=== PATIENT | male | born 1940 | race Caucasian/White ===

== ENCOUNTER → 2020-11-25 12:56 | Outpatient (CLI) | payer MEDICARE, SELFPAY ==
--- NOTE | ~2020-11-25 | XR_ITS ---
EXAMINATION: XR lumbar spine 2-3V EXAM DATE: 11/25/2020 13:19 INDICATION: Low back pain, symptoms for years. TECHNIQUE: Lumber spine frontal, lateral, lateral L5-S1 projections for interpretation. There is no prior study for comparison. FINDINGS: There is moderate to severe disc disease at all lumbar levels. Mild diffuse loss of lumbar disc heights. There are large mid and lower lumbar endplate bridging osteophytes. Mild lumbar levosco liosis. Severe lumbar facet arthropathy. There is 2-3 mm retrolisthesis L2 on L3. The vertebral rizwan s are otherwise aligned. There is mild to moderate abdominal aortic arteriosclerosis. IMPRESSION: 1. Advanced lumbar spondylosis. Reviewed, dictated and finalized at location B.
== END ==
PROVIDERS: PCP Family Medicine; Visit Provider Physician Assistant
DX: M47.816 Spondylosis without myelopathy or radiculopathy, lumbar region (principal)
CPT/HCPCS: 72100

== ENCOUNTER → 2020-12-29 14:28 | Outpatient (CLI) | payer MEDICARE, SELFPAY ==
--- NOTE | ~2020-12-29 | MR_ITS ---
EXAMINATION: MR lumbar spine wo con DATE: 12/29/2020 15:17 INDICATION: Bilateral leg weakness. TECHNIQUE: Magnetic resonance imaging (MRI) of the lumbar spine was performed without intravenous con trast. Sequences included sagittal T2-weighted FSE, sagittal T2-weighted FS FSE, sagittal T1-weighted FSE, and axial T2-weighted FSE. COMPARISON: Lumbar spine radiograph 11/25/2020 FINDINGS: There is 3 degrees levocurvature of lumbar spine. There is severely decreased disc height a t T11-T12 and from L1-L2 through L5-S1 with endplate remodeling. There is ligamentum flavum hypertrop hy at the disc levels from T11-T12 through L4-L5. Epidural lipomatosis is noted. The distal spinal co rd signal intensity is normal. The conus medullaris is at L1. There are cysts in the kidneys measurin g up to 3.1 cm on the right. The following disc levels are specifically discussed: L1-L2: The disc is bulging. There is moderate bilateral facet joint osteoarthritis. There is moderate bilateral neural foraminal stenosis. There is mild central canal stenosis. L2-L3: The disc is bulging. There is moderate right and mild left facet joint osteoarthritis. There i s moderate bilateral neural foraminal stenosis. There is severe central canal stenosis. L3-L4: The disc is bulging. There is severe bilateral facet joint osteoarthritis. There is severe alfonzo ateral neural foraminal stenosis. There is severe central canal stenosis. L4-L5: The disc is bulging. There is severe bilateral facet joint osteoarthritis. There is moderate b ilateral neural foraminal stenosis. There is severe central canal stenosis. L5-S1: The disc is bulging. There is severe right and moderate left facet joint osteoarthritis. There is moderate bilateral neural foraminal stenosis. There is mild central canal stenosis. IMPRESSION: 1. Severe lumbar spondylosis. Reviewed, dictated and finalized at location A.
== END ==
PROVIDERS: PCP Family Medicine; Visit Provider Physician Assistant
DX: R29.898 Other symptoms and signs involving the musculoskeletal system (principal); M47.816 Spondylosis without myelopathy or radiculopathy, lumbar region
CPT/HCPCS: 72148

== ENCOUNTER → 2021-01-14 07:41 | Outpatient (CLI) | payer MEDICARE, SELFPAY ==
--- NOTE | ~2021-01-14 | MR_ITS ---
EXAMINATION: MR cervical spine wo con EXAM DATE: 01/14/2021 08:44 INDICATION: Cervical stenosis of spine neck pain right leg numbness, no trauma, prostate ca x 14 yr s . TECHNIQUE: Multi-sequential, multiplanar MR images of the cervical spine were obtained without contra st. Axial T2, axial T2 MERGE sequence. Sagittal T1, T2, T2 fat saturation images also obtained. Th ere is no prior study for comparison. FINDINGS: Moderate to severe disc disease at C5-6 and C6-7. There is 2 mm anterolisthesis C4 on C5, 2 mm retrolisthesis C5 on C6 and C6 on C7. Cord is being compressed at the C3-4 level from both disc bulge and posterior ligamentum flavum hyper trophy, with no CSF space identified surrounding the cord. Central canal measures about [address] There is also vaguely increased T2 cord signal intensity identified on the sagittal T2 fat satur ation sequence, not identified on the other T2-weighted sequences, could be minimal edema. Patient ma y benefit from steroid administration. Cervicomedullary junction is normal in appearance. There are no suspicious marrow signal abnormalitie s. Paraspinal soft tissue is unremarkable. Level by level evaluation: C2-C3: Disc does not extend beyond the endplate margin. Uncovertebral joint arthropathy: Mild bilateral. Facet joint arthropathy: Severe left, moderate right. Neural foraminal stenosis: Mild bilateral. Central canal stenosis: No stenosis. C3-C4: There is a mild diffuse disc bulge. Uncovertebral joint arthropathy: Moderate right, mild to moderate left. Facet joint arthropathy: Severe bilateral. Neural foraminal stenosis: Severe right, moderate to severe left. Central canal stenosis: Moderate, central canal narrowed to 5 mm. Spinal cord being flattened, and suspect mild edema C4-C5: There is a mild diffuse disc bulge. Uncovertebral joint arthropathy: Mild to moderate left, mild right. Facet joint arthropathy: Severe bilateral. Neural foraminal stenosis: Moderate to severe left, mild to moderate right. Central canal stenosis: Mild. C5-C6: There is a mild diffuse disc bulge asymmetric to the right Uncovertebral joint arthropathy: Moderate to severe right, moderate left. Facet joint arthropathy: Severe right, moderate left. Neural foraminal stenosis: Moderate to severe right, moderate left. Central canal stenosis: Mild. C6-C7: There is a mild diffuse disc bulge. Uncovertebral joint arthropathy: Moderate to severe left, moderate right. Facet joint arthropathy: Mild to moderate bilateral. Neural foraminal stenosis: Severe left, moderate to severe right. Central canal stenosis: Mild. C7-T1: Disc does not extend beyond the endplate margin. Uncovertebral joint arthropathy: Moderate left, mild to moderate right. Facet joint arthropathy: Mild to moderate bilateral. Neural foraminal stenosis: No stenosis. Central canal stenosis: No stenosis. IMPRESSION: 1. C3-4 cord compression, suspect mild edema at this level. Consider steroid administration. 2. Advanced arthropathy causing significant multilevel neural foraminal stenosis. I discussed cord compression, recommendation with Peri in the office of Kristopher PAIGE, who ordered the examination. She stated she would convey the information through [facility] that ROYAL is gone for the day. Conversation at 01/14/2021 16:09 CDT. They have my direct office denis ne number for any questions. Reviewed, dictated and finalized at location A. IMPRESSION: 1. C3-4 cord compression, suspect mild edema at this level. Consider steroid a dministration. 2. Advanced arthropathy causing significant multilevel neural foraminal stenos is. I discussed cord co
== END ==
PROVIDERS: PCP Family Medicine
DX: M48.02 Spinal stenosis, cervical region (principal)
CPT/HCPCS: 72141

== ENCOUNTER → 2022-09-06 07:08 | Outpatient (CLI) | payer MEDICARE, SELFPAY ==
--- NOTE | ~2022-09-06 | MR_ITS ---
MRI of the lumbar spine Clinical History: Radiculopathy Technique: Axial T2-weighted images, and sagittal T1-weighted, T2-weighted, and T2 fat-sat images wer e acquired. Findings: Suspected very mild, acute compression deformity at the inferior endplate region of T11, ve rsus reactive marrow signal changes due to underlying degenerative disc disease. There is extensive r eactive marrow signal in the L2 and L3 vertebral bodies due to underlying degenerative disc disease. No other fracture evident. Probable minimal grade 1 retrolisthesis of L2 over L3, and L3 over L4, and of L4 over L5. At L1-L2, there is severe degenerative disc narrowing. Disc osteophyte complex and facet arthropathy result in focal severe spinal canal stenosis/thecal sac compression. There is severe bilateral neural foraminal narrowing. At L2-L3, there is severe degenerative disc 9. Disc bulge and facet arthropathy result in severe thec al sac compression/spinal canal stenosis. There is severe bilateral neural foraminal narrowing. At L3-L4, there is severe degenerative disc narrowing. Disc ossify complex and facet arthropathy resu lt in severe thecal sac compression/spinal canal stenosis. There is severe bilateral neural foraminal narrowing. At L4-L5, there is severe degenerative disc narrowing. Disc bulge and facet arthropathy result in sev ere thecal sac compression/spinal canal stenosis. There is severe bilateral neural foraminal narrowin g. At L5-S1, disc bulge and facet arthropathy are present. No antonina spinal canal stenosis. There is enmanuel re right neural foraminal narrowing and moderate left neural foraminal narrowing. Paravertebral soft tissues are unremarkable. Impression: Severe degenerative spondylosis, as detailed above. There is severe spinal canal stenosis/thecal sac compression, as well as severe bilateral neural foraminal narrowing, at L1-L2, L2-L3, L3-L4, and L4-L 5. Minimal grade 1 retrolisthesis of L2 over L3, of L3 over L4, and of L4 over L5. Possible very mild acute compression deformity at the inferior endplate region of T11 versus reactive marrow signal changes due to underlying degenerative disc disease. Reviewed, dictated and finalized at location M. Impression: Severe degenerative spondylosis, as detailed above. There is severe spinal gardenia l stenosis/thecal sac compression, as well as severe bilateral neural foraminal narrowing, at L1-L2, L2-L3, L3-L4, and L4-L5. Minimal grade 1 retrolisthesis of L2 over L3, of L3 over L4, and of L4 over L5. Possible very mild acute compression deformity at the inferior endplate region of T11 versus reactive marrow signal changes due to underlying degenerative dis c disease.
== END ==
PROVIDERS: PCP Family Medicine; Visit Provider Nurse Practitioner Family
DX: M54.16 Radiculopathy, lumbar region (principal); M48.061 Spinal stenosis, lumbar region without neurogenic claudication; M43.16 Spondylolisthesis, lumbar region
CPT/HCPCS: 72148

== ENCOUNTER 2023-04-06 07:46 | Outpatient (CLI) | payer MEDICARE, SELFPAY | END 2023-04-06 07:47 | disposition home or self-care (01) | PROVIDERS: PCP Family Medicine; Visit Provider Family Medicine | DX: H91.93 Unspecified hearing loss, bilateral (principal) | CPT/HCPCS: 92557; 92567 ==

== ENCOUNTER 2023-06-14 07:30 | Outpatient (RCR) | payer MEDICARE, SELFPAY | END 2023-06-14 23:59 | disposition home or self-care (01) | LOC: ANHAUDIO 07:30 | PROVIDERS: PCP Family Medicine; Visit Provider Family Medicine | DX: Z46.1 Encounter for fitting and adjustment of hearing aid (principal) | CPT/HCPCS: 99199; V5261 ==

== ENCOUNTER 2023-07-19 07:56 | Outpatient (CLI) | payer MEDICARE, SELFPAY ==
[2023-07-19 13:39] LABS: Hematocrit 30.3 % (42.0-52.0); Hemoglobin 9.7 g/dL (14.0-18.0); Mean Corpuscular Hemoglobin 32.3 pg (26-34); Mean Platelet Volume 10.9 fl (7.4-10.4); Platelet Count Result 251 k/mm3 (150-375); Red Cell Distribution Width 11.9 % (11.5-14.5); White Blood Count 5.8 K/mm3 (4.5-10.0)
[2023-07-19 14:00] LABS: Albumin Level 3.9 g/dL (3.5-5.1); Anion Gap 8 mmol/L (8-16); Blood Urea Nitrogen 66 mg/dL (9-20); Calcium 9.6 mg/dL (8.4-10.2); Carbon Dioxide 28 mmol/L (22-30); Chloride 102 mmol/L (98-107); Estimated Glomerular Filt Rate 23; Glucose 124 mg/dL (65-110); Potassium 4.5 mmol/L (3.4-5.0); Sodium 138 mmol/L (137-145)
[2023-07-19 14:11] LABS: Parathyroid Intact 205.9 pg/mL (7.5-53.5)
[2023-07-19 15:37] LABS: Total Protein Urine Random 80 mg/dL
== END 2023-07-19 07:57 | disposition home or self-care (01) ==
PROVIDERS: PCP Family Medicine; Visit Provider Internal Medicine Nephrology
DX: N18.32 Chronic kidney disease, stage 3b (principal)
CPT/HCPCS: 36415; 80069; 81050; 83970; 84156; 85027

== ENCOUNTER 2023-10-18 07:52 | Outpatient (CLI) | payer MEDICARE, SELFPAY ==
[2023-10-18 14:15] LABS: Anion Gap 11 mmol/L (4-12); Blood Urea Nitrogen 67 mg/dL (9-20); Carbon Dioxide 23 mmol/L (22-30); Chloride 103 mmol/L (98-107); Estimated Glomerular Filt Rate 19; Glucose 138 mg/dL (65-110); Potassium 4.3 mmol/L (3.4-5.0); Sodium 137 mmol/L (137-145)
== END 2023-10-18 07:53 | disposition home or self-care (01) ==
PROVIDERS: PCP Family Medicine; Visit Provider Internal Medicine Nephrology
DX: I12.9 Hypertensive chronic kidney disease with stage 1 through stage 4 chronic kidney disease, or unspecified chronic kidney disease (principal); N18.4 Chronic kidney disease, stage 4 (severe); D63.1 Anemia in chronic kidney disease; E11.22 Type 2 diabetes mellitus with diabetic chronic kidney disease
CPT/HCPCS: 36415; 80048

== ENCOUNTER 2023-10-30 13:20 | Emergency (ER) | payer MEDICARE, SELFPAY ==
--- NOTE | 2023-10-30 13:23 | ED.WOUNDLAC ---
HPI - Wound/Laceration General Chief Complaint: Skin/Abscess/Foreign Body Stated Complaint: Cut Arm Time Seen by Provider: 10/30/23 13:31 Source: patient, RN notes reviewed and old records reviewed Mode of arrival: ambulatory Limitations: no limitations History of Present Illness HPI narrative: 82-year-old male presents to the [facility] with concerns of continuing bleeding intermittently 4 skin tears to the right arm. Patient states that he fell over causing the skin tears on Sunday. Denies any loss of consciousness or hitting head. Has full range of motion of the shoulder elbow and wrist. Wounds are well cared for, no signs of infection Treatments prior to arrival: other (Dressing) Related Data Home Medications Medication Instructions Recorded Confirmed magnesium 250 mg tablet 250 mg PO DAILY 08/21/19 10/30/23 Allergies Allergy/AdvReac Type Severity Reaction Status Date / Time allopurinol Allergy Unknown Skin Verified 10/30/23 13:30 Reaction diclofenac Allergy Unknown Pt doesn't Verified 10/30/23 13:30 know doxycycline Allergy Unknown hands Verified 10/30/23 13:30 probenecid Allergy Unknown Skin Verified 10/30/23 13:30 Reaction GOUT MED Allergy Severe RASH Uncoded 10/30/23 13:30 Review of Systems Review of Systems: All systems reviewed & are unremarkable except as noted in HPI and below Constitutional: Constitutional: Reports no additional constitutional complaints Eyes: Eyes: Reports no additional eye complaints ENT: Reports system reviewed and no additional complaints, except as documented Cardiovascular: Cardiovascular: Reports no additional cardiovascular complaints, Denies chest pain and Denies dyspnea Respiratory: Respiratory: Reports no additional respiratory complaints, Denies chest congestion, Denies cough and Denies dyspnea Gastrointestinal: Gastrointestinal: Reports no additional gastrointestinal complaints, Denies abdominal pain, Denies nausea and Denies vomiting Musculoskeletal: Musculoskeletal: Reports no additional musculoskeletal complaints Integumentary/Breasts: Skin/Breast: Reports as per HPI Neurologic: Reports system reviewed and no additional complaints, except as documented Psychiatric: Psychiatric: Reports no additional psychiatric complaints Allergic/Immunologic: Allergic/Immunologic: Reports no additional allergic/immunologic complaints PMFSH Past Medical History Medical History Anemia, unspecified Atherosclerosis of aorta Benign hypertension Chronic kidney disease, stage III (moderate) Elevated prostate specific antigen [PSA] Osteoarthrosis, localized, primary, involving hand Osteoarthrosis, localized, primary, involving lower leg Other specified diabetes mellitus with diabetic neuropathy, unspecified Pure hyperglyceridemia Surgical History Surgical History H/O arthroscopy of knee H/O cataract extraction H/O laminectomy C3-C4 0913- History of appendectomy History of carpal tunnel release History of repair of rotator cuff Family History Family History Mother Hypertension, Onset Age: 72 Father Malignant neoplasm of prostate, Onset Age: 76 Social History Social History Smoking status: Never smoker Alcohol intake: current Substance use: never Do You Feel Safe in your Home?: Yes Lack of Transportation: No Lack of Food: Never True Current Housing: I Have Housing Concerned About Future Housing: No Difficulty Paying Gas/Electric Bills: No Difficulty Paying for Meds: No Currently Unemployed: No Education: High School Diploma/GED Difficulty w/ Childcare or Family Care: No Gender identity (if verbalized by the patient): Male Comments At the time of my signature, I reviewed and agre
[2023-10-30 13:27] VITALS: BP 148/77; PULSE 74; RESP 16; TEMP 37.2; O2SAT 99
== END 2023-10-30 13:46 | disposition home or self-care (01) ==
PROVIDERS: Emergency Provider Nurse Practitioner; PCP Family Medicine
DX: S51.811A Laceration without foreign body of right forearm, initial encounter (principal); S41.111A Laceration without foreign body of right upper arm, initial encounter; W19.XXXA Unspecified fall, initial encounter; N18.30 Chronic kidney disease, stage 3 unspecified; I12.9 Hypertensive chronic kidney disease with stage 1 through stage 4 chronic kidney disease, or unspecified chronic kidney disease; E11.22 Type 2 diabetes mellitus with diabetic chronic kidney disease
CPT/HCPCS: 99212; G0463

== ENCOUNTER 2023-11-15 08:01 | Outpatient (CLI) | payer MEDICARE, SELFPAY ==
[2023-11-15 15:20] LABS: Hemoglobin A1C 5.8 % (<5.7)
[2023-11-15 16:27] LABS: Alanine Aminotransferase 15 U/L (6-50); Albumin Level 3.9 g/dL (3.5-5.1); Alkaline Phosphatase 61 U/L (38-126); Anion Gap 11 mmol/L (4-12); Aspartate Amino Transferase 38 U/L (17-59); Bilirubin,Total 0.6 mg/dL (0.2-1.3); Blood Urea Nitrogen 79 mg/dL (9-20); Calcium 9.7 mg/dL (8.4-10.2); Carbon Dioxide 21 mmol/L (22-30); Chloride 105 mmol/L (98-107); Cholesterol 130 mg/dL (0-200); Estimated Glomerular Filt Rate 19; Glucose 129 mg/dL (65-110); HDL Direct 59 mg/dL; Potassium 4.4 mmol/L (3.4-5.0); Sodium 137 mmol/L (137-145); Triglycerides 92 mg/dL (<150)
[2023-11-15 16:37] LABS: LDL Cholesterol Direct 59 mg/dL
== END 2023-11-15 08:02 | disposition home or self-care (01) ==
PROVIDERS: PCP Family Medicine; Visit Provider Family Medicine
DX: E11.9 Type 2 diabetes mellitus without complications (principal); Z13.220 Encounter for screening for lipoid disorders; Z13.228 Encounter for screening for other metabolic disorders
CPT/HCPCS: 36415; 80053; 80061; 83036

== ENCOUNTER 2023-11-26 07:59 | Outpatient (CLI) | payer MEDICARE, SELFPAY ==
[2023-11-26 12:59] LABS: Appearance Urine Clear (Clear); Bacteria Urine None Seen /hpf; Bilirubin Urine Negative (Negative); Blood Urine Negative (Negative); Color Urine Yellow (Yellow); Glucose Urine UA Negative (Negative); Ketones Urine Negative (Negative); Leukocyte Esterase Ur Negative LEU/UL (Negative); Nitrate Urine Negative (Negative); Non Pathogenic Casts 0-2; Protein Urine 1+ mg/dL (Negative); RBC Urine 0-2 /hpf (0-2); Specific Grav Ur 1.011 (1.001-1.035); Squamous Epithelial Cell Urine None Seen /hpf (Few); Urobilinogen Urine 0.2 mg/dL (<2.0); WBC Urine 0-5 /hpf (0-3); pH Urine 7.5 (5.0-9.0)
[2023-11-26 13:07] LABS: Add Urine Microscopic? YES
[2023-11-26 13:15] LABS: Albumin Level 3.9 g/dL (3.5-5.1); Anion Gap 8 mmol/L (4-12); Blood Urea Nitrogen 67 mg/dL (9-20); Calcium 9.6 mg/dL (8.4-10.2); Carbon Dioxide 26 mmol/L (22-30); Chloride 103 mmol/L (98-107); Estimated Glomerular Filt Rate 21; Glucose 110 mg/dL (65-110); Phosphorus 4.3 mg/dL (2.5-4.5); Potassium 4.6 mmol/L (3.4-5.0); Sodium 137 mmol/L (137-145)
== END 2023-11-26 08:00 | disposition home or self-care (01) ==
PROVIDERS: PCP Family Medicine; Visit Provider Internal Medicine Nephrology
DX: N18.32 Chronic kidney disease, stage 3b (principal)
CPT/HCPCS: 36415; 80069; 81001

== ENCOUNTER 2024-01-08 07:57 | Outpatient (CLI) | payer MEDICARE, SELFPAY ==
[2024-01-08 13:13] LABS: Hematocrit 31.9 % (42.0-52.0); Hemoglobin 10.4 g/dL (14.0-18.0); Mean Corpuscular HGB Conc 32.6 g/dl (32-36); Mean Corpuscular Volume 98.2 fl (80-100); Mean Platelet Volume 10.4 fl (7.4-10.4); Platelet Count Result 276 k/mm3 (150-375); Red Blood Count 3.25 M/mm3 (4.6-6.20); Red Cell Distribution Width 12.5 % (11.5-14.5); White Blood Count 7.2 K/mm3 (4.5-10.0)
[2024-01-08 13:16] LABS: Creatine Kinase 84 U/L (55-170)
[2024-01-08 13:29] LABS: Anion Gap 10 mmol/L (4-12); Blood Urea Nitrogen 52 mg/dL (9-20); Calcium 9.3 mg/dL (8.4-10.2); Carbon Dioxide 26 mmol/L (22-30); Chloride 102 mmol/L (98-107); Estimated Glomerular Filt Rate 22; Glucose 106 mg/dL (65-110); Potassium 4.7 mmol/L (3.4-5.0); Sodium 138 mmol/L (137-145)
[2024-01-08 13:33] LABS: Parathyroid Intact 271.3 pg/mL (7.5-53.5)
[2024-01-08 13:55] LABS: Creatinine Urine 57.9 mg/dL; Total Protein Urine Random 109 mg/dL; Ur Ttl Prot Creatinine Ratio 1.88 mg/mg (0-0.20)
[2024-01-08 14:06] LABS: Vitamin D 25 Hydroxy 70.8 ng/mL
[2024-01-09 13:35] LABS: Sodium Urine Random 81 meq/L
[2024-01-09 13:38] LABS: Appearance Urine Clear (Clear); Bacteria Urine None Seen /hpf; Bilirubin Urine Negative (Negative); Blood Urine Negative (Negative); Color Urine Yellow (Yellow); Glucose Urine UA Negative (Negative); Ketones Urine Negative (Negative); Leukocyte Esterase Ur Negative LEU/UL (Negative); Nitrate Urine Negative (Negative); Non Pathogenic Casts 0-2; Protein Urine 2+ mg/dL (Negative); RBC Urine 0-2 /hpf (0-2); Squamous Epithelial Cell Urine None Seen /hpf (Few); Urobilinogen Urine 0.2 mg/dL (<2.0); WBC Urine 0-5 /hpf (0-3); pH Urine 7.5 (5.0-9.0)
[2024-01-09 14:09] LABS: Add Urine Microscopic? YES
== END 2024-01-08 07:58 | disposition home or self-care (01) ==
PROVIDERS: PCP Family Medicine; Visit Provider Internal Medicine Nephrology
DX: E11.22 Type 2 diabetes mellitus with diabetic chronic kidney disease (principal); I12.9 Hypertensive chronic kidney disease with stage 1 through stage 4 chronic kidney disease, or unspecified chronic kidney disease; N18.4 Chronic kidney disease, stage 4 (severe); D63.1 Anemia in chronic kidney disease
CPT/HCPCS: 36415; 80069; 81001; 82306; 82550; 82570; 83970; 84156; 84300; 85027

== ENCOUNTER 2024-02-12 16:42 | Observation (INO) | payer MEDICARE, SELFPAY ==
[2024-02-12] VITALS (13 sets, daily range): BP systolic 149–165; BP diastolic 58–68; PULSE 68–88; RESP 15–20; TEMP 36.3–36.6; O2SAT 96–100; BMI 27.2
--- NOTE | ~2024-02-12 | XR_ITS ---
EXAMINATION: XR chest 2V DATE: 02/12/2024 20:48 INDICATION: Dyspnea TECHNIQUE: PA and lateral views of the chest were obtained. COMPARISON: Chest radiograph dated 11/21/2017 FINDINGS: Small bilateral pleural effusions with adjacent associated compressive atelectasis in the basilar low er lobes. No other airspace opacities, pulmonary edema or pneumothorax. Severe thoracic spondylosis. Dystrophic calcification is at the bilateral shoulders which could represent chondral calcinosis, landen cific tendinitis or most likely combination thereof. Postoperative change of prior distal right clavi donald resection and right acromioplasty. Partially visualized anterior plate and screw fixation for mid cervical anterior spinal fusion. IMPRESSION: 1. Small bilateral pleural effusions with bibasilar atelectasis. Reviewed, dictated and finalized at location A.
--- NOTE | ~2024-02-12 | US_ITS ---
EXAMINATION: US renal BI DATE: 02/14/2024 08:46 INDICATION: Acute renal insufficiency TECHNIQUE: Multiple ultrasound grayscale images of the kidneys were obtained. COMPARISON: 09/25/2011 FINDINGS: The right kidney measures 10.2 x 5.0 x 4.3 cm. The left kidney measures 11.6 x 5.3 x 4.3 cm. There is bilateral increased renal cortical echogenicity consistent with medical renal disease. There are alfonzo ateral renal cysts the two largest on the right measuring 2.8 cm and the largest on the left measurin g 2.6 cm. There is no hydronephrosis in either kidney. No stones identified. The bladder is normal. IMPRESSION: 1. Bilateral renal cysts. No hydronephrosis. 2. Bilateral increased renal cortical echogenicity consistent with medical renal disease. Reviewed, dictated and finalized at location A. IMPRESSION: 1. Bilateral renal cysts. No hydronephrosis. 2. Bilateral increased renal cortical echogenicity consistent with medical georgiana l disease.
--- NOTE | 2024-02-12 16:49 | ED.GENADULT ---
HPI - General Adult General Chief complaint: Allergic Reaction <Markie Lockwood APRN - Last Filed: 02/12/24 16:50> Stated complaint: allergic rxn <Markie Lockwood APRN - Last Filed: 02/12/24 16:50> Time Seen by Provider: 02/12/24 19:43 <Markie Lockwood GEOTHERMAL SYSTEM INSTALLER - Last Filed: 02/12/24 16:50> Focused HPI: GENERAL: Well-appearing, well-nourished, and in no acute distress. HEAD: Normocephalic, atraumatic. CHEST: Clear to auscultation. No respiratory distress. HEART: Regular rate and rhythm. NEURO: Alert and oriented x3. Patient screened in triage and initial orders placed. Additional care and disposition to be based upon diagnostic testing and treatment. A 3-year-old male history of hypertension CKD presenting to evaluation of bilateral lower extremity swelling. Patient states he was recently placed on amlodipine for additional blood pressure management, states he started to experience swelling to both of his lower extremities and having difficulty opening up his pants due to swelling in his abdomen. Patient contact his PCP and was told to come to the emergency room for further evaluation. Patient states his last dose of amlodipine was yesterday. <Markie Lockwood APRN - Last Filed: 02/12/24 16:50> Focused HPI: GENERAL: Well-appearing, well-nourished, and in no acute distress. HEAD: Normocephalic, atraumatic. CHEST: Clear to auscultation. No respiratory distress. HEART: Regular rate and rhythm. NEURO: Alert and oriented x3. Patient screened in triage and initial orders placed. Additional care and disposition to be based upon diagnostic testing and treatment. A 83-year-old male history of hypertension CKD presenting to evaluation of bilateral lower extremity swelling. Patient states he was recently placed on amlodipine for additional blood pressure management, states he started to experience swelling to both of his lower extremities and having difficulty opening up his pants due to swelling in his abdomen. Patient contact his PCP and was told to come to the emergency room for further evaluation. Patient states his last dose of amlodipine was yesterday. <Brandt Villavicencio MD - Last Filed: 02/12/24 22:43> History of Present Illness HPI narrative: patient 83-year-old gentleman who presents emergency department with chief complaint of shortness of breath and increasing peripheral edema. Patient has prior history of renal insufficiency and reports that he was recently started on amlodipine. Patient reports he has been having increasing swelling all the way up to his abdomen and now is typed put on his pants the patient reports he has been having shortness of breath worse with exertion. <Brandt Villavicencio MD - Last Filed: 02/12/24 22:43> Related Data Home medications: Home Medications Medication Instructions Recorded Confirmed magnesium 250 mg tablet 250 mg PO .3 times weekly 12/03/23 02/12/24 labetalol 100 mg tablet 100 mg PO BID 01/15/24 02/12/24 febuxostat 80 mg tablet 80 mg PO DAILY 02/12/24 02/12/24 lisinopril 20 mg tablet 10 mg PO BID 02/12/24 02/12/24 simvastatin 40 mg tablet 40 mg PO QACDINNER 02/12/24 02/12/24 <Markie Lockwood, GEOTHERMAL SYSTEM INSTALLER - Last Filed: 02/12/24 16:50> Allergies/adverse reactions: Allergies Allergy/AdvReac Type Severity Reaction Status Date / Time allopurinol Allergy Unknown Skin Verified 01/15/24 08:47 Reaction diclofenac Allergy Unknown Pt doesn't Verified 01/15/24 08:47 know doxycycline Allergy Unknown hands Verified 01/15/24 08:47 probenecid Allergy Unknown Skin Verified 01/15/24 08:47 Reaction <Markie Lockwood, GEOTHERMAL SYSTEM INSTALLER - Last Filed: 02/12/24 16:50> Review of Systems Review of Systems: A 10 system review of systems was completed on the patient and is negative except for what is stated in the HPI. Nursing and ancillary documentation was reviewed. <Brandt Villavicencio MD - Last Filed: 02/12/24 22:43> [facility] P
[2024-02-12 17:08] LABS: Basophils Absolute Auto 0.1 K/mm3 (0.0-0.1); Basophils Percent Auto 0.9 % (0.2-1.2); Eosinophils Absolute Auto 0.9 K/mm3 (0-0.3); Eosinophils Percent Auto 9.1 % (0-4.4); Hematocrit 26.9 % (42.0-52.0); Hemoglobin 9.1 g/dL (14.0-18.0); Immature Granulocyte Absolute 0.02 K/mm3 (0.00-0.031); Immature Granulocyte Percent A 0.2 % (0-0.5); Lymphocytes Absolute Auto 2.01 K/mm3 (0.9-3.2); Lymphocytes Percent Auto 20.1 % (18.3-44.2); Mean Corpuscular HGB Conc 33.8 g/dl (32-36); Mean Corpuscular Hemoglobin 32.9 pg (26-34); Mean Corpuscular Volume 97.1 fl (80-100); Mean Platelet Volume 10.3 fl (7.4-10.4); Monocytes Absolute Auto 1.2 K/mm3 (0.1-0.6); Monocytes Percent Auto 12.4 % (2.6-8.5); Neutrophils Absolute Auto 5.7 K/mm3 (1.3-6.7); Neutrophils Percent Auto 57.3 % (45.5-73.1); Platelet Count Result 272 k/mm3 (150-375); Red Blood Count 2.77 M/mm3 (4.6-6.20); Red Cell Distribution Width 12.9 % (11.5-14.5)
[2024-02-12 17:12] LABS: Sodium 136 mmol/L (137-145)
[2024-02-12 17:13] LABS: Alanine Aminotransferase 15 U/L (6-50); Albumin Level 3.7 g/dL (3.5-5.1); Alkaline Phosphatase 69 U/L (38-126); Anion Gap 14 mmol/L (4-12); Aspartate Amino Transferase 22 U/L (17-59); Bilirubin,Total 0.4 mg/dL (0.2-1.3); Blood Urea Nitrogen 66 mg/dL (9-20); Calcium 9.2 mg/dL (8.4-10.2); Carbon Dioxide 15 mmol/L (22-30); Chloride 107 mmol/L (98-107); Estimated CRCL calculation 12 ml/min; Estimated Glomerular Filt Rate 17; Glucose 99 mg/dL (65-110); Potassium 4.6 mmol/L (3.4-5.0)
[2024-02-12 17:21] LABS: NT Pro B Type Natriuretic Pept 8480 pg/mL (19.9-100)
--- NOTE | 2024-02-12 20:08 | ECG_ITS ---
Test Date: 2024-02-12 20:21:20 Measurements Intervals [place] Rate: 69 P: 32 HI: 204 QRS: -32 QRSD: 86 T: 13 QT: 406 QTc: 437 Interpretive Statements SINUS RHYTHM MARKED LEFT AXIS DEVIATION [QRS AXIS < -30] No previous ECG available for comparison Electronically Signed On 02-13-2024 15:52:41 CDT by Chai Shaw M.D.
[2024-02-12 20:32] LABS: Add Urine Microscopic? YES; Appearance Urine Clear (Clear); Bacteria Urine None Seen /hpf; Bilirubin Urine Negative (Negative); Blood Urine Negative (Negative); Color Urine Yellow (Yellow); Glucose Urine UA Negative (Negative); Ketones Urine Negative (Negative); Leukocyte Esterase Ur Negative LEU/UL (Negative); Nitrate Urine Negative (Negative); Non Pathogenic Casts 0-2; Protein Urine 2+ mg/dL (Negative); RBC Urine 0-2 /hpf (0-2); Specific Grav Ur 1.012 (1.001-1.035); Squamous Epithelial Cell Urine None Seen /hpf (Few); Urobilinogen Urine 0.2 mg/dL (<2.0); WBC Urine 0-5 /hpf (0-3)
[2024-02-12 20:37] LABS: Troponin I < 0.012 ng/mL (0.000-0.034)
[2024-02-12] MEDS: FUROSEMIDE INJ 40 MG/4 ML VIAL IV PUSH (22:42)
--- NOTE | 2024-02-12 23:43 | ADMGEN ---
This patient, Shantanu Burleson Jr., was admitted to Medical Room 340-01. Patient/family oriented to hospital policies and general routines including ID bracelet, bed and alarms, visiting hours, pain management, procedures, bathroom and other care routines, personal items, smoking policy, room service/diet, and visiting hours. Information on how to activate the Rapid Response Team has been discussed. Patient/Family are encouraged to report perceived risks to care and to ask questions if they do not understand what they are told or what they should do.
[2024-02-13] VITALS (9 sets, daily range): BP systolic 119–151; BP diastolic 51–55; PULSE 58–80; RESP 16–20; TEMP 36.3–36.7; O2SAT 97–99
--- NOTE | 2024-02-13 | ECHO_ITS ---
Patient Info Name: Shantanu Burleson Age: 83 years : 1940 Gender: Male Ht: 63 in Wt: 143 lbs BSA: 1.71 m2 HR: 71 bpm BP: 151 / 58 mmHg Technical Quality: Fair Exam Date: 02/13/2024 9:48 AM Exam Location: Echo Lab Patient Status: Outpatient Admit Date: 02/12/2024 Staff Ordering Physician: Anna Azar DO Folding Machine Tender: Lisa Hogan RDCS Attending Provider: Anna Azar DO Referring Physician: Doe LUIS; Exam Type: CA echo dop color flow w con Study Info Indications - CHF SYMPTOMS Complete two-dimensional, color flow and Doppler transthoracic echocardiogram is performed with contrast to opacify the left ventricle and to improve the deliniation of the left ventricle endocardial borders. Contrast/Agitated Saline Contrast/Ag. Saline: Definity Amount: 3.00 ml Summary 1. Definity contrast administered improved wall motion interpretation. 2. Left ventricular chamber dimension is normal. 3. Left ventricular systolic function is normal, estimated at 65-70%. 4. The left ventricular diastolic function is abnormal. 5. E/e' 12 is mildly elevated. 6. The aortic valve is not well visualized. Cannot determine number of aortic valve leaflets. 7. There is moderate aortic valve sclerosis. 8. The mitral valve has moderately calcified annulus. 9. There is mild mitral valve regurgitation. 10. There is mild to moderate tricuspid valve regurgitation. 11. No pulmonary hypertension, estimated pulmonary arterial systolic pressure is 37 mmHg. Left Ventricle Definity contrast administered improved wall motion interpretation. E/e' 12 is mildly elevated. Left ventricular chamber dimension is normal. Left ventricular systolic function is normal, estimated at 65-70%. The left ventricular diastolic function is abnormal. Right Ventricle Right ventricular systolic function is normal and with normal TAPSE 2.9 cm. Right ventricular chamber dimension is normal. Left Atria Left atrial chamber dimension is normal. Right Atria Right atrial chamber dimension is normal. Aortic Valve The aortic valve is not well visualized. Cannot determine number of aortic valve leaflets. There is no aortic valve stenosis based on valve area and gradients. There is moderate aortic valve sclerosis. There is no aortic valve regurgitation. Pulmonic Valve There is no pulmonic regurgitation. Mitral Valve The mitral valve has moderately calcified annulus. There is no mitral valve stenosis. There is mild mitral valve regurgitation. Tricuspid Valve There is mild to moderate tricuspid valve regurgitation. No pulmonary hypertension, estimated pulmonary arterial systolic pressure is 37 mmHg. Pericardium/Pleural There is no pericardial effusion. Inferior Vena Cava Normal inferior vena cava with >50% collapse upon inspiration consistent with normal right atrial pressure, 5 mmHg. Aorta The aortic root size at the sinus of Valsalva is normal. Left Ventricular Outflow Tract Name Value Normal LVOT 2D LVOT Diameter 1.88 cm LVOT Doppler LVOT Peak Gradient 5 mmHg LVOT Mean Gradient 3 mmHg LVOT VTI 30.83 cm
[2024-02-13] MEDS: LABETALOL HCL 100 MG TABLET PO ×2 (08:04→16:19)
[2024-02-13] MEDS: hydrALAZINE HCL 50 MG TABLET PO ×2 (08:04→16:20)
[2024-02-13] MEDS: lisinopriL 10 MG TABLET PO (08:04)
[2024-02-13] MEDS: FUROSEMIDE INJ 40 MG/4 ML VIAL IV PUSH (08:04)
--- NOTE | 2024-02-13 08:34 | PM.IMHP ---
H&P: HPI History of Present Illness Date/Time: 02/13/24 08:34 Chief Complaint: Leg swelling Narrative: 83-year-old male with a past medical history of essential hypertension, chronic kidney disease stage IV, diet-controlled diabetes mellitus and gout who presented to the ER with lower extremity swelling. 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 He also stated that is beta-thong with decreased from 200 mg a b.i.d. down to 100 mg state (office note actually states 100 mg down to 50 mg day?) He was taken off thiazide diuretic and lisinopril. He was switched to Norvasc. He was on the Norvasc for about 14 days. On the Norvasc his blood pressures were uncontrolled. He then and his Norvasc was discontinued and he was placed on hydralazine. He reports that when he was switched to the hydralazine his blood pressures were better. But he has continued to be edematous. Patient has edema all the way up through his thighs and into his abdomen. He does not appreciate the swelling in his thighs are abdomen but patient's does note his abdomen is distended. Patient reports a 13 lb weight gain in the 10 day interval. Patient denies any orthopnea. He does have shortness of breath on exertion but he blames this on the degree of pain he has in his back with ambulation not due to any other factors. He is limited in his activities of daily living due to chronic back pain and does not have significant opportunities to exert himself at this time. He reports that he has been losing muscle in is no longer able to lift the bags of salt for the water softener into the tub without his 's help. He denies any chest pain or palpitations. He has noticed a dry cough that developed when the swelling did. He denies any known history of heart disease or CT. Never had an echocardiogram. Review of Systems Review of Systems: 12 systems were reviewed with pertinent positives and negatives per HPI. Except as documented in the HPI, all other systems were reviewed and are negative. [facility] Past Medical History Medical History (Updated 02/13/24 @ 09:18 by Anna Azar DO) Anemia in chronic kidney disease Atherosclerosis of aorta Benign hypertension CKD (chronic kidney disease) stage 4, GFR 15-29 ml/min Diabetes mellitus Now diet controlled but required medications in the past Gout Lumbar stenosis Malignant neoplasm of prostate Mixed hyperlipidemia Osteoarthrosis, localized, primary, involving hand Osteoarthrosis, localized, primary, involving lower leg Surgical History Surgical History H/O arthroscopy of knee H/O cataract extraction H/O laminectomy C3-C4 History of appendectomy History of carpal tunnel release History of repair of rotator cuff Family History Family History Mother Hypertension, Onset Age: 72 Father Malignant neoplasm of prostate, Onset Age: 76 Social History Social History Smoking status: Former smoker Tobacco type: cigarettes Alcohol intake: current Drinks per week: 10 Substance use: never Substance use type: does not use Do You Feel Safe in your Home?: Yes Lack of Transportation: No Lack of Food: Never True Current Housing: I Have Housing Concerned About Future Housing: No Difficulty Paying Gas/Electric Bills: No Difficulty Paying for Meds: No Currently Unemployed: No Education: High School Diploma/GED Difficulty w/ Childcare or Family Care: No Gender identity (if verbalized by the patient): Male Spiritual care concerns: No Meds Home Medications and Allergies Home Medications Medication Instructions Recorded Confirmed Type magnesium 250 mg tablet 250 mg PO .3 times weekly 12/03/23 02/12/24 History labetalo
[2024-02-13] MEDS: SODIUM BICARBONATE TAB 325 MG TABLET PO ×2 (09:30→16:19)
[2024-02-13] MEDS: FEBUXOSTAT 40 MG TABLET 80 MG PO (09:31)
[2024-02-13] MEDS: PERFLUTREN LIPID MICROSPHERES 1.5 ML VIAL DILUTED TO 10 ML TOTAL VOLUME IV PUSH (10:15)
--- NOTE | 2024-02-13 10:18 | PM.CNCAR ---
Assessment and Plan Assessment and plan (1) Edema, peripheral: Code(s): R60.0 - Localized edema Status: Acute Assessment and Plan: On Lasix 40 mg IV daily being cautious due to CKD. (2) Dyspnea on exertion: Code(s): R06.09 - Other forms of dyspnea Status: Acute Assessment and Plan: Obtain echo. (3) CKD stage 4 due to type 2 diabetes mellitus: Code(s): E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; N18.4 - Chronic kidney disease, stage 4 (severe) Status: Acute Assessment and Plan: Nephrology consulted. (4) Essential (primary) hypertension: Code(s): I10 - Essential (primary) hypertension Status: Acute Assessment and Plan: High. Increase Hydralazine 50 mg TID. History of Present Illness History of Present Illness Consult date/time: 02/13/24 10:18 Reason For Visit: Peripheral edema, Shortness of breath acute on chr Narrative: 83 yr old man who is my regular cardiology patient and a patient of Dr. Tompkins presents to ER for edema. He has a history of pre-DM, hypertension, dyslipidemia, anxiety. His is at bedside. Reports he noted more edema of legs tracking up to his abdomen, more sob. Reports he is limited at walking 1 block slowly due to chronic back pain. Denies chest pain, orthopnea, PND, dizziness, palpitations. Cardiovascular Procedures Electrophysiology:: 10/03/23 EKG: Sinus bradycardia at 54 bpm, first degree AV block, delayed precordial R/S transition. 07/24/23 EKG: Sinus bradycardia at 58 bpm, first degree AV block, PAC. Review of Systems Review of Systems: All systems reviewed & are unremarkable except as noted in HPI and below Constitutional: Constitutional: Reports as per HPI, Denies chills and Denies fever(s) Cardiovascular: Cardiovascular: Reports as per HPI, Denies chest pain and Denies irregular heart rhythm Respiratory: Respiratory: Reports dyspnea Gastrointestinal: Gastrointestinal: Reports as per HPI and Denies abdominal pain Genitourinary: Genitourinary: Reports as per HPI and Denies dysuria Musculoskeletal: Musculoskeletal: Reports as per HPI and Reports back pain Neurologic: Reports as per HPI, Denies dizziness and Denies syncope [facility] Past Medical History Medical History (Updated 02/13/24 @ 09:18 by Anna Azar DO) Anemia in chronic kidney disease Atherosclerosis of aorta Benign hypertension CKD (chronic kidney disease) stage 4, GFR 15-29 ml/min Diabetes mellitus Now diet controlled but required medications in the past Gout Lumbar stenosis Malignant neoplasm of prostate Mixed hyperlipidemia Osteoarthrosis, localized, primary, involving hand Osteoarthrosis, localized, primary, involving lower leg Surgical History Surgical History H/O arthroscopy of knee H/O cataract extraction H/O laminectomy C3-C4 History of appendectomy History of carpal tunnel release History of repair of rotator cuff Family History Family History Mother Hypertension, Onset Age: 72 Father Malignant neoplasm of prostate, Onset Age: 76 Social History Social History Smoking status: Former smoker Tobacco type: cigarettes Alcohol intake: current Drinks per week: 10 Substance use: never Substance use type: does not use Do You Feel Safe in your Home?: Yes Lack of Transportation: No Lack of Food: Never True Current Housing: I Have Housing Concerned About Future Housing: No Difficulty Paying Gas/Electric Bills: No Difficulty Paying for Meds: No Currently Unemployed: No Education: High School Diploma/GED Difficulty w/ Childcare or Family Care: No Gender identity (if verbalized by the patient): Male Spiritual care concerns: No Meds Home Medications and Allerg
[2024-02-13] MEDS: HEPARIN SODIUM 5,000 UNITS/ML VIAL 5000 UNITS SUB-Q ×2 (10:35→20:11)
--- NOTE | 2024-02-13 10:38 | IVDEFINITY ---
Prior to administration of IV Definity the patient was educated on the risks and benefits of the imaging enhancing agent including potential adverse side effects. The patient verbalized understanding. Allergies were verified. No exclusion criteria were identified and at least one of the following inclusion criteria were met: 1) physician request, 2) patient technically difficult to image (per the [place] [employer] guidelines of two or more segments not discernable within the apical view), or 3) questionable left ventricular function. ?
--- NOTE | 2024-02-13 12:40 | P.CONNP_ITS ---
Assessment and Plan Assessment and plan (1) NANDINI (acute kidney injury): Code(s): N17.9 - Acute kidney failure, unspecified Status: Acute Assessment and Plan: * etiology not clear * possible related to CHF versus and element of CKD progression * holding GRISELDA-I given diuresis * check renal ultrasound, urine studies, and CPK * re-assess for proteinuria given peripheral edema * follow renal function and UOP with IV diuretics (2) Chronic kidney disease, stage IV (severe): Code(s): N18.4 - Chronic kidney disease, stage 4 (severe) Status: Chronic Assessment and Plan: * baseline creatinine seems to run ~ 2.7 - 3.2mg/dl since the beginning of this year * secondary to diabetes, hypertension, vascular disease and age-related change * follows with Dr. Pena for ongoing CKD management (3) Edema, peripheral: Code(s): R60.0 - Localized edema Status: Acute Assessment and Plan: * on diuretic therapy * possibly CHF(?) * follow response to IV diuretics (4) Dyspnea on exertion: Code(s): R06.09 - Other forms of dyspnea Status: Acute Assessment and Plan: * as noted on admission * Cardiology following * follow-up on Echo * on IV diuresis (5) Metabolic acidosis: Code(s): E87.20 - Acidosis, unspecified Status: Acute Assessment and Plan: * partly due to ARF on CKD and CKD * on oral sodium bicarbonate at this time * trend CO2 levels (6) Essential (primary) hypertension: Code(s): I10 - Essential (primary) hypertension Status: Acute Assessment and Plan: * elevated at this time * holding GRISELDA-I due to #1 and in the context of diuresis * hydralazine adjusted to compensate * follow trend of hemodynamic (7) Diabetes mellitus: Qualifiers: Chronic kidney disease stage: stage 4 (severe) Diabetes mellitus complication detail: with chronic kidney disease Diabetes mellitus complication status: with kidney complications Diabetes mellitus skilled nursing insulin use: without skilled nursing use Diabetes mellitus type: type 2 Qualified Code(s): E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; N18.4 - Chronic kidney disease, stage 4 (severe) Code(s): E11.9 - Type 2 diabetes mellitus without complications Status: Chronic Assessment and Plan: * diet controlled at this time * glycemic management per hospitalist I will continue to follow the patient with you while he remains hospitalized and make further recommendations as deemed necessary. Thank you for allowing me to participate in the care of this patient. History of Present Illness Reason for Consult Consult date: 02/13/24 Reason for consult: acute renal failure (on chronic kidney disease) Chief Complaint Chief complaint: Peripheral edema, Shortness of breath acute on chr History of Present Illness Narrative: The patient is an 83-year-old male with a past medical history as outlined below who presented to [facility] Emergency Room with complaints of increased lower extremity edema/swelling. The patient reports that he had recent medication changes as his blood pressure was not very well controlled, in the interim when these medication changes were occurring, he has noted that his lower extremity edema has progressively worsened and has extended all the way up to his thighs and lower abdomen. He apparently has gained about 13 lb in the last 1-2 weeks. He denies any PND or orthopnea but does report some shortness of breath with exertion. He se
--- NOTE | 2024-02-13 12:40 | PM.CNNEP ---
Assessment and Plan Assessment and plan (1) NANDINI (acute kidney injury): Code(s): N17.9 - Acute kidney failure, unspecified Status: Acute Assessment and Plan: etiology not clear possible related to CHF versus and element of CKD progression holding GRISELDA-I given diuresis check renal ultrasound, urine studies, and CPK re-assess for proteinuria given peripheral edema follow renal function and UOP with IV diuretics (2) Chronic kidney disease, stage IV (severe): Code(s): N18.4 - Chronic kidney disease, stage 4 (severe) Status: Chronic Assessment and Plan: baseline creatinine seems to run ~ 2.7 - 3.2mg/dl since the beginning of this year secondary to diabetes, hypertension, vascular disease and age-related change follows with Dr. Pena for ongoing CKD management (3) Edema, peripheral: Code(s): R60.0 - Localized edema Status: Acute Assessment and Plan: on diuretic therapy possibly CHF(?) follow response to IV diuretics (4) Dyspnea on exertion: Code(s): R06.09 - Other forms of dyspnea Status: Acute Assessment and Plan: as noted on admission Cardiology following follow-up on Echo on IV diuresis (5) Metabolic acidosis: Code(s): E87.20 - Acidosis, unspecified Status: Acute Assessment and Plan: partly due to ARF on CKD and CKD on oral sodium bicarbonate at this time trend CO2 levels (6) Essential (primary) hypertension: Code(s): I10 - Essential (primary) hypertension Status: Acute Assessment and Plan: elevated at this time holding GRISELDA-I due to #1 and in the context of diuresis hydralazine adjusted to compensate follow trend of hemodynamic (7) Diabetes mellitus: Qualifiers: Chronic kidney disease stage: stage 4 (severe) Diabetes mellitus complication detail: with chronic kidney disease Diabetes mellitus complication status: with kidney complications Diabetes mellitus detention insulin use: without detention use Diabetes mellitus type: type 2 Qualified Code(s): E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; N18.4 - Chronic kidney disease, stage 4 (severe) Code(s): E11.9 - Type 2 diabetes mellitus without complications Status: Chronic Assessment and Plan: diet controlled at this time glycemic management per hospitalist I will continue to follow the patient with you while he remains hospitalized and make further recommendations as deemed necessary. Thank you for allowing me to participate in the care of this patient. History of Present Illness Reason for Consult Consult date: 02/13/24 Reason for consult: acute renal failure (on chronic kidney disease) Chief Complaint Chief complaint: Peripheral edema, Shortness of breath acute on chr History of Present Illness Narrative: The patient is an 83-year-old male with a past medical history as outlined below who presented to [facility] Emergency Room with complaints of increased lower extremity edema/swelling. The patient reports that he had recent medication changes as his blood pressure was not very well controlled, in the interim when these medication changes were occurring, he has noted that his lower extremity edema has progressively worsened and has extended all the way up to his thighs and lower abdomen. He apparently has gained about 13 lb in the last 1-2 weeks. He denies any PND or orthopnea but does report some shortness of breath with exertion. He seemed to think that his shortness of breath was more associated with his back pain then exertional activities. He also reports increased fatigue in association with his back pain which limits his attack next tibias of daily living. He reports no chest pain, palpitations, dizziness, lightheadedness, fevers, chills, or any other subjective symptoms. Given the context of worsening lower extremity swelling and edema
[2024-02-13] MEDS: SIMVASTATIN 20 MG TABLET 40 MG PO (16:19)
[2024-02-14] VITALS: PULSE 73
[2024-02-14 04:00] VITALS: PULSE 72
[2024-02-14 05:53] LABS: Hematocrit 27.1 % (42.0-52.0); Hemoglobin 9.2 g/dL (14.0-18.0); Mean Corpuscular HGB Conc 33.9 g/dl (32-36); Mean Corpuscular Hemoglobin 32.7 pg (26-34); Mean Corpuscular Volume 96.4 fl (80-100); Mean Platelet Volume 10.3 fl (7.4-10.4); Platelet Count Result 270 k/mm3 (150-375); Red Blood Count 2.81 M/mm3 (4.6-6.20); White Blood Count 7.2 K/mm3 (4.5-10.0)
[2024-02-14 06:00] VITALS: BP 144/62; PULSE 77; RESP 18; TEMP 36.8; O2SAT 96
[2024-02-14 06:20] LABS: Magnesium 1.6 mg/dL (1.6-2.3)
[2024-02-14 06:22] LABS: Albumin Level 3.3 g/dL (3.5-5.1); Anion Gap 11 mmol/L (4-12); Blood Urea Nitrogen 65 mg/dL (9-20); Calcium 9.1 mg/dL (8.4-10.2); Carbon Dioxide 21 mmol/L (22-30); Chloride 104 mmol/L (98-107); Creatine Kinase 130 U/L (55-170); Estimated CRCL calculation 12 ml/min; Estimated Glomerular Filt Rate 20; Glucose 94 mg/dL (65-110); Phosphorus 4.2 mg/dL (2.5-4.5); Potassium 3.8 mmol/L (3.4-5.0); Sodium 136 mmol/L (137-145)
[2024-02-14 07:18] LABS: Creatinine Urine 30.8 mg/dL; Total Protein Urine Random 36 mg/dL; Urea Random Urine 273 MG/DL
[2024-02-14 07:41] LABS: Eosinophil Urine None Seen % (None Seen); Urine Eos QC THT
--- NOTE | 2024-02-14 07:48 | PM.PNCARD ---
Progress Note: A&P Assessment and Plan (1) Edema, peripheral: Code(s): R60.0 - Localized edema Status: Acute Assessment and Plan: On Lasix 40 mg IV daily being cautious due to CKD. Will d/c IV lasix and start 40 mg PO daily. (2) Dyspnea on exertion: Code(s): R06.09 - Other forms of dyspnea Status: Acute Assessment and Plan: Due to volume overload from CKD and mild diastolic dysfunction. 02/13/24 Echo: EF 65-70%, diastolic dysfunction (E/e' 12), mod MAC, mild MR, mild-mod TR. (3) CKD stage 4 due to type 2 diabetes mellitus: Code(s): E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; N18.4 - Chronic kidney disease, stage 4 (severe) Status: Acute Assessment and Plan: Nephrology following. (4) Essential (primary) hypertension: Code(s): I10 - Essential (primary) hypertension Status: Acute Assessment and Plan: Stable. Subjective Date/time seen: 02/14/24 07:48 Interval history: He feels good today. No chest pain or sob. Exam Const: General: cooperative, healthy appearing and comfortable Orientation/consciousness: oriented to person, oriented to place and oriented to time Resp: Auscultation: clear to auscultation bilaterally, no crackles, no rales, no rhonchi and no wheezes Cardio: Rate: regular rate Rhythm: regular rhythm Heart sounds: no murmurs Peripheral pulses: dorsalis pedis present Neuro: General: oriented to person, oriented to place and oriented to time Extrem: Right lower extremity: no edema Left lower extremity: no edema Objective Data Vital Signs Vital Signs: Vital Signs - 24 hr 02/13/24 08:04 02/13/24 08:05 02/13/24 08:04 Temperature Pulse Rate 79 75 Respiratory Rate Blood Pressure Pulse Oximetry Oxygen Delivery Room Air 02/13/24 14:00 02/13/24 16:19 02/13/24 16:03 Temperature 97.6 F Pulse Rate 58 L 80 77 Respiratory Rate 16 Blood Pressure 119/55 L Pulse Oximetry 97 Oxygen Delivery 02/13/24 20:00 02/13/24 21:35 02/13/24 20:00 Temperature 98.1 F Pulse Rate 64 78 Respiratory Rate 18 Blood Pressure 131/51 L Pulse Oximetry 99 Oxygen Delivery Room Air 02/14/24 00:00 02/14/24 04:00 02/14/24 06:00 Temperature 98.2 F Pulse Rate 73 72 77 Respiratory Rate 18 Blood Pressure 144/62 H Pulse Oximetry 96 Oxygen Delivery Intake/Output Intake/Output: Intake & Output 02/11/24 02/12/24 02/13/24 02/14/24 23:59 23:59 23:59 23:59 Intake Total 860 480 Output Total 200 2400 1500 Balance -200 -9230 -1020 Meds/Results Medications: Active Medications Generic Name Dose Route Start Last Admin Trade Name Rohith PRN Reason Stop Dose Admin Febuxostat 80 mg 02/13/24 09:00 02/13/24 09:31 Febuxostat 40 Mg Tablet PO 80 mg DAILY OLENA Administration Furosemide 40 mg 02/13/24 09:00 02/13/24 08:04 Furosemide Inj 40 Mg/4 Ml Vial IV PUSH 40 mg DAILY OLENA Administration Heparin Sodium (Porcine) 5,000 units 02/13/24 09:45 02/13/24 20:11 Heparin Sodium 5,000 Units/Ml Vial SUB-Q 5,000 units Q12HR OLENA Administration Hydralazine HCl 50 mg 02/13/24 08:00 02/13/24 16:20 Hydralazine Hcl 50 Mg Tablet PO 50 mg BIDWM OLENA Administration Labetalol HCl 100 mg 02/13/24 09:00 02/13/24 16:19 Labetalol Hcl 100 Mg Tablet PO 100 mg BID OLENA Administration Lisinopril 10 mg 02/13/24 09:00 02/13/24 08:04 Lisinopril 10 Mg Tablet PO 10 mg BID OLENA Administration Miscellaneous Information 0 each 02/13/24 05:30 02/13/24 09:33 Febuxostat 80 Mg Tablet- Please Obtain A Home Supply And Send To Pharmacy For Verification XX 03/14/24 05:29 Not Given CLARIFY OLENA Simvastatin 40 mg 02/13/24 17:00 02/13/24 16:19 Simvastatin 20 Mg Tablet PO 40 mg 1700 OLENA Administration Sodium Bicarbonate 325 mg 02/13/24 09:00 02/13/24 16:19 Sodium Bicarbonate Tab 325 Mg Tablet PO 325 mg BID
[2024-02-14 08:04] VITALS: PULSE 77
[2024-02-14 09:06] VITALS: PULSE 78; O2SAT 98
[2024-02-14] MEDS: SODIUM BICARBONATE TAB 325 MG TABLET PO (09:06)
[2024-02-14] MEDS: FEBUXOSTAT 40 MG TABLET 80 MG PO (09:06)
[2024-02-14] MEDS: hydrALAZINE HCL 50 MG TABLET PO (09:06)
[2024-02-14] MEDS: LABETALOL HCL 100 MG TABLET PO (09:06)
[2024-02-14] MEDS: FUROSEMIDE INJ 40 MG/4 ML VIAL IV PUSH (09:07)
[2024-02-14] MEDS: HEPARIN SODIUM 5,000 UNITS/ML VIAL 5000 UNITS SUB-Q (09:07)
--- NOTE | 2024-02-14 10:29 | PM.DS ---
DS: Admitting Diagnosis Discharge Date 02/14/2024 Admitting Diagnosis Shortness of breath DS: Discharge Diagnosis Discharge Diagnosis (1) CKD stage 4 due to type 2 diabetes mellitus: Code(s): E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; N18.4 - Chronic kidney disease, stage 4 (severe) Status: Acute (2) Fluid overload: Code(s): E87.70 - Fluid overload, unspecified Status: Acute DS: Summary Hospital Course Hospital Course: H&P: 83-year-old male with a past medical history of essential hypertension, chronic kidney disease stage IV, diet-controlled diabetes mellitus and gout who presented to the ER with lower extremity swelling. 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 He also stated that is beta-thong with decreased from 200 mg a b.i.d. down to 100 mg state (office note actually states 100 mg down to 50 mg day?) He was taken off thiazide diuretic and lisinopril. He was switched to Norvasc. He was on the Norvasc for about 14 days. On the Norvasc his blood pressures were uncontrolled. He then and his Norvasc was discontinued and he was placed on hydralazine. He reports that when he was switched to the hydralazine his blood pressures were better. But he has continued to be edematous. Patient has edema all the way up through his thighs and into his abdomen. He does not appreciate the swelling in his thighs are abdomen but patient's does note his abdomen is distended. Patient reports a 13 lb weight gain in the 10 day interval. Patient denies any orthopnea. He does have shortness of breath on exertion but he blames this on the degree of pain he has in his back with ambulation not due to any other factors. He is limited in his activities of daily living due to chronic back pain and does not have significant opportunities to exert himself at this time. He reports that he has been losing muscle in is no longer able to lift the bags of salt for the water softener into the tub without his 's help. He denies any chest pain or palpitations. He has noticed a dry cough that developed when the swelling did. He denies any known history of heart disease or HI. Never had an echocardiogram. ----- 02/13/24 Echo: EF 65-70%, diastolic dysfunction (E/e' 12), mod MAC, mild MR, mild-mod TR. On 02/14/2024 the patient is stable for discharge to home as he believes his symptoms have completely resolved. He is eager to get home. Breathing well on room air. Cardiology consultation completed. IV Lasix changed to 40 mg p.o. q.day and he will be sent home on that. Serum creatinine is down to 3.0 after diuresis. He will follow with his investor Dr. Travis. His metabolic acidosis is improved, he will have repeat BMP in 3 days and follow up with his kidney doctor as well Dr. Pena. Adverse effects, risk and benefits of medication discussed. His is at bedside. His questions and concerns were answered to satisfaction. He was full code during the admission. As well, lisinopril will be held due to his poor kidney function. He will follow-up with the chain saw driver on this. Time Spent with Patient Time attestation: Total time spent providing and/or coordinating discharge services: Time spent: Greater than 30 minutes Exam Const: General: cooperative and no acute distress Resp: Effort & Inspection: normal respiratory effort Auscultation: clear to auscultation bilaterally Cardio: Rate: regular rate Rhythm: regular rhythm Heart sounds: S1 normal heart sound present and S2 normal heart sound present GI: GI Palp: No abdominal tenderness Auscultation: normal bowel sounds Extrem: Other: Trace bilateral pitting edema distal to the knees DS: Data Data Completed and Pending Labs on day of discharge: Labs from last 24 hours 02/14/24 02/14/24 02/14/24 06:24 06:24 06:24 WBC RBC Hgb Hct MCV MC
== END 2024-02-14 11:21 | disposition home or self-care (01) ==
LOC: ANHED 22:43 → ANH3MED 23:03
PROVIDERS: Internal Medicine Nephrology; Nurse Practitioner Family; Admitting Provider Internal Medicine; Emergency Provider Emergency Medicine; PCP Family Medicine; Visit Provider General Practice
DX: N17.9 Acute kidney failure, unspecified (principal); E87.70 Fluid overload, unspecified; R60.0 Localized edema; R06.09 Other forms of dyspnea; E87.20 Acidosis, unspecified; I12.9 Hypertensive chronic kidney disease with stage 1 through stage 4 chronic kidney disease, or unspecified chronic kidney disease; E11.22 Type 2 diabetes mellitus with diabetic chronic kidney disease; N18.4 Chronic kidney disease, stage 4 (severe); D63.1 Anemia in chronic kidney disease; E78.2 Mixed hyperlipidemia; F17.210 Nicotine dependence, cigarettes, uncomplicated
CPT/HCPCS: 36415; 71046; 76775; 80053; 80069; 81001; 81050; 82550; 82570; 83735; 83880; 84156; 84484; 84540; 85025; 85027; 85999; 93005; 96372; 96374; 96375; 96376; 99285; A9270; C8929; G0378; J1644; J1940; Q9957

== ENCOUNTER 2024-02-18 08:00 | Outpatient (CLI) | payer MEDICARE, SELFPAY ==
[2024-02-18 14:52] LABS: Anion Gap 14 mmol/L (4-12); Blood Urea Nitrogen 70 mg/dL (9-20); Calcium 9.2 mg/dL (8.4-10.2); Carbon Dioxide 23 mmol/L (22-30); Chloride 99 mmol/L (98-107); Estimated Glomerular Filt Rate 17; Glucose 107 mg/dL (65-110); Potassium 4.1 mmol/L (3.4-5.0); Sodium 136 mmol/L (137-145)
== END 2024-02-18 08:01 | disposition home or self-care (01) ==
LOC: ANHGOSHLAB 08:01
PROVIDERS: PCP Family Medicine; Visit Provider General Practice
DX: E11.22 Type 2 diabetes mellitus with diabetic chronic kidney disease (principal); N18.4 Chronic kidney disease, stage 4 (severe)
CPT/HCPCS: 36415; 80048

== ENCOUNTER 2024-03-20 07:57 | Outpatient (CLI) | payer MEDICARE, SELFPAY ==
[2024-03-20 15:25] LABS: Anion Gap 11 mmol/L (4-12); Blood Urea Nitrogen 77 mg/dL (9-20); Calcium 9.3 mg/dL (8.4-10.2); Carbon Dioxide 27 mmol/L (22-30); Chloride 97 mmol/L (98-107); Estimated Glomerular Filt Rate 19; Glucose 103 mg/dL (65-110); Potassium 3.7 mmol/L (3.4-5.0); Sodium 135 mmol/L (137-145)
== END 2024-03-20 07:58 | disposition home or self-care (01) ==
LOC: ANHGOSHLAB 07:58
PROVIDERS: PCP Family Medicine; Visit Provider Internal Medicine Nephrology
DX: N18.4 Chronic kidney disease, stage 4 (severe) (principal)
CPT/HCPCS: 36415; 80048

== ENCOUNTER → 2024-05-15 14:29 | Outpatient (REF) | payer MEDICARE, SELFPAY | LOC: ANHLAB 14:29 | PROVIDERS: PCP Family Medicine; Visit Provider Physician Assistant Surgical | DX: C44.319 Basal cell carcinoma of skin of other parts of face (principal) | CPT/HCPCS: 88305 ==

== ENCOUNTER 2024-07-04 08:03 | Outpatient (CLI) | payer MEDICARE, SELFPAY ==
[2024-07-04 17:58] LABS: Mean Corpuscular HGB Conc 32.1 g/dl (32-36); Mean Corpuscular Hemoglobin 30.9 pg (26-34); Mean Corpuscular Volume 96.2 fl (80-100); Mean Platelet Volume 10.4 fl (7.4-10.4); Platelet Count Result 268 k/mm3 (150-375); Red Blood Count 2.91 M/mm3 (4.6-6.20); Red Cell Distribution Width 13.2 % (11.5-14.5); White Blood Count 7.9 K/mm3 (4.5-10.0)
[2024-07-04 18:08] LABS: Alanine Aminotransferase 16 U/L (6-50); Albumin Level 3.8 g/dL (3.5-5.1); Alkaline Phosphatase 63 U/L (38-126); Anion Gap 12 mmol/L (4-12); Aspartate Amino Transferase 26 U/L (17-59); Bilirubin,Total 0.6 mg/dL (0.2-1.3); Blood Urea Nitrogen 72 mg/dL (9-20); Calcium 9.3 mg/dL (8.4-10.2); Carbon Dioxide 26 mmol/L (22-30); Chloride 100 mmol/L (98-107); Cholesterol 119 mg/dL (0-200); Estimated Glomerular Filt Rate 17; Glucose 106 mg/dL (65-110); HDL Direct 55 mg/dL; Potassium 4.1 mmol/L (3.4-5.0); Sodium 138 mmol/L (137-145); Triglycerides 80 mg/dL (<150)
[2024-07-04 18:13] LABS: Albumin Level 3.8 g/dL (3.5-5.1); Anion Gap 11 mmol/L (4-12); Blood Urea Nitrogen 71 mg/dL (9-20); Calcium 9.2 mg/dL (8.4-10.2); Carbon Dioxide 26 mmol/L (22-30); Chloride 99 mmol/L (98-107); Estimated Glomerular Filt Rate 17; Glucose 105 mg/dL (65-110); Phosphorus 4.6 mg/dL (2.5-4.5); Potassium 4.1 mmol/L (3.4-5.0); Sodium 136 mmol/L (137-145)
[2024-07-04 18:19] LABS: LDL Cholesterol Direct 39 mg/dL
[2024-07-04 18:20] LABS: Parathyroid Intact 185.7 pg/mL (14.5-75.2); Total Protein Urine Random 102 mg/dL
[2024-07-04 18:29] LABS: Vitamin D 25 Hydroxy 58.6 ng/mL
[2024-07-04 18:31] LABS: Creatinine Urine 49.9 mg/dL; Ur Ttl Prot Creatinine Ratio 2.04 mg/mg (0-0.20)
[2024-07-04 18:32] LABS: Creatinine Urine 49.1 mg/dL
[2024-07-04 18:49] LABS: MALB Creatinine Ratio 753.4 mg/g (0-30); Microalbumin Urine Random 369.9 mg/L (0-16.7)
== END 2024-07-04 08:04 | disposition home or self-care (01) ==
LOC: ANHGOSHLAB 08:05
PROVIDERS: Emergency Medicine; PCP Family Medicine; Visit Provider Internal Medicine Nephrology
DX: E78.5 Hyperlipidemia, unspecified (principal); E55.9 Vitamin D deficiency, unspecified; E11.9 Type 2 diabetes mellitus without complications; N18.4 Chronic kidney disease, stage 4 (severe)
CPT/HCPCS: 36415; 80053; 80061; 80069; 82043; 82306; 82570; 83036; 83970; 84156; 85027

== ENCOUNTER 2024-10-20 09:00 | Outpatient (RCR) | payer MEDICARE, SELFPAY ==
--- NOTE | 2024-09-11 09:02 | OPREHPOC ---
Outpatient Therapy Plan of Care This is a Multidisciplinary Plan of Care that may contain components documented by all disciplines (PT, OT, and ST.) PT Problem 1 PT Problem #1 Knowledge Deficit PT Goal 1 Goal / Goal Update *indep with HEP Target Visit 10 PT Problem 2 PT Problem #2 Pain PT Goal 1 Goal / Goal Update * pt report standing/walking tolerance of 25 minutes Target Visit 10 PT Goal 2 Goal / Goal Update * pt report pain at worst rating of 4/10 Target Visit 10 PT Problem 3 PT Problem #3 Impaired Flexibility PT Goal 1 Goal / Goal Update increase flexibility of hips, to decrease pull/ strain over lumbar spine: hamstring length with supine SLR to 55' 1* R 2* L anterior hip/quad length with prone knee flexion to 110' 3* R 4* L Target Visit 10 PT Problem 4 PT Problem #4 Impaired Functional Mobility PT Goal 1 Goal / Goal Update * 2 minute walking test distance of 300', to improve community ambulation; with or without assistive device Target Visit 10 PT Problem 5 PT Problem #5 Impaired Strength PT Goal 1 Goal / Goal Update increase strength of R and L hip abduction to 4/ 5, for improved stability of hips with walking Target Visit 10
--- NOTE | 2024-09-11 09:02 | PTOPEVAL1 ---
Assessment and note entered by Ratna Valdivia PT Evaluation Information Assessment Status Evaluation ICD-10 Condition Codes (PT) Pain in low back M54.50 Onset about 1 year ago Subjective Information chronic issues with low back pain; have had treatment for pain by pain management about 2 years ago: back injections, therapy; wanted to put implanted stimulator in back-- did not want to have surgery; no recent imaging; have pain management dr bustamantet in December. in the past 6 months have had 2 falls: outside in yard and when foot slipped getting out of bed. Activity: does not use assistive device; limited standing due to pain, then have to sit and rest Goal: lessen back pain, better balance Reported Pain Level Pain Score Self Report Additional Pain Score Comments pain range in the past week 0-6/10; R and L lumbar no radicular pain; occasional catch in L posterior hip increase pain: standing/walking 15 min, when wake up in AM decrease pain: sit and rest, heat pain, salon pads is not taking any pain meds--they do not help; sleeping is not disrupted due to back pain Assessment PT Clinical Summary Shantanu has the diagnosis of low back pain, without radicular pain. He has a history of chronic back pain & L knee arthroscopy. Self assessment with Oswestry rating of 40% limitation in activity level. He reports 15 minutes of standing/activity then have to sit and rest. With the evaluation; he has poor standing posture with trunk and hip flexion, forward rotation of R shoulder, trunk and hip; pain is increased with hip and trunk extension; decreased flexibility of bilateral hamstrings and anterior hip/quad muscles weakness of bilateral hip abduction and extension. Skilled PT services are indicated for modalities to decrease pain, therapeutic exercises to increase hip and trunk flexibility and strength with education for HEP and posture/body mechanics. Plan of Care Interventions Electrical Stimulation,Gait Training,Hot Pack/Cold Pack,Manual Therapy,Mechanical Traction,Neuro Re- education,Patient/Caregiver Education,Therapeutic Activities,Therapeutic Exercise,Ultrasound PT Services Indicated Yes Treatment Frequency and 2x/wk for 10 visits Duration These treatments will address the objective and functional deficits as defined above. The patient will be advanced safely and appropriately in order for the patient to progress towards his/her prior level of function. Additional exercises will be introduced and as well as a comprehensive home exercise program upon discharge, if needed, ?to ensure carryover of functional gains achieved in the clinic. This treatment plan has been reviewed and agreement upon by the patient.
--- NOTE | 2024-10-20 09:54 | PTOPDC ---
Assessment and note entered by Ratna Valdivia, PT Assessment Status Discharge ICD-10 Condition Codes (PT) Pain in low back M54.50 Onset about 1 year ago Subjective Information since having therapy can walk better and hamstrings more loose and not as painful; have been doing the exercises at home; want to be done with therapy and keep doing things at home. Reported Pain Level Pain Score Self Report Additional Pain Score Comments pain range in the past week: 2-4/10; low back reported walking/standing tolerance of 10 minutes but with grocery cart, can shop about 30 minutes; discussed activity/rest balance with home and yard tasks; use of back brace PRN for support with heavier tasks; Assessment PT Clinical Summary Shantanu has received a total of 10 PT sessions. Compared with the initial evaluation, he has improved in all areas: today with pain report 2-4/10 self assessment with back index rating of 28% limitation in activity level; increase flexibility of R and L hamstring, anterior hip/ quad; increase strength of R and L hip abduction; 2 minute walking test distance of 255' with pain increase to 3/10; education completed for HEP, back care with posture/body mechanics, activity/ rest balance. The goals were partially achieved. Discharge PT services. He is to continue with the HEP. Plan of Care PT Services Indicated No
== END 2024-10-20 10:40 | disposition home or self-care (01) ==
LOC: ANHPT 09:00
PROVIDERS: PCP Emergency Medicine; Visit Provider Emergency Medicine
DX: M54.50 Low back pain, unspecified (principal)
CPT/HCPCS: 97110; 97140; 97161; 97530

== ENCOUNTER 2024-11-11 08:04 | Outpatient (CLI) | payer MEDICARE, SELFPAY ==
--- OUTSIDE RECORDS SUMMARY | 2024-11-11 08:09 | XMS_ITS | Clinical Summary ---
Author Organization [facility] Address [address] [place] [id number] Phone Care Team Providers Care Cargo Broker Name Role Phone Aramis Tompkins Primary Care Provider [phone] Allergies Active Allergy Reactions Criticality Noted Date Comments Allopurinol Rash Low 03/27/2019 Diclofenac 01/07/2002 Doxycycline 11/22/2005 Peg 0602-[id number]-Nacl-Nasulf 05/11 Medications sildenafil (VIAGRA) 100 MG tablet 02/02/2012 Active indapamide (LOZOL) 2.5 MG tablet 02/02/2012 Active cholecalciferol (VITAMIN D-3) 2000 units capsule 3 weekly 06/10/2014 Active Calcium Carb-Cholecalci ferol (CALCIUM CARBONATE-VITAM IN D) 500-200 MG-UNIT per tablet 1 bid 02/18/2014 Active Febuxostat (ULORIC) 80 MG tablet 02/02/2012 Active Magnesium Oxide -Mg Supplement 400 MG capsule 1 daily 0 08/28/2018 Acti ve lisinopril (PRINIVIL,ZESTR IL) 20 MG tablet Take 20 mg by mouth 2 (two) times a day 3 01/23/2019 Active labetalol (NORMODYNE) 100 MG tablet Take 100 mg by mouth daily Active dilTIAZem CD (CARDIZEM CD) 120 MG 24 hr capsule Take 1 capsule (120 mg total) by mouth 1 (one) time each day 30 capsule 5 03/15/2022 Active pravastatin (PRAVACHOL) 40 MG tablet Take 1 tablet (40 mg total) by mouth 1 (one) time each day 30 tablet 5 03/15/2022 Active Active Problems Problem Noted Date Diagnosed Date Hypertension 02/25/2021 Anemia in chronic kidney disease 08/28/2018 Hypertensive chronic kidney disease with stage 1 through stage 4 chronic kidney disease, or unspecified chronic kidney disease 02/18/2014 Stage 3b chronic kidney disease 01/01/2012 Stiffness of joint 01/01/2012 Mixed hyperlipidemia 02/26/2008 Immunizations Immunization Administration Dates Next Due H1N1 All Forms 07/09/2009,07/09/2009 Influenza (IM) Preservative Free 03/04/2019,02/23 Influenza LAIV (Nasal) 03/18/2021 Influenza Recombinant Bari valent Injectable Preservative Free 03/04/2019 Influenza Split High Dose Pr eservative Free IM 02/20/2018,02/20/2018 Influenza TIV (IM) 03/25/2020, 0,03/12/2019,03/12,03/06/2017,03/06/2017,03/22/2015 ,03/22/2015,02/11/2014,02/11/2014,02/24,03/18/2013,02/14/2012, 2,04/24/2011,04/24/2011,04/06/2010,,03/02/2009,03/02/2009,03/26/20 08,03/26/2008,04/10/2007,04/10/2007,,04/17/2006,03/30/2005, 005 Influenza, Injectable, Quadrivalent 03/04/2020 Influenza, Quadrivalent 03/18/2021 Influenza, Unspecified 03/25/2021 Pfizer Sars-cov-2 Vaccination 09/10/2020, 021 Pneumococcal Conjugate 02/24/2000,02/24/2000 Pneumococcal Conjugate 13-Valent 10/30/2014,05/0 01/2015 Pneumococcal Polysaccharide 03/30/2005 Pneumococcal, Unspecified 03/30/2005 TD Preservative Free 03/04/2004,03/04/2004 Tdap 01/21/2009,01/21/2009 Zoster 12/29/2010,12/29/2010 Family History Medical History Relation Comments Hypertensive disorder Mother Kidney disease Mother Kidney stone Neg Hx Relation Status Comments Mother Social History Tobacco Use Types Packs/Day Years Used Date Smoking Tobacco: Former Smokeless Tobacco: Never Alcohol Use Standard Drinks/Week Comments Yes 1 (1 standard drink = 0.6 oz pur e alcohol) Sex and Gender Information Value Date Recorded Sex Assigned at Not on file Legal Sex Male 9:41 AM MST Gender Identity Not on file Sexual Orientation Not on file Last Filed Vital Signs Vital Sign Reading Time Taken Comments Blood Pressure 138/70 03/15/2022 8:34 AM CDT Pulse 72 03/15/2022 8:34 AM CDT Temperature 36.7 C (98 F) 03/15/2022 8:34 AM CDT Respiratory Rate - - Oxygen Saturation - - Inhaled Oxygen Concentration - - Weight 59 kg (130 lb) 03/15/2022 8:34 AM CDT Height 172.7 cm (5' 8 ) 03/15/2022 8:34 AM CDT Body Mass Index 19.77 03/15/2022 8:34 AM CDT Plan of Treatment Health Maintenance Due Date Last Done Comments COVID-19 Vaccine (2023-2 5 season) 2024 09/10/2020, 08/20/2020 Influenza Vaccine (Season Ended) 2025 03/25/2021, 03/18/2021, 03/25/2020, Additional history exists Pneumococcal PPSV23/PCV13 65 + Years / Low and Medium Risk Completed 10/30/2014, 10/30/2014, 03/30/2005 Insurance [employer] Care Teams Cargo Broker Relationship Specialty Start Date End Date Aramis Tompkins DO PCP - General Family Medicine 03/15/22
--- OUTSIDE RECORDS SUMMARY | 2024-11-11 08:09 | XMS_ITS | Referral Summary ---
Author Organization [facility] Address [facility] [place] [address] Care Team Providers Care Postpartum Rn Name Role Phone Tete Kay MD Primary Care Provider [phone] Allergies Active Allergy Reactions Criticality Noted Date Comments Allopurinol Rash Medium 03/27/2019 Years ago Medications indapamide (LOZOL) 2.5 mg tabletIndicatio ns:hypertension Take 2.5 mg by mouth every morning 10/29/2020 Active labetaloL (NORMODYNE,DELGADILLO DATE) 100 mg tabletIndicatio ns:hypertension Take 100 mg by mouth 2 (two) times a day 10/29/2020 Active febuxostat (Uloric) 80 mg tabletIndicatio ns:prevention of acute gout attack Take 80 mg by mouth every morning 02/02/2012 Active lisinopriL (PRINIVIL,ZESTR IL) 20 mg tabletIndicatio ns:hypertension Take 20 mg by mouth 2 (two) times a day 01/23/2019 Active simvastatin (ZOCOR) 40 mg tabletIndicatio ns:hyperlipidem ia Take 40 mg by mouth nightly 10/29/2020 Active ALPRAZolam (XANAX) 0.5 mg tablet TAKE 1 TABLET BY MOUTH NEEDED FOR ANXIETY 75 MIN BEFORE MRI AND REPEAT 30 MIN BEFORE IF NEEDED 01/05/2021 Active MAGNESIUM ORALIndications :supplement Take 1 tablet by mouth 3 (three) times a week Active cholecalciferol , vitamin D3, (VITAMIN D3 ORAL)Indication s:supplement Take 2,000 Units by mouth 3 (three) times a week Active aspirin 81 mg enteric coated tabletIndicatio ns:prevention of thrombosis Take 81 mg by mouth as needed for pain Active ibuprofen (AdviL) 200 mg tab/capIndicati ons:Pain Take 200 mg by mouth as needed for pain Active Active Problems Problem Noted Date Diagnosed Date Hypertension 02/25/2021 History of anemia 02/25/2021 Type 2 diabetes mellitus 02/25/2021 History of prostate cancer 02/25/2021 At risk for obstructive sleep apnea 02/25/2021 Bradycardia 02/25/2021 Cervical disc disorder with myelopathy of mid-cervical region 02/03/2021 Overview (02/03/2021): Added automatically from request for surgery [id number] Anemia in chronic kidney disease 08/28/2018 Hypertensive chronic kidney disease with stage 1 through stage 4 chronic kidney disease, or unspecified chronic kidney disease 02/18/2014 CKD (chronic kidney disease) stage 3, GFR 30-59 ml/min 01/01/2012 Stiffness of joint 01/01/2012 Mixed hyperlipidemia 02/26/2008 Immunizations Immunization Administration Dates Next Due H1N1 All Forms 07/09/2009 Influenza LAIV (Nasal) 03/18/2021 Influenza, Quad, Adjuvantate d, Intramuscular 03/04/2020 Influenza, Quadrivalent, Hig h Dose, Preservative Free, Intrr 03/18/2021 Influenza, Quadrivalent, Rec ombinant, Egg Free, Preservative Free, Intramuscular 03/04/2019 Influenza, Quadrivalent, Spl it, Intramuscular 03/04/2020 Influenza, Trivalent, High D ose, Split, Preservative Free, Intramuscular 02/20/2018 Influenza, Trivalent, IM (MDV) 0,03/12/2019,03/06/2017,03/22,02/11/2014,03/18/2013,02/14/2012 ,04/24/2011,04/06/2010,03/02/2009,07/2007,04/10/2007,04/17/2006, 5 Influenza, Trivalent, Preser vative Free, Intramuscular 03/04/2019 Influenza, Unspecified 03/25/2021 Pfizer SARS-CoV-2 Monovalent Vaccination (12+ Yrs) PURPLE 09/10/2020,08/20/2020 Pneumococcal Conjugate 7-Valent 02/24/2000 Pneumococcal Conjugate PCV 13 10/30/2014 Pneumococcal Polysaccharide PPV23 03/30/2005 Pneumococcal, Unspecified 03/30/2005 TD Preservative Free 03/04/2004 Tdap 01/21/2009 ZOSTER LIVE 12/29/2010 Social History Tobacco Use Types Packs/Day Years Used Date Smoking Tobacco: Former Cigarettes Q uit: 1985 Smokeless Tobacco: Never Tobacco Cessation:Counseling Given: No AUDIT-C Answer Date Recorded Q1: How often do you have a drink containing alc ohol? Monthly or less 10/21/2021 Q2: How many drinks containi ng alcohol do you have on a typical day when you are drinking? 1 or 2 10/21/2021 Q3: How often do you have si x or more drinks on one occasion? Never 10/21/2021 Sex and Gender Information Value Date Recorded Sex Assigned at Not on file Legal Sex Male 7:24 AM CDT Gender Identity Male 03/11/2021 7:52 AM CDT Sexual Orientation Not on file Last Filed Vital Signs Vital Sign Reading Time Taken Comments Blood Pressure 188/92 10/21/2021 10:25 AM CDT Pulse 77 10/21/2021 10:25 AM CDT Temperature 36.6 C (97.8 F) 03/23/2021 10:44 AM CDT Respiratory Rate 18 03/23/2021 10:44 AM CDT Oxygen Saturation 98% 03/23/2021 10:44 AM CDT Inhaled Oxygen Concentration - - Weight 59.4 kg (131 lb) 10/21/2021 10:25 AM CDT Height 170.2 cm (5' 7 ) 10/21/2021 10:25 AM CDT Body Mass Index 20.52 10/21/2021 10:25 AM CDT Plan of Treatment Not on file Medical Devices Implanted Type Area Student Life Advisor Device Identifier Shelf Expiration Date Model / Serial / Lot Arachnys 700-025 I Factor Allograft Putty Syringe Graft 2.5cc Bone - Sna - [id number] Implanted:Qty : 1 on 03/03/2021 by Chacorta Wheeler MD at [facility] Other - see comments N/A: Spine Cervical [employer] [id number] 07/25/2023-025 / NA / [id number] Norbert Spine [id number] L14 Mm X W17 Mm X H6 Mm Cervical Anterior 10 D Cage Spinal Tritanium Sterile Latex Free - Sna - [id number] Implanted:Qty : 1 on 03/03/2021 by Chacorta Wheeler MD at [facility] Other - see comments N/A: Spine Cervical [place] Spine [id number] 05/31/2022 [id number] / NA / [id number] Norbert Spine [id number] Plate 20mm Bone [place] Spine Cervical 1 Level Nonsterile Latex Free - Sna - [id number] Implanted:Qty : 1 on 03/03/2021 by Chacorta Wheeler MD at [facility] Screw N/A: Spine Cervical [place] Spine [id number] / NA / Norbert Spine [id number] Screw 16mm 4mm Bone [place] Spine Cervical Self Start Variable Angle Nonsterile - Sna - [id number] Implanted:Qty : 3 on 03/03/2021 by Chacorta Wheeler MD at [facility] Screw N/A: Spine Cervical [employer] Spine [id number] / NA / Norbert Spine [id number] zark 4.5mm 16mm Self Start Variable Angle Spine Cervical Screw - Sna - [id number] Implanted:Qty : 1 on 03/03/2021 by Chacorta Wheeler MD at [facility] Screw N/A: Spine Cervical [place] Spine [id number] DA / NA / Procedures Procedure Name Priority Date/Time Associated Diagnosis Comments EGFR Routine 03/04/2021 3:31 AM CDT HEMOGLOBIN A1C Routine 02/16/2021 2:50 PM CDT Preoperative testing from Last 3 Months or Most Recently Relevant to Health Maintenance Results * eGFR (03/04/2021 3:31 AM CDT) eGFR 37 mL/min/1.7 3 m2 [facility] Comment: Interpretive Data Reference Interval Normal >/= 90 mL/min/1.73m2 Mildly decreased* 60 - 89 mL/min/1.73m2 Mildly to moderately decreased 45 - 59 mL/min/1.73m2 Moderately to severely decreased 30 - 44 mL/min/1.73m2 Severely decreased 15 - 29 mL/min/1.73m2 Kidney Failure < 15 mL/min/1.73m2 *Relative to young adult level Estimated glomerular filtration rate is determined by the CKD-EPI equation recommended by the National Kidney Foundation (KDIGO 2012 Clinical Practice Guideline for the Evaluation and Management of Chronic Kidney Disease. Kidney Intnl Suppl Jun 2012;3:1). The CKD-EPI equation should not be used for patients with unstable renal function and has not been validated in children and those over 70. Current interpretive data was last reviewed 2020 Blood 03/04/2021 3:31 AM CDT 03/04/2021 3:52 AM CDT us Kristopher PAIGE LAB BLOOD ORDERABLES Shi painting Result [facility] [id number] [facility] Department [place] [address] * (ABNORMAL) Hemoglobin A1c (02/16/2021 2:50 PM CDT) [facility] Hgb A1C 5.9(H) 4.0 - 5.6 % [facility] Comment:Testing performed by : [facility], [address] [place] [address]., [id number] Estimated Average Glucose 123 mg/dL [facility] Comment: The ADA recommends reporting an estimated Average Glucose (eAG) with all Hemoglobin A1c results using the equation derived from a study of 507 normal and diabetic adults. Minority populations were underrepresented and children were not included. (Diabetes Care 31:8560-0270, 2008). The eAG is not equivalent to a fasting glucose. Testing performed by: [facility], [address] [place] [address]., [address] Blood 02/16/2021 2:50 PM CDT 02/16/2021 6:00 PM CDT Meño Arnold NP LAB BLOOD ORDERABLES Fin al Result Performing Organization Address City/State/ZIP Co mn Phone Number [facility] [address] [facility]. [employer] [place] [place] [address] from Last 3 Months or Most Recently Relevant to Health Maintenance Insurance [employer] MCR ADV REF AETNA [facility] ADV REF AETNA MCR ADV REF AETNA MCR ADV REF Advance Directives For more information, please contact: [phone] * Full Code (Latest Code Status on File) Date Activated Date Inactivated Comments 03/03/2021 7:57 PM 03/04/2021 5:47 PM Healthcare Agents on File Name Relationship Healthcare Agent Relationshi p Communication Caprice Burleson Spouse Health Care Agent Care Teams Postpartum Rn Relationship Specialty Start Date End Date Tete Kay MD [address] [place] [address] PCP - General Family Medicine 01/04/21
--- OUTSIDE RECORDS SUMMARY | 2024-11-11 08:09 | XMS_ITS | Encounter Summary ---
Author Organization [facility] Healthcare Address [address] [place] [address] Care Team Providers Care Assistant Winemaker Name Role Phone Tete Kay MD Primary Care Provider [phone] Encounter Details Date Type Department Care Team (Late st Contact Info) Description 01/10/2021 Telephone [facility] [address] [place] [address] Clari Syed, RT Social History Tobacco Use Types Packs/Day Years Used Date Smoking Tobacco: Former Cigarettes Q uit: 1985 Smokeless Tobacco: Never AUDIT-C Answer Date Recorded Frequency of Alcohol Consumption Not on file 01/05/2021 Q2: How many drinks containi ng alcohol do you have on a typical day when you are drinking? 1 or 2 01/05/2021 Frequency of Binge Drinking Not on file 12/23 Sex and Gender Information Value Date Recorded Sex Assigned at Not on file Legal Sex Male 7:24 AM CDT Gender Identity Male 03/11/2021 7:52 AM CDT Sexual Orientation Not on file documented as of this encounter Plan of Treatment Not on file documented as of this encounter Visit Diagnoses Not on filedocumented in this encounter Care Teams Assistant Winemaker Relationship Specialty Start Date End Date Tete Kay MD [address] [place] [address] PCP - General Family Medicine 01/04/21 documented as of this encounter
--- OUTSIDE RECORDS SUMMARY | 2024-11-11 08:09 | XMS_ITS | Clinical Summary ---
Author Organization [facility] Address [facility] [place] [address] Care Team Providers Care Carbon Coating Machine Operator Name Role Phone Tete Kay MD Primary Care Provider [phone] Allergies Active Allergy Reactions Criticality Noted Date [...] (02/03/2021): Added automatically from request for surgery [id number] Anemia in chronic kidney disease 08/28/2018 Hypertensive [...] Free 03/04/2004 Tdap 01/21/2009 ZOSTER LIVE 12/29/2010 Surgical History Surgery Date Site/Laterality Comments ROTATOR CUFF REPAIR Right CARPAL TUNNEL RELEASE HAND SURGERY Medical History Medical History Date Comments Hypertension Gout Lumbar stenosis Cervical radiculopathy CKD (chronic kidney disease) stage 3, GFR 30-59 ml/min (HCC) Prostate cancer (HCC) Family History Medical History Relation Name Comments Prostate cancer Father Hypertension Mother Anesthesia problems Neg Hx Relation Name Status Comments Father Mother Social History Tobacco Use Types Packs/Day [...] AM CDT Sexual Orientation Not on file Obstetrics History Last Filed Vital Signs Vital Sign Reading [...] 10/21/2021 10:25 AM CDT Plan of Treatment Health Maintenance Due Date Last Done Comments Albumin Creatinine Ratio, Urine 1940 Depression Screening 1940 Dilated Eye Exam 1939 Foot Exam 1939 Lipid Panel 1939 Hepatitis B Screening 11/25/1957 Well Visit 65+ 11/25/2004 Zoster Vaccine (2 of 3) 02/23/2011 12/29/2010 DTaP/Tdap/Td Vaccine (2 - Td or Tdap) 01/21/2019 01/21/2009, 03/04/2004 Hemoglobin A1C 08/19/2021 02/16/2021 Fall Risk Assessment 03/04/2022 03/04/2021 eGFR 03/04/2022 03/04/2021, 02/16/2021 Covid-19 Vaccine (2023-2 5 season) 2024 03/28/2021, 09/10/2020, 08/20/2020 Influenza Vaccine (Season Ended) 2025 03/25/2021, 03/18/2021, 03/18/2021, Additional history exists Pneumococcal vaccine 65+ Completed 015, 03/30/2005, 03/30/2005, Additional history exists Medical Devices Implanted Type Area [employer] Barista Device Identifier Shelf Expiration Date Model / Serial / Lot Cerapedics Inc 700-025 I Factor Allograft Putty Syringe Graft 2.5cc Bone - Sna - [id number] Implanted:Qty : 1 on 03/03/2021 by Chacorta Wheeler MD at [facility] Other - see comments N/A: Spine Cervical [employer] [id number] 07/25/2023 700-025 / NA / [id number] Norbert Spine [id number] Mm X W17 Mm X H6 Mm Cervical Anterior 10 D Cage Spinal Tritanium Sterile Latex Free - Sna - [id number] Implanted:Qty : 1 on 03/03/2021 by Chacorta Wheeler MD at [facility] Other - see comments N/A: Spine Cervical [place] Spine [id number] 05/31/2022 [id number] / NA / [id number] [place] Spine [id number] Plate 20mm Bone [place] Spine Cervical 1 Level Nonsterile Latex Free - Sna - [id number] Implanted:Qty : 1 on 03/03/2021 by Chacorta Wheeler MD at [facility] Screw N/A: Spine Cervical [place] Spine [id number] / NA / [employer] Spine [id number] Screw 16mm 4mm Bone [place] Spine Cervical Self Start Variable Angle Nonsterile - Sna - [id number] Implanted:Qty : 3 on 03/03/2021 by Chacorta Wheeler MD at [facility] Screw N/A: Spine Cervical [place] Spine [id number] DA / NA / [place] Spine [id number] zark 4.5mm 16mm Self Start Variable Angle Spine Cervical Screw - Sna - [id number] Implanted:Qty : 1 on 03/03/2021 by Chacorta Wheeler MD at [facility] Screw N/A: Spine Cervical [place] Spine [id number] DA / NA / Procedures Procedure Name Priority Date/Time Associated Diagnosis Comments EGFR Routine 03/04/2021 3:31 AM CDT HEMOGLOBIN A1C Routine 02/16/2021 2:50 PM CDT Preoperative testing from Last 3 Months or Most Recently Relevant to Health Maintenance Results * eGFR (03/04/2021 3:31 AM CDT) Pathologist [facility] eGFR 37 mL/min/1.7 3 m2 [facility] Comment: Interpretive Data Reference Interval Normal >/= [...] us Kristopher PAIGE LAB BLOOD ORDERABLES Shi l Result Performing Organization Address City/[facility]/ZIP Co de Phone Number [facility] [address] [employer]. [facility] [place] [address] * (ABNORMAL) Hemoglobin A1c (02/16/2021 2:50 PM CDT) Hgb A1C 5.9(H) 4.0 - 5.6 % REY HERRMANN Comment:Testing performed by : [facility], [address] [place] [address]., [id number] Estimated Average Glucose 123 mg/dL REY HERRMANN Comment: The ADA recommends reporting an estimated Average Glucose (eAG) with all Hemoglobin A1c results using the equation derived from a study of 507 normal and diabetic adults. Minority populations were underrepresented and children were not included. (Diabetes Care 31:9470-9324, 2008). The eAG is not equivalent to a fasting glucose. Testing performed by: [facility], [address] [place] [address]., [id number] Blood 02/16/2021 2:50 PM CDT 02/16/2021 6:00 PM CDT us Meño Arnold NP LAB BLOOD ORDERABLES Fin al Result Performing Organization Address [facility]/ZIP Co de Phone Number [facility] [address] [employer]. [facility] [place] [address] from Last 3 Months or Most Recently Relevant to Health Maintenance Insurance AETNA MCR ADV REF AETNA MCR ADV REF AETNA MCR ADV REF AETNA MCR ADV REF Advance Directives For more information, please contact: [phone] * Full Code (Latest Code Status on File) Date Activated Date Inactivated Comments 03/03/2021 7:57 PM 03/04/2021 5:47 PM Healthcare Agents on File Name Relationship Healthcare Agent [facility] p Communication Caprice Burleson Spouse Health Care Agent [phone] (Mobile) Care Teams Carbon Coating Machine Operator Relationship Specialty Start Date End Date Tete Kay MD [address] [place] [address] PCP - General Family Medicine 01/04/21
[2024-11-11 13:29] LABS: Hematocrit 29.5 % (42.0-52.0); Hemoglobin 9.5 g/dL (14.0-18.0); Mean Corpuscular HGB Conc 32.2 g/dl (32-36); Mean Corpuscular Hemoglobin 31.7 pg (26-34); Mean Corpuscular Volume 98.3 fl (80-100); Mean Platelet Volume 10.6 fl (7.4-10.4); Platelet Count Result 270 k/mm3 (150-375); Red Cell Distribution Width 13.4 % (11.5-14.5); White Blood Count 6.4 K/mm3 (4.5-10.0)
[2024-11-11 13:38] LABS: Parathyroid Intact 240.8 pg/mL (14.5-75.2)
[2024-11-11 13:39] LABS: Iron 125 ug/dL (49-181)
[2024-11-11 13:40] LABS: Albumin Level 4.1 g/dL (3.5-5.1); Anion Gap 11 mmol/L (4-12); Blood Urea Nitrogen 68 mg/dL (9-20); Calcium 9.2 mg/dL (8.4-10.2); Carbon Dioxide 25 mmol/L (22-30); Chloride 102 mmol/L (98-107); Estimated Glomerular Filt Rate 15; Glucose 117 mg/dL (65-110); Phosphorus 4.6 mg/dL (2.5-4.5); Potassium 4.3 mmol/L (3.4-5.0); Sodium 138 mmol/L (137-145)
[2024-11-11 13:54] LABS: Percent Iron Saturation 44 % (20-50)
[2024-11-11 14:01] LABS: Creatinine Urine 34.9 mg/dL; Total Protein Urine Random 82 mg/dL; Ur Ttl Prot Creatinine Ratio 2.35 mg/mg (0-0.20)
[2024-11-11 14:51] LABS: Folic Acid > 20.0 ng/mL (2.76->20)
== END 2024-11-11 08:05 | disposition home or self-care (01) ==
LOC: ANHGOSHLAB 08:05
PROVIDERS: PCP Emergency Medicine; Visit Provider Internal Medicine Nephrology
DX: N18.4 Chronic kidney disease, stage 4 (severe) (principal); D63.1 Anemia in chronic kidney disease; D64.9 Anemia, unspecified; E11.22 Type 2 diabetes mellitus with diabetic chronic kidney disease
CPT/HCPCS: 36415; 80069; 82570; 82607; 82728; 82746; 83540; 83550; 83970; 84156; 85027

== ENCOUNTER 2025-02-17 17:01 | Emergency (ER) | payer MEDICARE, SELFPAY ==
--- NOTE | ~2025-02-17 | XR_ITS ---
EXAMINATION: XR chest 2V 02/17/2025 17:30 INDICATION: Cough. Crackles in the right lower lung. TECHNIQUE:Frontal and lateral images of the chest were obtained. COMPARISON: 02/12/2024 FINDINGS: Heart is not enlarged. No pneumothorax. No pleural effusion. No free air in the diaphragm. There is a 2.2 cm nodular density projecting over the right lower lung and a 2.3 cm nodular density projecting over the left lower lungs. The findings may represent focal airspace disease, however, pulmonary nodules are possible. A chest CT is recommended. Small patchy opacities in the mid and lower lungs. Cervical hardware is noted. IMPRESSION: 1: There is a 2.2 cm nodular density projecting over the right lower lung and a 2.3 cm nodular density projecting over the left lower lungs. The findings may represent focal airspace disease, however, pulmonary nodules are possible. A chest CT is recommended. 2. Small opacities in the mid and lower lungs which represents atelectasis/scarring or infiltrates. Reviewed, dictated and finalized at location Q. IMPRESSION: 1: There is a 2.2 cm nodular density projecting over the right lower lung and a 2.3 cm nodular density projecting over the left lower lungs. The findings may represent focal airspace disease, however, pulmonary nodules are possible. A c hest CT is recommended. 2. Small opacities in the mid and lower lungs which represents atelectasis/scar ring or infiltrates.
--- NOTE | 2025-02-17 17:05 | ED.URI ---
HPI - URI/Sore Throat General Chief Complaint: Upper Respiratory Infection Stated Complaint: Sore Throat/exhaustion Time Seen by Provider: 02/17/25 17:15 Source: patient Mode of arrival: ambulatory Limitations: no limitations History of Present Illness HPI Narrative: Shantanu is a 84-year-old male patient presenting to the clinic today with complaints of fatigue, weakness, unsteady gait, increased urination, decreased appetite, and increase in thirst times x3 days. States that when he gets up he feels unsteady. Denies any headache, runny nose, cough, or congestion. Denies any chest pain or shortness of breath. History of diabetes, chronic kidney disease, hypertension, and hypercholesterolemia. Related Data Home Medications ?Medication ?Instructions ?Recorded ?Confirmed ?Last Taken ?Type magnesium 250 mg tablet 250 mg PO .3 times weekly 12/03/23 11/25/24 02/12/24 History aspirin 81 mg tablet,delayed 81 mg PO DAILY PRN 05/15/24 11/25/24 Unknown History release (Adult Low Dose Aspirin) Allergies Allergy/AdvReac Type Severity Reaction Status Date / Time allopurinol Allergy Unknown Skin Verified 02/17/25 17:11 Reaction diclofenac Allergy Unknown Pt doesn't Verified 02/17/25 17:11 know doxycycline Allergy Unknown hands Verified 02/17/25 17:11 probenecid Allergy Unknown Skin Verified 02/17/25 17:11 Reaction Review of Systems Review of Systems: Pertinent positives per HPI. Patient denies any fever, chills, rash, headache, visual changes, dizziness, cough, shortness of breath, chest pain, palpitations, nausea, vomiting, diarrhea, constipation, abdominal pain, or any urinary issues. [facility] Past Medical History Medical History NANDINI (acute kidney injury) Fluid overload Epistaxis r nares no bleeding site seen Gout, unspecified Gout CKD (chronic kidney disease) stage 4, GFR 15-29 ml/min Osteoarthrosis, localized, primary, involving lower leg Osteoarthrosis, localized, primary, involving hand Benign hypertension Atherosclerosis of aorta Lumbar stenosis Anemia in chronic kidney disease Diabetes mellitus Now diet controlled but required medications in the past Malignant neoplasm of prostate Mixed hyperlipidemia Surgical History Surgical History H/O cataract extraction History of appendectomy H/O laminectomy C3-C4 0913-21 History of carpal tunnel release History of repair of rotator cuff H/O arthroscopy of knee Family History Family History Mother Hypertension, Onset Age: 72 Father Malignant neoplasm of prostate, Onset Age: 76 Social History Social History Social History: Caffeine- coffee Smoking status: Former smoker Tobacco type: cigarettes Smoking end date: 06/25/85 Alcohol intake: current Drinks per week: 10 Substance use: never Substance use type: does not use Do You Feel Safe in your Home?: Yes Lack of Transportation: No Lack of Food: Never True Current Housing: I Have Housing Concerned About Future Housing: No Difficulty Paying Gas/Electric Bills: No Difficulty Paying for Meds: No Currently Unemployed: No Education: High School Diploma/GED Difficulty w/ Childcare or Family Care: No Gender identity (if verbalized by the patient): Male Spiritual care concerns: No Comments At the time of my signature, I reviewed and agree with the nursing past medical, surgical, social, and family history. There is no relevant family history pertinent to the patient complaint. Exam Narrative: General: Well-developed, thin-appearing, in no apparent distress, sitting in a wheelchair Head: Normocephalic, atraumatic Eyes: Pupils equally round and reactive to light bilaterally, EOM intact, sclera and conjunctive clear, no discharge, lids normal Ears: TMs intact and clear, ear canals clear, no drainage, grossly hearing normal. Nose: Nares patent, no discharge, no inflammation, no sinus tenderness. Mouth: Oral pharynx without lesions or masses, good dentition, MMM. Neck: Supple, trachea midline, no enlargement of anterior or posterior cervical nodes, no thyroid masses or goiter palpable. Cardio: Regular rate and rhythm, s1 and s2 normal, no murmur appreciated. Resp: Crackles heard over the right lower lobe, no rhonchi, rales, wheezing or rubs Abdomen: Soft, pliable, bowel sounds present in all quadrants, non-tender to palpation, no organomegly, no CVAT tenderness. Course Course Emergency Course: Portions of this record may have been created with voice recognition software. Level of Care: Express Care Visit Vital Signs Vital signs: Vital Signs Temperature 38.3 C H 02/17/25 17:12 Pulse Rate 86 02/17/25 17:12 Respiratory Rate 16 02/17/25 17:12 Blood Pressure 176/69 H 02/17/25 17:12 Pulse Oximetry 99 02/17/25 17:12 Temperature 38.3 C H 02/17/25 17:12 Pulse Rate 86 02/17/25 17:12 Respiratory Rate 16 02/17/25 17:12 Blood Pressure 176/69 H 02/17/25 17:12 Pulse Oximetry 99 02/17/25 17:12 Vital signs reviewed Transfer Transfered to: [facility] Transportation: Other (Private car) Transfer rationale: Weakness, st segment depression, unsteady gait, covid, possible pneumonia Accepting physician: Bill Transfer comments: Private car MDM - URI/Sore Throat MDM Narrative Medical decision making narrative: At the time of visit patient is resting comfortably on the exam table. Patient appears to be nontoxic. Complaints of fatigue, weakness, unsteady gait, increased urination, decreased appetite, and increase in thirst times x3 days. States that when he gets up he feels unsteady. Denies any headache, runny nose, cough, or congestion. Denies any chest pain or shortness of breath. History of diabetes, chronic kidney disease, hypertension, and hypercholesterolemia. Labs: COVID testing was positive in the clinic today. Blood sugar was 159. Urinalysis shows 3+ protein and trace of glucose EKG: EKG shows sinus rhythm with marked left axis deviation with minimal ST depression. Heart rates 82 beats per minute Diagnostics: Chest x-ray shows 1: There is a 2.2 cm nodular density projecting over the right lower lung and a 2.3 cm nodular density projecting over the left lower lungs. The findings may represent focal airspace disease, however, pulmonary nodules are possible. A chest CT is recommended. 2. Small opacities in the mid and lower lungs which represents atelectasis/scarring or infiltrates. Plan: Patient has COVID-19, unsteady, decreased appetite, and feeling weak. He does have minimal ST depression on the EKG which is new from his previous EKG. Possible infiltrate to the mid and lower lung zone. Recommend transfer to the ER for further evaluation. Patient would like to go to [facility]. Radial physician's loan officer assistant at [facility] and she accepts patient for transfer. Differential Diagnosis Differential diagnosis: Likely upper respiratory infection, otitis media, sinusitis, viral infection, bronchitis, influenza, pharyngitis and other (COVID, UTI, hypoglycemia, hyperglycemia) Lab Data Labs: Lab Results 02/17/25 02/17/25 02/17/25 Range/Units 17:15 17:20 17:36 POC Capillary Glucose 159 H (65-105) mg/dl POC Urine Color Yellow POC Urine Clarity Clear POC Urine pH 7.0 POC Ur Specif Adams 1.020 POC Urine Protein 3+ (Negative) POC Ur Glucose (UA) Trace (Negative) POC Urine Ketones Negative (Negative) POC Urine Blood Negative (Negative) POC Urine Nitrite Negative (Negative) POC Urine Bilirubin Negative (Negative) POC Urine Urobilinogen 0.2 POC U Leukocyte Esteras Negative (Negative) POC SARS CoV-2 Ag Positive (Negative) Imaging Data Radiologist's impression: ITS Impressions Chest X-Ray 02/17/25 17:33 IMPRESSION: 1: There is a 2.2 cm nodular density projecting over the right lower lung and a 2.3 cm nodular density projecting over the left lower lungs. The findings may represent focal airspace disease, however, pulmonary nodules are possible. A chest CT is recommended. 2. Small opacities in the mid and lower lungs which represents atelectasis/scarring or infiltrates. ECG Data EKG #1: Attestation: I personally reviewed and interpreted this ECG as follows: ECG completion date: 02/17/25 ECG completion time: 17:41 Prior ECG tracings: available for review Interpretation: EKG shows sinus rhythm with marked left axis deviation with minimal ST depression. Heart rate 82 beats per minute. Pr interval is 174 milliseconds, QRS durations 88 milliseconds, QT-QTC is 399-437 milliseconds, P-R-T axis is 16 -42 -12 Discharge Plan Discharge Clinical Impression: Weakness, Unsteady gait, COVID-19, ST segment depression Patient Disposition: Acute Care Hospital Condition: Stable Patient Language: Latvian Prescriptions: No Action magnesium 250 mg tablet 250 mg PO .3 times weekly Patient Comments: administer sunday, , and sunday aspirin [Adult Low Dose Aspirin] 81 mg tablet,delayed release (DR/EC) 81 mg PO DAILY PRN febuxostat 80 mg tablet 80 mg PO DAILY Qty: 90 1RF furosemide 40 mg tablet See Rx Instructions .ROUTE .COMPLEX Qty: 90 2RF Dose Instruction: TAKE 1 TABLET BY MOUTH EVERY DAY Rx Instructions: TAKE 1 TABLET BY MOUTH EVERY DAY simvastatin 40 mg tablet See Rx Instructions .ROUTE .COMPLEX Qty: 90 2RF Dose Instruction: TAKE 1 TABLET BY MOUTH EVERY DAY Rx Instructions: TAKE 1 TABLET BY MOUTH EVERY DAY hydralazine 50 mg tablet See Rx Instructions .ROUTE .COMPLEX Qty: 180 2RF Dose Instruction: TAKE 1 TAB BY MOUTH TWICE DAILY Rx Instructions: TAKE 1 TAB BY MOUTH TWICE DAILY labetalol 100 mg tablet See Rx Instructions .ROUTE .COMPLEX Qty: 180 2RF Dose Instruction: TAKE 1 TABLET BY MOUTH TWICE A DAY Rx Instructions: TAKE 1 TABLET BY MOUTH TWICE A DAY Follow-up/Referrals: Yayo Thomas MD [Primary Care Provider, Internal Medicine] Time of Disposition: 17:55 Quality NIHSS Nursing Documentation ED NIHSS nursing documentation: reviewed/agree
[2025-02-17 17:12] VITALS: BP 176/69; PULSE 86; RESP 16; TEMP 38.3; O2SAT 99
--- NOTE | 2025-02-17 17:19 | ECG_ITS ---
Test Date: 2025-02-17 17:41:27 Measurements Intervals [place] Rate: 82 P: 16 [place]: 174 QRS: -42 QRSD: 88 T: -12 QT: 399 QTc: 466 Interpretive Statements SINUS RHYTHM LEFT AXIS DEVIATION BORDERLINE T WAVE ABNORMALITY- INFERIOR LEADS BASELINE ARTIFACT- I, II, III, AVR, AVL, AVF, V1-V6 BORDERLINE ECG Compared to ECG 02/12/2024 20:21:20 NO SIGNIFICANT CHANGE Electronically Signed On 02-17-2025 19:32:24 CDT by Dirk Travis D.O.
[2025-02-17 17:22] LABS: EDCOVIDSCREEN Positive (Negative)
[2025-02-17 17:38] LABS: EDUAAPPEAR Clear; EDUABILI Negative (Negative); EDUABLOOD Negative (Negative); EDUACOLOR1 Yellow; EDUAGLUCOSE Trace (Negative); EDUAKETONE Negative (Negative); EDUALEUKO Negative (Negative); EDUANITRATE Negative (Negative); EDUAPH 7.0; EDUAPROTEIN 3+ (Negative); EDUASPGRAVITY 1.020; EDUAUROBILI 0.2
== END 2025-02-17 17:55 | disposition short-term general hospital (02) ==
PROVIDERS: Emergency Provider Nurse Practitioner Family; PCP Emergency Medicine
DX: U07.1 COVID-19 (principal); R53.1 Weakness; R26.81 Unsteadiness on feet; E11.22 Type 2 diabetes mellitus with diabetic chronic kidney disease; I12.9 Hypertensive chronic kidney disease with stage 1 through stage 4 chronic kidney disease, or unspecified chronic kidney disease; E78.5 Hyperlipidemia, unspecified; N18.4 Chronic kidney disease, stage 4 (severe); Z85.46 Personal history of malignant neoplasm of prostate; D63.1 Anemia in chronic kidney disease; Z87.891 Personal history of nicotine dependence
CPT/HCPCS: 71046; 81003; 82948; 87426; 93005; 99213; G0463

== ENCOUNTER 2025-02-17 18:25 | Inpatient (IN) | payer MEDICARE, SELFPAY ==
--- NOTE | ~2025-02-17 | XR_ITS ---
EXAMINATION: XR chest 1V portable DATE: 02/17/2025 20:09 INDICATION: Covid TECHNIQUE: frontal view of the chest was obtained. COMPARISON: Chest radiograph dated 02/17/2025 FINDINGS: The lungs are clear with no focal airspace opacities, pulmonary edema, pleural effusion or pneumothorax. The cardiomediastinal silhouette is normal. Moderate degenerative skeletal changes at the lower thoracic spine and at both shoulders. Status post distal right clavicle resection. IMPRESSION: 1. No acute cardiopulmonary disease. Reviewed, dictated and finalized at location A.
--- NOTE | ~2025-02-17 | XR_ITS ---
XR chest 2V 02/18/2025 11:18 Indication: Covid dyspnea Procedure: 2 view chest Comparison: 02/17/2025 Findings: Subtle bibasilar infiltrates, left greater than right, suspicious for pneumonia. No pleural effusion, edema or pneumothorax. Heart size normal. Impression: 1: Bibasilar infiltrates, suspicious for pneumonia. Reviewed, dictated and finalized at location O. Impression: 1: Bibasilar infiltrates, suspicious for pneumonia.
--- NOTE | ~2025-02-17 | CT_ITS ---
EXAMINATION: CT diagnostic chest wo con DATE: 02/18/2025 08:43 INDICATION: Lung nodules versus infiltrate on chest x-ray TECHNIQUE: Computed tomography (CT) of the chest was performed without intravenous contrast. The dose-length product was 147.62 mGy-cm. COMPARISON: Chest x-ray 12/12/2024 FINDINGS: No enlarged mediastinal or hilar lymph nodes. There are a few nonenlarged, nonspecific mediastinal lymph nodes. Heart is unenlarged. Small pericardial effusion. There are coronary artery calcifications. There are a few less than 5 mm bilateral nonobstructing renal stones. There are a few renal cysts and too small to characterize low-attenuation lesions in the kidneys. There is a 1.0 cm hyperdense lesion in the right kidney. Differential includes hemorrhagic cyst versus renal mass. A renal mass CT is recommended. Thoracic aorta is moderately calcified but is not aneurysmal. Tiny bilateral pleural effusions, slightly larger on the right. Tracheobronchial tree is patent. No pneumothorax. There is 8 mm groundglass nodule in the left upper lobe. There is a 6 mm noncalcified pulmonary nodule in the left lower lobe. There are several patchy nodular opacities scattered throughout the mid and lower lungs, largest on the left measures 2.3 cm, largest on the right measures 2.0 cm. There are a few small ret iculonodular opacities in the mid and lower lungs, greater on the right. Bones appear osteopenic. Multilevel degenerative change in the visualized spine most prominent in the lower thoracic and upper lumbar spine. Mildly displaced subacute fractures of the left anterolateral sixth, seventh and eighth ribs. IMPRESSION: 1. There are several patchy nodular opacities scattered throughout the mid and lower lungs, largest on the left measures 2.3 cm, largest on the right measures 2.0 cm. Differential includes but is not limited to inflammatory/infectious or malignant process. Correlate clinically. A follow-up chest CT in 1 to 2 weeks following treatment is recommended. 2. There is a 8 mm groundglass nodule in the left upper lobe and a 6 mm noncalcified pulmonary nodule in the left lower lobe. A follow-up chest CT in 3 months is recommended. 3. Tiny bilateral pleural effusions, larger on the right. 4. Bilateral nonobstructing renal stones. 5. There is a 1.0 cm hyperdense lesion in the right kidney. Differential includes hemorrhagic cyst versus renal mass. A renal mass CT is recommended. 6. There are a few small reticulonodular opacities in the mid and lower lungs, greater on the right. Attention on follow-up imaging. 7. Mildly displaced subacute fractures of the left anterolateral sixth, seventh and eighth ribs. Reviewed, dictated and finalized at location Q. IMPRESSION: 1. There are several patchy nodular opacities scattered throughout the mid and lower lungs, largest on the left measures 2.3 cm, largest on the right measure s 2.0 cm. Differential includes but is not limited to inflammatory/infectious o r malignant process. Correlate clinically. A follow-up chest CT in 1 to 2 weeks following treatment is recommended. 2. There is a 8 mm groundglass nodule in the left upper lobe and a 6 mm noncalc ified pulmonary nodule in the left lower lobe. A follow-up chest CT in 3 months is recommended. 3. Tiny bilateral pleural effusions, larger on the right. 4. Bilateral nonobstructing renal stones. 5. There is a 1.0 cm hyperdense lesion in the right kidney. Differential includ es hemorrhagic cyst versus renal mass. A renal mass CT is recommended. 6. There are a few small reticulonodular opacities in the mid and lower lungs, greater on the right. Attention on follow-up imaging. 7. Mildly displaced subacute fractures of the left anterolateral sixth, seventh and eighth ribs.
--- OUTSIDE RECORDS SUMMARY | 2025-02-17 18:27 | XMS_ITS | Encounter Summary ---
Author Organization [facility] Address [address] [place] [address] Care Team Providers Care Boat Motor Mechanic Name Role Phone Tete Kay MD Primary Care Provider [phone] Encounter Details Date Type Department Care Team (Late st Contact Info) Description 01/10/2021 Telephone [facility] [address] [place] [address] Clari Syed, RT Social History Tobacco Use [...] on filedocumented in this encounter Care Teams Boat Motor Mechanic Relationship Specialty Start Date End Date Tete Kay MD [address] [place] [address] PCP - General Family Medicine 01/04/21 documented as of this encounter
--- OUTSIDE RECORDS SUMMARY | 2025-02-17 18:28 | XMS_ITS | Clinical Summary ---
Author Organization [facility] Address [facility] [place] [address] Care Team Providers Care Exam Proctor Name Role Phone Tete Kay MD Primary Care Provider [phone] Allergies Active Allergy Reactions Criticality Noted Date [...] (02/03/2021): Added automatically from request for surgery [id number] Anemia in chronic kidney disease 08/28/2018 Hypertensive [...] 10:25 AM CDT Height 170.2 cm (5' 7) 10/21/2021 10:25 AM CDT Body Mass Index [...] season) 2024 03/28/2021, 09/10/2020, 08/20/2020 Influenza Vaccine (#1) 2025 , 03/18/2021, 03/18/2021, Additional history exists Pneumococcal vaccine 65+ Completed 015, 03/30/2005, 03/30/2005, Additional history exists Medical Devices Implanted Type Area Automotive Electrician Helper Device Identifier Shelf Expiration Date Model / Serial / Lot [employer] 700-025 I Factor Allograft Putty Syringe Graft 2.5cc Bone - Sna - [id number] Implanted:Qty : 1 on 03/03/2021 by Chacorta Wheeler MD at [facility] Other - see comments N/A: Spine Cervical [employer] [id number] 07/25/2023 700-025 / NA / [id number] [place] Spine [id number] L14 Mm X W17 Mm X H6 Mm Cervical Anterior 10 D Cage Spinal Tritanium Sterile Latex Free - Sna - [id number] Implanted:Qty : 1 on 03/03/2021 by Chacorta Wheeler MD at [facility] Other - see comments N/A: Spine Cervical [place] [employer] [id number] 05/31/2022 [id number] / NA / DLA01 [place] Spine [id number] Plate 20mm Bone Kinder Spine Cervical 1 Level Nonsterile Latex Free - Sna - [id number] Implanted:Qty : 1 on 03/03/2021 by Chacorta Wheeler MD at [facility] Screw N/A: Spine Cervical [place] Spine [id number] / NA / [employer]bert Spine [id number] Screw 16mm 4mm Bone Kinder Spine Cervical Self Start Variable Angle Nonsterile - Sna - [id number] Implanted:Qty : 3 on 03/03/2021 by Chacorta Wheeler MD at [facility] Screw N/A: Spine Cervical [place] [employer]ine [id number] DA / NA / [place] [employer]ine [id number] zark 4.5mm 16mm Self Start Variable Angle Spine Cervical Screw - Sna - [id number] Implanted:Qty : 1 on 03/03/2021 by Chacorta Wheeler MD at [facility] Screw N/A: Spine Cervical [employer] Spine [id number] DA / NA / Procedures Procedure Name Priority Date/Time Associated Diagnosis Comments EGFR Routine 03/04/2021 3:31 AM CDT HEMOGLOBIN A1C Routine 02/16/2021 2:50 PM CDT Preoperative testing from Last 3 Months or Most Recently Relevant to Health Maintenance Results * eGFR (03/04/2021 3:31 AM CDT) Pathologist [facility] eGFR 37 mL/min/1.7 3 m2 [facility] Comment: Interpretive Data Reference Interval Normal >/= [...] ORDERABLES Shi l Result Performing Organization Address City/[facility]/ZIP Co de Phone Number [facility] [address] [employer]. [facility] [place] [address] * (ABNORMAL) Hemoglobin A1c (02/16/2021 2:50 PM CDT) Hgb A1C 5.9(H) 4.0 - 5.6 % REY HERRMANN Comment:Testing performed by : [facility], [address] [place] [address]., [id number] Estimated Average Glucose 123 mg/dL REY HERRMANN Comment: The ADA recommends reporting an estimated Average Glucose (eAG) with all Hemoglobin A1c results using the equation derived from a study of 507 normal and diabetic adults. Minority populations were underrepresented and children were not included. (Diabetes Care 31:4863-7608, 2008). The eAG is not equivalent to a fasting glucose. Testing performed by: [facility], [address] [place] [address]., [id number] Blood 02/16/2021 2:50 PM CDT 02/16/2021 6:00 PM CDT us Meño Arnold NP LAB BLOOD ORDERABLES Fin al Result Performing Organization Address [facility]/ZIP Co de Phone Number [facility] [address] [employer]. [facility] [place] [place] [address] from Last 3 Months or Most Recently Relevant to Health Maintenance Insurance AETNA MCR ADV REF AETNA MCR ADV REF AETNA MCR ADV REF AETNA MCR ADV REF Advance Directives For more information, please contact: [phone] * Full Code (Latest Code Status on File) Date Activated Date Inactivated Comments 03/03/2021 7:57 PM 03/04/2021 5:47 PM Healthcare Agents on File Name Relationship Healthcare Agent [facility] p Communication Caprice Burleson Spouse Health Care Agent [phone] (Mobile) Care Teams Exam Proctor Relationship Specialty Start Date End Date Tete Kay MD [address] [place] [address] PCP - General Family Medicine 01/04/21
[2025-02-17 18:41] VITALS: BP 167/71; PULSE 80; RESP 16; TEMP 38.1; O2SAT 96
--- NOTE | 2025-02-17 19:58 | PC.NURSE ---
Pt presents to ED c/o increased weakness, and decreased appetite. Per pt went to urgent care earlier today and was positive for COVID19. Pt denies SOB, and HTN on monitor.
[2025-02-17 20:01] VITALS: BP 180/73; PULSE 77; RESP 14; TEMP 37.6; O2SAT 100
--- OUTSIDE RECORDS SUMMARY | 2025-02-17 20:18 | XMS_ITS | Clinical Summary ---
Author Organization [facility] Address [facility] [place] [address] Care Team Providers Care Professional Driver Name Role Phone Tete Kay MD Primary Care Provider [phone] Allergies Active Allergy Reactions Criticality Noted Date [...] (02/03/2021): Added automatically from request for surgery [id number] Anemia in chronic kidney disease 08/28/2018 Hypertensive [...] history exists Medical Devices Implanted Type [place] Device Identifier Shelf Expiration Date Model / Serial / Lot [employer] 700-025 I Factor Allograft Putty Syringe Graft 2.5cc Bone - Sna - [id number] Implanted:Qty : 1 on 03/03/2021 by Chacorta Wheeler MD at [facility] Other - see comments N/A: Spine Cervical [employer] [id number] 07/25/2023 700-025 / NA / [id number] Natalia Spine [id number] L14 Mm X W17 Mm X H6 Mm Cervical Anterior 10 D Cage Spinal Tritanium Sterile Latex Free - Sna - [id number] Implanted:Qty : 1 on 03/03/2021 by Chacorta Wheeler MD at [facility] Other - see comments N/A: Spine Cervical Natalia Spine [id number] 05/31/2022 [id number] / NA / [id number] Natalia Spine [id number] Plate 20mm Bone [place] Spine Cervical 1 Level Nonsterile Latex Free - Sna - [id number] Implanted:Qty : 1 on 03/03/2021 by Chacorta Wheeler MD at [facility] Screw N/A: Spine Cervical Natalia Spine [id number] / NA / Norbert Spine [id number] Screw 16mm 4mm Bone [place] Spine Cervical Self Start Variable Angle Nonsterile - Sna - [id number] Implanted:Qty : 3 on 03/03/2021 by Chacorta Wheeler MD at [facility] Screw N/A: Spine Cervical Natalia Spine [id number] / NA / Natalia Spine [id number] zark 4.5mm 16mm Self Start Variable Angle Spine Cervical Screw - Sna - [id number] Implanted:Qty : 1 on 03/03/2021 by Chacorta Wheeler MD at [facility] Screw N/A: Spine Cervical Norbert Spine [id number] / NA / Procedures Procedure Name Priority Date/Time Associated Diagnosis Comments EGFR Routine 03/04/2021 3:31 AM CDT HEMOGLOBIN A1C Routine 02/16/2021 2:50 PM CDT Preoperative testing from Last 3 Months or Most Recently Relevant to Health Maintenance Results * eGFR (03/04/2021 3:31 AM CDT) Pathologist [facility] eGFR 37 mL/min/1.7 3 m2 [facility] Comment: Interpretive Data Reference Interval Normal [...] ORDERABLES Shi l Result Performing Organization Address City/[facility]/ZIP Co de Phone Number [facility] [address] [address] [facility] [place] [address] * (ABNORMAL) Hemoglobin A1c (02/16/2021 2:50 PM CDT) Hgb A1C 5.9(H) 4.0 - 5.6 % REY [facility] Comment:Testing performed by : [facility], [address] [place] [address]., [id number] Estimated Average Glucose 123 mg/dL REY [facility] Comment: The ADA recommends reporting an estimated Average Glucose (eAG) with all Hemoglobin A1c results using the equation derived from a study of 507 normal and diabetic adults. Minority populations were underrepresented and children were not included. (Diabetes Care 31:9174-6778, 2008). The eAG is not equivalent to a fasting glucose. Testing performed by: [facility], [address] [place] [address]., [id number] Blood 02/16/2021 2:50 PM CDT 02/16/2021 6:00 PM CDT us Meño Arnold NP LAB BLOOD ORDERABLES Fin al Result Performing Organization Address [facility]/ZIP Co de Phone Number [facility] [address] [facility] [place] [address] from Last 3 Months or Most Recently Relevant to Health Maintenance Insurance AETNA MCR ADV REF AETNA MCR ADV REF AETNA MCR ADV REF AETNA MCR ADV REF Advance Directives For more information, please contact: [phone] * Full Code (Latest Code Status on File) Date Activated Date Inactivated Comments 03/03/2021 7:57 PM 03/04/2021 5:47 PM Healthcare Agents on File Name Relationship Healthcare Agent [facility] p Communication Caprice Burleson Spouse Health Care Agent Care Teams Professional Driver Relationship Specialty Start Date End Date Tete Kay MD [address] [place] [address] PCP - General Family Medicine 01/04/21
--- OUTSIDE RECORDS SUMMARY | 2025-02-17 20:18 | XMS_ITS | Encounter Summary ---
Author Organization [facility] Healthcare Address [address] [place] [address] Care Team Providers Care Sterile Technician Name Role Phone Teet Kay MD Primary Care Provider [phone] Encounter Details Date Type Department Care Team (Late st Contact Info) Description 01/10/2021 Telephone [facility] [address] [place] [address] Clari Syed, RT Social History Tobacco Use [...] on filedocumented in this encounter Care Teams Sterile Technician Relationship Specialty Start Date End Date Tete Kay MD [address] [place] [address] PCP - General Family Medicine 01/04/21 documented as of this encounter
[2025-02-17 20:28] LABS: Hematocrit 29.3 % (42.0-52.0); Hemoglobin 10.0 g/dL (14.0-18.0); Immature Granulocyte Percent A 0.6 % (0-0.5); Lymphocytes Absolute Auto 0.97 K/mm3 (0.9-3.2); Mean Corpuscular HGB Conc 34.1 g/dl (32-36); Mean Corpuscular Hemoglobin 31.4 pg (26-34); Mean Corpuscular Volume 92.1 fl (80-100); Nucleated Red Blood Cells Absolute Auto 0.000 K/mm3 (0.0-0.012); Nucleated Red Blood Cells Perc 0.0 % (0.0-0.2); Platelet Count Result 297 k/mm3 (150-375); Red Blood Count 3.18 M/mm3 (4.6-6.20); White Blood Count 17.7 K/mm3 (4.5-10.0)
[2025-02-17 20:45] LABS: Alanine Aminotransferase 75 U/L (6-50); Albumin Level 4.0 g/dL (3.5-5.1); Alkaline Phosphatase 116 U/L (38-126); Anion Gap 14 mmol/L (4-12); Aspartate Amino Transferase 143 U/L (17-59); Bilirubin,Total 0.7 mg/dL (0.2-1.3); Blood Urea Nitrogen 66 mg/dL (9-20); Calcium 9.5 mg/dL (8.4-10.2); Carbon Dioxide 27 mmol/L (22-30); Chloride 89 mmol/L (98-107); Estimated CRCL calculation 12 ml/min; Estimated Glomerular Filt Rate 17; Glucose 160 mg/dL (65-110); Lipase 47 U/L (23-300); Magnesium 1.7 mg/dL (1.6-2.3); Potassium 3.0 mmol/L (3.4-5.0); Sodium 130 mmol/L (137-145); Total Protein 7.7 g/dL (6.3-8.2)
[2025-02-17 21:30] LABS: Add Urine Microscopic? YES; Appearance Urine Clear (Clear); Glucose Urine UA Trace mg/dL (Negative); Leukocyte Esterase Ur Negative LEU/UL (Negative); Nitrate Urine Negative (Negative); Non Pathogenic Casts 0-2; Specific Grav Ur 1.009 (1.001-1.035)
--- NOTE | 2025-02-17 21:38 | ED.GENADULT ---
HPI - General Adult General Chief complaint: Weakness Stated complaint: weak, covid Time Seen by Provider: 02/17/25 19:46 History of Present Illness HPI narrative: Patient is an 84-year-old male who presents emergency department this evening complaining of generalized weakness and fatigue, cough, fever and URI symptoms for the past 2-3 days. Patient was seen at our urgent care and did test positive for COVID. Was sent here for further evaluation. Patient also admits that he has been having some frequent urination. No additional symptoms or concerns at this time. Related Data Home Medications ?Medication ?Instructions ?Recorded ?Confirmed ?Last Taken ?Type magnesium 250 mg tablet 250 mg PO .3 times weekly 12/03/23 11/25/24 02/12/24 History aspirin 81 mg tablet,delayed 81 mg PO DAILY PRN 05/15/24 11/25/24 Unknown History release (Adult Low Dose Aspirin) Allergies Allergy/AdvReac Type Severity Reaction Status Date / Time allopurinol Allergy Unknown Skin Verified 02/17/25 18:46 Reaction diclofenac Allergy Unknown Pt doesn't Verified 02/17/25 18:46 know doxycycline Allergy Unknown hands Verified 02/17/25 18:46 probenecid Allergy Unknown Skin Verified 02/17/25 18:46 Reaction Review of Systems Review of Systems: All systems are reviewed and are negative unless stated otherwise in the HPI. [facility] Past Medical History Medical History NANDINI (acute kidney injury) Fluid overload Epistaxis r nares no bleeding site seen Gout, unspecified Gout CKD (chronic kidney disease) stage 4, GFR 15-29 ml/min Osteoarthrosis, localized, primary, involving lower leg Osteoarthrosis, localized, primary, involving hand Benign hypertension Atherosclerosis of aorta Lumbar stenosis Anemia in chronic kidney disease Diabetes mellitus Now diet controlled but required medications in the past Malignant neoplasm of prostate Mixed hyperlipidemia Surgical History Surgical History H/O cataract extraction History of appendectomy H/O laminectomy C3-C4 History of carpal tunnel release History of repair of rotator cuff H/O arthroscopy of knee Family History Family History Mother Hypertension, Onset Age: 72 Father Malignant neoplasm of prostate, Onset Age: 76 Social History Social History Social History: Caffeine- coffee Smoking status: Former smoker Tobacco type: cigarettes Smoking end date: 06/25/85 Alcohol intake: current Drinks per week: 10 Substance use: never Substance use type: does not use Do You Feel Safe in your Home?: Yes Lack of Transportation: No Lack of Food: Never True Current Housing: I Have Housing Concerned About Future Housing: No Difficulty Paying Gas/Electric Bills: No Difficulty Paying for Meds: No Currently Unemployed: No Education: High School Diploma/GED Difficulty w/ Childcare or Family Care: No Gender identity (if verbalized by the patient): Male Spiritual care concerns: No Exam Narrative: General: Alert, awake, febrile, in no acute distress. HEENT: PERRL, no rhinorrhea, no post nasal drip, oropharynx clear. Neck: Trachea midline, no JVD, no lymphadenopathy. Cardiovascular: Regular rate and rhythm, no murmurs, rubs or gallops, no peripheral edema. Respiratory: Clear to auscultation bilaterally, no tachypnea, no wheezing, no rhonchi, no rubs, no respiratory distress. Abdomen: Soft, nontender, nondistended, no rebound, no guarding, no peritoneal signs. Musculoskeletal: No joint swelling or deformity, normal muscle tone. Skin: No rashes or petechia, no signs of infection. Psychiatric: Alert and oriented, normal behavior and judgment for situation. Neurological: Alert and oriented to person, place, and time. Follows all commands. No focal deficits, speech is clear and fluent. Course Vital Signs Vital signs: Vital Signs Temperature 100.5 F H 02/17/25 18:41 Pulse Rate 80 02/17/25 18:41 Respiratory Rate 16 02/17/25 18:41 Blood Pressure 167/71 H 02/17/25 18:41 Pulse Oximetry 96 02/17/25 18:41 Oxygen Delivery Room Air 02/17/25 18:41 Temperature 99.7 F H 02/17/25 20:01 Pulse Rate 77 02/17/25 20:01 Respiratory Rate 14 02/17/25 20:01 Blood Pressure 180/73 H 02/17/25 20:01 Pulse Oximetry 100 02/17/25 20:01 Oxygen Delivery Room Air 02/17/25 20:01 Medical Decision Making MDM Narrative Medical decision making narrative: The patient was evaluated by myself in the emergency department. History is obtained from patient who is an independent historian and physical exam was performed. External medical records were reviewed at this time. IV was established and pertinent tests were ordered. Patient was administered 1 L IV fluid bolus with normal saline. Patient had an echocardiogram last year within normal ejection fraction. Patient is also started on IV antibiotics with 1 dose of Rocephin and azithromycin to cover him for sepsis. Laboratory results obtained revealing a leukocytosis of 17.7, potassium of 3, BUN 66 and creatinine 3.39 which is around patient's baseline given history of chronic kidney disease. Patient also had transaminitis with an AST of 143 and ALT of 75. Urinalysis unremarkable. Imaging studies obtained included CXR which was independently interpreted by me revealing no acute process, which is pending final radiology interpretation. Differential diagnosis considerations include sepsis secondary to infectious process such as pneumonia/UTI, dehydration, electrolyte derangements, acute viral syndrome. Comorbidities impacting this visit include none. I have evaluated and discussed social determinants of health with the patient that could potentially impact subsequent diagnosis and treatment plans. On repeat assessment of the patient, reevaluation revealed that the patient is doing well and is in no acute distress. Patient symptoms have improved since he arrived to our emergency department. Repeat vital signs were all reviewed and noted to be stable. Differential diagnosis and treatment plan were discussed with the patient at bedside. Patient agrees with discussion and after shared medical decision making agrees with admission. All questions were answered to the patient's satisfaction. Case discussed with the on-call STUDENT AMBASSADOR Thai for hospital admission at 2145 and he accepted admission. Critical care time of 45 minutes, exclusive of separately performed procedures, necessary for treating or preventing eminent or life-threatening deterioration of patient's condition of sepsis, focused on patient care provided personally by me and time spent during initial evaluation, physical examination, ordering and performing treatments and interventions, ordering and reviewing laboratory studies, ordering and reviewing radiographic studies, re-evaluation of the patient's condition, evaluation of the patient's response to treatment, and discussion of patient case with multiple consultants. Vital Signs Vital Signs: Vital Signs Temperature 100.5 F H 02/17/25 18:41 Pulse Rate 80 02/17/25 18:41 Respiratory Rate 16 02/17/25 18:41 Blood Pressure 167/71 H 02/17/25 18:41 Pulse Oximetry 96 02/17/25 18:41 Oxygen Delivery Room Air 02/17/25 18:41 Temperature 99.7 F H 02/17/25 20:01 Pulse Rate 77 02/17/25 20:01 Respiratory Rate 14 02/17/25 20:01 Blood Pressure 180/73 H 02/17/25 20:01 Pulse Oximetry 100 02/17/25 20:01 Oxygen Delivery Room Air 02/17/25 20:01 Lab Data 02/17/25 20:15 02/17/25 20:15 Labs: Lab Results 02/17/25 02/17/25 Range/Units 20:15 21:09 WBC 17.7 H (4.5-10.0) K/mm3 RBC 3.18 L (4.6-6.20) M/mm3 Hgb 10.0 L (14.0-18.0) g/dL Hct 29.3 L (42.0-52.0) % MCV 92.1 (80-100) fl MCH 31.4 (26-34) pg MCHC 34.1 (32-36) g/dl RDW 12.0 (11.5-14.5) % Plt Count 297 (150-375) k/mm3 MPV 9.6 (7.4-10.4) fl Immature Gran % (Auto) 0.6 H (0-0.5) % Neut % (Auto) 83.5 H (45.5-73.1) % Lymph % (Auto) 5.5 L (18.3-44.2) % [place] % (Auto) 9.1 H (2.6-8.5) % Eos % (Auto) 1.0 (0-4.4) % Baso % (Auto) 0.3 (0.2-1.2) % Lymph # (Auto) 0.97 (0.9-3.2) K/mm3 [place] # (Auto) 1.6 H (0.1-0.6) K/mm3 Eos # (Auto) 0.2 (0-0.3) K/mm3 Baso # (Auto) 0.1 (0.0-0.1) K/mm3 Abs Immat Gran (auto) 0.11 H (0.00-0.031) K/mm3 Absolute Neuts (auto) 14.7 H (1.3-6.7) K/mm3 Absolute Nucleated RBC 0.000 (0.0-0.012) K/mm3 Nucleated RBC % 0.0 (0.0-0.2) % Sodium 130 L (137-145) mmol/L Potassium 3.0 L (3.4-5.0) mmol/L Chloride 89 L (98-107) mmol/L Carbon Dioxide 27 (22-30) mmol/L Anion Gap 14 H (4-12) mmol/L BUN 66 H (9-20) mg/dL Creatinine 3.39 H (0.7-1.3) mg/dL Estim Creat Clear Calc 12 ml/min Estimated GFR 17 L (59 - ) Glucose 160 H (65-110) mg/dL Lactic Acid 1.2 (0.7-2.0) mmol/L Calcium 9.5 (8.4-10.2) mg/dL Magnesium 1.7 (1.6-2.3) mg/dL Total Bilirubin 0.7 (0.2-1.3) mg/dL AST 143 H (17-59) U/L ALT 75 H (6-50) U/L Alkaline Phosphatase 116 (38-126) U/L Total Protein 7.7 (6.3-8.2) g/dL Albumin 4.0 (3.5-5.1) g/dL Lipase 47 (23-300) U/L Urine Color Yellow (Yellow) Urine Appearance Clear (Clear) Urine pH 7.0 (5.0-9.0) Ur Specific [place] 1.009 (1.001-1.035) Urine Protein 2+ H (Negative) mg/dL Urine Glucose (UA) Trace H (Negative) mg/dL Urine Ketones Negative (Negative) mg/dL Ur Blood (Man) Negative (Negative) Urine Nitrate Negative (Negative) Urine Bilirubin Negative (Negative) Urine Urobilinogen 0.2 (<2.0) mg/dL Leukocyte Esterase Rfl Negative (Negative) BRIDGET/UL Urine RBC 0-2 (0-2) /hpf Urine WBC 0-5 (0-3) /hpf Ur Squamous Epith Cells None seen (Few) /hpf Urine Bacteria None seen /hpf Urine Casts 0-2 Critical Care Time Critical Care Time Critical Care Time: Yes Total Critical Care Time: 45 (Please refer to [facility] for attestation.) Discharge Plan Discharge Clinical Impression: Pneumonia due to COVID-19 virus, Sepsis Patient Disposition: Still a Patient Condition: Improved Patient Language: Icelandic Prescriptions: No Action magnesium 250 mg tablet 250 mg PO .3 times weekly Patient Comments: administer sunday, , and sunday aspirin [Adult Low Dose Aspirin] 81 mg tablet,delayed release (DR/EC) 81 mg PO DAILY PRN febuxostat 80 mg tablet 80 mg PO DAILY Qty: 90 1RF furosemide 40 mg tablet See Rx Instructions .ROUTE .COMPLEX Qty: 90 2RF Dose Instruction: TAKE 1 TABLET BY MOUTH EVERY DAY Rx Instructions: TAKE 1 TABLET BY MOUTH EVERY DAY simvastatin 40 mg tablet See Rx Instructions .ROUTE .COMPLEX Qty: 90 2RF Dose Instruction: TAKE 1 TABLET BY MOUTH EVERY DAY Rx Instructions: TAKE 1 TABLET BY MOUTH EVERY DAY hydralazine 50 mg tablet See Rx Instructions .ROUTE .COMPLEX Qty: 180 2RF Dose Instruction: TAKE 1 TAB BY MOUTH TWICE DAILY Rx Instructions: TAKE 1 TAB BY MOUTH TWICE DAILY labetalol 100 mg tablet See Rx Instructions .ROUTE .COMPLEX Qty: 180 2RF Dose Instruction: TAKE 1 TABLET BY MOUTH TWICE A DAY Rx Instructions: TAKE 1 TABLET BY MOUTH TWICE A DAY Follow-up/Referrals: Yayo Thomas MD [Primary Care Provider, Internal Medicine] Time of Disposition: 22:14
[2025-02-17] MEDS: POTASSIUM CHLORIDE 20 MEQ PACKET (FOR LIQUID) 40 MEQ PO (21:39)
[2025-02-17] MEDS: SODIUM CHLORIDE 0.9% IV 1,000 ML 999 ML IV CONT (21:40)
[2025-02-17] MEDS: cefTRIAXone 1 GM in SODIUM CHLORIDE 0.9% IV 50 ML 100 ML IVPB (21:40)
[2025-02-17] MEDS: SODIUM CHLORIDE 0.9% IV 1,000 ML 100 ML IV CONT (22:21)
[2025-02-17 22:27] VITALS: BP 192/83; PULSE 76; RESP 17; O2SAT 100
--- NOTE | 2025-02-17 22:29 | PC.NURSE ---
Per MD Russo, stop IV bolus fluids and cont. with 0.9% @ 100ml/HR, MD made aware of elevated BP.
[2025-02-17 23:05] VITALS: BP 191/88; PULSE 78; RESP 18; O2SAT 100
[2025-02-17] MEDS: AZITHROMYCIN IV 500 MG in SODIUM CHLORIDE 0.9% IV 250 ML IVPB (23:05)
[2025-02-17 23:20] VITALS: PULSE 75
[2025-02-17] MEDS: LABETALOL HCL 100 MG TABLET PO (23:20)
--- NOTE | 2025-02-17 23:20 | P.HP_ITS ---
H&P: HPI History of Present Illness Date/Time: 02/17/25 23:20 Chief Complaint: Covid positive, generalized weakness Narrative: This is an 84-year-old male patient who was admitted to the hospital for generalized weakness, tested positive for COVID, history of hypertension and stage IV CKD as well as diet-controlled diabetes. Patient went to urgent care earlier today and had a chest x-ray with findings of 2 pulmonary nodules that could be infectious verses more concerning etiology. Radiology suggested CT scan so patient was sent to the emergency department. Mr. Burleson reports feeling unwell for approximately three days, with symptoms including tiredness, lack of appetite, and increased thirst. He denies difficulty breathing, nausea, or vomiting. While he has had no appetite, he was able to drink fluids. He occasionally experiences dizziness, especially when moving around, and uses a walker at home, which he has had for a long time but is just starting to use again. He lives with his and has two stairs out of the garage at home, noting there are many stairs to the basement but he does not use them. He has been retired for 25 years. He still drives. He tested positive for COVID-19, as confirmed by the ER. The ER physician was concerned about his weakness and recommended hospital admission overnight for observation and management. Patient has a history of diastolic congestive heart failure with lower extremity swelling (specifically, his calves) two years ago, which resolved after taking a water pill. He also has a history of stage IV CKD and his labs are at his usual baseline today. He denies any recent exacerbation of kidney issues and he sees Dr. Pena in the clinic. Home medications include labetalol, simvastatin, hydralazine, and furosemide. He had not taken any of his evening medications today. Patient noted to be very hypertensive in ER. He received his home medications before being transferred to the floor. Review of Systems Review of Systems: All systems reviewed & are unremarkable except as noted in HPI and below PMFSH Past Medical History Medical History NANDINI (acute kidney injury) Fluid overload Epistaxis r nares no bleeding site seen Gout, unspecified Gout CKD (chronic kidney disease) stage 4, GFR 15-29 ml/min Osteoarthrosis, localized, primary, involving lower leg Osteoarthrosis, localized, primary, involving hand Benign hypertension Atherosclerosis of aorta Lumbar stenosis Anemia in chronic kidney disease Diabetes mellitus Now diet controlled but required medications in the past Malignant neoplasm of prostate Mixed hyperlipidemia Surgical History Surgical History H/O cataract extraction History of appendectomy H/O laminectomy C3-C4 History of carpal tunnel release History of repair of rotator cuff H/O arthroscopy of knee Family History Family History Mother Hypertension, Onset Age: 72 Father Malignant neoplasm of prostate, Onset Age: 76 Social History Social History Social History: Caffeine- coffee Smoking packs per day: 1 Smoking cigarettes per day: 20.0 Years smoked: 40 Smoking pack-years: 40.00 Smoking status: Former smoker Tobacco type: cigarettes Second hand tobacco smoke exposure: No Additional smoking assessment comments: pt states haven't smoked in over 50 years Alcohol intake: current Drinks per week: 12 Substance use: never Substance use type: does not use Do You Feel Safe in your Home?: Yes Lack of Transportation: No Lack of Food: Never True Current Housing: I Have Housing Concerned About Future Housing: No Difficulty Paying Gas/Electric Bills: No Difficulty Paying for Meds: No Currently Unemployed: No Education: Associate Degree Difficulty w/ Childcare or Family Care: No Gender identity (if verbalized by the patient): Male Spiritual care concerns: No Meds Home Medications and Allergies Home Medications ?Medication ?Instructions ?Recorded ?Confirmed ?Type magnesium 250 mg tablet 250 mg PO .3 times weekly 11/25/24 History febuxostat 80 mg tablet 80 mg PO DAILY #90 tabs 05/2502/18/25 Rx furosemide 40 mg tablet See Rx Instructions .Route 0 07/30/24 02/18/25 Rx .COMPLEX #90 tabs simvastatin 40 mg tablet See Rx Instructions .Route 0 07/30/24 02/17/25 Rx .COMPLEX #90 tabs hydralazine 50 mg tablet See Rx Instructions .Route 0 01/19/25 02/17/25 Rx .COMPLEX #180 tabs labetalol 100 mg tablet See Rx Instructions .Route 0 01/19/25 02/17/25 Rx .COMPLEX #180 tabs Allergies Allergy/AdvReac Type Severity Reaction Status Date / Time allopurinol Allergy Unknown Skin Verified 02/18/25 00:59 Reaction diclofenac Allergy Unknown Pt doesn't Verified 02/18/25 00:59 know doxycycline Allergy Unknown hands Verified 02/18/25 00:59 probenecid Allergy Unknown Skin Verified 02/18/25 00:59 Reaction Vital Signs Vital Signs - 24 hr 02/17/25 18:41 02/17/25 20:01 02/17/25 22:27 Temperature 38.1 C H 37.6 C H Pulse Rate 80 77 76 Respiratory Rate 16 14 17 Blood Pressure 167/71 H 180/73 H 192/83 H Pulse Oximetry 96 100 100 Oxygen Delivery Room Air Room Air 02/17/25 23:05 Temperature Pulse Rate 78 Respiratory Rate 18 Blood Pressure 191/88 H Pulse Oximetry 100 Oxygen Delivery Exam Narrative: GENERAL: Well-appearing, well-nourished, and in no acute distress. HEAD: Normocephalic, atraumatic. ENT:? Mucous membranes moist. CHEST: Clear to auscultation.? No respiratory distress. HEART: Regular rate and rhythm. ? Normal peripheral pulses. ABDOMEN: Soft, nontender, nondistended. EXTREMITIES: Normal range of motion. No peripheral edema. SKIN: Warm dry normal color NEURO: Alert and oriented x3. PSYCH: Normal mood and affect H&P: Results Labs Labs: Short CBC 02/17/25 Range/Units 20:15 WBC 17.7 H (4.5-10.0) K/mm3 Hgb 10.0 L (14.0-18.0) g/dL Hct 29.3 L (42.0-52.0) % Plt Count 297 (150-375) k/mm3 BMP 02/17/25 20:15 Sodium 130 L Potassium 3.0 L Chloride 89 L Carbon Dioxide 27 BUN 66 H Creatinine 3.39 H Glucose 160 H Calcium 9.5 Liver Function 02/17/25 Range/Units 20:15 Total Bilirubin 0.7 (0.2-1.3) mg/dL AST 143 H (17-59) U/L ALT 75 H (6-50) U/L Alkaline Phosphatase 116 (38-126) U/L Albumin 4.0 (3.5-5.1) g/dL Urine 02/17/25 Range/Units 21:09 Urine Color Yellow (Yellow) Urine Appearance Clear (Clear) Urine pH 7.0 (5.0-9.0) Ur Specific [place] 1.009 (1.001-1.035) Urine Protein 2+ H (Negative) mg/dL Urine Glucose (UA) Trace H (Negative) mg/dL Pulse Oximetry SpO2 results: 97-99% on room air Attestation: I personally reviewed and interpreted this pulse oximetry as follows: Interpretation: No need for supplemental oxygenation at this time ECG Attestation: I personally reviewed and interpreted this ECG as follows: ECG completion date: 02/17/25 ECG completion time: 17:41 Prior ECG tracings: available for review Interpretation: Sinus rhythm rate of 82 VA interval 174 QRS duration 88 QTC 466 QRS axis -42 left axis deviation no STEMI Imaging Chest x-ray: Radiologist's impression: EXAMINATION: XR chest 2V 02/17/2025 17:30 INDICATION: Cough. Crackles in the right lower lung. TECHNIQUE:Frontal and lateral images of the chest were obtained. COMPARISON: 02/12/2024 FINDINGS: Heart is not enlarged. No pneumothorax. No pleural effusion. No free air in the diaphragm. There is a 2.2 cm nodular density projecting over the right lower lung and a 2.3 cm nodular density projecting over the left lower lungs. The findings may represent focal airspace disease, however, pulmonary nodules are possible. A chest CT is recommended. Small patchy opacities in the mid and lower lungs. Cervical hardware is noted. IMPRESSION: 1: There is a 2.2 cm nodular density projecting over the right lower lung and a 2.3 cm nodular density projecting over the left lower lungs. The findings may represent focal airspace disease, however, pulmonary nodules are possible. A chest CT is recommended. 2. Small opacities in the mid and lower lungs which represents atelectasis/scarring or infiltrates. Reviewed, dictated and finalized at location Q. Assessment and Plan Assessment and plan (1) COVID-19: Code(s): U07.1 - COVID-19 Status: Acute Assessment and Plan: Generalized weakness reported COVID positive on testing 3 days of illness so far with decreased oral intake IV fluids at 100 mL/hr Not hypoxic, on room air No indication for antiviral treatment or steroids at this time (2) Hyponatremia: Code(s): E87.1 - Hypo-osmolality and hyponatremia Status: Acute Assessment and Plan: Sodium 130 in ER Generalized weakness reported COVID positive on testing 3 days of illness so far with decreased oral intake IV fluids at 100 mL/hr (3) Lung nodule seen on imaging study: Code(s): R91.1 - Solitary pulmonary nodule Status: Acute Assessment and Plan: -Urgent care imaging with 2 lung nodules--CT recommended -CXR in ER does not show the same findings. -CT scan non contrast ordered after admission. (4) Hypokalemia: Code(s): E87.6 - Hypokalemia Status: Acute Assessment and Plan: Potassium 3.0 in ER, replaced with 40 mEq oral Recheck labs in the morning (5) CKD stage 4 due to type 2 diabetes mellitus: Code(s): E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; N18.4 - Chronic kidney disease, stage 4 (severe) Status: Chronic Assessment and Plan: ACHS fingerstick glucose with low-dose sliding scale insulin ordered Renal diet ordered Renal function appears to be at baseline Patient quite hypertensive after missing evening medications, improved with oral labetalol and hydralazine Gentle IV hydration 100 mL/hr (6) Essential (primary) hypertension: Code(s): I10 - Essential (primary) hypertension Status: Chronic Assessment and Plan: Patient quite hypertensive after missing evening medications, improved with oral labetalol and hydralazine Gentle IV hydration 100 mL/hr (7) Generalized weakness: Code(s): R53.1 - Weakness Status: Acute Assessment and Plan: Generalized weakness reported COVID positive on testing 3 days of illness so far with decreased oral intake IV fluids at 100 mL/hr (8) Anemia in chronic kidney disease: Qualifiers: Chronic kidney disease stage: stage 4 (GFR 15-29) Qualified Code(s): N18.4 - Chronic kidney disease, stage 4 (severe); D63.1 - Anemia in chronic kidney disease Code(s): N18.9 - Chronic kidney disease, unspecified; D63.1 - Anemia in chronic kidney disease Status: Chronic Assessment and Plan: HGB 10.0 on admit Quality VTE Prophylaxis VTE prophylaxis: pharmacologic ordered (Heparin SQ) Hospitalist [facility] Advance Care Plan I have confirmed that the patient's Advanced Care Plan is present, code status is documented, or surrogate decision maker is listed in patient medical record.: Yes Medication Reconciliation I have utilized all available resources to obtain, update and review the patients current medications (includes all prescriptions, OTC, herbals, cannabi s, and nutritional supplements).: Yes
[2025-02-17 23:30] VITALS: BP 175/76; PULSE 76; RESP 18; O2SAT 100
[2025-02-18] VITALS (13 sets, daily range): BP systolic 109–195; BP diastolic 52–84; PULSE 65–84; RESP 16–20; TEMP 36.9–38; O2SAT 95–99; BMI 20.2
--- NOTE | 2025-02-18 00:42 | ADMGEN ---
This patient, Shantanu Burleson, was admitted to 3 [facility] Surg Room 323-01. Patient/family oriented to hospital policies and general routines including ID bracelet, bed and alarms, visiting hours, pain management, procedures, bathroom and other care routines, personal items, smoking policy, room service/diet, and visiting hours. Information on how to activate the Rapid Response Team has been discussed. Patient/Family are encouraged to report perceived risks to care and to ask questions if they do not understand what they are told or what they should do.
[2025-02-18 06:24] LABS: Hemoglobin A1C 6.0 % (<5.7)
[2025-02-18 08:11] LABS: Hematocrit 27.1 % (42.0-52.0); Hemoglobin 9.3 g/dL (14.0-18.0); Immature Granulocyte Percent A 1.0 % (0-0.5); Lymphocytes Absolute Auto 0.70 K/mm3 (0.9-3.2); Mean Corpuscular HGB Conc 34.3 g/dl (32-36); Mean Corpuscular Hemoglobin 31.8 pg (26-34); Mean Corpuscular Volume 92.8 fl (80-100); Nucleated Red Blood Cells Absolute Auto 0.000 K/mm3 (0.0-0.012); Nucleated Red Blood Cells Perc 0.0 % (0.0-0.2); Platelet Count Result 267 k/mm3 (150-375); Red Blood Count 2.92 M/mm3 (4.6-6.20); White Blood Count 13.5 K/mm3 (4.5-10.0)
[2025-02-18 08:37] LABS: Alanine Aminotransferase 59 U/L (6-50); Albumin Level 3.3 g/dL (3.5-5.1); Alkaline Phosphatase 105 U/L (38-126); Anion Gap 8 mmol/L (4-12); Aspartate Amino Transferase 83 U/L (17-59); Bilirubin,Total 0.4 mg/dL (0.2-1.3); Blood Urea Nitrogen 60 mg/dL (9-20); Calcium 8.9 mg/dL (8.4-10.2); Carbon Dioxide 26 mmol/L (22-30); Chloride 97 mmol/L (98-107); Estimated CRCL calculation 14 ml/min; Estimated Glomerular Filt Rate 21; Glucose 160 mg/dL (65-110); Potassium 3.3 mmol/L (3.4-5.0); Sodium 131 mmol/L (137-145); Total Protein 6.6 g/dL (6.3-8.2)
[2025-02-18] MEDS: LABETALOL HCL 100 MG TABLET PO ×2 (08:57→21:06)
[2025-02-18] MEDS: FEBUXOSTAT 40 MG TABLET 80 MG PO (08:57)
[2025-02-18] MEDS: SIMVASTATIN 20 MG TABLET 40 MG PO (08:57)
--- NOTE | 2025-02-18 13:19 | P.PNIM_ITS ---
Progress Note: A&P Assessment and Plan (1) COVID-19: Code(s): U07.1 - COVID-19 Status: Acute Assessment and Plan: * Generalized weakness reported * COVID positive on testing * Continue supportive care with IVF, supplemental oxygen as needed and Start Remdesivir in the setting of findings of COVID PNA. (2) Pneumonia: Code(s): J18.9 - Pneumonia, unspecified organism Status: Acute Assessment and Plan: * Secondary to #1 * As evidenced by CT scan and CXR and independently reviewed by this provider. * Start Azithromycin and Rocephin. * CT recommends that there be rescan in 2 weeks based on findings. (3) Hyponatremia: Code(s): E87.1 - Hypo-osmolality and hyponatremia Status: Acute Assessment and Plan: * Sodium 131 on repeat today. * trend metabolic panel. * IV fluids at 100 mL/hr (4) Lung nodule seen on imaging study: Code(s): R91.1 - Solitary pulmonary nodule Status: Acute Assessment and Plan: * As noted per CT scan and independently reviewed by this provider. * Pt to have follow up CT scan in two weeks. (5) Hypokalemia: Code(s): E87.6 - Hypokalemia Status: Acute Assessment and Plan: * Trend labs. * Additional 40 mEq KCL ordered for today with K+ of 3.1 today. (6) CKD stage 4 due to type 2 diabetes mellitus: Code(s): E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; N18.4 - Chronic kidney disease, stage 4 (severe) Status: Chronic Assessment and Plan: * ACHS fingerstick glucose with low-dose sliding scale insulin ordered. * Renal diet ordered * Hypoglycemic protocol ordered. (7) Essential (primary) hypertension: Code(s): I10 - Essential (primary) hypertension Status: Chronic Assessment and Plan: * Improving HTN. * Trend and monitor VS. (8) Generalized weakness: Code(s): R53.1 - Weakness Status: Acute Assessment and Plan: * COVID positive on testing (9) Anemia in chronic kidney disease: Qualifiers: Chronic kidney disease stage: stage 4 (GFR 15-29) Qualified Code(s): N18.4 - Chronic kidney disease, stage 4 (severe); D63.1 - Anemia in chronic kidney disease Code(s): N18.9 - Chronic kidney disease, unspecified; D63.1 - Anemia in chronic kidney disease Status: Chronic Assessment and Plan: * Hgb stable. Time Spent With Patient Time with patient: 15 - 25 minutes Subjective Date/time seen: 02/18/25 13:19 Interval history: This pleasant male pt was examined at the bedside and is noted to have rales on exam of lungs. He reports that he feels well and is just tired and feels a bit weak. He is not requiring supplemental oxygen at this time. He has no new complaints or symptoms. Stat 2 view CXR was obtained and it shows a bilateral basilar PNA, that was not found on previous Xray. Pt started on IV abx and on Remdesivir, and will stay today. Potential for D/C tomorrow if doing well. CT chest today also show several patchy nodular opacities in mid and lower lungs. Etiology infectious/inflammatory or malignant. Follow up chest CT in 1-2 weeks. Mildly displaced subacute fractures of the left anterolateral 6th, 7th and 8th ribs present. Review of Systems Review of Systems: All systems reviewed & are unremarkable except as noted in HPI and below Exam Narrative: GENERAL: Well-appearing, well-nourished, and in no acute distress. HEAD: Normocephalic, atraumatic. ENT:? Mucous membranes moist. CHEST: Coarseness in bilateral bases.? No respiratory distress. HEART: Regular rate and rhythm. ? Normal peripheral pulses. ABDOMEN: Soft, nontender, nondistended. EXTREMITIES: Normal range of motion. No peripheral edema. SKIN: Warm dry normal color NEURO: Alert and oriented x3. PSYCH: Normal mood and affect Objective Data Vital Signs Vital Signs: Vital Signs - 24 hr 02/17/25 18:41 02/17/25 20:01 02/17/25 22:27 Temperature 100.5 F H 99.7 F H Pulse Rate 80 77 76 Respiratory Rate 16 14 17 Blood Pressure 167/71 H 180/73 H 192/83 H Pulse Oximetry 96 100 100 Oxygen Delivery Room Air Room Air 02/17/25 23:05 02/17/25 23:20 02/17/25 23:30 Temperature Pulse Rate 78 75 76 Respiratory Rate 18 18 Blood Pressure 191/88 H 175/76 H Pulse Oximetry 100 100 Oxygen Delivery 02/18/25 00:20 02/18/25 01:03 02/18/25 04:00 Temperature 98.4 F 98.9 F Pulse Rate 65 69 76 Respiratory Rate 18 20 16 Blood Pressure 136/63 109/52 L 151/62 H Pulse Oximetry 99 97 95 Oxygen Delivery 02/18/25 07:41 02/18/25 08:00 02/18/25 08:57 Temperature Pulse Rate 78 79 79 Respiratory Rate 18 Blood Pressure 189/84 H Pulse Oximetry 98 98 Oxygen Delivery Room Air 02/18/25 12:00 Temperature Pulse Rate 75 Respiratory Rate 16 Blood Pressure 171/65 H Pulse Oximetry 97 Oxygen Delivery Intake/Output Intake/Output: Intake & Output 02/15/25 02/16/25 02/17/25 02/18/25 23:59 23:59 23:59 23:59 Intake Total 450 240 Output Total 600 Balance 450 -360 Meds/Results Medications: Active Medications Generic Name Dose Route Start Last Admin Trade Name Freq PRN Reason Stop Dose Admin Dextrose 12.5 gm 02/18/25 03:05 Dextrose 50% 25 Gm/50 Ml Syringe IV PUSH PRN PRN Hypoglycemia Protocol Febuxostat 80 mg 02/18/25 09:00 02/18/25 08:57 Febuxostat 40 Mg Tablet PO 80 mg DAILY OLENA Administration Glucagon 1 mg 02/18/25 03:05 Glucagon For Inj 1 Mg Vial IM PRN PRN Hypoglycemia Protocol Glucose 15 gm 02/18/25 03:05 Glucose Oral Gel 15 Gm Of Glucse In 37.5 Gm Tube PO PRN PRN Hypoglycemia Protocol Heparin Sodium (Porcine) 5,000 units 02/18/25 09:00 02/18/25 08:55 Heparin Sodium 5,000 Units/Ml Vial SUB-Q 5,000 units Q12HR OLENA Administration Hydralazine HCl 50 mg 02/17/25 23:00 02/18/25 08:57 Hydralazine Hcl 50 Mg Tablet PO 50 mg Q12HR OLENA Administration Dextrose 1,000 mls @ 100 mls/hr 02/18/25 03:05 Dextrose 5% 1,000 Ml IVPB PRN PRN Hypoglycemia Protocol Ceftriaxone Sodium 1 gm/ 50 mls @ 100 mls/hr 02/18/25 21:00 Sodium Chloride IVPB Q24H OLENA Azithromycin 500 mg/ Sodium 250 mls @ 250 mls/hr 02/18/25 13:15 Chloride IVPB Q24H OLENA Remdesivir 200 mg in 250 mls @ 250 mls/hr 02/18/25 13:12 IVPB 02/18/25 14:11 ONCE ONE Remdesivir 100 mg in 250 mls @ 250 mls/hr 02/19/25 13:15 IVPB 02/22/25 14:14 Q24H OLENA Insulin Aspart 2 - 5 units 02/18/25 08:00 02/18/25 11:50 Insulin Aspart (*Bkc) 100 Units/Ml SUB-Q Not Given TIDWM [facility] Protocol Labetalol HCl 100 mg 02/17/25 23:15 02/18/25 08:57 Labetalol Hcl 100 Mg Tablet PO 100 mg Q12HR OLENA Administration Simvastatin 40 mg 02/18/25 09:00 02/18/25 08:57 Simvastatin 20 Mg Tablet PO 40 mg QAM OLENA Administration Radiology Results: ITS Impressions Chest CT 02/18/25 09:14 IMPRESSION: 1. There are several patchy nodular opacities scattered throughout the mid and lower lungs, largest on the left measures 2.3 cm, largest on the right measures 2.0 cm. Differential includes but is not limited to inflammatory/infectious or malignant process. Correlate clinically. A follow-up chest CT in 1 to 2 weeks following treatment is recommended. 2. There is a 8 mm groundglass nodule in the left upper lobe and a 6 mm noncalcified pulmonary nodule in the left lower lobe. A follow-up chest CT in 3 months is recommended. 3. Tiny bilateral pleural effusions, larger on the right. 4. Bilateral nonobstructing renal stones. 5. There is a 1.0 cm hyperdense lesion in the right kidney. Differential includes hemorrhagic cyst versus renal mass. A renal mass CT is recommended. 6. There are a few small reticulonodular opacities in the mid and lower lungs, greater on the right. Attention on follow-up imaging. 7. Mildly displaced subacute fractures of the left anterolateral sixth, seventh and eighth ribs. Chest X-Ray 02/18/25 11:25 Impression: 1: Bibasilar infiltrates, suspicious for pneumonia. Labs Labs: Laboratory Results - last 24 hr 02/17/25 02/17/25 02/17/25 20:13 20:15 21:09 WBC 17.7 H RBC 3.18 L Hgb 10.0 L Hct 29.3 L MCV 92.1 MCH 31.4 MCHC 34.1 RDW 12.0 Plt Count 297 MPV 9.6 Immature Gran % (Auto) 0.6 H Neut % (Auto) 83.5 H Lymph % (Auto) 5.5 L [place] % (Auto) 9.1 H Eos % (Auto) 1.0 Baso % (Auto) 0.3 Lymph # (Auto) 0.97 [place] # (Auto) 1.6 H Eos # (Auto) 0.2 Baso # (Auto) 0.1 Abs Immat Gran (auto) 0.11 H Absolute Neuts (auto) 14.7 H Absolute Nucleated RBC 0.000 Nucleated RBC % 0.0 Sodium 130 L Potassium 3.0 L Chloride 89 L Carbon Dioxide 27 Anion Gap 14 H BUN 66 H Creatinine 3.39 H Estim Creat Clear Calc 12 Estimated GFR 17 L Glucose 160 H POC Capillary Glucose Hemoglobin A1c 6.0 H Lactic Acid 1.2 Calcium 9.5 Magnesium 1.7 Total Bilirubin 0.7 AST 143 H ALT 75 H Alkaline Phosphatase 116 Total Protein 7.7 Albumin 4.0 Lipase 47 Urine Color Yellow Urine Appearance Clear Urine pH 7.0 Ur Specific [place] 1.009 Urine Protein 2+ H Urine Glucose (UA) Trace H Urine Ketones Negative Ur Blood (Man) Negative Urine Nitrate Negative Urine Bilirubin Negative Urine Urobilinogen 0.2 Leukocyte Esterase Rfl Negative Urine RBC 0-2 Urine WBC 0-5 Ur Squamous Epith Cells None seen Urine Bacteria None seen Urine Casts 0-2 02/18/25 02/18/25 02/18/25 07:31 08:06 11:42 WBC 13.5 H RBC 2.92 L Hgb 9.3 L Hct 27.1 L MCV 92.8 MCH 31.8 MCHC 34.3 RDW 12.1 Plt Count 267 MPV 9.1 Immature Gran % (Auto) 1.0 H Neut % (Auto) 81.1 H Lymph % (Auto) 5.2 L [place] % (Auto) 8.2 Eos % (Auto) 4.2 Baso % (Auto) 0.3 Lymph # (Auto) 0.70 L [place] # (Auto) 1.1 H Eos # (Auto) 0.6 H Baso # (Auto) 0.0 Abs Immat Gran (auto) 0.13 H Absolute Neuts (auto) 11.0 H Absolute Nucleated RBC 0.000 Nucleated RBC % 0.0 Sodium 131 L Potassium 3.3 L Chloride 97 L Carbon Dioxide 26 Anion Gap 8 BUN 60 H Creatinine 2.86 H Estim Creat Clear Calc 14 Estimated GFR 21 L Glucose 160 H POC Capillary Glucose 129 H 164 H Hemoglobin A1c Lactic Acid Calcium 8.9 Magnesium Total Bilirubin 0.4 AST 83 H ALT 59 H Alkaline Phosphatase 105 Total Protein 6.6 Albumin 3.3 L Lipase Urine Color Urine Appearance Urine pH Ur Specific [place] Urine Protein Urine Glucose (UA) Urine Ketones Ur Blood (Man) Urine Nitrate Urine Bilirubin Urine Urobilinogen Leukocyte Esterase Rfl Urine RBC Urine WBC Ur Squamous Epith Cells Urine Bacteria Urine Casts Quality VTE Prophylaxis VTE prophylaxis: pharmacologic ordered
[2025-02-18] MEDS: POTASSIUM CHLORIDE 20 MEQ PACKET (FOR LIQUID) 40 MEQ PO (14:00)
[2025-02-18] MEDS: SODIUM CHLORIDE 0.9% IV 1,000 ML 100 ML IV CONT (14:00)
[2025-02-18] MEDS: REMDESIVIR 200 MG/NS 250 ML 200 MG/250 ML BAG 250 MG IVPB (14:12)
--- NOTE | 2025-02-18 14:23 | PCPTNOTE ---
Attempted PT evaluation, pt refused stating every time he closes his eyes to take a nap someone is waking him up. Nursing aware Will follow.
[2025-02-18] MEDS: ACETAMINOPHEN 325 MG TABLET 650 MG PO (17:00)
[2025-02-18] MEDS: AZITHROMYCIN IV 500 MG in SODIUM CHLORIDE 0.9% IV 250 ML IVPB (21:05)
[2025-02-18] MEDS: cefTRIAXone 1 GM in SODIUM CHLORIDE 0.9% IV 50 ML 100 ML IVPB (22:30)
[2025-02-19] VITALS (9 sets, daily range): BP systolic 124–190; BP diastolic 59–79; PULSE 72–85; RESP 14–20; TEMP 36.3–36.9; O2SAT 96–100
[2025-02-19] MEDS: SODIUM CHLORIDE 0.9% IV 1,000 ML 100 ML IV CONT ×3 (00:18→20:08)
[2025-02-19 06:39] LABS: Hematocrit 25.8 % (42.0-52.0); Hemoglobin 8.7 g/dL (14.0-18.0); Immature Granulocyte Percent A 0.6 % (0-0.5); Lymphocytes Absolute Auto 0.79 K/mm3 (0.9-3.2); Mean Corpuscular HGB Conc 33.7 g/dl (32-36); Mean Corpuscular Hemoglobin 31.2 pg (26-34); Mean Corpuscular Volume 92.5 fl (80-100); Nucleated Red Blood Cells Absolute Auto 0.000 K/mm3 (0.0-0.012); Nucleated Red Blood Cells Perc 0.0 % (0.0-0.2); Platelet Count Result 291 k/mm3 (150-375); Red Blood Count 2.79 M/mm3 (4.6-6.20); White Blood Count 11.1 K/mm3 (4.5-10.0)
[2025-02-19 07:04] LABS: Alanine Aminotransferase 130 U/L (6-50); Albumin Level 2.9 g/dL (3.5-5.1); Alkaline Phosphatase 140 U/L (38-126); Anion Gap 7 mmol/L (4-12); Aspartate Amino Transferase 213 U/L (17-59); Bilirubin,Total 0.3 mg/dL (0.2-1.3); Blood Urea Nitrogen 55 mg/dL (9-20); Calcium 8.6 mg/dL (8.4-10.2); Carbon Dioxide 23 mmol/L (22-30); Chloride 101 mmol/L (98-107); Estimated CRCL calculation 16 ml/min; Estimated Glomerular Filt Rate 26; Glucose 127 mg/dL (65-110); Magnesium 1.6 mg/dL (1.6-2.3); Potassium 3.5 mmol/L (3.4-5.0); Sodium 131 mmol/L (137-145); Total Protein 5.7 g/dL (6.3-8.2)
[2025-02-19] MEDS: FEBUXOSTAT 40 MG TABLET 80 MG PO (08:58)
[2025-02-19] MEDS: LABETALOL HCL 100 MG TABLET PO ×2 (08:58→20:07)
[2025-02-19] MEDS: SIMVASTATIN 20 MG TABLET 40 MG PO (08:58)
[2025-02-19] MEDS: REMDESIVIR 100 MG/NS 250 ML 100 MG/250 ML BAG 250 MG IVPB (10:54)
[2025-02-19 16:23] LABS: Urea Random Urine 371 MG/DL
--- NOTE | 2025-02-19 16:26 | P.PNIM_ITS ---
Progress Note: A&P Assessment and Plan (1) COVID-19: Code(s): U07.1 - COVID-19 Status: Acute Assessment and Plan: Present was done as weakness, sore throat, myalgia and occasional cough COVID tested positive Discontinue IV fluid, patient in room air Continue remdesivir for 4 days (2) Pneumonia: Code(s): J18.9 - Pneumonia, unspecified organism Status: Acute Assessment and Plan: Likely secondary to COVID pneumonia Continue azithromycin for 3 days and Rocephin for 5 days Follow-up chest CT in 2 weeks (3) Hyponatremia: Code(s): E87.1 - Hypo-osmolality and hyponatremia Status: Acute Assessment and Plan: Likely secondary to poor oral intake On presentation sodium was 130, today 131 Encourage oral intake Daily BMP (4) Lung nodule seen on imaging study: Code(s): R91.1 - Solitary pulmonary nodule Status: Acute Assessment and Plan: * As noted per CT scan and independently reviewed by this provider. * Pt to have follow up CT scan in two weeks. (5) Hypokalemia: Code(s): E87.6 - Hypokalemia Status: Acute Assessment and Plan: Replaced and Resolved (6) CKD stage 4 due to type 2 diabetes mellitus: Code(s): E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; N18.4 - Chronic kidney disease, stage 4 (severe) Status: Chronic Assessment and Plan: A1c 8/2 in 12/17 6% POCT, sliding scale, hypoglycemia improved Diabetic diet (7) Essential (primary) hypertension: Code(s): I10 - Essential (primary) hypertension Status: Chronic Assessment and Plan: On admission, BP 176/60 At home patient takes labetalol and hydralazine Hydralazine increased from 50 mg b.i.d. to t.i.d. BP goal less than 140/80 Can not add ACEI/ARB due to NANDINI Avoid nephro toxic agents including contrast/NSAID (8) Generalized weakness: Code(s): R53.1 - Weakness Status: Acute Assessment and Plan: Likely secondary to acute illness he feels better now (9) Anemia in chronic kidney disease: Qualifiers: Chronic kidney disease stage: stage 4 (GFR 15-29) Qualified Code(s): N18.4 - Chronic kidney disease, stage 4 (severe); D63.1 - Anemia in chronic kidney disease Code(s): N18.9 - Chronic kidney disease, unspecified; D63.1 - Anemia in chronic kidney disease Status: Chronic Assessment and Plan: On admission, hemoglobin 10.0 and today hemoglobin 8.7 Follow iron study Could be most likely secondary to anemia of chronic diseases kidney Avoid nephrotoxic agent Encourage oral intake and control blood pressure Subjective Date/time seen: 02/19/25 16:26 Interval history: Shantanu is doing okay. His appetite is better. He still complains of sore throat but myalgia is better. He denies cough/shortness of breath/chest pain. No abdominal pain or diarrhea Objective Data Vital Signs Vital Signs: Vital Signs - 24 hr 02/18/25 16:50 02/18/25 17:00 02/18/25 17:56 Temperature 38.0 C H 38.0 C H 37.5 C Pulse Rate 80 Respiratory Rate 16 Blood Pressure 195/74 H Pulse Oximetry 98 Oxygen Delivery 02/18/25 18:26 02/18/25 21:15 02/18/25 23:15 Temperature 37.0 C Pulse Rate 84 Respiratory Rate 18 Blood Pressure 132/54 L 162/73 H Pulse Oximetry 96 96 Oxygen Delivery Room Air 02/19/25 00:00 02/19/25 05:15 02/19/25 05:24 Temperature 36.9 C Pulse Rate 80 81 82 Respiratory Rate 20 16 Blood Pressure 143/66 H 183/79 H 164/72 H Pulse Oximetry 96 96 Oxygen Delivery 02/19/25 08:00 02/19/25 09:36 02/19/25 12:00 Temperature 36.8 C 36.3 C L Pulse Rate 83 74 Respiratory Rate 16 16 Blood Pressure 189/78 H 164/75 H Pulse Oximetry 100 100 Oxygen Delivery Room Air 02/19/25 14:00 02/19/25 16:00 Temperature 36.3 C L Pulse Rate 79 Respiratory Rate 16 Blood Pressure 150/72 H Pulse Oximetry 97 Oxygen Delivery Room Air Intake/Output Intake/Output: Intake & Output 02/16/25 02/17/25 02/18/25 02/19/25 23:59 23:59 23:59 23:59 Intake Total 450 1280 3140 Output Total 920 1030 Balance 254 105 1369 Meds/Results Medications: Active Medications Generic Name Dose Route Start Last Admin Trade Name Lexq PRN Reason Stop Dose Admin Acetaminophen 650 mg 02/18/25 16:54 02/18/25 17:00 Acetaminophen 325 Mg Tablet PO 650 mg Q6H PRN Administration Mild Pain (1-3) or Fever Dextrose 12.5 gm 02/18/25 03:05 Dextrose 50% 25 Gm/50 Ml Syringe IV PUSH PRN PRN Hypoglycemia Protocol Febuxostat 80 mg 02/18/25 09:00 02/19/25 08:58 Febuxostat 40 Mg Tablet PO 80 mg DAILY OLENA Administration Glucagon 1 mg 02/18/25 03:05 Glucagon For Inj 1 Mg Vial IM PRN PRN Hypoglycemia Protocol Glucose 15 gm 02/18/25 03:05 Glucose Oral Gel 15 Gm Of Glucse In 37.5 Gm Tube PO PRN PRN Hypoglycemia Protocol Heparin Sodium (Porcine) 5,000 units 02/18/25 09:00 02/19/25 08:58 Heparin Sodium 5,000 Units/Ml Vial SUB-Q 5,000 units Q12HR OLENA Administration Hydralazine HCl 50 mg 02/19/25 13:00 02/19/25 13:38 Hydralazine Hcl 50 Mg Tablet PO 50 mg TID OLENA Administration Dextrose 1,000 mls @ 100 mls/hr 02/18/25 03:05 Dextrose 5% 1,000 Ml IVPB PRN PRN Hypoglycemia Protocol Ceftriaxone Sodium 1 gm/ 50 mls @ 100 mls/hr 02/18/25 21:00 02/18/25 22:30 Sodium Chloride IVPB 100 mls/hr Q24H OLENA Administration Azithromycin 500 mg/ Sodium 250 mls @ 250 mls/hr 02/18/25 21:00 02/18/25 21:05 Chloride IVPB 250 mls/hr Q24H OLENA Administration Remdesivir 100 mg in 250 mls @ 250 mls/hr 02/19/25 10:00 02/19/25 10:54 IVPB 02/22/25 10:59 250 mls/hr Q24H OLENA Administration Sodium Chloride 1,000 mls @ 100 mls/hr 02/18/25 13:40 02/19/25 15:42 Normal Saline Iv IV CONT 100 mls/hr .Q10H OLENA Administration Insulin Aspart 2 - 5 units 02/18/25 08:00 02/19/25 11:55 Insulin Aspart (*Bkc) 100 Units/Ml SUB-Q Not Given TID[facility] Protocol Labetalol HCl 100 mg 02/17/25 23:15 02/19/25 08:58 Labetalol Hcl 100 Mg Tablet PO 100 mg Q12HR OLENA Administration Simvastatin 40 mg 02/18/25 09:00 02/19/25 08:58 Simvastatin 20 Mg Tablet PO 40 mg QAM OLENA Administration Radiology Results: ITS Impressions Chest CT 02/18/25 09:14 IMPRESSION: 1. There are several patchy nodular opacities scattered throughout the mid and lower lungs, largest on the left measures 2.3 cm, largest on the right measures 2.0 cm. Differential includes but is not limited to inflammatory/infectious or malignant process. Correlate clinically. A follow-up chest CT in 1 to 2 weeks following treatment is recommended. 2. There is a 8 mm groundglass nodule in the left upper lobe and a 6 mm noncalcified pulmonary nodule in the left lower lobe. A follow-up chest CT in 3 months is recommended. 3. Tiny bilateral pleural effusions, larger on the right. 4. Bilateral nonobstructing renal stones. 5. There is a 1.0 cm hyperdense lesion in the right kidney. Differential inclu susy hemorrhagic cyst versus renal mass. A renal mass CT is recommended. 6. There are a few small reticulonodular opacities in the mid and lower lungs, greater on the right. Attention on follow-up imaging. 7. Mildly displaced subacute fractures of the left anterolateral sixth, seventh and eighth ribs. Chest X-Ray 02/18/25 11:25 Impression: 1: Bibasilar infiltrates, suspicious for pneumonia. Labs Labs: Laboratory Results - last 24 hr 02/18/25 02/19/25 02/19/25 16:49 06:18 07:38 WBC 11.1 H RBC 2.79 L Hgb 8.7 L Hct 25.8 L MCV 92.5 MCH 31.2 MCHC 33.7 RDW 12.1 Plt Count 291 MPV 9.6 Immature Gran % (Auto) 0.6 H Neut % (Auto) 75.8 H Lymph % (Auto) 7.1 L [place] % (Auto) 10.4 H Eos % (Auto) 5.7 H Baso % (Auto) 0.4 Lymph # (Auto) 0.79 L [place] # (Auto) 1.2 H Eos # (Auto) 0.6 H Baso # (Auto) 0.0 Abs Immat Gran (auto) 0.07 H Absolute Neuts (auto) 8.4 H Absolute Nucleated RBC 0.000 Nucleated RBC % 0.0 Sodium 131 L Potassium 3.5 Chloride 101 Carbon Dioxide 23 Anion Gap 7 BUN 55 H Creatinine 2.37 H Estim Creat Clear Calc 16 Estimated GFR 26 L Glucose 127 H POC Capillary Glucose 161 H 143 H Calcium 8.6 Magnesium 1.6 Total Bilirubin 0.3 AST 213 H ALT 130 H Alkaline Phosphatase 140 H Total Protein 5.7 L Albumin 2.9 L Ur Random Urea 02/19/25 02/19/25 11:20 15:57 WBC RBC Hgb Hct MCV MCH MCHC RDW Plt Count MPV Immature Gran % (Auto) Neut % (Auto) Lymph % (Auto) [place] % (Auto) Eos % (Auto) Baso % (Auto) Lymph # (Auto) [place] # (Auto) Eos # (Auto) Baso # (Auto) Abs Immat Gran (auto) Absolute Neuts (auto) Absolute Nucleated RBC Nucleated RBC % Sodium Potassium Chloride Carbon Dioxide Anion Gap BUN Creatinine Estim Creat Clear Calc Estimated GFR Glucose POC Capillary Glucose 150 H Calcium Magnesium Total Bilirubin AST ALT Alkaline Phosphatase Total Protein Albumin Ur Random Urea 371 Quality VTE Prophylaxis VTE prophylaxis: pharmacologic ordered (Heparin)
[2025-02-19 17:25] LABS: Iron 13 ug/dL (49-181)
[2025-02-19 17:35] LABS: Percent Iron Saturation 7 % (20-50)
[2025-02-19 18:06] LABS: Ferritin 128.00 ng/mL (11.1-264)
[2025-02-19] MEDS: cefTRIAXone 1 GM in SODIUM CHLORIDE 0.9% IV 50 ML 100 ML IVPB (20:06)
[2025-02-19] MEDS: AZITHROMYCIN IV 500 MG in SODIUM CHLORIDE 0.9% IV 250 ML IVPB (20:06)
[2025-02-20 04:00] VITALS: BP 161/80; PULSE 78; RESP 16; TEMP 37.2; O2SAT 98
[2025-02-20 06:23] LABS: Hematocrit 25.8 % (42.0-52.0); Hemoglobin 8.6 g/dL (14.0-18.0); Mean Corpuscular HGB Conc 33.3 g/dl (32-36); Mean Corpuscular Hemoglobin 31.3 pg (26-34); Mean Corpuscular Volume 93.8 fl (80-100); Platelet Count Result 314 k/mm3 (150-375); Red Blood Count 2.75 M/mm3 (4.6-6.20); White Blood Count 10.1 K/mm3 (4.5-10.0)
[2025-02-20 06:41] LABS: INR 1.4; Prothrombin Time 17.0 Seconds (11.1-14.7)
[2025-02-20 07:01] LABS: Alanine Aminotransferase 84 U/L (6-50); Albumin Level 2.6 g/dL (3.5-5.1); Alkaline Phosphatase 122 U/L (38-126); Anion Gap 7 mmol/L (4-12); Aspartate Amino Transferase 82 U/L (17-59); Bilirubin,Total 0.3 mg/dL (0.2-1.3); Blood Urea Nitrogen 49 mg/dL (9-20); Calcium 8.7 mg/dL (8.4-10.2); Carbon Dioxide 22 mmol/L (22-30); Chloride 104 mmol/L (98-107); Estimated CRCL calculation 17 ml/min; Estimated Glomerular Filt Rate 27; Glucose 104 mg/dL (65-110); Potassium 3.4 mmol/L (3.4-5.0); Sodium 133 mmol/L (137-145); Total Protein 5.4 g/dL (6.3-8.2)
[2025-02-20 08:00] VITALS: BP 153/65; PULSE 71; RESP 18; TEMP 36.3; O2SAT 98
--- NOTE | 2025-02-20 08:30 | P.PNIM_ITS ---
Progress Note: A&P Assessment and Plan (1) COVID-19: Code(s): U07.1 - COVID-19 Status: Acute Assessment and Plan: Present was done as weakness, sore throat, myalgia and occasional cough COVID tested positive Discontinue IV fluid, patient in room air Completed remdesivir for 4 days (2) Pneumonia: Code(s): J18.9 - Pneumonia, unspecified organism Status: Acute Assessment and Plan: Likely secondary to COVID pneumonia Completed azithromycin for 3 days Continue Rocephin for 5 days Follow-up chest CT in 2 weeks (3) Hyponatremia: Code(s): E87.1 - Hypo-osmolality and hyponatremia Status: Acute Assessment and Plan: Likely secondary to poor oral intake On presentation sodium was 130, today 133 Encourage oral intake Daily BMP (4) Lung nodule seen on imaging study: Code(s): R91.1 - Solitary pulmonary nodule Status: Acute Assessment and Plan: * As noted per CT scan and independently reviewed by this provider. * Pt to have follow up CT scan in two weeks. (5) Hypokalemia: Code(s): E87.6 - Hypokalemia Status: Acute Assessment and Plan: Replaced and Resolved (6) CKD stage 4 due to type 2 diabetes mellitus: Code(s): E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; N18.4 - Chronic kidney disease, stage 4 (severe) Status: Chronic Assessment and Plan: A1c 8/2 in 12/17 6% POCT, sliding scale, hypoglycemia improved Diabetic diet (7) Essential (primary) hypertension: Code(s): I10 - Essential (primary) hypertension Status: Chronic Assessment and Plan: On admission, BP 176/60 At home patient takes labetalol and hydralazine Hydralazine increased from 75 mg b.i.d. to t.i.d. BP goal less than 140/80 Can not add ACEI/ARB due to NANDINI Avoid nephro toxic agents including contrast/NSAID (8) Generalized weakness: Code(s): R53.1 - Weakness Status: Acute Assessment and Plan: Likely secondary to acute illness he feels better now (9) Anemia in chronic kidney disease: Qualifiers: Chronic kidney disease stage: stage 4 (GFR 15-29) Qualified Code(s): N18.4 - Chronic kidney disease, stage 4 (severe); D63.1 - Anemia in chronic kidney disease Code(s): N18.9 - Chronic kidney disease, unspecified; D63.1 - Anemia in chronic kidney disease Status: Chronic Assessment and Plan: On admission, hemoglobin 10.0 and today hemoglobin 8.7 Iron 13, TIBC 189, % saturation 7 Start IV iron 300 mg a day for 3 days Avoid nephrotoxic agent Encourage oral intake and control blood pressure Time Spent With Patient Time: 20 minutes Subjective Date/time seen: 02/20/25 08:30 Interval history: Patient has been better. She was eating breakfast when I evaluated him. He is a good to go home. Discussed the plan with patient and at bedside. NANDINI is improving. His stamina is better. IV iron started Exam Narrative: GENERAL: Well-appearing, well-nourished, and in no acute distress. HEAD: Normocephalic, atraumatic. ENT:? Mucous membranes moist. CHEST: Coarseness in bilateral bases.? No respiratory distress. HEART: Regular rate and rhythm. ? Normal peripheral pulses. ABDOMEN: Soft, nontender, nondistended. EXTREMITIES: Normal range of motion. No peripheral edema. SKIN: Warm dry normal color NEURO: Alert and oriented x3. PSYCH: Normal mood and affect Objective Data Vital Signs Vital Signs: Vital Signs - 24 hr 02/19/25 09:36 02/19/25 12:00 02/19/25 14:00 Temperature 36.3 C L Pulse Rate 74 Respiratory Rate 16 Blood Pressure 164/75 H Pulse Oximetry 100 Oxygen Delivery Room Air Room Air 02/19/25 16:00 02/19/25 20:00 02/19/25 20:07 Temperature 36.3 C L 36.7 C Pulse Rate 79 78 72 Respiratory Rate 16 14 Blood Pressure 150/72 H 190/78 H Pulse Oximetry 97 99 Oxygen Delivery 02/19/25 23:33 02/20/25 04:00 Temperature 36.6 C 37.2 C Pulse Rate 85 78 Respiratory Rate 14 16 Blood Pressure 124/59 L 161/80 H Pulse Oximetry 98 98 Oxygen Delivery Intake/Output Intake/Output: Intake & Output 02/17/25 02/18/25 02/19/25 02/20/25 23:59 23:59 23:59 23:59 Intake Total 450 1580 4623.3 350 Output Total 920 1790 300 Balance 620 461 8332.3 50 Meds/Results Medications: Active Medications Generic Name Dose Route Start Last Admin Trade Name Freq PRN Reason Stop Dose Admin Acetaminophen 650 mg 02/18/25 16:54 02/18/25 17:00 Acetaminophen 325 Mg Tablet PO 650 mg Q6H PRN Administration Mild Pain (1-3) or Fever Dextrose 12.5 gm 02/18/25 03:05 Dextrose 50% 25 Gm/50 Ml Syringe IV PUSH PRN PRN Hypoglycemia Protocol Febuxostat 80 mg 02/18/25 09:00 02/19/25 08:58 Febuxostat 40 Mg Tablet PO 80 mg DAILY OLENA Administration Glucagon 1 mg 02/18/25 03:05 Glucagon For Inj 1 Mg Vial IM PRN PRN Hypoglycemia Protocol Glucose 15 gm 02/18/25 03:05 Glucose Oral Gel 15 Gm Of Glucse In 37.5 Gm Tube PO PRN PRN Hypoglycemia Protocol Heparin Sodium (Porcine) 5,000 units 02/18/25 09:00 02/19/25 20:07 Heparin Sodium 5,000 Units/Ml Vial SUB-Q 5,000 units Q12HR OLENA Administration Hydralazine HCl 50 mg 02/19/25 13:00 02/19/25 20:07 Hydralazine Hcl 50 Mg Tablet PO 50 mg TID OLENA Administration Ceftriaxone Sodium 1 gm/ 50 mls @ 100 mls/hr 02/18/25 21:00 02/19/25 20:06 Sodium Chloride IVPB 100 mls/hr Q24H OLENA Administration Azithromycin 500 mg/ Sodium 250 mls @ 250 mls/hr 02/18/25 21:00 02/19/25 20:06 Chloride IVPB 250 mls/hr Q24H OLENA Administration Remdesivir 100 mg in 250 mls @ 250 mls/hr 02/19/25 10:00 02/19/25 10:54 IVPB 02/22/25 10:59 250 mls/hr Q24H OLENA Administration Sodium Chloride 1,000 mls @ 100 mls/hr 02/18/25 13:40 02/19/25 20:08 Normal Saline Iv IV CONT 100 mls/hr On Hold: 02/19/25 23:00 .Q10H OLENA Administration Iron Sucrose 300 mg/ Sodium 65 mls @ 220 mls/hr 02/20/25 09:00 Chloride IVPB 02/22/25 00:00 DAILY COUNTS INCLUDE 234 BEDS AT THE [facility] Insulin Aspart 2 - 5 units 02/18/25 08:00 02/19/25 17:10 Insulin Aspart (*Bkc) 100 Units/Ml SUB-Q Not Given TIDWM COUNTS INCLUDE 234 BEDS AT THE [facility] Protocol Labetalol HCl 100 mg 02/17/25 23:15 02/19/25 20:07 Labetalol Hcl 100 Mg Tablet PO 100 mg Q12HR OLENA Administration Simvastatin 40 mg 02/18/25 09:00 02/19/25 08:58 Simvastatin 20 Mg Tablet PO 40 mg QAM OLENA Administration Radiology Results: ITS Impressions Chest CT 02/18/25 09:14 IMPRESSION: 1. There are several patchy nodular opacities scattered throughout the mid and lower lungs, largest on the left measures 2.3 cm, largest on the right measures 2.0 cm. Differential includes but is not limited to inflammatory/infectious or malignant process. Correlate clinically. A follow-up chest CT in 1 to 2 weeks following treatment is recommended. 2. There is a 8 mm groundglass nodule in the left upper lobe and a 6 mm noncalcified pulmonary nodule in the left lower lobe. A follow-up chest CT in 3 months is recommended. 3. Tiny bilateral pleural effusions, larger on the right. 4. Bilateral nonobstructing renal stones. 5. There is a 1.0 cm hyperdense lesion in the right kidney. Differential includes hemorrhagic cyst versus renal mass. A renal mass CT is recommended. 6. There are a few small reticulonodular opacities in the mid and lower lungs, greater on the right. Attention on follow-up imaging. 7. Mildly displaced subacute fractures of the left anterolateral sixth, seventh and eighth ribs. Chest X-Ray 02/18/25 11:25 Impression: 1: Bibasilar infiltrates, suspicious for pneumonia. Labs Labs: Laboratory Results - last 24 hr 02/19/25 02/19/25 02/19/25 11:20 15:57 16:52 WBC RBC Hgb Hct MCV MCH MCHC RDW Plt Count MPV PT INR Sodium Potassium Chloride Carbon Dioxide Anion Gap BUN Creatinine Estim Creat Clear Calc Estimated GFR Glucose POC Capillary Glucose 150 H 129 H Calcium Iron TIBC % Saturation Ferritin Total Bilirubin Direct Bilirubin AST ALT Alkaline Phosphatase Total Protein Albumin Ur Random Urea 371 02/19/25 02/19/25 02/20/25 16:57 19:39 06:12 WBC 10.1 H RBC 2.75 L Hgb 8.6 L Hct 25.8 L MCV 93.8 MCH 31.3 MCHC 33.3 RDW 12.4 Plt Count 314 MPV 9.2 PT 17.0 H INR 1.4 Sodium 133 L Potassium 3.4 Chloride 104 Carbon Dioxide 22 Anion Gap 7 BUN 49 H Creatinine 2.30 H Estim Creat Clear Calc 17 Estimated GFR 27 L Glucose 104 POC Capillary Glucose 151 H Calcium 8.7 Iron 13 L TIBC 189 L % Saturation 7 L Ferritin 128.00 Total Bilirubin 0.3 Direct Bilirubin 0.0 AST 82 H ALT 84 H Alkaline Phosphatase 122 Total Protein 5.4 L Albumin 2.6 L Ur Random Urea 02/20/25 07:53 WBC RBC Hgb Hct MCV MCH MCHC RDW Plt Count MPV PT INR Sodium Potassium Chloride Carbon Dioxide Anion Gap BUN Creatinine Estim Creat Clear Calc Estimated GFR Glucose POC Capillary Glucose 108 H Calcium Iron TIBC % Saturation Ferritin Total Bilirubin Direct Bilirubin AST ALT Alkaline Phosphatase Total Protein Albumin Ur Random Urea Quality VTE Prophylaxis VTE prophylaxis: pharmacologic ordered (Heparin)
[2025-02-20] MEDS: SIMVASTATIN 20 MG TABLET 40 MG PO (09:36)
[2025-02-20] MEDS: LABETALOL HCL 100 MG TABLET PO ×2 (09:36→20:52)
[2025-02-20] MEDS: FEBUXOSTAT 40 MG TABLET 80 MG PO (09:37)
[2025-02-20] MEDS: REMDESIVIR 100 MG/NS 250 ML 100 MG/250 ML BAG 250 MG IVPB (09:58)
[2025-02-20] MEDS: IRON SUCROSE COMPLEX 300 MG in SODIUM CHLORIDE 0.9% IV 250 ML 176.67 MG IVPB (09:58)
[2025-02-20 12:00] VITALS: BP 157/60; PULSE 71; RESP 18; TEMP 36.4; O2SAT 98
[2025-02-20 16:00] VITALS: BP 153/90; PULSE 73; RESP 18; O2SAT 100
[2025-02-20 19:37] VITALS: BP 155/50; PULSE 84; RESP 16; TEMP 36.2; O2SAT 94
[2025-02-20] MEDS: AZITHROMYCIN IV 500 MG in SODIUM CHLORIDE 0.9% IV 250 ML IVPB (20:52)
[2025-02-20] MEDS: cefTRIAXone 1 GM in SODIUM CHLORIDE 0.9% IV 50 ML 100 ML IVPB (20:52)
[2025-02-21] VITALS (7 sets, daily range): BP systolic 151–171; BP diastolic 58–73; PULSE 77–94; RESP 16–18; TEMP 36.1–37.3; O2SAT 95–99
[2025-02-21 05:52] LABS: Hematocrit 24.7 % (42.0-52.0); Hemoglobin 8.3 g/dL (14.0-18.0); Mean Corpuscular HGB Conc 33.6 g/dl (32-36); Mean Corpuscular Hemoglobin 31.2 pg (26-34); Mean Corpuscular Volume 92.9 fl (80-100); Platelet Count Result 332 k/mm3 (150-375); Red Blood Count 2.66 M/mm3 (4.6-6.20); White Blood Count 10.0 K/mm3 (4.5-10.0)
[2025-02-21 06:13] LABS: Anion Gap 7 mmol/L (4-12); Blood Urea Nitrogen 49 mg/dL (9-20); Calcium 8.5 mg/dL (8.4-10.2); Carbon Dioxide 22 mmol/L (22-30); Chloride 104 mmol/L (98-107); Estimated CRCL calculation 18 ml/min; Estimated Glomerular Filt Rate 29; Glucose 100 mg/dL (65-110); Potassium 3.1 mmol/L (3.4-5.0); Sodium 133 mmol/L (137-145)
[2025-02-21] MEDS: POTASSIUM CHLORIDE 20 MEQ ER TABLET PO (09:25)
[2025-02-21] MEDS: LABETALOL HCL 100 MG TABLET PO ×2 (09:26→20:55)
[2025-02-21] MEDS: FEBUXOSTAT 40 MG TABLET 80 MG PO (09:26)
[2025-02-21] MEDS: SIMVASTATIN 20 MG TABLET 40 MG PO (09:26)
[2025-02-21] MEDS: IRON SUCROSE COMPLEX 300 MG in SODIUM CHLORIDE 0.9% IV 250 ML 177 MG IVPB (10:14)
--- NOTE | 2025-02-21 11:32 | P.PNIM_ITS ---
Progress Note: A&P Assessment and Plan (1) COVID-19: Code(s): U07.1 - COVID-19 Status: Acute Assessment and Plan: Present was done as weakness, sore throat, myalgia and occasional cough COVID tested positive Discontinue IV fluid, patient in room air Completed remdesivir for 4 days (2) Pneumonia: Code(s): J18.9 - Pneumonia, unspecified organism Status: Acute Assessment and Plan: Likely secondary to COVID pneumonia Completed azithromycin for 3 days Continue Rocephin for 5 days Follow-up chest CT in 2 weeks (3) Hyponatremia: Code(s): E87.1 - Hypo-osmolality and hyponatremia Status: Acute Assessment and Plan: Likely secondary to poor oral intake On presentation sodium was 130, today 133 Encourage oral intake Daily BMP (4) Lung nodule seen on imaging study: Code(s): R91.1 - Solitary pulmonary nodule Status: Acute Assessment and Plan: * As noted per CT scan and independently reviewed by this provider. * Pt to have follow up CT scan in two weeks. (5) Hypokalemia: Code(s): E87.6 - Hypokalemia Status: Acute Assessment and Plan: Replaced and Resolved (6) CKD stage 4 due to type 2 diabetes mellitus: Code(s): E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; N18.4 - Chronic kidney disease, stage 4 (severe) Status: Chronic Assessment and Plan: A1c 8/2 in 12/17 6% POCT, sliding scale, hypoglycemia improved Diabetic diet (7) Essential (primary) hypertension: Code(s): I10 - Essential (primary) hypertension Status: Chronic Assessment and Plan: On admission, BP 176/60 At home patient takes labetalol and hydralazine Hydralazine increased from 75 mg b.i.d. to t.i.d. BP goal less than 140/80 Can not add ACEI/ARB due to NANDINI Avoid nephro toxic agents including contrast/NSAID add labetalol 25 mg b.i.d. BP goal less than 140/80 (8) Generalized weakness: Code(s): R53.1 - Weakness Status: Acute Assessment and Plan: Likely secondary to acute illness he feels better now (9) Anemia in chronic kidney disease: Qualifiers: Chronic kidney disease stage: stage 4 (GFR 15-29) Qualified Code(s): N18.4 - Chronic kidney disease, stage 4 (severe); D63.1 - Anemia in chronic kidney disease Code(s): N18.9 - Chronic kidney disease, unspecified; D63.1 - Anemia in chronic kidney disease Status: Chronic Assessment and Plan: On admission, hemoglobin 10.0 and today hemoglobin 8.7 Iron 13, TIBC 189, % saturation 7 IV iron 300 mg a day for 3 days Avoid nephrotoxic agent Encourage oral intake and control blood pressure Plan home tomorrow Time Spent With Patient Time: 20 minutes Subjective Date/time seen: 02/21/25 11:32 Interval history: at bedside. patient is doing a lot better today. mild sore throat. he is ambitious to go home but discussed about his kidney injury- he is stay 1 night to complete his IV iron infusion and blood work. Exam Narrative: GENERAL: Well-appearing, well-nourished, and in no acute distress. HEAD: Normocephalic, atraumatic. ENT:? Mucous membranes moist. CHEST: Coarseness in bilateral bases.? No respiratory distress. HEART: Regular rate and rhythm. ? Normal peripheral pulses. ABDOMEN: Soft, nontender, nondistended. EXTREMITIES: Normal range of motion. No peripheral edema. SKIN: Warm dry normal color NEURO: Alert and oriented x3. PSYCH: Normal mood and affect Objective Data Vital Signs Vital Signs: Vital Signs - 24 hr 02/20/25 12:00 02/20/25 16:00 02/20/25 19:37 Temperature 36.4 C 36.2 C L Pulse Rate 71 73 84 Respiratory Rate 18 18 16 Blood Pressure 157/60 H 153/90 H 155/50 H Pulse Oximetry 98 100 94 02/21/25 00:00 02/21/25 04:13 02/21/25 08:00 Temperature 36.9 C 37.3 C 36.2 C L Pulse Rate 77 82 94 Respiratory Rate 18 18 16 Blood Pressure 152/58 H 165/72 H 171/67 H Pulse Oximetry 99 97 97 Intake/Output Intake/Output: Intake & Output 02/18/25 02/19/25 02/20/25 02/21/25 23:59 23:59 23:59 23:59 Intake Total 1580 5173.3 1745 990 Output Total 920 1790 900 900 Balance 660 3383.3 845 90 Meds/Results Medications: Active Medications Generic Name Dose Route Start Last Admin Trade Name Freq PRN Reason Stop Dose Admin Acetaminophen 650 mg 02/18/25 16:54 02/18/25 17:00 Acetaminophen 325 Mg Tablet PO 650 mg Q6H PRN Administration Mild Pain (1-3) or Fever Dextrose 12.5 gm 02/18/25 03:05 Dextrose 50% 25 Gm/50 Ml Syringe IV PUSH PRN PRN Hypoglycemia Protocol Febuxostat 80 mg 02/18/25 09:00 02/21/25 09:26 Febuxostat 40 Mg Tablet PO 80 mg DAILY OLENA Administration Glucagon 1 mg 02/18/25 03:05 Glucagon For Inj 1 Mg Vial IM PRN PRN Hypoglycemia Protocol Glucose 15 gm 02/18/25 03:05 Glucose Oral Gel 15 Gm Of Glucse In 37.5 Gm Tube PO PRN PRN Hypoglycemia Protocol Heparin Sodium (Porcine) 5,000 units 02/18/25 09:00 02/21/25 09:26 Heparin Sodium 5,000 Units/Ml Vial SUB-Q 5,000 units Q12HR OLENA Administration Hydralazine HCl 75 mg 02/20/25 14:00 02/21/25 05:10 Hydralazine Hcl 25 Mg Tablet PO 75 mg Q8HR OLENA Administration Ceftriaxone Sodium 1 gm/ 50 mls @ 100 mls/hr 02/18/25 21:00 02/20/25 20:52 Sodium Chloride IVPB 100 mls/hr Q24H OLENA Administration Azithromycin 500 mg/ Sodium 250 mls @ 250 mls/hr 02/18/25 21:00 02/20/25 20:52 Chloride IVPB 250 mls/hr Q24H OLENA Administration Sodium Chloride 1,000 mls @ 100 mls/hr 02/18/25 13:40 02/19/25 20:08 Normal Saline Iv IV CONT 100 mls/hr On Hold: 02/19/25 23:00 .Q10H OLENA Administration Iron Sucrose 300 mg/ Sodium 265 mls @ 176.667 mls/hr 02/20/25 09:00 02/21/25 10:14 Chloride IVPB 177 mls/hr DAILY OLENA Administration Insulin Aspart 2 - 5 units 02/18/25 08:00 02/21/25 07:47 Insulin Aspart (*Bkc) 100 Units/Ml SUB-Q Not Given TIDWM [facility] Protocol Labetalol HCl 100 mg 02/17/25 23:15 02/21/25 09:26 Labetalol Hcl 100 Mg Tablet PO 100 mg Q12HR OLENA Administration Simvastatin 40 mg 02/18/25 09:00 02/21/25 09:26 Simvastatin 20 Mg Tablet PO 40 mg QAM OLENA Administration Radiology Results: ITS Impressions Chest CT 02/18/25 09:14 IMPRESSION: 1. There are several patchy nodular opacities scattered throughout the mid and lower lungs, largest on the left measures 2.3 cm, largest on the right measures 2.0 cm. Differential includes but is not limited to inflammatory/infectious or malignant process. Correlate clinically. A follow-up chest CT in 1 to 2 weeks following treatment is recommended. 2. There is a 8 mm groundglass nodule in the left upper lobe and a 6 mm noncalcified pulmonary nodule in the left lower lobe. A follow-up chest CT in 3 months is recommended. 3. Tiny bilateral pleural effusions, larger on the right. 4. Bilateral nonobstructing renal stones. 5. There is a 1.0 cm hyperdense lesion in the right kidney. Differential includes hemorrhagic cyst versus renal mass. A renal mass CT is recommended. 6. There are a few small reticulonodular opacities in the mid and lower lungs, greater on the right. Attention on follow-up imaging. 7. Mildly displaced subacute fractures of the left anterolateral sixth, seventh and eighth ribs. Chest X-Ray 02/18/25 11:25 Impression: 1: Bibasilar infiltrates, suspicious for pneumonia. Labs Labs: Laboratory Results - last 24 hr 02/20/25 02/20/25 02/20/25 11:38 16:51 19:44 WBC RBC Hgb Hct MCV MCH MCHC RDW Plt Count MPV Sodium Potassium Chloride Carbon Dioxide Anion Gap BUN Creatinine Estim Creat Clear Calc Estimated GFR Glucose POC Capillary Glucose 123 H 140 H 187 H Calcium 02/21/25 02/21/25 05:32 08:00 WBC 10.0 RBC 2.66 L Hgb 8.3 L Hct 24.7 L MCV 92.9 MCH 31.2 MCHC 33.6 RDW 12.7 Plt Count 332 MPV 9.2 Sodium 133 L Potassium 3.1 L Chloride 104 Carbon Dioxide 22 Anion Gap 7 BUN 49 H Creatinine 2.17 H Estim Creat Clear Calc 18 Estimated GFR 29 L Glucose 100 POC Capillary Glucose 115 H Calcium 8.5 Quality VTE Prophylaxis VTE prophylaxis: pharmacologic ordered (Heparin)
[2025-02-21] MEDS: INSULIN ASPART (*BKC) 100 UNITS/ML SUB-Q (12:58)
[2025-02-21] MEDS: LABETALOL PO ×2 (12:58→20:55)
[2025-02-21 17:57] LABS: Anion Gap 11 mmol/L (4-12); Blood Urea Nitrogen 47 mg/dL (9-20); Calcium 8.8 mg/dL (8.4-10.2); Carbon Dioxide 20 mmol/L (22-30); Chloride 104 mmol/L (98-107); Estimated CRCL calculation 17 ml/min; Estimated Glomerular Filt Rate 27; Glucose 140 mg/dL (65-110); Potassium 3.5 mmol/L (3.4-5.0); Sodium 135 mmol/L (137-145)
[2025-02-21] MEDS: cefTRIAXone 1 GM in SODIUM CHLORIDE 0.9% IV 50 ML 100 ML IVPB (20:56)
[2025-02-21 23:07] LABS: Osmolality, Serum 286 mOsmol/kg (280-301)
[2025-02-22] VITALS: BP 142/65; PULSE 83; RESP 20; TEMP 37.2; O2SAT 97
[2025-02-22 05:38] VITALS: BP 154/71; PULSE 80; RESP 20; TEMP 37.1; O2SAT 98
[2025-02-22 05:53] LABS: Hematocrit 25.2 % (42.0-52.0); Hemoglobin 8.3 g/dL (14.0-18.0); Mean Corpuscular HGB Conc 32.9 g/dl (32-36); Mean Corpuscular Hemoglobin 31.4 pg (26-34); Mean Corpuscular Volume 95.5 fl (80-100); Platelet Count Result 328 k/mm3 (150-375); Red Blood Count 2.64 M/mm3 (4.6-6.20); White Blood Count 9.9 K/mm3 (4.5-10.0)
[2025-02-22 06:04] LABS: INR 1.4; Prothrombin Time 17.2 Seconds (11.1-14.7)
[2025-02-22 06:20] LABS: Alanine Aminotransferase 60 U/L (6-50); Albumin Level 2.6 g/dL (3.5-5.1); Alkaline Phosphatase 100 U/L (38-126); Anion Gap 9 mmol/L (4-12); Aspartate Amino Transferase 62 U/L (17-59); Bilirubin,Total 0.2 mg/dL (0.2-1.3); Blood Urea Nitrogen 46 mg/dL (9-20); Calcium 8.8 mg/dL (8.4-10.2); Carbon Dioxide 19 mmol/L (22-30); Chloride 107 mmol/L (98-107); Estimated CRCL calculation 17 ml/min; Estimated Glomerular Filt Rate 28; Glucose 92 mg/dL (65-110); Potassium 3.4 mmol/L (3.4-5.0); Sodium 135 mmol/L (137-145); Total Protein 5.6 g/dL (6.3-8.2)
--- NOTE | 2025-02-22 08:19 | PM.DS ---
DS: Admitting Diagnosis Discharge Date Admitting Diagnosis Fatigue, weakness, and unsteady gait, increased urination, decreased appetite Found to have NANDINI on CKD, COVID, anemia DS: Discharge Diagnosis Discharge Diagnosis (1) Acute kidney injury superimposed on CKD: Code(s): N17.9 - Acute kidney failure, unspecified; N18.9 - Chronic kidney disease, unspecified Status: Acute (2) NANDINI (acute kidney injury): Code(s): N17.9 - Acute kidney failure, unspecified Status: Acute (3) Pneumonia: Code(s): J18.9 - Pneumonia, unspecified organism Status: Acute (4) Lung nodule seen on imaging study: Code(s): R91.1 - Solitary pulmonary nodule Status: Acute (5) Generalized weakness: Code(s): R53.1 - Weakness Status: Acute (6) Hypokalemia: Code(s): E87.6 - Hypokalemia Status: Acute (7) Hyponatremia: Code(s): E87.1 - Hypo-osmolality and hyponatremia Status: Acute (8) Pneumonia due to COVID-19 virus: Code(s): U07.1 - COVID-19; J12.82 - Pneumonia due to coronavirus disease 2019 Status: Acute (9) COVID-19: Code(s): U07.1 - COVID-19 Status: Acute DS: Summary Hospital Course Reason for hospitalization: Chronic fatigue Hospital Course: Maria Alejandra is an 84-year-old male with hypertension, CKD who present with complaints of fatigue, weakness, and unsteady gait, increased urination and decreased appetite. Patient was tested COVID positive. He was treated for COVID pneumonia. He completed remdesivir for 4 days, azithromycin for 4 days, ceftriaxone for 5 days. Patient was also diagnosed with is NANDINI superimposed on CKD. On admission creatinine was 3.39, after IV fluid and encourage oral intake creatinine improved to 2.27. 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 He received IV iron for 3 days. His blood pressure was also uncontrolled. Hydralazine was increased to 75 mg t.i.d. and labetalol 125 mg b.i.d. he was instructed to check his blood pressure at least 4 times a week in the morning and in the afternoon. He was given a PCP and Nephrology follow-up instruction. He was also told to get blood work in 4 days. He felt so well and he was ready to go home. He was discharged with his 02/22/2025. Status at Discharge Functional status at discharge: independent ambulation Time Spent with Patient Time attestation: 35 minutes Total time spent providing and/or coordinating discharge services: Exam Narrative: APPEARANCE: No acute distress, pleasant to talk to EYES: EOMI HEENT: Normocephalic, atraumatic, OMM RESPIRATORY: No respiratory distress Clear to auscultation bilaterally with no rhonchi wheezing or rales. CARDIOVASCULAR: RRR, S1 and S2 without murmurs rubs or gallops. ABDOMINAL: Soft, nontender, nondistended, no rebound or guarding MUSCULOSKELETAl: Moves his extremity spontaneously, able to to walk NEURO: Awake and alert. Following commands, speech normal, no focal deficits SKIN:: Warm, dry. No rashes lesions or abrasions PSYCHIATRIC: Normal affect/mood DS: Data Data Completed and Pending Labs on day of discharge: Labs from last 24 hours 02/22/25 02/22/25 02/21/25 07:34 05:27 21:03 WBC 9.9 RBC 2.64 L Hgb 8.3 L Hct 25.2 L MCV 95.5 MCH 31.4 MCHC 32.9 RDW 13.0 Plt Count 328 MPV 9.2 PT 17.2 H INR 1.4 Sodium 135 L Potassium 3.4 Chloride 107 Carbon Dioxide 19 L Anion Gap 9 BUN 46 H Creatinine 2.27 H Estim Creat Clear Calc 17 Estimated GFR 28 L Glucose 92 POC Capillary Glucose 99 112 H Serum Osmolality Calcium 8.8 Total Bilirubin 0.2 Direct Bilirubin 0.0 AST 62 H ALT 60 H Alkaline Phosphatase 100 Total Protein 5.6 L Albumin 2.6 L 02/21/25 02/21/25 02/21/25 17:30 16:31 11:35 WBC RBC Hgb Hct MCV MCH MCHC RDW Plt Count MPV PT INR Sodium 135 L Potassium 3.5 Chloride 104 Carbon Dioxide 20 L Anion Gap 11 BUN 47 H Creatinine 2.28 H Estim Creat Clear Calc 17 Estimated GFR 27 L Glucose 140 H POC Capillary Glucose 90 224 H Serum Osmolality Calcium 8.8 Total Bilirubin Direct Bilirubin AST ALT Alkaline Phosphatase Total Protein Albumin 02/19/25 06:18 WBC RBC Hgb Hct MCV MCH MCHC RDW Plt Count MPV PT INR Sodium Potassium Chloride Carbon Dioxide Anion Gap BUN Creatinine Estim Creat Clear Calc Estimated GFR Glucose POC Capillary Glucose Serum Osmolality 286 Calcium Total Bilirubin Direct Bilirubin AST ALT Alkaline Phosphatase Total Protein Albumin Preliminary micro results at discharge 02/17/25 20:15 Blood Culture - Preliminary Blood 02/17/25 21:15 Blood Culture - Preliminary Blood Discharge Plan Discharge Attending physician on discharge: Papo Martin Consulting providers: Bridgette Holt Discharging Clinician: Inna Almanza Anticipated Discharge Date/Time: 02/22/25 08:10 Patient Disposition: Home with Home Health Service Activity: unlimited Diet: regular Discharge Instructions: Per Care Coordination: [employer] ([phone]) will call to schedule initial visit. RN please fax discharge instructions to [phone]. Please continue labetalol 125 mg twice a day Continue hydralazine 75 mg 3 times a day Check your blood pressure at least 4 times a week-check your blood pressure 2 times in the morning and 2 times in the afternoon in separate days Patient Instructions: Antibiotic Form Patient Language: Montserratian Stand Alone Forms: General Discharge Information Follow-up/Referrals: Yayo Thomas MD [Primary Care Provider, Internal Medicine] - 1 Week Referral Note: CBC and BMP in 4 days Discharge Medications: New hydralazine 25 mg Tablet 75 mg PO Q8HR Qty: 90 0RF labetalol 100 mg Tablet 100 mg PO Q12HR Qty: 90 0RF Continued magnesium 250 mg tablet 250 mg PO .3 times weekly Patient Comments: administer sunday, , and sunday febuxostat 80 mg tablet 80 mg PO DAILY Qty: 90 1RF simvastatin 40 mg tablet See Rx Instructions .ROUTE .COMPLEX Qty: 90 2RF Dose Instruction: TAKE 1 TABLET BY MOUTH EVERY DAY Rx Instructions: TAKE 1 TABLET BY MOUTH EVERY DAY labetalol 100 mg tablet See Rx Instructions .ROUTE .COMPLEX Qty: 180 2RF Dose Instruction: TAKE 1 TABLET BY MOUTH TWICE A DAY Rx Instructions: TAKE 1 TABLET BY MOUTH TWICE A DAY Held furosemide 40 mg tablet See Rx Instructions .ROUTE .COMPLEX Qty: 90 2RF Hold Instructions: Resume on 02/28/25. Talk to your glass frame fitter before you restart furosemide Dose Instruction: TAKE 1 TABLET BY MOUTH EVERY DAY Rx Instructions: TAKE 1 TABLET BY MOUTH EVERY DAY Discontinued hydralazine 50 mg tablet See Rx Instructions .ROUTE .COMPLEX Qty: 180 2RF Dose Instruction: TAKE 1 TAB BY MOUTH TWICE DAILY Rx Instructions: TAKE 1 TAB BY MOUTH TWICE DAILY Other Ambulatory Orders: Basic Metabolic Panel (Routine) Timeframe: 4 Days Location: Determined by Patient Ordered By: Inna Almanza Date of admission: 02/17/25 21:37 Primary Care Provider: Yayo Thomas Admitting Provider: Papo Martin Attending physician on admission: Papo Martin Condition: Improved
[2025-02-22] MEDS: IRON SUCROSE COMPLEX 300 MG in SODIUM CHLORIDE 0.9% IV 250 ML 176.67 MG IVPB (09:27)
[2025-02-22 09:28] VITALS: PULSE 84
[2025-02-22] MEDS: SIMVASTATIN 20 MG TABLET 40 MG PO (09:28)
[2025-02-22] MEDS: LABETALOL PO (09:28)
[2025-02-22] MEDS: LABETALOL HCL 100 MG TABLET PO (09:28)
[2025-02-22] MEDS: FEBUXOSTAT 40 MG TABLET 80 MG PO (09:29)
[2025-02-24 13:08] LABS: Osmolality, Urine 287 mOsmol/kg (.)
== END 2025-02-22 11:55 | disposition home health service (06) | DRG 177 ==
LOC: ANHED 22:14 → ANH3MEDSUR 22:14
PROVIDERS: Nurse Practitioner; Nurse Practitioner Adult Health; Admitting Provider Internal Medicine; Emergency Provider Emergency Medicine; PCP Emergency Medicine; Visit Provider Student in an Organized Health Care Education/Training Program
DX: U07.1 COVID-19 (principal); J12.82 Pneumonia due to coronavirus disease 2019; E87.1 Hypo-osmolality and hyponatremia; N18.4 Chronic kidney disease, stage 4 (severe); N17.9 Acute kidney failure, unspecified; R91.1 Solitary pulmonary nodule; E87.6 Hypokalemia; I12.9 Hypertensive chronic kidney disease with stage 1 through stage 4 chronic kidney disease, or unspecified chronic kidney disease; E11.22 Type 2 diabetes mellitus with diabetic chronic kidney disease; D63.1 Anemia in chronic kidney disease; D50.9 Iron deficiency anemia, unspecified; R53.1 Weakness; M10.9 Gout, unspecified; E78.2 Mixed hyperlipidemia; C61 Malignant neoplasm of prostate; M19.049 Primary osteoarthritis, unspecified hand; M19.09 Primary osteoarthritis, other specified site; I70.0 Atherosclerosis of aorta; Z79.899 Other long term (current) drug therapy; Z87.891 Personal history of nicotine dependence; Z98.1 Arthrodesis status; Z98.890 Other specified postprocedural states
CPT/HCPCS: 36415; 71045; 71046; 71250; 80048; 80053; 80076; 81001; 82248; 82728; 82948; 83036; 83540; 83550; 83605; 83690; 83735; 83930; 83935; 84540; 85025; 85027; 85610; 87040; 97162; 97166; 99285; A9270; J0248; J0456; J0696; J1644; J1756; J1815; J7030; J7050

== ENCOUNTER 2025-02-27 07:56 | Outpatient (CLI) | payer MEDICARE, SELFPAY ==
--- OUTSIDE RECORDS SUMMARY | 2025-02-27 08:00 | XMS_ITS | Clinical Summary ---
Author Organization [facility] Address [address] [place] [id number] Phone Care Team Providers Care Air Export Agent Name Role Phone Aramis Tompkins Primary Care Provider [phone] Allergies Active Allergy Reactions Criticality Noted Date Comments Allopurinol Rash Low 03/27/2019 Diclofenac 01/07/2002 Doxycycline 11/22/2005 Peg 2698-Xyq-Lkbqm-Nacl-Nasulf 05/11 Medications sildenafil (VIAGRA) 100 MG tablet [...] 8:34 AM CDT Height 172.7 cm (5' 8) 03/15/2022 8:34 AM CDT Body Mass Index 19.77 03/15/2022 8:34 AM CDT Plan of Treatment Health Maintenance Due Date Last Done Comments COVID-19 Vaccine (3 2023-2 5 season) 2024 09/10/2020, 08/20/2020 Influenza Vaccine (#1) 2025 , 03/18/2021, 03/25/2020, Additional history exists Pneumococcal PPSV23/PCV13 65 + Years / Low and Medium Risk Completed 10/30/2014, 10/30/2014, 03/30/2005 Insurance [employer] Care Teams Air Export Agent Relationship Specialty Start Date End Date Aramis Tompkins DO PCP - General Family Medicine 03/15/22
--- OUTSIDE RECORDS SUMMARY | 2025-02-27 08:00 | XMS_ITS | Clinical Summary ---
Author Organization [facility] Address [facility] [place] [address] Care Team Providers Care Cardroom Worker Name Role Phone Tete Kay MD Primary Care Provider [phone] Allergies Active Allergy Reactions Criticality Noted Date [...] (02/03/2021): Added automatically from request for surgery [id number] Anemia in chronic kidney disease 08/28/2018 Hypertensive [...] history exists Medical Devices Implanted Type Area Valuation Consultant Device Identifier Shelf Expiration Date Model / Serial / Lot [employer] 700-025 I Factor Allograft Putty Syringe Graft 2.5cc Bone - Sna - [id number] Implanted:Qty : 1 on 03/03/2021 by Chacorta Wheeler MD at [facility] Other - see comments N/A: Spine Cervical [employer] [id number] 07/25/2023 700-025 / NA / [id number] Bowie Spine [id number] L14 Mm X W17 Mm X H6 Mm Cervical Anterior 10 D Cage Spinal Tritanium Sterile Latex Free - Sna - [id number] Implanted:Qty : 1 on 03/03/2021 by Chacorta Wheeler MD at [facility] Other - see comments N/A: Spine Cervical Bowie Spine [id number] 05/31/2022 [id number] / NA / [id number] Bowie Spine [id number] Plate 20mm Bone Hettinger Spine Cervical 1 Level Nonsterile Latex Free - Sna - [id number] Implanted:Qty : 1 on 03/03/2021 by Chacorta Wheeler MD at [facility] Screw N/A: Spine Cervical Norbert Spine [id number] / NA / Norbert Spine [id number] Screw 16mm 4mm Bone Hettinger Spine Cervical Self Start Variable Angle Nonsterile - Sna - [id number] Implanted:Qty : 3 on 03/03/2021 by Chacorta Wheeler MD at [facility] Screw N/A: Spine Cervical Norbert Spine [id number] / NA / Norbert Spine [id number] zark 4.5mm 16mm Self Start Variable Angle Spine Cervical Screw - Sna - [id number] Implanted:Qty : 1 on 03/03/2021 by Chacorta Wheeler MD at [facility] Screw N/A: Spine Cervical Bowie Spine [id number] DA / NA / Procedures Procedure Name Priority Date/Time Associated Diagnosis Comments EGFR Routine 03/04/2021 3:31 AM CDT HEMOGLOBIN A1C Routine 02/16/2021 2:50 PM CDT Preoperative testing from Last 3 Months or Most Recently Relevant to Health Maintenance Results * eGFR (03/04/2021 3:31 AM CDT) Pathologist [facility] eGFR 37 mL/min/1.7 3 m2 [facility] Comment: Interpretive Data Reference Interval Normal [...] ORDERABLES Shi l Result Performing Organization Address City/[facility]/ZIP Co de Phone Number [facility] [id number] [address] [facility] [place] [address] * (ABNORMAL) Hemoglobin A1c (02/16/2021 2:50 PM CDT) Hgb A1C 5.9(H) 4.0 - 5.6 % [facility] Comment:Testing performed by : [facility], [address] [place] [address]., [id number] Estimated Average Glucose 123 mg/dL [facility] Comment: The ADA recommends reporting an estimated Average Glucose (eAG) with all Hemoglobin A1c results using the equation derived from a study of 507 normal and diabetic adults. Minority populations were underrepresented and children were not included. (Diabetes Care 31:6159-6270, 2008). The eAG is not equivalent to a fasting glucose. Testing performed by: [facility], [address] [place] [address]., [id number] Blood 02/16/2021 2:50 PM CDT 02/16/2021 6:00 PM CDT us Meño Arnold NP LAB BLOOD ORDERABLES Fin al Result Performing Organization Address [facility]/ZIP Co de Phone Number [facility] [address] [facility] [place] [address] from Last 3 Months or Most Recently Relevant to Health Maintenance Insurance AETNA MCR ADV REF AETNA MCR ADV REF AETNA MCR ADV REF AETNA MCR ADV REF Advance Directives For more information, please contact: [phone] * Full Code (Latest Code Status on File) Date Activated Date Inactivated Comments 03/03/2021 7:57 PM 03/04/2021 5:47 PM Healthcare Agents on File Name Relationship Healthcare Agent [facility] p Communication Caprice Burleson Spouse Health Care Agent Care Teams Cardroom Worker Relationship Specialty Start Date End Date Tete Kay MD [address] [place] [address] PCP - General Family Medicine 01/04/21
--- OUTSIDE RECORDS SUMMARY | 2025-02-27 08:00 | XMS_ITS | Encounter Summary ---
Author Organization [facility] Address [address] [place] [address] Care Team Providers Care Finish Off Operator Name Role Phone Tete Kay MD Primary Care Provider [phone] Encounter Details Date Type Department Care Team (Late st Contact Info) Description 01/10/2021 Telephone [facility] [address] [place] [address] Clari Syed, RT Social History Tobacco Use [...] on filedocumented in this encounter Care Teams Finish Off Operator Relationship Specialty Start Date End Date Tete Kay MD [address] [place] [address] PCP - General Family Medicine 01/04/21 documented as of this encounter
[2025-02-27 12:10] LABS: Hematocrit 26.6 % (42.0-52.0); Hemoglobin 8.5 g/dL (14.0-18.0); Mean Corpuscular HGB Conc 32.0 g/dl (32-36); Mean Corpuscular Hemoglobin 31.1 pg (26-34); Mean Corpuscular Volume 97.4 fl (80-100); Platelet Count Result 440 k/mm3 (150-375); Red Blood Count 2.73 M/mm3 (4.6-6.20); White Blood Count 9.0 K/mm3 (4.5-10.0)
[2025-02-27 12:15] LABS: Alanine Aminotransferase 45 U/L (6-50); Albumin Level 3.1 g/dL (3.5-5.1); Alkaline Phosphatase 103 U/L (38-126); Anion Gap 8 mmol/L (4-12); Aspartate Amino Transferase 72 U/L (17-59); Bilirubin,Total 0.4 mg/dL (0.2-1.3); Blood Urea Nitrogen 43 mg/dL (9-20); Calcium 9.1 mg/dL (8.4-10.2); Carbon Dioxide 23 mmol/L (22-30); Chloride 108 mmol/L (98-107); Cholesterol 76 mg/dL (0-200); Estimated Glomerular Filt Rate 22; Glucose 102 mg/dL (65-110); HDL Direct 31 mg/dL; Potassium 4.0 mmol/L (3.4-5.0); Sodium 139 mmol/L (137-145); Total Protein 6.4 g/dL (6.3-8.2); Triglycerides 65 mg/dL (<150)
[2025-02-27 12:28] LABS: Parathyroid Intact 139.6 pg/mL (14.5-75.2)
[2025-02-27 13:39] LABS: Hemoglobin A1C 6.1 % (<5.7)
[2025-02-27 13:42] LABS: MALB Creatinine Ratio 706.3 mg/g (0-30)
[2025-02-27 15:50] LABS: Total Protein Urine Random 112 mg/dL; Ur Ttl Prot Creatinine Ratio 1.72 mg/mg (0-0.20)
--- OUTSIDE RECORDS SUMMARY | 2025-04-24 19:00 | XMS_ITS | Clinical Summary ---
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 Sharpener Name Role Phone MIMI HERRERA, LUKE Unavailable Unavailable UMA RN, YOKASTA Unavailable Unavailabl e TRACI AGUILERAN, LORENZO Unavailable Unavailable MARCUS PT, FRAN Unavailable Unavailable JESSICA OT, VILMA Unavailable Unavailable KAYLEE PROFESSOR OF COMMUNICATION AND WRITING, [place] Unavailable Unavailabl e Payers Payer Name Policy Type Policy Number Effective Date Expira tion Date [facility] [id number] Problems Condition Name Condition Details Condition Category Status Onset Date Resolution Date Last Treatment Date Treating Clinician Comments MUSCLE WEAKNESS (GENERALIZE D) Active 8 00:00: 00 Allergies, Adverse Reactions, Alerts Allergy Name Allergy Type Status Severity Reaction(s) Onset Date Inactive Date Treating Clinician Comments ALLOPURINOL Propensity to adverse reactions Active 02-26 07:51: 03 DICLOFENAC Propensity to adverse reactions Active 02-26 07:51: 21 DOXYCYCLINE Propensity to adverse reactions Active 02-26 07:51: 30 PROBENECID Propensity to adverse reactions Active 02-26 07:51: 43 Vital Signs Vital Name Observation Time Observation Value Commen ts Temperature 2025-02-25 11:37:00.000 97.4 [degF] BMI (%) 2025-02-25 11:16:22.000 20 kg/m2 Height 2025-02-25 11:15:51.000 65 [in_us] Pulse 2025-02-25 11:37:00.000 56 /min O2 Saturation (%) 2025-02-25 11:37:00.000 97 % Respirations 2025-02-25 11:37:00.000 18 /min Weight (lbs) 2025-02-25 11:16:22.000 125 [lb_av] Systolic Blood Pressure 2025-02-25 11:37:00.000 162 mm [Hg] Diastolic Blood Pressure 2025-02-25 11:37:00.000 72 mm [Hg] Plan of Treatment Planned Activity Planned Date Details Comments Future Scheduled Test RN TO OBSE RVE, ASSESS, EVALUATE, AND DEVELOP AN INDIVIDUALIZED PLAN OF CARE. AGENCY MAY ACCEPT ORDERS FROM CONSULTING PHYSICIANS DR LE . RN TO OBSERVE AND ASSESS, HOT ROLL INSPECTOR/MEETING PLANNER TO OBSERVE FOR RISK FOR FALLS AND INSTRUCT IN FALL PREVENTION, HOME SAFETY, MEDICATION MANAGEMENT, INFECTION PREVENTION, AND NUTRITION MANAGEMENT. RN/HOT ROLL INSPECTOR/MEETING PLANNER NURSE MAY PERFORM O2 SATURATION LEVEL ON ADMISSION AND PRN FOR COVID 19 AND PNEUMONIA FOR RN TO ASSESS/HOT ROLL INSPECTOR TO OBSERVE PATIENT, WITH NOTIFICATION TO THE PHYSICIAN IF SATURATION IS 90% IN THE ABSENCE OF MORE SPECIFIC PARAMETERS FROM THE PHYSICIAN. AGENCY MAY PERFORM A RESUMPTION OF CARE VISIT FOLLOWING ANY HOSPITAL ADMISSION. RN/HOT ROLL INSPECTOR/MEETING PLANNER TO MONITOR CO-MORBID CONDITIONS LISTED ON THE PLAN OF CARE AND ANY NEW CONDITIONS THAT PRESENT THEMSELVES DURING THIS EPISODE TO IDENTIFY CHANGES AND INTERVENE TO MINIMIZE COMPLICATIONS. [code = RN TO OBSERVE, ASSESS, EVALUATE, AND DEVELOP AN INDIVIDUALIZED PLAN OF CARE. AGENCY MAY ACCEPT ORDERS FROM CONSULTING PHYSICIANS DR LE . RN TO OBSERVE AND ASSESS, HOT ROLL INSPECTOR/MEETING PLANNER TO OBSERVE FOR RISK FOR FALLS AND INSTRUCT IN FALL PREVENTION, HOME SAFETY, MEDICATION MANAGEMENT, INFECTION PREVENTION, AND NUTRITION MANAGEMENT. RN/HOT ROLL INSPECTOR/MEETING PLANNER NURSE MAY PERFORM O2 SATURATION LEVEL ON ADMISSION AND PRN FOR COVID 19 AND PNEUMONIA FOR RN TO ASSESS/HOT ROLL INSPECTOR TO OBSERVE PATIENT, WITH NOTIFICATION TO THE PHYSICIAN IF SATURATION IS 90% IN THE ABSENCE OF MORE SPECIFIC PARAMETERS FROM THE PHYSICIAN. AGENCY MAY PERFORM A RESUMPTION OF CARE VISIT FOLLOWING ANY HOSPITAL ADMISSION. RN/HOT ROLL INSPECTOR/MEETING PLANNER TO MONITOR CO-MORBID CONDITIONS LISTED ON THE PLAN OF CARE AND ANY NEW CONDITIONS THAT PRESENT THEMSELVES DURING THIS EPISODE TO IDENTIFY CHANGES AND INTERVENE TO MINIMIZE COMPLICATIONS.] Future Scheduled Test MEDICATION MANAGEMENT; RN/HOT ROLL INSPECTOR/MEETING PLANNER TO REVIEW MEDICATIONS FOR INTERACTIONS, EFFECTIVENESS OF DRUG THERAPY, AND SIGNS/SYMPTOMS OF ADVERSE REACTIONS. MAY INSTRUCT AND REINFORCE MEDICATION TEACHING RELATED TO THE USE OF MEDICATIONS, DOSAGE, FREQUENCY, PURPOSE, SIDE EFFECTS, AND TO REPORT COMPLICATIONS. [code = MEDICATION MANAGEMENT; RN/HOT ROLL INSPECTOR/MEETING PLANNER TO REVIEW MEDICATIONS FOR INTERACTIONS, EFFECTIVENESS OF DRUG THERAPY, AND SIGNS/SYMPTOMS OF ADVERSE REACTIONS. MAY INSTRUCT AND REINFORCE MEDICATION TEACHING RELATED TO THE USE OF MEDICATIONS, DOSAGE, FREQUENCY, PURPOSE, SIDE EFFECTS, AND TO REPORT COMPLICATIONS.] Future Scheduled Test RESPIRATOR Y SYSTEM MANAGEMENT; RN TO ASSESS AND TEACH, HOT ROLL INSPECTOR/MEETING PLANNER TO OBSERVE AND TEACH RELATED TO ALTERED RESPIRATORY STATUS TO MINIMIZE COMPLICATIONS AND REDUCE HOSPITALIZATION. [code = RESPIRATORY SYSTEM MANAGEMENT; RN TO ASSESS AND TEACH, HOT ROLL INSPECTOR/MEETING PLANNER TO OBSERVE AND TEACH RELATED TO ALTERED RESPIRATORY STATUS TO MINIMIZE COMPLICATIONS AND REDUCE HOSPITALIZATION.] Future Scheduled Test PNEUMONIA MANAGEMENT; RN TO ASSESS AND TEACH, HOT ROLL INSPECTOR/MEETING PLANNER TO OBSERVE AND TEACH SIGNS OF PNEUMONIA EXACERBATION AND PROVIDE EARLY INTERVENTIONS TO MINIMIZE RISK OF HOSPITALIZATION. [code = PNEUMONIA MANAGEMENT; RN TO ASSESS AND TEACH, HOT ROLL INSPECTOR/MEETING PLANNER TO OBSERVE AND TEACH SIGNS OF PNEUMONIA EXACERBATION AND PROVIDE EARLY INTERVENTIONS TO MINIMIZE RISK OF HOSPITALIZATION.] Future Scheduled Test COVID-19 P OSITIVE/SYMPTOMATIC MANAGEMENT; RN TO ASSESS AND TEACH, HOT ROLL INSPECTOR/MEETING PLANNER TO OBSERVE AND TEACH SIGNS OF COVID-19 AND PROVIDE EARLY INTERVENTIONS TO MINIMIZE RISK OF HOSPITALIZATION. [code = COVID-19 POSITIVE/SYMPTOMATIC MANAGEMENT; RN TO ASSESS AND TEACH, HOT ROLL INSPECTOR/MEETING PLANNER TO OBSERVE AND TEACH SIGNS OF COVID-19 AND PROVIDE EARLY INTERVENTIONS TO MINIMIZE RISK OF HOSPITALIZATION.] Future Scheduled Test FALL REDUC TION MANAGEMENT; RN TO ASSESS AND OBSERVE, HOT ROLL INSPECTOR/MEETING PLANNER TO OBSERVE FALL RISK FACTORS AND EDUCATE PATIENT/CAREGIVER ON STRATEGIES TO MINIMIZE THE RISK OF FALLING. [code = FALL REDUCTION MANAGEMENT; RN TO ASSESS AND OBSERVE, HOT ROLL INSPECTOR/MEETING PLANNER TO OBSERVE FALL RISK FACTORS AND EDUCATE PATIENT/CAREGIVER ON STRATEGIES TO MINIMIZE THE RISK OF FALLING.] Future Scheduled Test PHYSICAL T HERAPIST TO EVALUATE FOR EVALUATION AND TREATMENT [code = PHYSICAL THERAPIST TO EVALUATE FOR EVALUATION AND TREATMENT] Future Scheduled Test OCCUPATION AL THERAPIST TO EVALUATE FOR EVALUATION AND TREATMENT [code = OCCUPATIONAL THERAPIST TO EVALUATE FOR EVALUATION AND TREATMENT] Future Scheduled Test PRN VISITS ; NUMBER OF RN/HOT ROLL INSPECTOR/MEETING PLANNER VISITS: 2 RN/HOT ROLL INSPECTOR/MEETING PLANNER TO PERFORM: MEDICATION EDUCATION AND DISEASE MANAGEMENT FOR THE FOLLOWING REASONS: MEDICATION CONCERNS, WEAKNESS, OR SOB [code = PRN VISITS; NUMBER OF RN/HOT ROLL INSPECTOR/MEETING PLANNER VISITS: 2 RN/HOT ROLL INSPECTOR/MEETING PLANNER TO PERFORM: MEDICATION EDUCATION AND DISEASE MANAGEMENT FOR THE FOLLOWING REASONS: MEDICATION CONCERNS, WEAKNESS, OR SOB] Goal Patient Goal - PRIOR LEVEL O F FUNCTIONING Goal Provider Goal - A PLAN OF CARE WILL BE ESTABLISHED THAT MEETS THE PATIENT S NEEDS. PATIENT WILL DEMONSTRATE OXYGEN SATURATION WITHIN NORMAL LIMITS OR PATIENT S OPTIMAL LEVEL ESTABLISHED BY THE PHYSICIAN THROUGHOUT CARE. CHANGES TO CO-MORBID CONDITIONS AND ANY NEW CONDITIONS WILL BE IDENTIFIED AND REPORTED TO THE PHYSICIAN. Goal Provider Goal - PATIENT/CAREGIVER TO VERBALIZE, AND CONSISTENTLY DEMONSTRATE EFFECTIVE, SAFE MANAGEMENT OF MEDICATION INCLUDING KNOWLEDGE OF EFFECTIVENESS, POTENTIAL SIDE EFFECTS AND DRUG REACTIONS AND WHEN TO CONTACT THE APPROPRIATE CARE PROVIDER. PATIENT/CAREGIVER WILL BE ABLE TO VERBALIZE UNDERSTANDING OF MEDICATION REGIMEN AND ACCURATELY TAKE MEDICATIONS PRESCRIBED WITHOUT ADVERSE EFFECTS BY EOE. Goal Provider Goal - PATIENT / CAREGIVER WILL VERBALIZE/DEMONSTRATE UNDERSTANDING OF MEASURES TO MANAGE ALTERED RESPIRATORY STATUS BY END OF EPISODE. Goal Provider Goal - PATIENT / CAREGIVER WILL VERBALIZE/DEMONSTRATE AN ABILITY TO ADHERE TO PNEUMONIA SELF-MANAGEMENT TO MINIMIZE COMPLICATIONS AND AVOID HOSPITALIZATION BY END OF EPISODE. Goal Provider Goal - PATIENT / CAREGIVER WILL VERBALIZED/DEMONSTRATED AN ABILITY TO ADHERE TO COVID-19 SELF-MANAGEMENT TO MINIMIZE COMPLICATIONS AND AVOID HOSPITALIZATION BY END OF EPISODE. Goal Provider Goal - PATIENT/CAREGIVER WILL VERBALIZE/DEMONSTRATE UNDERSTANDING OF FALL RISK FACTORS AND IMPLEMENT STRATEGIES TO MINIMIZE FALL RISK. PATIENT/CAREGIVER WILL VERBALIZE/DEMONSTRATE AN ABILITY TO ADHERE TO FALL REDUCTION SELF-MANAGEMENT AND LIFE-STYLE CHANGES BY EOE. Goal Provider Goal - Goal Provider Goal - Goal Provider Goal - Progress Notes Progress Notes <paragraph>[Visit Date: 2024 by LAILA KUNZ RN]:</paragraph><paragraph>PT IS AN 84 YEAR OLD MALE RESIDING AT HOME WITH SPOUSE. HE IS ALERT AND ORIENTED X4. PT IS COMING ON HOME HEALTH SERVICES AFTER RECENT HOSPITALIZATION WITH COVID-19 PNEUMONIA HAVING GENERALIZED WEAKNESS AND FATIGUE. PT MEDICAL DX INCLUDES CKD IV, GOUT, DM II, OSTEOARTHRITIS, SPINAL STENOSIS, ANEMIA, HTN, AND HLD. PT PREVIOUS LEVEL OF FUNCTIONING WAS INDEPENDENT WALKING IN THE HOME IN ALL ADLS. HIS CURRENT LEVEL OF FUNCTIONING IS NEEDING SUPERVISORY ASSISTANCE WITH ADLS FOR MEAL PREP, SHOPPING, DRESSING, AND AMBULATION FOR SAFETY DUE TO GENERALIZED WEAKNESS AND NEED TO AMULATE WITH WALKER. PT HTN ELEVATED WITH NEW DOSES OF HYDRALAZINE AND LABETOLOL TO HELP GET HIS HTN UNDER CONTROL. PT HAS FOLLOW UP APPT WITH PCP ON 03/10/25 AND WITH NEPHROLOGY ON 03/25/25. </paragraph><paragraph>PT ASSESSMENT PT ALERT AND ORIENTED X4. PT DENIES PAIN BUT STATES HE HAS A SORE THROAT. PT THROAT SLIGHT REDDENING IN THE BACK ON THE RIGHT SIDE. PT STATES HE CAN EAT FOOD WITHOUT ISSUE BUT HE HAS NOTICED THE SORENESS SINCE THE ILLNESS. PT LUNG SOUND CLEAR UPPER AND DIMINISHED LOWER LOBES. PT HEART SOUNDS REGULAR. PT ABDOMEN SOFT NON TENDER WITH ACTIVE BOWEL SOUNDS X4. PT SKIN INTACT. PT HAS PREVIOUS HISTORY OF FALLS IN THE HOUSE X2. PT IS CURRENTLY AMBULATING WITH WALKER AND HAS AN UNSTEADY GAIT. PT IS SUPERVISING WHILE HE IS AMBULATING AND WITH [facility].</paragraph><paragraph>PLAN OF CARE REVIEWED FOR HOME HEALTH SERVICES WITH PATIENT. PT EDUCATED ON MEDICATION MANAGEMENT, WHEN TO CALL HOME HEALTH, DISEASE MANAGEMENT, INFECTION CONTROL WITH HAND HYGIENE. PT VERBALIZED UNDERSTANDING AND HAD NO FURTHER QUESTIONS AT THIS TIME.</paragraph> Encounters Start Date/Time End Date/Time Encounter Type Admission Type Attending [facility] [place] Facility Care Department Encounter ID Discharge Date Discharge Status Discharge Condition Discharge Reason Percent Goals Met 2025-02-25 00:00:00 2025-04-25 00:00:00 Outpatient NEW ADMISSION YOKASTA EATON [facility] [id number] 20.00
== END 2025-02-27 07:57 | disposition home or self-care (01) ==
PROVIDERS: PCP Emergency Medicine; Visit Provider Internal Medicine Nephrology
DX: E78.5 Hyperlipidemia, unspecified (principal); E55.9 Vitamin D deficiency, unspecified; N18.4 Chronic kidney disease, stage 4 (severe); E11.22 Type 2 diabetes mellitus with diabetic chronic kidney disease; N17.9 Acute kidney failure, unspecified
CPT/HCPCS: 36415; 80053; 80061; 82043; 82306; 82570; 83036; 83970; 84100; 84156; 85027

== ENCOUNTER 2025-04-12 04:39 | Inpatient (IN) | payer MEDICARE, SELFPAY ==
[2025-04-12] VITALS (29 sets, daily range): BP systolic 147–211; BP diastolic 70–111; PULSE 70–103; RESP 12–22; TEMP 36.4–36.7; O2SAT 93–100; BMI 21.2
--- NOTE | ~2025-04-12 | CT_ITS ---
CTA NECK, CTA HEAD Clinical History: cva Comparison: Noncontrast CT head TECHNIQUE: Helical images thoracic inlet to vertex IV contrast information not listed in PACS Coronal, sagittal reformats. Multi planar MIPS CT images acquired with automatic exposure control for dose reduction DLP: 1025 mGy-cm Findings: NASCET Criteria utilized CTA NECK Aortic arch: No aneurysm or dissection. Great vessel origins: No stenosis. CCAs: No stenosis. Cervical ICAs: No stenosis. Vertebral Arteries: Patent. Calcifications V4 segments. Lung Apices: Mild bronchiolitis. Thyroid: Unremarkable. Nodes: No enlarged nodes. Bones: Type II odontoid fracture. Esophageal wall thickening. CTA HEAD: Aneurysms: None. Intracranial ICAs: Patent. Cavernous segments calcifications. ACAs and their distal branches: Patent, unremarkable. A-Comm: Identified. Patent, unremarkable. MCAs and their distal branches: Patent, unremarkable. Basilar artery: Patent, unremarkable. blood bank attendant and their distal branches: Patent, unremarkable. P-Comms: Neither side identified. Findings relayed via telephone by myself to Dr. Beltrán in the ED at 8:17 AM EST. IMPRESSION: CTA NECK: 1. Type II odontoid fracture. 2. No acute cervical arterial abnormality. 3. Mild esophageal wall thickening. 4. Lung apices with mild bronchiolitis. CTA HEAD: 1. No acute findings. Reviewed, dictated and finalized at location R.
--- NOTE | ~2025-04-12 | US_ITS ---
EXAMINATION: US venous doppler UChacha RANDALL, 04/22/2025 15:40 CDT HISTORY: LUE edema Comparison: None Technique: Multiple suárez scale and color Doppler sonographic images were obtained of the internal jugular, subclavian, axillary, brachial, basilar, radial and ulnar veins. Findings: Venous System:Normal flow, augmentation and compressibility. No echogenic thrombus identified. Soft tissues: Soft tissues are unremarkable. Impression: Negative for DVT. Reviewed, dictated and finalized at location P. Impression: Negative for DVT.
--- NOTE | ~2025-04-12 | XR_ITS ---
MODIFIED ESOPHAGRAM HISTORY: Witnessed choking episode TECHNIQUE: Modified barium esophagram was performed on 04/17/2025. I administered fluoroscopy and performed the exam with speech pathologist. Patient was seated for lateral fluoroscopic imaging for ingestion of thin liquids, pudding, solids and quantified amounts, followed by thin liquids in uncontrolled amounts. This was recorded on tape. A single fluoroscopic spot image was also recorded. The DAP for this procedure was 1.498 Gycm2. The amount of fluoroscopy time used during this procedure was 2.5 minutes. FINDINGS: Oral stage: Adequate function. Pharyngeal stage: Reduced laryngeal elevation and adduction. Reduced tongue base retraction and pharyngeal squeeze. There is vallecular and piriform sinus residue. There is laryngeal penetration with aspiration. Cricopharyngeal dysfunction. Cervical/esophageal stage: Adequate function. IMPRESSION: Pharyngeal dysphagia with laryngeal penetration with aspiration. Please correlate with speech pathologist findings and specific feeding recommendations. Reviewed, dictated and finalized at location A. IMPRESSION: Pharyngeal dysphagia with laryngeal penetration with aspiration. P lease correlate with speech pathologist findings and specific feeding recommend ations.
--- NOTE | ~2025-04-12 | XR_ITS ---
XR abdomen gastric tube insert INDICATION:. 84 years Male verify NGT placement COMPARISON: None FINDINGS: A single view of the chest demonstrates normal heart size. The lungs are clear. Enteric tube terminates in the stomach but the sidehole is at the GE junction and advancement is recommended. IMPRESSION: Enteric tube terminates in the stomach but the sidehole is at the GE junction and advancement is recommended Reviewed, dictated and finalized at location S. IMPRESSION: Enteric tube terminates in the stomach but the sidehole is at the GE junction a nd advancement is recommended
--- NOTE | ~2025-04-12 | MR_ITS ---
EXAMINATION: MR brain/brain stem wo/w con DATE: 04/13/2025 13:21 INDICATION: New onset seizure. TECHNIQUE: Magnetic resonance imaging (MRI) of the brain and brainstem was performed without and with 11 mL MultiHance intravenous contrast. COMPARISON: Head CT 04/12/2025 FINDINGS: There are scattered areas of nonspecific increased T2-weighted signal intensity in the cerebral white matter. 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 There is no intracranial hemorrhage, acute infarction, or abnormal intracranial mass lesion. The ventricles are normal in size. There are likely changes of ocular lens replacement surgeries. There is mild mucosal thickening in the paranasal sinuses. There is a trace right mastoid effusion. There are changes of anterior fusion procedure at C3-C4. There is a fracture of the base of the dens with 2 mm distraction. IMPRESSION: 1. 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 2. Moderate nonspecific cerebral white matter disease, which likely represents chronic small vessel ischemic disease. 3. Type II odontoid fracture. Reviewed, dictated and finalized at location E.
--- NOTE | ~2025-04-12 | XR_ITS ---
EXAMINATION: XR elbow LT 2V, 04/15/2025 14:01 CDT HISTORY: pain COMPARISON: No comparisons available. Findings: No acute fracture or malalignment. Severe degenerative changes Soft tissues unremarkable. Impression: No acute fracture or malalignment. Reviewed, dictated and finalized at location P. Impression: No acute fracture or malalignment.
--- NOTE | ~2025-04-12 | XR_ITS ---
EXAMINATION: XR chest 1V portable 04/13/2025 11:42 INDICATION: Shortness of breath. TECHNIQUE:A single AP semiupright frontal portable image of the chest was obtained. COMPARISON: 02/18/2025 FINDINGS: Cardiomediastinal silhouette is mildly enlarged. Cervical hardware is noted. No pneumothorax. No pleural effusion. No free air under the diaphragm. Small interstitial and airspace opacities scattered throughout both lungs, more prominent on the left. IMPRESSION: 1: Small interstitial and airspace opacities scattered throughout both lungs, more prominent on the left. Differential includes but is not limited to edema or pneumonia. Recommend follow-up to resolution. Reviewed, dictated and finalized at location Q. IMPRESSION: 1: Small interstitial and airspace opacities scattered throughout both lungs, m ore prominent on the left. Differential includes but is not limited to edema or pneumonia. Recommend follow-up to resolution.
--- NOTE | ~2025-04-12 | CT_ITS ---
CT HEAD NON-CONTRAST Clinical History: seizure Comparison: None Technique: Unenhanced axial images skull base to vertex Coronal, sagittal reformats CT images acquired with automatic exposure control for dose reduction DLP: 681 mGy-cm Findings: Age-related atrophy. Chronic white matter microvascular ischemic changes. Sulci, ventricles: Unremarkable. No intracerebral hemorrhage. No evidence acute territorial infarct. No mass effect, midline shift. Bony calvarium intact. Visualized paranasal sinuses: Clear. Mastoid air cells: Clear. IMPRESSION: 1. No acute intracranial findings. Reviewed, dictated and finalized at location R.
--- NOTE | 2025-04-12 04:50 | ECG_ITS ---
Test Date: 2025-04-12 05:23:14 Measurements Intervals [place] Rate: 80 P: 71 OR: 230 QRS: -44 QRSD: 96 T: 47 QT: 417 QTc: 482 Interpretive Statements SINUS RHYTHM WITH FIRST DEGREE AV BLOCK LEFT AXIS DEVIATION BASELINE ARTIFACT- I, II, III, AVR, AVL, AVF, V1-V6 BORDERLINE ECG Compared to ECG 02/17/2025 17:41:27 First degree AV block now present Electronically Signed On 04-12-2025 08:42:02 CDT by Dirk Travis D.O.
[2025-04-12] MEDS: MIDAZOLAM HCL (*CRX) 2 MG/2 ML VIAL IV PUSH ×2 (05:09→07:15)
--- NOTE | 2025-04-12 05:09 | PC.NURSE ---
VORB to given 4mg versed IVP before ct scan, Med given at 0445.
[2025-04-12 05:17] LABS: Hematocrit 31.5 % (42.0-52.0); Hemoglobin 10.3 g/dL (14.0-18.0); Immature Granulocyte Percent A 0.2 % (0-0.5); Lymphocytes Absolute Auto 2.62 K/mm3 (0.9-3.2); Mean Corpuscular HGB Conc 32.7 g/dl (32-36); Mean Corpuscular Hemoglobin 32.2 pg (26-34); Mean Corpuscular Volume 98.4 fl (80-100); Nucleated Red Blood Cells Absolute Auto 0.000 K/mm3 (0.0-0.012); Nucleated Red Blood Cells Perc 0.0 % (0.0-0.2); Platelet Count Result 238 k/mm3 (150-375); Red Blood Count 3.20 M/mm3 (4.6-6.20); White Blood Count 8.3 K/mm3 (4.5-10.0)
--- NOTE | 2025-04-12 05:22 | PC.NURSE ---
ERP notified of NIH scale.
[2025-04-12 05:30] LABS: INR 1.1; Prothrombin Time 14.6 Seconds (11.1-14.7)
[2025-04-12 05:38] LABS: Troponin I 0.012 ng/mL (0.000-0.034)
--- NOTE | 2025-04-12 05:53 | PC.NURSE ---
Patient becoming agitated and pulling at lines and monitoring equipment, patient withdraws to light pain at this time. Patient not able to open eyes on his own, maintaining airway. This RN placed purewick and patient immediately pulled it off.
[2025-04-12] MEDS: diazePAM INJ (*CRX) 10 MG/2 ML SYRINGE 5 MG IV PUSH ×2 (05:56→13:37)
[2025-04-12] MEDS: SODIUM CHLORIDE 0.9% IV 1,000 ML 150 ML IV CONT (05:57)
--- NOTE | 2025-04-12 06:01 | PC.NURSE ---
Patients states patient is a daily chronic drinker but has not stopped drinking and last drink was before bed as usual.
--- NOTE | 2025-04-12 06:07 | ED.NEUROSD ---
HPI - Neuro Symptoms/Deficit General Chief Complaint: Suspected CVA Stated Complaint: AMS, SEIZURE ACTIVITY Time Seen by Provider: 04/12/25 04:46 Source: patient Mode of arrival: ambulatory Limitations: no limitations History of Present Illness HPI Narrative: 84-year-old with a history of hypertension, hyperlipidemia, CKD was brought in with altered mental status/seizure disorder which is sudden onset. Patient who states that he started shaking on the bed and was not responding. Upon EMS arrival patient was having seizure like activity and was in a postictal state at the time he came to the ER patient was extremely restless not obeying verbal commands, his pupils were unequal. Timing confirmed by: spouse Severity: moderate Relieving factors: none Exacerbating factors: none Context: sudden onset Related Data Home Medications ?Medication ?Instructions ?Recorded ?Confirmed ?Last Taken ?Type magnesium 250 mg tablet 250 mg PO .3 times weekly 12/03/23 03/25/25 02/12/24 History Allergies Allergy/AdvReac Type Severity Reaction Status Date / Time allopurinol Allergy Unknown Skin Verified 03/04/25 11:37 Reaction diclofenac Allergy Unknown Pt doesn't Verified 03/04/25 11:37 know doxycycline Allergy Unknown hands Verified 03/04/25 11:37 probenecid Allergy Unknown Skin Verified 03/04/25 11:37 Reaction Review of Systems Review of Systems: All systems reviewed & are unremarkable except as noted in HPI and below ROS unobtainable: Yes unobtainable due to mental status PMFSH Past Medical History Medical History Mixed hyperlipidemia NANDINI (acute kidney injury) Pneumonia Fluid overload Epistaxis r nares no bleeding site seen Gout, unspecified Gout CKD (chronic kidney disease) stage 4, GFR 15-29 ml/min Osteoarthrosis, localized, primary, involving lower leg Osteoarthrosis, localized, primary, involving hand Benign hypertension Atherosclerosis of aorta Lumbar stenosis Anemia in chronic kidney disease Diabetes mellitus Now diet controlled but required medications in the past Malignant neoplasm of prostate Surgical History Surgical History H/O cataract extraction History of appendectomy H/O laminectomy C3-C4 History of carpal tunnel release History of repair of rotator cuff H/O arthroscopy of knee Family History Family History Mother Hypertension, Onset Age: 72 Father Malignant neoplasm of prostate, Onset Age: 76 Social History Social History Social History: Caffeine- coffee Smoking packs per day: 1 Smoking cigarettes per day: 20.0 Years smoked: 40 Smoking pack-years: 40.00 Smoking status: Former smoker Tobacco type: cigarettes Second hand tobacco smoke exposure: No Additional smoking assessment comments: pt states haven't smoked in over 50 years Alcohol intake: current Drinks per week: 12 Substance use: never Substance use type: does not use Do You Feel Safe in your Home?: Yes Lack of Transportation: No Lack of Food: Never True Current Housing: I Have Housing Concerned About Future Housing: No Difficulty Paying Gas/Electric Bills: No Difficulty Paying for Meds: No Currently Unemployed: No Education: Associate Degree Difficulty w/ Childcare or Family Care: No Gender identity (if verbalized by the patient): Male Spiritual care concerns: No Exam Narrative: GENERAL: Agitated, well-nourished, and in no acute distress. HEAD: Normocephalic, atraumatic. EYES: Unequal pupil bigger on the left right ENT: Nares clear, no rhinorrhea or epistaxis. Mucous membranes moist. NECK: Supple. CHEST: Clear to auscultation. No respiratory distress. HEART: Regular rate and rhythm. No murmur heard. Normal peripheral pulses. ABDOMEN: Soft, nontender, nondistended, normal active bowel sounds. EXTREMITIES: Normal range of motion. No edema. SKIN: Warm, dry, no rash. NEURO: No focal deficits. Restless moving all over PSYCH: Course Course Emergency Course: Patient was given Versed and later taken to CT scan CT scan the not show any evidence of of acute stroke or bleed. Informed patient and about the lab work, CT findings will admit to the hospital Vital Signs Vital signs: Vital Signs Temperature 36.7 C 04/12/25 04:41 Pulse Rate 86 04/12/25 04:41 Respiratory Rate 18 04/12/25 04:41 Blood Pressure 191/93 H 04/12/25 04:41 Pulse Oximetry 100 04/12/25 04:41 Oxygen Delivery Room Air 04/12/25 04:41 Temperature 36.7 C 04/12/25 04:41 Pulse Rate 83 04/12/25 05:15 Respiratory Rate 18 04/12/25 05:15 Blood Pressure 189/80 H 04/12/25 05:15 Pulse Oximetry 97 04/12/25 05:17 Oxygen Delivery Nasal Cannula 04/12/25 05:17 Oxygen Flow Rate 2 04/12/25 05:17 MDM - Neuro Symptoms/Deficit Differential Diagnosis Differential diagnosis: Likely convulsions, delirium, cerebrovascular accident and transient cerebral ischemia Medical Records Attestation: I reviewed the patient's medical records. Lab Data Attestation: I reviewed the patient's lab results. 04/12/25 05:10 Labs: Lab Results 04/12/25 04/12/25 04/12/25 Range/Units 05:10 05:11 05:43 WBC 8.3 (4.5-10.0) K/mm3 RBC 3.20 L (4.6-6.20) M/mm3 Hgb 10.3 L (14.0-18.0) g/dL Hct 31.5 L (42.0-52.0) % MCV 98.4 (80-100) fl MCH 32.2 (26-34) pg MCHC 32.7 (32-36) g/dl RDW 14.2 (11.5-14.5) % Plt Count 238 (150-375) k/mm3 MPV 10.2 (7.4-10.4) fl Immature Gran % (Auto) 0.2 (0-0.5) % Neut % (Auto) 48.5 (45.5-73.1) % Lymph % (Auto) 31.5 (18.3-44.2) % [place] % (Auto) 9.0 H (2.6-8.5) % Eos % (Auto) 9.7 H (0-4.4) % Baso % (Auto) 1.1 (0.2-1.2) % Lymph # (Auto) 2.62 (0.9-3.2) K/mm3 [place] # (Auto) 0.8 H (0.1-0.6) K/mm3 Eos # (Auto) 0.8 H (0-0.3) K/mm3 Baso # (Auto) 0.1 (0.0-0.1) K/mm3 Abs Immat Gran (auto) 0.02 (0.00-0.031) K/mm3 Absolute Neuts (auto) 4.0 (1.3-6.7) K/mm3 Absolute Nucleated RBC 0.000 (0.0-0.012) K/mm3 Nucleated RBC % 0.0 (0.0-0.2) % PT 14.6 (11.1-14.7) Seconds INR 1.1 Lactic Acid 1.9 (0.7-2.0) mmol/L Troponin I 0.012 (0.000-0.034) ng/mL Urine Color Urine Appearance Urine pH Ur Specific [place] Urine Protein Urine Glucose (UA) Urine Ketones Ur Blood (Man) Urine Nitrate Urine Bilirubin Urine Urobilinogen Leukocyte Esterase Rfl Urine Opiates Screen Urine Methadone Screen Ur Barbiturates Screen Ur Phencyclidine Scrn Ur Amphetamine Screen U Benzodiazepines Scrn Urine Cocaine Screen U Cannabinoids Screen Ethyl Alcohol < 10 (<10) mg/dL 04/12/25 Range/Units 05:56 WBC (4.5-10.0) K/mm3 RBC (4.6-6.20) M/mm3 Hgb (14.0-18.0) g/dL Hct (42.0-52.0) % MCV (80-100) fl MCH (26-34) pg MCHC (32-36) g/dl RDW (11.5-14.5) % Plt Count (150-375) k/mm3 MPV (7.4-10.4) fl Immature Gran % (Auto) (0-0.5) % Neut % (Auto) (45.5-73.1) % Lymph % (Auto) (18.3-44.2) % [place] % (Auto) (2.6-8.5) % Eos % (Auto) (0-4.4) % Baso % (Auto) (0.2-1.2) % Lymph # (Auto) (0.9-3.2) K/mm3 [place] # (Auto) (0.1-0.6) K/mm3 Eos # (Auto) (0-0.3) K/mm3 Baso # (Auto) (0.0-0.1) K/mm3 Abs Immat Gran (auto) (0.00-0.031) K/mm3 Absolute Neuts (auto) (1.3-6.7) K/mm3 Absolute Nucleated RBC (0.0-0.012) K/mm3 Nucleated RBC % (0.0-0.2) % PT (11.1-14.7) Seconds INR Lactic Acid (0.7-2.0) mmol/L Troponin I (0.000-0.034) ng/mL Urine Color Pending Urine Appearance Pending Urine pH Pending Ur Specific [place] Pending Urine Protein Pending Urine Glucose (UA) Pending Urine Ketones Pending Ur Blood (Man) Pending Urine Nitrate Pending Urine Bilirubin Pending Urine Urobilinogen Pending Leukocyte Esterase Rfl Pending Urine Opiates Screen Pending Urine Methadone Screen Pending Ur Barbiturates Screen Pending Ur Phencyclidine Scrn Pending Ur Amphetamine Screen Pending U Benzodiazepines Scrn Pending Urine Cocaine Screen Pending U Cannabinoids Screen Pending Ethyl Alcohol (<10) mg/dL Imaging Data Radiologist's impression: CT her head there is no evidence of acute intracranial hemorrhage no mass effect or midline shift ventricles volumes are within normal limits for the age no abnormal extra-axial fluid collection mild small vessel ischemic changes mild cerebral atrophy no acute osseous abnormality CTA shows no evidence of intracranial arterial occlusion or significant stenosis no evidence of intracranial aneurysm CTA of the neck shows no evidence of extra cranial arterial occlusion or high-grade stenosis ECG Data EKG #1: ECG completion date: 04/12/25 ECG completion time: 05:23 EKG Interpretation: normal rate (80), no ectopy, no ST changes, normal QRS and left axis Discharge Plan Discharge Clinical Impression: Seizure AMS (altered mental status) Qualifiers: Altered mental status type: unspecified Qualified Code(s): R41.82 - Altered mental status, unspecified CKD (chronic kidney disease) stage 3, GFR 30-59 ml/min Qualifiers: Chronic kidney disease stage 3 subtype: unspecified whether 3a or 3b Qualified Code(s): N18.30 - Chronic kidney disease, stage 3 unspecified Patient Disposition: Still a Patient Condition: Stable Patient Language: Wolof Prescriptions: No Action magnesium 250 mg tablet 250 mg PO .3 times weekly Patient Comments: administer sunday, , and sunday febuxostat 80 mg tablet 80 mg PO DAILY Qty: 90 1RF furosemide 40 mg tablet See Rx Instructions .ROUTE .COMPLEX Qty: 90 2RF Dose Instruction: TAKE 1 TABLET BY MOUTH EVERY DAY Rx Instructions: TAKE 1 TABLET BY MOUTH EVERY DAY simvastatin 40 mg tablet See Rx Instructions .ROUTE .COMPLEX Qty: 90 2RF Dose Instruction: TAKE 1 TABLET BY MOUTH EVERY DAY Rx Instructions: TAKE 1 TABLET BY MOUTH EVERY DAY labetalol 100 mg tablet See Rx Instructions .ROUTE .COMPLEX Qty: 180 2RF Dose Instruction: TAKE 1 TABLET BY MOUTH TWICE A DAY Rx Instructions: TAKE 1 TABLET BY MOUTH TWICE A DAY Follow-up/Referrals: Yayo Thomas MD [Primary Care Provider, Internal Medicine] Time of Disposition: 06:30
[2025-04-12 06:10] LABS: Add Urine Microscopic? YES; Appearance Urine Clear (Clear); Glucose Urine UA Trace mg/dL (Negative); Leukocyte Esterase Ur Negative LEU/UL (Negative); Nitrate Urine Negative (Negative); Non Pathogenic Casts 0-2; Specific Grav Ur 1.015 (1.001-1.035)
[2025-04-12 06:24] LABS: Cannabinoid Screen Urine Negative (Negative)
[2025-04-12 06:27] LABS: Alanine Aminotransferase 24 U/L (6-50); Albumin Level 4.1 g/dL (3.5-5.1); Alkaline Phosphatase 74 U/L (38-126); Anion Gap 16 mmol/L (4-12); Aspartate Amino Transferase 40 U/L (17-59); Bilirubin,Total 0.5 mg/dL (0.2-1.3); Blood Urea Nitrogen 55 mg/dL (9-20); Calcium 9.4 mg/dL (8.4-10.2); Carbon Dioxide 15 mmol/L (22-30); Chloride 107 mmol/L (98-107); Estimated CRCL calculation 13 ml/min; Estimated Glomerular Filt Rate 19; Glucose 120 mg/dL (65-110); Potassium 4.3 mmol/L (3.4-5.0); Sodium 138 mmol/L (137-145); Total Protein 7.7 g/dL (6.3-8.2)
--- NOTE | 2025-04-12 07:20 | PC.NURSE ---
Report given to SHIELA Arreguin.
--- NOTE | 2025-04-12 08:18 | PC.NURSE ---
Hewitt c-collar applied.
[2025-04-12] MEDS: OLANZapine 10 MG, WATER, STERILE FOR INJECTION 2.1 ML IM (08:50)
--- NOTE | 2025-04-12 08:59 | PC.NURSE ---
Pt confused, agitated trys to get out of bed, kicking and puling off all the monitors off.
--- NOTE | 2025-04-12 10:27 | P.HP_ITS ---
H&P: HPI History of Present Illness Date/Time: 04/12/25 10:27 Chief Complaint: ams, seizure like activity, possible cva Narrative: 84-year-old male with PMH/of HTN, hyperlipidemia, CKD was brought in with altered mental status/seizure disorder which is sudden onset. Patient who states that he started shaking on the bed and was not responding. Upon EMS arrival patient was having seizure like activity and was in a postictal state at the time he came to the ER patient was extremely restless not obeying verbal commands, his pupils were unequal. ER: ua collected-pending, urine tox screen-negative, WBC 8.3, hg/hct 10.3/31.5, plt 238. lactic 1.9, Na 138, K 3.8, cr 3.08, bun 55 (cr previously was in this range as well). hga1c was checked on 02/27/25 -6.1. liver enzymes wnl. IMPRESSION: CTA NECK: 1. Type II odontoid fracture. 2. No acute cervical arterial abnormality. 3. Mild esophageal wall thickening. 4. Lung apices with mild bronchiolitis. CTA HEAD: 1. No acute findings. - CT cervical spine- type 2 odontoid fracture. Patient was placed in an a [place] collar. Neurology was consulted. It looks like pt received midazolam 2 mg x 2 doses and diazepam 5 mg x 1 in ED. Of note, he was discharged from this hospital on 02/22/25: ......COVID pneumonia. He completed remdesivir for 4 days, azithromycin for 4 days, ceftriaxone for 5 days. Patient was also diagnosed with is NANDINI superimposed on CKD. On admission creatinine was 3.39, after IV fluid and encourage oral intake creatinine improved to 2.27. 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 He received IV iron for 3 days. His blood pressure was also uncontrolled. Hydralazine was increased to 75 mg t.i.d. and labetalol 125 mg b.i.d. He was instructed to monitor it and f/u with PCP. He did see his PCP on 03/10 but it doesnot appear that it was addressed. He also saw his nephrology dr, DR Travis on 03/25/25. That visit, his BP was 100/58. DR Serrano note: Low normal. Advise to maintain a low sodium diet. Stop Hydralazine. Check BP at home and let us know if >140 SBP. F/U 6 months. 04/12 pt is seen and examined he is confused this am and pulling on tubes and lines. Sitter at the bedside. Unable to get much of history from him. No witnessed seizures so far. Neurology consulted. Review of Systems Review of Systems: unable to get much history from pt as he is confused All systems reviewed & are unremarkable except as noted in HPI and below PMFSH Past Medical History Medical History Mixed hyperlipidemia NANDINI (acute kidney injury) Pneumonia Fluid overload Epistaxis r nares no bleeding site seen Gout, unspecified Gout CKD (chronic kidney disease) stage 4, GFR 15-29 ml/min Osteoarthrosis, localized, primary, involving lower leg Osteoarthrosis, localized, primary, involving hand Benign hypertension Atherosclerosis of aorta Lumbar stenosis Anemia in chronic kidney disease Diabetes mellitus Now diet controlled but required medications in the past Malignant neoplasm of prostate Surgical History Surgical History H/O cataract extraction History of appendectomy H/O laminectomy C3-C4 History of carpal tunnel release History of repair of rotator cuff H/O arthroscopy of knee Family History Family History Mother Hypertension, Onset Age: 72 Father Malignant neoplasm of prostate, Onset Age: 76 Social History Social History Social History: Caffeine- coffee Smoking packs per day: 1 Smoking cigarettes per day: 20.0 Years smoked: 40 Smoking pack-years: 40.00 Smoking status: Former smoker Tobacco type: cigarettes Second hand tobacco smoke exposure: No Additional smoking assessment comments: pt states haven't smoked in over 50 years Alcohol intake: current Drinks per week: 14 Substance use: never Substance use type: does not use Do You Feel Safe in your Home?: Yes Lack of Transportation: No Lack of Food: Never True Current Housing: I Have Housing Concerned About Future Housing: No Difficulty Paying Gas/Electric Bills: No Difficulty Paying for Meds: No Currently Unemployed: No Education: Associate Degree Difficulty w/ Childcare or Family Care: No Gender identity (if verbalized by the patient): Male Spiritual care concerns: No Meds Home Medications and Allergies Home Medications ?Medication ?Instructions ?Recorded ?Confirmed ?Type magnesium 250 mg tablet 250 mg PO .3 times weekly 04/12/25 History febuxostat 80 mg tablet 80 mg PO DAILY #90 tabs 05/2504/12/25 Rx furosemide 40 mg tablet See Rx Instructions .Route 0 07/30/24 04/12/25 Rx Held on 02/22/25. .COMPLEX #90 tabs Instructions: Resume on 02/28/25. Talk to your information assurance manager before you restart furosemide simvastatin 40 mg tablet See Rx Instructions .Route 0 07/30/24 04/12/25 Rx .COMPLEX #90 tabs labetalol 100 mg tablet See Rx Instructions .Route 0 01/19/25 04/12/25 Rx .COMPLEX #180 tabs Allergies Allergy/AdvReac Type Severity Reaction Status Date / Time allopurinol Allergy Unknown Skin Verified 04/12/25 11:29 Reaction diclofenac Allergy Unknown Pt doesn't Verified 04/12/25 11:29 know doxycycline Allergy Unknown hands Verified 04/12/25 11:29 probenecid Allergy Unknown Skin Verified 04/12/25 11:29 Reaction Vital Signs Vital Signs - 24 hr 04/12/25 04:41 04/12/25 04:49 04/12/25 05:08 Temperature 98.1 F Pulse Rate 86 90 88 Respiratory Rate 18 19 19 Blood Pressure 191/93 H Pulse Oximetry 100 100 Oxygen Delivery Room Air Oxygen Flow Rate 04/12/25 05:10 04/12/25 05:13 04/12/25 05:13 Temperature Pulse Rate 85 85 Respiratory Rate 18 Blood Pressure 174/76 H Pulse Oximetry 98 Oxygen Delivery Nasal Cannula Oxygen Flow Rate 2 04/12/25 05:15 04/12/25 05:15 04/12/25 05:16 Temperature Pulse Rate 83 83 81 Respiratory Rate 18 22 H 17 Blood Pressure 189/80 H 189/80 H Pulse Oximetry 97 Oxygen Delivery Oxygen Flow Rate 2 04/12/25 05:17 04/12/25 05:30 04/12/25 05:45 Temperature Pulse Rate 82 88 Respiratory Rate 16 18 Blood Pressure Pulse Oximetry 97 Oxygen Delivery Nasal Cannula Oxygen Flow Rate 2 04/12/25 05:54 04/12/25 06:00 04/12/25 06:01 Temperature Pulse Rate 91 90 86 Respiratory Rate 21 H 20 15 Blood Pressure 200/92 H 208/94 H Pulse Oximetry Oxygen Delivery Oxygen Flow Rate 04/12/25 06:15 04/12/25 06:16 04/12/25 07:22 Temperature Pulse Rate 83 87 87 Respiratory Rate 16 18 20 Blood Pressure 201/81 H 197/91 H Pulse Oximetry 97 97 Oxygen Delivery Oxygen Flow Rate 04/12/25 09:00 Temperature Pulse Rate 94 Respiratory Rate 19 Blood Pressure 211/111 H Pulse Oximetry 97 Oxygen Delivery Oxygen Flow Rate 2 Exam Narrative: resting in bed, sitter at bedside Resp: Effort & Inspection: normal respiratory effort Auscultation: diminished lung sounds Cardio: Rate: tachycardic Rhythm: regular rhythm GI: GI Palp: Yes Soft to palpation Auscultation: normal bowel sounds Neuro: Other: confused this morning Psych: Affect: Anxious affect present Other: anxious and confused H&P: Results Labs Labs: Short CBC 04/12/25 Range/Units 05:10 WBC 8.3 (4.5-10.0) K/mm3 Hgb 10.3 L (14.0-18.0) g/dL Hct 31.5 L (42.0-52.0) % Plt Count 238 (150-375) k/mm3 BMP 04/12/25 05:11 Sodium 138 Potassium 4.3 Chloride 107 Carbon Dioxide 15 L BUN 55 H D Creatinine 3.08 H Glucose 120 H Calcium 9.4 Cardiac Enzymes 04/12/25 Range/Units 05:11 Troponin I 0.012 (0.000-0.034) ng/mL Liver Function 04/12/25 Range/Units 05:11 Total Bilirubin 0.5 (0.2-1.3) mg/dL AST 40 (17-59) U/L ALT 24 (6-50) U/L Alkaline Phosphatase 74 (38-126) U/L Albumin 4.1 (3.5-5.1) g/dL Urine 04/12/25 Range/Units 05:56 Urine Color Yellow (Yellow) Urine Appearance Clear (Clear) Urine pH 7.0 (5.0-9.0) Ur Specific [place] 1.015 (1.001-1.035) Urine Protein 2+ H (Negative) mg/dL Urine Glucose (UA) Trace H (Negative) mg/dL Assessment and Plan Assessment and plan (1) Anxiety: Code(s): F41.9 - Anxiety disorder, unspecified Status: Acute (2) Essential (primary) hypertension: Code(s): I10 - Essential (primary) hypertension Status: Chronic (3) Dyspnea on exertion: Code(s): R06.09 - Other forms of dyspnea Status: Acute (4) Mixed hyperlipidemia: Code(s): E78.2 - Mixed hyperlipidemia Status: Acute (5) Diabetes mellitus: Qualifiers: Chronic kidney disease stage: stage 4 (severe) Diabetes mellitus complication detail: with chronic kidney disease Diabetes mellitus complication status: with kidney complications Diabetes mellitus terminal makeup operator insulin use: without jail use Diabetes mellitus type: type 2 Qualified Code(s): E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; N18.4 - Chronic kidney disease, stage 4 (severe) Code(s): E11.9 - Type 2 diabetes mellitus without complications Status: Chronic (6) AMS (altered mental status): Qualifiers: Altered mental status type: unspecified Qualified Code(s): R41.82 - Altered mental status, unspecified Code(s): R41.82 - Altered mental status, unspecified Status: Acute (7) Seizure: Code(s): R56.9 - Unspecified convulsions Status: Acute (8) Type II fracture of odontoid process: Code(s): S12.110A - Anterior displaced Type II dens fracture, initial encounter for closed fracture Status: Acute Plan 84-year-old male with PMH/of HTN, hyperlipidemia, CKD was brought in with altered mental status/seizure disorder which is sudden onset. Patient who states that he started shaking on the bed and was not responding. Upon EMS arrival patient was having seizure like activity and was in a postictal state at the time he came to the ER patient was extremely restless not obeying verbal commands, his pupils were unequal - CT cervical spine- type 2 odontoid fracture. Patient was placed in an a [place] collar. It looks like pt received midazolam 2 mg x 2 doses and diazepam 5 mg x 1 in ED. Will add keppra IV while waiting for neurology consult monitor resp status seizure precautions check resp panel to r/u any infectious cause for seiures Home meds will be addressed once completed per nursing will add hydralazine prn for htn daily labs added unable to restart PO meds as pt is confused. will add labetolol 20 mg x 1 now and then 20 mg q2h prn for htn untill BP is improved. He may be in pain due to fracture but need to avoid oversedating to be able properly assess neurological status - will consult neurosurgery for recommendations Quality VTE Prophylaxis VTE prophylaxis: mechanical ordered Hospitalist [facility] Advance Care Plan I have confirmed that the patient's Advanced Care Plan is present, code status is documented, or surrogate decision maker is listed in patient medical record.: Yes Medication Reconciliation I have utilized all available resources to obtain, update and review the patients current medications (includes all prescriptions, OTC, herbals, cannabis, and nutritional supplements).: Yes
--- OUTSIDE RECORDS SUMMARY | 2025-04-12 10:40 | XMS_ITS | Clinical Summary ---
Author Organization [facility] Address [facility] [place] [address] Care Team Providers Care Senior Staff Accountant Name Role Phone Tete Kay MD Primary Care Provider [phone] Allergies Active Allergy Reactions Criticality Noted Date [...] (02/03/2021): Added automatically from request for surgery [id number] Anemia in chronic kidney disease 08/28/2018 Hypertensive [...] 03/04/2021 eGFR 03/04/2022 03/04/2021, 02/16/2021 Covid-19 Vaccine (2024- 6 season) 2025 03/28/2021, 09/10/2020, 08/20/2020 Influenza Vaccine (#1) 2025 , 03/18/2021, 03/18/2021, Additional history exists Pneumococcal vaccine 65+ Completed 015, 03/30/2005, 03/30/2005, Additional history exists Medical Devices Implanted Type Area Transmission Tester Device Identifier Shelf Expiration Date Model / Serial / Lot [employer] 700-025 I Factor Allograft Putty Syringe Graft 2.5cc Bone - Sna - [id number] Implanted:Qty : 1 on 03/03/2021 by Chacorta Wheeler MD at [facility] Other - see comments N/A: Spine Cervical [employer] [id number] 07/25/2023 700-025 / NA / [id number] Norbert Spine [id number] Mm X W17 Mm X H6 Mm Cervical Anterior 10 D Cage Spinal Tritanium Sterile Latex Free - Sna - [id number] Implanted:Qty : 1 on 03/03/2021 by Chacorta Wheeler MD at [facility] Other - see comments N/A: Spine Cervical [place] [employer]ine [id number] 05/31/2022 [id number] / NA / [id number] Norbert Spine [id number] Plate 20mm Bone [place] Spine Cervical 1 Level Nonsterile Latex Free - Sna - [id number] Implanted:Qty : 1 on 03/03/2021 by Chacorta Wheeler MD at [facility] Screw N/A: Spine Cervical [employer] [employer] [id number] / NA / Norbert Spine [id number] Screw 16mm 4mm Bone [place] Spine Cervical Self Start Variable Angle Nonsterile - Sna - [id number] Implanted:Qty : 3 on 03/03/2021 by Chacorta Wheeler MD at [facility] Screw N/A: Spine Cervical [employer] Spine [id number] / NA / Nor[employer] Spine [id number] zark 4.5mm 16mm Self Start Variable Angle Spine Cervical Screw - Sna - [id number] Implanted:Qty : 1 on 03/03/2021 by Chacorta Wheeler MD at [facility] Screw N/A: Spine Cervical [place] [employer] [id number] DA / NA / Procedures Procedure Name Priority Date/Time Associated Diagnosis Comments EGFR Routine 03/04/2021 3:31 AM CDT HEMOGLOBIN A1C Routine 02/16/2021 2:50 PM CDT Preoperative testing from Last 3 Months or Most Recently Relevant to Health Maintenance Results * eGFR (03/04/2021 3:31 AM CDT) Pathologist [facility] eGFR 37 mL/min/1.7 3 m2 [facility] Comment: Interpretive Data Reference Interval [...] ORDERABLES Shi l Result Performing Organization Address City/[facility]/ZIP Co de Phone Number [facility] [address] [employer]. [facility] [place] [address] * (ABNORMAL) Hemoglobin A1c (02/16/2021 2:50 PM CDT) Hgb A1C 5.9(H) 4.0 - 5.6 % REY [facility]ERRMANN Comment:Testing performed by : [facility], [address] [place] [address]., [address] Estimated Average Glucose 123 mg/dL REY [facility]MAN[facility] Comment: The ADA recommends reporting an estimated Average Glucose (eAG) with all Hemoglobin A1c results using the equation derived from a study of 507 normal and diabetic adults. Minority populations were underrepresented and children were not included. (Diabetes Care 31:8676-9348, 2008). The eAG is not equivalent to a fasting glucose. Testing performed by: [facility], [address] [place] [address]., [id number] Blood 02/16/2021 2:50 PM CDT 02/16/2021 6:00 PM CDT us Meño Arnold NP LAB BLOOD ORDERABLES Fin al Result Performing Organization Address [facility]/ZIP Co de Phone Number [facility] [address] [employer]. [facility] [place] [address] from Last 3 Months or Most Recently Relevant to Health Maintenance Insurance AETNA MCR ADV REF AETNA MCR ADV REF AETNA MCR ADV REF AETNA MCR ADV REF Advance Directives For more information, please contact: [phone] * Full Code (Latest Code Status on File) Date Activated Date Inactivated Comments 03/03/2021 7:57 PM 03/04/2021 5:47 PM Healthcare Agents on File Name Relationship Healthcare Agent [facility] p Communication Caprice Burleson Spouse Health Care Agent Care Teams Senior Staff Accountant Relationship Specialty Start Date End Date Tete Kay MD [address] [place] [address] PCP - General Family Medicine 01/04/21
--- OUTSIDE RECORDS SUMMARY | 2025-04-12 10:40 | XMS_ITS | Encounter Summary ---
Author Organization [facility] Healthcare Address [address] [place] [address] Care Team Providers Care Stable Helper Name Role Phone Tete Kay MD Primary Care Provider [phone] Encounter Details Date Type Department Care Team (Late st Contact Info) Description 01/10/2021 Telephone [facility] [address] [place] [address] Clari Syed, RT Social History Tobacco Use [...] on filedocumented in this encounter Care Teams Stable Helper Relationship Specialty Start Date End Date Tete Kay MD [address] [place] [address] PCP - General Family Medicine 01/04/21 documented as of this encounter
--- NOTE | 2025-04-12 11:29 | ADMGEN ---
This patient, Shantanu Burleson, was admitted to IMU Room 231-01 at 1108. Patient/family oriented to hospital policies and general routines including ID bracelet, bed and alarms, visiting hours, pain management, procedures, bathroom and other care routines, personal items, smoking policy, room service/diet, and visiting hours. Information on how to activate the Rapid Response Team has been discussed. Patient/Family are encouraged to report perceived risks to care and to ask questions if they do not understand what they are told or what they should do.
[2025-04-12] MEDS: levETIRAcetam 1000MG/NACL100ML 1,000 MG/100 ML BAG 400 MG IVPB (12:07)
[2025-04-12] MEDS: SODIUM CHLORIDE 0.9% IV 1,000 ML 125 ML IV CONT ×2 (12:07→18:37)
[2025-04-12] MEDS: HYDROmorphone HCL INJ (*CRX) 1 MG/ML SYR 0.5 MG IV PUSH (17:04)
[2025-04-12] MEDS: levETIRAcetam 500MG/NACL 100ML 500 MG/100 ML BAG 400 MG IVPB (21:23)
--- NOTE | 2025-04-12 21:33 | P.PNCROSS_ITS ---
Event Note Event Note Event Note: Nurse Alvin called to report neurosurgery had no in-house recommendations and advised to transfer. I evaluated the patient, he is currently resting comfortably, with his eyes closed. He is nonverbal/unresponsive, grimaces to verbal and physical stimuli. No tremors noted. He is on Keppra. MRI pending. I spoke with the patient's Caprice Burleson. Initially she did not want the patient to be transferred into the [facility], but then she tells me she does not want the patient transferred at all. She was adamant about this after lengthy discussion. She wants to have a family discussion with her children and the day hospitalist on 04/13/2025. She reports the patient is supposed to be DNR but ask we confirm with the patient's [id number] his son Shantanu Burleson III. I called the patient's son Shantanu Burleson III he confirms the patient should be DNR. Multiple family members were on the call as well, I informed them of the patient's status and all of their questions and concerns were answered to satisfaction. They will hopefully arrive in town on 04/13/2025 with MRI pending for further discussion and goals of care. Shantanu Burleson III the POA asks to be point of contact at phone [phone]. He request maybe we sedate the patient to obtain MRI due to his claustrophobia, I let him know the risk of that we will consider. Greater than 65 minutes spent on [id number] time, discussions with nursing team, and family.
[2025-04-13] VITALS (16 sets, daily range): BP systolic 155–192; BP diastolic 62–108; PULSE 72–96; RESP 12–20; TEMP 36.6–37.2; O2SAT 91–100
[2025-04-13] MEDS: SODIUM CHLORIDE 0.9% IV 1,000 ML 125 ML IV CONT ×2 (01:44→07:29)
[2025-04-13 04:26] LABS: Hematocrit 30.5 % (42.0-52.0); Hemoglobin 9.9 g/dL (14.0-18.0); Mean Corpuscular HGB Conc 32.5 g/dl (32-36); Mean Corpuscular Hemoglobin 31.9 pg (26-34); Mean Corpuscular Volume 98.4 fl (80-100); Platelet Count Result 219 k/mm3 (150-375); Red Blood Count 3.10 M/mm3 (4.6-6.20); White Blood Count 10.9 K/mm3 (4.5-10.0)
[2025-04-13 04:51] LABS: Alanine Aminotransferase 17 U/L (6-50); Albumin Level 3.6 g/dL (3.5-5.1); Alkaline Phosphatase 74 U/L (38-126); Anion Gap 15 mmol/L (4-12); Aspartate Amino Transferase 47 U/L (17-59); Bilirubin,Total 0.8 mg/dL (0.2-1.3); Blood Urea Nitrogen 47 mg/dL (9-20); Calcium 9.0 mg/dL (8.4-10.2); Carbon Dioxide 14 mmol/L (22-30); Chloride 112 mmol/L (98-107); Estimated CRCL calculation 15 ml/min; Estimated Glomerular Filt Rate 25; Glucose 77 mg/dL (65-110); Potassium 4.2 mmol/L (3.4-5.0); Sodium 141 mmol/L (137-145); Total Protein 7.0 g/dL (6.3-8.2)
[2025-04-13] MEDS: diazePAM INJ (*CRX) 10 MG/2 ML SYRINGE 5 MG IV PUSH ×3 (04:56→16:17)
[2025-04-13] MEDS: levETIRAcetam 500MG/NACL 100ML 500 MG/100 ML BAG 400 MG IVPB (08:43)
--- NOTE | 2025-04-13 08:53 | PM.IMPN ---
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: without 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 operator intermodal yard use Diabetes mellitus type: type 2 Qualified Code(s): E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; N18.4 - Chronic kidney disease, stage 4 (severe) Code(s): E11.9 - Type 2 diabetes mellitus without complications Status: Chronic (6) AMS (altered mental status): Qualifiers: Altered mental status type: unspecified Qualified Code(s): R41.82 - Altered mental status, unspecified Code(s): R41.82 - Altered mental status, unspecified Status: Acute (7) Seizure: Code(s): R56.9 - Unspecified convulsions Status: Acute (8) Type II fracture of odontoid process: Code(s): S12.110A - Anterior displaced Type II dens fracture, initial encounter for closed fracture Status: Acute Plan Patient presented with altered mental status and shaking episode on the bed. EMS was called. Patient was having seizure-like activity and was in a postictal state at the time they ride. Patient was extremely restless not obeying verbal commands. Pupils were unequal. EMS report was reviewed. Patient was not responding was found is eyes open pupils reactive responsive to pain only patient urinary himself in bed gaze was fixed to left all departing the scene patient a grand mal seizure approximately 30 seconds.. His vitals showed hypertension otherwise afebrile and oxygenation was adequate. Laboratory workup revealed hemoglobin of 10.3 WBC of 8.3 platelet of 238. INR 1.1 lactate was 1.9 troponin 0.012 ethyl alcohol level less than 10. Chem panel showed sodium 138 potassium 3.8 creatinine of 3 BUN 55 liver enzymes are normal. Head CT with no acute intracranial findings. CTA neck showed type 2 odontoid fracture. No acute cervical arterial abnormality. Mild esophageal wall thickening. Lung apices with mild bronchiolitis. CTA head with no acute findings. CT cervical spine with type 2 odontoid fracture. Patient was placed on [place] collar. Possible seizure disorder. Neurology consulted. Was started on Keppra and placed on seizure precautions. Will increase Keppra to 750 mg b.i.d. Chronic alcohol is daily chronic drinker. UDS was all negative. Alcohol level on presentation less than 10 Metabolic acidosis change fluid to bicarb CKD stage 4 baseline creatinine and bed 2s admission creatinine of 3 Mild bronchiolitis start Zosyn IV. Check chest x-ray Hyperlipidemia Osteoarthritis Gout Hypertension Lumbar stenosis Atherosclerosis of aorta Anemia chronic kidney disease Diabetes mellitus type 2 History of prostate cancer DVT prophylaxis heparin Code status do not resuscitate Discussed with at bedside. Subjective Date/time seen: 04/13/25 08:53 Interval history: No overnight events noted. Chart reviewed. Patient awake still confused and does not verbalize much. Review of Systems Review of Systems: ROS unobtainable: Yes unobtainable due to medical condition Exam Narrative: GENERAL: Intermittently agitated, well-nourished, and in no acute distress. HEAD: Normocephalic, atraumatic. EYES: Unequal pupil bigger on right than left ENT: Nares clear, no rhinorrhea or epistaxis. Mucous membranes moist. NECK: On neck collar CHEST: Coarse breath sounds bilaterally No respiratory distress. HEART: Regular rate and rhythm. No murmur heard. Normal peripheral pulses. ABDOMEN: Soft, nontender, nondistended, normal active bowel sounds. EXTREMITIES: Normal range of motion. No edema. SKIN: Warm, dry, no rash. NEURO: No focal deficits. Babinski negative PSYCH: Mildly agitated Objective Data Vital Signs Vital Signs: Vital Signs - 24 hr 04/12/25 09:00 04/12/25 11:46 04/12/25 11:59 Temperature 97.7 F Pulse Rate 94 103 H Respiratory Rate 19 Blood Pressure 211/111 H 207/94 H Pulse Oximetry 97 99 100 Oxygen Delivery Nasal Cannula Oxygen Flow Rate 2 2 04/12/25 12:00 04/12/25 13:36 04/12/25 14:00 Temperature Pulse Rate 89 94 70 Respiratory Rate Blood Pressure Pulse Oximetry Oxygen Delivery Oxygen Flow Rate 04/12/25 16:00 04/12/25 16:00 04/12/25 16:00 Temperature Pulse Rate 86 87 Respiratory Rate Blood Pressure 171/94 H Pulse Oximetry 93 Oxygen Delivery Nasal Cannula Oxygen Flow Rate 2 04/12/25 16:30 04/12/25 18:00 04/12/25 19:49 Temperature 97.6 F Pulse Rate 70 72 Respiratory Rate 13 Blood Pressure 147/105 H 194/76 H Pulse Oximetry 100 Oxygen Delivery Oxygen Flow Rate 04/12/25 20:00 04/12/25 20:00 04/12/25 22:00 Temperature Pulse Rate 72 72 74 Respiratory Rate 13 Blood Pressure Pulse Oximetry 100 Oxygen Delivery Nasal Cannula Oxygen Flow Rate 2 04/12/25 23:44 04/13/25 00:00 04/13/25 00:00 Temperature 97.6 F Pulse Rate 72 72 84 Respiratory Rate 12 12 Blood Pressure 178/70 H Pulse Oximetry 100 100 Oxygen Delivery Oxygen Flow Rate 2 04/13/25 03:52 04/13/25 08:21 Temperature 98.0 F 98.0 F Pulse Rate 86 83 Respiratory Rate 13 18 Blood Pressure 155/108 H 178/76 H Pulse Oximetry 98 100 Oxygen Delivery Oxygen Flow Rate Intake/Output Intake/Output: Intake & Output 04/10/25 04/11/25 04/12/25 04/13/25 23:59 23:59 23:59 23:59 Intake Total 912.5 1608.4 Output Total 1 Balance 912.5 1607.4 Meds/Results Medications: Active Medications Generic Name Dose Route Start Last Admin Trade Name Freq PRN Reason Stop Dose Admin Acetaminophen 650 mg 04/12/25 06:32 Acetaminophen 325 Mg Tablet PO Q4H PRN Mild Pain (1-3) or Fever Diazepam 5 mg 04/12/25 20:46 04/13/25 04:56 Diazepam Inj (*Crx) 10 Mg/2 Ml Syringe IV PUSH 5 mg Q2H PRN Administration seizure Hydralazine HCl 10 mg 04/12/25 10:27 04/12/25 12:07 Hydralazine Hcl 20 Mg/Ml Vial IV PUSH 10 mg Q8H PRN Administration Blood Pressure - High Hydromorphone HCl 0.5 mg 04/12/25 15:36 04/12/25 17:04 Hydromorphone Hcl Inj (*Crx) 1 Mg/Ml Syr IV PUSH 0.5 mg Q3H PRN Administration Pain Rated 7-10 Sodium Chloride 1,000 mls @ 125 mls/hr 04/12/25 06:35 04/13/25 07:29 Normal Saline Iv IV CONT 125 mls/hr .Q8H OLENA Administration Levetiracetam 500 mg in 100 mls @ 400 mls/hr 04/12/25 21:00 04/13/25 08:43 Keppra Iv IVPB 400 mls/hr Q12HR OLENA Administration Labetalol HCl 100 mg 04/12/25 12:45 04/12/25 21:24 Labetalol Hcl 100 Mg Tablet BY MOUTH Not Given Q12HR OLENA Labetalol HCl 20 mg 04/12/25 13:11 Labetalol Hcl Inj 100 Mg/20 Ml Vial IV PUSH Q2H PRN htn Ondansetron HCl 4 mg 04/12/25 06:32 Ondansetron Inj 4 Mg/2 Ml Vial IV PUSH Q4H PRN Nausea Simvastatin 40 mg 04/12/25 12:45 04/12/25 12:57 Simvastatin 20 Mg Tablet BY MOUTH Not Given DAILY [facility] Radiology Results: ITS Impressions Head CT 04/12/25 06:53 IMPRESSION: 1. No acute intracranial findings. Head/Neck CTA 04/12/25 07:10 IMPRESSION: CTA NECK: 1. Type II odontoid fracture. 2. No acute cervical arterial abnormality. 3. Mild esophageal wall thickening. 4. Lung apices with mild bronchiolitis. CTA HEAD: 1. No acute findings. Labs Labs: Laboratory Results - last 24 hr 04/13/25 04:15 WBC 10.9 H RBC 3.10 L Hgb 9.9 L Hct 30.5 L MCV 98.4 MCH 31.9 MCHC 32.5 RDW 14.4 Plt Count 219 MPV 9.9 Sodium 141 Potassium 4.2 Chloride 112 H Carbon Dioxide 14 L Anion Gap 15 H BUN 47 H Creatinine 2.50 H Estim Creat Clear Calc 15 Estimated GFR 25 L Glucose 77 Calcium 9.0 Total Bilirubin 0.8 AST 47 ALT 17 Alkaline Phosphatase 74 Total Protein 7.0 Albumin 3.6
[2025-04-13 09:47] LABS: Ammonia < 9 umol/L (9-30)
[2025-04-13] MEDS: PIPERACILLIN/TAZOBACTAM SOD 2.25 GM in SODIUM CHLORIDE 0.9% IV 50 ML 100 ML IVPB ×2 (10:02→17:04)
[2025-04-13] MEDS: PANTOPRAZOLE SODIUM IV 40 MG VIAL IV PUSH (10:04)
[2025-04-13] MEDS: SODIUM BICARBONATE 8.4% 150 MEQ in DEXTROSE 5% 1,000 ML 950 ML 50 MEQ IV CONT (10:50)
--- NOTE | 2025-04-13 15:06 | WPDNEUROSGCN ---
Assessment and Plan Assessment and plan (1) Type II fracture of odontoid process: Code(s): S12.110A - Anterior displaced Type II dens fracture, initial encounter for closed fracture Status: Acute Assessment and Plan: - no acute surgical intervention planned - maintain cervical collar at all times - avoid pushing/ pulling / lifting greater than 10 lb - avoid overhead activity and movements aggravate the neck - follow-up outpatient in 6 weeks with AP and lateral cervical x-rays prior to visit Discussed with Dr. Angulo, in agreement with plan Consult date: 04/13/25 HPI: Shantanu Burleson is a 84 year old male who presented to the ER via EMS on 04/12/2025 status post seizure / altered mental status. Patient had no previous history of seizure. states he was on the bed when this happened and did not sustain a fall or hit his head. She states he had a small fall a couple months ago but also did not hit his head or his neck. During workup, patient was noted to have a type 2 odontoid fracture for which Neurosurgery is consulted. The patient was placed into an [place] collar. He has a history of an ACDF C3-C4. Currently, the patient is sleeping in bed. He just had a Valium as he is about to go down for an MRI. His states that he has been sleeping all day. He has a collar on and it appears to be fitting nicely. CTA of the head and neck obtained on 04/12/2025 was reviewed. This demonstrates a type 2 odontoid fracture. The age of the fractures indeterminate but it is new since the patient's previous cervical spine MRI in 2020. No acute cervical artery abnormalities. Head CT did not demonstrate any acute findings. [facility] Past Medical History Medical History Mixed hyperlipidemia NANDINI (acute kidney injury) Pneumonia Fluid overload Epistaxis r nares no bleeding site seen Gout, unspecified Gout CKD (chronic kidney disease) stage 4, GFR 15-29 ml/min Osteoarthrosis, localized, primary, involving lower leg Osteoarthrosis, localized, primary, involving hand Benign hypertension Atherosclerosis of aorta Lumbar stenosis Anemia in chronic kidney disease Diabetes mellitus Now diet controlled but required medications in the past Malignant neoplasm of prostate Surgical History Surgical History H/O cataract extraction History of appendectomy H/O laminectomy C3-C4 0913-21 History of carpal tunnel release History of repair of rotator cuff H/O arthroscopy of knee Family History Family History Mother Hypertension, Onset Age: 72 Father Malignant neoplasm of prostate, Onset Age: 76 Social History Social History Social History: Caffeine- coffee Smoking packs per day: 1 Smoking cigarettes per day: 20.0 Years smoked: 40 Smoking pack-years: 40.00 Smoking status: Former smoker Tobacco type: cigarettes Second hand tobacco smoke exposure: No Additional smoking assessment comments: pt states haven't smoked in over 50 years Alcohol intake: current Drinks per week: 14 Substance use: never Substance use type: does not use Do You Feel Safe in your Home?: Yes Lack of Transportation: No Lack of Food: Never True Current Housing: I Have Housing Concerned About Future Housing: No Difficulty Paying Gas/Electric Bills: No Difficulty Paying for Meds: No Currently Unemployed: No Education: Associate Degree Difficulty w/ Childcare or Family Care: No Gender identity (if verbalized by the patient): Male Spiritual care concerns: No Meds Home Medications and Allergies Home Medications ?Medication ?Instructions ?Recorded ?Confirmed ?Type magnesium 250 mg tablet 250 mg PO .3 times weekly 12/03/23 04/12/25 History febuxostat 80 mg tablet 80 mg PO DAILY #90 tabs 06/03/24 04/12/25 Rx furosemide 40 mg tablet See Rx Instructions .Route 07/30/24 04/12/25 Rx Held on 02/22/25. .COMPLEX #90 tabs Instructions: Resume on 02/28/25. Talk to your blade boner before you restart furosemide simvastatin 40 mg tablet See Rx Instructions .Route 07/30/24 04/12/25 Rx .COMPLEX #90 tabs labetalol 100 mg tablet See Rx Instructions .Route 01/19/25 04/12/25 Rx .COMPLEX #180 tabs Allergies Allergy/AdvReac Type Severity Reaction Status Date / Time allopurinol Allergy Unknown Skin Verified 04/12/25 11:29 Reaction diclofenac Allergy Unknown Pt doesn't Verified 04/12/25 11:29 know doxycycline Allergy Unknown hands Verified 04/12/25 11:29 probenecid Allergy Unknown Skin Verified 04/12/25 11:29 Reaction Vital Signs Vital Signs - 24 hr 04/12/25 16:00 04/12/25 16:00 04/12/25 16:00 Temperature Pulse Rate 86 87 Respiratory Rate Blood Pressure 171/94 H Pulse Oximetry 93 Oxygen Delivery Nasal Cannula Oxygen Flow Rate 2 Fraction of Inspired Oxygen 04/12/25 16:30 04/12/25 18:00 04/12/25 19:49 Temperature 97.6 F Pulse Rate 70 72 Respiratory Rate 13 Blood Pressure 147/105 H 194/76 H Pulse Oximetry 100 Oxygen Delivery Oxygen Flow Rate Fraction of Inspired Oxygen 04/12/25 20:00 04/12/25 20:00 04/12/25 22:00 Temperature Pulse Rate 72 72 74 Respiratory Rate 13 Blood Pressure Pulse Oximetry 100 Oxygen Delivery Nasal Cannula Oxygen Flow Rate 2 Fraction of Inspired Oxygen 04/12/25 23:44 04/13/25 00:00 04/13/25 00:00 Temperature 97.6 F Pulse Rate 72 72 84 Respiratory Rate 12 12 Blood Pressure 178/70 H Pulse Oximetry 100 100 Oxygen Delivery Oxygen Flow Rate 2 Fraction of Inspired Oxygen 04/13/25 03:52 04/13/25 08:00 04/13/25 08:00 Temperature 98.0 F Pulse Rate 86 86 72 Respiratory Rate 13 13 Blood Pressure 155/108 H Pulse Oximetry 98 100 Oxygen Delivery Nasal Cannula Oxygen Flow Rate 2 Fraction of Inspired Oxygen 04/13/25 08:21 04/13/25 09:45 04/13/25 10:00 Temperature 98.0 F Pulse Rate 83 86 Respiratory Rate 18 Blood Pressure 178/76 H Pulse Oximetry 100 91 Oxygen Delivery Nasal Cannula Oxygen Flow Rate 2 Fraction of Inspired Oxygen 28 04/13/25 10:08 04/13/25 12:00 04/13/25 12:00 Temperature 97.9 F Pulse Rate 86 86 72 Respiratory Rate 20 13 Blood Pressure 184/73 H Pulse Oximetry 100 100 Oxygen Delivery Nasal Cannula Oxygen Flow Rate 2 Fraction of Inspired Oxygen 04/13/25 12:00 04/13/25 14:00 Temperature Pulse Rate 85 83 Respiratory Rate Blood Pressure Pulse Oximetry Oxygen Delivery Oxygen Flow Rate Fraction of Inspired Oxygen Exam Narrative: Patient is sleeping and difficult to arouse. Just received Valium. Breathing normally. Moving all 4 extremities and his sleep. Response to painful stimuli. Negative Jefferson's. Results Labs 04/13/25 04:15 04/13/25 04:15 Labs: Short CBC 04/13/25 Range/Units 04:15 WBC 10.9 H (4.5-10.0) K/mm3 Hgb 9.9 L (14.0-18.0) g/dL Hct 30.5 L (42.0-52.0) % Plt Count 219 (150-375) k/mm3 BMP 04/13/25 04:15 Sodium 141 Potassium 4.2 Chloride 112 H Carbon Dioxide 14 L BUN 47 H Creatinine 2.50 H Glucose 77 Calcium 9.0 Liver Function 04/13/25 Range/Units 04:15 Total Bilirubin 0.8 (0.2-1.3) mg/dL AST 47 (17-59) U/L ALT 17 (6-50) U/L Alkaline Phosphatase 74 (38-126) U/L Albumin 3.6 (3.5-5.1) g/dL
[2025-04-14] VITALS (15 sets, daily range): BP systolic 161–193; BP diastolic 62–89; PULSE 70–109; RESP 16–22; TEMP 37.3–38.5; O2SAT 95–100
[2025-04-14] MEDS: PIPERACILLIN/TAZOBACTAM SOD 2.25 GM in SODIUM CHLORIDE 0.9% IV 50 ML 100 ML IVPB ×3 (02:10→17:30)
[2025-04-14 04:40] LABS: Hematocrit 27.9 % (42.0-52.0); Hemoglobin 9.3 g/dL (14.0-18.0); Immature Granulocyte Percent A 0.5 % (0-0.5); Lymphocytes Absolute Auto 1.18 K/mm3 (0.9-3.2); Mean Corpuscular HGB Conc 33.3 g/dl (32-36); Mean Corpuscular Hemoglobin 32.4 pg (26-34); Mean Corpuscular Volume 97.2 fl (80-100); Nucleated Red Blood Cells Absolute Auto 0.000 K/mm3 (0.0-0.012); Nucleated Red Blood Cells Perc 0.0 % (0.0-0.2); Platelet Count Result 189 k/mm3 (150-375); Red Blood Count 2.87 M/mm3 (4.6-6.20); White Blood Count 12.9 K/mm3 (4.5-10.0)
[2025-04-14] MEDS: SODIUM BICARBONATE 8.4% 150 MEQ in DEXTROSE 5% 1,000 ML 950 ML 50 MEQ IV CONT (04:53)
[2025-04-14 05:04] LABS: Alanine Aminotransferase 14 U/L (6-50); Albumin Level 3.3 g/dL (3.5-5.1); Alkaline Phosphatase 72 U/L (38-126); Anion Gap 12 mmol/L (4-12); Aspartate Amino Transferase 36 U/L (17-59); Bilirubin,Total 0.7 mg/dL (0.2-1.3); Blood Urea Nitrogen 50 mg/dL (9-20); Calcium 8.9 mg/dL (8.4-10.2); Carbon Dioxide 21 mmol/L (22-30); Chloride 109 mmol/L (98-107); Estimated CRCL calculation 14 ml/min; Estimated Glomerular Filt Rate 24; Glucose 154 mg/dL (65-110); Magnesium 1.7 mg/dL (1.6-2.3); Potassium 3.5 mmol/L (3.4-5.0); Sodium 142 mmol/L (137-145); Total Protein 6.3 g/dL (6.3-8.2)
[2025-04-14 05:58] LABS: Influenza A QL RT-PCR Negative (Negative); Influenza B QL RT-PCR Negative (Negative); RSV RNA, RT-PCR Negative (Negative); SARS-CoV-2 RNA PCR Negative (Negative)
[2025-04-14] MEDS: PANTOPRAZOLE SODIUM IV 40 MG VIAL IV PUSH (09:27)
--- NOTE | 2025-04-14 11:36 | ECG_ITS ---
Test Date: 2025-04-14 11:42:36 Measurements Intervals [place] Rate: 101 P: 0 MS: 0 QRS: -41 QRSD: 92 T: -28 QT: 290 QTc: 377 Interpretive Statements ATRIAL FIBRILLATION WITH RAPID VENTRICULAR RESPONSE LEFT AXIS DEVIATION DELAYED PRECORDIAL R/S TRANSITION BORDERLINE ST-T WAVE ABNORMALITY- ANT/INF LEADS BASELINE ARTIFACT- II, III, AVR, AVF, V1-V4 ABNORMAL ECG Compared to ECG 04/12/2025 05:23:14 HEART RATE HAS INCREASED Electronically Signed On 04-14-2025 11:47:27 CDT by Dirk Travis D.O.
--- NOTE | 2025-04-14 12:20 | ECG_ITS ---
Test Date: 2025-04-14 12:29:02 Measurements Intervals [place] Rate: 106 P: 0 CT: 0 QRS: -37 QRSD: 114 T: 8 QT: 390 QTc: 518 Interpretive Statements ATRIAL FIBRILLATION WITH RAPID VENTRICULAR RESPONSE LEFT AXIS DEVIATION BORDERLINE ST-T WAVE ABNORMALITY- ANTEROLAT/INF LEADS BASELINE ARTIFACT- AVL, AVF, V2-V3 ABNORMAL ECG Compared to ECG 04/14/2025 11:42:36 NO SIGNIFICANT CHANGE Electronically Signed On 04-14-2025 12:52:19 CDT by Dirk Travis D.O.
--- NOTE | 2025-04-14 13:10 | PM.IMPN ---
Progress Note: A&P Assessment and Plan (1) Anxiety: Code(s): F41.9 - Anxiety disorder, unspecified Status: Acute (2) Essential (primary) hypertension: Code(s): I10 - Essential (primary) hypertension Status: Chronic (3) Dyspnea on exertion: Code(s): R06.09 - Other forms of dyspnea Status: Acute (4) Mixed hyperlipidemia: Code(s): E78.2 - Mixed hyperlipidemia Status: Acute (5) Diabetes mellitus: Qualifiers: Diabetes mellitus type: type 2 Diabetes mellitus half-way insulin use: without half-way use Diabetes mellitus complication status: with kidney complications Diabetes mellitus complication detail: with chronic kidney disease Chronic kidney disease stage: stage 4 (severe) Qualified Code(s): E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; N18.4 - Chronic kidney disease, stage 4 (severe) Code(s): E11.9 - Type 2 diabetes mellitus without complications Status: Chronic (6) AMS (altered mental status): Qualifiers: Altered mental status type: unspecified Qualified Code(s): R41.82 - Altered mental status, unspecified Code(s): R41.82 - Altered mental status, unspecified Status: Acute (7) Seizure: Code(s): R56.9 - Unspecified convulsions Status: Acute (8) Type II fracture of odontoid process: Code(s): S12.110A - Anterior displaced Type II dens fracture, initial encounter for closed fracture Status: Acute Plan Patient presented with altered mental status and shaking episode on the bed. EMS was called. Patient was having seizure-like activity and was in a postictal state at the time they ride. Patient was extremely restless not obeying verbal commands. Pupils were unequal. EMS report was reviewed. Patient was not responding was found is eyes open pupils reactive responsive to pain only patient urinary himself in bed gaze was fixed to left all departing the scene patient a grand mal seizure approximately 30 seconds.. His vitals showed hypertension otherwise afebrile and oxygenation was adequate. Laboratory workup revealed hemoglobin of 10.3 WBC of 8.3 platelet of 238. INR 1.1 lactate was 1.9 troponin 0.012 ethyl alcohol level less than 10. Chem panel showed sodium 138 potassium 3.8 creatinine of 3 BUN 55 liver enzymes are normal. Head CT with no acute intracranial findings. CTA neck showed type 2 odontoid fracture. No acute cervical arterial abnormality. Mild esophageal wall thickening. Lung apices with mild bronchiolitis. CTA head with no acute findings. CT cervical spine with type 2 odontoid fracture. Type 2 order when treat fracture Patient was placed on Turlock collar. Neurosurgery on board Possible seizure disorder. Neurology consulted. Was started on Keppra and placed on seizure precautions. Increased Keppra to 750 mg b.i.d. neurology consultation awaited. Discussed with Neurology. 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 Chronic alcohol is daily chronic drinker. UDS was all negative. Alcohol level on presentation less than 10 Metabolic acidosis change fluid to bicarb which improved. CKD stage 4 baseline creatinine and bed 2s admission creatinine of 3 slight NANDINI on admission which has improved Mild bronchiolitis start Zosyn IV. Chest x-ray with small interstitial and airspace opacities scattered throughout both lungs more prominent on the left. Edema versus pneumonia. Check BNP. Influenza RSV COVID swab negative Atrial fibrillation with mild RVR 04/14/2025. Labetalol scheduled. Will do Lovenox Hyperlipidemia Osteoarthritis Gout Hypertension Lumbar stenosis Atherosclerosis of aorta Anemia chronic kidney disease Diabetes mellitus type 2 History of prostate cancer DVT prophylaxis heparin subQ. With AFib will switch to heparin drip Code status do not resuscitate Discussed with and family at bedside. Subjective Date/time seen: 04/14/25 13:10 Interval history: Patient more awake however still not following commands. Continues on cervical collar. Later the afternoon he went into AFib rhythm mild RVR. Review of Systems Review of Systems: ROS unobtainable: Yes unobtainable due to medical condition Exam Narrative: GENERAL: Confused opens his eyes on verbal commands and in no acute distress. HEAD: Normocephalic, atraumatic. EYES: Unequal pupil bigger on right than left ENT: Nares clear, no rhinorrhea or epistaxis. Mucous membranes moist. NECK: On neck collar CHEST: Coarse breath sounds bilaterally No respiratory distress. HEART: Regular rate and rhythm. No murmur heard. Normal peripheral pulses. ABDOMEN: Soft, nontender, nondistended, normal active bowel sounds. EXTREMITIES: Normal range of motion. No edema. SKIN: Warm, dry, no rash. NEURO: No focal deficits. Moving all extremities PSYCH: Confused Objective Data Vital Signs Vital Signs: Vital Signs - 24 hr 04/13/25 14:00 04/13/25 15:37 04/13/25 16:00 Temperature 98.4 F Pulse Rate 83 91 96 Respiratory Rate 20 18 Blood Pressure 192/70 H Pulse Oximetry 100 100 Oxygen Delivery Nasal Cannula Oxygen Flow Rate 2 Fraction of Inspired Oxygen 04/13/25 16:00 04/13/25 17:32 04/13/25 17:36 Temperature Pulse Rate 93 96 Respiratory Rate Blood Pressure 189/78 H Pulse Oximetry Oxygen Delivery Oxygen Flow Rate Fraction of Inspired Oxygen 04/13/25 18:00 04/13/25 18:10 04/13/25 20:00 Temperature 99.0 F Pulse Rate 78 83 Respiratory Rate 18 Blood Pressure 173/64 H 184/62 H Pulse Oximetry 100 Oxygen Delivery Oxygen Flow Rate Fraction of Inspired Oxygen 04/13/25 20:00 04/14/25 00:00 04/14/25 00:00 Temperature 99.1 F Pulse Rate 84 84 84 Respiratory Rate 16 16 Blood Pressure 183/63 H Pulse Oximetry 100 100 Oxygen Delivery Oxygen Flow Rate 1 Fraction of Inspired Oxygen 04/14/25 00:00 04/14/25 04:00 04/14/25 04:00 Temperature Pulse Rate 84 84 84 Respiratory Rate 16 16 Blood Pressure Pulse Oximetry 100 100 Oxygen Delivery Nasal Cannula Room Air Oxygen Flow Rate 1 Fraction of Inspired Oxygen 04/14/25 04:00 04/14/25 07:17 04/14/25 08:00 Temperature 99.2 F 99.5 F Pulse Rate 90 70 78 Respiratory Rate 16 22 H Blood Pressure 193/82 H 185/66 H Pulse Oximetry 97 96 Oxygen Delivery Oxygen Flow Rate Fraction of Inspired Oxygen 04/14/25 08:00 04/14/25 09:54 04/14/25 10:00 Temperature Pulse Rate 82 86 Respiratory Rate Blood Pressure 191/68 H Pulse Oximetry Oxygen Delivery Oxygen Flow Rate Fraction of Inspired Oxygen 04/14/25 11:57 04/14/25 12:00 04/14/25 12:00 Temperature 99.7 F H Pulse Rate 109 H 104 H 93 Respiratory Rate 22 H Blood Pressure 161/62 H Pulse Oximetry 98 Oxygen Delivery Oxygen Flow Rate Fraction of Inspired Oxygen Intake/Output Intake/Output: Intake & Output 04/11/25 04/12/25 04/13/25 04/14/25 23:59 23:59 23:59 23:59 Intake Total 912.5 2336.7 1110.0 Output Total 751 500 Balance 912.5 1585.7 610.0 Meds/Results Medications: Active Medications Generic Name Dose Route Start Last Admin Trade Name Freq PRN Reason Stop Dose Admin Acetaminophen 650 mg 04/12/25 06:32 Acetaminophen 325 Mg Tablet PO Q4H PRN Mild Pain (1-3) or Fever Diazepam 5 mg 04/12/25 20:46 04/13/25 16:17 Diazepam Inj (*Crx) 10 Mg/2 Ml Syringe IV PUSH 5 mg Q2H PRN Administration seizure Heparin Sodium (Porcine) 5,000 units 04/13/25 21:00 04/14/25 09:27 Heparin Sodium 5,000 Units/Ml Vial SUB-Q 5,000 units Q12HR OLENA Administration Hydralazine HCl 10 mg 04/12/25 10:27 04/14/25 09:55 Hydralazine Hcl 20 Mg/Ml Vial IV PUSH 10 mg Q8H PRN Administration Blood Pressure - High Hydromorphone HCl 0.5 mg 04/12/25 15:36 04/12/25 17:04 Hydromorphone Hcl Inj (*Crx) 1 Mg/Ml Syr IV PUSH 0.5 mg Q3H PRN Administration Pain Rated 7-10 Sodium Bicarbonate 150 meq/ 1,100 mls @ 50 mls/hr 04/13/25 09:30 04/14/25 04:53 Dextrose IV CONT 50 mls/hr .Q22H OLENA Administration Piperacillin Sod/Tazobactam 50 mls @ 100 mls/hr 04/13/25 10:00 04/14/25 10:33 Sod 2.25 gm/ Sodium Chloride IVPB Infused Q8H OLENA Infusion Levetiracetam 750 mg/ Dextrose 107.5 mls @ 430 mls/hr 04/13/25 21:00 04/14/25 09:42 IVPB Infused Q12HR OLENA Infusion Labetalol HCl 100 mg 04/12/25 12:45 04/14/25 09:23 Labetalol Hcl 100 Mg Tablet BY MOUTH Not Given Q12HR OLENA Labetalol HCl 20 mg 04/14/25 09:27 Labetalol Hcl Inj 100 Mg/20 Ml Vial IV PUSH Q6HR PRN htn Ondansetron HCl 4 mg 04/12/25 06:32 Ondansetron Inj 4 Mg/2 Ml Vial IV PUSH Q4H PRN Nausea Pantoprazole Sodium 40 mg 04/13/25 09:10 04/14/25 09:27 Pantoprazole Sodium Iv 40 Mg Vial IV PUSH 40 mg QAM OLENA Administration Simvastatin 40 mg 04/12/25 12:45 04/14/25 09:24 Simvastatin 20 Mg Tablet BY MOUTH Not Given DAILY [facility] Radiology Results: ITS Impressions Head CT 04/12/25 06:53 IMPRESSION: 1. No acute intracranial findings. Head/Neck CTA 04/12/25 07:10 IMPRESSION: CTA NECK: 1. Type II odontoid fracture. 2. No acute cervical arterial abnormality. 3. Mild esophageal wall thickening. 4. Lung apices with mild bronchiolitis. CTA HEAD: 1. No acute findings. Chest X-Ray 04/13/25 11:52 IMPRESSION: 1: Small interstitial and airspace opacities scattered throughout both lungs, more prominent on the left. Differential includes but is not limited to edema or pneumonia. Recommend follow-up to resolution. Brain MRI 04/13/25 13:21 IMPRESSION: 1. 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 2. Moderate nonspecific cerebral white matter disease, which likely represents chronic small vessel ischemic disease. 3. Type II odontoid fracture. Labs Labs: Laboratory Results - last 24 hr 04/14/25 04/14/25 04/14/25 04:18 05:00 11:47 WBC 12.9 H RBC 2.87 L Hgb 9.3 L Hct 27.9 L MCV 97.2 MCH 32.4 MCHC 33.3 RDW 14.7 H Plt Count 189 MPV 9.7 Immature Gran % (Auto) 0.5 Neut % (Auto) 79.9 H Lymph % (Auto) 9.1 L [place] % (Auto) 8.4 Eos % (Auto) 1.6 Baso % (Auto) 0.5 Lymph # (Auto) 1.18 [place] # (Auto) 1.1 H Eos # (Auto) 0.2 Baso # (Auto) 0.1 Abs Immat Gran (auto) 0.07 H Absolute Neuts (auto) 10.3 H Absolute Nucleated RBC 0.000 Nucleated RBC % 0.0 Sodium 142 Potassium 3.5 Chloride 109 H Carbon Dioxide 21 L Anion Gap 12 BUN 50 H Creatinine 2.59 H Estim Creat Clear Calc 14 Estimated GFR 24 L Glucose 154 H POC Capillary Glucose 158 H Calcium 8.9 Magnesium 1.7 Total Bilirubin 0.7 AST 36 ALT 14 Alkaline Phosphatase 72 Total Protein 6.3 Albumin 3.3 L Influenza A (RT-PCR) Negative Influenza B (RT-PCR) Negative RSV (RT-PCR) Negative SARS-CoV-2 RNA (RT-PCR) Negative
[2025-04-14] MEDS: KCL 20 MEQ/SW 100 ML 100 ML 50 MEQ IVPB (13:48)
[2025-04-14 14:10] LABS: Hematocrit 28.8 % (42.0-52.0); Hemoglobin 9.8 g/dL (14.0-18.0); Immature Granulocyte Percent A 0.5 % (0-0.5); Lymphocytes Absolute Auto 1.11 K/mm3 (0.9-3.2); Mean Corpuscular HGB Conc 34.0 g/dl (32-36); Mean Corpuscular Hemoglobin 32.6 pg (26-34); Mean Corpuscular Volume 95.7 fl (80-100); Nucleated Red Blood Cells Absolute Auto 0.000 K/mm3 (0.0-0.012); Nucleated Red Blood Cells Perc 0.0 % (0.0-0.2); Platelet Count Result 204 k/mm3 (150-375); Red Blood Count 3.01 M/mm3 (4.6-6.20); White Blood Count 14.0 K/mm3 (4.5-10.0)
[2025-04-14] MEDS: MAGNESIUM SULF 1 GM/D5W 100 ML 1 GM/100 ML BAG IVPB (14:17)
[2025-04-14] MEDS: HEPARIN SOD/D5W 100 UNITS/ML 25,000 UNITS/250 ML BAG 10 UNITS IV CONT (14:17)
[2025-04-14 14:25] LABS: INR 1.2; Prothrombin Time 15.8 Seconds (11.1-14.7)
[2025-04-14 14:26] LABS: Partial Thromboplastin Time 35.2 Seconds (22.3-36.8)
--- NOTE | 2025-04-14 15:03 | P.CONNEU_ITS ---
Assessment and Plan Assessment and plan (1) Type II fracture of odontoid process: Code(s): S12.110A - Anterior displaced Type II dens fracture, initial encounter for closed fracture Status: Acute (2) CKD (chronic kidney disease) stage 3, GFR 30-59 ml/min: Qualifiers: Chronic kidney disease stage 3 subtype: unspecified whether 3a or 3b Q ualified Code(s): N18.30 - Chronic kidney disease, stage 3 unspecified Code(s): N18.30 - Chronic kidney disease, stage 3 unspecified Status: Acute (3) Seizure: Code(s): R56.9 - Unspecified convulsions Status: Acute (4) Generalized weakness: Code(s): R53.1 - Weakness Status: Acute (5) Thalamic stroke: Code(s): I63.81 - Other cerebral infarction due to occlusion or stenosis of small artery Status: Acute Plan 1. Recurrent white fracture for which neurosurgical opinion has been obtained and management has been ascertained. 2. Incidental finding of the old infarct in left thalamus for which family is concerned what will be and long-term status. I explained to them conservative treatment as has been outlined will be continued as such, question raised by them with the possibility of meningitis or encephalitis, advised them spinal tap will not be considered because of the secondary complication we will treat him with the antibiotics as such along with observation if any change in the status. His stroke is very minor could be incidental and does not require any specific intervention. Head and neck CTA was done which documents no circulatory abnormalities. They appear to be satisfied I will rediscuss with them tomorrow for the follow-up Consult date: 04/14/25 HPI: Shantanu Burleson is a 84 year old maleAdmitted to the hospital through the emergency room for the history of generalized shaking and not responding while in the bed he was brought to the ER with change in mental status of sudden onset along with the history of ongoing 1. Hypertension 2. Hyperlipidemia 3. Chronic renal disease. Patient has been taking magnesium 250mg 3 times a day. He is allergic to allopurinol diclofenac doxycycline and santo Matthew said. He does have ongoing history of gout, osteoarthritis , atherosclerosis of the aorta, lumbar stenosis, diabetes mellitus and malignant neoplasm of the prostate. In the past he has undergone laminectomy at [facility] on March 07, 2021 in addition to carpal tunnel release rotator cuff repair an arthroscopy of the knees. He smokes 1 pack per day with years smoked 40 but at present is former smoker currently alcohol 12 drinks per week. On initial exam in the ER he was found to have no focal deficit his vital signs were with blood pressure 191/93, CBC was normal with hemoglobin only 10.3, mast scan normal, EKG normal, initial CT scan of the head negative for the bleed or major stroke, head and neck CTA negative but he was found to have type 2 odontoid fracture, chest x-ray with small interstitial airspace opacities, and brain MRI confirmed old infarct in left thalamus with moderate nonspecific cerebral white matter disease but again documented type 2 odontoid fracture. Neurosurgical consultation has been obtained who have suggested no acute surgical intervention, maintain cervical collar at all times, avoid pushing pulling lifting [id number], avoid overhead activity and movement aggravate the neck, and follow-up appointment in 6 weeks with AP and lateral cervical spine x-rays prior to the visit. Patient carries the code status do not resuscitate. Neurology consultation has been obtained to explain the status to the family. Review of Systems 2 Review of Systems: All systems reviewed & are unremarkable except as noted in HPI and below PMFSH Past Medical History Medical History Mixed hyperlipidemia NANDINI (acute kidney injury) Pneumonia Fluid overload Epistaxis r nares no bleeding site seen Gout, unspecified Gout CKD (chronic kidney disease) stage 4, GFR 15-29 ml/min Osteoarthrosis, localized, primary, involving lower leg Osteoarthrosis, localized, primary, involving hand Benign hypertension Atherosclerosis of aorta Lumbar stenosis Anemia in chronic kidney disease Diabetes mellitus Now diet controlled but required medications in the past Malignant neoplasm of prostate Surgical History Surgical History H/O cataract extraction History of appendectomy H/O laminectomy C3-C4 History of carpal tunnel release History of repair of rotator cuff H/O arthroscopy of knee Family History Family History Mother Hypertension, Onset Age: 72 Father Malignant neoplasm of prostate, Onset Age: 76 Social History Social History Social History: Caffeine- coffee Smoking packs per day: 1 Smoking cigarettes per day: 20.0 Years smoked: 40 Smoking pack-years: 40.00 Smoking status: Former smoker Tobacco type: cigarettes Second hand tobacco smoke exposure: No Additional smoking assessment comments: pt states haven't smoked in over 50 years Alcohol intake: current Drinks per week: 14 Substance use: never Substance use type: does not use Do You Feel Safe in your Home?: Yes Lack of Transportation: No Lack of Food: Never True Current Housing: I Have Housing Concerned About Future Housing: No Difficulty Paying Gas/Electric Bills: No Difficulty Paying for Meds: No Currently Unemployed: No Education: Associate Degree Difficulty w/ Childcare or Family Care: No Gender identity (if verbalized by the patient): Male Spiritual care concerns: No Meds Home Medications and Allergies Home Medications ?Medication ?Instructions ?Recorded ?Confirmed ?Type magnesium 250 mg tablet 250 mg PO .3 times weekly 04/12/25 History febuxostat 80 mg tablet 80 mg PO DAILY #90 tabs 05/2504/12/25 Rx furosemide 40 mg tablet See Rx Instructions .Route 0 07/30/24 04/12/25 Rx Held on 02/22/25. .COMPLEX #90 tabs Instructions: Resume on 02/28/25. Talk to your commissary helper before you restart furosemide simvastatin 40 mg tablet See Rx Instructions .Route 0 07/30/24 04/12/25 Rx .COMPLEX #90 tabs labetalol 100 mg tablet See Rx Instructions .Route 0 01/19/25 04/12/25 Rx .COMPLEX #180 tabs Allergies Allergy/AdvReac Type Severity Reaction Status Date / Time allopurinol Allergy Unknown Skin Verified 04/12/25 11:29 Reaction diclofenac Allergy Unknown Pt doesn't Verified 04/12/25 11:29 know doxycycline Allergy Unknown hands Verified 04/12/25 11:29 probenecid Allergy Unknown Skin Verified 04/12/25 11:29 Reaction Vital Signs Vital Signs - 24 hr 04/13/25 15:37 04/13/25 16:00 04/13/25 16:00 Temperature 36.9 C Pulse Rate 91 96 93 Respiratory Rate 20 18 Blood Pressure 192/70 H Pulse Oximetry 100 100 Oxygen Delivery Nasal Cannula Oxygen Flow Rate 2 Fraction of Inspired Oxygen 04/13/25 17:32 04/13/25 17:36 04/13/25 18:00 Temperature Pulse Rate 96 78 Respiratory Rate Blood Pressure 189/78 H Pulse Oximetry Oxygen Delivery Oxygen Flow Rate Fraction of Inspired Oxygen 04/13/25 18:10 04/13/25 20:00 04/13/25 20:00 Temperature 37.2 C Pulse Rate 83 84 Respiratory Rate 18 16 Blood Pressure 173/64 H 184/62 H Pulse Oximetry 100 100 Oxygen Delivery Oxygen Flow Rate 1 Fraction of Inspired Oxygen 28 04/14/25 00:00 04/14/25 00:00 04/14/25 00:00 Temperature 37.3 C Pulse Rate 84 84 84 Respiratory Rate 16 16 Blood Pressure 183/63 H Pulse Oximetry 100 100 Oxygen Delivery Nasal Cannula Oxygen Flow Rate 1 Fraction of Inspired Oxygen 28 04/14/25 04:00 04/14/25 04:00 04/14/25 04:00 Temperature 37.3 C Pulse Rate 84 84 90 Respiratory Rate 16 16 Blood Pressure 193/82 H Pulse Oximetry 100 97 Oxygen Delivery Room Air Oxygen Flow Rate Fraction of Inspired Oxygen 04/14/25 07:17 04/14/25 08:00 04/14/25 08:00 Temperature 37.5 C Pulse Rate 70 78 82 Respiratory Rate 22 H Blood Pressure 185/66 H Pulse Oximetry 96 Oxygen Delivery Oxygen Flow Rate Fraction of Inspired Oxygen 04/14/25 09:54 04/14/25 10:00 04/14/25 11:57 Temperature Pulse Rate 86 109 H Respiratory Rate Blood Pressure 191/68 H Pulse Oximetry Oxygen Delivery Oxygen Flow Rate Fraction of Inspired Oxygen 04/14/25 12:00 04/14/25 12:00 Temperature 37.6 C H Pulse Rate 104 H 93 Respiratory Rate 22 H Blood Pressure 161/62 H Pulse Oximetry 98 Oxygen Delivery Oxygen Flow Rate Fraction of Inspired Oxygen Exam 2 Narrative: Examination at this time revealed him to be easily arousable with gurgling breathing, family members happened to be in the room the mainly concerned about the stroke, neurological status and treatment, as mentioned he was arousable follow the few instructions moved his eyes laterally more so to the left with the family was standing, facial grimace was symmetric and he was able to move upper and lower extremities slightly reflexes were sluggish plantars were downgoing. Results Labs 04/14/25 14:02 04/14/25 04:18 Labs: Short CBC 04/14/25 04/14/25 Range/Units 04:18 14:02 WBC 12.9 H 14.0 H (4.5-10.0) K/mm3 Hgb 9.3 L 9.8 L (14.0-18.0) g/dL Hct 27.9 L 28.8 L (42.0-52.0) % Plt Count 189 204 (150-375) k/mm3 BMP 04/14/25 04:18 Sodium 142 Potassium 3.5 Chloride 109 H Carbon Dioxide 21 L BUN 50 H Creatinine 2.59 H Glucose 154 H Calcium 8.9 Liver Function 04/14/25 Range/Units 04:18 Total Bilirubin 0.7 (0.2-1.3) mg/dL AST 36 (17-59) U/L ALT 14 (6-50) U/L Alkaline Phosphatase 72 (38-126) U/L Albumin 3.3 L (3.5-5.1) g/dL
[2025-04-14 21:10] LABS: Partial Thromboplastin Time 111.4 Seconds (22.3-36.8)
[2025-04-14 22:26] LABS: NT Pro B Type Natriuretic Pept 25400 pg/mL (19.9-100)
[2025-04-14] MEDS: VANCOMYCIN 750 MG/NS 250 ML 750 MG/250 ML BAG 250 MG IVPB (22:37)
[2025-04-15] VITALS (19 sets, daily range): BP systolic 183–212; BP diastolic 58–84; PULSE 73–100; RESP 18–22; TEMP 36.8–37.9; O2SAT 91–98
[2025-04-15 00:08] LABS: MRSA (PCR) NOT DETECTED (NOT DETECTE)
[2025-04-15] MEDS: PIPERACILLIN/TAZOBACTAM SOD 2.25 GM in SODIUM CHLORIDE 0.9% IV 50 ML 100 ML IVPB ×3 (01:59→16:54)
[2025-04-15] MEDS: HYDROmorphone HCL INJ (*CRX) 1 MG/ML SYR 0.5 MG IV PUSH (02:00)
[2025-04-15 03:41] LABS: Hematocrit 27.8 % (42.0-52.0); Hemoglobin 9.2 g/dL (14.0-18.0); Immature Granulocyte Percent A 0.5 % (0-0.5); Lymphocytes Absolute Auto 1.21 K/mm3 (0.9-3.2); Mean Corpuscular HGB Conc 33.1 g/dl (32-36); Mean Corpuscular Hemoglobin 32.3 pg (26-34); Mean Corpuscular Volume 97.5 fl (80-100); Nucleated Red Blood Cells Absolute Auto 0.000 K/mm3 (0.0-0.012); Nucleated Red Blood Cells Perc 0.0 % (0.0-0.2); Platelet Count Result 199 k/mm3 (150-375); Red Blood Count 2.85 M/mm3 (4.6-6.20); White Blood Count 14.8 K/mm3 (4.5-10.0)
[2025-04-15 03:53] LABS: Alanine Aminotransferase 14 U/L (6-50); Albumin Level 3.2 g/dL (3.5-5.1); Alkaline Phosphatase 73 U/L (38-126); Anion Gap 7 mmol/L (4-12); Aspartate Amino Transferase 34 U/L (17-59); Bilirubin,Total 0.8 mg/dL (0.2-1.3); Blood Urea Nitrogen 47 mg/dL (9-20); Calcium 8.9 mg/dL (8.4-10.2); Carbon Dioxide 27 mmol/L (22-30); Chloride 108 mmol/L (98-107); Estimated CRCL calculation 14 ml/min; Estimated Glomerular Filt Rate 22; Glucose 147 mg/dL (65-110); Potassium 3.3 mmol/L (3.4-5.0); Sodium 142 mmol/L (137-145); Total Protein 6.4 g/dL (6.3-8.2)
[2025-04-15 03:56] LABS: Partial Thromboplastin Time 118.0 Seconds (22.3-36.8)
[2025-04-15] MEDS: SODIUM BICARBONATE 8.4% 150 MEQ in DEXTROSE 5% 1,000 ML 950 ML 50 MEQ IV CONT (04:08)
[2025-04-15] MEDS: PANTOPRAZOLE SODIUM IV 40 MG VIAL IV PUSH (09:09)
--- NOTE | 2025-04-15 09:52 | WPDNEUROLOGY ---
Neurology EEG Report General Information Date of Study: 04/15/25 TEST eeg DIAGNOSIS Seizures CONDITION OF RECORDING awake, drowsy and asleep. EEG NUMBER [id number] CLINICAL HISTORY Admitted to the hospital for the complaint ofseizure with subsequent fall and found to have odontoid fracture being treated conservatively. EEG DESCRIPTION Basic resting occipital frequency consists of fairly well-organized low to medium voltage 9 to 11 hertz per 2nd alpha admixed with low-voltage 15 to 18 hertz per 2nd beta. Low-voltage beta activity seen diffusely during drowsiness admixed with waxing and waning posterior alpha rhythm. Bilateral symmetrical sleep activity seen during sleep, hyperventilation not done ,photic stimulation not done. Non paroxysmal. Nonfocal. Nonlateralizing. IMPRESSION Normal record.
[2025-04-15] MEDS: KCL 40 MEQ/D5/0.9% SOD CHL 1,000 ML 70 ML IV CONT (10:17)
[2025-04-15 10:31] LABS: Partial Thromboplastin Time 94.8 Seconds (22.3-36.8)
--- NOTE | 2025-04-15 11:07 | P.PNNEUR_ITS ---
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 Objective Data Vital Signs Vital Signs: Vital Signs - 24 hr 04/14/25 11:57 04/14/25 12:00 04/14/25 12:00 Temperature 37.6 C H Pulse Rate 109 H 104 H 93 Respiratory Rate 22 H Blood Pressure 161/62 H Pulse Oximetry 98 Oxygen Delivery Fraction of Inspired Oxygen 04/14/25 14:00 04/14/25 16:00 04/14/25 16:00 Temperature 37.9 C H Pulse Rate 100 102 H 97 Respiratory Rate Blood Pressure 162/68 H Pulse Oximetry 97 Oxygen Delivery Fraction of Inspired Oxygen 04/14/25 17:29 04/14/25 18:00 04/14/25 20:00 Temperature 38.5 C H Pulse Rate 105 H 88 86 Respiratory Rate 20 Blood Pressure 193/89 H Pulse Oximetry 95 Oxygen Delivery Fraction of Inspired Oxygen 04/14/25 20:00 04/14/25 20:00 04/14/25 22:00 Temperature Pulse Rate 75 79 100 Respiratory Rate 22 H Blood Pressure Pulse Oximetry 95 Oxygen Delivery Room Air Fraction of Inspired Oxygen 04/14/25 22:37 04/15/25 00:00 04/15/25 00:00 Temperature Pulse Rate 101 H 100 100 Respiratory Rate 22 H Blood Pressure Pulse Oximetry 95 Oxygen Delivery Room Air Fraction of Inspired Oxygen 04/15/25 00:00 04/15/25 02:00 04/15/25 04:00 Temperature 37.9 C H Pulse Rate 97 99 95 Respiratory Rate 20 20 Blood Pressure 195/84 H Pulse Oximetry 95 95 Oxygen Delivery Room Air Fraction of Inspired Oxygen 04/15/25 04:00 04/15/25 04:00 04/15/25 04:08 Temperature 37.8 C H Pulse Rate 95 98 88 Respiratory Rate 18 Blood Pressure 188/71 H Pulse Oximetry 91 Oxygen Delivery Fraction of Inspired Oxygen 04/15/25 06:00 04/15/25 08:00 04/15/25 09:11 Temperature 36.8 C Pulse Rate 88 84 86 Respiratory Rate 18 Blood Pressure 183/75 H Pulse Oximetry 97 Oxygen Delivery Fraction of Inspired Oxygen Intake/Output Intake/Output: Intake & Output 04/12/25 04/13/25 04/14/25 04/15/25 23:59 23:59 23:59 23:59 Intake Total 912.5 2336.7 1588.0 1209.9 Output Total 751 1150 500 Balance 912.5 1585.7 438.0 709.9 Meds/Results Medications: Active Medications Generic Name Dose Route Start Last Admin Trade Name Freq PRN Reason Stop Dose Admin Acetaminophen 650 mg 04/12/25 06:32 Acetaminophen 325 Mg Tablet PO Q4H PRN Mild Pain (1-3) or Fever Diazepam 5 mg 04/12/25 20:46 04/13/25 16:17 Diazepam Inj (*Crx) 10 Mg/2 Ml Syringe IV PUSH 5 mg Q2H PRN Administration seizure Heparin Sodium (Porcine) 4,500 units 04/14/25 13:18 Heparin Sodium 5,000 Units/Ml Vial IV PUSH PRN PRN aPTT less than 55 seconds Heparin Sodium (Porcine) 2,000 units 04/14/25 13:18 Heparin Sodium 5,000 Units/Ml Vial IV PUSH PRN PRN aPTT 55 - 70 seconds Hydralazine HCl 10 mg 04/14/25 13:17 Hydralazine Hcl 20 Mg/Ml Vial IV PUSH Q6H PRN Blood Pressure - High Hydromorphone HCl 0.5 mg 04/12/25 15:36 04/15/25 02:00 Hydromorphone Hcl Inj (*Crx) 1 Mg/Ml Syr IV PUSH 0.5 mg Q3H PRN Administration Pain Rated 7-10 Piperacillin Sod/Tazobactam 50 mls @ 100 mls/hr 04/13/25 10:00 04/15/25 09:09 Sod 2.25 gm/ Sodium Chloride IVPB 100 mls/hr Q8H OLENA Administration Levetiracetam 750 mg/ Dextrose 107.5 mls @ 430 mls/hr 04/13/25 21:00 04/15/25 09:09 IVPB 430 mls/hr Q12HR OLENA Administration Heparin Sodium/Dextrose 25,000 units in 250 mls @ 8 mls/hr 04/14/25 13:30 04/15/25 03:59 Heparin Sodium/D5w 100 Units/Ml IV CONT 800 units/hr .Q24H OLENA 8 mls/hr Protocol Titration 800 UNITS/HR Potassium Chloride/Dextrose/Sod Cl 1,000 mls @ 70 mls/hr 04/15/25 09:30 04/15/25 10:17 Kcl 40 Meq/D5ns IV CONT 70 mls/hr .[id number] OLENA Administration Labetalol HCl 100 mg 04/12/25 12:45 04/14/25 09:23 Labetalol Hcl 100 Mg Tablet BY MOUTH Not Given On Hold: 04/14/25 13:18 Q12HR OLENA Labetalol HCl 20 mg 04/14/25 09:27 04/15/25 09:11 Labetalol Hcl Inj 100 Mg/20 Ml Vial IV PUSH 20 mg Q6HR PRN Administration htn Labetalol HCl 10 mg 04/14/25 17:00 04/15/25 04:08 Labetalol Hcl Inj 100 Mg/20 Ml Vial IV PUSH 10 mg Q6H OLENA Administration Ondansetron HCl 4 mg 04/12/25 06:32 Ondansetron Inj 4 Mg/2 Ml Vial IV PUSH Q4H PRN Nausea Pantoprazole Sodium 40 mg 04/13/25 09:10 04/15/25 09:09 Pantoprazole Sodium Iv 40 Mg Vial IV PUSH 40 mg QAM OLENA Administration Simvastatin 40 mg 04/12/25 12:45 04/15/25 10:18 Simvastatin 20 Mg Tablet BY MOUTH Not Given DAILY OLENA Vancomycin HCl 1 each 04/14/25 21:49 Vancomycin For Acute Kidney Injury IVPB PRN PRN Vancomycin Protocol Radiology Results: ITS Impressions Head CT 04/12/25 06:53 IMPRESSION: 1. No acute intracranial findings. Head/Neck CTA 04/12/25 07:10 IMPRESSION: CTA NECK: 1. Type II odontoid fracture. 2. No acute cervical arterial abnormality. 3. Mild esophageal wall thickening. 4. Lung apices with mild bronchiolitis. CTA HEAD: 1. No acute findings. Chest X-Ray 04/13/25 11:52 IMPRESSION: 1: Small interstitial and airspace opacities scattered throughout both lungs, more prominent on the left. Differential includes but is not limited to edema or pneumonia. Recommend follow-up to resolution. Brain MRI 04/13/25 13:21 IMPRESSION: 1. 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 2. Moderate nonspecific cerebral white matter disease, which likely represents chronic small vessel ischemic disease. 3. Type II odontoid fracture. Labs Labs: Laboratory Results - last 24 hr 04/12/25 04/13/25 04/14/25 11:16 09:31 04:18 WBC RBC Hgb Hct MCV MCH MCHC RDW Plt Count MPV Immature Gran % (Auto) Neut % (Auto) Lymph % (Auto) [place] % (Auto) Eos % (Auto) Baso % (Auto) Lymph # (Auto) [place] # (Auto) Eos # (Auto) Baso # (Auto) Abs Immat Gran (auto) Absolute Neuts (auto) Absolute Nucleated RBC Nucleated RBC % PT INR APTT Sodium Potassium Chloride Carbon Dioxide Anion Gap BUN Creatinine Estim Creat Clear Calc Estimated GFR Glucose POC Capillary Glucose Calcium Total Bilirubin AST ALT Alkaline Phosphatase NT-Pro-B Natriuret Pep 57242 H Total Protein Albumin Nasal MRSA (PCR) Chlamy pneumoniae PCR Not detected Adenovirus (PCR) Not detected B. pertussis DNA (PCR) Not detected B.parapertussis DNA PCR Not detected Coronavirus OC43 (PCR) Not detected Coronavirus HKU1 (PCR) Not detected Coronavirus 229E (PCR) Not detected Coronavirus NL63 (PCR) Not detected Human Metapneumovir PCR Not detected Influenza A (H1) PCR Not detected Influ A (H1/09) PCR Not detected Influenza A (H3) PCR Not detected Influenza Type A (PCR) Not detected Influenza Type B (PCR) Not detected M.pneumoniae IgM Titer <770 M. pneumoniae (PCR) Not detected Parainfluenza 1 (PCR) Not detected Parainfluenza 2 (PCR) Not detected Parainfluenza 3 (PCR) Not detected Parainfluenza 4 (PCR) Not detected RSV (PCR) Not detected Entero/Rhino (PCR) Not detected SARS-CoV-2 (PCR) Not detected 04/14/25 04/14/25 04/14/25 11:47 14:02 20:26 WBC 14.0 H RBC 3.01 L Hgb 9.8 L Hct 28.8 L MCV 95.7 MCH 32.6 MCHC 34.0 RDW 14.8 H Plt Count 204 MPV 9.8 Immature Gran % (Auto) 0.5 Neut % (Auto) 81.7 H Lymph % (Auto) 7.9 L [place] % (Auto) 8.6 H Eos % (Auto) 0.9 Baso % (Auto) 0.4 Lymph # (Auto) 1.11 [place] # (Auto) 1.2 H Eos # (Auto) 0.1 Baso # (Auto) 0.1 Abs Immat Gran (auto) 0.07 H Absolute Neuts (auto) 11.4 H Absolute Nucleated RBC 0.000 Nucleated RBC % 0.0 PT 15.8 H INR 1.2 APTT 35.2 111.4 H Sodium Potassium Chloride Carbon Dioxide Anion Gap BUN Creatinine Estim Creat Clear Calc Estimated GFR Glucose POC Capillary Glucose 158 H Calcium Total Bilirubin AST ALT Alkaline Phosphatase NT-Pro-B Natriuret Pep Total Protein Albumin Nasal MRSA (PCR) Chlamy pneumoniae PCR Adenovirus (PCR) B. pertussis DNA (PCR) B.parapertussis DNA PCR Coronavirus OC43 (PCR) Coronavirus HKU1 (PCR) Coronavirus 229E (PCR) Coronavirus NL63 (PCR) Human Metapneumovir PCR Influenza A (H1) PCR Influ A (H1/09) PCR Influenza A (H3) PCR Influenza Type A (PCR) Influenza Type B (PCR) M.pneumoniae IgM Titer M. pneumoniae (PCR) Parainfluenza 1 (PCR) Parainfluenza 2 (PCR) Parainfluenza 3 (PCR) Parainfluenza 4 (PCR) RSV (PCR) Entero/Rhino (PCR) SARS-CoV-2 (PCR) 04/14/25 04/15/25 04/15/25 22:34 03:36 10:14 WBC 14.8 H RBC 2.85 L Hgb 9.2 L Hct 27.8 L MCV 97.5 MCH 32.3 MCHC 33.1 RDW 14.9 H Plt Count 199 MPV 9.9 Immature Gran % (Auto) 0.5 Neut % (Auto) 80.8 H Lymph % (Auto) 8.2 L [place] % (Auto) 10.0 H Eos % (Auto) 0.1 Baso % (Auto) 0.4 Lymph # (Auto) 1.21 [place] # (Auto) 1.5 H Eos # (Auto) 0.0 Baso # (Auto) 0.1 Abs Immat Gran (auto) 0.08 H Absolute Neuts (auto) 11.9 H Absolute Nucleated RBC 0.000 Nucleated RBC % 0.0 PT INR APTT 118.0 H 94.8 H Sodium 142 Potassium 3.3 L Chloride 108 H Carbon Dioxide 27 Anion Gap 7 BUN 47 H Creatinine 2.74 H Estim Creat Clear Calc 14 Estimated GFR 22 L Glucose 147 H POC Capillary Glucose Calcium 8.9 Total Bilirubin 0.8 AST 34 ALT 14 Alkaline Phosphatase 73 NT-Pro-B Natriuret Pep Total Protein 6.4 Albumin 3.2 L Nasal MRSA (PCR) Not detected Chlamy pneumoniae PCR Adenovirus (PCR) B. pertussis DNA (PCR) B.parapertussis DNA PCR Coronavirus OC43 (PCR) Coronavirus HKU1 (PCR) Coronavirus 229E (PCR) Coronavirus NL63 (PCR) Human Metapneumovir PCR Influenza A (H1) PCR Influ A (H1/09) PCR Influenza A (H3) PCR Influenza Type A (PCR) Influenza Type B (PCR) M.pneumoniae IgM Titer M. pneumoniae (PCR) Parainfluenza 1 (PCR) Parainfluenza 2 (PCR) Parainfluenza 3 (PCR) Parainfluenza 4 (PCR) RSV (PCR) Entero/Rhino (PCR) SARS-CoV-2 (PCR)
--- NOTE | 2025-04-15 11:13 | PC.NURSE ---
Care coordination at bedside. Patient more alert and oriented. Able to answer questions appropriately at this time including orientation questions and who is at bedside when asked. Dentures placed and secured with denture cream in mouth by this RN. clinical education coordinator asked the patient if he would want a tube placed for feeding and patient states No, that's force feeding. Family at bedside and verbalizes understanding to this and states that he has made that known in the past. This RN did a nursing swallow evaluation and the patient immediately showed signs of aspiration. This RN called the MD and left a message informing him that he did not do well with the bedside swallow and asked for a speech evaluation. No acute distress noted at this time.
--- NOTE | 2025-04-15 11:43 | PC.NURSE ---
This RN called the MD to make him aware of high blood pressure of 200/80, left message related to previous medications given as well as plan to give scheduled medication at this time.
--- NOTE | 2025-04-15 14:06 | PC.NURSE ---
Family members request that a speech evaluation be completed before they sign with hospice. This RN discussed with physician and the speech therapy consult has been placed. Discussed with family that in order to complete the consultation the patient must be able to stay awake and follow instructions. Family verbalizes understanding at this time.
--- NOTE | 2025-04-15 14:35 | PM.IMPN ---
Progress Note: A&P Assessment and Plan (1) Seizure: Code(s): R56.9 - Unspecified convulsions Status: Acute Assessment and Plan: Patient presented with AMS and shaking episode in the bed. EMS was called. Patient was in a postictal state after the event Head CT with no acute intracranial findings. CTA neck showed type 2 odontoid fracture. No acute cervical arterial abnormality. Mild esophageal wall thickening. Lung apices with mild bronchiolitis. Chronic alcohol is daily chronic drinker. UDS was all negative. Alcohol level on presentation less than 10 Probable seizure disorder - related to alcohol w/d?. Neurology consulted. Was started on Keppra and placed on seizure precautions. 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 Metabolic acidosis change fluid to bicarb which improved. Increased Keppra to 750 mg Q12h. EEG ordered showing normal record. Speech therapy felt he could tolerate ice chips but otherwise should remain NPO Continue seizure precautions. Change to maintenance fluids. (2) AMS (altered mental status): Qualifiers: Altered mental status type: unspecified Qualified Code(s): R41.82 - Altered mental status, unspecified Code(s): R41.82 - Altered mental status, unspecified Status: Acute Assessment and Plan: AMS felt related to seizure. As above. (3) Type II fracture of odontoid process: Code(s): S12.110A - Anterior displaced Type II dens fracture, initial encounter for closed fracture Status: Acute Assessment and Plan: Patient presented with seizure-like activity CTA neck showed type 2 odontoid fracture. Patient was placed on Matinicus collar. Neurosurgery was consulted No plans for surgical repair. Holding PT/OT for now. Defer to neurosurgery (4) Essential (primary) hypertension: Code(s): I10 - Essential (primary) hypertension Status: Chronic Assessment and Plan: BP elevated here and has been long standing. Currently on IV labetolol. Has IV hydralazine available. No acute CVA noted. Advance medication as toelrated. (5) Atrial fibrillation: Code(s): I48.91 - Unspecified atrial fibrillation Status: Acute Assessment and Plan: Atrial fibrillation with mild RVR 04/14/2025. Labetalol scheduled. With AFib he was switched to heparin drip He has covnerted to NSR Follow on tele (6) Diabetes mellitus: Qualifiers: Chronic kidney disease stage: stage 4 (severe) Diabetes mellitus complication detail: with chronic kidney disease Diabetes mellitus complication status: with kidney complications Diabetes mellitus senior living insulin use: without senior living use Diabetes mellitus type: type 2 Qualified Code(s): E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; N18.4 - Chronic kidney disease, stage 4 (severe) Code(s): E11.9 - Type 2 diabetes mellitus without complications Status: Chronic Assessment and Plan: A1c 6.1% in Feb. The patient's blood glucose was reviewed on 04/15 Glucose remains well controlled. Continue AccuCheks covering with sliding scale. Hypoglycemia protocol available as needed. Discuss with family about nutrition Plan Chronic alcohol use - UDS was all negative. Alcohol level on presentation less than 10. Start CIWA protocol. CKD stage 4 - baseline creatinine 2.5-3.5. Cr stable and within his baseline. Good UOP. Mild bronchiolitis - Noted by CTA of neck. CXR showing small interstial and airspace opacitied scattered t/o both lungs. Consider aspiration vs CAP vs edema. BNP 25K. Influenza RSV COVID swab negative. Started Zosyn IV. Will lower IV fluid rate. Lasix once. DVT prophylaxis heparin rip Code status do not resuscitate Discussed with family at bedside and they were updated. The family are wanting hospice care and this has been arranged. Subjective Date/time seen: 04/15/25 14:35 Interval history: 84-year-old male with HTN, hyperlipidemia, CKD was brought in with altered mental status/seizure disorder. Patient is alert but confused so hx limited. Review of Systems Review of Systems: ROS unobtainable: Yes unobtainable due to mental status Exam Narrative: AF 98.4 100/80 80 20 98% ra Gen - NARD Neck - brace in place Chest - clear anteriorly, nml RR CV - RRR S1/S2. Tele showing possible AFib yesterday but nothing since Abd - soft. ND. +BS. - [place] secured draining clear yellow urine Ext - no pedal edema. Palpable pain to the left elbow. Neuro - confused. oriented to name and . does not follow commands. Skin - Warm, dry, Objective Data Vital Signs Vital Signs: Vital Signs - 24 hr 04/14/25 16:00 04/14/25 16:00 04/14/25 17:29 Temperature 100.3 F H Pulse Rate 102 H 97 105 H Respiratory Rate Blood Pressure 162/68 H Pulse Oximetry 97 Oxygen Delivery Fraction of Inspired Oxygen 04/14/25 18:00 04/14/25 20:00 04/14/25 20:00 Temperature 101.3 F H Pulse Rate 88 86 75 Respiratory Rate 20 22 H Blood Pressure 193/89 H Pulse Oximetry 95 95 Oxygen Delivery Room Air Fraction of Inspired Oxygen 28 04/14/25 20:00 04/14/25 22:00 04/14/25 22:37 Temperature Pulse Rate 79 100 101 H Respiratory Rate Blood Pressure Pulse Oximetry Oxygen Delivery Fraction of Inspired Oxygen 04/15/25 00:00 04/15/25 00:00 04/15/25 00:00 Temperature 100.3 F H Pulse Rate 100 100 97 Respiratory Rate 22 H 20 Blood Pressure 195/84 H Pulse Oximetry 95 95 Oxygen Delivery Room Air Fraction of Inspired Oxygen 28 04/15/25 02:00 04/15/25 04:00 04/15/25 04:00 Temperature Pulse Rate 99 95 95 Respiratory Rate 20 Blood Pressure Pulse Oximetry 95 Oxygen Delivery Room Air Fraction of Inspired Oxygen 28 04/15/25 04:00 04/15/25 04:08 04/15/25 06:00 Temperature 100.0 F H Pulse Rate 98 88 88 Respiratory Rate 18 Blood Pressure 188/71 H Pulse Oximetry 91 Oxygen Delivery Fraction of Inspired Oxygen 04/15/25 08:00 04/15/25 08:00 04/15/25 08:00 Temperature 98.3 F Pulse Rate 84 84 84 Respiratory Rate 18 18 Blood Pressure 183/75 H Pulse Oximetry 97 97 Oxygen Delivery Room Air Fraction of Inspired Oxygen 28 04/15/25 09:11 04/15/25 10:00 04/15/25 11:46 Temperature Pulse Rate 86 77 75 Respiratory Rate Blood Pressure Pulse Oximetry Oxygen Delivery Fraction of Inspired Oxygen 04/15/25 12:00 04/15/25 12:00 04/15/25 12:00 Temperature 98.4 F Pulse Rate 78 73 73 Respiratory Rate 20 20 Blood Pressure 200/80 H Pulse Oximetry 98 98 Oxygen Delivery Room Air Fraction of Inspired Oxygen 28 04/15/25 14:00 Temperature Pulse Rate 80 Respiratory Rate Blood Pressure Pulse Oximetry Oxygen Delivery Fraction of Inspired Oxygen Intake/Output Intake/Output: Intake & Output 04/12/25 04/13/25 04/14/25 04/15/25 23:59 23:59 23:59 23:59 Intake Total 912.5 2336.7 1588.0 1209.9 Output Total 751 1150 500 Balance 912.5 1585.7 438.0 709.9 Meds/Results Medications: Active Medications Generic Name Dose Route Start Last Admin Trade Name Freq PRN Reason Stop Dose Admin Acetaminophen 650 mg 04/12/25 06:32 Acetaminophen 325 Mg Tablet PO Q4H PRN Mild Pain (1-3) or Fever Diazepam 5 mg 04/12/25 20:46 04/13/25 16:17 Diazepam Inj (*Crx) 10 Mg/2 Ml Syringe IV PUSH 5 mg Q2H PRN Administration seizure Heparin Sodium (Porcine) 4,500 units 04/14/25 13:18 Heparin Sodium 5,000 Units/Ml Vial IV PUSH PRN PRN aPTT less than 55 seconds Heparin Sodium (Porcine) 2,000 units 04/14/25 13:18 Heparin Sodium 5,000 Units/Ml Vial IV PUSH PRN PRN aPTT 55 - 70 seconds Hydralazine HCl 10 mg 04/14/25 13:17 Hydralazine Hcl 20 Mg/Ml Vial IV PUSH Q6H PRN Blood Pressure - High Hydromorphone HCl 0.5 mg 04/12/25 15:36 04/15/25 02:00 Hydromorphone Hcl Inj (*Crx) 1 Mg/Ml Syr IV PUSH 0.5 mg Q3H PRN Administration Pain Rated 7-10 Piperacillin Sod/Tazobactam 50 mls @ 100 mls/hr 04/13/25 10:00 04/15/25 09:09 Sod 2.25 gm/ Sodium Chloride IVPB 100 mls/hr Q8H OLENA Administration Levetiracetam 750 mg/ Dextrose 107.5 mls @ 430 mls/hr 04/13/25 21:00 04/15/25 09:09 IVPB 430 mls/hr Q12HR OLENA Administration Heparin Sodium/Dextrose 25,000 units in 250 mls @ 8 mls/hr 04/14/25 13:30 04/15/25 03:59 Heparin Sodium/D5w 100 Units/Ml IV CONT 800 units/hr .Q24H OLENA 8 mls/hr Protocol Titration 800 UNITS/HR Potassium Chloride/Dextrose/Sod Cl 1,000 mls @ 70 mls/hr 04/15/25 09:30 04/15/25 10:17 Kcl 40 Meq/D5ns IV CONT 70 mls/hr .[id number] OLENA Administration Labetalol HCl 100 mg 04/12/25 12:45 04/14/25 09:23 Labetalol Hcl 100 Mg Tablet BY MOUTH Not Given On Hold: 04/14/25 13:18 Q12HR OLENA Labetalol HCl 20 mg 04/14/25 09:27 04/15/25 09:11 Labetalol Hcl Inj 100 Mg/20 Ml Vial IV PUSH 20 mg Q6HR PRN Administration htn Labetalol HCl 10 mg 04/14/25 17:00 04/15/25 11:46 Labetalol Hcl Inj 100 Mg/20 Ml Vial IV PUSH 10 mg Q6H OLENA Administration Ondansetron HCl 4 mg 04/12/25 06:32 Ondansetron Inj 4 Mg/2 Ml Vial IV PUSH Q4H PRN Nausea Pantoprazole Sodium 40 mg 04/13/25 09:10 04/15/25 09:09 Pantoprazole Sodium Iv 40 Mg Vial IV PUSH 40 mg QAM OLENA Administration Simvastatin 40 mg 04/12/25 12:45 04/15/25 10:18 Simvastatin 20 Mg Tablet BY MOUTH Not Given DAILY OLENA Radiology Results: ITS Impressions Head CT 04/12/25 06:53 IMPRESSION: 1. No acute intracranial findings. Head/Neck CTA 04/12/25 07:10 IMPRESSION: CTA NECK: 1. Type II odontoid fracture. 2. No acute cervical arterial abnormality. 3. Mild esophageal wall thickening. 4. Lung apices with mild bronchiolitis. CTA HEAD: 1. No acute findings. Chest X-Ray 04/13/25 11:52 IMPRESSION: 1: Small interstitial and airspace opacities scattered throughout both lungs, more prominent on the left. Differential includes but is not limited to edema or pneumonia. Recommend follow-up to resolution. Brain MRI 04/13/25 13:21 IMPRESSION: 1. 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 2. Moderate nonspecific cerebral white matter disease, which likely represents chronic small vessel ischemic disease. 3. Type II odontoid fracture. Labs Labs: Laboratory Results - last 24 hr 10/04/13/25 04/14/25 11:16 09:31 04:18 WBC RBC Hgb Hct MCV MCH MCHC RDW Plt Count MPV Immature Gran % (Auto) Neut % (Auto) Lymph % (Auto) [place] % (Auto) Eos % (Auto) Baso % (Auto) Lymph # (Auto) [place] # (Auto) Eos # (Auto) Baso # (Auto) Abs Immat Gran (auto) Absolute Neuts (auto) Absolute Nucleated RBC Nucleated RBC % APTT Sodium Potassium Chloride Carbon Dioxide Anion Gap BUN Creatinine Estim Creat Clear Calc Estimated GFR Glucose Calcium Total Bilirubin AST ALT Alkaline Phosphatase NT-Pro-B Natriuret Pep 53196 H Total Protein Albumin Nasal MRSA (PCR) Chlamy pneumoniae PCR Not detected Adenovirus (PCR) Not detected B. pertussis DNA (PCR) Not detected B.parapertussis DNA PCR Not detected Coronavirus OC43 (PCR) Not detected Coronavirus HKU1 (PCR) Not detected Coronavirus 229E (PCR) Not detected Coronavirus NL63 (PCR) Not detected Human Metapneumovir PCR Not detected Influenza A (H1) PCR Not detected Influ A (H1/09) PCR Not detected Influenza A (H3) PCR Not detected Influenza Type A (PCR) Not detected Influenza Type B (PCR) Not detected M.pneumoniae IgM Titer <770 M. pneumoniae (PCR) Not detected Parainfluenza 1 (PCR) Not detected Parainfluenza 2 (PCR) Not detected Parainfluenza 3 (PCR) Not detected Parainfluenza 4 (PCR) Not detected RSV (PCR) Not detected Entero/Rhino (PCR) Not detected SARS-CoV-2 (PCR) Not detected 04/14/25 04/14/25 04/15/25 20:26 22:34 03:36 WBC 14.8 H RBC 2.85 L Hgb 9.2 L Hct 27.8 L MCV 97.5 MCH 32.3 MCHC 33.1 RDW 14.9 H Plt Count 199 MPV 9.9 Immature Gran % (Auto) 0.5 Neut % (Auto) 80.8 H Lymph % (Auto) 8.2 L [place] % (Auto) 10.0 H Eos % (Auto) 0.1 Baso % (Auto) 0.4 Lymph # (Auto) 1.21 [place] # (Auto) 1.5 H Eos # (Auto) 0.0 Baso # (Auto) 0.1 Abs Immat Gran (auto) 0.08 H Absolute Neuts (auto) 11.9 H Absolute Nucleated RBC 0.000 Nucleated RBC % 0.0 APTT 111.4 H 118.0 H Sodium 142 Potassium 3.3 L Chloride 108 H Carbon Dioxide 27 Anion Gap 7 BUN 47 H Creatinine 2.74 H Estim Creat Clear Calc 14 Estimated GFR 22 L Glucose 147 H Calcium 8.9 Total Bilirubin 0.8 AST 34 ALT 14 Alkaline Phosphatase 73 NT-Pro-B Natriuret Pep Total Protein 6.4 Albumin 3.2 L Nasal MRSA (PCR) Not detected Chlamy pneumoniae PCR Adenovirus (PCR) B. pertussis DNA (PCR) B.parapertussis DNA PCR Coronavirus OC43 (PCR) Coronavirus HKU1 (PCR) Coronavirus 229E (PCR) Coronavirus NL63 (PCR) Human Metapneumovir PCR Influenza A (H1) PCR Influ A () PCR Influenza A (H3) PCR Influenza Type A (PCR) Influenza Type B (PCR) M.pneumoniae IgM Titer M. pneumoniae (PCR) Parainfluenza 1 (PCR) Parainfluenza 2 (PCR) Parainfluenza 3 (PCR) Parainfluenza 4 (PCR) RSV (PCR) Entero/Rhino (PCR) SARS-CoV-2 (PCR) 04/15/25 10:14 WBC RBC Hgb Hct MCV MCH MCHC RDW Plt Count MPV Immature Gran % (Auto) Neut % (Auto) Lymph % (Auto) [place] % (Auto) Eos % (Auto) Baso % (Auto) Lymph # (Auto) [place] # (Auto) Eos # (Auto) Baso # (Auto) Abs Immat Gran (auto) Absolute Neuts (auto) Absolute Nucleated RBC Nucleated RBC % APTT 94.8 H Sodium Potassium Chloride Carbon Dioxide Anion Gap BUN Creatinine Estim Creat Clear Calc Estimated GFR Glucose Calcium Total Bilirubin AST ALT Alkaline Phosphatase NT-Pro-B Natriuret Pep Total Protein Albumin Nasal MRSA (PCR) Chlamy pneumoniae PCR Adenovirus (PCR) B. pertussis DNA (PCR) B.parapertussis DNA PCR Coronavirus OC43 (PCR) Coronavirus HKU1 (PCR) Coronavirus 229E (PCR) Coronavirus NL63 (PCR) Human Metapneumovir PCR Influenza A (H1) PCR Influ A () PCR Influenza A (H3) PCR Influenza Type A (PCR) Influenza Type B (PCR) M.pneumoniae IgM Titer M. pneumoniae (PCR) Parainfluenza 1 (PCR) Parainfluenza 2 (PCR) Parainfluenza 3 (PCR) Parainfluenza 4 (PCR) RSV (PCR) Entero/Rhino (PCR) SARS-CoV-2 (PCR)
[2025-04-15] MEDS: HEPARIN SOD/D5W 100 UNITS/ML 25,000 UNITS/250 ML BAG 8 UNITS IV CONT (16:51)
[2025-04-15 16:56] LABS: Partial Thromboplastin Time 83.3 Seconds (22.3-36.8)
[2025-04-15] MEDS: DEXTROSE 5%/0.9% SOD CHL 1,000 ML 50 ML IV CONT (16:59)
--- NOTE | 2025-04-15 18:15 | PCSTNOTE ---
Please refer to the Bedside Swallow Evaluation in the EMR. Please note, silent aspiration cannot be ruled out at bedside. Pt is a 84-year-old male with PMH/of HTN, hyperlipidemia, CKD was brought in with altered mental status/seizure disorder which is sudden onset. Bedside swallow evaluation ordered this date due to RN with notable concern for aspiration when attempting to administered medications. RN agreeable to evaluation. Upon SLURRY TANK OPERATOR arrival, pt was reclined in bed and asleep. Pt easily woke and was positioned upright. Pt was alert; however, notably confused and attempted to discuss unrelated topics. Throughout the evaluation, pt was unable to sustain attention and required frequent cues from RN and SLURRY TANK OPERATOR to maintain alertness. SLURRY TANK OPERATOR performed an oral mechanism exam which was unremarkable. SLURRY TANK OPERATOR presented pt with ice chips x5 and pt demonstrated adequate mastication and attempted to initiate a swallow for presented ice chips. Thin water was presented via tsp x2. Pt demonstrated significant coughing and immediate gurling after presented with each tsp despite SLURRY TANK OPERATOR cues after initial tsp. A wet vocal quality persisted after trials. With both trials, no attempt to swallow was visualized. No further trials were presented due to significant concern for consistent aspiration. Recommendations: 1. NPO; ice chips for comfort with RN or trusted family 2. Pt not appropriate for further ST services at this time. Please re-consult ST when appropriate.
[2025-04-16] VITALS (22 sets, daily range): BP systolic 164–192; BP diastolic 58–77; PULSE 70–99; RESP 14–22; TEMP 36.1–37.2; O2SAT 92–100
[2025-04-16] MEDS: HYDROmorphone HCL INJ (*CRX) 1 MG/ML SYR 0.5 MG IV PUSH (01:01)
[2025-04-16] MEDS: PIPERACILLIN/TAZOBACTAM SOD 2.25 GM in SODIUM CHLORIDE 0.9% IV 50 ML 100 ML IVPB ×3 (01:02→17:32)
[2025-04-16] MEDS: PANTOPRAZOLE SODIUM IV 40 MG VIAL IV PUSH (09:12)
--- NOTE | 2025-04-16 11:56 | PM.IMPN ---
Progress Note: A&P Assessment and Plan (1) Seizure: Code(s): R56.9 - Unspecified convulsions Status: Acute Assessment and Plan: Patient presented with AMS and shaking episode in the bed. EMS was called. Patient was in a postictal state after the event Head CT with no acute intracranial findings. CTA neck showed type 2 odontoid fracture. No acute cervical arterial abnormality. Mild esophageal wall thickening. Lung apices with mild bronchiolitis. Daily chronic alcohol drinker. UDS was all negative. Alcohol level on presentation less than 10 Probable seizure disorder - related to alcohol w/d?. Neurology consulted. Was started on Keppra and placed on seizure precautions. 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 Metabolic acidosis on admission related to seizure. Improved with IV fluids with bicarb. Bicrab normal so changed to maintenance fluids. Increased Keppra to 750 mg Q12h. EEG ordered showing normal record. Speech therapy felt he could tolerate ice chips but otherwise should remain NPO Continue seizure precautions. No labs today since family is considering hospice care. (2) AMS (altered mental status): Qualifiers: Altered mental status type: unspecified Qualified Code(s): R41.82 - Altered mental status, unspecified Code(s): R41.82 - Altered mental status, unspecified Status: Acute Assessment and Plan: AMS felt related to seizure. As above. (3) Type II fracture of odontoid process: Code(s): S12.110A - Anterior displaced Type II dens fracture, initial encounter for closed fracture Status: Acute Assessment and Plan: Patient presented with seizure-like activity CTA neck showed type 2 odontoid fracture. Patient was placed in [place] collar. Neurosurgery was consulted and appreciate their input No plans for surgical repair. Holding PT/OT for now. Defer to neurosurgery (4) Essential (primary) hypertension: Code(s): I10 - Essential (primary) hypertension Status: Chronic Assessment and Plan: BP elevated here and this has been long standing. Was on IV labetolol but IV hydralazine had to be added. No acute CVA noted by imaging. BP better controlled. Advance medication as tolerated (5) Atrial fibrillation: Code(s): I48.91 - Unspecified atrial fibrillation Status: Acute Assessment and Plan: Atrial fibrillation with mild RVR 04/14/25. Labetalol scheduled. With AFib he was switched to heparin drip He has converted to NSR with still having episodes of AFib Follow on tele. (6) Diabetes mellitus: Qualifiers: Chronic kidney disease stage: stage 4 (severe) Diabetes mellitus complication detail: with chronic kidney disease Diabetes mellitus complication status: with kidney complications Diabetes mellitus supervisor whipped topping insulin use: without supervisor whipped topping use Diabetes mellitus type: type 2 Qualified Code(s): E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; N18.4 - Chronic kidney disease, stage 4 (severe) Code(s): E11.9 - Type 2 diabetes mellitus without complications Status: Chronic Assessment and Plan: A1c 6.1% in Feb. The patient's blood glucose was reviewed on 04/16 Glucose remains well controlled. Continue AccuCheks covering with sliding scale. Hypoglycemia protocol available as needed. Discuss with family about nutrition once decision about care plan is made Plan Chronic alcohol use - UDS was negative. Alcohol level on presentation less than 10. CIWA <5. Continue CIWA protocol. CKD stage 4 - baseline creatinine 2.5-3.5. Cr stable and within his baseline. Good UOP. Mild bronchiolitis - Noted by CTA of neck. CXR showing small interstitial and airspace opacities scattered t/o both lungs. Consider aspiration vs CAP vs edema. BNP 25K. Influenza, RSV and COVID swab negative. Continue Zosyn IV. DVT prophylaxis heparin drip Code status do not resuscitate No family at bedside. Plan to meet with hospice later today. Subjective Date/time seen: 04/16/25 11:56 Interval history: 84-year-old male with HTN, hyperlipidemia, CKD was brought in with altered mental status/seizure disorder. Patient is alert but confused so unable to provide accurate hx. Fevers overnight Review of Systems Review of Systems: ROS unobtainable: Yes unobtainable due to mental status Exam Narrative: Tm 101.3 98.5 173/68 90 14 92% ra Gen - NARD Neck - brace in place Chest - clear anteriorly, nml RR CV - RRR S1/S2. Tele showing episodes of possible AFib Abd - soft. ND. +BS. - [place] secured draining clear yellow urine Ext - no pedal edema Neuro - arouses easily. cofused Skin - Warm, dry. Dried abrasions to the right lateral leg and right 3rd toe Objective Data Vital Signs Vital Signs: Vital Signs - 24 hr 04/15/25 12:00 04/15/25 12:00 04/15/25 12:00 Temperature 98.4 F Pulse Rate 78 73 73 Pulse Rate [Bilateral Radial] Respiratory Rate 20 20 Blood Pressure 200/80 H Pulse Oximetry 98 98 Oxygen Delivery Room Air Fraction of Inspired Oxygen 28 04/15/25 14:00 04/15/25 14:36 04/15/25 16:00 Temperature 98.7 F Pulse Rate 80 82 Pulse Rate [Bilateral Radial] 86 Respiratory Rate 20 Blood Pressure 212/83 H Pulse Oximetry 98 Oxygen Delivery Fraction of Inspired Oxygen 04/15/25 16:00 04/15/25 16:00 04/15/25 16:00 Temperature Pulse Rate 82 82 Pulse Rate [Bilateral Radial] 82 Respiratory Rate 20 Blood Pressure 212/83 H Pulse Oximetry 98 Oxygen Delivery Room Air Fraction of Inspired Oxygen 28 04/15/25 16:53 04/15/25 18:00 04/15/25 19:33 Temperature 98.5 F Pulse Rate 82 85 88 Pulse Rate [Bilateral Radial] Respiratory Rate 20 Blood Pressure 183/58 H Pulse Oximetry 98 Oxygen Delivery Fraction of Inspired Oxygen 04/15/25 20:00 04/15/25 20:00 04/15/25 20:00 Temperature Pulse Rate 90 90 Pulse Rate [Bilateral Radial] 90 Respiratory Rate 20 Blood Pressure 183/58 H Pulse Oximetry 98 Oxygen Delivery Room Air Fraction of Inspired Oxygen 04/15/25 21:36 04/15/25 23:47 04/16/25 00:00 Temperature Pulse Rate 86 86 Pulse Rate [Bilateral Radial] 80 Respiratory Rate Blood Pressure 183/58 H Pulse Oximetry Oxygen Delivery Fraction of Inspired Oxygen 04/16/25 00:00 04/16/25 00:00 04/16/25 00:18 Temperature 99.0 F Pulse Rate 81 81 88 Pulse Rate [Bilateral Radial] Respiratory Rate 20 18 Blood Pressure 188/70 H Pulse Oximetry 98 97 Oxygen Delivery Room Air Fraction of Inspired Oxygen 04/16/25 02:00 04/16/25 03:34 04/16/25 04:00 Temperature 99.0 F Pulse Rate 70 91 Pulse Rate [Bilateral Radial] 92 Respiratory Rate 20 Blood Pressure 172/66 H 172/66 H Pulse Oximetry 92 Oxygen Delivery Fraction of Inspired Oxygen 04/16/25 04:00 04/16/25 04:00 04/16/25 05:43 Temperature Pulse Rate 92 92 90 Pulse Rate [Bilateral Radial] Respiratory Rate 20 Blood Pressure Pulse Oximetry 92 Oxygen Delivery Room Air Fraction of Inspired Oxygen 04/16/25 06:00 04/16/25 07:35 04/16/25 07:46 Temperature Pulse Rate 90 92 Pulse Rate [Bilateral Radial] 92 Respiratory Rate 20 Blood Pressure 172/66 H Pulse Oximetry 92 Oxygen Delivery Room Air Fraction of Inspired Oxygen 04/16/25 08:00 04/16/25 08:48 Temperature 97.8 F Pulse Rate 90 Pulse Rate [Bilateral Radial] Respiratory Rate 14 Blood Pressure 173/68 H Pulse Oximetry 96 92 Oxygen Delivery Room Air Fraction of Inspired Oxygen Intake/Output Intake/Output: Intake & Output 04/13/25 04/14/25 04/15/25 04/16/25 23:59 23:59 23:59 23:59 Intake Total 2336.7 1588.0 1689.3 50 Output Total 751 1150 1351 400 Balance 1585.7 438.0 338.3 -350 Meds/Results Medications: Active Medications Generic Name Dose Route Start Last Admin Trade Name Freq PRN Reason Stop Dose Admin Acetaminophen 650 mg 04/12/25 06:32 Acetaminophen 325 Mg Tablet PO Q4H PRN Mild Pain (1-3) or Fever Diazepam 5 mg 04/12/25 20:46 04/13/25 16:17 Diazepam Inj (*Crx) 10 Mg/2 Ml Syringe IV PUSH 5 mg Q2H PRN Administration seizure Heparin Sodium (Porcine) 4,500 units 04/14/25 13:18 Heparin Sodium 5,000 Units/Ml Vial IV PUSH PRN PRN aPTT less than 55 seconds Heparin Sodium (Porcine) 2,000 units 04/14/25 13:18 Heparin Sodium 5,000 Units/Ml Vial IV PUSH PRN PRN aPTT 55 - 70 seconds Hydralazine HCl 10 mg 04/14/25 13:17 04/15/25 16:53 Hydralazine Hcl 20 Mg/Ml Vial IV PUSH 10 mg Q6H PRN Administration Blood Pressure - High Hydralazine HCl 10 mg 04/15/25 22:00 04/16/25 06:01 Hydralazine Hcl 20 Mg/Ml Vial IV PUSH 10 mg Q8HR OLENA Administration Hydromorphone HCl 0.5 mg 04/12/25 15:36 04/16/25 01:01 Hydromorphone Hcl Inj (*Crx) 1 Mg/Ml Syr IV PUSH 0.5 mg Q3H PRN Administration Pain Rated 7-10 Piperacillin Sod/Tazobactam 50 mls @ 100 mls/hr 04/13/25 10:00 04/16/25 01:30 Sod 2.25 gm/ Sodium Chloride IVPB Infused Q8H OLENA Infusion Levetiracetam 750 mg/ Dextrose 107.5 mls @ 430 mls/hr 04/13/25 21:00 04/16/25 09:10 IVPB 430 mls/hr Q12HR OLENA Administration Heparin Sodium/Dextrose 25,000 units in 250 mls @ 8 mls/hr 04/14/25 13:30 04/15/25 17:02 Heparin Sodium/D5w 100 Units/Ml IV CONT 800 units/hr .Q24H OLENA 8 mls/hr Protocol Titration 800 UNITS/HR Dextrose/Sodium Chloride 1,000 mls @ 50 mls/hr 04/15/25 16:25 04/15/25 16:59 Dextrose 5% Sodium Chloride 0.9% IV CONT 50 mls/hr .Q20H OLENA Administration Labetalol HCl 20 mg 04/14/25 09:27 04/15/25 09:11 Labetalol Hcl Inj 100 Mg/20 Ml Vial IV PUSH 20 mg Q6HR PRN Administration htn Labetalol HCl 10 mg 04/14/25 17:00 04/16/25 05:43 Labetalol Hcl Inj 100 Mg/20 Ml Vial IV PUSH 10 mg Q6H OLENA Administration Ondansetron HCl 4 mg 04/12/25 06:32 Ondansetron Inj 4 Mg/2 Ml Vial IV PUSH Q4H PRN Nausea Pantoprazole Sodium 40 mg 04/13/25 09:10 04/16/25 09:12 Pantoprazole Sodium Iv 40 Mg Vial IV PUSH 40 mg QAM OLENA Administration Simvastatin 40 mg 04/12/25 12:45 04/16/25 09:12 Simvastatin 20 Mg Tablet BY MOUTH Not Given DAILY OLENA Radiology Results: ITS Impressions Head CT 04/12/25 06:53 IMPRESSION: 1. No acute intracranial findings. Head/Neck CTA 04/12/25 07:10 IMPRESSION: CTA NECK: 1. Type II odontoid fracture. 2. No acute cervical arterial abnormality. 3. Mild esophageal wall thickening. 4. Lung apices with mild bronchiolitis. CTA HEAD: 1. No acute findings. Chest X-Ray 04/13/25 11:52 IMPRESSION: 1: Small interstitial and airspace opacities scattered throughout both lungs, more prominent on the left. Differential includes but is not limited to edema or pneumonia. Recommend follow-up to resolution. Brain MRI 04/13/25 13:21 IMPRESSION: 1. 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 2. Moderate nonspecific cerebral white matter disease, which likely represents chronic small vessel ischemic disease. 3. Type II odontoid fracture. Elbow X-Ray 04/15/25 15:04 Impression: No acute fracture or malalignment. Labs Labs: Laboratory Results - last 24 hr 04/15/25 16:01 APTT 83.3 H
--- NOTE | 2025-04-16 14:15 | PCDIET ---
Nutrition note: Family is requesting discharge home with hospice. Please call if nutrition interventions are needed.
[2025-04-16] MEDS: DEXTROSE 5%/0.9% SOD CHL 1,000 ML 50 ML IV CONT (15:40)
[2025-04-16] MEDS: HEPARIN SOD/D5W 100 UNITS/ML 25,000 UNITS/250 ML BAG 8 UNITS IV CONT (23:49)
[2025-04-17] VITALS (26 sets, daily range): BP systolic 162–209; BP diastolic 63–92; PULSE 68–105; RESP 12–22; TEMP 36.4–37.2; O2SAT 92–99
[2025-04-17] MEDS: HYDROmorphone HCL INJ (*CRX) 1 MG/ML SYR 0.5 MG IV PUSH (00:45)
[2025-04-17] MEDS: PIPERACILLIN/TAZOBACTAM SOD 2.25 GM in SODIUM CHLORIDE 0.9% IV 50 ML 100 ML IVPB ×3 (03:35→17:03)
[2025-04-17] MEDS: PANTOPRAZOLE SODIUM IV 40 MG VIAL IV PUSH (08:54)
[2025-04-17] MEDS: DEXTROSE 5%/0.9% SOD CHL 1,000 ML 50 ML IV CONT (08:55)
--- NOTE | 2025-04-17 09:49 | PCSTNOTE ---
Please refer to the Bedside Swallow Evaluation in the EMR. Please note, silent aspiration cannot be ruled out at bedside. Pt is a 84-year-old male with PMH/of HTN, hyperlipidemia, CKD was brought in with altered mental status/seizure disorder which is sudden onset. Bedside swallow evaluation ordered this date to reassess swallow function prior to considering hospice care. Upon [employer]ETING DAT[employer]ASE CONSULTANT arrival, patient was reclined in bed alert and attentive. head of bed raised for swallow assessment. Patient was presented the following consistencies with family present.: 5 cc/tsp thin, 5cc/tsp mildly thick, and 5cc/tsp moderately thick. Patient demonstrated a delayed swallow response with weak laryngeal elevation for each trial and multiple swallows. Vocal quality slightly hoarse with a delayed cough for both tsp thin and tsp mildly thick. Following trials tsp moderately thick patient had a delayed throat clear prior to [employer]ETING DAT[employer]ASE CONSULTANT leaving the room. Discussed results with family. Patient showing clinical signs of possible aspiration across consistencies. However, given alertness may consider MBS to better evaluate swallow function and make recommendations for patient and family.
--- NOTE | 2025-04-17 13:54 | PCNFU ---
Nutrition Follow-Up Complete: Inadequate energy intake related to pt not alert and oriented as evidenced by nursing report Meet estimated needs via PO or alternative nutrition support if needed - Not progressing. Continue with goals as appropriate Goal: Pt current nutrition is NPO. Nutrition recommendation: Awaiting results of barium swallow test Last recorded weight is 56.2 kg. Bowel Motility: +1 BM 04/17 Labs Reviewed: No labs today Meds Noted: Protonix Zofran Skin: No skin issues Additional Notes: Hospice discharge was planned. Pt became significantly more alert. MBS is planned to determine swallow recommendations. Pt does not want a PEG tube. Continue to monitor for nutrition needs. Monitor diet orders, alertness, wt, labs. follow up in 3 days.
--- NOTE | 2025-04-17 14:40 | P.PNIM_ITS ---
Progress Note: A&P Assessment and Plan (1) Seizure: Code(s): R56.9 - Unspecified convulsions Status: Acute Assessment and Plan: Patient presented with AMS and shaking episode in the bed. EMS was called. Patient was in a postictal state after the event Head CT with no acute intracranial findings. CTA neck showed type 2 odontoid fracture. No acute cervical arterial abnormality. Mild esophageal wall thickening. Lung apices with mild bronchiolitis. Daily chronic alcohol drinker. UDS was all negative. Alcohol level <10 Probable seizure disorder - related to alcohol w/d?. Neurology consulted. He was started on Keppra and placed on seizure precautions. 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 Metabolic acidosis on admission related to seizure. Improved with IV fluids with bicarb. Bicrab normal so changed to maintenance fluids. Increased Keppra to 750 mg Q12h. EEG showing normal record. Continue seizure precautions. (2) Dysphagia: Code(s): R13.10 - Dysphagia, unspecified Status: Acute Assessment and Plan: Speech therapy felt patient could tolerate ice chips but otherwise should remain NPO early in his hospital course Plan was for hospice but now more awake and alert Bedside swallow evaluation was poor so MBS performed today showing patient should remain NPO. Spoke with patient and family at bedside (with his permission). He understands that he may never be able to swallow safely again and now wants PEG placement. Will place NGT for enteral nutrition and consult GI. Continue ST (3) AMS (altered mental status): Qualifiers: Altered mental status type: unspecified Qualified Code(s): R41.82 - Altered mental status, unspecified Code(s): R41.82 - Altered mental status, unspecified Status: Acute Assessment and Plan: AMS felt related to seizure. AMS resolving Continue to monitor. (4) Type II fracture of odontoid process: Code(s): S12.110A - Anterior displaced Type II dens fracture, initial encounter for closed fracture Status: Acute Assessment and Plan: Patient presented with seizure-like activity CTA neck showed type 2 odontoid fracture. Patient was placed in [place] collar. Neurosurgery was consulted and appreciate their input No plans for surgical repair. Start PT/OT when okay with neurosurgery (5) Essential (primary) hypertension: Code(s): I10 - Essential (primary) hypertension Status: Chronic Assessment and Plan: BP elevated here and this has been long standing. Only on labetalol at home. Was on IV labetalol but IV hydralazine had to be added. No acute CVA noted by imaging. BP better controlled but still poorly controlled. Advance medication as tolerated which will be easier with GI access. (6) Atrial fibrillation: Code(s): I48.91 - Unspecified atrial fibrillation Status: Acute Assessment and Plan: Atrial fibrillation with mild RVR 04/14/25. Labetalol scheduled. With AFib he was switched to heparin drip He has converted to NSR with still having episodes of AFib Follow on tele. Contineu Heparin drip until PEG in place. (7) Diabetes mellitus: Qualifiers: Chronic kidney disease stage: stage 4 (severe) Diabetes mellitus complication detail: with chronic kidney disease Diabetes mellitus complication status: with kidney complications Diabetes mellitus snf insulin use: without snf use Diabetes mellitus type: type 2 Qualified Code(s): E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; N18.4 - Chronic kidney disease, stage 4 (severe) Code(s): E11.9 - Type 2 diabetes mellitus without complications Status: Chronic Assessment and Plan: A1c 6.1% in Feb. The patient's blood glucose was reviewed on 04/17 Glucose has remained well controlled. Continue AccuCheks covering with sliding scale. Hypoglycemia protocol available as needed. Start Glucerna once NGT in place Plan Chronic alcohol use - UDS was negative. Alcohol level <10. CIWA <5. Continue CIWA protocol. CKD stage 4 - baseline creatinine 2.5-3.5. Cr stable and within his baseline. Good UOP. Repeat labs tomorrow Mild bronchiolitis - Noted by CTA of neck. CXR showing small interstitial and airspace opacities scattered t/o both lungs. Consider aspiration vs CAP vs edema. BNP 25K. Influenza, RSV and COVID swab negative. Continue Zosyn IV. He remains on room air. Check Echo. DVT prophylaxis heparin drip Code status do not resuscitate Subjective Date/time seen: 04/17/25 14:40 Interval history: 84-year-old male with HTN, hyperlipidemia, CKD was brought in with altered me ntal status/seizure disorder. No problems overnight. No CP or SOB. No n/v. . No neck pain. More oriented today. Irregular sized pupils chronic due to eye surgery in the past. Also has chronic left sided weakness. Exam Narrative: AF 97.5 198/72 79 12 99% ra Gen - NARD HEENT - Right pupil normal with pinpoint left pupil Neck - neck brace in place Chest - clear anteriorly, nml RR CV - RRR S1/S2. Tele showing episodes of possible AFib Abd - soft. NT/ND. +BS. - [place] secured draining clear yellow urine Ext - no pedal edema Neuro - alert and oriented x4. Left sided hemiparesis worse in the LUE Skin - Warm, dry. Objective Data Vital Signs Vital Signs: Vital Signs - 24 hr 04/16/25 16:00 04/16/25 16:00 04/16/25 16:00 Temperature 98.2 F Pulse Rate 92 74 Pulse Rate [Bilateral Radial] 92 Respiratory Rate 20 22 H Blood Pressure 172/66 H 164/77 H Pulse Oximetry 92 99 Oxygen Delivery Room Air Fraction of Inspired Oxygen 04/16/25 16:00 04/16/25 17:32 04/16/25 18:00 Temperature Pulse Rate 93 88 83 Pulse Rate [Bilateral Radial] Respiratory Rate Blood Pressure Pulse Oximetry Oxygen Delivery Fraction of Inspired Oxygen 04/16/25 20:00 04/16/25 20:00 04/16/25 20:00 Temperature Pulse Rate 82 82 Pulse Rate [Bilateral Radial] 82 Respiratory Rate 16 Blood Pressure 191/70 H Pulse Oximetry 93 Oxygen Delivery Room Air Fraction of Inspired Oxygen 04/16/25 20:14 04/16/25 22:00 04/16/25 23:49 Temperature 98.8 F Pulse Rate 83 78 99 Pulse Rate [Bilateral Radial] Respiratory Rate 16 Blood Pressure 191/70 H Pulse Oximetry 93 Oxygen Delivery Fraction of Inspired Oxygen 04/17/25 00:00 04/17/25 00:00 04/17/25 00:00 Temperature Pulse Rate 100 100 Pulse Rate [Bilateral Radial] 78 Respiratory Rate 16 Blood Pressure 191/70 H Pulse Oximetry 93 Oxygen Delivery Room Air Fraction of Inspired Oxygen 04/17/25 00:09 04/17/25 02:00 04/17/25 03:51 Temperature 98.9 F Pulse Rate 105 H 80 Pulse Rate [Bilateral Radial] 80 Respiratory Rate 18 Blood Pressure 196/71 H 196/71 H Pulse Oximetry 95 Oxygen Delivery Fraction of Inspired Oxygen 04/17/25 03:51 04/17/25 03:51 04/17/25 04:37 Temperature 98.8 F Pulse Rate 80 80 81 Pulse Rate [Bilateral Radial] Respiratory Rate 18 22 H Blood Pressure 162/63 H Pulse Oximetry 95 92 Oxygen Delivery Room Air Fraction of Inspired Oxygen 28 04/17/25 05:55 04/17/25 06:00 04/17/25 07:43 Temperature 98.6 F Pulse Rate 94 90 77 Pulse Rate [Bilateral Radial] Respiratory Rate 18 Blood Pressure 165/66 H Pulse Oximetry 98 Oxygen Delivery Fraction of Inspired Oxygen 04/17/25 08:00 04/17/25 08:00 04/17/25 10:00 Temperature Pulse Rate 77 76 Pulse Rate [Bilateral Radial] Respiratory Rate Blood Pressure Pulse Oximetry 99 Oxygen Delivery Room Air Fraction of Inspired Oxygen 04/17/25 11:48 04/17/25 11:48 04/17/25 11:56 Temperature 97.5 F L Pulse Rate 80 80 Pulse Rate [Bilateral Radial] Respiratory Rate 12 Blood Pressure 209/75 H 198/72 H Pulse Oximetry 99 Oxygen Delivery Fraction of Inspired Oxygen 04/17/25 12:00 04/17/25 12:00 Temperature Pulse Rate 79 Pulse Rate [Bilateral Radial] Respiratory Rate Blood Pressure Pulse Oximetry 99 Oxygen Delivery Room Air Fraction of Inspired Oxygen Intake/Output Intake/Output: Intake & Output 04/14/25 04/15/25 04/16/25 04/17/25 23:59 23:59 23:59 23:59 Intake Total 1588.0 1689.3 1686.3 962.5 Output Total 1150 1351 1200 850 Balance 438.0 338.3 486.3 112.5 Meds/Results Medications: Active Medications Generic Name Dose Route Start Last Admin Trade Name Freq PRN Reason Stop Dose Admin Acetaminophen 650 mg 04/12/25 06:32 Acetaminophen 325 Mg Tablet PO Q4H PRN Mild Pain (1-3) or Fever Diazepam 5 mg 04/12/25 20:46 04/13/25 16:17 Diazepam Inj (*Crx) 10 Mg/2 Ml Syringe IV PUSH 5 mg Q2H PRN Administration seizure Heparin Sodium (Porcine) 4,500 units 04/14/25 13:18 Heparin Sodium 5,000 Units/Ml Vial IV PUSH PRN PRN aPTT less than 55 seconds Heparin Sodium (Porcine) 2,000 units 04/14/25 13:18 Heparin Sodium 5,000 Units/Ml Vial IV PUSH PRN PRN aPTT 55 - 70 seconds Hydralazine HCl 10 mg 04/14/25 13:17 04/15/25 16:53 Hydralazine Hcl 20 Mg/Ml Vial IV PUSH 10 mg Q6H PRN Administration Blood Pressure - High Hydralazine HCl 10 mg 04/15/25 22:00 04/17/25 14:34 Hydralazine Hcl 20 Mg/Ml Vial IV PUSH 10 mg Q8HR OLENA Administration Hydromorphone HCl 0.5 mg 04/12/25 15:36 04/17/25 00:45 Hydromorphone Hcl Inj (*Crx) 1 Mg/Ml Syr IV PUSH 0.5 mg Q3H PRN Administration Pain Rated 7-10 Piperacillin Sod/Tazobactam 50 mls @ 100 mls/hr 04/13/25 10:00 04/17/25 09:45 Sod 2.25 gm/ Sodium Chloride IVPB Infused Q8H OLENA Infusion Levetiracetam 750 mg/ Dextrose 107.5 mls @ 430 mls/hr 04/13/25 21:00 04/17/25 08:53 IVPB 430 mls/hr Q12HR OLENA Administration Heparin Sodium/Dextrose 25,000 units in 250 mls @ 8 mls/hr 04/14/25 13:30 04/16/25 23:49 Heparin Sodium/D5w 100 Units/Ml IV CONT 800 units/hr .Q24H OLENA 8 mls/hr Protocol Administration 800 UNITS/HR Dextrose/Sodium Chloride 1,000 mls @ 50 mls/hr 04/15/25 16:25 04/17/25 08:55 Dextrose 5% Sodium Chloride 0.9% IV CONT 50 mls/hr .Q20H OLENA Administration Labetalol HCl 20 mg 04/14/25 09:27 04/15/25 09:11 Labetalol Hcl Inj 100 Mg/20 Ml Vial IV PUSH 20 mg Q6HR PRN Administration htn Labetalol HCl 10 mg 04/14/25 17:00 04/17/25 11:56 Labetalol Hcl Inj 100 Mg/20 Ml Vial IV PUSH 10 mg Q6H OLENA Administration Ondansetron HCl 4 mg 04/12/25 06:32 Ondansetron Inj 4 Mg/2 Ml Vial IV PUSH Q4H PRN Nausea Pantoprazole Sodium 40 mg 04/13/25 09:10 04/17/25 08:54 Pantoprazole Sodium Iv 40 Mg Vial IV PUSH 40 mg QAM OLENA Administration Simvastatin 40 mg 04/12/25 12:45 04/17/25 07:51 Simvastatin 20 Mg Tablet BY MOUTH Not Given DAILY [facility] Radiology Results: ITS Impressions Head CT 04/12/25 06:53 IMPRESSION: 1. No acute intracranial findings. Head/Neck CTA 04/12/25 07:10 IMPRESSION: CTA NECK: 1. Type II odontoid fracture. 2. No acute cervical arterial abnormality. 3. Mild esophageal wall thickening. 4. Lung apices with mild bronchiolitis. CTA HEAD: 1. No acute findings. Chest X-Ray 04/13/25 11:52 IMPRESSION: 1: Small interstitial and airspace opacities scattered throughout both lungs, more prominent on the left. Differential includes but is not limited to edema or pneumonia. Recommend follow-up to resolution. Brain MRI 04/13/25 13:21 IMPRESSION: 1. 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 2. Moderate nonspecific cerebral white matter disease, which likely represents chronic small vessel ischemic disease. 3. Type II odontoid fracture. Elbow X-Ray 04/15/25 15:04 Impression: No acute fracture or malalignment. Modified Barium Swallow 04/17/25 14:10 IMPRESSION: Pharyngeal dysphagia with laryngeal penetration with aspiration. Please correlate with speech pathologist findings and specific feeding miller mmendations.
--- NOTE | 2025-04-17 14:52 | PCSTNOTE ---
Please refer to the Modified Barium Swallow Evaluation in the EMR. The patient is a 84 year old male s/p admission to the hospital with AMS and suspected seizure activity. Orders received to complete a MBS based on recent BSE which indicated concerns for aspiration for all consistencies. The patient is presently NPO pending MBS results. The patient was seen in a lateral view and presented the following consistencies: 5 cc/ tsp thin liquid, 5 cc/ tsp mildly thick liquid, cup amounts mildly thick liquid, and pudding mixed with barium paste via tsp. Oral Stage: Timely oral preparation and transit for all consistencies. Pharyngeal stage: When presented 5cc/tsp amounts thin liquid barium laryngeal penetration was noted during the swallow secondary to reduced laryngeal elevation and after the swallow secondary to residual remaining within the pyriform sinus. When presented cup trials of mildly thick liquid barium silent aspiration was observed during the swallow secondary to reduced laryngeal elevation and laryngeal closure. Material spilled below the vocal cords and was not ejected despite effort when cued by RN [facility] ICU. The patient was viewed to have moderate residual in the valleculae for mildly thick liquid secondary to reduced lingual pressure and reduced epiglottic inversion. 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 When presented tsp amounts of pudding mixed with barium paste no aspiration or penetration was noted. However, the patient had severe residual in the valleculae and moderate residual in the pyriform sinus placing at risk for penetration and/or aspiration. When cued to perform a repeat swallow to clear residual material the patient was able to clear only minimal amounts. Due to patient's cervical collar a chin tuck posture was not a consideration. Recommend: Family considering hospice care so listing alternative considerations depending on family and patient decisions. Hospice: If family and patient decide on hospice recommend 1. Puree Diet / Level 4 2. Extreme Thick liquid / Level 4 3. Upright all trials 4. Small bites 5. Repeat swallow for each bite 6. Close supervision. If family does not consider hospice would recommend 1. NPO with alternate means of nutrition consideration 2. Speech consult for dysphagia exercises
--- NOTE | 2025-04-17 15:46 | PCDIET ---
Nutrition note: New order for tube feeding placed: Glucerna 1.2 @ goal rate 60 ml/h with flushes 30 ml q 4 h. Provides 1584 kcal, 79 g protein, 1062 ml free water. Meets needs @ 28 kcal/kg, 1.4 g protein/kg. Adequate for needs. Monitoring for tolerance, labs, output, weights. Follow up Sunday/Sunday per policy.
[2025-04-18] VITALS (22 sets, daily range): BP systolic 132–157; BP diastolic 54–68; PULSE 63–81; RESP 12–20; TEMP 36.4–37.1; O2SAT 97–99
[2025-04-18 02:23] LABS: Hematocrit 28.6 % (42.0-52.0); Hemoglobin 9.4 g/dL (14.0-18.0); Immature Granulocyte Percent A 0.3 % (0-0.5); Lymphocytes Absolute Auto 1.14 K/mm3 (0.9-3.2); Mean Corpuscular HGB Conc 32.9 g/dl (32-36); Mean Corpuscular Hemoglobin 32.1 pg (26-34); Mean Corpuscular Volume 97.6 fl (80-100); Nucleated Red Blood Cells Absolute Auto 0.000 K/mm3 (0.0-0.012); Nucleated Red Blood Cells Perc 0.0 % (0.0-0.2); Platelet Count Result 179 k/mm3 (150-375); Red Blood Count 2.93 M/mm3 (4.6-6.20); White Blood Count 9.0 K/mm3 (4.5-10.0)
[2025-04-18] MEDS: LABETALOL HCL 100 MG TABLET FEED TUBE ×3 (02:36→20:52)
[2025-04-18] MEDS: PIPERACILLIN/TAZOBACTAM SOD 2.25 GM in SODIUM CHLORIDE 0.9% IV 50 ML 100 ML IVPB ×3 (02:37→17:59)
[2025-04-18 02:38] LABS: Alanine Aminotransferase 18 U/L (6-50); Albumin Level 3.0 g/dL (3.5-5.1); Alkaline Phosphatase 150 U/L (38-126); Anion Gap 8 mmol/L (4-12); Aspartate Amino Transferase 36 U/L (17-59); Bilirubin,Total 0.9 mg/dL (0.2-1.3); Blood Urea Nitrogen 42 mg/dL (9-20); Calcium 8.8 mg/dL (8.4-10.2); Carbon Dioxide 24 mmol/L (22-30); Chloride 113 mmol/L (98-107); Estimated CRCL calculation 16 ml/min; Estimated Glomerular Filt Rate 24; Glucose 166 mg/dL (65-110); Magnesium 1.5 mg/dL (1.6-2.3); Potassium 2.5 mmol/L (3.4-5.0); Sodium 145 mmol/L (137-145); Total Protein 6.3 g/dL (6.3-8.2)
[2025-04-18] MEDS: POTASSIUM CHLORIDE 20 MEQ PACKET (FOR LIQUID) 40 MEQ FEED TUBE ×2 (05:16→21:03)
[2025-04-18] MEDS: MAGNESIUM SULF 4 GM/WATER100ML 4 GM/100 ML BAG IVPB (05:22)
[2025-04-18] MEDS: POTASSIUM CHLORIDE INJ 40 MEQ in SODIUM CHLORIDE 0.9% IV 500 ML 130 MEQ IVPB (05:29)
[2025-04-18] MEDS: PANTOPRAZOLE SODIUM IV 40 MG VIAL IV PUSH (09:14)
[2025-04-18] MEDS: HEPARIN SOD/D5W 100 UNITS/ML 25,000 UNITS/250 ML BAG 8 UNITS IV CONT (09:15)
[2025-04-18] MEDS: SIMVASTATIN 20 MG TABLET 40 MG BY MOUTH (09:18)
[2025-04-18] MEDS: ACETAMINOPHEN 325 MG TABLET 650 MG PO ×2 (09:20→17:55)
[2025-04-18] MEDS: POTASSIUM/PHOSPHORUS/SODIUM 1.5 GM PACKET 1 PACKET FEED TUBE ×2 (09:26→21:03)
--- NOTE | 2025-04-18 10:04 | P.PNIM_ITS ---
Progress Note: A&P Assessment and Plan (1) Seizure: Code(s): R56.9 - Unspecified convulsions Status: Acute Assessment and Plan: Patient presented with AMS and shaking episode in the bed. EMS was called. Patient was in a postictal state after the event Head CT with no acute intracranial findings. CTA neck showed type 2 odontoid fracture. No acute cervical arterial abnormality. Mild esophageal wall thickening. Lung apices with mild bronchiolitis. Daily chronic alcohol drinker. UDS was all negative. Alcohol level <10 Probable seizure disorder - related to alcohol w/d?. Neurology consulted. He was started on Keppra and placed on seizure precautions. 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 Metabolic acidosis on admission related to seizure. Improved with IV fluids with bicarb. Bicrab normal so changed to maintenance fluids. Stop IV fluids since tolerating TF. Increased Keppra to 750 mg Q12h. EEG showing normal record. Continue seizure precautions. (2) Dysphagia: Code(s): R13.10 - Dysphagia, unspecified Status: Acute Assessment and Plan: Speech therapy felt patient could tolerate ice chips but otherwise should remain NPO early in his hospital course Plan was for hospice but now more awake and alert Bedside swallow evaluation was poor so MBS performed 04/17 showing patient should remain NPO. Spoke with patient and family at bedside (with his permission). He understands that he may never be able to swallow safely again and now wants PEG placement. NGT placed for enteral nutrition. GO consulted. Continue ST (3) AMS (altered mental status): Qualifiers: Altered mental status type: unspecified Qualified Code(s): R41.82 - Altered mental status, unspecified Code(s): R41.82 - Altered mental status, unspecified Status: Acute Assessment and Plan: AMS felt related to seizure. AMS resolving Continue to monitor. (4) Type II fracture of odontoid process: Code(s): S12.110A - Anterior displaced Type II dens fracture, initial encounter for closed fracture Status: Acute Assessment and Plan: Patient presented with seizure-like activity CTA neck showed type 2 odontoid fracture. Patient was placed in Alvin collar. Neurosurgery was consulted and appreciate their input No plans for surgical repair. Start PT/OT with instructions from neurosurgery (5) Essential (primary) hypertension: Code(s): I10 - Essential (primary) hypertension Status: Chronic Assessment and Plan: BP elevated here and this has been long standing. Only on labetalol at home. Was on IV labetalol and IV hydralazine to control BP No acute CVA noted by imaging. NGT placed and labetolol changed to NG route and Norvasc was added. BP better controlled. Monitor for today. (6) Atrial fibrillation: Code(s): I48.91 - Unspecified atrial fibrillation Status: Acute Assessment and Plan: Atrial fibrillation with mild RVR 04/14/25. Labetalol scheduled. With AFib he was switched to heparin drip [id number]. He has converted to NSR with still having episodes of AFib Follow on tele. Continue Heparin drip until PEG in place. Check TSH (7) Diabetes mellitus: Qualifiers: Chronic kidney disease stage: stage 4 (severe) Diabetes mellitus complication detail: with chronic kidney disease Diabetes mellitus complication status: with kidney complications Diabetes mellitus care home insulin use: without care home use Diabetes mellitus type: type 2 Qualified Code(s): E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; N18.4 - Chronic kidney disease, stage 4 (severe) Code(s): E11.9 - Type 2 diabetes mellitus without complications Status: Chronic Assessment and Plan: A1c 6.1% in Feb. The patient's blood glucose was reviewed on 04/18 Glucose has remained reasonably well controlled. Continue AccuCheks covering with sliding scale. Hypoglycemia protocol available as needed. Continue to monitor Plan Chronic alcohol use - UDS was negative. Alcohol level <10. CIWA <3. Stop CIWA protocol. CKD stage 4 - baseline creatinine 2.5-3.5. Cr stable and within his baseline. Good UOP. Repeat labs tomorrow Mild bronchiolitis - Noted by CTA of neck. CXR showing small interstitial and airspace opacities scattered t/o both lungs. Consider aspiration vs CAP vs edema. BNP 25K. Influenza, RSV and COVID swab negative. Continue Zosyn IV. He remains on room air. Echo pending. DVT prophylaxis heparin drip Code status do not resuscitate Subjective Date/time seen: 04/18/25 10:04 Interval history: 84-year-old male with HTN, hyperlipidemia, CKD was brought in with altered mental status/seizure disorder. Cough more productive. No CP. No n/v Exam Narrative: AF 97.5 152/58 81 20 99% ra Gen - NARD HEENT - NGT secured. Neck - neck brace in place Chest - clear anteriorly, nml RR CV - RRR S1/S2. Tele showing no significant dysrhythmias Abd - soft. NT/ND. +BS. - [place] secured draining clear yellow urine Ext - no pedal edema Neuro - alert and appropriate Skin - Warm, dry. Objective Data Vital Signs Vital Signs: Vital Signs - 24 hr 04/17/25 11:48 04/17/25 11:48 04/17/25 11:56 Temperature 97.5 F L Pulse Rate 80 80 Pulse Rate [Apical Monitor] Respiratory Rate 12 Blood Pressure 209/75 H 198/72 H Pulse Oximetry 99 Oxygen Delivery 04/17/25 12:00 04/17/25 12:00 04/17/25 14:00 Temperature Pulse Rate 79 68 Pulse Rate [Apical Monitor] Respiratory Rate Blood Pressure Pulse Oximetry 99 Oxygen Delivery Room Air 04/17/25 15:49 04/17/25 16:00 04/17/25 16:00 Temperature 98.8 F Pulse Rate 85 78 Pulse Rate [Apical Monitor] Respiratory Rate 18 Blood Pressure 191/76 H Pulse Oximetry 98 98 Oxygen Delivery Room Air 04/17/25 17:03 04/17/25 18:00 04/17/25 20:00 Temperature Pulse Rate 74 76 75 Pulse Rate [Apical Monitor] Respiratory Rate Blood Pressure Pulse Oximetry Oxygen Delivery 04/17/25 20:14 04/17/25 20:57 04/17/25 20:57 Temperature 98.9 F Pulse Rate 79 79 Pulse Rate [Apical Monitor] 79 Respiratory Rate 18 18 Blood Pressure 197/92 H 197/92 H Pulse Oximetry 98 98 Oxygen Delivery Room Air 04/17/25 22:00 04/17/25 22:01 04/17/25 23:47 Temperature Pulse Rate 79 83 72 Pulse Rate [Apical Monitor] Respiratory Rate 18 Blood Pressure Pulse Oximetry 98 Oxygen Delivery Room Air 04/17/25 23:50 04/17/25 23:58 04/18/25 00:00 Temperature 98.9 F Pulse Rate 72 75 Pulse Rate [Apical Monitor] 72 Respiratory Rate 18 Blood Pressure 202/77 H 202/77 H Pulse Oximetry 98 Oxygen Delivery 04/18/25 02:00 04/18/25 02:36 04/18/25 03:00 Temperature Pulse Rate 75 76 73 Pulse Rate [Apical Monitor] Respiratory Rate 18 Blood Pressure Pulse Oximetry 99 Oxygen Delivery Room Air 04/18/25 03:51 04/18/25 04:00 04/18/25 04:00 Temperature 98.8 F Pulse Rate 73 74 Pulse Rate [Apical Monitor] 73 Respiratory Rate 18 Blood Pressure 153/68 H 153/68 H Pulse Oximetry 99 Oxygen Delivery 04/18/25 06:00 04/18/25 07:50 04/18/25 09:18 Temperature 97.5 F L Pulse Rate 74 80 81 Pulse Rate [Apical Monitor] Respiratory Rate 20 Blood Pressure 152/58 H Pulse Oximetry 99 Oxygen Delivery Intake/Output Intake/Output: Intake & Output 04/15/25 04/16/25 04/17/25 04/18/25 23:59 23:59 23:59 23:59 Intake Total 1689.3 1686.3 1997.5 1608 Output Total 1351 1200 1700 1200 Balance 338.3 486.3 297.5 408 Meds/Results Medications: Active Medications Generic Name Dose Route Start Last Admin Trade Name Freq PRN Reason Stop Dose Admin Acetaminophen 650 mg 04/12/25 06:32 04/18/25 09:20 Acetaminophen 325 Mg Tablet PO 650 mg Q4H PRN Administration Mild Pain (1-3) or Fever Amlodipine Besylate 5 mg 04/18/25 01:15 04/18/25 09:17 Amlodipine Besylate 5 Mg Tablet FEED TUBE 5 mg DAILY OLENA Administration Diazepam 5 mg 04/12/25 20:46 04/13/25 16:17 Diazepam Inj (*Crx) 10 Mg/2 Ml Syringe IV PUSH 5 mg Q2H PRN Administration seizure Heparin Sodium (Porcine) 4,500 units 04/14/25 13:18 Heparin Sodium 5,000 Units/Ml Vial IV PUSH PRN PRN aPTT less than 55 seconds Heparin Sodium (Porcine) 2,000 units 04/14/25 13:18 Heparin Sodium 5,000 Units/Ml Vial IV PUSH PRN PRN aPTT 55 - 70 seconds Hydralazine HCl 10 mg 04/15/25 22:00 04/18/25 05:13 Hydralazine Hcl 20 Mg/Ml Vial IV PUSH 10 mg Q8HR OLENA Administration Hydralazine HCl 10 mg 04/18/25 01:16 Hydralazine Hcl 20 Mg/Ml Vial IV PUSH Q4HR PRN SBP >180mmHg. Hydromorphone HCl 0.5 mg 04/12/25 15:36 04/17/25 00:45 Hydromorphone Hcl Inj (*Crx) 1 Mg/Ml Syr IV PUSH 0.5 mg Q3H PRN Administration Pain Rated 7-10 Piperacillin Sod/Tazobactam 50 mls @ 100 mls/hr 04/13/25 10:00 04/18/25 09:13 Sod 2.25 gm/ Sodium Chloride IVPB 100 mls/hr Q8H OLENA Administration Levetiracetam 750 mg/ Dextrose 107.5 mls @ 430 mls/hr 04/13/25 21:00 04/18/25 09:20 IVPB 430 mls/hr Q12HR OLENA Administration Heparin Sodium/Dextrose 25,000 units in 250 mls @ 8 mls/hr 04/14/25 13:30 04/18/25 09:15 Heparin Sodium/D5w 100 Units/Ml IV CONT 800 units/hr .Q24H OLENA 8 mls/hr Protocol Administration 800 UNITS/HR Dextrose/Sodium Chloride 1,000 mls @ 50 mls/hr 04/15/25 16:25 04/18/25 05:30 Dextrose 5% Sodium Chloride 0.9% IV CONT Not Given .Q20H OLENA Labetalol HCl 100 mg 04/18/25 01:15 04/18/25 09:18 Labetalol Hcl 100 Mg Tablet FEED TUBE 100 mg Q12HR OLENA Administration Ondansetron HCl 4 mg 04/12/25 06:32 Ondansetron Inj 4 Mg/2 Ml Vial IV PUSH Q4H PRN Nausea Pantoprazole Sodium 40 mg 04/13/25 09:10 04/18/25 09:14 Pantoprazole Sodium Iv 40 Mg Vial IV PUSH 40 mg QAM OLENA Administration Perflutren Lipid Microsphere 0 ml 04/17/25 15:58 Perflutren Lipid Microspheres 1.5 Ml Vial Diluted To 10 Ml Total Volume IV PUSH 04/20/25 15:59 ONCE PRN adequate visualization Protocol Simvastatin 40 mg 04/12/25 12:45 04/18/25 09:18 Simvastatin 20 Mg Tablet BY MOUTH 40 mg DAILY OLENA Administration Radiology Results: ITS Impressions Head CT 04/12/25 06:53 IMPRESSION: 1. No acute intracranial findings. Head/Neck CTA 04/12/25 07:10 IMPRESSION: CTA NECK: 1. Type II odontoid fracture. 2. No acute cervical arterial abnormality. 3. Mild esophageal wall thickening. 4. Lung apices with mild bronchiolitis. CTA HEAD: 1. No acute findings. Chest X-Ray 04/13/25 11:52 IMPRESSION: 1: Small interstitial and airspace opacities scattered throughout both lungs, more prominent on the left. Differential includes but is not limited to edema or pneumonia. Recommend follow-up to resolution. Brain MRI 04/13/25 13:21 IMPRESSION: 1. 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 2. Moderate nonspecific cerebral white matter disease, which likely represents chronic small vessel ischemic disease. 3. Type II odontoid fracture. Elbow X-Ray 04/15/25 15:04 Impression: No acute fracture or malalignment. Modified Barium Swallow 04/17/25 14:10 IMPRESSION: Pharyngeal dysphagia with laryngeal penetration with aspiration. Please correlate with speech pathologist findings and specific feeding recommendations. Abdomen X-Ray 04/17/25 20:13 IMPRESSION: Enteric tube terminates in the stomach but the sidehole is at the GE junction and advancement is recommended Labs Labs: Laboratory Results - last 24 hr 04/18/25 04/18/25 02:16 02:17 WBC 9.0 RBC 2.93 L Hgb 9.4 L Hct 28.6 L MCV 97.6 MCH 32.1 MCHC 32.9 RDW 14.6 H Plt Count 179 MPV 9.9 Immature Gran % (Auto) 0.3 Neut % (Auto) 73.4 H Lymph % (Auto) 12.7 L [place] % (Auto) 9.5 H Eos % (Auto) 3.7 Baso % (Auto) 0.4 Lymph # (Auto) 1.14 [place] # (Auto) 0.9 H Eos # (Auto) 0.3 Baso # (Auto) 0.0 Abs Immat Gran (auto) 0.03 Absolute Neuts (auto) 6.6 Absolute Nucleated RBC 0.000 Nucleated RBC % 0.0 Sodium 145 Potassium 2.5 L* Chloride 113 H Carbon Dioxide 24 Anion Gap 8 BUN 42 H Creatinine 2.53 H Estim Creat Clear Calc 16 Estimated GFR 24 L Glucose 166 H Calcium 8.8 Phosphorus 2.4 L Magnesium 1.5 L Total Bilirubin 0.9 AST 36 ALT 18 Alkaline Phosphatase 150 H Total Protein 6.3 Albumin 3.0 L
[2025-04-18 13:03] LABS: Anion Gap 9 mmol/L (4-12); Blood Urea Nitrogen 45 mg/dL (9-20); Calcium 8.9 mg/dL (8.4-10.2); Carbon Dioxide 22 mmol/L (22-30); Chloride 114 mmol/L (98-107); Estimated CRCL calculation 15 ml/min; Estimated Glomerular Filt Rate 23; Glucose 193 mg/dL (65-110); Magnesium 2.9 mg/dL (1.6-2.3); Potassium 3.4 mmol/L (3.4-5.0); Sodium 145 mmol/L (137-145)
--- NOTE | 2025-04-18 15:47 | P.PNNEUR_ITS ---
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 Patient has numerous other medical problems including chronic kidney disease, diabetes mellitus, atrial fibrillation and alcohol use. He should be followed by the Neurosurgery after discharge. I spoke to his that from the seizure point of view I shall be glad to see him in my office unless they want follow-up with the family physician and let me know if I could be of any further assistance. I have given them my phone number if they wish to contact me. Subjective Date/time seen: 04/18/25 15:47 Interval history: the patient is 84-year-old with history of seizure and refraction ordered tried currently in the neck call 0 was seen for follow-up. He has not had any further seizure-like events. MRI of the brain has shown old left thalamic infarct and some white matter changes. CT angiogram of the head and neck did not show any significant abnormal findings. EEG was normal. The patient also has a history of chronic kidney disease, diabetes mellitus, atrial fibrillation which subsequently reverted to regular sinus rhythm and alcohol use. He denies any significant pain in the neck and is keeping the cervical collar in place. His and other family members present at the time. Review of Systems Review of Systems: No additional symptoms reported by the patient. Exam Narrative: Fully conscious alert oriented. No cook significant cognitive abnormalities were noted at this time. No aphasia or dysarthria. patient has a hard cervical collar in place. Cranial nerves you testing intact. Motor system normal power in both upper and lower limbs however patient does not put forth the best effort in the manual motor examination. No other significant abnormalities were noted. Objective Data Vital Signs Vital Signs: Vital Signs - 24 hr 04/17/25 15:49 04/17/25 16:00 04/17/25 16:00 Temperature 98.8 F Pulse Rate 85 78 Pulse Rate [Apical Monitor] Respiratory Rate 18 Blood Pressure 191/76 H Pulse Oximetry 98 98 Oxygen Delivery Room Air 04/17/25 17:03 04/17/25 18:00 04/17/25 20:00 Temperature Pulse Rate 74 76 75 Pulse Rate [Apical Monitor] Respiratory Rate Blood Pressure Pulse Oximetry Oxygen Delivery 04/17/25 20:14 04/17/25 20:57 04/17/25 20:57 Temperature 98.9 F Pulse Rate 79 79 Pulse Rate [Apical Monitor] 79 Respiratory Rate 18 18 Blood Pressure 197/92 H 197/92 H Pulse Oximetry 98 98 Oxygen Delivery Room Air 04/17/25 22:00 04/17/25 22:01 04/17/25 23:47 Temperature Pulse Rate 79 83 72 Pulse Rate [Apical Monitor] Respiratory Rate 18 Blood Pressure Pulse Oximetry 98 Oxygen Delivery Room Air 04/17/25 23:50 04/17/25 23:58 04/18/25 00:00 Temperature 98.9 F Pulse Rate 72 75 Pulse Rate [Apical Monitor] 72 Respiratory Rate 18 Blood Pressure 202/77 H 202/77 H Pulse Oximetry 98 Oxygen Delivery 04/18/25 02:00 04/18/25 02:36 04/18/25 03:00 Temperature Pulse Rate 75 76 73 Pulse Rate [Apical Monitor] Respiratory Rate 18 Blood Pressure Pulse Oximetry 99 Oxygen Delivery Room Air 04/18/25 03:51 04/18/25 04:00 04/18/25 04:00 Temperature 98.8 F Pulse Rate 73 74 Pulse Rate [Apical Monitor] 73 Respiratory Rate 18 Blood Pressure 153/68 H 153/68 H Pulse Oximetry 99 Oxygen Delivery 04/18/25 06:00 04/18/25 07:50 04/18/25 09:18 Temperature 97.5 F L Pulse Rate 74 80 81 Pulse Rate [Apical Monitor] Respiratory Rate 20 Blood Pressure 152/58 H Pulse Oximetry 99 Oxygen Delivery 04/18/25 11:37 04/18/25 15:24 Temperature 98.6 F 97.7 F Pulse Rate 68 74 Pulse Rate [Apical Monitor] Respiratory Rate 12 16 Blood Pressure 132/54 L 154/62 H Pulse Oximetry 98 98 Oxygen Delivery Intake/Output Intake/Output: Intake & Output 04/15/25 04/16/25 04/17/25 04/18/25 23:59 23:59 23:59 23:59 Intake Total 1689.3 1686.3 1997.5 1658 Output Total 1351 1200 1700 1200 Balance 338.3 486.3 297.5 458 Meds/Results Medications: Active Medications Generic Name Dose Route Start Last Admin Trade Name Freq PRN Reason Stop Dose Admin Acetaminophen 650 mg 04/12/25 06:32 04/18/25 09:20 Acetaminophen 325 Mg Tablet PO 650 mg Q4H PRN Administration Mild Pain (1-3) or Fever Amlodipine Besylate 5 mg 04/18/25 01:15 04/18/25 09:17 Amlodipine Besylate 5 Mg Tablet FEED TUBE 5 mg DAILY OLENA Administration Diazepam 5 mg 04/12/25 20:46 04/13/25 16:17 Diazepam Inj (*Crx) 10 Mg/2 Ml Syringe IV PUSH 5 mg Q2H PRN Administration seizure Heparin Sodium (Porcine) 4,500 units 04/14/25 13:18 Heparin Sodium 5,000 Units/Ml Vial IV PUSH PRN PRN aPTT less than 55 seconds Heparin Sodium (Porcine) 2,000 units 04/14/25 13:18 Heparin Sodium 5,000 Units/Ml Vial IV PUSH PRN PRN aPTT 55 - 70 seconds Hydralazine HCl 10 mg 04/15/25 22:00 04/18/25 05:13 Hydralazine Hcl 20 Mg/Ml Vial IV PUSH 10 mg Q8HR OLENA Administration Hydralazine HCl 10 mg 04/18/25 01:16 Hydralazine Hcl 20 Mg/Ml Vial IV PUSH Q4HR PRN SBP >180mmHg. Hydromorphone HCl 0.5 mg 04/12/25 15:36 04/17/25 00:45 Hydromorphone Hcl Inj (*Crx) 1 Mg/Ml Syr IV PUSH 0.5 mg Q3H PRN Administration Pain Rated 7-10 Piperacillin Sod/Tazobactam 50 mls @ 100 mls/hr 04/13/25 10:00 04/18/25 09:43 Sod 2.25 gm/ Sodium Chloride IVPB Infused Q8H OLENA Infusion Levetiracetam 750 mg/ Dextrose 107.5 mls @ 430 mls/hr 04/13/25 21:00 04/18/25 09:20 IVPB 430 mls/hr Q12HR OLENA Administration Heparin Sodium/Dextrose 25,000 units in 250 mls @ 8 mls/hr 04/14/25 13:30 04/18/25 09:15 Heparin Sodium/D5w 100 Units/Ml IV CONT 800 units/hr .Q24H OLENA 8 mls/hr Protocol Administration 800 UNITS/HR Labetalol HCl 100 mg 04/18/25 01:15 04/18/25 09:18 Labetalol Hcl 100 Mg Tablet FEED TUBE 100 mg Q12HR OLENA Administration Ondansetron HCl 4 mg 04/12/25 06:32 Ondansetron Inj 4 Mg/2 Ml Vial IV PUSH Q4H PRN Nausea Pantoprazole Sodium 40 mg 04/13/25 09:10 04/18/25 09:14 Pantoprazole Sodium Iv 40 Mg Vial IV PUSH 40 mg QAM OLENA Administration Perflutren Lipid Microsphere 0 ml 04/17/25 15:58 Perflutren Lipid Microspheres 1.5 Ml Vial Diluted To 10 Ml Total Volume IV PUSH 04/20/25 15:59 ONCE PRN adequate visualization Protocol Simvastatin 40 mg 04/12/25 12:45 04/18/25 09:18 Simvastatin 20 Mg Tablet BY MOUTH 40 mg DAILY OLENA Administration Radiology Results: ITS Impressions Head CT 04/12/25 06:53 IMPRESSION: 1. No acute intracranial findings. Head/Neck CTA 04/12/25 07:10 IMPRESSION: CTA NECK: 1. Type II odontoid fracture. 2. No acute cervical arterial abnormality. 3. Mild esophageal wall thickening. 4. Lung apices with mild bronchiolitis. CTA HEAD: 1. No acute findings. Chest X-Ray 04/13/25 11:52 IMPRESSION: 1: Small interstitial and airspace opacities scattered throughout both lungs, more prominent on the left. Differential includes but is not limited to edema or pneumonia. Recommend follow-up to resolution. Brain MRI 04/13/25 13:21 IMPRESSION: 1. 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 2. Moderate nonspecific cerebral white matter disease, which likely represents chronic small vessel ischemic disease. 3. Type II odontoid fracture. Elbow X-Ray 04/15/25 15:04 Impression: No acute fracture or malalignment. Modified Barium Swallow 04/17/25 14:10 IMPRESSION: Pharyngeal dysphagia with laryngeal penetration with aspiration. Please correlate with speech pathologist findings and specific feeding recommendations. Abdomen X-Ray 04/17/25 20:13 IMPRESSION: Enteric tube terminates in the stomach but the sidehole is at the GE junction and advancement is recommended Labs Labs: Laboratory Results - last 24 hr 04/18/25 04/18/25 04/18/25 02:16 02:17 12:44 WBC 9.0 RBC 2.93 L Hgb 9.4 L Hct 28.6 L MCV 97.6 MCH 32.1 MCHC 32.9 RDW 14.6 H Plt Count 179 MPV 9.9 Immature Gran % (Auto) 0.3 Neut % (Auto) 73.4 H Lymph % (Auto) 12.7 L [place] % (Auto) 9.5 H Eos % (Auto) 3.7 Baso % (Auto) 0.4 Lymph # (Auto) 1.14 [place] # (Auto) 0.9 H Eos # (Auto) 0.3 Baso # (Auto) 0.0 Abs Immat Gran (auto) 0.03 Absolute Neuts (auto) 6.6 Absolute Nucleated RBC 0.000 Nucleated RBC % 0.0 Sodium 145 Potassium 2.5 L* Chloride 113 H Carbon Dioxide 24 Anion Gap 8 BUN 42 H Creatinine 2.53 H Estim Creat Clear Calc 16 Estimated GFR 24 L Glucose 166 H POC Capillary Glucose 191 H Calcium 8.8 Phosphorus 2.4 L Magnesium 1.5 L Total Bilirubin 0.9 AST 36 ALT 18 Alkaline Phosphatase 150 H Total Protein 6.3 Albumin 3.0 L 04/18/25 12:45 WBC RBC Hgb Hct MCV MCH MCHC RDW Plt Count MPV Immature Gran % (Auto) Neut % (Auto) Lymph % (Auto) [place] % (Auto) Eos % (Auto) Baso % (Auto) Lymph # (Auto) [place] # (Auto) Eos # (Auto) Baso # (Auto) Abs Immat Gran (auto) Absolute Neuts (auto) Absolute Nucleated RBC Nucleated RBC % Sodium 145 Potassium 3.4 Chloride 114 H Carbon Dioxide 22 Anion Gap 9 BUN 45 H Creatinine 2.69 H Estim Creat Clear Calc 15 Estimated GFR 23 L Glucose 193 H POC Capillary Glucose Calcium 8.9 Phosphorus 2.2 L Magnesium 2.9 H Total Bilirubin AST ALT Alkaline Phosphatase Total Protein Albumin
--- NOTE | 2025-04-18 15:59 | WPDGICN ---
Assessment and Plan Assessment and plan (1) Dysphagia: Code(s): R13.10 - Dysphagia, unspecified Status: Acute Assessment and Plan: plan is PEG tube Sunday, family is aware and agreeable he failed swallowing study, in the meantime tube feeding by NGT and tolerating confusional status has improved since admission, doing much better (2) Chronic kidney disease, stage IV (severe): Code(s): N18.4 - Chronic kidney disease, stage 4 (severe) Status: Chronic (3) Seizure: Code(s): R56.9 - Unspecified convulsions Status: Acute Assessment and Plan: on treatment evaluated by neurologist (4) Type II fracture of odontoid process: Code(s): S12.110A - Anterior displaced Type II dens fracture, initial encounter for closed fracture Status: Acute (5) Diabetes mellitus: Qualifiers: Diabetes mellitus type: type 2 Diabetes mellitus group home 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 Diabetes mellitus complication status: with kidney complications Diabetes mellitus complication detail: with chronic kidney disease Chronic kidney disease stage: stage 4 (severe) Qualified Code(s): E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; N18.4 - Chronic kidney disease, stage 4 (severe) Code(s): E11.9 - Type 2 diabetes mellitus without complications Status: Chronic (6) Atrial fibrillation: Code(s): I48.91 - Unspecified atrial fibrillation Status: Acute Assessment and Plan: will need to hold anticoagulation ahead of time (7) Encephalopathy: Code(s): G93.40 - Encephalopathy, unspecified Status: Acute Assessment and Plan: on admission after seizure back to his baseline now GI Consult Note Consult date/time: 04/18/25 15:59 Reason for consult: dysphagia HPI: Shantanu Burleson is a 84 year old male with history of dm, ckd stage 4, htn who was admitted via EMS on 04/12/2025 status post seizure / altered mental status. Patient had no previous history of seizure. states he was on the bed when this happened and did not sustain a fall or hit his head. During workup, patient was noted to have a type 2 odontoid fracture for which Neurosurgery is consulted. The patient was placed into an [place] collar, no need of surgical intervention. He also was confused but that has improved, now he understands what is going on. Several family members at bedside. He had bedside swallow test and high risk for aspiration, recommendation is to place PEG tube, in the meantime he has NGT tolerating feeding. He is fully alert and oriented, agreeable for PEG placement, also afib who has been on heparin. Review of Systems Constitutional: Constitutional: Reports weakness Eyes: Eyes: Reports no additional eye complaints ENT: Reports dysphagia Cardiovascular: Cardiovascular: Denies chest pain Respiratory: Respiratory: Denies cough Gastrointestinal: Gastrointestinal: Denies abdominal pain Genitourinary: Genitourinary: Denies flank pain Musculoskeletal: Musculoskeletal: Reports neck pain Integumentary/Breasts: Skin/Breast: Denies rash Neurologic: Reports confusion Psychiatric: Psychiatric: Reports confusion [facility] Past Medical History Medical History (Updated 04/18/25 @ 16:09 by Ryan Dewitt MD) Encephalopathy Mixed hyperlipidemia NANDINI (acute kidney injury) Pneumonia Fluid overload Epistaxis r nares no bleeding site seen Gout, unspecified Gout CKD (chronic kidney disease) stage 4, GFR 15-29 ml/min Osteoarthrosis, localized, primary, involving lower leg Osteoarthrosis, localized, primary, involving hand Benign hypertension Atherosclerosis of aorta Lumbar stenosis Anemia in chronic kidney disease Diabetes mellitus Now diet controlled but required medications in the past Malignant neoplasm of prostate Surgical History Surgical History H/O cataract extraction History of appendectomy H/O laminectomy C3-C4 History of carpal tunnel release History of repair of rotator cuff H/O arthroscopy of knee Family History Family History Mother Hypertension, Onset Age: 72 Father Malignant neoplasm of prostate, Onset Age: 76 Social History Social History Social History: Caffeine- coffee Smoking packs per day: 1 Smoking cigarettes per day: 20.0 Years smoked: 40 Smoking pack-years: 40.00 Smoking status: Former smoker Tobacco type: cigarettes Second hand tobacco smoke exposure: No Additional smoking assessment comments: pt states haven't smoked in over 50 years Alcohol intake: current Drinks per week: 14 Substance use: never Substance use type: does not use Do You Feel Safe in your Home?: Yes Lack of Transportation: No Lack of Food: Never True Current Housing: I Have Housing Concerned About Future Housing: No Difficulty Paying Gas/Electric Bills: No Difficulty Paying for Meds: No Currently Unemployed: No Education: Associate Degree Difficulty w/ Childcare or Family Care: No Gender identity (if verbalized by the patient): Male Spiritual care concerns: No Meds Home Medications and Allergies Home Medications ?Medication ?Instructions ?Recorded ?Confirmed ?Type magnesium 250 mg tablet 250 mg PO .3 times weekly 12/03/23 04/12/25 History febuxostat 80 mg tablet 80 mg PO DAILY #90 tabs 06/03/24 04/12/25 Rx furosemide 40 mg tablet See Rx Instructions .Route 07/30/24 04/12/25 Rx Held on 02/22/25. .COMPLEX #90 tabs Instructions: Resume on 02/28/25. Talk to your publishing director before you restart furosemide simvastatin 40 mg tablet See Rx Instructions .Route 07/30/24 04/12/25 Rx .COMPLEX #90 tabs labetalol 100 mg tablet See Rx Instructions .Route 01/19/25 04/12/25 Rx .COMPLEX #180 tabs Allergies Allergy/AdvReac Type Severity Reaction Status Date / Time allopurinol Allergy Unknown Skin Verified 04/12/25 11:29 Reaction diclofenac Allergy Unknown Pt doesn't Verified 04/12/25 11:29 know doxycycline Allergy Unknown hands Verified 04/12/25 11:29 probenecid Allergy Unknown Skin Verified 04/12/25 11:29 Reaction Vital Signs Vital Signs - 24 hr 04/17/25 16:00 04/17/25 16:00 04/17/25 17:03 Temperature Pulse Rate 78 74 Pulse Rate [Apical Monitor] Respiratory Rate Blood Pressure Pulse Oximetry 98 Oxygen Delivery Room Air 04/17/25 18:00 04/17/25 20:00 04/17/25 20:14 Temperature 98.9 F Pulse Rate 76 75 79 Pulse Rate [Apical Monitor] Respiratory Rate 18 Blood Pressure 197/92 H Pulse Oximetry 98 Oxygen Delivery 04/17/25 20:57 04/17/25 20:57 04/17/25 22:00 Temperature Pulse Rate 79 79 Pulse Rate [Apical Monitor] 79 Respiratory Rate 18 Blood Pressure 197/92 H Pulse Oximetry 98 Oxygen Delivery Room Air 04/17/25 22:01 04/17/25 23:47 04/17/25 23:50 Temperature Pulse Rate 83 72 Pulse Rate [Apical Monitor] 72 Respiratory Rate 18 Blood Pressure 202/77 H Pulse Oximetry 98 Oxygen Delivery Room Air 04/17/25 23:58 04/18/25 00:00 04/18/25 02:00 Temperature 98.9 F Pulse Rate 72 75 75 Pulse Rate [Apical Monitor] Respiratory Rate 18 Blood Pressure 202/77 H Pulse Oximetry 98 Oxygen Delivery 04/18/25 02:36 04/18/25 03:00 04/18/25 03:51 Temperature 98.8 F Pulse Rate 76 73 73 Pulse Rate [Apical Monitor] Respiratory Rate 18 18 Blood Pressure 153/68 H Pulse Oximetry 99 99 Oxygen Delivery Room Air 04/18/25 04:00 04/18/25 04:00 04/18/25 06:00 Temperature Pulse Rate 74 74 Pulse Rate [Apical Monitor] 73 Respiratory Rate Blood Pressure 153/68 H Pulse Oximetry Oxygen Delivery 04/18/25 07:50 04/18/25 09:18 04/18/25 11:37 Temperature 97.5 F L 98.6 F Pulse Rate 80 81 68 Pulse Rate [Apical Monitor] Respiratory Rate 20 12 Blood Pressure 152/58 H 132/54 L Pulse Oximetry 99 98 Oxygen Delivery 04/18/25 15:24 Temperature 97.7 F Pulse Rate 74 Pulse Rate [Apical Monitor] Respiratory Rate 16 Blood Pressure 154/62 H Pulse Oximetry 98 Oxygen Delivery Exam Narrative: Gen - NARD HEENT - Right pupil normal with pinpoint left pupil Neck - neck brace in place Chest - clear anteriorly, nml RR CV - RRR S1/S2. Tele showing episodes of possible AFib Abd - soft. NT/ND. +BS. - [place] secured draining clear yellow urine Ext - no pedal edema Neuro - alert and oriented x4. Left sided hemiparesis Skin - Warm, dry. Results Labs 04/18/25 02:16 04/18/25 12:45 Labs: Short CBC 04/18/25 Range/Units 02:16 WBC 9.0 (4.5-10.0) K/mm3 Hgb 9.4 L (14.0-18.0) g/dL Hct 28.6 L (42.0-52.0) % Plt Count 179 (150-375) k/mm3 BMP 04/18/25 04/18/25 02:17 12:45 Sodium 145 145 Potassium 2.5 L* 3.4 Chloride 113 H 114 H Carbon Dioxide 24 22 BUN 42 H 45 H Creatinine 2.53 H 2.69 H Glucose 166 H 193 H Calcium 8.8 8.9 Liver Function 04/18/25 Range/Units 02:17 Total Bilirubin 0.9 (0.2-1.3) mg/dL AST 36 (17-59) U/L ALT 18 (6-50) U/L Alkaline Phosphatase 150 H (38-126) U/L Albumin 3.0 L (3.5-5.1) g/dL
[2025-04-18 19:23] LABS: Partial Thromboplastin Time 49.2 Seconds (22.3-36.8)
[2025-04-19] VITALS (17 sets, daily range): BP systolic 128–166; BP diastolic 48–74; PULSE 64–101; RESP 14–18; TEMP 36.6–37.4; O2SAT 94–100
[2025-04-19 02:13] LABS: Partial Thromboplastin Time 117.5 Seconds (22.3-36.8)
[2025-04-19] MEDS: PIPERACILLIN/TAZOBACTAM SOD 2.25 GM in SODIUM CHLORIDE 0.9% IV 50 ML 100 ML IVPB ×3 (02:28→18:08)
[2025-04-19] MEDS: SIMVASTATIN 20 MG TABLET 40 MG BY MOUTH (08:27)
[2025-04-19] MEDS: ACETAMINOPHEN 325 MG TABLET 650 MG PO (08:27)
[2025-04-19] MEDS: PANTOPRAZOLE SODIUM IV 40 MG VIAL IV PUSH (08:27)
[2025-04-19] MEDS: LABETALOL HCL 100 MG TABLET FEED TUBE ×2 (08:28→21:10)
--- NOTE | 2025-04-19 08:32 | P.PNGI_ITS ---
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 Diabetes mellitus complication status: with kidney complications Diabetes mellitus complication detail: with chronic kidney disease Chronic kidney disease stage: stage 4 (severe) Qualified Code(s): E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; N18.4 - Chronic kidney disease, stage 4 (severe) Code(s): E11.9 - Type 2 diabetes mellitus without complications Status: Chronic (4) Atrial fibrillation: Code(s): I48.91 - Unspecified atrial fibrillation Status: Acute (5) Seizure: Code(s): R56.9 - Unspecified convulsions Status: Acute (6) Type II fracture of odontoid process: Code(s): S12.110A - Anterior displaced Type II dens fracture, initial encounter for closed fracture Status: Acute Subjective Date/time seen: 04/19/25 08:32 Interval history: he is tolerating tube feeding by ngt he is comfortable, wearing c-collar Review of Systems Review of Systems: All systems reviewed & are unremarkable except as noted in HPI and below Exam Narrative: Gen - NARD HEENT - Right pupil normal with pinpoint left pupil Neck - neck brace in place Chest - clear anteriorly, nml RR CV - RRR S1/S2. Abd - soft. NT/ND. +BS. - [place] secured draining clear yellow urine Ext - no pedal edema Neuro - alert and oriented x4. Left sided hemiparesis Skin - Warm, dry. Objective Data Vital Signs Vital Signs: Vital Signs - 24 hr 04/18/25 09:18 04/18/25 10:00 04/18/25 11:37 Temperature 98.6 F Pulse Rate 81 74 68 Respiratory Rate 12 Blood Pressure 132/54 L Pulse Oximetry 98 Oxygen Delivery 04/18/25 12:00 04/18/25 12:00 04/18/25 14:00 Temperature Pulse Rate 69 72 Respiratory Rate Blood Pressure Pulse Oximetry 98 Oxygen Delivery Room Air 04/18/25 15:24 04/18/25 16:00 04/18/25 16:00 Temperature 97.7 F Pulse Rate 74 70 Respiratory Rate 16 Blood Pressure 154/62 H Pulse Oximetry 98 98 Oxygen Delivery Room Air 04/18/25 18:00 04/18/25 19:50 04/18/25 20:00 Temperature 97.9 F Pulse Rate 76 78 78 Respiratory Rate 18 18 Blood Pressure 157/63 H Pulse Oximetry 97 97 Oxygen Delivery Room Air 04/18/25 20:00 04/18/25 20:52 04/18/25 22:00 Temperature Pulse Rate 76 71 63 Respiratory Rate Blood Pressure Pulse Oximetry Oxygen Delivery 04/18/25 23:47 04/19/25 00:00 04/19/25 00:00 Temperature 98.3 F Pulse Rate 68 68 71 Respiratory Rate 14 14 Blood Pressure 152/60 H Pulse Oximetry 98 98 Oxygen Delivery Room Air 04/19/25 02:00 04/19/25 04:00 04/19/25 04:00 Temperature 99.4 F Pulse Rate 75 76 73 Respiratory Rate 16 Blood Pressure 152/74 H Pulse Oximetry 100 Oxygen Delivery 04/19/25 04:00 04/19/25 06:00 04/19/25 08:00 Temperature 98.4 F Pulse Rate 76 77 82 Respiratory Rate 16 18 Blood Pressure 166/72 H Pulse Oximetry 100 98 Oxygen Delivery Room Air 04/19/25 08:28 Temperature Pulse Rate 77 Respiratory Rate Blood Pressure Pulse Oximetry Oxygen Delivery Intake/Output Intake/Output: Intake & Output 04/16/25 04/17/25 04/18/25 04/19/25 23:59 23:59 23:59 23:59 Intake Total 1686.3 1997.5 4079.6 680.5 Output Total 1200 1700 1600 400 Balance 486.3 297.5 2479.6 280.5 Meds/Results Medications: Active Medications Generic Name Dose Route Start Last Admin Trade Name Freq PRN Reason Stop Dose Admin Acetaminophen 650 mg 04/12/25 06:32 04/19/25 08:27 Acetaminophen 325 Mg Tablet PO 650 mg Q4H PRN Administration Mild Pain (1-3) or Fever Amlodipine Besylate 5 mg 04/18/25 01:15 04/19/25 08:27 Amlodipine Besylate 5 Mg Tablet FEED TUBE 5 mg DAILY OLENA Administration Diazepam 5 mg 04/12/25 20:46 04/13/25 16:17 Diazepam Inj (*Crx) 10 Mg/2 Ml Syringe IV PUSH 5 mg Q2H PRN Administration seizure Heparin Sodium (Porcine) 4,500 units 04/14/25 13:18 04/18/25 19:27 Heparin Sodium 5,000 Units/Ml Vial IV PUSH 4,500 units PRN PRN Administration aPTT less than 55 seconds Heparin Sodium (Porcine) 2,000 units 04/14/25 13:18 Heparin Sodium 5,000 Units/Ml Vial IV PUSH PRN PRN aPTT 55 - 70 seconds Hydralazine HCl 10 mg 04/15/25 22:00 04/19/25 06:49 Hydralazine Hcl 20 Mg/Ml Vial IV PUSH 10 mg Q8HR OLENA Administration Hydralazine HCl 10 mg 04/18/25 01:16 Hydralazine Hcl 20 Mg/Ml Vial IV PUSH Q4HR PRN SBP >180mmHg. Hydromorphone HCl 0.5 mg 04/12/25 15:36 04/17/25 00:45 Hydromorphone Hcl Inj (*Crx) 1 Mg/Ml Syr IV PUSH 0.5 mg Q3H PRN Administration Pain Rated 7-10 Piperacillin Sod/Tazobactam 50 mls @ 100 mls/hr 04/13/25 10:00 04/19/25 02:58 Sod 2.25 gm/ Sodium Chloride IVPB Infused Q8H OLENA Infusion Levetiracetam 750 mg/ Dextrose 107.5 mls @ 430 mls/hr 04/13/25 21:00 04/19/25 08:28 IVPB 430 mls/hr Q12HR OLENA Administration Heparin Sodium/Dextrose 25,000 units in 250 mls @ 9 mls/hr 04/14/25 13:30 04/19/25 02:30 Heparin Sodium/D5w 100 Units/Ml IV CONT 900 units/hr .Q24H OLENA 9 mls/hr Protocol Titration 900 UNITS/HR Cefazolin Sodium 1 gm/ Sodium 50 mls @ 100 mls/hr 04/20/25 12:00 Chloride IVPB 04/20/25 12:29 ONCE ONE Labetalol HCl 100 mg 04/18/25 01:15 04/19/25 08:28 Labetalol Hcl 100 Mg Tablet FEED TUBE 100 mg Q12HR OLENA Administration Ondansetron HCl 4 mg 04/12/25 06:32 Ondansetron Inj 4 Mg/2 Ml Vial IV PUSH Q4H PRN Nausea Pantoprazole Sodium 40 mg 04/13/25 09:10 04/19/25 08:27 Pantoprazole Sodium Iv 40 Mg Vial IV PUSH 40 mg QAM OLENA Administration Perflutren Lipid Microsphere 0 ml 04/17/25 15:58 Perflutren Lipid Microspheres 1.5 Ml Vial Diluted To 10 Ml Total Volume IV PUSH 04/20/25 15:59 ONCE PRN adequate visualization Protocol Simvastatin 40 mg 04/12/25 12:45 04/19/25 08:27 Simvastatin 20 Mg Tablet BY MOUTH 40 mg DAILY OLENA Administration Radiology Results: ITS Impressions Head CT 04/12/25 06:53 IMPRESSION: 1. No acute intracranial findings. Head/Neck CTA 04/12/25 07:10 IMPRESSION: CTA NECK: 1. Type II odontoid fracture. 2. No acute cervical arterial abnormality. 3. Mild esophageal wall thickening. 4. Lung apices with mild bronchiolitis. CTA HEAD: 1. No acute findings. Chest X-Ray 04/13/25 11:52 IMPRESSION: 1: Small interstitial and airspace opacities scattered throughout both lungs, more prominent on the left. Differential includes but is not limited to edema or pneumonia. Recommend follow-up to resolution. Brain MRI 04/13/25 13:21 IMPRESSION: 1. 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 2. Moderate nonspecific cerebral white matter disease, which likely represents chronic small vessel ischemic disease. 3. Type II odontoid fracture. Elbow X-Ray 04/15/25 15:04 Impression: No acute fracture or malalignment. Modified Barium Swallow 04/17/25 14:10 IMPRESSION: Pharyngeal dysphagia with laryngeal penetration with aspiration. Please correlate with speech pathologist findings and specific feeding recommendations. Abdomen X-Ray 04/17/25 20:13 IMPRESSION: Enteric tube terminates in the stomach but the sidehole is at the GE junction and advancement is recommended Labs Labs: Laboratory Results - last 24 hr 04/18/25 04/18/25 04/18/25 12:44 12:45 19:05 APTT 49.2 H Sodium 145 Potassium 3.4 Chloride 114 H Carbon Dioxide 22 Anion Gap 9 BUN 45 H Creatinine 2.69 H Estim Creat Clear Calc 15 Estimated GFR 23 L Glucose 193 H POC Capillary Glucose 191 H Calcium 8.9 Phosphorus 2.2 L Magnesium 2.9 H 04/18/25 04/19/25 04/19/25 23:52 01:42 06:19 APTT 117.5 H Sodium Potassium Chloride Carbon Dioxide Anion Gap BUN Creatinine Estim Creat Clear Calc Estimated GFR Glucose POC Capillary Glucose 174 H 175 H Calcium Phosphorus Magnesium
[2025-04-19 08:42] LABS: Hematocrit 27.4 % (42.0-52.0); Hemoglobin 9.0 g/dL (14.0-18.0); Mean Corpuscular HGB Conc 32.8 g/dl (32-36); Mean Corpuscular Hemoglobin 32.1 pg (26-34); Mean Corpuscular Volume 97.9 fl (80-100); Platelet Count Result 176 k/mm3 (150-375); Red Blood Count 2.80 M/mm3 (4.6-6.20); White Blood Count 10.3 K/mm3 (4.5-10.0)
[2025-04-19 08:55] LABS: Partial Thromboplastin Time 62.7 Seconds (22.3-36.8)
[2025-04-19 09:01] LABS: Albumin Level 2.8 g/dL (3.5-5.1); Anion Gap 7 mmol/L (4-12); Blood Urea Nitrogen 50 mg/dL (9-20); Calcium 8.7 mg/dL (8.4-10.2); Carbon Dioxide 23 mmol/L (22-30); Chloride 114 mmol/L (98-107); Estimated CRCL calculation 14 ml/min; Estimated Glomerular Filt Rate 22; Glucose 183 mg/dL (65-110); Magnesium 2.6 mg/dL (1.6-2.3); Potassium 3.4 mmol/L (3.4-5.0); Sodium 144 mmol/L (137-145)
[2025-04-19 09:55] LABS: Thyroid Stimulating Hormone Reflex 3.970 uIU/mL (0.465-4.68)
--- NOTE | 2025-04-19 14:34 | PM.IMPN ---
Progress Note: A&P Assessment and Plan (1) Seizure: Code(s): R56.9 - Unspecified convulsions Status: Acute Assessment and Plan: Patient presented with AMS and shaking episode in the bed. EMS was called. Patient was in a postictal state after the event Head CT with no acute intracranial findings. CTA neck showed type 2 odontoid fracture. No acute cervical arterial abnormality. Mild esophageal wall thickening. Lung apices with mild bronchiolitis. Daily chronic alcohol drinker. UDS was all negative. Alcohol level <10 Probable seizure disorder - related to alcohol w/d?. Neurology consulted. He was started on Keppra and placed on seizure precautions. 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 Increased Keppra to 750 mg Q12h. EEG showing normal record. Metabolic acidosis on admission related to seizure. Improved with IV fluids with bicarb. Bicrab normal so changed to maintenance fluids. IV fluids stopped since tolerating TF. Continue seizure precautions. (2) Dysphagia: Code(s): R13.10 - Dysphagia, unspecified Status: Acute Assessment and Plan: Speech therapy felt patient could tolerate ice chips but otherwise should remain NPO early in his hospital course Plan was for hospice but now more awake and alert Bedside swallow evaluation was poor so MBS performed 04/17 showing patient should remain NPO. Spoke with patient and family at bedside (with his permission) and now wants PEG placement. He understands that he may never be able to swallow safely again NGT placed for enteral nutrition. GI consulted. Continue ST. Plan for PEG tomorrow. NPO after midnight. Stop Heparin drip prior to procedure. (3) AMS (altered mental status): Qualifiers: Altered mental status type: unspecified Qualified Code(s): R41.82 - Altered mental status, unspecified Code(s): R41.82 - Altered mental status, unspecified Status: Acute Assessment and Plan: AMS felt related to seizure. AMS resolving Continue to monitor. (4) Type II fracture of odontoid process: Code(s): S12.110A - Anterior displaced Type II dens fracture, initial encounter for closed fracture Status: Acute Assessment and Plan: Patient presented with seizure-like activity CTA neck showed type 2 odontoid fracture. Patient was placed in [place] collar. Neurosurgery was consulted and appreciate their input No plans for surgical repair. PT/OT ordered with instructions from neurosurgery (5) Essential (primary) hypertension: Code(s): I10 - Essential (primary) hypertension Status: Chronic Assessment and Plan: BP elevated here and this has been long standing. Only on labetalol at home. Was on IV labetalol and IV hydralazine to control BP No acute CVA noted by imaging. NGT placed and labetolol changed to NG route and Norvasc was added. BP better controlled. Monitor for today. (6) Atrial fibrillation: Code(s): I48.91 - Unspecified atrial fibrillation Status: Acute Assessment and Plan: Atrial fibrillation with mild RVR 04/14/25. Labetalol scheduled. With AFib he was switched to heparin drip [id number]. TSH normal He has converted to NSR with still having episodes of AFib Follow on tele. Continue Heparin drip until PEG in place. (7) Diabetes mellitus: Qualifiers: Chronic kidney disease stage: stage 4 (severe) Diabetes mellitus complication detail: with chronic kidney disease Diabetes mellitus complication status: with kidney complications Diabetes mellitus terminal make up operator insulin use: without terminal make up operator use Diabetes mellitus type: type 2 Qualified Code(s): E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; N18.4 - Chronic kidney disease, stage 4 (severe) Code(s): E11.9 - Type 2 diabetes mellitus without complications Status: Chronic Assessment and Plan: A1c 6.1% in Feb. The patient's blood glucose was reviewed on 04/19 Glucose mildly elevated but stable Continue AccuCheks covering with sliding scale. Hypoglycemia protocol available as needed. Continue to monitor Plan Chronic alcohol use - UDS was negative. Alcohol level <10. CIWA <3. CIWA protocol stopped CKD stage 4 - baseline creatinine 2.5-3.5. Cr stable and within his baseline. Good UOP. Mild bronchiolitis - Noted by CTA of neck. CXR showing small interstitial and airspace opacities scattered t/o both lungs. Consider aspiration vs CAP vs edema. BNP 25K. Influenza, RSV and COVID swab negative. Continue Zosyn IV. He remains on room air. Echo pending. DVT prophylaxis heparin drip Code status do not resuscitate Subjective Date/time seen: 04/19/25 14:34 Interval history: 84-year-old male with HTN, hyperlipidemia, CKD was brought in with altered mental status/seizure disorder. No complaints. Denies chest pain. Slept well. Apneic at times when sleeping noted by family. Exam Narrative: AF 99.4 128/52 68 17 97% ra Gen - NARD HEENT - NGT secured. Neck - neck brace in place Chest - clear anteriorly, nml RR CV - RRR S1/S2. Tele showing no significant dysrhythmias Abd - soft. NT/ND. +BS. - [place] secured draining clear yellow urine Ext - no pedal edema Neuro - alert and appropriate Skin - Warm, dry. Objective Data Vital Signs Vital Signs: Vital Signs - 24 hr 04/18/25 15:24 04/18/25 16:00 04/18/25 16:00 Temperature 97.7 F Pulse Rate 74 70 Respiratory Rate 16 Blood Pressure 154/62 H Pulse Oximetry 98 98 Oxygen Delivery Room Air 04/18/25 18:00 04/18/25 19:50 04/18/25 20:00 Temperature 97.9 F Pulse Rate 76 78 78 Respiratory Rate 18 18 Blood Pressure 157/63 H Pulse Oximetry 97 97 Oxygen Delivery Room Air 04/18/25 20:00 04/18/25 20:52 04/18/25 22:00 Temperature Pulse Rate 76 71 63 Respiratory Rate Blood Pressure Pulse Oximetry Oxygen Delivery 04/18/25 23:47 04/19/25 00:00 04/19/25 00:00 Temperature 98.3 F Pulse Rate 68 68 71 Respiratory Rate 14 14 Blood Pressure 152/60 H Pulse Oximetry 98 98 Oxygen Delivery Room Air 04/19/25 02:00 04/19/25 04:00 04/19/25 04:00 Temperature 99.4 F Pulse Rate 75 76 73 Respiratory Rate 16 Blood Pressure 152/74 H Pulse Oximetry 100 Oxygen Delivery 04/19/25 04:00 04/19/25 06:00 04/19/25 08:00 Temperature 98.4 F Pulse Rate 76 77 82 Respiratory Rate 16 18 Blood Pressure 166/72 H Pulse Oximetry 100 98 Oxygen Delivery Room Air 04/19/25 08:00 04/19/25 08:00 04/19/25 08:28 Temperature Pulse Rate 83 77 Respiratory Rate Blood Pressure Pulse Oximetry 98 Oxygen Delivery Room Air 04/19/25 10:00 04/19/25 12:00 Temperature 99.4 F Pulse Rate 71 68 Respiratory Rate 17 Blood Pressure 128/52 L Pulse Oximetry 97 Oxygen Delivery Intake/Output Intake/Output: Intake & Output 04/16/25 04/17/25 04/18/25 04/19/25 23:59 23:59 23:59 23:59 Intake Total 1686.3 1997.5 4079.6 794.2 Output Total 1200 1700 1600 400 Balance 486.3 297.5 2479.6 394.2 Meds/Results Medications: Active Medications Generic Name Dose Route Start Last Admin Trade Name Freq PRN Reason Stop Dose Admin Acetaminophen 650 mg 04/12/25 06:32 04/19/25 08:27 Acetaminophen 325 Mg Tablet PO 650 mg Q4H PRN Administration Mild Pain (1-3) or Fever Amlodipine Besylate 5 mg 04/18/25 01:15 04/19/25 08:27 Amlodipine Besylate 5 Mg Tablet FEED TUBE 5 mg DAILY OLENA Administration Diazepam 5 mg 04/12/25 20:46 04/13/25 16:17 Diazepam Inj (*Crx) 10 Mg/2 Ml Syringe IV PUSH 5 mg Q2H PRN Administration seizure Heparin Sodium (Porcine) 4,500 units 04/14/25 13:18 04/18/25 19:27 Heparin Sodium 5,000 Units/Ml Vial IV PUSH 4,500 units PRN PRN Administration aPTT less than 55 seconds Heparin Sodium (Porcine) 2,000 units 04/14/25 13:18 04/19/25 09:35 Heparin Sodium 5,000 Units/Ml Vial IV PUSH 2,000 units PRN PRN Administration aPTT 55 - 70 seconds Hydralazine HCl 10 mg 04/15/25 22:00 04/19/25 13:36 Hydralazine Hcl 20 Mg/Ml Vial IV PUSH 10 mg Q8HR OLENA Administration Hydralazine HCl 10 mg 04/18/25 01:16 Hydralazine Hcl 20 Mg/Ml Vial IV PUSH Q4HR PRN SBP >180mmHg. Hydromorphone HCl 0.5 mg 04/12/25 15:36 04/17/25 00:45 Hydromorphone Hcl Inj (*Crx) 1 Mg/Ml Syr IV PUSH 0.5 mg Q3H PRN Administration Pain Rated 7-10 Piperacillin Sod/Tazobactam 50 mls @ 100 mls/hr 04/13/25 10:00 04/19/25 10:29 Sod 2.25 gm/ Sodium Chloride IVPB Infused Q8H OLENA Infusion Levetiracetam 750 mg/ Dextrose 107.5 mls @ 430 mls/hr 04/13/25 21:00 04/19/25 08:28 IVPB 430 mls/hr Q12HR OLENA Administration Heparin Sodium/Dextrose 25,000 units in 250 mls @ 10 mls/hr 04/14/25 13:30 04/19/25 09:35 Heparin Sodium/D5w 100 Units/Ml IV CONT 1,000 units/hr .Q24H OLENA 10 mls/hr Protocol Titration 1,000 UNITS/HR Cefazolin Sodium 1 gm/ Sodium 50 mls @ 100 mls/hr 04/20/25 12:00 Chloride IVPB 04/20/25 12:29 ONCE ONE Labetalol HCl 100 mg 04/18/25 01:15 04/19/25 08:28 Labetalol Hcl 100 Mg Tablet FEED TUBE 100 mg Q12HR OLENA Administration Ondansetron HCl 4 mg 04/12/25 06:32 Ondansetron Inj 4 Mg/2 Ml Vial IV PUSH Q4H PRN Nausea Pantoprazole Sodium 40 mg 04/13/25 09:10 04/19/25 08:27 Pantoprazole Sodium Iv 40 Mg Vial IV PUSH 40 mg QAM OLENA Administration Perflutren Lipid Microsphere 0 ml 04/17/25 15:58 Perflutren Lipid Microspheres 1.5 Ml Vial Diluted To 10 Ml Total Volume IV PUSH 04/20/25 15:59 ONCE PRN adequate visualization Protocol Simvastatin 40 mg 04/12/25 12:45 04/19/25 08:27 Simvastatin 20 Mg Tablet BY MOUTH 40 mg DAILY OLENA Administration Radiology Results: ITS Impressions Head CT 04/12/25 06:53 IMPRESSION: 1. No acute intracranial findings. Head/Neck CTA 04/12/25 07:10 IMPRESSION: CTA NECK: 1. Type II odontoid fracture. 2. No acute cervical arterial abnormality. 3. Mild esophageal wall thickening. 4. Lung apices with mild bronchiolitis. CTA HEAD: 1. No acute findings. Chest X-Ray 04/13/25 11:52 IMPRESSION: 1: Small interstitial and airspace opacities scattered throughout both lungs, more prominent on the left. Differential includes but is not limited to edema or pneumonia. Recommend follow-up to resolution. Brain MRI 04/13/25 13:21 IMPRESSION: 1. 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 2. Moderate nonspecific cerebral white matter disease, which likely represents chronic small vessel ischemic disease. 3. Type II odontoid fracture. Elbow X-Ray 04/15/25 15:04 Impression: No acute fracture or malalignment. Modified Barium Swallow 04/17/25 14:10 IMPRESSION: Pharyngeal dysphagia with laryngeal penetration with aspiration. Please correlate with speech pathologist findings and specific feeding recommendations. Abdomen X-Ray 04/17/25 20:13 IMPRESSION: Enteric tube terminates in the stomach but the sidehole is at the GE junction and advancement is recommended Labs Labs: Laboratory Results - last 24 hr 04/18/25 04/18/25 04/19/25 19:05 23:52 01:42 WBC RBC Hgb Hct MCV MCH MCHC RDW Plt Count MPV APTT 49.2 H 117.5 H Sodium Potassium Chloride Carbon Dioxide Anion Gap BUN Creatinine Estim Creat Clear Calc Estimated GFR Glucose POC Capillary Glucose 174 H Calcium Phosphorus Magnesium Albumin TSH (Reflex) 04/19/25 04/19/25 06:19 08:35 WBC 10.3 H RBC 2.80 L Hgb 9.0 L Hct 27.4 L MCV 97.9 MCH 32.1 MCHC 32.8 RDW 14.8 H Plt Count 176 MPV 9.8 APTT 62.7 H Sodium 144 Potassium 3.4 Chloride 114 H Carbon Dioxide 23 Anion Gap 7 BUN 50 H Creatinine 2.79 H Estim Creat Clear Calc 14 Estimated GFR 22 L Glucose 183 H POC Capillary Glucose 175 H Calcium 8.7 Phosphorus 2.8 Magnesium 2.6 H Albumin 2.8 L TSH (Reflex) 3.970
[2025-04-19 16:06] LABS: Partial Thromboplastin Time 120.3 Seconds (22.3-36.8)
[2025-04-19] MEDS: HEPARIN SOD/D5W 100 UNITS/ML 25,000 UNITS/250 ML BAG 9 UNITS IV CONT (16:06)
[2025-04-19] MEDS: POTASSIUM CHLORIDE 20 MEQ PACKET (FOR LIQUID) 40 MEQ FEED TUBE (18:08)
[2025-04-20] VITALS (27 sets, daily range): BP systolic 108–205; BP diastolic 51–87; PULSE 57–90; RESP 14–22; TEMP 36.3–37.4; O2SAT 97–99
[2025-04-20] MEDS: PIPERACILLIN/TAZOBACTAM SOD 2.25 GM in SODIUM CHLORIDE 0.9% IV 50 ML 100 ML IVPB ×2 (02:41→09:02)
--- NOTE | 2025-04-20 03:26 | PCRCNOTE ---
Apnea link procedure ended early. Per RN patient disconnected himself from the device along with other connections. Testing can be attempted again tonigh, if needed.
[2025-04-20 06:10] LABS: Hematocrit 29.0 % (42.0-52.0); Hemoglobin 9.4 g/dL (14.0-18.0); Immature Granulocyte Percent A 0.7 % (0-0.5); Lymphocytes Absolute Auto 1.29 K/mm3 (0.9-3.2); Mean Corpuscular HGB Conc 32.4 g/dl (32-36); Mean Corpuscular Hemoglobin 32.3 pg (26-34); Mean Corpuscular Volume 99.7 fl (80-100); Nucleated Red Blood Cells Absolute Auto 0.000 K/mm3 (0.0-0.012); Nucleated Red Blood Cells Perc 0.0 % (0.0-0.2); Platelet Count Result 193 k/mm3 (150-375); Red Blood Count 2.91 M/mm3 (4.6-6.20); White Blood Count 11.6 K/mm3 (4.5-10.0)
[2025-04-20 06:22] LABS: INR 1.1; Prothrombin Time 14.3 Seconds (11.1-14.7)
[2025-04-20 06:23] LABS: Partial Thromboplastin Time 34.1 Seconds (22.3-36.8)
[2025-04-20 06:36] LABS: Alanine Aminotransferase 29 U/L (6-50); Albumin Level 3.1 g/dL (3.5-5.1); Alkaline Phosphatase 142 U/L (38-126); Anion Gap 8 mmol/L (4-12); Aspartate Amino Transferase 38 U/L (17-59); Bilirubin,Total 0.6 mg/dL (0.2-1.3); Blood Urea Nitrogen 54 mg/dL (9-20); Calcium 9.1 mg/dL (8.4-10.2); Carbon Dioxide 22 mmol/L (22-30); Chloride 113 mmol/L (98-107); Estimated CRCL calculation 14 ml/min; Estimated Glomerular Filt Rate 21; Glucose 135 mg/dL (65-110); Magnesium 2.4 mg/dL (1.6-2.3); Potassium 4.0 mmol/L (3.4-5.0); Sodium 143 mmol/L (137-145); Total Protein 6.4 g/dL (6.3-8.2)
[2025-04-20] MEDS: PANTOPRAZOLE SODIUM IV 40 MG VIAL IV PUSH (08:08)
[2025-04-20] MEDS: LABETALOL HCL 100 MG TABLET FEED TUBE ×2 (09:00→20:36)
[2025-04-20] MEDS: SIMVASTATIN 20 MG TABLET 40 MG BY MOUTH (09:00)
[2025-04-20] MEDS: LACTATED RINGERS 1,000 ML 150 ML IV CONT (09:52)
--- NOTE | 2025-04-20 09:53 | PCPTNOTE ---
Attempted PT evaluation, pt had bedrest orders (waiting for hospitalist to call back to see if pt can come off bedrest) and Pt leaving to get a Peg Tube. Will follow.
--- NOTE | 2025-04-20 10:02 | SUR.PREOP ---
Addressed with Dr. Hoffman if he wanted patient to receive antibiotics for procedure and notified him that patient came from floor receiving Zosyn. No new orders per and will proceed with procedure.
--- NOTE | 2025-04-20 10:06 | PM.IMPN ---
Progress Note: A&P Assessment and Plan (1) Seizure: Code(s): R56.9 - Unspecified convulsions Status: Acute Assessment and Plan: Patient presented with AMS and shaking episode in the bed. EMS was called. Patient was in a postictal state after the event Head CT with no acute intracranial findings. CTA neck showed type 2 odontoid fracture. No acute cervical arterial abnormality. Mild esophageal wall thickening. Lung apices with mild bronchiolitis. Daily chronic alcohol drinker. UDS was all negative. Alcohol level <10 Probable seizure disorder - related to alcohol w/d?. Neurology consulted. He was started on Keppra and placed on seizure precautions. 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 Increased Keppra to 750 mg Q12h. EEG showing normal record. Metabolic acidosis on admission related to seizure. Improved with IV fluids with bicarb. Bicrab normal so changed to maintenance fluids. IV fluids stopped since tolerating TF. Continue seizure precautions. Continue Keppra. (2) Dysphagia: Code(s): R13.10 - Dysphagia, unspecified Status: Acute Assessment and Plan: Speech therapy felt patient could tolerate ice chips but otherwise should remain NPO early in his hospital course Plan was for hospice but now more awake and alert Bedside swallow evaluation was poor so MBS performed 04/17 showing patient should remain NPO. Spoke with patient and family at bedside (with his permission) and now wants PEG placement. He understands that he may never be able to swallow safely again NGT placed for enteral nutrition. GI consulted. Patietn to have PEG placed today. Continue ST. (3) AMS (altered mental status): Qualifiers: Altered mental status type: unspecified Qualified Code(s): R41.82 - Altered mental status, unspecified Code(s): R41.82 - Altered mental status, unspecified Status: Acute Assessment and Plan: AMS felt related to seizure. AMS resolving Continue to monitor. (4) Type II fracture of odontoid process: Code(s): S12.110A - Anterior displaced Type II dens fracture, initial encounter for closed fracture Status: Acute Assessment and Plan: Patient presented with seizure-like activity CTA neck showed type 2 odontoid fracture. Patient was placed in [place] collar. Neurosurgery was consulted and appreciate their input No plans for surgical repair. PT/OT ordered with instructions from neurosurgery (5) Essential (primary) hypertension: Code(s): I10 - Essential (primary) hypertension Status: Chronic Assessment and Plan: BP elevated here and this has been long standing. Only on labetalol at home. Was on IV labetalol and IV hydralazine to control BP No acute CVA noted by imaging. NGT placed and labetolol changed to NG route and Norvasc was added. BP better controlled. Monitor for today. (6) Atrial fibrillation: Code(s): I48.91 - Unspecified atrial fibrillation Status: Acute Assessment and Plan: Atrial fibrillation with mild RVR 04/14/25. Labetalol scheduled. With AFib he was switched to heparin drip [id number]. TSH normal He has converted to NSR with still having episodes of AFib Follow on tele. Continue Heparin drip until PEG in place. Add Eliquis when able. (7) Diabetes mellitus: Qualifiers: Chronic kidney disease stage: stage 4 (severe) Diabetes mellitus complication detail: with chronic kidney disease Diabetes mellitus complication status: with kidney complications Diabetes mellitus intermediate designer insulin use: without jail use Diabetes mellitus type: type 2 Qualified Code(s): E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; N18.4 - Chronic kidney disease, stage 4 (severe) Code(s): E11.9 - Type 2 diabetes mellitus without complications Status: Chronic Assessment and Plan: A1c 6.1% in Feb. The patient's blood glucose was reviewed on 04/20 Glucose reasonably well controlled Continue AccuCheks covering with sliding scale. Hypoglycemia protocol available as needed. Continue to monitor Plan Chronic alcohol use - UDS was negative. Alcohol level <10. CIWA <3. CIWA protocol stopped CKD stage 4 - baseline creatinine 2.5-3.5. Cr stable and within his baseline. Good UOP. Mild bronchiolitis - Noted by CTA of neck. CXR showing small interstitial and airspace opacities scattered t/o both lungs. Consider aspiration vs CAP vs edema. BNP 25K. Influenza, RSV and COVID swab negative. Will transition Zosyn IV to Augmentin per GTube. He remains on room air. Echo pending. DVT prophylaxis heparin drip Code status do not resuscitate Subjective Date/time seen: 04/20/25 10:06 Interval history: 84-year-old male with HTN, hyperlipidemia, CKD was brought in with altered mental status/seizure disorder. No problems overnight. No CP or SOB. No n/v. Exam Narrative: AF 97.3 145/57 67 18 99% ra Gen - NARD HEENT - NGT secured. Neck - neck brace in place Chest - clear anteriorly and in the flanks, nml RR CV - RRR S1/S2. Tele showing no significant dysrhythmias Abd - soft. NT/ND. +BS. - [place] secured draining clear yellow urine Ext - no pedal edema Neuro - alert and appropriate Skin - Warm, dry. Objective Data Vital Signs Vital Signs: Vital Signs - 24 hr 04/19/25 12:00 04/19/25 12:00 04/19/25 12:00 Temperature 99.4 F Pulse Rate 68 65 Respiratory Rate 17 Blood Pressure 128/52 L Pulse Oximetry 97 98 Oxygen Delivery Room Air 04/19/25 14:00 04/19/25 16:00 04/19/25 16:00 Temperature 97.9 F Pulse Rate 72 74 78 Respiratory Rate 18 Blood Pressure 155/62 H Pulse Oximetry 98 Oxygen Delivery 04/19/25 16:00 04/19/25 18:00 04/19/25 20:00 Temperature 98 F Pulse Rate 77 79 Respiratory Rate 16 Blood Pressure 165/57 H Pulse Oximetry 98 99 Oxygen Delivery Room Air 04/19/25 20:00 04/19/25 20:51 04/19/25 21:10 Temperature Pulse Rate 101 H 79 99 Respiratory Rate 16 Blood Pressure Pulse Oximetry 99 Oxygen Delivery Room Air 04/19/25 22:00 04/19/25 22:38 04/19/25 23:45 Temperature 97.9 F Pulse Rate 64 75 Respiratory Rate 18 Blood Pressure 136/48 L Pulse Oximetry 94 98 Oxygen Delivery Room Air 04/20/25 00:00 04/20/25 00:15 04/20/25 02:00 Temperature Pulse Rate 67 75 76 Respiratory Rate 18 Blood Pressure Pulse Oximetry 98 Oxygen Delivery Room Air 04/20/25 03:24 04/20/25 03:30 04/20/25 04:00 Temperature 98.6 F Pulse Rate 73 73 79 Respiratory Rate 16 16 Blood Pressure 167/64 H Pulse Oximetry 99 99 Oxygen Delivery Room Air 04/20/25 05:51 04/20/25 08:00 04/20/25 09:00 Temperature 98.2 F Pulse Rate 78 72 81 Respiratory Rate 16 Blood Pressure 182/76 H Pulse Oximetry 99 Oxygen Delivery 04/20/25 09:38 Temperature 97.3 F L Pulse Rate 67 Respiratory Rate 18 Blood Pressure 145/57 H Pulse Oximetry 99 Oxygen Delivery Room Air Intake/Output Intake/Output: Intake & Output 04/17/25 04/18/25 04/19/25 04/20/25 23:59 23:59 23:59 23:59 Intake Total 1997.5 4079.6 1093.4 1342.9 Output Total 1700 1600 750 725 Balance 297.5 2479.6 343.4 617.9 Meds/Results Medications: Active Medications Generic Name Dose Route Start Last Admin Trade Name Freq PRN Reason Stop Dose Admin Acetaminophen 650 mg 04/12/25 06:32 04/19/25 08:27 Acetaminophen 325 Mg Tablet PO 650 mg Q4H PRN Administration Mild Pain (1-3) or Fever Amlodipine Besylate 5 mg 04/18/25 01:15 04/20/25 09:00 Amlodipine Besylate 5 Mg Tablet FEED TUBE 5 mg DAILY OLENA Administration Diazepam 5 mg 04/12/25 20:46 04/13/25 16:17 Diazepam Inj (*Crx) 10 Mg/2 Ml Syringe IV PUSH 5 mg Q2H PRN Administration seizure Hydralazine HCl 10 mg 04/15/25 22:00 04/20/25 06:03 Hydralazine Hcl 20 Mg/Ml Vial IV PUSH 10 mg Q8HR OLENA Administration Hydralazine HCl 10 mg 04/18/25 01:16 04/20/25 08:03 Hydralazine Hcl 20 Mg/Ml Vial IV PUSH 10 mg Q4HR PRN Administration SBP >180mmHg. Hydromorphone HCl 0.5 mg 04/12/25 15:36 04/17/25 00:45 Hydromorphone Hcl Inj (*Crx) 1 Mg/Ml Syr IV PUSH 0.5 mg Q3H PRN Administration Pain Rated 7-10 Piperacillin Sod/Tazobactam 50 mls @ 100 mls/hr 04/13/25 10:00 04/20/25 09:57 Sod 2.25 gm/ Sodium Chloride IVPB Infused Q8H OLENA Infusion Levetiracetam 750 mg/ Dextrose 107.5 mls @ 430 mls/hr 04/13/25 21:00 04/20/25 09:59 IVPB Infused Q12HR OLENA Infusion Cefazolin Sodium 1 gm/ Sodium 50 mls @ 100 mls/hr 04/20/25 12:00 Chloride IVPB 04/20/25 12:29 ONCE ONE Lactated Ringer's 1,000 mls @ 150 mls/hr 04/20/25 09:45 04/20/25 09:52 Lr - Lactated Ringers Iv IV CONT 150 mls/hr .Q6H40M OLENA Administration Labetalol HCl 100 mg 04/18/25 01:15 04/20/25 09:00 Labetalol Hcl 100 Mg Tablet FEED TUBE 100 mg Q12HR OLENA Administration Ondansetron HCl 4 mg 04/12/25 06:32 Ondansetron Inj 4 Mg/2 Ml Vial IV PUSH Q4H PRN Nausea Pantoprazole Sodium 40 mg 04/13/25 09:10 04/20/25 08:08 Pantoprazole Sodium Iv 40 Mg Vial IV PUSH 40 mg QAM OLENA Administration Perflutren Lipid Microsphere 0 ml 04/17/25 15:58 Perflutren Lipid Microspheres 1.5 Ml Vial Diluted To 10 Ml Total Volume IV PUSH 04/20/25 15:59 ONCE PRN adequate visualization Protocol Simvastatin 40 mg 04/12/25 12:45 04/20/25 09:00 Simvastatin 20 Mg Tablet BY MOUTH 40 mg DAILY OLENA Administration Radiology Results: ITS Impressions Head CT 04/12/25 06:53 IMPRESSION: 1. No acute intracranial findings. Head/Neck CTA 04/12/25 07:10 IMPRESSION: CTA NECK: 1. Type II odontoid fracture. 2. No acute cervical arterial abnormality. 3. Mild esophageal wall thickening. 4. Lung apices with mild bronchiolitis. CTA HEAD: 1. No acute findings. Chest X-Ray 04/13/25 11:52 IMPRESSION: 1: Small interstitial and airspace opacities scattered throughout both lungs, more prominent on the left. Differential includes but is not limited to edema or pneumonia. Recommend follow-up to resolution. Brain MRI 04/13/25 13:21 IMPRESSION: 1. 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 2. Moderate nonspecific cerebral white matter disease, which likely represents chronic small vessel ischemic disease. 3. Type II odontoid fracture. Elbow X-Ray 04/15/25 15:04 Impression: No acute fracture or malalignment. Modified Barium Swallow 04/17/25 14:10 IMPRESSION: Pharyngeal dysphagia with laryngeal penetration with aspiration. Please correlate with speech pathologist findings and specific feeding recommendations. Abdomen X-Ray 04/17/25 20:13 IMPRESSION: Enteric tube terminates in the stomach but the sidehole is at the GE junction and advancement is recommended Labs Labs: Laboratory Results - last 24 hr 04/19/25 04/19/25 04/19/25 15:37 18:31 23:34 WBC RBC Hgb Hct MCV MCH MCHC RDW Plt Count MPV Immature Gran % (Auto) Neut % (Auto) Lymph % (Auto) [place] % (Auto) Eos % (Auto) Baso % (Auto) Lymph # (Auto) [place] # (Auto) Eos # (Auto) Baso # (Auto) Abs Immat Gran (auto) Absolute Neuts (auto) Absolute Nucleated RBC Nucleated RBC % PT INR APTT 120.3 H Sodium Potassium Chloride Carbon Dioxide Anion Gap BUN Creatinine Estim Creat Clear Calc Estimated GFR Glucose POC Capillary Glucose 166 H 184 H Calcium Magnesium Total Bilirubin AST ALT Alkaline Phosphatase Total Protein Albumin 04/20/25 04/20/25 06:00 09:51 WBC 11.6 H RBC 2.91 L Hgb 9.4 L Hct 29.0 L MCV 99.7 MCH 32.3 MCHC 32.4 RDW 14.9 H Plt Count 193 MPV 9.9 Immature Gran % (Auto) 0.7 H Neut % (Auto) 70.5 Lymph % (Auto) 11.1 L [place] % (Auto) 10.7 H Eos % (Auto) 6.6 H Baso % (Auto) 0.4 Lymph # (Auto) 1.29 [place] # (Auto) 1.2 H Eos # (Auto) 0.8 H Baso # (Auto) 0.1 Abs Immat Gran (auto) 0.08 H Absolute Neuts (auto) 8.2 H Absolute Nucleated RBC 0.000 Nucleated RBC % 0.0 PT 14.3 INR 1.1 APTT 34.1 Sodium 143 Potassium 4.0 Chloride 113 H Carbon Dioxide 22 Anion Gap 8 BUN 54 H Creatinine 2.91 H Estim Creat Clear Calc 14 Estimated GFR 21 L Glucose 135 H POC Capillary Glucose 151 H Calcium 9.1 Magnesium 2.4 H Total Bilirubin 0.6 AST 38 ALT 29 Alkaline Phosphatase 142 H Total Protein 6.4 Albumin 3.1 L
--- NOTE | 2025-04-20 10:22 | WPDANESEPPF ---
Anes - Initial Pre Proc Eval Procedure: Operation Date: 04/20/25 10:00 Proposed Procedures p Percutaneous Endoscopic Gastrostomy - Ryan Dewitt MD Date/Time: 04/20/25 10:22 Surgeon: Lindy Ramos MD Pre Op Diagnosis: AMS Seizure Patient Data Age: 84 Gender: M Height: 1.63 m Weight: 56.5 kg Last Vital Signs Temp 36.3 C L 04/20/25 09:38 Pulse 67 04/20/25 09:38 Resp 18 04/20/25 09:38 BP 145/57 H 04/20/25 09:38 Pulse Ox 99 04/20/25 09:38 O2 Del Method Room Air 04/20/25 09:38 O2 Flow Rate 1 04/14/25 00:00 FiO2 28 04/17/25 03:51 Allergies Allergy/AdvReac Type Severity Reaction Status Date / Time allopurinol Allergy Unknown Skin Verified 04/20/25 09:44 Reaction diclofenac Allergy Unknown Pt doesn't Verified 04/20/25 09:44 know doxycycline Allergy Unknown hands Verified 04/20/25 09:44 probenecid Allergy Unknown Skin Verified 04/20/25 09:44 Reaction Home Medications ?Medication ?Instructions ?Recorded ?Confirmed ?Type magnesium 250 mg tablet 250 mg PO .3 times weekly 12/03/23 04/12/25 History febuxostat 80 mg tablet 80 mg PO DAILY #90 tabs 06/03/24 04/12/25 Rx furosemide 40 mg tablet See Rx Instructions .Route 07/30/24 04/12/25 Rx Held on 02/22/25. .COMPLEX #90 tabs Instructions: Resume on 02/28/25. Talk to your gauge and instrument inspector before you restart furosemide simvastatin 40 mg tablet See Rx Instructions .Route 07/30/24 04/12/25 Rx .COMPLEX #90 tabs labetalol 100 mg tablet See Rx Instructions .Route 01/19/25 04/12/25 Rx .COMPLEX #180 tabs Laboratory Tests 04/19/25 04/19/25 04/19/25 15:37 18:31 23:34 WBC RBC Hgb Hct MCV MCH MCHC RDW Plt Count MPV Immature Gran % (Auto) Neut % (Auto) Lymph % (Auto) [place] % (Auto) Eos % (Auto) Baso % (Auto) Lymph # (Auto) [place] # (Auto) Eos # (Auto) Baso # (Auto) Abs Immat Gran (auto) Absolute Neuts (auto) Absolute Nucleated RBC Nucleated RBC % PT INR APTT 120.3 H Seconds (22.3-36.8) Sodium Potassium Chloride Carbon Dioxide Anion Gap BUN Creatinine Estim Creat Clear Calc Estimated GFR Glucose POC Capillary Glucose 166 H mg/dl 184 H mg/dl (65-105) (65-105) Calcium Magnesium Total Bilirubin AST ALT Alkaline Phosphatase Total Protein Albumin 04/20/25 04/20/25 06:00 09:51 WBC 11.6 H K/mm3 (4.5-10.0) RBC 2.91 L M/mm3 (4.6-6.20) Hgb 9.4 L g/dL (14.0-18.0) Hct 29.0 L % (42.0-52.0) MCV 99.7 fl (80-100) MCH 32.3 pg (26-34) MCHC 32.4 g/dl (32-36) RDW 14.9 H % (11.5-14.5) Plt Count 193 k/mm3 (150-375) MPV 9.9 fl (7.4-10.4) Immature Gran % (Auto) 0.7 H % (0-0.5) Neut % (Auto) 70.5 % (45.5-73.1) Lymph % (Auto) 11.1 L % (18.3-44.2) [place] % (Auto) 10.7 H % (2.6-8.5) Eos % (Auto) 6.6 H % (0-4.4) Baso % (Auto) 0.4 % (0.2-1.2) Lymph # (Auto) 1.29 K/mm3 (0.9-3.2) [place] # (Auto) 1.2 H K/mm3 (0.1-0.6) Eos # (Auto) 0.8 H K/mm3 (0-0.3) Baso # (Auto) 0.1 K/mm3 (0.0-0.1) Abs Immat Gran (auto) 0.08 H K/mm3 (0.00-0.031) Absolute Neuts (auto) 8.2 H K/mm3 (1.3-6.7) Absolute Nucleated RBC 0.000 K/mm3 (0.0-0.012) Nucleated RBC % 0.0 % (0.0-0.2) PT 14.3 Seconds (11.1-14.7) INR 1.1 APTT 34.1 Seconds (22.3-36.8) Sodium 143 mmol/L (137-145) Potassium 4.0 mmol/L (3.4-5.0) Chloride 113 H mmol/L (98-107) Carbon Dioxide 22 mmol/L (22-30) Anion Gap 8 mmol/L (4-12) BUN 54 H mg/dL (9-20) Creatinine 2.91 H mg/dL (0.7-1.3) Estim Creat Clear Calc 14 ml/min Estimated GFR 21 L (59 - ) Glucose 135 H mg/dL (65-110) POC Capillary Glucose 151 H mg/dl (65-105) Calcium 9.1 mg/dL (8.4-10.2) Magnesium 2.4 H mg/dL (1.6-2.3) Total Bilirubin 0.6 mg/dL (0.2-1.3) AST 38 U/L (17-59) ALT 29 U/L (6-50) Alkaline Phosphatase 142 H U/L (38-126) Total Protein 6.4 g/dL (6.3-8.2) Albumin 3.1 L g/dL (3.5-5.1) Patient hx anesthesia problems: none Family hx anesthesia problems: none Results Review: All pre-operative results and documents have been reviewed as part of the pre-operative evaluation. [facility] Past Medical History Medical History Encephalopathy Mixed hyperlipidemia NANDINI (acute kidney injury) Pneumonia Fluid overload Epistaxis r nares no bleeding site seen Gout, unspecified Gout CKD (chronic kidney disease) stage 4, GFR 15-29 ml/min Osteoarthrosis, localized, primary, involving lower leg Osteoarthrosis, localized, primary, involving hand Benign hypertension Atherosclerosis of aorta Lumbar stenosis Anemia in chronic kidney disease Diabetes mellitus Now diet controlled but required medications in the past Malignant neoplasm of prostate Surgical History Surgical History H/O cataract extraction History of appendectomy H/O laminectomy C3-C4 0913-21 History of carpal tunnel release History of repair of rotator cuff H/O arthroscopy of knee Family History Family History Mother Hypertension, Onset Age: 72 Father Malignant neoplasm of prostate, Onset Age: 76 Social History Social History Social History: Caffeine- coffee Smoking packs per day: 1 Smoking cigarettes per day: 20.0 Years smoked: 40 Smoking pack-years: 40.00 Smoking status: Former smoker Tobacco type: cigarettes Second hand tobacco smoke exposure: No Additional smoking assessment comments: pt states haven't smoked in over 50 years Alcohol intake: current Drinks per week: 14 Substance use: never Substance use type: does not use Do You Feel Safe in your Home?: Yes Lack of Transportation: No Lack of Food: Never True Current Housing: I Have Housing Concerned About Future Housing: No Difficulty Paying Gas/Electric Bills: No Difficulty Paying for Meds: No Currently Unemployed: No Education: Associate Degree Difficulty w/ Childcare or Family Care: No Gender identity (if verbalized by the patient): Male Spiritual care concerns: No Anes - Eval Final PreProcedure Day of Procedure 04/20/25 10:22 Patient weight: normal Heart: regular rate and rhythm Lungs: decreased breath sounds Airway: special considerations poor opening and other (pt in c collar) Neurological: other (alert) Last oral intake: >/= 8 hours ASA classification: IV Emergent: no Anesthetic plan: proceed Anesthesia type and monitoring: general GIVS and standard monitoring Results Review: All pre-operative results and documents have been reviewed as part of the pre-operative evaluation. Informed Consent: The patient's anesthetic plan and its attendant risks and benefits were discussed with the patient/family/POA. Questions were solicited and answers provided to the satisfaction of the patient/family/POA.
--- NOTE | 2025-04-20 10:48 | PCNFU ---
Nutrition Follow-Up Complete: Inadequate energy intake related to pt not alert and oriented as evidenced by nursing report Goal:Meet estimated needs via PO or alternative nutrition support if needed Pt meeting goal via nutrition support Pt current nutrition is NPO, Tube feeding: Glucerna 1.2 @ 60ml/hr = 1584kcals, 79g protein, 1062ml free water. Nutrition recommendation: continue with current plan of care Last recorded weight is 56.5 kg. Bowel Motility:+ BM 04/20 Labs Reviewed: Hgb:9.4, HCT:29, Alb:3.1, GFR:21, BUN:54, Cr:2.9, Glu:135 Meds Noted: protonix, zofran Skin: WNL Additional Notes: Pt continues NPO, tube feedings were running and pt was tolerating well. Pt currently down getting PEG tube today. Tube feedings to restart post procedure. Recommend to restart per previous orders. May need to consider switching to bolus feeds prior to discharge: Bolus conversion would be 260ml bolus feed 5x/day to provide 1560kcals over 24hrs. Monitor diet orders, alertness, wt, labs. follow up every Sunday and Sunday
--- NOTE | 2025-04-20 13:03 | PCOTNOTE ---
Pt with bedrest orders this morning and awaiting call back from MD to be able to see pt but then pt was taken for G-tube placement midday. Will continue to follow.
[2025-04-20] MEDS: diazePAM INJ (*CRX) 10 MG/2 ML SYRINGE 5 MG IV PUSH (14:36)
[2025-04-20] MEDS: AMOXICILLIN/CLAVULANATE K SUSP 500 MG/6.25 ML UD FEED TUBE (20:35)
[2025-04-20] MEDS: levETIRAcetam ORAL SOL 500 MG/5 ML UDC 750 MG FEED TUBE (20:35)
--- NOTE | 2025-04-20 22:42 | PCRCNOTE ---
Addendum entered by Zen Nobles, [employer]PER[employer] 04/21/25 02:10: 0145: patient check; cannula found on forehead, patient awake Original Note: Upon entry to room, patient asleep, José Miguel-Dick breathing observed; started on [place] screening, room air
[2025-04-21] VITALS (18 sets, daily range): BP systolic 135–1423; BP diastolic 60–86; PULSE 58–87; RESP 12–20; TEMP 36.4–37.2; O2SAT 98–99
[2025-04-21 06:06] LABS: Hematocrit 27.9 % (42.0-52.0); Hemoglobin 9.1 g/dL (14.0-18.0); Immature Granulocyte Percent A 0.8 % (0-0.5); Lymphocytes Absolute Auto 1.31 K/mm3 (0.9-3.2); Mean Corpuscular HGB Conc 32.6 g/dl (32-36); Mean Corpuscular Hemoglobin 32.4 pg (26-34); Mean Corpuscular Volume 99.3 fl (80-100); Nucleated Red Blood Cells Absolute Auto 0.000 K/mm3 (0.0-0.012); Nucleated Red Blood Cells Perc 0.0 % (0.0-0.2); Platelet Count Result 203 k/mm3 (150-375); Red Blood Count 2.81 M/mm3 (4.6-6.20); White Blood Count 10.7 K/mm3 (4.5-10.0)
[2025-04-21 06:26] LABS: Alanine Aminotransferase 28 U/L (6-50); Albumin Level 3.0 g/dL (3.5-5.1); Alkaline Phosphatase 134 U/L (38-126); Anion Gap 6 mmol/L (4-12); Aspartate Amino Transferase 45 U/L (17-59); Bilirubin,Total 0.4 mg/dL (0.2-1.3); Blood Urea Nitrogen 59 mg/dL (9-20); Calcium 9.0 mg/dL (8.4-10.2); Carbon Dioxide 23 mmol/L (22-30); Chloride 114 mmol/L (98-107); Estimated CRCL calculation 14 ml/min; Estimated Glomerular Filt Rate 20; Glucose 158 mg/dL (65-110); Potassium 3.9 mmol/L (3.4-5.0); Sodium 143 mmol/L (137-145); Total Protein 6.3 g/dL (6.3-8.2)
[2025-04-21] MEDS: levETIRAcetam ORAL SOL 500 MG/5 ML UDC 750 MG FEED TUBE ×2 (08:11→21:07)
[2025-04-21] MEDS: LABETALOL HCL 100 MG TABLET FEED TUBE ×2 (08:11→21:08)
[2025-04-21] MEDS: PANTOPRAZOLE SODIUM IV 40 MG VIAL IV PUSH (08:11)
[2025-04-21] MEDS: SIMVASTATIN 20 MG TABLET 40 MG BY MOUTH (08:12)
[2025-04-21] MEDS: AMOXICILLIN/CLAVULANATE K SUSP 500 MG/6.25 ML UD FEED TUBE ×2 (08:36→21:08)
--- NOTE | 2025-04-21 11:43 | PCNFU ---
Nutrition Follow-Up Complete: Inadequate energy intake related to pt not alert and oriented as evidenced by nursing report Goal:Meet estimated needs via PO or alternative nutrition support if needed Pt meeting goal via nutrition support Pt current nutrition is NPO, Tube feeding: Glucerna 1.2 @ 60ml/hr = 1584kcals, 79g protein, 1062ml free water. Nutrition recommendation: continue with current plan of care Last recorded weight is 59.3 kg Bowel Motility:+ BM 04/21 Labs Reviewed: Hgb:9.1, HCT:27.9, Alb:3.0, GFR:20, BUN:59, Cr:3.02, Glu:158 Meds Noted: protonix, zofran Skin: WNL Additional Notes: Pt continues NPO, working with speech, PEG tube placed yesterday and tube feedings restarted. Glucerna 1.2 running @ 60ml/hr GOAL rate = 1584kcals, 79g protein, 1062ml free water over 24hrs. Pt tolerating well. May need to consider switching to bolus feeds prior to discharge: Bolus conversion would be 260ml bolus feed 5x/day to provide 1560kcals over 24hrs. Monitor tube feeding, wt, labs. follow up every Sunday and Sunday
--- NOTE | 2025-04-21 16:27 | PM.IMPN ---
Progress Note: A&P Assessment and Plan (1) Seizure: Code(s): R56.9 - Unspecified convulsions Status: Acute Assessment and Plan: Patient presented with AMS and shaking episode in the bed. EMS was called. Patient was in a postictal state after the event Head CT with no acute intracranial findings. CTA neck showed type 2 odontoid fracture. No acute cervical arterial abnormality. Mild esophageal wall thickening. Lung apices with mild bronchiolitis. Daily chronic alcohol drinker. UDS was all negative. Alcohol level <10 Probable seizure disorder - related to alcohol w/d?. Neurology consulted. He was started on Keppra and placed on seizure precautions. 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 Increased Keppra to 750 mg Q12h. EEG showing normal record. Metabolic acidosis on admission related to seizure. Improved with IV fluids with bicarb. Bicrab normal so changed to maintenance fluids. IV fluids stopped since tolerating TF. Continue seizure precautions. Continue Keppra. Placement being arranged for patient to go to [facility] (2) Dysphagia: Code(s): R13.10 - Dysphagia, unspecified Status: Acute Assessment and Plan: Speech therapy felt patient could tolerate ice chips but otherwise should remain NPO Plan was for hospice but now more awake and alert Bedside swallow evaluation was poor so MBS performed 04/17 showing patient should remain NPO. Spoke with patient and family at bedside (with his permission) and he was agreeable for PEG placement. He understands that he may never be able to swallow safely again NGT placed for enteral nutrition and GI consulted. Patient underwent PEG placement 04/20. TF resumed. Continue ST. (3) AMS (altered mental status): Qualifiers: Altered mental status type: unspecified Qualified Code(s): R41.82 - Altered mental status, unspecified Code(s): R41.82 - Altered mental status, unspecified Status: Acute Assessment and Plan: AMS felt related to seizure. AMS resolving Continue to monitor. (4) Type II fracture of odontoid process: Code(s): S12.110A - Anterior displaced Type II dens fracture, initial encounter for closed fracture Status: Acute Assessment and Plan: Patient presented with seizure-like activity CTA neck showed type 2 odontoid fracture. Patient was placed in [place] collar. Neurosurgery was consulted and appreciate their input No plans for surgical repair. PT/OT ordered with instructions from neurosurgery (5) Essential (primary) hypertension: Code(s): I10 - Essential (primary) hypertension Status: Chronic Assessment and Plan: BP elevated here and this has been long standing. Only on labetalol at home. Started on IV labetalol and IV hydralazine to control BP No acute CVA noted by imaging. NGT placed and anti-HTN meds changed to NG route BP better controlled. Monitor for today. (6) Atrial fibrillation: Code(s): I48.91 - Unspecified atrial fibrillation Status: Acute Assessment and Plan: Atrial fibrillation with mild RVR. Labetalol scheduled. With AFib he was switched to heparin drip [id number] 6. TSH normal He is in/out AFib Follow on tele. Heparin drip stopped for PEG placement. Discussed with GI. Acuña to add Eliquis tomorrow (7) Diabetes mellitus: Qualifiers: Chronic kidney disease stage: stage 4 (severe) Diabetes mellitus complication detail: with chronic kidney disease Diabetes mellitus complication status: with kidney complications Diabetes mellitus [facility] insulin use: without [facility] use Diabetes mellitus type: type 2 Qualified Code(s): E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; N18.4 - Chronic kidney disease, stage 4 (severe) Code(s): E11.9 - Type 2 diabetes mellitus without complications Status: Chronic Assessment and Plan: A1c 6.1% in Feb. The patient's blood glucose was reviewed on 04/21 Glucose reasonably well controlled Continue AccuCheks covering with sliding scale. Hypoglycemia protocol available as needed. Continue to monitor (8) CKD (chronic kidney disease) stage 3, GFR 30-59 ml/min: Qualifiers: Chronic kidney disease stage 3 subtype: unspecified whether 3a or 3b Qualified Code(s): N18.30 - Chronic kidney disease, stage 3 unspecified Code(s): N18.30 - Chronic kidney disease, stage 3 unspecified Status: Acute Assessment and Plan: Patient with CKD stage 4. Baseline creatinine 2.5-3.5. Cr improved to 2.5 but was on fluids. Cr now trending up to 3.02 today Probably still within his baseline. Good UOP before Solorzano removed. Monitor UOP since Solorzano is out. Plan Chronic alcohol use - UDS was negative. Alcohol level <10. CIWA <3. CIWA protocol stopped Mild bronchiolitis - Noted by CTA of neck. CXR showing small interstitial and airspace opacities scattered t/o both lungs. Consider aspiration vs CAP vs edema. BNP 25K. Influenza, RSV and COVID swab negative. Transitioned Zosyn to Augmentin per GTube to complete a course. He remains on room air. Apnea link incomplete. Echo cancelled again. Re-order Echo. DVT prophylaxis SCDs Code status do not resuscitate Subjective Date/time seen: 04/21/25 16:27 Interval history: 84-year-old male with HTN, hyperlipidemia, CKD was brought in with altered mental status/seizure disorder. No problems overnight. Denies neck pain. No CP or SOB. Solorzano out and hasnt voided yet Exam Narrative: AF 98.0 164/66 72 12 99% ra Gen - NARD HEENT - NGT secured. Neck - neck brace in place Chest - clear anteriorly and in the flanks, nml RR CV - irregularly irregular. Tele showing AFib with controlled rate Abd - soft. NT/ND. +BS. Ext - no pedal edema Neuro - alert and appropriate Skin - Warm, dry. Objective Data Vital Signs Vital Signs: Vital Signs - 24 hr 04/20/25 18:00 04/20/25 20:00 04/20/25 20:00 Temperature 99.3 F Pulse Rate 80 80 Respiratory Rate 14 Blood Pressure 169/63 H Pulse Oximetry 99 Oxygen Delivery Room Air Oxygen Flow Rate Fraction of Inspired Oxygen 04/20/25 20:00 04/20/25 20:36 04/20/25 22:00 Temperature Pulse Rate 81 84 68 Respiratory Rate Blood Pressure Pulse Oximetry Oxygen Delivery Oxygen Flow Rate Fraction of Inspired Oxygen 04/20/25 22:15 04/20/25 22:25 04/20/25 23:59 Temperature 99.2 F Pulse Rate 69 71 72 Respiratory Rate 16 14 Blood Pressure 143/60 H 147/59 H Pulse Oximetry 97 97 Oxygen Delivery Nasal Cannula Oxygen Flow Rate 0 Fraction of Inspired Oxygen 21 04/21/25 00:00 04/21/25 00:00 04/21/25 02:00 Temperature Pulse Rate 80 73 Respiratory Rate Blood Pressure Pulse Oximetry Oxygen Delivery Room Air Oxygen Flow Rate Fraction of Inspired Oxygen 04/21/25 04:00 04/21/25 04:00 04/21/25 04:00 Temperature 98.2 F Pulse Rate 72 79 Respiratory Rate 18 Blood Pressure 170/70 H Pulse Oximetry 98 Oxygen Delivery Room Air Oxygen Flow Rate Fraction of Inspired Oxygen 04/21/25 06:00 04/21/25 06:26 04/21/25 08:00 Temperature Pulse Rate 78 75 Respiratory Rate Blood Pressure 195/71 H Pulse Oximetry Oxygen Delivery Room Air Oxygen Flow Rate Fraction of Inspired Oxygen 04/21/25 08:00 04/21/25 08:00 04/21/25 08:11 Temperature 97.6 F Pulse Rate 87 58 L 75 Respiratory Rate 20 Blood Pressure 1423/62 H Pulse Oximetry 98 Oxygen Delivery Oxygen Flow Rate Fraction of Inspired Oxygen 04/21/25 10:00 04/21/25 10:37 04/21/25 10:52 Temperature Pulse Rate 74 Respiratory Rate Blood Pressure Pulse Oximetry Oxygen Delivery Room Air Room Air Oxygen Flow Rate Fraction of Inspired Oxygen 04/21/25 11:28 04/21/25 12:00 04/21/25 12:00 Temperature 99.0 F Pulse Rate 87 68 Respiratory Rate 16 Blood Pressure 135/86 Pulse Oximetry 99 Oxygen Delivery Room Air Oxygen Flow Rate Fraction of Inspired Oxygen 04/21/25 15:52 Temperature 98.0 F Pulse Rate 72 Respiratory Rate 12 Blood Pressure 164/66 H Pulse Oximetry 99 Oxygen Delivery Oxygen Flow Rate Fraction of Inspired Oxygen Intake/Output Intake/Output: Intake & Output 04/18/25 04/19/25 04/20/25 04/21/25 23:59 23:59 23:59 23:59 Intake Total 4079.6 1093.4 1442.9 768 Output Total 8696 094 7600 675 Balance 2479.6 343.4 217.9 93 Meds/Results Medications: Active Medications Generic Name Dose Route Start Last Admin Trade Name Freq PRN Reason Stop Dose Admin Acetaminophen 650 mg 04/21/25 09:10 Acetaminophen Elixir 325 Mg/10.15 Ml Udc FEED TUBE Q4H PRN Mild Pain (1-3) or Fever Amlodipine Besylate 5 mg 04/18/25 01:15 04/21/25 08:12 Amlodipine Besylate 5 Mg Tablet FEED TUBE 5 mg DAILY OLENA Administration Amoxicillin/Clavulanate Potassium 500 mg 04/20/25 21:00 04/21/25 08:36 Amoxicillin/Clavulanate K Susp 500 Mg/6.25 Ml Ud FEED TUBE 04/22/25 21:01 500 mg Q12HR OLENA Administration Diazepam 5 mg 04/12/25 20:46 04/20/25 14:36 Diazepam Inj (*Crx) 10 Mg/2 Ml Syringe IV PUSH 5 mg Q2H PRN Administration seizure Hydralazine HCl 10 mg 04/18/25 01:16 04/20/25 08:03 Hydralazine Hcl 20 Mg/Ml Vial IV PUSH 10 mg Q4HR PRN Administration SBP >180mmHg. Hydralazine HCl 25 mg 04/20/25 22:00 04/21/25 15:57 Hydralazine Hcl 25 Mg Tablet FEED TUBE 25 mg Q8H OLENA Administration Labetalol HCl 100 mg 04/18/25 01:15 04/21/25 08:11 Labetalol Hcl 100 Mg Tablet FEED TUBE 100 mg Q12HR OLENA Administration Levetiracetam 750 mg 04/20/25 21:00 04/21/25 08:11 Levetiracetam Oral Pallavi 500 Mg/5 Ml Udc FEED TUBE 750 mg Q12HR OLENA Administration Ondansetron HCl 4 mg 04/12/25 06:32 Ondansetron Inj 4 Mg/2 Ml Vial IV PUSH Q4H PRN Nausea Pantoprazole Sodium 40 mg 04/13/25 09:10 04/21/25 08:11 Pantoprazole Sodium Iv 40 Mg Vial IV PUSH 40 mg QAM OLENA Administration Simvastatin 40 mg 04/12/25 12:45 04/21/25 08:12 Simvastatin 20 Mg Tablet BY MOUTH 40 mg DAILY OLENA Administration Radiology Results: ITS Impressions Head CT 04/12/25 06:53 IMPRESSION: 1. No acute intracranial findings. Head/Neck CTA 04/12/25 07:10 IMPRESSION: CTA NECK: 1. Type II odontoid fracture. 2. No acute cervical arterial abnormality. 3. Mild esophageal wall thickening. 4. Lung apices with mild bronchiolitis. CTA HEAD: 1. No acute findings. Chest X-Ray 04/13/25 11:52 IMPRESSION: 1: Small interstitial and airspace opacities scattered throughout both lungs, more prominent on the left. Differential includes but is not limited to edema or pneumonia. Recommend follow-up to resolution. Brain MRI 04/13/25 13:21 IMPRESSION: 1. 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 2. Moderate nonspecific cerebral white matter disease, which likely represents chronic small vessel ischemic disease. 3. Type II odontoid fracture. Elbow X-Ray 04/15/25 15:04 Impression: No acute fracture or malalignment. Modified Barium Swallow 04/17/25 14:10 IMPRESSION: Pharyngeal dysphagia with laryngeal penetration with aspiration. Please correlate with speech pathologist findings and specific feeding recommendations. Abdomen X-Ray 04/17/25 20:13 IMPRESSION: Enteric tube terminates in the stomach but the sidehole is at the GE junction and advancement is recommended Labs Labs: Laboratory Results - last 24 hr 04/20/25 04/20/25 04/21/25 17:59 23:47 05:47 WBC RBC Hgb Hct MCV MCH MCHC RDW Plt Count MPV Immature Gran % (Auto) Neut % (Auto) Lymph % (Auto) [place] % (Auto) Eos % (Auto) Baso % (Auto) Lymph # (Auto) [place] # (Auto) Eos # (Auto) Baso # (Auto) Abs Immat Gran (auto) Absolute Neuts (auto) Absolute Nucleated RBC Nucleated RBC % Sodium Potassium Chloride Carbon Dioxide Anion Gap BUN Creatinine Estim Creat Clear Calc Estimated GFR Glucose POC Capillary Glucose 133 H 149 H 154 H Calcium Total Bilirubin AST ALT Alkaline Phosphatase Total Protein Albumin 04/21/25 04/21/25 05:57 10:59 WBC 10.7 H RBC 2.81 L Hgb 9.1 L Hct 27.9 L MCV 99.3 MCH 32.4 MCHC 32.6 RDW 14.6 H Plt Count 203 MPV 10.4 Immature Gran % (Auto) 0.8 H Neut % (Auto) 72.4 Lymph % (Auto) 12.2 L [place] % (Auto) 8.3 Eos % (Auto) 5.6 H Baso % (Auto) 0.7 Lymph # (Auto) 1.31 [place] # (Auto) 0.9 H Eos # (Auto) 0.6 H Baso # (Auto) 0.1 Abs Immat Gran (auto) 0.09 H Absolute Neuts (auto) 7.8 H Absolute Nucleated RBC 0.000 Nucleated RBC % 0.0 Sodium 143 Potassium 3.9 Chloride 114 H Carbon Dioxide 23 Anion Gap 6 BUN 59 H Creatinine 3.02 H Estim Creat Clear Calc 14 Estimated GFR 20 L Glucose 158 H POC Capillary Glucose 161 H Calcium 9.0 Total Bilirubin 0.4 AST 45 ALT 28 Alkaline Phosphatase 134 H Total Protein 6.3 Albumin 3.0 L
--- NOTE | 2025-04-21 16:42 | PC.NURSE ---
Notified Dr Dumont that the patient has not voided since urinary catheter removal at 0900. Bladder scan showed approximately 250ml. Will continue to monitor and encouraging patient to void.
[2025-04-22] VITALS (12 sets, daily range): BP systolic 149–186; BP diastolic 66–78; PULSE 66–89; RESP 16–18; TEMP 36.4–37.2; O2SAT 97–100
--- NOTE | 2025-04-22 | ECHO_ITS ---
Patient Info Name: Shantanu Burleson Age: 84 years : 1940 Gender: Male Ht: 64 in Wt: 130 lbs BSA: 1.64 m2 HR: 67 bpm BP: 153 / 70 mmHg Technical Quality: Good Exam Date: 04/22/2025 11:29 AM Patient Status: I Admit Date: 04/12/2025 Exam Type: CA echo dop color flow w con Complete two-dimensional, color flow and Doppler transthoracic echocardiogram is performed with contrast to opacify the left ventricle and to improve the deliniation of the left ventricle endocardial borders. Staff Referring Physician: Brandt Dumont MD Ui Software Engineer: Pratik Morel III Attending Provider: Lindy Ramos Contrast/Agitated Saline Contrast/Ag. Saline: Definity Amount: 2.00 ml Administered By: Pratik Morel III Existing IV Access: Yes IV Access Condition: patent with no signs of infiltration Summary 1. Definity contrast administered improved wall motion interpretation. 2. Left ventricular chamber dimension is normal. 3. Left ventricular systolic function is normal, estimated at 60-65. 4. The left ventricular diastolic function is abnormal. 5. E/e' 13 is mildly elevated. 6. Left atrial chamber dimension is moderately enlarged. 7. Right atrial chamber dimension is mildly enlarged. 8. There is moderate aortic valve sclerosis. 9. The mitral valve has a moderately calcified annulus. 10. There is trace tricuspid valve regurgitation. Left Ventricle Left ventricular chamber dimension is normal. Left ventricular systolic function is normal, estimated at 60-65. The left ventricular diastolic function is abnormal. Definity contrast administered improved wall motion interpretation. E/e' 13 is mildly elevated. Right Ventricle Right ventricular chamber dimension is normal. Right ventricular systolic function is normal and with normal TAPSE 2.4 cm. Left Atria Left atrial chamber dimension is moderately enlarged. Right Atria Right atrial chamber dimension is mildly enlarged. Aortic Valve The aortic valve is trileaflet. There is moderate aortic valve sclerosis. There is no aortic valve stenosis. There is no aortic valve regurgitation. Pulmonic Valve There is no pulmonic regurgitation. Mitral Valve The mitral valve has a moderately calcified annulus. There is no mitral valve stenosis. There is no mitral valve regurgitation. Tricuspid Valve There is trace tricuspid valve regurgitation. RVSP is not measured due to an inadequate TR jet. Pericardium/Pleural There is no pericardial effusion. Inferior Vena Cava Normal inferior vena cava with >50% collapse upon inspiration consistent with normal right atrial pressure, 5 mmHg. Aorta The aortic root size at the sinus of Valsalva is normal. Left Ventricular Outflow Tract Name Value Normal LVOT 2D LVOT Diameter 2.2 cm LVOT Doppler LVOT Peak Velocity 98 cm/s LVOT Peak Gradient 4 mmHg LVOT Mean Gradient 2 mmHg LVOT VTI 26 cm LVOT VTI/AV VTI Ratio 0.8 LVOT Stroke Volume 100 ml LVOT CO 5.3 l/min LVOT CI 3.3 l/min/m2 Pulmonic Valve Name Value Normal PV Doppler PV Peak Velocity 91 cm/s PV Peak Gradient 3 mmHg PV Mean Gradient 2 mmHg Mitral Valve Name Value Normal MV Doppler MV Peak Gradient 3 mmHg MV Mean Gradient 1 mmHg MV Area (Cont Eq VTI) 3.1 cm2 MV Diastolic Function MV E Peak Velocity 110 cm/s MV A Peak Velocity 89 cm/s MV E/A 1.2 MV Decel Time (PW) 347 ms MV Annular TDI MV E/e' (Septal) 18.4 MV E/e' (Lateral) 11.2 MV E/e' (Average) 14.8 Tricuspid Valve Name Value Normal Estimated PAP/RSVP RA Pressure 5 mmHg <=5 TV Annular TDI TV Lateral Neeru s' Velocity 17.5 cm/s >=9.5 Aortic Valve Name Value Normal AV Doppler AV Peak Velocity 152 cm/s AV Peak Gradient 9 mmHg AV Mean Gradient 4 mmHg AV VTI 32 cm AV Area (Cont Eq VTI) 3.1 cm2 >=3.0 AV Area (Cont Eq Ken) 2.5 cm2 AV DI (Ken) 0.65 AV Regurgitation 2D LVOT Area 3.8 cm2 Ventricles Name Value Normal LV Dimensions 2D/MM IVS Diastolic Thickness (2D) 0.9 cm 0.6-1.0 LVID Diastole (2D) 4.3 cm 4.2-5.8 LVIW Diastolic Thickness (2D) 1.0 cm 0.6-1.0 LVID Systole (2D) 3.0 cm 2.5-4.0 LVOT Diameter 2.2 cm LV Mass (2D Cubed) 130.32 g 88.00-224.00 LV Mass Index (2D Cubed) 80 g/m2 49-115 Relative Wall Thickness (2D) 0.44 <=0.42 LV Fractional Shortening/Ejection Fraction 2D/MM LV Fractional Shortening (2D) 31 % 25-43 LV EF (2D Teichholz) 59 % LV Diastolic Volume (4C MOD) 125 ml LV EF (4C MOD) 67 % LV Diastolic Volume (2C MOD) 80 ml LV EF (2C MOD) 67 % LV Diastolic Volume (BP MOD) 100 ml 62-150 LV Diastolic Volume Index (BP MOD) 61 ml/m2 34-74 LV Systolic Volume (BP MOD) 33 ml 21-61 LV Systolic Volume Index (BP MOD) 20 ml/m2 11-31 LV EF (BP MOD) 67 % 52-72 LV Diastolic Length (4C) 8.4 cm LV Systolic Length (4C) 6.4 cm LV Stroke Volume (4C MOD) 84 ml Atria Name Value Normal LA Dimensions LA Volume (4C A-L) 87 ml LA Volume (BP A-L) 72 ml RA Dimensions RA Systolic Major Busy Length (4C) 5.9 cm 2.1-2.7 RA Area (4C) 21.1 cm2 <=18.0 Report Signatures
[2025-04-22 04:14] LABS: Hematocrit 24.7 % (42.0-52.0); Hemoglobin 8.1 g/dL (14.0-18.0); Immature Granulocyte Percent A 0.8 % (0-0.5); Lymphocytes Absolute Auto 1.35 K/mm3 (0.9-3.2); Mean Corpuscular HGB Conc 32.8 g/dl (32-36); Mean Corpuscular Hemoglobin 32.3 pg (26-34); Mean Corpuscular Volume 98.4 fl (80-100); Nucleated Red Blood Cells Absolute Auto 0.000 K/mm3 (0.0-0.012); Nucleated Red Blood Cells Perc 0.0 % (0.0-0.2); Platelet Count Result 198 k/mm3 (150-375); Red Blood Count 2.51 M/mm3 (4.6-6.20); White Blood Count 10.9 K/mm3 (4.5-10.0)
[2025-04-22 04:30] LABS: Anion Gap 7 mmol/L (4-12); Blood Urea Nitrogen 64 mg/dL (9-20); Calcium 8.9 mg/dL (8.4-10.2); Carbon Dioxide 23 mmol/L (22-30); Chloride 113 mmol/L (98-107); Estimated CRCL calculation 14 ml/min; Estimated Glomerular Filt Rate 20; Glucose 166 mg/dL (65-110); Potassium 3.9 mmol/L (3.4-5.0); Sodium 143 mmol/L (137-145)
--- NOTE | 2025-04-22 05:51 | PC.NURSE ---
SBAR tubed and verbal report given to patricia KUO. Patient transferred to room 322 bed 2 with all posessions. No change from previous assessment.
--- NOTE | 2025-04-22 08:40 | P.PNIM_ITS ---
Progress Note: A&P Assessment and Plan (1) Seizure: Code(s): R56.9 - Unspecified convulsions Status: Acute Assessment and Plan: -Patient presented with AMS and shaking episode in the bed. EMS was called. Patient was in a postictal state after the event -Head CT with no acute intracranial findings. -CTA neck showed type 2 odontoid fracture. No acute cervical arterial abnormality. Mild esophageal wall thickening. Lung apices with mild bronchiolitis. -Daily chronic alcohol drinker. UDS was all negative. Alcohol level <10 -Probable seizure disorder - related to alcohol w/d?. 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 - neurology consulted, increased Keppra to 750mg BID. -Increased Keppra to 750 mg Q12h. EEG showing normal record. -Continue seizure precautions. Continue Keppra. -Placement being arranged for patient to go to [facility], awaiting insurance approval (2) Dysphagia: Code(s): R13.10 - Dysphagia, unspecified Status: Acute Assessment and Plan: -Speech therapy felt patient could tolerate ice chips but otherwise should remain NPO -Plan was for hospice but now more awake and alert -Bedside swallow evaluation was poor so MBS performed 04/17 showing patient should remain NPO. -Spoke with patient and family at bedside (with his permission) and he was agreeable for PEG placement. He understands that he may never be able to swallow safely again -NGT placed for enteral nutrition and GI consulted. Patient underwent PEG placement 04/20. TF resumed. Continue ST. (3) AMS (altered mental status): Qualifiers: Altered mental status type: unspecified Qualified Code(s): R41.82 - Altered mental status, unspecified Code(s): R41.82 - Altered mental status, unspecified Status: Acute Assessment and Plan: -AMS felt related to seizure. Patient is alert and oriented x4. -Continue to monitor. (4) Type II fracture of odontoid process: Code(s): S12.110A - Anterior displaced Type II dens fracture, initial encounter for closed fracture Status: Acute Assessment and Plan: -Patient presented with seizure-like activity -CTA neck showed type 2 odontoid fracture. -Patient was placed in [place] collar. - NSG consulted - no acute surgical intervention planned, maintain C-collar at all time, avoid pushing/pulling or lifiting greater than 10 lbs. Follow-up in 6 weeks. -continue PT/OT (5) Essential (primary) hypertension: Code(s): I10 - Essential (primary) hypertension Status: Chronic Assessment and Plan: -BP elevated here and this has been long standing. Only on labetalol at home. - continue labetalol, hydralazine. monitor BP trend. (6) Atrial fibrillation: Code(s): I48.91 - Unspecified atrial fibrillation Status: Acute Assessment and Plan: -Atrial fibrillation with mild RVR. Labetalol scheduled. -With AFib he was switched to heparin drip -[id number]. TSH normal -He is in/out AFib -Follow on tele. Heparin drip stopped for PEG placement. -Discussed with GI. Acuña to start Eliquis. (7) Diabetes mellitus: Qualifiers: Chronic kidney disease stage: stage 4 (severe) Diabetes mellitus complication detail: with chronic kidney disease Diabetes mellitus complication status: with kidney complications Diabetes mellitus ferryboat operator helper insulin use: without ferryboat operator helper use Diabetes mellitus type: type 2 Qualified Code(s): E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; N18.4 - Chronic kidney disease, stage 4 (severe) Code(s): E11.9 - Type 2 diabetes mellitus without complications Status: Chronic Assessment and Plan: -A1c 6.1% in Feb. The patient's blood glucose was reviewed on 04/21 -Glucose reasonably well-controlled -Continue AccuCheks covering with sliding scale. Hypoglycemia protocol available as needed. -Continue to monitor (8) CKD (chronic kidney disease) stage 3, GFR 30-59 ml/min: Qualifiers: Chronic kidney disease stage 3 subtype: unspecified whether 3a or 3b Qualified Code(s): N18.30 - Chronic kidney disease, stage 3 unspecified Code(s): N18.30 - Chronic kidney disease, stage 3 unspecified Status: Acute Assessment and Plan: -Patient with CKD stage 4. Baseline creatinine 2.5-3.5. -Cr improved to 2.5 but was on fluids. Cr now trending up to 3.02 today -Probably still within his baseline. Good UOP before Hamilton removed. -Monitor UOP since Hamilton is out. (9) Pneumonia: Code(s): J18.9 - Pneumonia, unspecified organism Status: Acute Assessment and Plan: -CXR showing small interstitial and airspace opacities scattered t/o both lungs. Consider aspiration vs CAP vs edema. BNP 25K. Influenza, RSV and COVID swab negative. Transitioned Zosyn to Augmentin per GTube to complete a course. He remains on room air. Apnea link incomplete. Plan DVT prophylaxis: Eliquis Code status: DNR Dispo: VITA 1-2 days Subjective Date/time seen: 04/22/25 08:40 Interval history: Patient seen and examined at bedside. Alert and oriented x4. Doing well with tube feeds. Complaining of increased LUE swelling. Denied chest pain, SOB. Review of Systems Review of Systems: All systems reviewed & are unremarkable except as noted in HPI and below Exam Narrative: General: NAD Eyes: EOMI ENT: neck supple Cardiovascular: Regular rate and rhythm Respiratory: Clear to auscultation, respirations even and unlabored on RA Gastrointestinal: Soft, non tender. PEG tube in place with no significant surrounding erythema or drainage. Genitourinary: no suprapubic tenderness Musculoskeletal: No edema Skin: warm, dry Neuro: Alert. Psych: Mood appropriate Objective Data Vital Signs Vital Signs: Vital Signs - 24 hr 04/21/25 10:00 04/21/25 10:37 04/21/25 10:52 Temperature Pulse Rate 74 Respiratory Rate Blood Pressure Pulse Oximetry Oxygen Delivery Room Air Room Air 04/21/25 11:28 04/21/25 12:00 04/21/25 12:00 Temperature 99.0 F Pulse Rate 87 68 Respiratory Rate 16 Blood Pressure 135/86 Pulse Oximetry 99 Oxygen Delivery Room Air 04/21/25 14:00 04/21/25 15:52 04/21/25 16:00 Temperature 98.0 F Pulse Rate 80 72 Respiratory Rate 12 Blood Pressure 164/66 H Pulse Oximetry 99 Oxygen Delivery Room Air 04/21/25 16:00 04/21/25 18:00 04/21/25 19:38 Temperature Pulse Rate 82 79 Respiratory Rate Blood Pressure Pulse Oximetry Oxygen Delivery Room Air 04/21/25 20:00 04/21/25 20:00 04/21/25 21:08 Temperature 97.7 F Pulse Rate 75 76 76 Respiratory Rate 14 Blood Pressure 175/63 H Pulse Oximetry 99 Oxygen Delivery 04/21/25 22:00 04/21/25 23:43 04/22/25 00:00 Temperature 98.0 F Pulse Rate 64 67 71 Respiratory Rate 14 Blood Pressure 172/60 H Pulse Oximetry 98 Oxygen Delivery 04/22/25 02:00 04/22/25 04:00 04/22/25 04:00 Temperature 98.9 F Pulse Rate 75 74 89 Respiratory Rate 16 Blood Pressure 168/74 H Pulse Oximetry 98 Oxygen Delivery 04/22/25 05:50 04/22/25 06:25 Temperature 97.5 F L Pulse Rate 67 67 Respiratory Rate 16 Blood Pressure 153/70 H Pulse Oximetry 99 Oxygen Delivery Intake/Output Intake/Output: Intake & Output 04/19/25 04/20/25 04/21/25 04/22/25 23:59 23:59 23:59 23:59 Intake Total 1093.4 1442.9 1228 1262 Output Total 750 1225 875 2 Balance 343.4 217.9 353 1260 Meds/Results Medications: Active Medications Generic Name Dose Route Start Last Admin Trade Name Freq PRN Reason Stop Dose Admin Acetaminophen 650 mg 04/21/25 09:10 Acetaminophen Elixir 325 Mg/10.15 Ml Udc FEED TUBE Q4H PRN Mild Pain (1-3) or Fever Amlodipine Besylate 5 mg 04/18/25 01:15 04/21/25 08:12 Amlodipine Besylate 5 Mg Tablet FEED TUBE 5 mg DAILY OLENA Administration Amoxicillin/Clavulanate Potassium 500 mg 04/20/25 21:00 04/21/25 21:08 Amoxicillin/Clavulanate K Susp 500 Mg/6.25 Ml Ud FEED TUBE 04/22/25 21:01 500 mg Q12HR OLENA Administration Apixaban 2.5 mg 04/22/25 09:00 Apixaban 2.5 Mg Tablet PO Q12HR OLENA Diazepam 5 mg 04/12/25 20:46 04/20/25 14:36 Diazepam Inj (*Crx) 10 Mg/2 Ml Syringe IV PUSH 5 mg Q2H PRN Administration seizure Hydralazine HCl 10 mg 04/18/25 01:16 04/20/25 08:03 Hydralazine Hcl 20 Mg/Ml Vial IV PUSH 10 mg Q4HR PRN Administration SBP >180mmHg. Hydralazine HCl 25 mg 04/20/25 22:00 04/22/25 05:35 Hydralazine Hcl 25 Mg Tablet FEED TUBE 25 mg Q8H OLENA Administration Labetalol HCl 100 mg 04/18/25 01:15 04/21/25 21:08 Labetalol Hcl 100 Mg Tablet FEED TUBE 100 mg Q12HR OLENA Administration Levetiracetam 750 mg 04/20/25 21:00 04/21/25 21:07 Levetiracetam Oral Pallavi 500 Mg/5 Ml Udc FEED TUBE 750 mg Q12HR OLENA Administration Miscellaneous Information 1 each 04/22/25 00:01 Diazepam Needs To Be Renewed Or It Will Automatically Discontinue. XX 05/22/25 00:00 CLARIFY OLENA Ondansetron HCl 4 mg 04/12/25 06:32 Ondansetron Inj 4 Mg/2 Ml Vial IV PUSH Q4H PRN Nausea Pantoprazole Sodium 40 mg 04/13/25 09:10 04/21/25 08:11 Pantoprazole Sodium Iv 40 Mg Vial IV PUSH 40 mg QAM OLENA Administration Perflutren Lipid Microsphere 0 ml 04/21/25 18:23 Perflutren Lipid Microspheres 1.5 Ml Vial Diluted To 10 Ml Total Volume IV PUSH 04/24/25 18:24 ONCE PRN adequate visualization Protocol Simvastatin 40 mg 04/12/25 12:45 04/21/25 08:12 Simvastatin 20 Mg Tablet BY MOUTH 40 mg DAILY OLENA Administration Radiology Results: ITS Impressions Head CT 04/12/25 06:53 IMPRESSION: 1. No acute intracranial findings. Head/Neck CTA 04/12/25 07:10 IMPRESSION: CTA NECK: 1. Type II odontoid fracture. 2. No acute cervical arterial abnormality. 3. Mild esophageal wall thickening. 4. Lung apices with mild bronchiolitis. CTA HEAD: 1. No acute findings. Chest X-Ray 04/13/25 11:52 IMPRESSION: 1: Small interstitial and airspace opacities scattered throughout both lungs, more prominent on the left. Differential includes but is not limited to edema or pneumonia. Recommend follow-up to resolution. Brain MRI 04/13/25 13:21 IMPRESSION: 1. 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 2. Moderate nonspecific cerebral white matter disease, which likely represents chronic small vessel ischemic disease. 3. Type II odontoid fracture. Elbow X-Ray 04/15/25 15:04 Impression: No acute fracture or malalignment. Modified Barium Swallow 04/17/25 14:10 IMPRESSION: Pharyngeal dysphagia with laryngeal penetration with aspiration. Please correlate with speech pathologist findings and specific feeding recommendations. Abdomen X-Ray 04/17/25 20:13 IMPRESSION: Enteric tube terminates in the stomach but the sidehole is at the GE junction and advancement is recommended Labs Labs: Laboratory Results - last 24 hr 04/21/25 04/21/25 04/21/25 10:59 18:56 23:40 WBC RBC Hgb Hct MCV MCH MCHC RDW Plt Count MPV Immature Gran % (Auto) Neut % (Auto) Lymph % (Auto) [place] % (Auto) Eos % (Auto) Baso % (Auto) Lymph # (Auto) [place] # (Auto) Eos # (Auto) Baso # (Auto) Abs Immat Gran (auto) Absolute Neuts (auto) Absolute Nucleated RBC Nucleated RBC % Sodium Potassium Chloride Carbon Dioxide Anion Gap BUN Creatinine Estim Creat Clear Calc Estimated GFR Glucose POC Capillary Glucose 161 H 170 H 166 H Calcium 04/22/25 04/22/25 04:09 05:53 WBC 10.9 H RBC 2.51 L Hgb 8.1 L Hct 24.7 L MCV 98.4 MCH 32.3 MCHC 32.8 RDW 14.5 Plt Count 198 MPV 9.7 Immature Gran % (Auto) 0.8 H Neut % (Auto) 69.7 Lymph % (Auto) 12.4 L [place] % (Auto) 9.8 H Eos % (Auto) 6.9 H Baso % (Auto) 0.4 Lymph # (Auto) 1.35 [place] # (Auto) 1.1 H Eos # (Auto) 0.8 H Baso # (Auto) 0.0 Abs Immat Gran (auto) 0.09 H Absolute Neuts (auto) 7.6 H Absolute Nucleated RBC 0.000 Nucleated RBC % 0.0 Sodium 143 Potassium 3.9 Chloride 113 H Carbon Dioxide 23 Anion Gap 7 BUN 64 H Creatinine 3.02 H Estim Creat Clear Calc 14 Estimated GFR 20 L Glucose 166 H POC Capillary Glucose 155 H Calcium 8.9 Quality VTE Prophylaxis VTE prophylaxis: mechanical ordered
[2025-04-22] MEDS: APIXABAN 2.5 MG TABLET PO ×2 (08:56→21:23)
[2025-04-22] MEDS: SIMVASTATIN 20 MG TABLET 40 MG BY MOUTH (08:56)
[2025-04-22] MEDS: levETIRAcetam ORAL SOL 500 MG/5 ML UDC 750 MG FEED TUBE ×2 (08:56→21:23)
[2025-04-22] MEDS: PANTOPRAZOLE SODIUM IV 40 MG VIAL IV PUSH (08:56)
[2025-04-22] MEDS: LABETALOL HCL 100 MG TABLET FEED TUBE ×2 (08:56→21:23)
[2025-04-22] MEDS: AMOXICILLIN/CLAVULANATE K SUSP 500 MG/6.25 ML UD FEED TUBE ×2 (09:15→21:23)
--- NOTE | 2025-04-22 11:30 | PCOTNOTE ---
Patient unavailable at this time. Patient having testing done in the room, will try back at a later time.
[2025-04-22] MEDS: PERFLUTREN LIPID MICROSPHERES 1.5 ML VIAL DILUTED TO 10 ML TOTAL VOLUME IV PUSH (12:12)
--- NOTE | 2025-04-22 12:12 | IVDEFINITY ---
Prior to administration of IV Definity the patient was educated on the risks and benefits of the imaging enhancing agent including potential adverse side effects. The patient verbalized understanding. Allergies were verified. No exclusion criteria were identified and at least one of the following inclusion criteria were met: 1) physician request, 2) patient technically difficult to image (per the [place] [employer] guidelines of two or more segments not discernable within the apical view), or 3) questionable left ventricular function. ?
[2025-04-23] VITALS (10 sets, daily range): BP systolic 128–169; BP diastolic 55–75; PULSE 65–90; RESP 14–18; TEMP 36.2–36.5; O2SAT 98–100
[2025-04-23 05:40] LABS: Hematocrit 24.5 % (42.0-52.0); Hemoglobin 8.0 g/dL (14.0-18.0); Immature Granulocyte Percent A 1.0 % (0-0.5); Lymphocytes Absolute Auto 1.46 K/mm3 (0.9-3.2); Mean Corpuscular HGB Conc 32.7 g/dl (32-36); Mean Corpuscular Hemoglobin 32.3 pg (26-34); Mean Corpuscular Volume 98.8 fl (80-100); Nucleated Red Blood Cells Absolute Auto 0.000 K/mm3 (0.0-0.012); Nucleated Red Blood Cells Perc 0.0 % (0.0-0.2); Platelet Count Result 250 k/mm3 (150-375); Red Blood Count 2.48 M/mm3 (4.6-6.20); White Blood Count 11.1 K/mm3 (4.5-10.0)
[2025-04-23 06:01] LABS: Anion Gap 7 mmol/L (4-12); Blood Urea Nitrogen 69 mg/dL (9-20); Calcium 8.8 mg/dL (8.4-10.2); Carbon Dioxide 23 mmol/L (22-30); Chloride 112 mmol/L (98-107); Estimated CRCL calculation 13 ml/min; Estimated Glomerular Filt Rate 22; Glucose 161 mg/dL (65-110); Potassium 3.9 mmol/L (3.4-5.0); Sodium 142 mmol/L (137-145)
[2025-04-23] MEDS: LABETALOL HCL 100 MG TABLET FEED TUBE ×2 (09:31→20:20)
[2025-04-23] MEDS: levETIRAcetam ORAL SOL 500 MG/5 ML UDC 750 MG FEED TUBE ×2 (09:31→20:19)
[2025-04-23] MEDS: PANTOPRAZOLE SODIUM IV 40 MG VIAL IV PUSH (09:31)
[2025-04-23] MEDS: APIXABAN 2.5 MG TABLET PO ×2 (09:32→20:20)
[2025-04-23] MEDS: SIMVASTATIN 20 MG TABLET 40 MG BY MOUTH (09:32)
--- NOTE | 2025-04-23 14:32 | PCOTNOTE ---
Attempted for OT treatment session this P.M. Patient declined, states he had recently got back to bed, very tired, sleeping, come back tomorrow. Patient also seems frustrated due to not being able to drink water, I just want to sleep if I can not drink.
[2025-04-24] VITALS: BP 167/59; PULSE 79; RESP 18; TEMP 36.5; O2SAT 99
[2025-04-24 00:02] VITALS: PULSE 61
[2025-04-24 04:00] VITALS: BP 174/67; PULSE 77; RESP 16; TEMP 36.3; O2SAT 98
[2025-04-24 04:04] VITALS: PULSE 73
[2025-04-24 06:19] LABS: Hematocrit 24.8 % (42.0-52.0); Hemoglobin 8.0 g/dL (14.0-18.0); Immature Granulocyte Percent A 0.9 % (0-0.5); Lymphocytes Absolute Auto 1.43 K/mm3 (0.9-3.2); Mean Corpuscular HGB Conc 32.3 g/dl (32-36); Mean Corpuscular Hemoglobin 31.9 pg (26-34); Mean Corpuscular Volume 98.8 fl (80-100); Nucleated Red Blood Cells Absolute Auto 0.000 K/mm3 (0.0-0.012); Nucleated Red Blood Cells Perc 0.0 % (0.0-0.2); Platelet Count Result 264 k/mm3 (150-375); Red Blood Count 2.51 M/mm3 (4.6-6.20); White Blood Count 11.7 K/mm3 (4.5-10.0)
[2025-04-24 06:40] LABS: Anion Gap 7 mmol/L (4-12); Blood Urea Nitrogen 69 mg/dL (9-20); Calcium 9.0 mg/dL (8.4-10.2); Carbon Dioxide 24 mmol/L (22-30); Chloride 110 mmol/L (98-107); Estimated CRCL calculation 13 ml/min; Estimated Glomerular Filt Rate 21; Glucose 159 mg/dL (65-110); Potassium 4.1 mmol/L (3.4-5.0); Sodium 141 mmol/L (137-145)
[2025-04-24 08:00] VITALS: BP 168/60; PULSE 75; PULSE 81; RESP 16; TEMP 36.7; O2SAT 99
[2025-04-24] MEDS: LABETALOL HCL 100 MG TABLET FEED TUBE (08:32)
[2025-04-24] MEDS: SIMVASTATIN 20 MG TABLET 40 MG BY MOUTH (08:32)
[2025-04-24] MEDS: PANTOPRAZOLE SODIUM IV 40 MG VIAL IV PUSH (08:33)
[2025-04-24] MEDS: APIXABAN 2.5 MG TABLET PO (08:33)
[2025-04-24] MEDS: levETIRAcetam ORAL SOL 500 MG/5 ML UDC 750 MG FEED TUBE (08:51)
--- NOTE | 2025-04-24 11:04 | P.PNIM_ITS ---
Progress Note: A&P Assessment and Plan (1) Seizure: Code(s): R56.9 - Unspecified convulsions Status: Acute Assessment and Plan: -Patient presented with AMS and shaking episode in the bed. EMS was called. Patient was in a postictal state after the event -Head CT with no acute intracranial findings. -CTA neck showed type 2 odontoid fracture. No acute cervical arterial abnormality. Mild esophageal wall thickening. Lung apices with mild bronchiolitis. -Daily chronic alcohol drinker. UDS was all negative. Alcohol level <10 -Probable seizure disorder - related to alcohol w/d?. 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 - neurology consulted, increased Keppra to 750mg BID. -Increased Keppra to 750 mg Q12h. EEG showing normal record. -Continue seizure precautions. Continue Keppra. -Placement being arranged for patient to go to [facility], awaiting insurance approval (2) Dysphagia: Code(s): R13.10 - Dysphagia, unspecified Status: Acute Assessment and Plan: -Speech therapy felt patient could tolerate ice chips but otherwise should remain NPO -Plan was for hospice but now more awake and alert -Bedside swallow evaluation was poor so MBS performed 04/17 showing patient should remain NPO. -Spoke with patient and family at bedside (with his permission) and he was agreeable for PEG placement. He understands that he may never be able to swallow safely again -NGT placed for enteral nutrition and GI consulted. Patient underwent PEG placement 04/20. TF resumed. Continue ST. (3) AMS (altered mental status): Qualifiers: Altered mental status type: unspecified Qualified Code(s): R41.82 - Altered mental status, unspecified Code(s): R41.82 - Altered mental status, unspecified Status: Acute Assessment and Plan: -AMS felt related to seizure. Patient is alert and oriented x4. -Continue to monitor. (4) Type II fracture of odontoid process: Code(s): S12.110A - Anterior displaced Type II dens fracture, initial encounter for closed fracture Status: Acute Assessment and Plan: -Patient presented with seizure-like activity -CTA neck showed type 2 odontoid fracture. -Patient was placed in [place] collar. - NSG consulted - no acute surgical intervention planned, maintain C-collar at all time, avoid pushing/pulling or lifiting greater than 10 lbs. Follow-up in 6 weeks. -continue PT/OT (5) Essential (primary) hypertension: Code(s): I10 - Essential (primary) hypertension Status: Chronic Assessment and Plan: -BP elevated here and this has been long standing. Only on labetalol at home. - continue labetalol, hydralazine. monitor BP trend. (6) Atrial fibrillation: Code(s): I48.91 - Unspecified atrial fibrillation Status: Acute Assessment and Plan: -Atrial fibrillation with mild RVR. Labetalol scheduled. -With AFib he was switched to heparin drip -[id number] 6. TSH normal -He is in/out AFib -Follow on tele. Heparin drip stopped for PEG placement. -Discussed with GI. Acuña to start Eliquis. (7) Diabetes mellitus: Qualifiers: Diabetes mellitus type: type 2 Diabetes mellitus penitentiary insulin use: without penitentiary use Diabetes mellitus complication status: with kidney complications Diabetes mellitus complication detail: with chronic kidney disease Chronic kidney disease stage: stage 4 (severe) Qualified Code(s): E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; N18.4 - Chronic kidney disease, stage 4 (severe) Code(s): E11.9 - Type 2 diabetes mellitus without complications Status: Chronic Assessment and Plan: -A1c 6.1% in Feb. The patient's blood glucose was reviewed on 04/21 -Glucose reasonably well-controlled -Continue AccuCheks covering with sliding scale. Hypoglycemia protocol available as needed. -Continue to monitor (8) CKD (chronic kidney disease) stage 3, GFR 30-59 ml/min: Qualifiers: Chronic kidney disease stage 3 subtype: unspecified whether 3a or 3b Qualified Code(s): N18.30 - Chronic kidney disease, stage 3 unspecified Code(s): N18.30 - Chronic kidney disease, stage 3 unspecified Status: Acute Assessment and Plan: -Patient with CKD stage 4. Baseline creatinine 2.5-3.5. -Cr improved to 2.5 but was on fluids. Cr now trending up to 3.02 today -Probably still within his baseline. Good UOP before Hamilton removed. -Monitor UOP since [place] is out. (9) Pneumonia: Code(s): J18.9 - Pneumonia, unspecified organism Status: Acute Assessment and Plan: -CXR showing small interstitial and airspace opacities scattered t/o both lungs. Consider aspiration vs CAP vs edema. BNP 25K. Influenza, RSV and COVID swab negative. Transitioned Zosyn to Augmentin per GTube to complete a course. He remains on room air. Apnea link incomplete. Plan DVT prophylaxis: [place] Code status: DNR Dispo: VITA 1-2 days Subjective Date/time seen: 04/23/25 1100 Interval history: Patient seen and examined at bedside. Alert and oriented x4. Complaining of dry mouth and wanting ice. Denied chest pain, SOB. Exam Narrative: General: NAD Eyes: EOMI ENT: neck supple Cardiovascular: Regular rate and rhythm Respiratory: Clear to auscultation, respirations even and unlabored on RA Gastrointestinal: Soft, non tender. PEG tube in place with no significant s urrounding erythema or drainage. Genitourinary: no suprapubic tenderness Musculoskeletal: No edema Skin: warm, dry Neuro: Alert. Psych: Mood appropriate Objective Data Vital Signs Vital Signs: Vital Signs - 24 hr 04/23/25 12:00 04/23/25 13:50 04/23/25 16:00 Temperature 97.2 F L Pulse Rate 67 68 Respiratory Rate 14 Blood Pressure 128/55 L 137/72 Pulse Oximetry 100 Oxygen Delivery 04/23/25 16:00 04/23/25 20:00 04/23/25 20:00 Temperature 97.7 F Pulse Rate 75 79 75 Respiratory Rate 18 Blood Pressure 167/59 H Pulse Oximetry 99 Oxygen Delivery 04/23/25 20:10 04/23/25 20:20 04/23/25 23:27 Temperature Pulse Rate 75 75 Respiratory Rate 18 Blood Pressure Pulse Oximetry 98 98 Oxygen Delivery Room Air Room Air 04/24/25 00:00 04/24/25 00:02 04/24/25 04:00 Temperature 97.7 F 97.4 F L Pulse Rate 79 61 77 Respiratory Rate 18 16 Blood Pressure 167/59 H 174/67 H Pulse Oximetry 99 98 Oxygen Delivery 04/24/25 04:04 04/24/25 08:00 04/24/25 08:00 Temperature 98.0 F Pulse Rate 73 75 Respiratory Rate 16 Blood Pressure 168/60 H Pulse Oximetry 99 Oxygen Delivery Room Air 04/24/25 08:00 Temperature Pulse Rate 81 Respiratory Rate Blood Pressure Pulse Oximetry Oxygen Delivery Intake/Output Intake/Output: Intake & Output 04/21/25 04/22/25 04/23/25 04/24/25 23:59 23:59 23:59 23:59 Intake Total 1228 1262 840 Output Total 875 2 Balance 353 1260 840 Meds/Results Medications: Active Medications Generic Name Dose Route Start Last Admin Trade Name Freq PRN Reason Stop Dose Admin Acetaminophen 650 mg 04/21/25 09:10 Acetaminophen Elixir 325 Mg/10.15 Ml Udc FEED TUBE Q4H PRN Mild Pain (1-3) or Fever Amlodipine Besylate 5 mg 04/18/25 01:15 04/24/25 08:33 Amlodipine Besylate 5 Mg Tablet FEED TUBE 5 mg DAILY OLENA Administration Apixaban 2.5 mg 04/22/25 09:00 04/24/25 08:33 Apixaban 2.5 Mg Tablet PO 2.5 mg Q12HR OLENA Administration Hydralazine HCl 10 mg 04/18/25 01:16 04/20/25 08:03 Hydralazine Hcl 20 Mg/Ml Vial IV PUSH 10 mg Q4HR PRN Administration SBP >180mmHg. Hydralazine HCl 25 mg 04/20/25 22:00 04/24/25 05:19 Hydralazine Hcl 25 Mg Tablet FEED TUBE 25 mg Q8H OLENA Administration Labetalol HCl 100 mg 04/18/25 01:15 04/24/25 08:32 Labetalol Hcl 100 Mg Tablet FEED TUBE 100 mg Q12HR OLENA Administration Levetiracetam 750 mg 04/20/25 21:00 04/24/25 08:51 Levetiracetam Oral Pallavi 500 Mg/5 Ml Udc FEED TUBE 750 mg Q12HR OLENA Administration Ondansetron HCl 4 mg 04/12/25 06:32 Ondansetron Inj 4 Mg/2 Ml Vial IV PUSH Q4H PRN Nausea Pantoprazole Sodium 40 mg 04/13/25 09:10 04/24/25 08:33 Pantoprazole Sodium Iv 40 Mg Vial IV PUSH 40 mg QAM OLENA Administration Simvastatin 40 mg 04/12/25 12:45 04/24/25 08:32 Simvastatin 20 Mg Tablet BY MOUTH 40 mg DAILY OLENA Administration Radiology Results: ITS Impressions Head CT 04/12/25 06:53 IMPRESSION: 1. No acute intracranial findings. Head/Neck CTA 04/12/25 07:10 IMPRESSION: CTA NECK: 1. Type II odontoid fracture. 2. No acute cervical arterial abnormality. 3. Mild esophageal wall thickening. 4. Lung apices with mild bronchiolitis. CTA HEAD: 1. No acute findings. Chest X-Ray 04/13/25 11:52 IMPRESSION: 1: Small interstitial and airspace opacities scattered throughout both lungs, more prominent on the left. Differential includes but is not limited to edema or pneumonia. Recommend follow-up to resolution. Brain MRI 04/13/25 13:21 IMPRESSION: 1. 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 2. Moderate nonspecific cerebral white matter disease, which likely represents chronic small vessel ischemic disease. 3. Type II odontoid fracture. Elbow X-Ray 04/15/25 15:04 Impression: No acute fracture or malalignment. Modified Barium Swallow 04/17/25 14:10 IMPRESSION: Pharyngeal dysphagia with laryngeal penetration with aspiration. Please correlate with speech pathologist findings and specific feeding recommendations. Abdomen X-Ray 04/17/25 20:13 IMPRESSION: Enteric tube terminates in the stomach but the sidehole is at the GE junction and advancement is recommended Venous Doppler Study 04/22/25 16:36 Impression: Negative for DVT. Labs Labs: Laboratory Results - last 24 hr 04/23/25 04/24/25 04/24/25 12:06 05:54 06:50 WBC 11.7 H RBC 2.51 L Hgb 8.0 L Hct 24.8 L MCV 98.8 MCH 31.9 MCHC 32.3 RDW 14.5 Plt Count 264 MPV 10.6 H Immature Gran % (Auto) 0.9 H Neut % (Auto) 72.5 Lymph % (Auto) 12.3 L [place] % (Auto) 9.2 H Eos % (Auto) 4.7 H Baso % (Auto) 0.4 Lymph # (Auto) 1.43 [place] # (Auto) 1.1 H Eos # (Auto) 0.6 H Baso # (Auto) 0.1 Abs Immat Gran (auto) 0.11 H Absolute Neuts (auto) 8.4 H Absolute Nucleated RBC 0.000 Nucleated RBC % 0.0 Sodium 141 Potassium 4.1 Chloride 110 H Carbon Dioxide 24 Anion Gap 7 BUN 69 H Creatinine 2.93 H Estim Creat Clear Calc 13 Estimated GFR 21 L Glucose 159 H POC Capillary Glucose 167 H 188 H Calcium 9.0 Quality VTE Prophylaxis VTE prophylaxis: mechanical ordered
[2025-04-24 12:00] VITALS: BP 116/50; PULSE 63; RESP 16; TEMP 36.8; O2SAT 99
--- NOTE | 2025-04-24 12:03 | PCNFU ---
Nutrition Follow-Up Complete: Inadequate energy intake related to pt not alert and oriented as evidenced by nursing report Goal:Meet estimated needs via PO or alternative nutrition support if needed Pt meeting goal. Pt current nutrition is NPO, Tube feeding:Glucerna 1.2 @ 60ml/hr = 1584kcals, 79g protein, 1062ml free water. Nutrition recommendation: continue with current plan of care Last recorded weight is 53 kg. Bowel Motility: +BM 04/24 Labs Reviewed: Hgb:8.0, HCT:24.8, GFR:21, BUN:69, Cr:2.9, Glu:159 Meds Noted: protonix, zofran, eliquis Skin: WNL Additional Notes: Pt continues on same tube feeding, at goal rate, tolerating well. Pt to move to [facility] today. Agree with plan. Monitor diet orders, alertness, wt, labs. follow up every Sunday and Sunday.
--- NOTE | 2025-04-24 15:07 | PM.DS ---
DS: Admitting Diagnosis Discharge Date 04/24/25 Admitting Diagnosis - seizure - dysphagia - AMS - type II odontoid process fx DS: Discharge Diagnosis Discharge Diagnosis (1) Seizure: Code(s): R56.9 - Unspecified convulsions Status: Acute (2) Dysphagia: Code(s): R13.10 - Dysphagia, unspecified Status: Acute (3) AMS (altered mental status): Qualifiers: Altered mental status type: unspecified Qualified Code(s): R41.82 - Altered mental status, unspecified Code(s): R41.82 - Altered mental status, unspecified Status: Acute (4) Type II fracture of odontoid process: Code(s): S12.110A - Anterior displaced Type II dens fracture, initial encounter for closed fracture Status: Acute (5) Essential (primary) hypertension: Code(s): I10 - Essential (primary) hypertension Status: Chronic (6) Atrial fibrillation: Code(s): I48.91 - Unspecified atrial fibrillation Status: Acute (7) Diabetes mellitus: Qualifiers: Chronic kidney disease stage: stage 4 (severe) Diabetes mellitus complication detail: with chronic kidney disease Diabetes mellitus complication status: with kidney complications Diabetes mellitus prison insulin use: without prison use Diabetes mellitus type: type 2 Qualified Code(s): E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; N18.4 - Chronic kidney disease, stage 4 (severe) Code(s): E11.9 - Type 2 diabetes mellitus without complications Status: Chronic (8) CKD (chronic kidney disease) stage 3, GFR 30-59 ml/min: Qualifiers: Chronic kidney disease stage 3 subtype: unspecified whether 3a or 3b Qualified Code(s): N18.30 - Chronic kidney disease, stage 3 unspecified Code(s): N18.30 - Chronic kidney disease, stage 3 unspecified Status: Acute (9) Pneumonia: Code(s): J18.9 - Pneumonia, unspecified organism Status: Acute DS: Summary Hospital Course Reason for hospitalization: - seizure - dysphagia - AMS - type II odontoid process fx Hospital Course: 84-year-old male with PMH/of HTN, hyperlipidemia, CKD was brought in with altered mental status/seizure disorder which is sudden onset. Patient who states that he started shaking on the bed and was not responding. Upon EMS arrival patient was having seizure like activity and was in a postictal state at the time he came to the ER patient was extremely restless not obeying verbal commands, his pupils were unequal. ER: urine tox screen-negative, WBC 8.3, hg/hct 10.3/31.5, plt 238. lactic 1.9, Na 138, K 3.8, cr 3.08, bun 55 (cr previously was in this range as well). hga1c was checked on 02/27/25 -6.1. liver enzymes wnl. IMPRESSION: CTA NECK: 1. Type II odontoid fracture. 2. No acute cervical arterial abnormality. 3. Mild esophageal wall thickening. 4. Lung apices with mild bronchiolitis. CTA HEAD: 1. No acute findings. - CT cervical spine- type 2 odontoid fracture. Patient was placed in an a [place] collar. Neurology was consulted. In regards to seizure - suspect related to alcohol use or withdrawal. EEG was normal. 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 Neurology was consulted and recommended Keppra 750 mg twice daily. Patient had no further seizure activity while admitted. He was noted to be more confused on admission Patient noted to have dysphagia. Failed MBS 04/17. Peg tube was placed 04/20 and tube feeds were started which patient has tolerated well. He currently remains strict NPO and will continue speech therapy at [facility]. In regards to fracture of odontoid process, neurosurgery was consulted and recommended an [place] collar at all times. No surgical intervention warranted. He will follow-up in their office in 6 weeks. Continue PT/OT VITA. Patient has prior history of hypertension and BP trend has been intermittently elevated here. His labetalol and hydralazine has been restarted with some improvement however he may require continued titration of his medications in the outpatient setting. Patient noted to have new onset atrial fibrillation which improved with restarting labetalol. He was started on Eliquis. He will need follow-up with Cardiology as an outpatient. Patient was also treated for community acquired pneumonia with a 5 day course of antibiotics. Patient remained on room air and denied symptoms of pneumonia on day of discharge. Patient has CKD with baseline fluctuating creatinine. Follows with Dr. Pena as an outpatient. Creatinine overall stable on discharge. Continue to hold Lasix due to patient now being on tube feeds and appearing euvolemic. Monitor volume status while at [facility]. Patient was discharged to [facility] in stable condition. Status at Discharge Overall status at discharge: patient is progressing back to baseline Time Spent with Patient Time attestation: Total time spent providing and/or coordinating discharge services: Time spent: Greater than 30 minutes Exam Narrative: General: NAD Eyes: EOMI ENT: neck supple Cardiovascular: Regular rate and rhythm Respiratory: Clear to auscultation, respirations even and unlabored on RA Gastrointestinal: Soft, non tender. PEG tube in place with no significant surrounding erythema or drainage. Genitourinary: no suprapubic tenderness Musculoskeletal: No edema, C-collar in place Skin: warm, dry Neuro: Alert. Psych: Mood appropriate DS: Data Data Completed and Pending Completed studies during hospitalization: ITS Impressions Head CT 04/12/25 06:53 IMPRESSION: 1. No acute intracranial findings. Head/Neck CTA 04/12/25 07:10 IMPRESSION: CTA NECK: 1. Type II odontoid fracture. 2. No acute cervical arterial abnormality. 3. Mild esophageal wall thickening. 4. Lung apices with mild bronchiolitis. CTA HEAD: 1. No acute findings. Chest X-Ray 04/13/25 11:52 IMPRESSION: 1: Small interstitial and airspace opacities scattered throughout both lungs, more prominent on the left. Differential includes but is not limited to edema or pneumonia. Recommend follow-up to resolution. Brain MRI 04/13/25 13:21 IMPRESSION: 1. 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 2. Moderate nonspecific cerebral white matter disease, which likely represents chronic small vessel ischemic disease. 3. Type II odontoid fracture. Elbow X-Ray 04/15/25 15:04 Impression: No acute fracture or malalignment. Modified Barium Swallow 04/17/25 14:10 IMPRESSION: Pharyngeal dysphagia with laryngeal penetration with aspiration. Please correlate with speech pathologist findings and specific feeding recommendations. Abdomen X-Ray 04/17/25 20:13 IMPRESSION: Enteric tube terminates in the stomach but the sidehole is at the GE junction and advancement is recommended Venous Doppler Study 04/22/25 16:36 Impression: Negative for DVT. Labs on day of discharge: Labs from last 24 hours 04/24/25 04/24/25 04/24/25 11:44 06:50 05:54 WBC 11.7 H RBC 2.51 L Hgb 8.0 L Hct 24.8 L MCV 98.8 MCH 31.9 MCHC 32.3 RDW 14.5 Plt Count 264 MPV 10.6 H Immature Gran % (Auto) 0.9 H Neut % (Auto) 72.5 Lymph % (Auto) 12.3 L [place] % (Auto) 9.2 H Eos % (Auto) 4.7 H Baso % (Auto) 0.4 Lymph # (Auto) 1.43 [place] # (Auto) 1.1 H Eos # (Auto) 0.6 H Baso # (Auto) 0.1 Abs Immat Gran (auto) 0.11 H Absolute Neuts (auto) 8.4 H Absolute Nucleated RBC 0.000 Nucleated RBC % 0.0 Sodium 141 Potassium 4.1 Chloride 110 H Carbon Dioxide 24 Anion Gap 7 BUN 69 H Creatinine 2.93 H Estim Creat Clear Calc 13 Estimated GFR 21 L Glucose 159 H POC Capillary Glucose 169 H 188 H Calcium 9.0 Discharge Plan Discharge Attending physician on discharge: Papo Martin Consulting providers: Dino Damon; Alverto Angulo Discharging Clinician: Marguerite Andrew Anticipated Discharge Date/Time: 04/24/25 11:02 Patient Disposition: [facility] Activity: other - see discharge instructions Diet: NPO and other - see discharge instructions Discharge Instructions: NSG consulted - no acute surgical intervention planned, maintain C-collar at all time, avoid pushing/pulling or lifting greater than 10 lbs. Follow-up with Dr. Angulo in 6 weeks. Check CBC and CMP in 3 days to monitor Hgb and Cr. Patient has CKD with baseline creatitine that is worsening and fluctuates, 2.5-[address] Pena if there are any concerns. He was on Lasix, but we are holding that right now. Watch for signs of fluid overload with swelling or SOB. Pt current nutrition is NPO, Tube feeding: Glucerna 1.2 @ 60ml/hr = 1584kcals, 79g protein, 1062ml free water. Nutrition recommendation: continue with current plan of care Eliquis is a new medication for patient. Patient Instructions: Apixaban (By mouth) Patient Language: Kazakh Discharge Medications: New acetaminophen [Nortemp] 160 mg/5 mL Suspension 650 mg feeding tube Q4H PRN (Reason: Mild Pain (1-3) Or Fever) Qty: 30 0RF hydralazine 25 mg Tablet 25 mg feeding tube Q8H Qty: 90 0RF amlodipine [Norvasc] 5 mg Tablet 5 mg feeding tube DAILY Qty: 30 0RF levetiracetam 100 mg/mL Solution 750 mg feeding tube Q12HR Qty: 473 0RF Eliquis 2.5 mg Tablet 2.5 mg feeding tube Q12HR Qty: 60 0RF famotidine [Pepcid] 20 mg tablet 10 mg feeding tube EVERY OTHER DAY Qty: 30 0RF Continued simvastatin 40 mg tablet See Rx Instructions .ROUTE .COMPLEX Qty: 90 2RF Dose Instruction: TAKE 1 TABLET BY MOUTH EVERY DAY Rx Instructions: TAKE 1 TABLET BY MOUTH EVERY DAY Changed labetalol 100 mg tablet 100 mg feeding tube BID Qty: 180 2RF Dose Instruction: TAKE 1 TABLET BY MOUTH TWICE A DAY Rx Instructions: TAKE 1 TABLET BY MOUTH TWICE A DAY febuxostat 80 mg tablet 80 mg feeding tube DAILY Qty: 90 1RF Held furosemide 40 mg tablet See Rx Instructions .ROUTE .COMPLEX Qty: 90 2RF Hold Instructions: Resume on 04/24/25. Resume PRN for edema, SOB Dose Instruction: TAKE 1 TABLET BY MOUTH EVERY DAY Rx Instructions: TAKE 1 TABLET BY MOUTH EVERY DAY Discontinued magnesium 250 mg tablet 250 mg PO .3 times weekly Patient Comments: administer sunday, , and sunday Other Ambulatory Orders: Complete Blood Count with Diff (Routine) Timeframe: 3 Days Location: Determined by Patient Ordered By: Marguerite Andrew Comprehensive Metabolic Panel (Routine) Timeframe: 3 Days Location: Determined by Patient Ordered By: Margueriet Andrew Date of admission: 04/12/25 10:38 Primary Care Provider: Yayo Thomas Admitting Provider: Lindy Ramos Attending physician on admission: Lindy Ramos Condition: Stable
== END 2025-04-24 18:00 | DRG 100 ==
LOC: ANHED 06:32 → ANHIMU 10:39 → ANH3MEDSUR 04-22 07:56 → ANHIMU 04-27 09:41
PROVIDERS: Internal Medicine; Internal Medicine Gastroenterology; Nurse Practitioner; Admitting Provider General Practice; Emergency Provider Family Medicine; PCP Emergency Medicine; Visit Provider Physician Assistant
PROC: 0DH63UZ Insertion of Feeding Device into Stomach, Percutaneous Approach (ICD-10-PCS; CPT 43246; principal; 2025-04-20 10:00)
DX: G40.509 Epileptic seizures related to external causes, not intractable, without status epilepticus (principal); J18.9 Pneumonia, unspecified organism; F10.939 Alcohol use, unspecified with withdrawal, unspecified; S12.110A Anterior displaced Type II dens fracture, initial encounter for closed fracture; N18.4 Chronic kidney disease, stage 4 (severe); G93.40 Encephalopathy, unspecified; G40.909 Epilepsy, unspecified, not intractable, without status epilepticus; R13.10 Dysphagia, unspecified; E78.5 Hyperlipidemia, unspecified; E78.2 Mixed hyperlipidemia; M10.9 Gout, unspecified; I12.9 Hypertensive chronic kidney disease with stage 1 through stage 4 chronic kidney disease, or unspecified chronic kidney disease; E11.22 Type 2 diabetes mellitus with diabetic chronic kidney disease; F41.9 Anxiety disorder, unspecified; I48.91 Unspecified atrial fibrillation; I70.0 Atherosclerosis of aorta; M19.90 Unspecified osteoarthritis, unspecified site; M48.061 Spinal stenosis, lumbar region without neurogenic claudication; R41.82 Altered mental status, unspecified; Z90.49 Acquired absence of other specified parts of digestive tract; Z87.891 Personal history of nicotine dependence; Z66 Do not resuscitate; Z86.73 Personal history of transient ischemic attack (TIA), and cerebral infarction without residual deficits; Z85.46 Personal history of malignant neoplasm of prostate
CPT/HCPCS: 36415; 43246; 70450; 70496; 70498; 70553; 71045; 73070; 74230; 80048; 80053; 80069; 80307; 81001; 82077; 82140; 82948; 83605; 83735; 83880; 84100; 84443; 84484; 85025; 85027; 85610; 85730; 86738; 87040; 87449; 87637; 87641; 92507; 92526; 92610; 92611; 93005; 93971; 94762; 95816; 96372; 96374; 96375; 96376; 97110; 97162; 97166; 97530; 97535; 99285; A9270; A9577; C8929; J0360; J1171; J1644; J1953; J2003; J2250; J2359; J2470; J2543; J2704; J3360; J3373; J3475; J3480; J7030; J7040; J7042; J7070; J7120; Q9957; Q9967

== ENCOUNTER 2025-05-02 14:22 | Inpatient (IN) | payer MEDICARE, SELFPAY ==
[2025-05-02] VITALS (16 sets, daily range): BP systolic 109–141; BP diastolic 48–69; PULSE 46–66; RESP 14–20; TEMP 34.1–36.6; O2SAT 96–100; BMI 21.7
--- NOTE | ~2025-05-02 | US_ITS ---
Examination: Ultrasound of the retroperitoneum including kidneys and bladder. Clinical History: elevated creatinine . Comparison: None available. Findings: Right kidney: 10 cm. Normal echogenicity. No collecting system dilatation. No shadowing calculi. 3 cysts, largest 24 mm. Left kidney: 10 cm. Normal echogenicity. No collecting system dilatation. No shadowing calculi. 2 cysts, the larger 18 mm, the other with small mural calcification Urinary bladder: Collapsed around Hamilton catheter. IMPRESSION: 1. No hydronephrosis. Reviewed, dictated and finalized at location R. FACTORY WORKER IMPRESSION: 1. No hydronephrosis.
--- NOTE | ~2025-05-02 | XR_ITS ---
EXAMINATION: XR chest 1V portable DATE: 05/15/2025 06:10 INDICATION: CHF TECHNIQUE: A single frontal view of the chest was obtained. COMPARISON: May 09 FINDINGS: Patchy alveolar changes in the right perihilar and right lung base region as well as the left lung base not clearly changed given variation in lung volumes. Upper lung ramsey are clear. Heart size normal. IMPRESSION: 1. Patchy areas of pneumonia or pulmonary edema right worse than left. Reviewed, dictated and finalized at location A. ELET MAKER NOVELTY
--- NOTE | ~2025-05-02 | XR_ITS ---
EXAMINATION: XR chest 1V portable COMPARISON: No comparisons available. HISTORY: elevated WBC'S FINDINGS: Mild pulmonary venous congestion. Bilateral infiltrates and small effusions. No pneumothorax. Mild cardiomegaly. Mediastinal and hilar contours are within normal limits. Bony thorax no acute abnormality. Miscellaneous: None Impression: CHF. Superimposed probable pneumonia Reviewed, dictated and finalized at location P. N MANAGER Impression: CHF. Superimposed probable pneumonia
--- NOTE | ~2025-05-02 | CT_ITS ---
EXAMINATION:CT diagnostic chest wo con DATE: 05/03/2025 09:09 INDICATION: Shortness of breath. TECHNIQUE: Computed tomography (CT) of the chest was performed without intravenous contrast. Automated exposure control and iterative reconstruction technique were employed. The dose-length product (DLP) was 230.54 mGy-cm. COMPARISON: Chest CT 02/18/2025 FINDINGS: There are moderate-sized bilateral pleural effusions. There is a crazy paving pattern in the upper lobes and right middle lobe and left lower lobe. There are scattered nodules in the upper lobes and lower lobes in clusters measuring up to 6 mm. There are airspace opacities in posterior segment right upper lobe. The heart size is normal. There are coronary artery calcifications. No pericardial effusion. Ascites is noted. There is a 2.4 mm cyst in right kidney. There is severe cervical, thoracic, and lumbar spondylosis. There are healing bilateral anterior rib fractures. IMPRESSION: 1. Diffuse lung disease, likely a combination of moderate pulmonary edema and pneumonia. 2. Moderate-sized pleural effusions. 3. Ascites. Reviewed, dictated and finalized at location E. TRIPPER OPERATOR IMPRESSION: 1. Diffuse lung disease, likely a combination of moderate pulmonary edema and p neumonia. 2. Moderate-sized pleural effusions. 3. Ascites.
--- NOTE | ~2025-05-02 | XR_ITS ---
Examination: XR chest 1V portable Clinical History: SOB Comparison: 04/13/2025 Technique: Portable AP Findings: Heart size normal. Worsening diffuse interstitial markings. Bibasilar atelectasis and/or effusions. No acute bony abnormality. IMPRESSION: 1. Interstitial pulmonary edema and/or pneumonitis. 2. Bibasilar atelectasis and/or pleural effusions. Reviewed, dictated and finalized at location R. DOWN MAN
--- NOTE | ~2025-05-02 | XR_ITS ---
Examination: XR chest 1V portable Clinical History: hx of pneumonia and CHF Comparison: Chest x-ray 05/07/2025 Technique: Portable AP Findings: Cardiomegaly. Diffusely increased interstitial markings. Pleural effusions and bibasilar opacities. No acute bony abnormality. IMPRESSION: 1. Interstitial pulmonary edema with pleural effusions. 2. Superimposed airspace disease not excluded. Reviewed, dictated and finalized at location R. BATOR MACHINE OPERATOR
--- NOTE | ~2025-05-02 | US_ITS ---
EXAMINATION: US venous doppler LE , 05/15/2025 13:00 ELECTRIC POWER LINE EXAMINER HISTORY: edema Comparison: None Technique: Nicole-scale and color Doppler images were attempted of the lower saphenofemoral junction, common femoral vein,superficial femoral vein, proximal deep femoral vein, proximal deep femoral vein, popliteal vein and posterior tibial veins. Findings: Deep Venous System:Normal flow, augmentation and compressibility. No echogenic thrombus identified. The contralateral saphenofemoral junction appears unremarkable. Superficial Venous SystemNo superficial thrombophlebitis. Soft tissues: Soft tissues are unremarkable. Impression: Negative for DVT. Reviewed, dictated and finalized at location P. TRIC POWER LINE EXAMINER Impression: Negative for DVT.
--- NOTE | ~2025-05-02 | XR_ITS ---
EXAMINATION: XR knee LT 3V DATE: 05/08/2025 14:03 INDICATION: Pain TECHNIQUE: Left knee were obtained. COMPARISON: None. FINDINGS: Moderately severe tricompartmental osteoarthritic appearing degenerative changes, and calcification of the menisci. Suprapatellar effusion may be present. No displaced fracture, dislocation or aggressive bone lesion seen. Extensive vascular calcifications. IMPRESSION: 1. Tricompartmental degenerative changes; calcification in the menisci could be associated with pseudogout or CPPD. 2. Extensive vascular calcification may be associated with peripheral artery disease. Reviewed, dictated and finalized at location A. ACE INSTALLER IMPRESSION: 1. Tricompartmental degenerative changes; calcification in the menisci could be associated with pseudogout or CPPD. 2. Extensive vascular calcification may be associated with peripheral artery di sease.
--- NOTE | ~2025-05-02 | XR_ITS ---
MODIFIED ESOPHAGRAM HISTORY: Dysphagia. TECHNIQUE: Modified barium esophagram was performed on 05/04/2025. I administered fluoroscopy and performed the exam with speech pathologist. Patient was seated for lateral fluoroscopic imaging for ingestion of thin liquids, pudding, solids and quantified amounts, followed by thin liquids in uncontrolled amounts. This was recorded on tape. A single fluoroscopic spot image was also recorded. The DAP for this procedure was 2.219 Gycm2. The amount of fluoroscopy time used during this procedure was 3.2 minutes. FINDINGS: Oral stage: Adequate function. Pharyngeal stage: Reduced laryngeal elevation, tongue base retraction and pharyngeal squeeze. There is vallecular and piriform sinus residue. Laryngeal penetration without aspiration. Cervical/esophageal stage: Adequate function. IMPRESSION: Pharyngeal dysphagia with laryngeal penetration without aspiration. Please correlate with speech pathologist findings and specific feeding recommendations. Reviewed, dictated and finalized at location A. E LAYER IMPRESSION: Pharyngeal dysphagia with laryngeal penetration without aspiration. Please correlate with speech pathologist findings and specific feeding recomm endations.
[2025-05-02 15:03] LABS: Immature Granulocyte Percent A 1.5 % (0-0.5); Lymphocytes Absolute Auto 1.31 K/mm3 (0.9-3.2); Mean Corpuscular HGB Conc 32.4 g/dl (32-36); Mean Corpuscular Hemoglobin 31.9 pg (26-34); Mean Corpuscular Volume 98.6 fl (80-100); Nucleated Red Blood Cells Absolute Auto 0.000 K/mm3 (0.0-0.012); Nucleated Red Blood Cells Perc 0.0 % (0.0-0.2); Platelet Count Result 330 k/mm3 (150-375); Red Blood Count 1.44 M/mm3 (4.6-6.20); White Blood Count 10.5 K/mm3 (4.5-10.0)
[2025-05-02 15:15] LABS: INR 1.6; Prothrombin Time 18.7 Seconds (11.1-14.7)
[2025-05-02 15:16] LABS: Partial Thromboplastin Time 48.0 Seconds (22.3-36.8)
[2025-05-02 15:25] LABS: Hemoglobin 4.6 g/dL (14.0-18.0)
[2025-05-02 15:26] LABS: Hematocrit 14.2 % (42.0-52.0)
[2025-05-02 15:35] LABS: Alanine Aminotransferase 24 U/L (6-50); Albumin Level 2.9 g/dL (3.5-5.1); Alkaline Phosphatase 104 U/L (38-126); Anion Gap 11 mmol/L (4-12); Aspartate Amino Transferase 31 U/L (17-59); Bilirubin,Total 0.3 mg/dL (0.2-1.3); Calcium 8.7 mg/dL (8.4-10.2); Carbon Dioxide 23 mmol/L (22-30); Chloride 97 mmol/L (98-107); Estimated CRCL calculation 11 ml/min; Estimated Glomerular Filt Rate 16; Glucose 142 mg/dL (65-110); Potassium 5.0 mmol/L (3.4-5.0); Sodium 131 mmol/L (137-145); Total Protein 6.2 g/dL (6.3-8.2)
[2025-05-02 15:36] LABS: Blood Urea Nitrogen 125 mg/dL (9-20)
--- NOTE | 2025-05-02 15:43 | ED_ITS ---
HPI - Recheck/Abnormal Lab/Rx General Chief Complaint: Recheck/Abnormal Lab/Rx <Jolene Larsen PA-C - Last Filed: 05/02/25 18:59> Stated Complaint: low H&H, low HR <Jolene Larsen PA-C - Last Filed: 05/02/25 18:59> Time Seen by Provider: 05/02/25 14:28 <Jolene Larsen PA-C - Last Filed: 05/02/25 18:59> Source: patient and family <Jolene Larsen PA-C - Last Filed: 05/02/25 18:59> Mode of arrival: EMS <SANDRA Odell Last Filed: 05/02/25 18:59> Limitations: no limitations <Jolene Larsen PA-C - Last Filed: 05/02/25 18:59> History of Present Illness HPI narrative: This is an 84-year-old male that presents to the emergency department for low hemoglobin. Patient is currently at [facility] after sustaining a neck fracture. On blood work today his hemoglobin was noted to be low at 4.8. Sent in for further evaluation. His does report he has had dark stools the last 4 days. He is currently taking Eliquis. Denies any pain currently. <Jolene Larsen PA-C - Last Filed: 05/02/25 18:59> Related Data Home Medications: Home Medications ?Medication ?Instructions ?Recorded ?Confirmed ?Last Taken ?Type furosemide 40 mg tablet See Rx Instructions .Route . COMPLEX 04/24/25 05/02/25 Unknown History simvastatin 40 mg tablet See Rx Instructions .Route . COMPLEX 04/24/25 05/02/25 04/24/25 History labetalol 100 mg tablet 100 mg feeding tube Q12H 02/1605/02/25 Unknown History <SANDRA Odell Last Filed: 05/02/25 18:59> Allergies/Adverse Reactions: Allergies Allergy/AdvReac Type Severity Reaction Status Date / Time allopurinol Allergy Unknown Skin Verified 05/02/25 18:36 Reaction diclofenac Allergy Unknown Pt doesn't Verified 05/02/25 18:36 know doxycycline Allergy Unknown hands Verified 05/02/25 18:36 probenecid Allergy Unknown Skin Verified 05/02/25 18:36 Reaction <Jolene Larsen PA-C - Last Filed: 05/02/25 18:59> Review of Systems 2 Review of Systems: All systems reviewed & are unremarkable except as noted in HPI and below <Jolene Larsen PA-C - Last Filed: 05/02/25 18:59> FOR[facility]LY [facility] Past Medical History Medical History: Medical History (Updated 05/06/25 @ 16:46 by Paola Adams MD) AVM (arteriovenous malformation) of duodenum, acquired with hemorrhage Acute on chronic anemia Melena Atherosclerosis of aorta Atrial fibrillation HTN (hypertension) Alcohol abuse Malignant neoplasm of prostate Dysphonia Chronic bilateral low back pain Encephalopathy Mixed hyperlipidemia NANDINI (acute kidney injury) Pneumonia Fluid overload Epistaxis r nares no bleeding site seen Gout, unspecified Gout CKD (chronic kidney disease) stage 4, GFR 15-29 ml/min Osteoarthrosis, localized, primary, involving lower leg Osteoarthrosis, localized, primary, involving hand Lumbar stenosis Anemia in chronic kidney disease Diabetes mellitus currently diet controlled, A1C 6.1% on 02/27/25 <Jolene Larsen PA-C - Last Filed: 05/02/25 18:59> Surgical History Surgical History: Surgical History H/O cataract extraction History of appendectomy H/O laminectomy C3-C4 [id number] History of carpal tunnel release History of repair of rotator cuff H/O arthroscopy of knee <Jolene Larsen PA-C - Last Filed: 05/02/25 18:59> Family History Family History: Family History Mother Hypertension, Onset Age: 72 Father Malignant neoplasm of prostate, Onset Age: 76 <Jolene Larsen PA-C - Last Filed: 05/02/25 18:59> Social History Social History: Social History Social History: Caffeine- coffee Smoking packs per day: 1 Smoking cigarettes per day: 20.0 Years smoked: 40 Smoking pack-years: 40.00 Smoking status: Former smoker Tobacco type: cigarettes Second hand tobacco smoke exposure: No Additional smoking assessment comments: Quit 40 years ago Alcohol intake: current Drinks per week: 10 Substance use: never Substance use type: does not use Do You Feel Safe in your Home?: Yes Lack of Transportation: No Lack of Food: Never True Current Housing: I Have Housing Concerned About Future Housing: No Difficulty Paying Gas/Electric Bills: No Difficulty Paying for Meds: No Currently Unemployed: No Education: Trade/Vocational Certificate Difficulty w/ Childcare or Family Care: No Gender identity (if verbalized by the patient): Male Spiritual care concerns: No <Jolene Larsen PA-C - Last Filed: 05/02/25 18:59> Exam 2 Narrative: GENERAL: Chronically ill-appearing, pale, and in no acute distress. HEAD: Normocephalic, atraumatic. EYES: EOMI. ENT: Nares clear, no rhinorrhea or epistaxis. Mucous membranes moist. Oropharynx without tonsillar hypertrophy exudate or other lesions. CHEST: Clear to auscultation. No respiratory distress. No wheezes rales or rhonchi HEART: Regular rate and rhythm. No murmur heard. Normal peripheral pulses. ABDOMEN: Soft, nontender, nondistended, normal active bowel sounds. G tube in place EXTREMITIES: Normal range of motion. No edema. SKIN: Warm, dry, no rash. NEURO: No focal deficits. Alert and oriented x3. PSYCH: Normal mood and affect RECTAL: Dark stool, Hemoccult positive <Jolene Larsen PA-C - Last Filed: 05/02/25 18:59> Course FURNITURE DESIGNER/PA Physician Supervision This visit was performed by both a physician and an Advanced Mathematics Improvement Teacher. I performed all aspects of the Medical Decision Making as documented. <Parvez Hall MD - Last Filed: 05/07/25 19:50> Consultations Consultation #1: Spoke with hospitalist about patient and workup who accepts admission < Jolene Larsen PA-C - Last Filed: 05/02/25 18:59> Date: 05/02/25 <Jolene Larsen PA-C - Last Filed: 05/02/25 18:59> Consultation #2: Spoke with GI who will consult <Jolene Larsen PA-C - Last Filed: 05/02/25 18:59> Date: 05/02/25 <Jolene Larsen PA-C - Last Filed: 05/02/25 18:59> Vital Signs Vital signs: Vital Signs Temperature 97.9 F 05/02/25 14:38 Pulse Rate 54 L 05/02/25 14:38 Respiratory Rate 19 05/02/25 14:38 Blood Pressure 111/54 L 05/02/25 14:38 Pulse Oximetry 100 05/02/25 14:38 Oxygen Delivery Room Air 05/02/25 14:38 Temperature 97.2 F L 05/07/25 13:56 Pulse Rate 78 05/07/25 13:56 Respiratory Rate 16 05/07/25 13:56 Blood Pressure 170/95 H 05/07/25 13:56 Pulse Oximetry 97 05/07/25 13:56 Oxygen Delivery Room Air 05/07/25 08:00 Oxygen Flow Rate 2 05/04/25 11:52 Fraction of Inspired Oxygen 21 05/04/25 08:45 <Jolene Larsen PA-C - Last Filed: 05/02/25 18:59> Vital Signs Temperature 97.9 F 05/02/25 14:38 Pulse Rate 54 L 05/02/25 14:38 Respiratory Rate 19 05/02/25 14:38 Blood Pressure 111/54 L 05/02/25 14:38 Pulse Oximetry 100 05/02/25 14:38 Oxygen Delivery Room Air 05/02/25 14:38 Temperature 97.2 F L 05/07/25 13:56 Pulse Rate 78 05/07/25 13:56 Respiratory Rate 16 05/07/25 13:56 Blood Pressure 170/95 H 05/07/25 13:56 Pulse Oximetry 97 05/07/25 13:56 Oxygen Delivery Room Air 05/07/25 08:00 Oxygen Flow Rate 2 05/04/25 11:52 Fraction of Inspired Oxygen 21 05/04/25 08:45 <Parvez Hall MD - Last Filed: 05/07/25 19:50> MDM - Recheck/Abnormal Lab/Rx MDM Narrative Medical decision making narrative: Patient presents to the ER for anemia from [facility]. Does endorse dark stools over the last 4 days. Hemoccult positive. Vitals are stable. CBC showing normocytic anemia hemoglobin of 4.6. Metabolic panel with creatinine of 3.57, BUN of 125. Patient given 80 of Protonix, transfused 2 units. Will be admitted for further management <Jolene Larsen PA-C - Last Filed: 05/02/25 18:59> Differential Diagnosis Differential diagnosis: Likely other (upper gi bleed, anemia) <Jolene Larsen PA-C - Last Filed: 05/02/25 18:59> Lab Data Attestation: I reviewed the patient's lab results. <Jolene Larsen PA-C - Last Filed: 05/02/25 18:59> Result diagrams: 05/07/25 04:54 05/07/25 04:54 <SANDRA Odell Last Filed: 05/02/25 18:59> Labs: Lab Results 05/02/25 05/02/25 05/03/25 Range/Units 14:48 22:06 00:39 WBC 10.5 H (4.5-10.0) K/mm3 RBC 1.44 L (4.6-6.20) M/mm3 Hgb 4.6 L* 6.8 L* (14.0-18.0) g/dL Hct 14.2 L* 20.5 L* (42.0-52.0) % MCV 98.6 (80-100) fl MCH 31.9 (26-34) pg MCHC 32.4 (32-36) g/dl RDW 14.9 H (11.5-14.5) % Plt Count 330 (150-375) k/mm3 MPV 11.2 H (7.4-10.4) fl Immature Gran % (Auto) 1.5 H (0-0.5) % Neut % (Auto) 76.5 H (45.5-73.1) % Lymph % (Auto) 12.5 L (18.3-44.2) % [place] % (Auto) 7.4 (2.6-8.5) % Eos % (Auto) 1.9 (0-4.4) % Baso % (Auto) 0.2 (0.2-1.2) % Lymph # (Auto) 1.31 (0.9-3.2) K/mm3 [place] # (Auto) 0.8 H (0.1-0.6) K/mm3 Eos # (Auto) 0.2 (0-0.3) K/mm3 Baso # (Auto) 0.0 (0.0-0.1) K/mm3 Abs Immat Gran (auto) 0.16 H (0.00-0.031) K/mm3 Absolute Neuts (auto) 8.0 H (1.3-6.7) K/mm3 Absolute Nucleated RBC 0.000 (0.0-0.012) K/mm3 Nucleated RBC % 0.0 (0.0-0.2) % PT 18.7 H (11.1-14.7) Seconds INR 1.6 APTT 48.0 H (22.3-36.8) Seconds Sodium 131 L (137-145) mmol/L Potassium 5.0 (3.4-5.0) mmol/L Chloride 97 L (98-107) mmol/L Carbon Dioxide 23 (22-30) mmol/L Anion Gap 11 (4-12) mmol/L BUN 125 H* (9-20) mg/dL Creatinine 3.57 H (0.7-1.3) mg/dL Estim Creat Clear Calc 11 ml/min Estimated GFR 16 L (59 - ) Glucose 142 H (65-110) mg/dL POC Capillary Glucose 139 H (65-105) mg/dl Calcium 8.7 (8.4-10.2) mg/dL Iron 73 (49-181) ug/dL TIBC 193 L (265-497) ug/dL % Saturation 38 (20-50) % Ferritin 310.00 H (11.1-264) ng/mL Total Bilirubin 0.3 (0.2-1.3) mg/dL AST 31 (17-59) U/L ALT 24 (6-50) U/L Alkaline Phosphatase 104 (38-126) U/L Total Creatine Kinase (55-170) U/L NT-Pro-B Natriuret Pep (19.9-100) pg/mL Total Protein 6.2 L (6.3-8.2) g/dL Albumin 2.9 L (3.5-5.1) g/dL Prostate Specific Ag (< OR = 4.0) ng/mL Vitamin B12 938.0 H (239-931) pg/mL Folate 6.2 (2.76->20) ng/mL TSH (Reflex) 5.010 H (0.465-4.68) uIU/mL Free T4 1.39 (0.78-2.19) ng/dL Total T3 1.01 (0.82-1.58) NG/ML U Random Total Protein mg/dL Ur Random Sodium meq/L Ur Random Urea MG/DL Urine Creatinine mg/dL Protein/Creat Ratio 2 (0-0.20) mg/mg Nasal RSV Type A (PCR) Nasal RSV Type B (PCR) Chlamy pneumoniae PCR Adenovirus (PCR) Adenovirus DNA Human Bocavirus (KESHA) B. pertussis DNA (PCR) B.parapertussis DNA PCR Coronavirus Type OC43 Coronavirus OC43 (PCR) Coronavirus Type HKU1 Coronavirus HKU1 (PCR) Coronavirus Type 229E Coronavirus 229E (PCR) Coronavirus Type NL63 Coronavirus NL63 (PCR) Human Metapneumovir PCR Influenza A (RT-PCR) (Negative) Influenza A (H1) PCR Influenza A (PCR) Influenza A (H1) RNA Influ A (H1/09) PCR Influenza A (H3) PCR Influenza Type A (PCR) Influenza B (RT-PCR) (Negative) Influenza Type B (PCR) M. pneumoniae (PCR) M. pneumoniae DNA Parainfluenza PCR Parainfluenza 1 (PCR) Parainfluenza 2 (PCR) Parainfluenza 3 (PCR) Parainfluenza 3 RNA (PCR) Parainfluenza 4 (PCR) RSV (RT-PCR) (Negative) RSV (PCR) Entero/Rhino (PCR) Rhino/Enterovirus (KESHA) SARS-CoV-2 (PCR) SARS-CoV-2 RNA (RT-PCR) (Negative) Misc Test Comment Blood Type B Negative Antibody Screen Negative Crossmatch See Detail 05/03/25 05/03/25 05/03/25 Range/Units 04:04 11:10 11:11 WBC 10.2 H (4.5-10.0) K/mm3 RBC 2.74 L (4.6-6.20) M/mm3 Hgb 8.5 L (14.0-18.0) g/dL Hct 25.6 L (42.0-52.0) % MCV 93.4 D (80-100) fl MCH 31.0 (26-34) pg MCHC 33.2 (32-36) g/dl RDW 15.9 H (11.5-14.5) % Plt Count 328 (150-375) k/mm3 MPV 11.1 H (7.4-10.4) fl Immature Gran % (Auto) 1.0 H (0-0.5) % Neut % (Auto) 72.1 (45.5-73.1) % Lymph % (Auto) 14.0 L (18.3-44.2) % [place] % (Auto) 9.9 H (2.6-8.5) % Eos % (Auto) 2.3 (0-4.4) % Baso % (Auto) 0.7 (0.2-1.2) % Lymph # (Auto) 1.42 (0.9-3.2) K/mm3 [place] # (Auto) 1.0 H (0.1-0.6) K/mm3 Eos # (Auto) 0.2 (0-0.3) K/mm3 Baso # (Auto) 0.1 (0.0-0.1) K/mm3 Abs Immat Gran (auto) 0.10 H (0.00-0.031) K/mm3 Absolute Neuts (auto) 7.3 H (1.3-6.7) K/mm3 Absolute Nucleated RBC 0.000 (0.0-0.012) K/mm3 Nucleated RBC % 0.0 (0.0-0.2) % PT (11.1-14.7) Seconds INR APTT (22.3-36.8) Seconds Sodium 132 L (137-145) mmol/L Potassium 4.9 (3.4-5.0) mmol/L Chloride 100 (98-107) mmol/L Carbon Dioxide 22 (22-30) mmol/L Anion Gap 10 (4-12) mmol/L BUN 121 H* (9-20) mg/dL Creatinine 3.51 H (0.7-1.3) mg/dL Estim Creat Clear Calc 12 ml/min Estimated GFR 17 L (59 - ) Glucose 112 H (65-110) mg/dL POC Capillary Glucose (65-105) mg/dl Calcium 8.7 (8.4-10.2) mg/dL Iron (49-181) ug/dL TIBC (265-497) ug/dL % Saturation (20-50) % Ferritin (11.1-264) ng/mL Total Bilirubin 0.7 (0.2-1.3) mg/dL AST 25 (17-59) U/L ALT 20 (6-50) U/L Alkaline Phosphatase 101 (38-126) U/L Total Creatine Kinase < 20 L (55-170) U/L NT-Pro-B Natriuret Pep 7210 H (19.9-100) pg/mL Total Protein 6.4 (6.3-8.2) g/dL Albumin 3.0 L (3.5-5.1) g/dL Prostate Specific Ag 1.9 (< OR = 4.0) ng/mL Vitamin B12 (239-931) pg/mL Folate (2.76->20) ng/mL TSH (Reflex) (0.465-4.68) uIU/mL Free T4 (0.78-2.19) ng/dL Total T3 (0.82-1.58) NG/ML U Random Total Protein mg/dL Ur Random Sodium meq/L Ur Random Urea MG/DL Urine Creatinine mg/dL Protein/Creat Ratio 2 (0-0.20) mg/mg Nasal RSV Type A (PCR) Cancelled Nasal RSV Type B (PCR) Cancelled Chlamy pneumoniae PCR Cancelled Adenovirus (PCR) Adenovirus DNA Human Bocavirus (KESHA) B. pertussis DNA (PCR) B.parapertussis DNA PCR Coronavirus Type OC43 Coronavirus OC43 (PCR) Coronavirus Type HKU1 Coronavirus HKU1 (PCR) Coronavirus Type 229E Coronavirus 229E (PCR) Coronavirus Type NL63 Coronavirus NL63 (PCR) Human Metapneumovir PCR Influenza A (RT-PCR) Negative (Negative) Influenza A (H1) PCR Influenza A (PCR) Influenza A (H1) RNA Influ A (H1/09) PCR Influenza A (H3) PCR Influenza Type A (PCR) Influenza B (RT-PCR) Negative (Negative) Influenza Type B (PCR) M. pneumoniae (PCR) M. pneumoniae DNA Parainfluenza PCR Parainfluenza 1 (PCR) Parainfluenza 2 (PCR) Parainfluenza 3 (PCR) Parainfluenza 3 RNA (PCR) Parainfluenza 4 (PCR) RSV (RT-PCR) Negative (Negative) RSV (PCR) Entero/Rhino (PCR) Rhino/Enterovirus (KESHA) SARS-CoV-2 (PCR) SARS-CoV-2 RNA (RT-PCR) Negative (Negative) Misc Test Comment Blood Type Antibody Screen Crossmatch 05/03/25 05/03/25 05/03/25 Range/Units 11:11 11:11 11:11 WBC (4.5-10.0) K/mm3 RBC (4.6-6.20) M/mm3 Hgb (14.0-18.0) g/dL Hct (42.0-52.0) % MCV (80-100) fl MCH (26-34) pg MCHC (32-36) g/dl RDW (11.5-14.5) % Plt Count (150-375) k/mm3 MPV (7.4-10.4) fl Immature Gran % (Auto) (0-0.5) % Neut % (Auto) (45.5-73.1) % Lymph % (Auto) (18.3-44.2) % [place] % (Auto) (2.6-8.5) % Eos % (Auto) (0-4.4) % Baso % (Auto) (0.2-1.2) % Lymph # (Auto) (0.9-3.2) K/mm3 [place] # (Auto) (0.1-0.6) K/mm3 Eos # (Auto) (0-0.3) K/mm3 Baso # (Auto) (0.0-0.1) K/mm3 Abs Immat Gran (auto) (0.00-0.031) K/mm3 Absolute Neuts (auto) (1.3-6.7) K/mm3 Absolute Nucleated RBC (0.0-0.012) K/mm3 Nucleated RBC % (0.0-0.2) % PT (11.1-14.7) Seconds INR APTT (22.3-36.8) Seconds Sodium (137-145) mmol/L Potassium (3.4-5.0) mmol/L Chloride (98-107) mmol/L Carbon Dioxide (22-30) mmol/L Anion Gap (4-12) mmol/L BUN (9-20) mg/dL Creatinine (0.7-1.3) mg/dL Estim Creat Clear Calc ml/min Estimated GFR (59 - ) Glucose (65-110) mg/dL POC Capillary Glucose (65-105) mg/dl Calcium (8.4-10.2) mg/dL Iron (49-181) ug/dL TIBC (265-497) ug/dL % Saturation (20-50) % Ferritin (11.1-264) ng/mL Total Bilirubin (0.2-1.3) mg/dL AST (17-59) U/L ALT (6-50) U/L Alkaline Phosphatase (38-126) U/L Total Creatine Kinase (55-170) U/L NT-Pro-B Natriuret Pep (19.9-100) pg/mL Total Protein (6.3-8.2) g/dL Albumin (3.5-5.1) g/dL Prostate Specific Ag (< OR = 4.0) ng/mL Vitamin B12 (239-931) pg/mL Folate (2.76->20) ng/mL TSH (Reflex) (0.465-4.68) uIU/mL Free T4 (0.78-2.19) ng/dL Total T3 (0.82-1.58) NG/ML U Random Total Protein mg/dL Ur Random Sodium meq/L Ur Random Urea MG/DL Urine Creatinine mg/dL Protein/Creat Ratio 2 (0-0.20) mg/mg Nasal RSV Type A (PCR) Nasal RSV Type B (PCR) Chlamy pneumoniae PCR Pending Adenovirus (PCR) Pending Adenovirus DNA Cancelled Human Bocavirus (KESHA) Cancelled B. pertussis DNA (PCR) Pending B.parapertussis DNA PCR Pending Coronavirus Type OC43 Cancelled Coronavirus OC43 (PCR) Pending Coronavirus Type HKU1 Cancelled Coronavirus HKU1 (PCR) Pending Coronavirus Type 229E Cancelled Coronavirus 229E (PCR) Pending Coronavirus Type NL63 Cancelled Coronavirus NL63 (PCR) Pending Human Metapneumovir PCR Cancelled Pending Influenza A (RT-PCR) (Negative) Influenza A (H1) PCR Pending Influenza A (PCR) Cancelled Influenza A (H1) RNA Cancelled Influ A (H1/09) PCR Pending Influenza A (H3) PCR Cancelled Pending Influenza Type A (PCR) Pending Influenza B (RT-PCR) (Negative) Influenza Type B (PCR) Pending M. pneumoniae (PCR) Pending M. pneumoniae DNA Cancelled Parainfluenza PCR Cancelled Parainfluenza 1 (PCR) Pending Parainfluenza 2 (PCR) Cancelled Parainfluenza 3 (PCR) Parainfluenza 3 RNA (PCR) Parainfluenza 4 (PCR) RSV (RT-PCR) (Negative) RSV (PCR) Entero/Rhino (PCR) Rhino/Enterovirus (KESHA) SARS-CoV-2 (PCR) SARS-CoV-2 RNA (RT-PCR) (Negative) Misc Test Comment Blood Type Antibody Screen Crossmatch 05/03/25 05/03/25 05/03/25 Range/Units 11:11 11:11 11:12 WBC (4.5-10.0) K/mm3 RBC (4.6-6.20) M/mm3 Hgb (14.0-18.0) g/dL Hct (42.0-52.0) % MCV (80-100) fl MCH (26-34) pg MCHC (32-36) g/dl RDW (11.5-14.5) % Plt Count (150-375) k/mm3 MPV (7.4-10.4) fl Immature Gran % (Auto) (0-0.5) % Neut % (Auto) (45.5-73.1) % Lymph % (Auto) (18.3-44.2) % [place] % (Auto) (2.6-8.5) % Eos % (Auto) (0-4.4) % Baso % (Auto) (0.2-1.2) % Lymph # (Auto) (0.9-3.2) K/mm3 [place] # (Auto) (0.1-0.6) K/mm3 Eos # (Auto) (0-0.3) K/mm3 Baso # (Auto) (0.0-0.1) K/mm3 Abs Immat Gran (auto) (0.00-0.031) K/mm3 Absolute Neuts (auto) (1.3-6.7) K/mm3 Absolute Nucleated RBC (0.0-0.012) K/mm3 Nucleated RBC % (0.0-0.2) % PT (11.1-14.7) Seconds INR APTT (22.3-36.8) Seconds Sodium (137-145) mmol/L Potassium (3.4-5.0) mmol/L Chloride (98-107) mmol/L Carbon Dioxide (22-30) mmol/L Anion Gap (4-12) mmol/L BUN (9-20) mg/dL Creatinine (0.7-1.3) mg/dL Estim Creat Clear Calc ml/min Estimated GFR (59 - ) Glucose (65-110) mg/dL POC Capillary Glucose (65-105) mg/dl Calcium (8.4-10.2) mg/dL Iron (49-181) ug/dL TIBC (265-497) ug/dL % Saturation (20-50) % Ferritin (11.1-264) ng/mL Total Bilirubin (0.2-1.3) mg/dL AST (17-59) U/L ALT (6-50) U/L Alkaline Phosphatase (38-126) U/L Total Creatine Kinase (55-170) U/L NT-Pro-B Natriuret Pep (19.9-100) pg/mL Total Protein (6.3-8.2) g/dL Albumin (3.5-5.1) g/dL Prostate Specific Ag (< OR = 4.0) ng/mL Vitamin B12 (239-931) pg/mL Folate (2.76->20) ng/mL TSH (Reflex) (0.465-4.68) uIU/mL Free T4 (0.78-2.19) ng/dL Total T3 (0.82-1.58) NG/ML U Random Total Protein 185 mg/dL Ur Random Sodium 19 meq/L Ur Random Urea 713 MG/DL Urine Creatinine 44.0 mg/dL Protein/Creat Ratio 2 4.20 H (0-0.20) mg/mg Nasal RSV Type A (PCR) Nasal RSV Type B (PCR) Chlamy pneumoniae PCR Adenovirus (PCR) Adenovirus DNA Human Bocavirus (KESHA) B. pertussis DNA (PCR) B.parapertussis DNA PCR Coronavirus Type OC43 Coronavirus OC43 (PCR) Coronavirus Type HKU1 Coronavirus HKU1 (PCR) Coronavirus Type 229E Coronavirus 229E (PCR) Coronavirus Type NL63 Coronavirus NL63 (PCR) Human Metapneumovir PCR Influenza A (RT-PCR) (Negative) Influenza A (H1) PCR Influenza A (PCR) Influenza A (H1) RNA Influ A () PCR Influenza A (H3) PCR Influenza Type A (PCR) Influenza B (RT-PCR) (Negative) Influenza Type B (PCR) Cancelled M. pneumoniae (PCR) M. pneumoniae DNA Parainfluenza PCR Parainfluenza 1 (PCR) Parainfluenza 2 (PCR) Pending Parainfluenza 3 (PCR) Pending Parainfluenza 3 RNA (PCR) Cancelled Parainfluenza 4 (PCR) Cancelled Pending RSV (RT-PCR) (Negative) RSV (PCR) Pending Entero/Rhino (PCR) Pending Rhino/Enterovirus (KESHA) Cancelled SARS-CoV-2 (PCR) Pending SARS-CoV-2 RNA (RT-PCR) Cancelled (Negative) Misc Test Comment Cancelled Blood Type Antibody Screen Crossmatch 05/03/25 Range/Units 11:30 WBC (4.5-10.0) K/mm3 RBC (4.6-6.20) M/mm3 Hgb (14.0-18.0) g/dL Hct (42.0-52.0) % MCV (80-100) fl MCH (26-34) pg MCHC (32-36) g/dl RDW (11.5-14.5) % Plt Count (150-375) k/mm3 MPV (7.4-10.4) fl Immature Gran % (Auto) (0-0.5) % Neut % (Auto) (45.5-73.1) % Lymph % (Auto) (18.3-44.2) % [place] % (Auto) (2.6-8.5) % Eos % (Auto) (0-4.4) % Baso % (Auto) (0.2-1.2) % Lymph # (Auto) (0.9-3.2) K/mm3 [place] # (Auto) (0.1-0.6) K/mm3 Eos # (Auto) (0-0.3) K/mm3 Baso # (Auto) (0.0-0.1) K/mm3 Abs Immat Gran (auto) (0.00-0.031) K/mm3 Absolute Neuts (auto) (1.3-6.7) K/mm3 Absolute Nucleated RBC (0.0-0.012) K/mm3 Nucleated RBC % (0.0-0.2) % PT (11.1-14.7) Seconds INR APTT (22.3-36.8) Seconds Sodium (137-145) mmol/L Potassium (3.4-5.0) mmol/L Chloride (98-107) mmol/L Carbon Dioxide (22-30) mmol/L Anion Gap (4-12) mmol/L BUN (9-20) mg/dL Creatinine (0.7-1.3) mg/dL Estim Creat Clear Calc ml/min Estimated GFR (59 - ) Glucose (65-110) mg/dL POC Capillary Glucose 149 H (65-105) mg/dl Calcium (8.4-10.2) mg/dL Iron (49-181) ug/dL TIBC (265-497) ug/dL % Saturation (20-50) % Ferritin (11.1-264) ng/mL Total Bilirubin (0.2-1.3) mg/dL AST (17-59) U/L ALT (6-50) U/L Alkaline Phosphatase (38-126) U/L Total Creatine Kinase (55-170) U/L NT-Pro-B Natriuret Pep (19.9-100) pg/mL Total Protein (6.3-8.2) g/dL Albumin (3.5-5.1) g/dL Prostate Specific Ag (< OR = 4.0) ng/mL Vitamin B12 (239-931) pg/mL Folate (2.76->20) ng/mL TSH (Reflex) (0.465-4.68) uIU/mL Free T4 (0.78-2.19) ng/dL Total T3 (0.82-1.58) NG/ML U Random Total Protein mg/dL Ur Random Sodium meq/L Ur Random Urea MG/DL Urine Creatinine mg/dL Protein/Creat Ratio 2 (0-0.20) mg/mg Nasal RSV Type A (PCR) Nasal RSV Type B (PCR) Chlamy pneumoniae PCR Adenovirus (PCR) Adenovirus DNA Human Bocavirus (KESHA) B. pertussis DNA (PCR) B.parapertussis DNA PCR Coronavirus Type OC43 Coronavirus OC43 (PCR) Coronavirus Type HKU1 Coronavirus HKU1 (PCR) Coronavirus Type 229E Coronavirus 229E (PCR) Coronavirus Type NL63 Coronavirus NL63 (PCR) Human Metapneumovir PCR Influenza A (RT-PCR) (Negative) Influenza A (H1) PCR Influenza A (PCR) Influenza A (H1) RNA Influ A () PCR Influenza A (H3) PCR Influenza Type A (PCR) Influenza B (RT-PCR) (Negative) Influenza Type B (PCR) M. pneumoniae (PCR) M. pneumoniae DNA Parainfluenza PCR Parainfluenza 1 (PCR) Parainfluenza 2 (PCR) Parainfluenza 3 (PCR) Parainfluenza 3 RNA (PCR) Parainfluenza 4 (PCR) RSV (RT-PCR) (Negative) RSV (PCR) Entero/Rhino (PCR) Rhino/Enterovirus (KESHA) SARS-CoV-2 (PCR) SARS-CoV-2 RNA (RT-PCR) (Negative) Misc Test Comment Blood Type Antibody Screen Crossmatch <Jolene Larsen PA-C - Last Filed: 05/02/25 18:59> Lab Results 05/02/25 05/02/25 05/03/25 Range/Units 14:48 22:06 00:39 WBC 10.5 H (4.5-10.0) K/mm3 RBC 1.44 L (4.6-6.20) M/mm3 Hgb 4.6 L* 6.8 L* (14.0-18.0) g/dL Hct 14.2 L* 20.5 L* (42.0-52.0) % MCV 98.6 (80-100) fl MCH 31.9 (26-34) pg MCHC 32.4 (32-36) g/dl RDW 14.9 H (11.5-14.5) % Plt Count 330 (150-375) k/mm3 MPV 11.2 H (7.4-10.4) fl Immature Gran % (Auto) 1.5 H (0-0.5) % Neut % (Auto) 76.5 H (45.5-73.1) % Lymph % (Auto) 12.5 L (18.3-44.2) % [place] % (Auto) 7.4 (2.6-8.5) % Eos % (Auto) 1.9 (0-4.4) % Baso % (Auto) 0.2 (0.2-1.2) % Lymph # (Auto) 1.31 (0.9-3.2) K/mm3 [place] # (Auto) 0.8 H (0.1-0.6) K/mm3 Eos # (Auto) 0.2 (0-0.3) K/mm3 Baso # (Auto) 0.0 (0.0-0.1) K/mm3 Abs Immat Gran (auto) 0.16 H (0.00-0.031) K/mm3 Absolute Neuts (auto) 8.0 H (1.3-6.7) K/mm3 Absolute Nucleated RBC 0.000 (0.0-0.012) K/mm3 Nucleated RBC % 0.0 (0.0-0.2) % PT 18.7 H (11.1-14.7) Seconds INR 1.6 APTT 48.0 H (22.3-36.8) Seconds Sodium 131 L (137-145) mmol/L Potassium 5.0 (3.4-5.0) mmol/L Chloride 97 L (98-107) mmol/L Carbon Dioxide 23 (22-30) mmol/L Anion Gap 11 (4-12) mmol/L BUN 125 H* (9-20) mg/dL Creatinine 3.57 H (0.7-1.3) mg/dL Estim Creat Clear Calc 11 ml/min Estimated GFR 16 L (59 - ) Glucose 142 H (65-110) mg/dL POC Capillary Glucose 139 H (65-105) mg/dl Calcium 8.7 (8.4-10.2) mg/dL Iron 73 (49-181) ug/dL TIBC 193 L (265-497) ug/dL % Saturation 38 (20-50) % Ferritin 310.00 H (11.1-264) ng/mL Total Bilirubin 0.3 (0.2-1.3) mg/dL AST 31 (17-59) U/L ALT 24 (6-50) U/L Alkaline Phosphatase 104 (38-126) U/L Total Creatine Kinase (55-170) U/L NT-Pro-B Natriuret Pep (19.9-100) pg/mL Total Protein 6.2 L (6.3-8.2) g/dL Albumin 2.9 L (3.5-5.1) g/dL Prostate Specific Ag (< OR = 4.0) ng/mL Vitamin B12 938.0 H (239-931) pg/mL Folate 6.2 (2.76->20) ng/mL TSH (Reflex) 5.010 H (0.465-4.68) uIU/mL Free T4 1.39 (0.78-2.19) ng/dL Total T3 1.01 (0.82-1.58) NG/ML U Random Total Protein mg/dL Ur Random Sodium meq/L Ur Random Urea MG/DL Urine Creatinine mg/dL Protein/Creat Ratio 2 (0-0.20) mg/mg Nasal RSV Type A (PCR) Nasal RSV Type B (PCR) Chlamy pneumoniae PCR Adenovirus (PCR) Adenovirus DNA Human Bocavirus (KESHA) B. pertussis DNA (PCR) B.parapertussis DNA PCR Coronavirus Type OC43 Coronavirus OC43 (PCR) Coronavirus Type HKU1 Coronavirus HKU1 (PCR) Coronavirus Type 229E Coronavirus 229E (PCR) Coronavirus Type NL63 Coronavirus NL63 (PCR) Human Metapneumovir PCR Influenza A (RT-PCR) (Negative) Influenza A (H1) PCR Influenza A (PCR) Influenza A (H1) RNA Influ A (H1/09) PCR Influenza A (H3) PCR Influenza Type A (PCR) Influenza B (RT-PCR) (Negative) Influenza Type B (PCR) M. pneumoniae (PCR) M. pneumoniae DNA Parainfluenza PCR Parainfluenza 1 (PCR) Parainfluenza 2 (PCR) Parainfluenza 3 (PCR) Parainfluenza 3 RNA (PCR) Parainfluenza 4 (PCR) RSV (RT-PCR) (Negative) RSV (PCR) Entero/Rhino (PCR) Rhino/Enterovirus (KESHA) SARS-CoV-2 (PCR) SARS-CoV-2 RNA (RT-PCR) (Negative) Misc Test Comment Blood Type B Negative Antibody Screen Negative Crossmatch See Detail 05/03/25 05/03/25 05/03/25 Range/Units 04:04 11:10 11:11 WBC 10.2 H (4.5-10.0) K/mm3 RBC 2.74 L (4.6-6.20) M/mm3 Hgb 8.5 L (14.0-18.0) g/dL Hct 25.6 L (42.0-52.0) % MCV 93.4 D (80-100) fl MCH 31.0 (26-34) pg MCHC 33.2 (32-36) g/dl RDW 15.9 H (11.5-14.5) % Plt Count 328 (150-375) k/mm3 MPV 11.1 H (7.4-10.4) fl Immature Gran % (Auto) 1.0 H (0-0.5) % Neut % (Auto) 72.1 (45.5-73.1) % Lymph % (Auto) 14.0 L (18.3-44.2) % [place] % (Auto) 9.9 H (2.6-8.5) % Eos % (Auto) 2.3 (0-4.4) % Baso % (Auto) 0.7 (0.2-1.2) % Lymph # (Auto) 1.42 (0.9-3.2) K/mm3 [place] # (Auto) 1.0 H (0.1-0.6) K/mm3 Eos # (Auto) 0.2 (0-0.3) K/mm3 Baso # (Auto) 0.1 (0.0-0.1) K/mm3 Abs Immat Gran (auto) 0.10 H (0.00-0.031) K/mm3 Absolute Neuts (auto) 7.3 H (1.3-6.7) K/mm3 Absolute Nucleated RBC 0.000 (0.0-0.012) K/mm3 Nucleated RBC % 0.0 (0.0-0.2) % PT (11.1-14.7) Seconds INR APTT (22.3-36.8) Seconds Sodium 132 L (137-145) mmol/L Potassium 4.9 (3.4-5.0) mmol/L Chloride 100 (98-107) mmol/L Carbon Dioxide 22 (22-30) mmol/L Anion Gap 10 (4-12) mmol/L BUN 121 H* (9-20) mg/dL Creatinine 3.51 H (0.7-1.3) mg/dL Estim Creat Clear Calc 12 ml/min Estimated GFR 17 L (59 - ) Glucose 112 H (65-110) mg/dL POC Capillary Glucose (65-105) mg/dl Calcium 8.7 (8.4-10.2) mg/dL Iron (49-181) ug/dL TIBC (265-497) ug/dL % Saturation (20-50) % Ferritin (11.1-264) ng/mL Total Bilirubin 0.7 (0.2-1.3) mg/dL AST 25 (17-59) U/L ALT 20 (6-50) U/L Alkaline Phosphatase 101 (38-126) U/L Total Creatine Kinase < 20 L (55-170) U/L NT-Pro-B Natriuret Pep 7210 H (19.9-100) pg/mL Total Protein 6.4 (6.3-8.2) g/dL Albumin 3.0 L (3.5-5.1) g/dL Prostate Specific Ag 1.9 (< OR = 4.0) ng/mL Vitamin B12 (239-931) pg/mL Folate (2.76->20) ng/mL TSH (Reflex) (0.465-4.68) uIU/mL Free T4 (0.78-2.19) ng/dL Total T3 (0.82-1.58) NG/ML U Random Total Protein mg/dL Ur Random Sodium meq/L Ur Random Urea MG/DL Urine Creatinine mg/dL Protein/Creat Ratio 2 (0-0.20) mg/mg Nasal RSV Type A (PCR) Cancelled Nasal RSV Type B (PCR) Cancelled Chlamy pneumoniae PCR Cancelled Adenovirus (PCR) Adenovirus DNA Human Bocavirus (KESHA) B. pertussis DNA (PCR) B.parapertussis DNA PCR Coronavirus Type OC43 Coronavirus OC43 (PCR) Coronavirus Type HKU1 Coronavirus HKU1 (PCR) Coronavirus Type 229E Coronavirus 229E (PCR) Coronavirus Type NL63 Coronavirus NL63 (PCR) Human Metapneumovir PCR Influenza A (RT-PCR) Negative (Negative) Influenza A (H1) PCR Influenza A (PCR) Influenza A (H1) RNA Influ A (H1/09) PCR Influenza A (H3) PCR Influenza Type A (PCR) Influenza B (RT-PCR) Negative (Negative) Influenza Type B (PCR) M. pneumoniae (PCR) M. pneumoniae DNA Parainfluenza PCR Parainfluenza 1 (PCR) Parainfluenza 2 (PCR) Parainfluenza 3 (PCR) Parainfluenza 3 RNA (PCR) Parainfluenza 4 (PCR) RSV (RT-PCR) Negative (Negative) RSV (PCR) Entero/Rhino (PCR) Rhino/Enterovirus (KESHA) SARS-CoV-2 (PCR) SARS-CoV-2 RNA (RT-PCR) Negative (Negative) Misc Test Comment Blood Type Antibody Screen Crossmatch 05/03/25 05/03/25 05/03/25 Range/Units 11:11 11:11 11:11 WBC (4.5-10.0) K/mm3 RBC (4.6-6.20) M/mm3 Hgb (14.0-18.0) g/dL Hct (42.0-52.0) % MCV (80-100) fl MCH (26-34) pg MCHC (32-36) g/dl RDW (11.5-14.5) % Plt Count (150-375) k/mm3 MPV (7.4-10.4) fl Immature Gran % (Auto) (0-0.5) % Neut % (Auto) (45.5-73.1) % Lymph % (Auto) (18.3-44.2) % [place] % (Auto) (2.6-8.5) % Eos % (Auto) (0-4.4) % Baso % (Auto) (0.2-1.2) % Lymph # (Auto) (0.9-3.2) K/mm3 [place] # (Auto) (0.1-0.6) K/mm3 Eos # (Auto) (0-0.3) K/mm3 Baso # (Auto) (0.0-0.1) K/mm3 Abs Immat Gran (auto) (0.00-0.031) K/mm3 Absolute Neuts (auto) (1.3-6.7) K/mm3 Absolute Nucleated RBC (0.0-0.012) K/mm3 Nucleated RBC % (0.0-0.2) % PT (11.1-14.7) Seconds INR APTT (22.3-36.8) Seconds Sodium (137-145) mmol/L Potassium (3.4-5.0) mmol/L Chloride (98-107) mmol/L Carbon Dioxide (22-30) mmol/L Anion Gap (4-12) mmol/L BUN (9-20) mg/dL Creatinine (0.7-1.3) mg/dL Estim Creat Clear Calc ml/min Estimated GFR (59 - ) Glucose (65-110) mg/dL POC Capillary Glucose (65-105) mg/dl Calcium (8.4-10.2) mg/dL Iron (49-181) ug/dL TIBC (265-497) ug/dL % Saturation (20-50) % Ferritin (11.1-264) ng/mL Total Bilirubin (0.2-1.3) mg/dL AST (17-59) U/L ALT (6-50) U/L Alkaline Phosphatase (38-126) U/L Total Creatine Kinase (55-170) U/L NT-Pro-B Natriuret Pep (19.9-100) pg/mL Total Protein (6.3-8.2) g/dL Albumin (3.5-5.1) g/dL Prostate Specific Ag (< OR = 4.0) ng/mL Vitamin B12 (239-931) pg/mL Folate (2.76->20) ng/mL TSH (Reflex) (0.465-4.68) uIU/mL Free T4 (0.78-2.19) ng/dL Total T3 (0.82-1.58) NG/ML U Random Total Protein mg/dL Ur Random Sodium meq/L Ur Random Urea MG/DL Urine Creatinine mg/dL Protein/Creat Ratio 2 (0-0.20) mg/mg Nasal RSV Type A (PCR) Nasal RSV Type B (PCR) Chlamy pneumoniae PCR Pending Adenovirus (PCR) Pending Adenovirus DNA Cancelled Human Bocavirus (KESHA) Cancelled B. pertussis DNA (PCR) Pending B.parapertussis DNA PCR Pending Coronavirus Type OC43 Cancelled Coronavirus OC43 (PCR) Pending Coronavirus Type HKU1 Cancelled Coronavirus HKU1 (PCR) Pending Coronavirus Type 229E Cancelled Coronavirus 229E (PCR) Pending Coronavirus Type NL63 Cancelled Coronavirus NL63 (PCR) Pending Human Metapneumovir PCR Cancelled Pending Influenza A (RT-PCR) (Negative) Influenza A (H1) PCR Pending Influenza A (PCR) Cancelled Influenza A (H1) RNA Cancelled Influ A (H1/) PCR Pending Influenza A (H3) PCR Cancelled Pending Influenza Type A (PCR) Pending Influenza B (RT-PCR) (Negative) Influenza Type B (PCR) Pending M. pneumoniae (PCR) Pending M. pneumoniae DNA Cancelled Parainfluenza PCR Cancelled Parainfluenza 1 (PCR) Pending Parainfluenza 2 (PCR) Cancelled Parainfluenza 3 (PCR) Parainfluenza 3 RNA (PCR) Parainfluenza 4 (PCR) RSV (RT-PCR) (Negative) RSV (PCR) Entero/Rhino (PCR) Rhino/Enterovirus (KESHA) SARS-CoV-2 (PCR) SARS-CoV-2 RNA (RT-PCR) (Negative) Misc Test Comment Blood Type Antibody Screen Crossmatch 05/03/25 05/03/25 05/03/25 Range/Units 11:11 11:11 11:12 WBC (4.5-10.0) K/mm3 RBC (4.6-6.20) M/mm3 Hgb (14.0-18.0) g/dL Hct (42.0-52.0) % MCV (80-100) fl MCH (26-34) pg MCHC (32-36) g/dl RDW (11.5-14.5) % Plt Count (150-375) k/mm3 MPV (7.4-10.4) fl Immature Gran % (Auto) (0-0.5) % Neut % (Auto) (45.5-73.1) % Lymph % (Auto) (18.3-44.2) % [place] % (Auto) (2.6-8.5) % Eos % (Auto) (0-4.4) % Baso % (Auto) (0.2-1.2) % Lymph # (Auto) (0.9-3.2) K/mm3 [place] # (Auto) (0.1-0.6) K/mm3 Eos # (Auto) (0-0.3) K/mm3 Baso # (Auto) (0.0-0.1) K/mm3 Abs Immat Gran (auto) (0.00-0.031) K/mm3 Absolute Neuts (auto) (1.3-6.7) K/mm3 Absolute Nucleated RBC (0.0-0.012) K/mm3 Nucleated RBC % (0.0-0.2) % PT (11.1-14.7) Seconds INR APTT (22.3-36.8) Seconds Sodium (137-145) mmol/L Potassium (3.4-5.0) mmol/L Chloride (98-107) mmol/L Carbon Dioxide (22-30) mmol/L Anion Gap (4-12) mmol/L BUN (9-20) mg/dL Creatinine (0.7-1.3) mg/dL Estim Creat Clear Calc ml/min Estimated GFR (59 - ) Glucose (65-110) mg/dL POC Capillary Glucose (65-105) mg/dl Calcium (8.4-10.2) mg/dL Iron (49-181) ug/dL TIBC (265-497) ug/dL % Saturation (20-50) % Ferritin (11.1-264) ng/mL Total Bilirubin (0.2-1.3) mg/dL AST (17-59) U/L ALT (6-50) U/L Alkaline Phosphatase (38-126) U/L Total Creatine Kinase (55-170) U/L NT-Pro-B Natriuret Pep (19.9-100) pg/mL Total Protein (6.3-8.2) g/dL Albumin (3.5-5.1) g/dL Prostate Specific Ag (< OR = 4.0) ng/mL Vitamin B12 (239-931) pg/mL Folate (2.76->20) ng/mL TSH (Reflex) (0.465-4.68) uIU/mL Free T4 (0.78-2.19) ng/dL Total T3 (0.82-1.58) NG/ML U Random Total Protein 185 mg/dL Ur Random Sodium 19 meq/L Ur Random Urea 713 MG/DL Urine Creatinine 44.0 mg/dL Protein/Creat Ratio 2 4.20 H (0-0.20) mg/mg Nasal RSV Type A (PCR) Nasal RSV Type B (PCR) Chlamy pneumoniae PCR Adenovirus (PCR) Adenovirus DNA Human Bocavirus (KESHA) B. pertussis DNA (PCR) B.parapertussis DNA PCR Coronavirus Type OC43 Coronavirus OC43 (PCR) Coronavirus Type HKU1 Coronavirus HKU1 (PCR) Coronavirus Type 229E Coronavirus 229E (PCR) Coronavirus Type NL63 Coronavirus NL63 (PCR) Human Metapneumovir PCR Influenza A (RT-PCR) (Negative) Influenza A (H1) PCR Influenza A (PCR) Influenza A (H1) RNA Influ A (H1/09) PCR Influenza A (H3) PCR Influenza Type A (PCR) Influenza B (RT-PCR) (Negative) Influenza Type B (PCR) Cancelled M. pneumoniae (PCR) M. pneumoniae DNA Parainfluenza PCR Parainfluenza 1 (PCR) Parainfluenza 2 (PCR) Pending Parainfluenza 3 (PCR) Pending Parainfluenza 3 RNA (PCR) Cancelled Parainfluenza 4 (PCR) Cancelled Pending RSV (RT-PCR) (Negative) RSV (PCR) Pending Entero/Rhino (PCR) Pending Rhino/Enterovirus (KESHA) Cancelled SARS-CoV-2 (PCR) Pending SARS-CoV-2 RNA (RT-PCR) Cancelled (Negative) Misc Test Comment Cancelled Blood Type Antibody Screen Crossmatch 05/03/25 Range/Units 11:30 WBC (4.5-10.0) K/mm3 RBC (4.6-6.20) M/mm3 Hgb (14.0-18.0) g/dL Hct (42.0-52.0) % MCV (80-100) fl MCH (26-34) pg MCHC (32-36) g/dl RDW (11.5-14.5) % Plt Count (150-375) k/mm3 MPV (7.4-10.4) fl Immature Gran % (Auto) (0-0.5) % Neut % (Auto) (45.5-73.1) % Lymph % (Auto) (18.3-44.2) % [place] % (Auto) (2.6-8.5) % Eos % (Auto) (0-4.4) % Baso % (Auto) (0.2-1.2) % Lymph # (Auto) (0.9-3.2) K/mm3 [place] # (Auto) (0.1-0.6) K/mm3 Eos # (Auto) (0-0.3) K/mm3 Baso # (Auto) (0.0-0.1) K/mm3 Abs Immat Gran (auto) (0.00-0.031) K/mm3 Absolute Neuts (auto) (1.3-6.7) K/mm3 Absolute Nucleated RBC (0.0-0.012) K/mm3 Nucleated RBC % (0.0-0.2) % PT (11.1-14.7) Seconds INR APTT (22.3-36.8) Seconds Sodium (137-145) mmol/L Potassium (3.4-5.0) mmol/L Chloride (98-107) mmol/L Carbon Dioxide (22-30) mmol/L Anion Gap (4-12) mmol/L BUN (9-20) mg/dL Creatinine (0.7-1.3) mg/dL Estim Creat Clear Calc ml/min Estimated GFR (59 - ) Glucose (65-110) mg/dL POC Capillary Glucose 149 H (65-105) mg/dl Calcium (8.4-10.2) mg/dL Iron (49-181) ug/dL TIBC (265-497) ug/dL % Saturation (20-50) % Ferritin (11.1-264) ng/mL Total Bilirubin (0.2-1.3) mg/dL AST (17-59) U/L ALT (6-50) U/L Alkaline Phosphatase (38-126) U/L Total Creatine Kinase (55-170) U/L NT-Pro-B Natriuret Pep (19.9-100) pg/mL Total Protein (6.3-8.2) g/dL Albumin (3.5-5.1) g/dL Prostate Specific Ag (< OR = 4.0) ng/mL Vitamin B12 (239-931) pg/mL Folate (2.76->20) ng/mL TSH (Reflex) (0.465-4.68) uIU/mL Free T4 (0.78-2.19) ng/dL Total T3 (0.82-1.58) NG/ML U Random Total Protein mg/dL Ur Random Sodium meq/L Ur Random Urea MG/DL Urine Creatinine mg/dL Protein/Creat Ratio 2 (0-0.20) mg/mg Nasal RSV Type A (PCR) Nasal RSV Type B (PCR) Chlamy pneumoniae PCR Adenovirus (PCR) Adenovirus DNA Human Bocavirus (KESHA) B. pertussis DNA (PCR) B.parapertussis DNA PCR Coronavirus Type OC43 Coronavirus OC43 (PCR) Coronavirus Type HKU1 Coronavirus HKU1 (PCR) Coronavirus Type 229E Coronavirus 229E (PCR) Coronavirus Type NL63 Coronavirus NL63 (PCR) Human Metapneumovir PCR Influenza A (RT-PCR) (Negative) Influenza A (H1) PCR Influenza A (PCR) Influenza A (H1) RNA Influ A (H1/09) PCR Influenza A (H3) PCR Influenza Type A (PCR) Influenza B (RT-PCR) (Negative) Influenza Type B (PCR) M. pneumoniae (PCR) M. pneumoniae DNA Parainfluenza PCR Parainfluenza 1 (PCR) Parainfluenza 2 (PCR) Parainfluenza 3 (PCR) Parainfluenza 3 RNA (PCR) Parainfluenza 4 (PCR) RSV (RT-PCR) (Negative) RSV (PCR) Entero/Rhino (PCR) Rhino/Enterovirus (KESHA) SARS-CoV-2 (PCR) SARS-CoV-2 RNA (RT-PCR) (Negative) Misc Test Comment Blood Type Antibody Screen Crossmatch <Parvez Hall MD - Last Filed: 05/07/25 19:50> Critical Care Time Critical Care Time Critical Care Time: Yes <Jolene Larsen PA-C - Last Filed: 05/02/25 18:59> Total Critical Care Time: 35 <Jolene Larsen PA-C - Last Filed: 05/02/25 18:59> Discharge Plan Discharge Clinical Impression: Anemia Qualifiers: Anemia type: unspecified type Qualified Code(s): D64.9 - Anemia, unspecified GI bleed Qualifiers: GI bleed type/associated pathology: melena Qualified Code(s): K92.1 - Melena <Jolene Larsen PA-C - Last Filed: 05/02/25 18:59> Patient Disposition: Still a Patient <SANDRA Odell Last Filed: 05/02/25 18:59> Condition: Guarded Prognosis <SANDRA Odell Last Filed: 05/02/25 18:59>
[2025-05-02] MEDS: PANTOPRAZOLE SODIUM IV 40 MG VIAL 80 MG IV PUSH (15:56)
[2025-05-02] MEDS: TUBING, BLOOD SET 1 EACH XX (17:17)
[2025-05-02] MEDS: SODIUM CHLORIDE 0.9% IV 250 ML 30 ML IV CONT (17:17)
--- NOTE | 2025-05-02 18:10 | ADMGEN ---
This patient, Shantanu Burleson, was admitted to IMU Room 207-01 @ 1810. Patient/family oriented to hospital policies and general routines including ID bracelet, bed and alarms, visiting hours, pain management, procedures, bathroom and other care routines, personal items, smoking policy, room service/diet, and visiting hours. Information on how to activate the Rapid Response Team has been discussed. Patient/Family are encouraged to report perceived risks to care and to ask questions if they do not understand what they are told or what they should do.
--- NOTE | 2025-05-02 19:36 | P.HP_ITS ---
H&P: HPI History of Present Illness Date/Time: 05/02/25 19:36 Chief Complaint: Abnormal Lab, Bradycardia Narrative: 84 y/o M with PMH of alcohol abuse, hypertension, prostate cancer, hyperlipidemia, gout, CKD stage IV, seizures, dysphagia S/P peg placement, atrial fibrillation on anticoagulation, anemia of chronic disease, and type 2 diabetes presents here with anemia and bradycardia. The patient presents here from [facility] via EMS on 05/02 for further evaluation of low hemoglobin and bradycardia. Patient currently at [facility] after a recent admission at [facility] from 04/12/25 to 04/24/25. Seen at that time for altered mental status/new onset seizure disorder. Seizure suspected to be related to alcohol use or withdrawal, started on Keppra 750 mg twice daily. Patient additionally sustained a type 2 odontoid fracture for which he saw neuro surgery and was placed in an [place] collar, follow-up with their service in 6 weeks and discharged to [facility] for PT/OT. Patient also failed MBS on 04/17 for which a PEG tube was placed on 04/20 and he was started on tube feeds, strict NPO, and to continue speech therapy at [facility]. Patient also developed new AFib during this admission for which he was restarted on labetalol for concurrent hypertension and he was started on anticoagulation, Eliquis. Additionally treated for CAP for which he did not require supplemental oxygen. Has since been at [facility] and has had un unremarkable recovery up to today when his Hgb was found to be 5.2, verified via repeat (4.8). Patient also noted to be bradycardic at 54. Per the patient's , he has been experiencing dark tarry stools for the past 4 days. The patient currently denies XX. Initial VS at presentation: 97.9? F, HR 54, R 19, 111/54, and 100% on RA. ED workup showed: WBC 10.5, hemoglobin 4.6 (previously 7.5 on 04/25), INR 1.6, sodium 131, creatinine 3.57 and GFR 17 (previously 2.87 and GFR 21 on 04/25), glucose 142, albumin 2.9. Review of Systems Review of Systems: All systems reviewed & are unremarkable except as noted in HPI and below PMFSH Past Medical History Medical History (Updated 05/02/25 @ 20:32 by Anahi Miranda, KYRA) Atherosclerosis of aorta Atrial fibrillation HTN (hypertension) Alcohol abuse Malignant neoplasm of prostate Dysphonia Chronic bilateral low back pain Encephalopathy Mixed hyperlipidemia NANDINI (acute kidney injury) Pneumonia Fluid overload Epistaxis r nares no bleeding site seen Gout, unspecified Gout CKD (chronic kidney disease) stage 4, GFR 15-29 ml/min Osteoarthrosis, localized, primary, involving lower leg Osteoarthrosis, localized, primary, involving hand Lumbar stenosis Anemia in chronic kidney disease Diabetes mellitus currently diet controlled, A1C 6.1% on 02/27/25 Surgical History Surgical History H/O cataract extraction History of appendectomy H/O laminectomy C3-C4 History of carpal tunnel release History of repair of rotator cuff H/O arthroscopy of knee Family History Family History Mother Hypertension, Onset Age: 72 Father Malignant neoplasm of prostate, Onset Age: 76 Social History Social History Social History: Caffeine- coffee Smoking packs per day: 1 Smoking cigarettes per day: 20.0 Years smoked: 40 Smoking pack-years: 40.00 Smoking status: Former smoker Tobacco type: cigarettes Second hand tobacco smoke exposure: No Additional smoking assessment comments: Quit 40 years ago Alcohol intake: current Drinks per week: 10 Substance use: never Substance use type: does not use Do You Feel Safe in your Home?: Yes Lack of Transportation: No Lack of Food: Never True Current Housing: I Have Housing Concerned About Future Housing: No Difficulty Paying Gas/Electric Bills: No Difficulty Paying for Meds: No Currently Unemployed: No Education: Trade/Vocational Certificate Difficulty w/ Childcare or Family Care: No Gender identity (if verbalized by the patient): Male Spiritual care concerns: No Meds Home Medications and Allergies Home Medications ?Medication ?Instructions ?Recorded ?Confirmed ?Type acetaminophen 160 mg/5 mL oral 650 mg (20.3125 mL) fee ding tube 04/24/25 05/02/25 Rx suspension (Nortemp) Q4H PRN Mild Pain (1-3) Or F ever #30 mL amlodipine 5 mg tablet (Norvasc) 5 mg feeding tube RICK LY #30 tabs 04/24/25 05/02/25 Rx apixaban 2.5 mg tablet (Eliquis) 2.5 mg feeding tube Q 12HR #60 tabs 04/24/25 05/02/25 Rx famotidine 20 mg tablet (Pepcid) 10 mg (1/2 x 20 mg) f eeding tube 04/24/25 05/02/25 Rx EVERY OTHER DAY #30 tabs febuxostat 80 mg tablet 80 mg feeding tube DAILY #90 tabs 04/24/25 05/02/25 Rx furosemide 40 mg tablet See Rx Instructions .Route . COMPLEX 04/24/25 05/02/25 H istory hydralazine 25 mg tablet 25 mg feeding tube Q8H #90 t abs 04/24/25 05/02/25 Rx levetiracetam 100 mg/mL oral 750 mg (7.5 mL) feeding t ube Q12HR 04/24/25 05/02/25 Rx solution #473 mL simvastatin 40 mg tablet See Rx Instructions .Route . COMPLEX 04/24/25 05/02/25 History labetalol 100 mg tablet 100 mg feeding tube Q12H 02/1605/02/25 History Allergies Allergy/AdvReac Type Severity Reaction Status Date / Time allopurinol Allergy Unknown Skin Verified 05/02/25 18:36 Reaction diclofenac Allergy Unknown Pt doesn't Verified 05/02/25 18:36 know doxycycline Allergy Unknown hands Verified 05/02/25 18:36 probenecid Allergy Unknown Skin Verified 05/02/25 18:36 Reaction Vital Signs Vital Signs - 24 hr 05/02/25 14:38 05/02/25 14:48 05/02/25 14:49 Temperature 97.9 F Pulse Rate 54 L 46 L Respiratory Rate 19 17 18 Blood Pressure 111/54 L 109/69 Pulse Oximetry 100 100 100 Oxygen Delivery Room Air 05/02/25 17:15 05/02/25 17:31 05/02/25 18:51 Temperature 96.1 F L 96.2 F L 94.0 F L Pulse Rate 58 L 66 59 L Respiratory Rate 19 16 20 Blood Pressure 113/57 L 109/66 133/51 L Pulse Oximetry 98 99 98 Oxygen Delivery 05/02/25 19:06 Temperature 94.0 F L Pulse Rate 59 L Respiratory Rate 20 Blood Pressure 136/54 L Pulse Oximetry 96 Oxygen Delivery Exam Const: General: comfortable and no acute distress Other: , male, nontoxic appearance HENMT: Face/Nose/Sinus: Normal nares present Mouth: Yes moist mucous membranes Eyes: General: appearance normal, both eyes and all related structures Sclera: sclerae normal Pupils: Equal, round and reactive pupils present EOM: EOMs intact bilaterally Neck: Other: [place] collar in place Resp: Effort & Inspection: normal respiratory effort Auscultation: clear to auscultation bilaterally Cardio: Rate: bradycardic (Mild, 40 to 50s) Rhythm: regular rhythm Other: S1-S2 present without murmur, rub, ectopy GI: Other: Abdomen soft, nondistended, nontender. Normoactive bowel sounds in all quadrants. Urinary Catheter: Urinary Catheter: patent and draining Skin: General skin exam: normal color and no rashes or lesions noted Wounds: no wounds Neuro: Speech: normal speech Motor exam (neuro): 5/5 motor strength present throughout Sensory Exam: normal sensation Other: A&O x4 Extrem: General: normal to inspection Psych: Mental Status: mental status grossly normal Affect: normal affect Other: Fair insight and judgment, pleasant H&P: Results Labs Labs: Short CBC 05/02/25 Range/Units 14:48 WBC 10.5 H (4.5-10.0) K/mm3 Hgb 4.6 L* (14.0-18.0) g/dL Hct 14.2 L* (42.0-52.0) % Plt Count 330 (150-375) k/mm3 BMP 05/02/25 14:48 Sodium 131 L Potassium 5.0 Chloride 97 L Carbon Dioxide 23 BUN 125 H* Creatinine 3.57 H Glucose 142 H Calcium 8.7 Liver Function 05/02/25 Range/Units 14:48 Total Bilirubin 0.3 (0.2-1.3) mg/dL AST 31 (17-59) U/L ALT 24 (6-50) U/L Alkaline Phosphatase 104 (38-126) U/L Albumin 2.9 L (3.5-5.1) g/dL Assessment and Plan Assessment and plan (1) GI bleed: Qualifiers: GI bleed type/associated pathology: melena Qualified Code(s): K92.1 - Melena Code(s): K92.2 - Gastrointestinal hemorrhage, unspecified Status: Acute Assessment and Plan: Patient presented here on 05/02 with 4 days of dark tarry stools. Currently on chronic anticoagulation for atrial fibrillation, recent diagnosis and recent medication. Guaiac-positive in the ED home. Likely GI bleed due to anticoagulation superimposed on chronic anemia secondary to CKD. - Hgb 4.6 upon admission, receiving 2 units PRBC. Recheck this evening at 11:00 p.m., 1 hour post transfusion. - add iron, TIBC, ferritin, B12, folic acid, and TSH - transfuse if <7 - trend H&H - hold anticoagulation - GI consulted - PPI IV BID (2) Hypothermia: Qualifiers: Encounter type: initial encounter Qualified Code(s): T68.XXXA - Hypothermia, initial encounter Code(s): T68.XXXA - Hypothermia, initial encounter Status: Acute Assessment and Plan: Initial recorded temperature in the ED 97.9, re-evaluated upon admission and temperature 93.3?. Temp sensing Hamilton placed. Alma Humitcheler initiated. Low suspicion for sepsis as the patient's white count is 10.5 and he has no complaints. Patient found to be profoundly anemic at 4.6. Receiving 2 units of PRBC. Suspect hypothermia secondary to anemia. - continue Alma Hugger, improving and now 95.3? F - monitor temp - receiving blood transfusion for anemia (3) Acute kidney injury superimposed on CKD: Code(s): N17.9 - Acute kidney failure, unspecified; N18.9 - Chronic kidney disease, unsp ecified Status: Acute Assessment and Plan: Patient has history of CKD stage 4. Upon admission the patient's creatinine 3.7, BUN 25, GFR 16. Previously 2.87, BUN 73, GFR 21 on 04/25/2025. Likely related to profound anemia. Receiving 2 units of PRBC. BP also on the low end of normotensive upon arrival. Will additionally give 1L judiciously at 75 mL/hour x1 L. - trend renal function - correct electrolytes as needed - consider further workup and nephrology consultation if no improvement with bl ood products and IV fluids (4) Anemia in chronic kidney disease: Qualifiers: Chronic kidney disease stage: stage 4 (GFR 15-29) Qualified Code(s): N18.4 - Chronic kidney disease, stage 4 (severe); D63.1 - Anemia in chronic kidney disease Code(s): N18.9 - Chronic kidney disease, unspecified; D63.1 - Anemia in chronic kidney disease Status: Chronic Assessment and Plan: - see #1 (5) Atrial fibrillation: Qualifiers: Atrial fibrillation type: unspecified chronic Qualified Code(s): I48.20 - Chronic atrial fibrillation, unspecified Code(s): I48.91 - Unspecified atrial fibrillation Status: Chronic Assessment and Plan: Recent diagnosis of AFib and was started on labetalol and Eliquis. Arrived bradycardic at 53 and concern for GI bleed. - hold labetalol and Eliquis. - telemetry monitoring (6) Type II fracture of odontoid process: Qualifiers: Encounter type: subsequent encounter Fracture alignment: nondisplaced Fracture healing: with routine healing Fracture type: closed Qualified Code(s): S12.112D - Nondisplaced Type II dens fracture, subsequent encounter for fracture with routine healing Code(s): S12.110A - Anterior displaced Type II dens fracture, initial encounter for closed fracture Status: Chronic Assessment and Plan: Sustained a type 2 odontoid fracture of the base of the dens with 2 mm distraction per brain MRI performed on 04/13/2025. Previously evaluated by Neurosurgery, [place] collar placed, will need follow-up outpatient. - continue [place] collar - continue PT/OT in-patient, was receiving therapy at [facility] (7) Dysphagia: Qualifiers: Dysphagia type: unspecified Qualified Code(s): R13.10 - Dysphagia, unspecified Code(s): R13.10 - Dysphagia, unspecified Status: Chronic Assessment and Plan: Dysphasia noted during most recent admission. Failed MBS on 04/17/2025. PEG subsequently placed on 04/20. 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 - continue inpatient (8) Seizure: Code(s): R56.9 - Unspecified convulsions Status: Chronic Assessment and Plan: Recent new seizure activity suspected to be secondary to alcohol use/withdrawal. Currently stable. - continue Keppra 750 mg b.i.d. (9) Essential (primary) hypertension: Code(s): I10 - Essential (primary) hypertension Status: Chronic Assessment and Plan: - chronic, currently 141/67, stable. - continue home medications: Amlodipine 5 mg daily, hydralazine 25 mg Q8h. Holding labetalol for bradycardia. - monitor (10) Diabetes mellitus: Qualifiers: Chronic kidney disease stage: stage 4 (severe) Diabetes mellitus compl ication detail: with chronic kidney disease Diabetes mellitus complication status: with kidney complications Diabetes mellitus halfway insulin use: without watermaster use Diabetes mellitus type: type 2 Qualified Code(s): E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; N18.4 - Chronic kidney disease, stage 4 (severe) Code(s): E11.9 - Type 2 diabetes mellitus without complications Status: Chronic Assessment and Plan: History of diabetes, currently diet controlled. However recently started on tube feedings. - hypoglycemia protocol - POC blood glucose q6h - correct regimen ordered - low dose TIDWM q6h - A1C 6.1% on 02/27/2025 Plan Diet: NPO, tube feeds GI Prophylaxis: Ppi b.i.d. DVT Prophylaxis: Holding Eliquis, SCDs IV fluids: LR 100 mL/hour x1 L Lines/Tubes: Peripheral IV, peg tube Code Status: DNR Quality VTE Prophylaxis VTE prophylaxis: mechanical ordered If No VTE Prophylaxis Answer both mechanical and pharmacologic: Reason no pharmacologic proph: medical contraindication Hospitalist MIPS Advance Care Plan I have confirmed that the patient's Advanced Care Plan is present, code status is documented, or surrogate decision maker is listed in patient medical record.: Yes Medication Reconciliation I have utilized all available resources to obtain, update and review the patients current medications (includes all prescriptions, OTC, herbals, cannabis, and nutritional supplements).: Yes
[2025-05-02] MEDS: LACTATED RINGERS 1,000 ML 100 ML IV CONT (21:38)
[2025-05-02] MEDS: levETIRAcetam ORAL SOL 500 MG/5 ML UDC 750 MG FEED TUBE (22:00)
[2025-05-02 22:13] LABS: Hemoglobin 6.8 g/dL (14.0-18.0)
[2025-05-02 22:14] LABS: Hematocrit 20.5 % (42.0-52.0)
[2025-05-02 22:44] LABS: Iron 73 ug/dL (49-181)
[2025-05-02 22:55] LABS: Percent Iron Saturation 38 % (20-50)
[2025-05-02 23:17] LABS: Thyroid Stimulating Hormone Reflex 5.010 uIU/mL (0.465-4.68)
[2025-05-02 23:21] LABS: Ferritin 310.00 ng/mL (11.1-264)
[2025-05-02 23:35] LABS: Vitamin B12 938.0 pg/mL (239-931)
[2025-05-03] VITALS (20 sets, daily range): BP systolic 116–134; BP diastolic 53–66; PULSE 50–62; RESP 16–20; TEMP 36.2–36.7; O2SAT 93–100
[2025-05-03] MEDS: ALBUMIN HUMAN 25% 25 GM/100 ML 100 ML IVPB ×4 (01:30→17:56)
[2025-05-03 01:48] LABS: Free T4 Free Thyroxine Reflex 1.39 ng/dL (0.78-2.19)
[2025-05-03 02:29] LABS: Total Triiodothyronine (T3) 1.01 NG/ML (0.82-1.58)
[2025-05-03 04:19] LABS: Hematocrit 25.6 % (42.0-52.0); Hemoglobin 8.5 g/dL (14.0-18.0); Immature Granulocyte Percent A 1.0 % (0-0.5); Lymphocytes Absolute Auto 1.42 K/mm3 (0.9-3.2); Mean Corpuscular HGB Conc 33.2 g/dl (32-36); Mean Corpuscular Hemoglobin 31.0 pg (26-34); Mean Corpuscular Volume 93.4 fl (80-100); Nucleated Red Blood Cells Absolute Auto 0.000 K/mm3 (0.0-0.012); Nucleated Red Blood Cells Perc 0.0 % (0.0-0.2); Platelet Count Result 328 k/mm3 (150-375); Red Blood Count 2.74 M/mm3 (4.6-6.20); White Blood Count 10.2 K/mm3 (4.5-10.0)
[2025-05-03 04:41] LABS: Alanine Aminotransferase 20 U/L (6-50); Albumin Level 3.0 g/dL (3.5-5.1); Alkaline Phosphatase 101 U/L (38-126); Anion Gap 10 mmol/L (4-12); Aspartate Amino Transferase 25 U/L (17-59); Bilirubin,Total 0.7 mg/dL (0.2-1.3); Calcium 8.7 mg/dL (8.4-10.2); Carbon Dioxide 22 mmol/L (22-30); Chloride 100 mmol/L (98-107); Estimated CRCL calculation 12 ml/min; Estimated Glomerular Filt Rate 17; Glucose 112 mg/dL (65-110); Potassium 4.9 mmol/L (3.4-5.0); Sodium 132 mmol/L (137-145); Total Protein 6.4 g/dL (6.3-8.2)
[2025-05-03 04:55] LABS: Blood Urea Nitrogen 121 mg/dL (9-20)
[2025-05-03] MEDS: PANTOPRAZOLE SODIUM IV 40 MG VIAL IV PUSH ×2 (06:21→20:04)
[2025-05-03 08:19] LABS: NT Pro B Type Natriuretic Pept 7210 pg/mL (19.9-100)
--- NOTE | 2025-05-03 09:24 | P.PNIM_ITS ---
Progress Note: A&P Assessment and Plan (1) Atrial fibrillation: Qualifiers: Atrial fibrillation type: unspecified chronic Qualified Code(s): I48.20 - Chronic atrial fibrillation, unspecified Code(s): I48.91 - Unspecified atrial fibrillation Status: Chronic (2) Alcohol abuse: Code(s): F10.10 - Alcohol abuse, uncomplicated Status: Acute (3) Acute kidney injury superimposed on CKD: Code(s): N17.9 - Acute kidney failure, unspecified; N18.9 - Chronic kidney disease, unspecified Status: Acute (4) Anemia: Code(s): D64.9 - Anemia, unspecified Status: Acute (5) Shortness of breath: Code(s): R06.02 - Shortness of breath Status: Acute Plan 84 y/o M with PMH of alcohol use disorder, hypertension, prostate cancer, hyperlipidemia, gout, CKD stage IV, seizures, dysphagia S/P peg placement, atrial fibrillation on anticoagulation, anemia of chronic disease, and type 2 diabetes presents here with anemia and bradycardia, melena, shortness of breath x2 days. The patient presents here from [facility] via EMS on 05/02 for further evaluation of low hemoglobin and bradycardia. Patient currently at [facility] after a recent admission at [facility] from 04/12/25 to 04/24/25. Seen at that time for altered mental status/new onset seizure disorder. Seizure suspected to be related to alcohol use or withdrawal, started on Keppra 750 mg twice daily. Patient additionally sustained a type 2 odontoid fracture for which he saw neuro surgery and was placed in an Dungannon collar, follow-up with their service in 6 weeks and discharged to [facility] for PT/OT. Patient also failed MBS on 04/17 for which a PEG tube was placed on 04/20 and he was started on tube feeds, strict NPO, and to continue speech therapy at [facility]. Patient also developed new AFib during this admission for which he was restarted on labetalol for concurrent hypertension and he was started on anticoagulation, Eliquis. Additionally treated for CAP for which he did not require supplemental oxygen. Has since been at [facility] and has had un unremarkable recovery up to today when his Hgb was found to be 5.2, verified via repeat (4.8). Patient also noted to be bradycardic at 54. Per the patient's , he has been experiencing dark tarry stools for the past 4 days. Initial VS at presentation: 97.9? F, HR 54, R 19, 111/54, and 100% on RA. ED workup showed: WBC 10.5, hemoglobin 4.6 (previously 7.5 on 04/25), INR 1.6, sodium 131, creatinine 3.57 and GFR 17 (previously 2.87 and GFR 21 on 04/25), glucose 142, albumin 2.9. ----- Shortness of breath -did not complain of this on admission, on 05/03/2025 reports shortness of breath for a few days now. Reports cough. -patient did received 3 units PRBC. Lungs are clear, no lower extremity swelling chest x-ray reveals possible pulmonary edema, possible transfusion associated overload, CRITICAL CARE UNIT MANAGER Lasix has been continued. BNP is 7200 which is less than his previous values -at this time patient is saturating well on room air but did require O2 supplementation overnight, will check a CT chest without contrast, V/Q scan, quad viral screen, viral respiratory pathogen panel Melena, acute anemia on chronic anemia -GI consulted. Status post 3 units PRBC. Continue monitoring stool output and hemoglobin. -continue Protonix 40 mg IV b.i.d. -holding CRITICAL CARE UNIT MANAGER was Dysphagia status post PEG placement -speech therapy consulted -tube feeds to be restarted per Gastroenterology NANDINI and CKD -recent baseline around 3.0. Presents to serum creatinine 3.49, no improvement after 3 unit PRBC and 1 L of lactated Ringer's -nephrology consultation. Check urinalysis -continue intake/output monitoring and daily weights. Hypertension -at goal -hold CRITICAL CARE UNIT MANAGER amlodipine and hydralazine due to suspected upper GI bleed. History of alcohol use disorder, seizure disorder -continue CRITICAL CARE UNIT MANAGER Keppra 750 mg p.o. b.i.d. Atrial fibrillation on anticoagulation, bradycardia -slow response, holding CRITICAL CARE UNIT MANAGER labetalol. Check EKG -continue telemetry Ijn-ehmzvib-ymjylqazq diabetes mellitus -Accu-Cheks q.6 hours with low-dose insulin sliding scale and hypoglycemia protocol Type 2 fracture of odontoid process -continue Dungannon collar -continue PT/OT Leukocytosis -mild, continue to trend. Afebrile. Hypothermia -on admission, received heating blanket/Alma Hugger, could have been due to anemia ----- NPO, tube feeds after with dietitian consult Protonix 40 mg IV b.i.d. Hold CRITICAL CARE UNIT MANAGER Marcia, SCDs Received 3 units PRBC in 1 L lactated Ringer's on admission Peripheral IV, PEG tube DNR Time Spent With Patient Time: Greater than 55 minutes spent on evaluations, review of imaging, [id number] time, discussion with nursing and patient's family. Subjective Date/time seen: 05/03/25 09:24 Interval history: This morning patient reports shortness of breath which has been going on for a few days, cough and he is unable to produce sputum. Denies regurgitation of gastric contents. Denies fever. No wheezing. Review of Systems Review of Systems: All systems reviewed & are unremarkable except as noted in HPI and below (Subjective) Exam Const: General: comfortable and no acute distress Other: A&O x3 Resp: Effort & Inspection: normal respiratory effort Auscultation: clear to auscultation bilaterally Cardio: Rate: bradycardic Rhythm: regular rhythm GI: Inspection: non-distended GI Palp: Yes Soft to palpation and No Tenderness to palpation present (GI) Neuro: Motor exam (neuro): 5/5 motor strength present throughout Extrem: General: no edema Objective Data Vital Signs Vital Signs: Vital Signs - 24 hr 05/02/25 14:38 05/02/25 14:48 05/02/25 14:49 Temperature 97.9 F Pulse Rate 54 L 46 L Respiratory Rate 19 17 18 Blood Pressure 111/54 L 109/69 Pulse Oximetry 100 100 100 Oxygen Delivery Room Air 05/02/25 17:15 05/02/25 17:31 05/02/25 18:51 Temperature 96.1 F L 96.2 F L 94.0 F L Pulse Rate 58 L 66 59 L Respiratory Rate 19 16 20 Blood Pressure 113/57 L 109/66 133/51 L Pulse Oximetry 98 99 98 Oxygen Delivery 05/02/25 19:06 05/02/25 20:00 05/02/25 20:00 Temperature 94.0 F L 95.3 F L Pulse Rate 59 L 48 L Respiratory Rate 20 14 Blood Pressure 136/54 L 113/48 L Pulse Oximetry 96 100 Oxygen Delivery Room Air 05/02/25 20:00 05/02/25 20:06 05/02/25 20:10 Temperature 94.2 F L 93.3 F L Pulse Rate 60 65 Respiratory Rate 16 Blood Pressure 141/67 H Pulse Oximetry 100 Oxygen Delivery 05/02/25 20:25 05/02/25 20:55 05/02/25 21:08 Temperature 94 F L 95.2 F L 95.3 F L Pulse Rate 48 L Respiratory Rate 14 Blood Pressure 113/48 L Pulse Oximetry 100 Oxygen Delivery 05/02/25 21:10 05/02/25 22:00 05/02/25 22:03 Temperature 95.7 F L 96.8 F L Pulse Rate 52 L Respiratory Rate Blood Pressure Pulse Oximetry Oxygen Delivery 05/03/25 00:00 05/03/25 00:00 05/03/25 00:00 Temperature 97.2 F L Pulse Rate 52 L 50 L Respiratory Rate 16 Blood Pressure 118/53 L Pulse Oximetry 100 Oxygen Delivery Room Air 05/03/25 01:04 05/03/25 01:23 05/03/25 02:00 Temperature 97.8 F 97.9 F Pulse Rate 51 L 52 L 54 L Respiratory Rate 16 16 Blood Pressure 116/53 L 118/54 L Pulse Oximetry 99 100 Oxygen Delivery 05/03/25 02:23 05/03/25 03:23 05/03/25 03:33 Temperature 98.0 F 98.0 F Pulse Rate 53 L 53 L Respiratory Rate 16 16 Blood Pressure 127/53 L 125/56 L Pulse Oximetry 100 100 Oxygen Delivery Room Air 05/03/25 03:57 05/03/25 04:00 05/03/25 04:00 Temperature 98 F 98 F Pulse Rate 56 L 54 L 53 L Respiratory Rate 16 16 Blood Pressure 120/58 L 120/58 L Pulse Oximetry 99 99 Oxygen Delivery 05/03/25 06:00 05/03/25 08:00 Temperature 97.7 F Pulse Rate 55 L 58 L Respiratory Rate 20 Blood Pressure 128/55 L Pulse Oximetry 94 Oxygen Delivery Intake/Output Intake/Output: Intake & Output 04/30/25 05/01/25 05/02/25 05/03/25 23:59 23:59 23:59 23:59 Intake Total 886.7 450 Output Total 700 Balance 886.7 -250 Meds/Results Medications: Active Medications Generic Name Dose Route Start Last Admin Trade Name Freq PRN Reason Stop Dose Admin Acetaminophen 650 mg 05/02/25 20:49 Acetaminophen Elixir 325 Mg/10.15 Ml Udc FEED TUBE Q4H PRN Mild Pain (1-3) or Fever Amlodipine Besylate 5 mg 05/03/25 09:00 Amlodipine Besylate 5 Mg Tablet FEED TUBE DAILY OLENA Dextrose 12.5 gm 05/02/25 20:20 Dextrose 50% 25 Gm/50 Ml Syringe IV PUSH PRN PRN Hypoglycemia Protocol Febuxostat 80 mg 05/03/25 09:00 Febuxostat 40 Mg Tablet FEED TUBE DAILY OLENA Furosemide 40 mg 05/03/25 09:00 Furosemide 40 Mg Tablet FEED TUBE DAILY OLENA Glucagon 1 mg 05/02/25 20:20 Glucagon For Inj 1 Mg Vial IM PRN PRN Hypoglycemia Protocol Glucose 15 gm 05/02/25 20:20 Glucose Oral Gel 15 Gm Of Glucse In 37.5 Gm Tube PO PRN PRN Hypoglycemia Protocol Hydralazine HCl 25 mg 05/02/25 22:00 05/03/25 05:12 Hydralazine Hcl 25 Mg Tablet FEED TUBE Not Given Q8H OLENA Albumin Human 100 mls @ 60 mls/hr 05/03/25 00:00 05/03/25 06:21 Albutein IVPB 05/03/25 19:39 60 mls/hr Q6HR OLENA Administration Dextrose 1,000 mls @ 100 mls/hr 05/02/25 20:20 Dextrose 5% 1,000 Ml IVPB PRN PRN Hypoglycemia Protocol Insulin Aspart 2 - 5 units 05/03/25 00:00 05/03/25 05:31 Insulin Aspart (*Bkc) 100 Units/Ml SUB-Q Not Given Q6HR OLENA Protocol Levetiracetam 750 mg 05/02/25 21:00 05/02/25 22:00 Levetiracetam Oral Pallavi 500 Mg/5 Ml Udc FEED TUBE 750 mg Q12HR OLENA Administration Miscellaneous Information 1 each 05/03/25 00:01 Pharmacy Is Out Of Stock On Febuxostat 40 Mg, Can Pt Use From Home? Pharmacy Will Have Mor XX 06/02/25 00:00 CLARIFY OLENA Pantoprazole Sodium 40 mg 05/03/25 06:00 05/03/25 06:21 Pantoprazole Sodium Iv 40 Mg Vial IV PUSH 40 mg Q12H OLENA Administration Simvastatin 40 mg 05/03/25 09:00 Simvastatin 20 Mg Tablet FEED TUBE DAILY [facility] Radiology Results: ITS Impressions Chest X-Ray 05/03/25 08:28 IMPRESSION: 1. Interstitial pulmonary edema and/or pneumonitis. 2. Bibasilar atelectasis and/or pleural effusions. Chest CT 05/03/25 09:17 IMPRESSION: 1. Diffuse lung disease, likely a combination of moderate pulmonary edema and pneumonia. 2. Moderate-sized pleural effusions. 3. Ascites. Labs Labs: Laboratory Results - last 24 hr 05/02/25 05/02/25 05/03/25 14:48 22:06 00:39 WBC 10.5 H RBC 1.44 L Hgb 4.6 L* 6.8 L* Hct 14.2 L* 20.5 L* MCV 98.6 MCH 31.9 MCHC 32.4 RDW 14.9 H Plt Count 330 MPV 11.2 H Immature Gran % (Auto) 1.5 H Neut % (Auto) 76.5 H Lymph % (Auto) 12.5 L Clarke % (Auto) 7.4 Eos % (Auto) 1.9 Baso % (Auto) 0.2 Lymph # (Auto) 1.31 Clarke # (Auto) 0.8 H Eos # (Auto) 0.2 Baso # (Auto) 0.0 Abs Immat Gran (auto) 0.16 H Absolute Neuts (auto) 8.0 H Absolute Nucleated RBC 0.000 Nucleated RBC % 0.0 PT 18.7 H INR 1.6 APTT 48.0 H Sodium 131 L Potassium 5.0 Chloride 97 L Carbon Dioxide 23 Anion Gap 11 BUN 125 H* Creatinine 3.57 H Estim Creat Clear Calc 11 Estimated GFR 16 L Glucose 142 H POC Capillary Glucose 139 H Calcium 8.7 Iron 73 TIBC 193 L % Saturation 38 Ferritin 310.00 H Total Bilirubin 0.3 AST 31 ALT 24 Alkaline Phosphatase 104 NT-Pro-B Natriuret Pep Total Protein 6.2 L Albumin 2.9 L Vitamin B12 938.0 H Folate 6.2 TSH (Reflex) 5.010 H Free T4 1.39 Total T3 1.01 Blood Type B Negative Antibody Screen Negative Crossmatch See Detail 05/03/25 04:04 WBC 10.2 H RBC 2.74 L Hgb 8.5 L Hct 25.6 L MCV 93.4 D MCH 31.0 MCHC 33.2 RDW 15.9 H Plt Count 328 MPV 11.1 H Immature Gran % (Auto) 1.0 H Neut % (Auto) 72.1 Lymph % (Auto) 14.0 L Clarke % (Auto) 9.9 H Eos % (Auto) 2.3 Baso % (Auto) 0.7 Lymph # (Auto) 1.42 Clarke # (Auto) 1.0 H Eos # (Auto) 0.2 Baso # (Auto) 0.1 Abs Immat Gran (auto) 0.10 H Absolute Neuts (auto) 7.3 H Absolute Nucleated RBC 0.000 Nucleated RBC % 0.0 PT INR APTT Sodium 132 L Potassium 4.9 Chloride 100 Carbon Dioxide 22 Anion Gap 10 BUN 121 H* Creatinine 3.51 H Estim Creat Clear Calc 12 Estimated GFR 17 L Glucose 112 H POC Capillary Glucose Calcium 8.7 Iron TIBC % Saturation Ferritin Total Bilirubin 0.7 AST 25 ALT 20 Alkaline Phosphatase 101 NT-Pro-B Natriuret Pep 7210 H Total Protein 6.4 Albumin 3.0 L Vitamin B12 Folate TSH (Reflex) Free T4 Total T3 Blood Type Antibody Screen Crossmatch
--- NOTE | 2025-05-03 09:24 | ECG_ITS ---
Test Date: 2025-05-03 09:57:25 Measurements Intervals [place] Rate: 59 P: 4 WV: 208 QRS: -17 QRSD: 96 T: 12 QT: 456 QTc: 455 Interpretive Statements SINUS BRADYCARDIA WITH FREQUENT SUPRAVENTRICULAR PREMATURE COMPLEXES ABNORMAL ECG Compared to ECG 04/14/2025 12:29:02 Atrial fibrillation no longer present Left-axis deviation no longer present Electronically Signed On 05-03-2025 13:08:13 [employer]IVITY THER[employer]Y TEACHER by Markie Warren M.D.
--- NOTE | 2025-05-03 09:28 | P.CONNP_ITS ---
Assessment and Plan Assessment and plan (1) Acute kidney injury superimposed on CKD: Code(s): N17.9 - Acute kidney failure, unspecified; N18.9 - Chronic kidney disease, unspecified Status: Acute Assessment and Plan: Shantanu has chronic kidney disease. This is due to diabetes and hypertension. The patient has a higher than baseline creatinine right now although it does seem to bounce up and down and it has been this high before. The patient had significant anemia from GI bleeding which certainly could cause some prerenal factors. The patient has pneumonia. Possibly he aspirated. This could contribute to kidney disease as well. At this point I am going to get a renal ultrasound, urinalysis, urine electrolytes and fractional excretion of urea. Will get a CK as well. Will follow the hemoglobin. We can start some THEO because of his infection we do not need to give iron. GI will be seeing the patient. (2) Shortness of breath: Code(s): R06.02 - Shortness of breath Status: Acute Assessment and Plan: Patient is not on oxygen right now. His checks x-ray does show some fluid however. He is on diuretics. Will follow the creatinine. (3) GI bleed: Qualifiers: GI bleed type/associated pathology: melena Qualified Code(s): K92.1 - Melena Code(s): K92.2 - Gastrointestinal hemorrhage, unspecified Status: Acute Assessment and Plan: The patient has anemia plus black stools. GI is to see the patient (4) Anemia: Code(s): D64.9 - Anemia, unspecified Status: Acute Assessment and Plan: will start Epogen (5) Atrial fibrillation: Qualifiers: Atrial fibrillation type: unspecified chronic Qualified Code(s): I48.20 - Chronic atrial fibrillation, unspecified Code(s): I48.91 - Unspecified atrial fibrillation Status: Chronic Assessment and Plan: the patient was on Eliquis. This is on hold because the bleeding. His heart rate is good at 58 (6) Pneumonia: Code(s): J18.9 - Pneumonia, unspecified organism Status: Acute Assessment and Plan: the patient is getting antibiotic (7) Hyponatremia: Code(s): E87.1 - Hypo-osmolality and hyponatremia Status: Acute Assessment and Plan: sodium is slightly low, probably from the renal failure History of Present Illness Reason for Consult Consult date: 05/03/25 Chief Complaint Chief complaint: Anemia/GI Bleed History of Present Illness Narrative: Shantanu is a very pleasant 84-year-old gentleman who has multiple medical problems including chronic kidney disease stage 4, hypertension, diabetes, history of alcohol use in the past, prostate cancer, hyperlipidemia, gout, lumbar stenosis, anemia in chronic kidney disease, renal osteodystrophy, who has been sick for few weeks. It started out as a headache. His CT was okay except that he was found to have a C2 fracture of the neck. The Haakon collar was placed. Neurosurgery saw the patient in said to treat conservatively in follow-up with x-rays. He had generalized weakness but also had inability to swallow so he had a feeding tube placed, was made NPO, and sent to acute rehab. There he was getting treatment but then had some blood work done showing his hemoglobin dropped precipitously and he developed black stools. He was brought back to [facility]. He was given some blood transfusions and hemoglobin is better now. In the meantime, he has had chronic kidney disease. His creatinine seems to run any of for from about 2 and half to 3-1/2 over the last couple of years. When he was admitted in March his creatinine was 3.08. It fell to the high 2s for a while and then on admission yesterday it was up to the 3.5 and is about that today again. He has not had any bloody urine foamy urine kidney stones or bladder infections. He has not taken any nonsteroidal anti-inflammatory agents. He is on some diuretics but has not been on any particularly nephrotoxic medications he is on tube feedings. he is been on furosemide 40mg a day since admission in March. Review of Systems 2 Constitutional: Constitutional: Reports no additional constitutional complaints Eyes: Eyes: Reports no additional eye complaints ENT: Reports system reviewed and no additional complaints, except as documented Cardiovascular: Cardiovascular: Reports no additional cardiovascular complaints Respiratory: Respiratory: Reports no additional respiratory complaints Gastrointestinal: Gastrointestinal: Reports no additional gastrointestinal complaints Genitourinary: Genitourinary: Reports no additional male genitourinary complaints Musculoskeletal: Musculoskeletal: Reports no additional musculoskeletal complaints Integumentary/Breasts: Skin/Breast: Reports system reviewed and no additional complaints, except as docu Neurologic: Reports system reviewed and no additional complaints, except as documented Psychiatric: Psychiatric: Reports no additional psychiatric complaints Endocrine: Endocrine: Reports no additional endocrine complaints [facility] Past Medical History Medical History Alcohol abuse HTN (hypertension) Dysphonia Chronic bilateral low back pain Encephalopathy Atrial fibrillation Pneumonia Fluid overload NANDINI (acute kidney injury) Gout CKD (chronic kidney disease) stage 4, GFR 15-29 ml/min Osteoarthrosis, localized, primary, involving lower leg Osteoarthrosis, localized, primary, involving hand Atherosclerosis of aorta Lumbar stenosis Epistaxis r nares no bleeding site seen Anemia in chronic kidney disease Diabetes mellitus currently diet controlled, A1C 6.1% on 02/27/25 Gout, unspecified Malignant neoplasm of prostate Mixed hyperlipidemia Surgical History Surgical History H/O cataract extraction History of appendectomy H/O laminectomy C3-C4 History of carpal tunnel release History of repair of rotator cuff H/O arthroscopy of knee Family History Family History Mother Hypertension, Onset Age: 72 Father Malignant neoplasm of prostate, Onset Age: 76 Social History Social History Social History: Caffeine- coffee Smoking packs per day: 1 Smoking cigarettes per day: 20.0 Years smoked: 40 Smoking pack-years: 40.00 Smoking status: Former smoker Tobacco type: cigarettes Second hand tobacco smoke exposure: No Additional smoking assessment comments: Quit 40 years ago Alcohol intake: current Drinks per week: 10 Substance use: never Substance use type: does not use Do You Feel Safe in your Home?: Yes Lack of Transportation: No Lack of Food: Never True Current Housing: I Have Housing Concerned About Future Housing: No Difficulty Paying Gas/Electric Bills: No Difficulty Paying for Meds: No Currently Unemployed: No Education: Trade/Vocational Certificate Difficulty w/ Childcare or Family Care: No Gender identity (if verbalized by the patient): Male Spiritual care concerns: No Meds Home Medications and Allergies Home Medications ?Medication ?Instructions ?Recorded ?Confirmed ?Type acetaminophen 160 mg/5 mL oral 650 mg (20.3125 mL) fee ding tube 04/24/25 05/02/25 Rx suspension (Nortemp) Q4H PRN Mild Pain (1-3) Or F ever #30 mL amlodipine 5 mg tablet (Norvasc) 5 mg feeding tube RICK LY #30 tabs 04/24/25 05/02/25 Rx apixaban 2.5 mg tablet (Eliquis) 2.5 mg feeding tube Q 12HR #60 tabs 04/24/25 05/02/25 Rx famotidine 20 mg tablet (Pepcid) 10 mg (1/2 x 20 mg) f eeding tube 04/24/25 05/02/25 Rx EVERY OTHER DAY #30 tabs febuxostat 80 mg tablet 80 mg feeding tube DAILY #90 tabs 04/24/25 05/02/25 Rx furosemide 40 mg tablet See Rx Instructions .Route . COMPLEX 04/24/25 05/02/25 History hydralazine 25 mg tablet 25 mg feeding tube Q8H #90 t abs 04/24/25 05/02/25 Rx levetiracetam 100 mg/mL oral 750 mg (7.5 mL) feeding t ube Q12HR 04/24/25 05/02/25 Rx solution #473 mL simvastatin 40 mg tablet See Rx Instructions .Route . COMPLEX 04/24/25 05/02/25 History labetalol 100 mg tablet 100 mg feeding tube Q12H 02/1605/02/25 History Allergies Allergy/AdvReac Type Severity Reaction Status Date / Time allopurinol Allergy Unknown Skin Verified 05/02/25 18:36 Reaction diclofenac Allergy Unknown Pt doesn't Verified 05/02/25 18:36 know doxycycline Allergy Unknown hands Verified 05/02/25 18:36 probenecid Allergy Unknown Skin Verified 05/02/25 18:36 Reaction Vital Signs Vital Signs - 24 hr 05/02/25 14:38 05/02/25 14:48 05/02/25 14:49 Temperature 97.9 F Pulse Rate 54 L 46 L Respiratory Rate 19 17 18 Blood Pressure 111/54 L 109/69 Pulse Oximetry 100 100 100 Oxygen Delivery Room Air 05/02/25 17:15 05/02/25 17:31 05/02/25 18:51 Temperature 96.1 F L 96.2 F L 94.0 F L Pulse Rate 58 L 66 59 L Respiratory Rate 19 16 20 Blood Pressure 113/57 L 109/66 133/51 L Pulse Oximetry 98 99 98 Oxygen Delivery 05/02/25 19:06 05/02/25 20:00 05/02/25 20:00 Temperature 94.0 F L 95.3 F L Pulse Rate 59 L 48 L Respiratory Rate 20 14 Blood Pressure 136/54 L 113/48 L Pulse Oximetry 96 100 Oxygen Delivery Room Air 05/02/25 20:00 05/02/25 20:06 05/02/25 20:10 Temperature 94.2 F L 93.3 F L Pulse Rate 60 65 Respiratory Rate 16 Blood Pressure 141/67 H Pulse Oximetry 100 Oxygen Delivery 05/02/25 20:25 05/02/25 20:55 05/02/25 21:08 Temperature 94 F L 95.2 F L 95.3 F L Pulse Rate 48 L Respiratory Rate 14 Blood Pressure 113/48 L Pulse Oximetry 100 Oxygen Delivery 05/02/25 21:10 05/02/25 22:00 05/02/25 22:03 Temperature 95.7 F L 96.8 F L Pulse Rate 52 L Respiratory Rate Blood Pressure Pulse Oximetry Oxygen Delivery 05/03/25 00:00 05/03/25 00:00 05/03/25 00:00 Temperature 97.2 F L Pulse Rate 52 L 50 L Respiratory Rate 16 Blood Pressure 118/53 L Pulse Oximetry 100 Oxygen Delivery Room Air 05/03/25 01:04 05/03/25 01:23 05/03/25 02:00 Temperature 97.8 F 97.9 F Pulse Rate 51 L 52 L 54 L Respiratory Rate 16 16 Blood Pressure 116/53 L 118/54 L Pulse Oximetry 99 100 Oxygen Delivery 05/03/25 02:23 05/03/25 03:23 05/03/25 03:33 Temperature 98.0 F 98.0 F Pulse Rate 53 L 53 L Respiratory Rate 16 16 Blood Pressure 127/53 L 125/56 L Pulse Oximetry 100 100 Oxygen Delivery Room Air 05/03/25 03:57 05/03/25 04:00 05/03/25 04:00 Temperature 98 F 98 F Pulse Rate 56 L 54 L 53 L Respiratory Rate 16 16 Blood Pressure 120/58 L 120/58 L Pulse Oximetry 99 99 Oxygen Delivery 05/03/25 06:00 05/03/25 08:00 Temperature 97.7 F Pulse Rate 55 L 58 L Respiratory Rate 20 Blood Pressure 128/55 L Pulse Oximetry 94 Oxygen Delivery Exam 2 Narrative: Exam Narrative: Well developed well-nourished male in no acute distress Skin is warm and dry without rash Head normocephalic atraumatic Eyes normal sclerae and conjunctivae Mouth normal lips teeth and gums Neck Haakon collar in place. Axillae no nodes Back no CVA tenderness Lungs symmetric and clear to auscultation and percussion Heart irregular irregular rhythm, normal rate, without rub or gallop Abdomen bowel sounds positive soft nontender, no HSM, masses, or bruits. Extremities no cyanosis, clubbing, or edema Pulses 2+ equal in radial arteries Psychological not anxious or depressed Neuro alert and oriented x3 motor 5/5 cranial nerves 2-12 intact reflexes 2+ and equal in the biceps and patellar tendons cerebellar normal rapid alternating movements Results Lab Results 05/03/25 04:04 05/03/25 04:04 Lab results: Most recent lab results Calcium 8.7 mg/dL (8.4-10.2) 05/03/25 04:04
[2025-05-03 10:06] LABS: Creatine Kinase < 20 U/L (55-170)
[2025-05-03 10:41] LABS: Prostate Specific Antigen 1.9 ng/mL (< OR = 4.0)
[2025-05-03] MEDS: levETIRAcetam ORAL SOL 500 MG/5 ML UDC 750 MG FEED TUBE ×2 (10:57→20:05)
[2025-05-03] MEDS: FUROSEMIDE 40 MG TABLET FEED TUBE (10:58)
[2025-05-03] MEDS: SIMVASTATIN 20 MG TABLET 40 MG FEED TUBE (10:58)
[2025-05-03 11:56] LABS: Urea Random Urine 713 MG/DL
[2025-05-03 11:57] LABS: Total Protein Urine Random 185 mg/dL; Ur Ttl Prot Creatinine Ratio 4.20 mg/mg (0-0.20)
[2025-05-03 12:13] LABS: Influenza A QL RT-PCR Negative (Negative); Influenza B QL RT-PCR Negative (Negative); RSV RNA, RT-PCR Negative (Negative); SARS-CoV-2 RNA PCR Negative (Negative)
--- NOTE | 2025-05-03 12:17 | PCPTNOTE ---
PT eval not completed today: checked on pt ~ 1130, busy with nursing care; returned 1210- pt was sleeping, requested that pt not have PT today-- was gone all AM for testing, had a bad night and he has just fallen asleep; and does not have his shoes to walk in from home yet, does not like to walk in the grippy socks.
--- NOTE | 2025-05-03 15:06 | P.CONGI_ITS ---
Assessment and Plan Assessment and plan (1) Melena: Code(s): K92.1 - Melena Status: Acute Assessment and Plan: hold blood thinner protonix s/p blood transfusion and keep above 7 egd tomorrow to assess source of bleeding had recent g-tube (2) Acute on chronic anemia: Code(s): D64.9 - Anemia, unspecified Status: Acute Assessment and Plan: s/p transfusion (3) Acute kidney injury superimposed on CKD: Code(s): N17.9 - Acute kidney failure, unspecified; N18.9 - Chronic kidney disease, unspecified Status: Acute Assessment and Plan: advanced renal disease probably contributed to anemia (4) Seizure: Code(s): R56.9 - Unspecified convulsions Status: Chronic (5) Dysphagia: Qualifiers: Dysphagia type: unspecified Qualified Code(s): R13.10 - Dysphagia, unspecified Code(s): R13.10 - Dysphagia, unspecified Status: Chronic Assessment and Plan: g-tube in place he has been npo since (6) Alcohol abuse: Code(s): F10.10 - Alcohol abuse, uncomplicated Status: Acute (7) Type II fracture of odontoid process: Qualifiers: Encounter type: subsequent encounter Fracture type: closed Fracture alignment: nondisplaced Fracture healing: with routine healing Qualified Code(s): S12.112D - Nondisplaced Type II dens fracture, subsequent encounter for fracture with routine healing Code(s): S12.110A - Anterior displaced Type II dens fracture, initial encounter for closed fracture Status: Chronic GI Consult Note Consult date/time: 05/03/25 15:06 Reason for consult: acute on chronic anemia HPI: Shantanu Burleson is a 84 year old male with history of alcohol abuse, hypertension, prostate cancer, hyperlipidemia, gout, CKD stage IV, seizures, dysphagia S/P peg placement, during recent hospitalization, atrial fibrillation on anticoagulation, anemia of chronic disease, and type 2 diabetes here with worsening anemia and bradycardia. [facility] a recent admission at [facility] from 04/12/25 to 04/24/25 when he was admitted for altered mental status/new onset seizure disorder which was suspected to be related to alcohol use or withdrawal, started on Keppra 750 mg twice daily. Also sustained a type 2 odontoid fracture for which he saw neuro surgery and was placed in an [place] collar, also failed MBS on 04/17 for which a PEG tube was placed on 04/20 and he was started on tube feeds, recently failed again another MBS. He also had new AFib during that admission for which he was started on anticoagulation, Eliquis. ER evaluation with Hgb down to 5.2 and received blood transfusion, patient noted dark stools. Also noted to be bradycardic at 54. Also creatinine 3.57 (previously 2.87). No hematemesis. Review of Systems 2 Constitutional: Constitutional: Reports weakness Eyes: Eyes: Reports no additional eye complaints ENT: Reports dysphagia Cardiovascular: Cardiovascular: Denies chest pain Respiratory: Respiratory: Denies cough Gastrointestinal: Comments: g-tube Genitourinary: Genitourinary: Denies flank pain Musculoskeletal: Musculoskeletal: Reports neck pain Integumentary/Breasts: Skin/Breast: Denies rash Neurologic: Denies Abnormal speech present Psychiatric: Psychiatric: Denies behavioral changes [facility] Past Medical History Medical History (Updated 05/03/25 @ 15:13 by Ryan Dewitt MD) Acute on chronic anemia Melena Atherosclerosis of aorta Atrial fibrillation HTN (hypertension) Alcohol abuse Malignant neoplasm of prostate Dysphonia Chronic bilateral low back pain Encephalopathy Mixed hyperlipidemia NANDINI (acute kidney injury) Pneumonia Fluid overload Epistaxis r nares no bleeding site seen Gout, unspecified Gout CKD (chronic kidney disease) stage 4, GFR 15-29 ml/min Osteoarthrosis, localized, primary, involving lower leg Osteoarthrosis, localized, primary, involving hand Lumbar stenosis Anemia in chronic kidney disease Diabetes mellitus currently diet controlled, A1C 6.1% on 02/27/25 Surgical History Surgical History H/O cataract extraction History of appendectomy H/O laminectomy C3-C4 History of carpal tunnel release History of repair of rotator cuff H/O arthroscopy of knee Family History Family History Mother Hypertension, Onset Age: 72 Father Malignant neoplasm of prostate, Onset Age: 76 Social History Social History Social History: Caffeine- coffee Smoking packs per day: 1 Smoking cigarettes per day: 20.0 Years smoked: 40 Smoking pack-years: 40.00 Smoking status: Former smoker Tobacco type: cigarettes Second hand tobacco smoke exposure: No Additional smoking assessment comments: Quit 40 years ago Alcohol intake: current Drinks per week: 10 Substance use: never Substance use type: does not use Do You Feel Safe in your Home?: Yes Lack of Transportation: No Lack of Food: Never True Current Housing: I Have Housing Concerned About Future Housing: No Difficulty Paying Gas/Electric Bills: No Difficulty Paying for Meds: No Currently Unemployed: No Education: Trade/Vocational Certificate Difficulty w/ Childcare or Family Care: No Gender identity (if verbalized by the patient): Male Spiritual care concerns: No Meds Home Medications and Allergies Home Medications ?Medication ?Instructions ?Recorded ?Confirmed ?Type acetaminophen 160 mg/5 mL oral 650 mg (20.3125 mL) fee ding tube 04/24/25 05/02/25 Rx suspension (Nortemp) Q4H PRN Mild Pain (1-3) Or F ever #30 mL amlodipine 5 mg tablet (Norvasc) 5 mg feeding tube RICK LY #30 tabs 04/24/25 05/02/25 Rx apixaban 2.5 mg tablet (Eliquis) 2.5 mg feeding tube Q 12HR #60 tabs 04/24/25 05/02/25 Rx famotidine 20 mg tablet (Pepcid) 10 mg (1/2 x 20 mg) f eeding tube 04/24/25 05/02/25 Rx EVERY OTHER DAY #30 tabs febuxostat 80 mg tablet 80 mg feeding tube DAILY #90 tabs 04/24/25 05/02/25 Rx furosemide 40 mg tablet See Rx Instructions .Route . COMPLEX 04/24/25 05/02/25 History hydralazine 25 mg tablet 25 mg feeding tube Q8H #90 t abs 04/24/25 05/02/25 Rx levetiracetam 100 mg/mL oral 750 mg (7.5 mL) feeding t ube Q12HR 04/24/25 05/02/25 Rx solution #473 mL simvastatin 40 mg tablet See Rx Instructions .Route . COMPLEX 04/24/25 05/02/25 History labetalol 100 mg tablet 100 mg feeding tube Q12H 02/1605/02/25 History Allergies Allergy/AdvReac Type Severity Reaction Status Date / Time allopurinol Allergy Unknown Skin Verified 05/02/25 18:36 Reaction diclofenac Allergy Unknown Pt doesn't Verified 05/02/25 18:36 know doxycycline Allergy Unknown hands Verified 05/02/25 18:36 probenecid Allergy Unknown Skin Verified 05/02/25 18:36 Reaction Vital Signs Vital Signs - 24 hr 05/02/25 17:15 05/02/25 17:31 05/02/25 18:51 Temperature 96.1 F L 96.2 F L 94.0 F L Pulse Rate 58 L 66 59 L Respiratory Rate 19 16 20 Blood Pressure 113/57 L 109/66 133/51 L Pulse Oximetry 98 99 98 Oxygen Delivery 05/02/25 19:06 05/02/25 20:00 05/02/25 20:00 Temperature 94.0 F L 95.3 F L Pulse Rate 59 L 48 L Respiratory Rate 20 14 Blood Pressure 136/54 L 113/48 L Pulse Oximetry 96 100 Oxygen Delivery Room Air 05/02/25 20:00 05/02/25 20:06 05/02/25 20:10 Temperature 94.2 F L 93.3 F L Pulse Rate 60 65 Respiratory Rate 16 Blood Pressure 141/67 H Pulse Oximetry 100 Oxygen Delivery 05/02/25 20:25 05/02/25 20:55 05/02/25 21:08 Temperature 94 F L 95.2 F L 95.3 F L Pulse Rate 48 L Respiratory Rate 14 Blood Pressure 113/48 L Pulse Oximetry 100 Oxygen Delivery 05/02/25 21:10 05/02/25 22:00 05/02/25 22:03 Temperature 95.7 F L 96.8 F L Pulse Rate 52 L Respiratory Rate Blood Pressure Pulse Oximetry Oxygen Delivery 05/03/25 00:00 05/03/25 00:00 05/03/25 00:00 Temperature 97.2 F L Pulse Rate 52 L 50 L Respiratory Rate 16 Blood Pressure 118/53 L Pulse Oximetry 100 Oxygen Delivery Room Air 05/03/25 01:04 05/03/25 01:23 05/03/25 02:00 Temperature 97.8 F 97.9 F Pulse Rate 51 L 52 L 54 L Respiratory Rate 16 16 Blood Pressure 116/53 L 118/54 L Pulse Oximetry 99 100 Oxygen Delivery 05/03/25 02:23 05/03/25 03:23 05/03/25 03:33 Temperature 98.0 F 98.0 F Pulse Rate 53 L 53 L Respiratory Rate 16 16 Blood Pressure 127/53 L 125/56 L Pulse Oximetry 100 100 Oxygen Delivery Room Air 05/03/25 03:57 05/03/25 04:00 05/03/25 04:00 Temperature 98 F 98 F Pulse Rate 56 L 54 L 53 L Respiratory Rate 16 16 Blood Pressure 120/58 L 120/58 L Pulse Oximetry 99 99 Oxygen Delivery 05/03/25 06:00 05/03/25 08:00 05/03/25 11:50 Temperature 97.7 F 97.4 F L Pulse Rate 55 L 58 L 56 L Respiratory Rate 20 16 Blood Pressure 128/55 L 131/66 Pulse Oximetry 94 97 Oxygen Delivery Exam 2 Narrative: Gen - NARD HEENT - normal nares Neck - neck brace in place Chest - clear anteriorly and in the flanks, nml RR CV - RRR S1/S2. Abd - soft. NT/ND. +BS. G-tube in place Ext - no pedal edema Neuro - alert and appropriate Skin - Warm, dry. Pallor Psy- normal affect Results Labs 05/03/25 04:04 05/03/25 04:04 Labs: Short CBC 05/02/25 05/02/25 05/03/25 Range/Units 14:48 22:06 04:04 WBC 10.5 H 10.2 H (4.5-10.0) K/mm3 Hgb 4.6 L* 6.8 L* 8.5 L (14.0-18.0) g/dL Hct 14.2 L* 20.5 L* 25.6 L (42.0-52.0) % Plt Count 330 328 (150-375) k/mm3 BMP 05/02/25 05/03/25 14:48 04:04 Sodium 131 L 132 L Potassium 5.0 4.9 Chloride 97 L 100 Carbon Dioxide 23 22 BUN 125 H* 121 H* Creatinine 3.57 H 3.51 H Glucose 142 H 112 H Calcium 8.7 8.7 Cardiac Enzymes 05/03/25 Range/Units 04:04 Total Creatine Kinase < 20 L (55-170) U/L Liver Function 05/02/25 05/03/25 Range/Units 14:48 04:04 Total Bilirubin 0.3 0.7 (0.2-1.3) mg/dL AST 31 25 (17-59) U/L ALT 24 20 (6-50) U/L Alkaline Phosphatase 104 101 (38-126) U/L Albumin 2.9 L 3.0 L (3.5-5.1) g/dL
[2025-05-03 16:29] LABS: Hematocrit 23.3 % (42.0-52.0); Hemoglobin 7.9 g/dL (14.0-18.0)
[2025-05-03] MEDS: AMPICILLIN SODIUM/SULBACTAM 1.5 GM in SODIUM CHLORIDE 0.9% IV 50 ML IVPB (17:56)
[2025-05-03] MEDS: AZITHROMYCIN IV 500 MG in SODIUM CHLORIDE 0.9% IV 250 ML IVPB (17:56)
[2025-05-03 18:03] LABS: Add Urine Microscopic? YES; Appearance Urine Clear (Clear); Glucose Urine UA Negative (Negative); Leukocyte Esterase Ur Negative LEU/UL (Negative); Nitrate Urine Negative (Negative); Non Pathogenic Casts 0-2; Specific Grav Ur 1.010 (1.001-1.035)
[2025-05-04] VITALS (23 sets, daily range): BP systolic 125–159; BP diastolic 56–98; PULSE 57–69; RESP 12–22; TEMP 36.2–36.6; O2SAT 93–100; BMI 23.3
[2025-05-04 04:40] LABS: Hematocrit 25.6 % (42.0-52.0); Hemoglobin 8.5 g/dL (14.0-18.0); Immature Granulocyte Percent A 0.6 % (0-0.5); Lymphocytes Absolute Auto 0.97 K/mm3 (0.9-3.2); Mean Corpuscular HGB Conc 33.2 g/dl (32-36); Mean Corpuscular Hemoglobin 31.1 pg (26-34); Mean Corpuscular Volume 93.8 fl (80-100); Nucleated Red Blood Cells Absolute Auto 0.000 K/mm3 (0.0-0.012); Nucleated Red Blood Cells Perc 0.0 % (0.0-0.2); Platelet Count Result 354 k/mm3 (150-375); Red Blood Count 2.73 M/mm3 (4.6-6.20); White Blood Count 11.6 K/mm3 (4.5-10.0)
--- NOTE | 2025-05-04 05:00 | ECG_ITS ---
Test Date: 2025-05-04 10:01:55 Measurements Intervals [place] Rate: 65 P: 11 SD: 211 QRS: -18 QRSD: 86 T: 16 QT: 463 QTc: 483 Interpretive Statements SINUS RHYTHM WITH FIRST DEGREE AV BLOCK PROLONGED QT INTERVAL Compared to ECG 05/03/2025 09:57:25 First degree AV block now present Prolonged QT interval now present Sinus bradycardia no longer present Electronically Signed On 05-05-2025 10:50:32 [employer] by Delfin Mayes M.D.
[2025-05-04 05:32] LABS: Alanine Aminotransferase 19 U/L (6-50); Albumin Level 3.7 g/dL (3.5-5.1); Alkaline Phosphatase 117 U/L (38-126); Anion Gap 13 mmol/L (4-12); Aspartate Amino Transferase 28 U/L (17-59); Bilirubin,Total 0.9 mg/dL (0.2-1.3); Calcium 9.1 mg/dL (8.4-10.2); Carbon Dioxide 22 mmol/L (22-30); Chloride 101 mmol/L (98-107); Estimated CRCL calculation 11 ml/min; Estimated Glomerular Filt Rate 16; Glucose 111 mg/dL (65-110); Magnesium 2.5 mg/dL (1.6-2.3); Potassium 4.1 mmol/L (3.4-5.0); Sodium 136 mmol/L (137-145); Total Protein 6.8 g/dL (6.3-8.2)
[2025-05-04 05:35] LABS: Blood Urea Nitrogen 122 mg/dL (9-20)
[2025-05-04] MEDS: FEBUXOSTAT 40 MG TABLET 80 MG FEED TUBE (09:55)
[2025-05-04] MEDS: SIMVASTATIN 20 MG TABLET 40 MG FEED TUBE (10:10)
[2025-05-04] MEDS: levETIRAcetam ORAL SOL 500 MG/5 ML UDC 750 MG FEED TUBE ×2 (10:10→20:55)
[2025-05-04] MEDS: FUROSEMIDE 40 MG TABLET FEED TUBE (10:10)
[2025-05-04] MEDS: AMPICILLIN SODIUM/SULBACTAM 1.5 GM in SODIUM CHLORIDE 0.9% IV 50 ML IVPB ×2 (10:11→21:00)
--- NOTE | 2025-05-04 10:59 | P.PNAN_ITS ---
Anes - Initial Pre Proc Eval Procedure: Operation Date: 05/04/25 14:00 Proposed Procedures p Esophagogastroduodenoscopy - Ryan Dewitt MD Date/Time: 05/04/25 10:59 Surgeon: Laurent metzger Oca, MD Pre Op Diagnosis: Anemia/GI Bleed Patient Data Age: 84 Gender: M Height: 1.63 m Weight: 61.5 kg Last Vital Signs Temp 36.4 C 05/04/25 08:00 Pulse 62 05/04/25 08:00 Resp 20 05/04/25 08:00 BP 146/56 H 05/04/25 08:00 Pulse Ox 97 05/04/25 08:45 O2 Del Method Room Air 05/04/25 09:34 O2 Flow Rate 1 05/04/25 03:25 FiO2 21 05/04/25 08:45 Allergies Allergy/AdvReac Type Severity Reaction Status Date / Time allopurinol Allergy Unknown Skin Verified 05/02/25 18:36 Reaction diclofenac Allergy Unknown Pt doesn't Verified 05/02/25 18:36 know doxycycline Allergy Unknown hands Verified 05/02/25 18:36 probenecid Allergy Unknown Skin Verified 05/02/25 18:36 Reaction Home Medications ?Medication ?Instructions ?Recorded ?Confirmed ?Type acetaminophen 160 mg/5 mL oral 650 mg (20.3125 mL) fee ding tube 04/24/25 05/02/25 Rx suspension (Nortemp) Q4H PRN Mild Pain (1-3) Or F ever #30 mL amlodipine 5 mg tablet (Norvasc) 5 mg feeding tube RICK LY #30 tabs 04/24/25 05/02/25 Rx apixaban 2.5 mg tablet (Eliquis) 2.5 mg feeding tube Q 12HR #60 tabs 04/24/25 05/02/25 Rx famotidine 20 mg tablet (Pepcid) 10 mg (1/2 x 20 mg) f eeding tube 04/24/25 05/02/25 Rx EVERY OTHER DAY #30 tabs febuxostat 80 mg tablet 80 mg feeding tube DAILY #90 tabs 04/24/25 05/02/25 Rx furosemide 40 mg tablet See Rx Instructions .Route . COMPLEX 04/24/25 05/02/25 History hydralazine 25 mg tablet 25 mg feeding tube Q8H #90 t abs 04/24/25 05/02/25 Rx levetiracetam 100 mg/mL oral 750 mg (7.5 mL) feeding t ube Q12HR 04/24/25 05/02/25 Rx solution #473 mL simvastatin 40 mg tablet See Rx Instructions .Route . COMPLEX 04/24/25 05/02/25 History labetalol 100 mg tablet 100 mg feeding tube Q12H 02/1605/02/25 History Laboratory Tests 05/03/25 05/03/25 05/03/25 11:10 11:11 11:11 WBC RBC Hgb Hct MCV MCH MCHC RDW Plt Count MPV Immature Gran % (Auto) Neut % (Auto) Lymph % (Auto) [place] % (Auto) Eos % (Auto) Baso % (Auto) Lymph # (Auto) [place] # (Auto) Eos # (Auto) Baso # (Auto) Abs Immat Gran (auto) Absolute Neuts (auto) Absolute Nucleated RBC Nucleated RBC % Sodium Potassium Chloride Carbon Dioxide Anion Gap BUN Creatinine Estim Creat Clear Calc Estimated GFR Glucose POC Capillary Glucose Calcium Phosphorus Magnesium Total Bilirubin AST ALT Alkaline Phosphatase Total Protein Albumin Urine Color Urine Appearance Urine pH Ur Specific [place] Urine Protein Urine Glucose (UA) Urine Ketones Ur Blood (Man) Urine Nitrate Urine Bilirubin Urine Urobilinogen Ur Leukocyte Esterase Urine RBC Urine WBC Ur Squamous Epith Cells Urine Bacteria Urine Casts U Random Total Protein Ur Random Sodium Ur Random Urea Urine Creatinine Protein/Creat Ratio 2 Nasal RSV Type A (PCR) Cancelled Nasal RSV Type B (PCR) Cancelled Chlamy pneumoniae PCR Cancelled Pending Adenovirus (PCR) Pending Adenovirus DNA Cancelled Human Bocavirus (KESHA) Cancelled B. pertussis DNA (PCR) Pending B.parapertussis DNA PCR Pending Coronavirus Type OC43 Cancelled Coronavirus OC43 (PCR) Pending Coronavirus Type HKU1 Cancelled Coronavirus HKU1 (PCR) Pending Coronavirus Type 229E Cancelled Coronavirus 229E (PCR) Pending Coronavirus Type NL63 Cancelled Coronavirus NL63 (PCR) Pending Human Metapneumovir PCR Cancelled Influenza A (RT-PCR) Negative (Negative) Influenza A (H1) PCR Influenza A (PCR) Influenza A (H1) RNA Influ A (/09) PCR Influenza A (H3) PCR Influenza Type A (PCR) Influenza B (RT-PCR) Negative (Negative) Influenza Type B (PCR) M.pneumoniae IgM Titer M. pneumoniae (PCR) M. pneumoniae DNA Parainfluenza PCR Parainfluenza 1 (PCR) Parainfluenza 2 (PCR) Parainfluenza 3 (PCR) Parainfluenza 3 RNA (PCR) Parainfluenza 4 (PCR) RSV (RT-PCR) Negative (Negative) RSV (PCR) Entero/Rhino (PCR) Rhino/Enterovirus (KESHA) SARS-CoV-2 (PCR) SARS-CoV-2 RNA (RT-PCR) Negative (Negative) Misc Test Comment 05/03/25 05/03/25 05/03/25 11:11 11:11 11:11 WBC RBC Hgb Hct MCV MCH MCHC RDW Plt Count MPV Immature Gran % (Auto) Neut % (Auto) Lymph % (Auto) [place] % (Auto) Eos % (Auto) Baso % (Auto) Lymph # (Auto) [place] # (Auto) Eos # (Auto) Baso # (Auto) Abs Immat Gran (auto) Absolute Neuts (auto) Absolute Nucleated RBC Nucleated RBC % Sodium Potassium Chloride Carbon Dioxide Anion Gap BUN Creatinine Estim Creat Clear Calc Estimated GFR Glucose POC Capillary Glucose Calcium Phosphorus Magnesium Total Bilirubin AST ALT Alkaline Phosphatase Total Protein Albumin Urine Color Urine Appearance Urine pH Ur Specific [place] Urine Protein Urine Glucose (UA) Urine Ketones Ur Blood (Man) Urine Nitrate Urine Bilirubin Urine Urobilinogen Ur Leukocyte Esterase Urine RBC Urine WBC Ur Squamous Epith Cells Urine Bacteria Urine Casts U Random Total Protein Ur Random Sodium Ur Random Urea Urine Creatinine Protein/Creat Ratio 2 Nasal RSV Type A (PCR) Nasal RSV Type B (PCR) Chlamy pneumoniae PCR Adenovirus (PCR) Adenovirus DNA Human Bocavirus (KESHA) B. pertussis DNA (PCR) B.parapertussis DNA PCR Coronavirus Type OC43 Coronavirus OC43 (PCR) Coronavirus Type HKU1 Coronavirus HKU1 (PCR) Coronavirus Type 229E Coronavirus 229E (PCR) Coronavirus Type NL63 Coronavirus NL63 (PCR) Human Metapneumovir PCR Pending Influenza A (RT-PCR) Influenza A (H1) PCR Pending Influenza A (PCR) Cancelled Influenza A (H1) RNA Cancelled Influ A () PCR Pending Influenza A (H3) PCR Cancelled Pending Influenza Type A (PCR) Pending Influenza B (RT-PCR) Influenza Type B (PCR) Pending M.pneumoniae IgM Titer M. pneumoniae (PCR) Pending M. pneumoniae DNA Cancelled Parainfluenza PCR Cancelled Parainfluenza 1 (PCR) Pending Parainfluenza 2 (PCR) Cancelled Pending Parainfluenza 3 (PCR) Pending Parainfluenza 3 RNA (PCR) Cancelled Parainfluenza 4 (PCR) Cancelled RSV (RT-PCR) RSV (PCR) Entero/Rhino (PCR) Rhino/Enterovirus (KESHA) SARS-CoV-2 (PCR) SARS-CoV-2 RNA (RT-PCR) Misc Test Comment 05/03/25 05/03/25 05/03/25 11:11 11:12 11:30 WBC RBC Hgb Hct MCV MCH MCHC RDW Plt Count MPV Immature Gran % (Auto) Neut % (Auto) Lymph % (Auto) [place] % (Auto) Eos % (Auto) Baso % (Auto) Lymph # (Auto) [place] # (Auto) Eos # (Auto) Baso # (Auto) Abs Immat Gran (auto) Absolute Neuts (auto) Absolute Nucleated RBC Nucleated RBC % Sodium Potassium Chloride Carbon Dioxide Anion Gap BUN Creatinine Estim Creat Clear Calc Estimated GFR Glucose POC Capillary Glucose 149 H mg/dl (65-105) Calcium Phosphorus Magnesium Total Bilirubin AST ALT Alkaline Phosphatase Total Protein Albumin Urine Color Urine Appearance Urine pH Ur Specific [place] Urine Protein Urine Glucose (UA) Urine Ketones Ur Blood (Man) Urine Nitrate Urine Bilirubin Urine Urobilinogen Ur Leukocyte Esterase Urine RBC Urine WBC Ur Squamous Epith Cells Urine Bacteria Urine Casts U Random Total Protein 185 mg/dL Ur Random Sodium 19 meq/L Ur Random Urea 713 MG/DL Urine Creatinine 44.0 mg/dL Protein/Creat Ratio 2 4.20 H mg/mg (0-0.20) Nasal RSV Type A (PCR) Nasal RSV Type B (PCR) Chlamy pneumoniae PCR Adenovirus (PCR) Adenovirus DNA Human Bocavirus (KESHA) B. pertussis DNA (PCR) B.parapertussis DNA PCR Coronavirus Type OC43 Coronavirus OC43 (PCR) Coronavirus Type HKU1 Coronavirus HKU1 (PCR) Coronavirus Type 229E Coronavirus 229E (PCR) Coronavirus Type NL63 Coronavirus NL63 (PCR) Human Metapneumovir PCR Influenza A (RT-PCR) Influenza A (H1) PCR Influenza A (PCR) Influenza A (H1) RNA Influ A (H1) PCR Influenza A (H3) PCR Influenza Type A (PCR) Influenza B (RT-PCR) Influenza Type B (PCR) Cancelled M.pneumoniae IgM Titer M. pneumoniae (PCR) M. pneumoniae DNA Parainfluenza PCR Parainfluenza 1 (PCR) Parainfluenza 2 (PCR) Parainfluenza 3 (PCR) Parainfluenza 3 RNA (PCR) Parainfluenza 4 (PCR) Pending RSV (RT-PCR) RSV (PCR) Pending Entero/Rhino (PCR) Pending Rhino/Enterovirus (KESHA) Cancelled SARS-CoV-2 (PCR) Pending SARS-CoV-2 RNA (RT-PCR) Cancelled Misc Test Comment Cancelled 05/03/25 05/03/25 05/03/25 16:22 17:44 18:12 WBC RBC Hgb 7.9 L g/dL (14.0-18.0) Hct 23.3 L % (42.0-52.0) MCV MCH MCHC RDW Plt Count MPV Immature Gran % (Auto) Neut % (Auto) Lymph % (Auto) [place] % (Auto) Eos % (Auto) Baso % (Auto) Lymph # (Auto) [place] # (Auto) Eos # (Auto) Baso # (Auto) Abs Immat Gran (auto) Absolute Neuts (auto) Absolute Nucleated RBC Nucleated RBC % Sodium Potassium Chloride Carbon Dioxide Anion Gap BUN Creatinine Estim Creat Clear Calc Estimated GFR Glucose POC Capillary Glucose 130 H mg/dl (65-105) Calcium Phosphorus Magnesium Total Bilirubin AST ALT Alkaline Phosphatase Total Protein Albumin Urine Color Yellow (Yellow) Urine Appearance Clear (Clear) Urine pH 7.5 (5.0-9.0) Ur Specific [place] 1.010 (1.001-1.035) Urine Protein 2+ H mg/dL (Negative) Urine Glucose (UA) Negative mg/dL (Negative) Urine Ketones Negative mg/dL (Negative) Ur Blood (Man) 1+ H (Negative) Urine Nitrate Negative (Negative) Urine Bilirubin Negative (Negative) Urine Urobilinogen 0.2 mg/dL (<2.0) Ur Leukocyte Esterase Negative BRIDGET/UL (Negative) Urine RBC 21-50 H /hpf (0-2) Urine WBC 0-5 /hpf (0-3) Ur Squamous Epith Cells None seen /hpf (Few) Urine Bacteria None seen /hpf Urine Casts 0-2 U Random Total Protein Ur Random Sodium Ur Random Urea Urine Creatinine Protein/Creat Ratio 2 Nasal RSV Type A (PCR) Nasal RSV Type B (PCR) Chlamy pneumoniae PCR Adenovirus (PCR) Adenovirus DNA Human Bocavirus (KESHA) B. pertussis DNA (PCR) B.parapertussis DNA PCR Coronavirus Type OC43 Coronavirus OC43 (PCR) Coronavirus Type HKU1 Coronavirus HKU1 (PCR) Coronavirus Type 229E Coronavirus 229E (PCR) Coronavirus Type NL63 Coronavirus NL63 (PCR) Human Metapneumovir PCR Influenza A (RT-PCR) Influenza A (H1) PCR Influenza A (PCR) Influenza A (H1) RNA Influ A (H1/09) PCR Influenza A (H3) PCR Influenza Type A (PCR) Influenza B (RT-PCR) Influenza Type B (PCR) M.pneumoniae IgM Titer M. pneumoniae (PCR) M. pneumoniae DNA Parainfluenza PCR Parainfluenza 1 (PCR) Parainfluenza 2 (PCR) Parainfluenza 3 (PCR) Parainfluenza 3 RNA (PCR) Parainfluenza 4 (PCR) RSV (RT-PCR) RSV (PCR) Entero/Rhino (PCR) Rhino/Enterovirus (KESHA) SARS-CoV-2 (PCR) SARS-CoV-2 RNA (RT-PCR) Misc Test Comment 05/04/25 05/04/25 00:11 04:09 WBC 11.6 H K/mm3 (4.5-10.0) RBC 2.73 L M/mm3 (4.6-6.20) Hgb 8.5 L g/dL (14.0-18.0) Hct 25.6 L % (42.0-52.0) MCV 93.8 fl (80-100) MCH 31.1 pg (26-34) MCHC 33.2 g/dl (32-36) RDW 16.0 H % (11.5-14.5) Plt Count 354 k/mm3 (150-375) MPV 10.7 H fl (7.4-10.4) Immature Gran % (Auto) 0.6 H % (0-0.5) Neut % (Auto) 79.6 H % (45.5-73.1) Lymph % (Auto) 8.4 L % (18.3-44.2) [place] % (Auto) 9.3 H % (2.6-8.5) Eos % (Auto) 1.5 % (0-4.4) Baso % (Auto) 0.6 % (0.2-1.2) Lymph # (Auto) 0.97 K/mm3 (0.9-3.2) [place] # (Auto) 1.1 H K/mm3 (0.1-0.6) Eos # (Auto) 0.2 K/mm3 (0-0.3) Baso # (Auto) 0.1 K/mm3 (0.0-0.1) Abs Immat Gran (auto) 0.07 H K/mm3 (0.00-0.031) Absolute Neuts (auto) 9.2 H K/mm3 (1.3-6.7) Absolute Nucleated RBC 0.000 K/mm3 (0.0-0.012) Nucleated RBC % 0.0 % (0.0-0.2) Sodium 136 L mmol/L (137-145) Potassium 4.1 mmol/L (3.4-5.0) Chloride 101 mmol/L (98-107) Carbon Dioxide 22 mmol/L (22-30) Anion Gap 13 H mmol/L (4-12) BUN 122 H* mg/dL (9-20) Creatinine 3.64 H mg/dL (0.7-1.3) Estim Creat Clear Calc 11 ml/min Estimated GFR 16 L (59 - ) Glucose 111 H mg/dL (65-110) POC Capillary Glucose 121 H mg/dl (65-105) Calcium 9.1 mg/dL (8.4-10.2) Phosphorus 6.5 H mg/dL (2.5-4.5) Magnesium 2.5 H mg/dL (1.6-2.3) Total Bilirubin 0.9 mg/dL (0.2-1.3) AST 28 U/L (17-59) ALT 19 U/L (6-50) Alkaline Phosphatase 117 U/L (38-126) Total Protein 6.8 g/dL (6.3-8.2) Albumin 3.7 g/dL (3.5-5.1) Urine Color Urine Appearance Urine pH Ur Specific [place] Urine Protein Urine Glucose (UA) Urine Ketones Ur Blood (Man) Urine Nitrate Urine Bilirubin Urine Urobilinogen Ur Leukocyte Esterase Urine RBC Urine WBC Ur Squamous Epith Cells Urine Bacteria Urine Casts U Random Total Protein Ur Random Sodium Ur Random Urea Urine Creatinine Protein/Creat Ratio 2 Nasal RSV Type A (PCR) Nasal RSV Type B (PCR) Chlamy pneumoniae PCR Adenovirus (PCR) Adenovirus DNA Human Bocavirus (KESHA) B. pertussis DNA (PCR) B.parapertussis DNA PCR Coronavirus Type OC43 Coronavirus OC43 (PCR) Coronavirus Type HKU1 Coronavirus HKU1 (PCR) Coronavirus Type 229E Coronavirus 229E (PCR) Coronavirus Type NL63 Coronavirus NL63 (PCR) Human Metapneumovir PCR Influenza A (RT-PCR) Influenza A (H1) PCR Influenza A (PCR) Influenza A (H1) RNA Influ A (H1/09) PCR Influenza A (H3) PCR Influenza Type A (PCR) Influenza B (RT-PCR) Influenza Type B (PCR) M.pneumoniae IgM Titer Pending M. pneumoniae (PCR) M. pneumoniae DNA Parainfluenza PCR Parainfluenza 1 (PCR) Parainfluenza 2 (PCR) Parainfluenza 3 (PCR) Parainfluenza 3 RNA (PCR) Parainfluenza 4 (PCR) RSV (RT-PCR) RSV (PCR) Entero/Rhino (PCR) Rhino/Enterovirus (KESHA) SARS-CoV-2 (PCR) SARS-CoV-2 RNA (RT-PCR) Misc Test Comment Patient hx anesthesia problems: none Family hx anesthesia problems: none Results Review: All pre-operative results and documents have been reviewed as part of the pre- operative evaluation. [facility] Past Medical History Medical History Acute on chronic anemia Melena Atherosclerosis of aorta Atrial fibrillation HTN (hypertension) Alcohol abuse Malignant neoplasm of prostate Dysphonia Chronic bilateral low back pain Encephalopathy Mixed hyperlipidemia NANDINI (acute kidney injury) Pneumonia Fluid overload Epistaxis r nares no bleeding site seen Gout, unspecified Gout CKD (chronic kidney disease) stage 4, GFR 15-29 ml/min Osteoarthrosis, localized, primary, involving lower leg Osteoarthrosis, localized, primary, involving hand Lumbar stenosis Anemia in chronic kidney disease Diabetes mellitus currently diet controlled, A1C 6.1% on 02/27/25 Surgical History Surgical History H/O cataract extraction History of appendectomy H/O laminectomy C3-C4 History of carpal tunnel release History of repair of rotator cuff H/O arthroscopy of knee Family History Family History Mother Hypertension, Onset Age: 72 Father Malignant neoplasm of prostate, Onset Age: 76 Social History Social History Social History: Caffeine- coffee Smoking packs per day: 1 Smoking cigarettes per day: 20.0 Years smoked: 40 Smoking pack-years: 40.00 Smoking status: Former smoker Tobacco type: cigarettes Second hand tobacco smoke exposure: No Additional smoking assessment comments: Quit 40 years ago Alcohol intake: current Drinks per week: 10 Substance use: never Substance use type: does not use Do You Feel Safe in your Home?: Yes Lack of Transportation: No Lack of Food: Never True Current Housing: I Have Housing Concerned About Future Housing: No Difficulty Paying Gas/Electric Bills: No Difficulty Paying for Meds: No Currently Unemployed: No Education: Trade/Vocational Certificate Difficulty w/ Childcare or Family Care: No Gender identity (if verbalized by the patient): Male Spiritual care concerns: No Anes - Eval Final PreProcedure Day of Procedure 05/04/25 10:59 Patient weight: normal Heart: regular rate and rhythm Lungs: clear to auscultation Airway: Mallampati scale class III, special considerations poor extension and other (aspen collar) Neurological: alert and oriented Last oral intake: >/= 8 hours ASA classification: IV Emergent: no Anesthetic plan: proceed Anesthesia type and monitoring: general GIVS and standard monitoring Results Review: All pre-operative results and documents have been reviewed as part of the pre- operative evaluation. Informed Consent: The patient's anesthetic plan and its attendant risks and benefits were discussed with the patient/family/POA. Questions were solicited and answers provided to the satisfaction of the patient/family/POA.
[2025-05-04] MEDS: LACTATED RINGERS 1,000 ML 150 ML IV CONT (11:08)
--- NOTE | 2025-05-04 15:24 | PM.IMPN ---
Progress Note: A&P Assessment and Plan (1) Atrial fibrillation: Qualifiers: Atrial fibrillation type: unspecified chronic Qualified Code(s): I48.20 - Chronic atrial fibrillation, unspecified Code(s): I48.91 - Unspecified atrial fibrillation Status: Chronic (2) Alcohol abuse: Code(s): F10.10 - Alcohol abuse, uncomplicated Status: Acute (3) Acute kidney injury superimposed on CKD: Code(s): N17.9 - Acute kidney failure, unspecified; N18.9 - Chronic kidney disease, unspecified Status: Acute (4) Anemia: Code(s): D64.9 - Anemia, unspecified Status: Acute (5) Shortness of breath: Code(s): R06.02 - Shortness of breath Status: Acute Plan 84 y/o M with PMH of alcohol use disorder, hypertension, prostate cancer, hyperlipidemia, gout, CKD stage IV, seizures, dysphagia S/P peg placement, atrial fibrillation on anticoagulation, anemia of chronic disease, and type 2 diabetes presents here with anemia and bradycardia, melena, shortness of breath x2 days. The patient presents here from [facility] via EMS on 05/02 for further evaluation of low hemoglobin and bradycardia. Patient currently at [facility] after a recent admission at [facility] from 04/12/25 to 04/24/25. Seen at that time for altered mental status/new onset seizure disorder. Seizure suspected to be related to alcohol use or withdrawal, started on Keppra 750 mg twice daily. Patient additionally sustained a type 2 odontoid fracture for which he saw neuro surgery and was placed in an [place] collar, follow-up with their service in [address] [facility] for PT/OT. Patient also failed MBS on 04/17 for which a PEG tube was placed on 04/20 and he was started on tube feeds, strict NPO, and to continue speech therapy at [facility]. Patient also developed new AFib during this admission for which he was restarted on labetalol for concurrent hypertension and he was started on anticoagulation, Eliquis. Additionally treated for CAP for which he did not require supplemental oxygen. Has since been at [facility] and has had un unremarkable recovery up to today when his Hgb was found to be 5.2, verified via repeat (4.8). Patient also noted to be bradycardic at 54. Per the patient's , he has been experiencing dark tarry stools for the past 4 days. Initial VS at presentation: 97.9? F, HR 54, R 19, 111/54, and 100% on RA. ED workup showed: WBC 10.5, hemoglobin 4.6 (previously 7.5 on 04/25), INR 1.6, sodium 131, creatinine 3.57 and GFR 17 (previously 2.87 and GFR 21 on 04/25), glucose 142, albumin 2.9. ----- Shortness of breath -reported of shortness of breath transiently on 05/03/2025. Chest CT demonstrated diffuse lung disease likely a combination of moderate pulmonary edema and pneumonia, moderate-size pleural effusions, ascites -patient did received 3 units PRBC. Quad viral screen negative. Respiratory pathogen panel pending. -required O2 transiently. Has been breathing well since on room air. 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 Melena, acute anemia on chronic anemia -GI consulted. Status post 3 units PRBC. 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 Lesion was cauterized with APC. GI recommended restarting tube feeding, holding Eliquis for 7 days. Discontinue Protonix Dysphagia status post PEG placement -speech therapy consulted, modified barium swallow completed on 05/04/2025 after EGD, demonstrates pharyngeal dysphagia with laryngeal penetration without aspiration. Feeding tubes restarted, 1 on 1 oral feeding per speech therapy with continued evaluations and treatment. NNADINI and CKD -recent baseline around 3.0. Presents to serum creatinine 3.49, no improvement after 3 unit PRBC and 1 L of lactated Ringer's -nephrology consultation. Appreciate recommendations. Hamilton catheter in place. -continue intake/output monitoring and daily weights. Hypertension -at goal. Continue to hold [employer]ACEUT[employer] WORKER amlodipine and hydralazine after GI bleed, start judiciously. 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 b.i.d. Atrial fibrillation on anticoagulation, bradycardia -currently in sinus bradycardia. Hold PHARMACEUTICAL WORKER labetalol -continue telemetry [id number] diabetes mellitus -Accu-Cheks q.6 hours with low-dose insulin sliding scale and hypoglycemia protocol Type 2 fracture of odontoid process -continue [place] collar -continue PT/OT Leukocytosis -mild, continue to trend. Afebrile. Patient appears nontoxic, no evidence of active infection Hypothermia -on admission, received heating blanket/Alma Hugger, could have been due to anemia. Resolved. ----- Speech therapy, thickened liquids. Tube feeds/dietitian consult Hold PHARMACEUTICAL WORKER Eliquis, SCDs Received 3 units PRBC in 1 L lactated Ringer's on admission. Saline lock IV Peripheral IV, PEG tube, Hamilton catheter DNR Transfer to medical floor with telemetry Time Spent With Patient Time: Greater than 55 minutes spent on evaluations, review of imaging, [id number] time, discussion with nursing and patient's family. Subjective Date/time seen: 05/04/25 15:24 Interval history: No major acute overnight events. Patient complains of feeling thirsty and wants to drink. Denies chest pain. Review of Systems Review of Systems: All systems reviewed & are unremarkable except as noted in HPI and below (Subjective) Exam Const: General: comfortable and no acute distress HENMT: Other: Very dry mucous membranes Neck: Other: In [place] collar Resp: Effort & Inspection: normal respiratory effort Auscultation: clear to auscultation bilaterally Cardio: Rate: regular rate Rhythm: regular rhythm GI: GI Palp: Yes Soft to palpation and No Tenderness to palpation present (GI) Extrem: General: no edema Objective Data Vital Signs Vital Signs: Vital Signs - 24 hr 05/03/25 16:00 05/03/25 16:00 05/03/25 16:00 Temperature 97.4 F L Pulse Rate 62 59 L Respiratory Rate 16 Blood Pressure 134/57 L Pulse Oximetry 95 98 Oxygen Delivery Room Air Oxygen Flow Rate Fraction of Inspired Oxygen 05/03/25 18:00 05/03/25 19:57 05/03/25 20:00 Temperature 97.6 F Pulse Rate 58 L 58 L Respiratory Rate 16 Blood Pressure 130/57 L Pulse Oximetry 93 93 Oxygen Delivery Room Air Oxygen Flow Rate Fraction of Inspired Oxygen 05/03/25 20:00 05/03/25 22:00 05/03/25 23:39 Temperature Pulse Rate 58 L 58 L Respiratory Rate Blood Pressure Pulse Oximetry 93 Oxygen Delivery Room Air Oxygen Flow Rate Fraction of Inspired Oxygen 05/04/25 00:00 05/04/25 00:00 05/04/25 02:00 Temperature 97.4 F L Pulse Rate 59 L 57 L 64 Respiratory Rate 12 Blood Pressure 137/57 L Pulse Oximetry 96 Oxygen Delivery Oxygen Flow Rate Fraction of Inspired Oxygen 05/04/25 02:25 05/04/25 03:25 05/04/25 03:31 Temperature 97.5 F L Pulse Rate 63 Respiratory Rate 16 Blood Pressure 151/59 H Pulse Oximetry 98 98 99 Oxygen Delivery Nasal Cannula Nasal Cannula Oxygen Flow Rate 1 1 Fraction of Inspired Oxygen 05/04/25 04:00 05/04/25 06:00 05/04/25 08:00 Temperature 97.6 F Pulse Rate 63 68 62 Respiratory Rate 20 Blood Pressure 146/56 H Pulse Oximetry 100 Oxygen Delivery Oxygen Flow Rate Fraction of Inspired Oxygen 05/04/25 08:00 05/04/25 08:45 05/04/25 09:34 Temperature Pulse Rate Respiratory Rate Blood Pressure Pulse Oximetry 98 97 Oxygen Delivery Nasal Cannula Room Air Room Air Oxygen Flow Rate 1 Fraction of Inspired Oxygen 21 05/04/25 11:05 05/04/25 11:32 05/04/25 11:42 Temperature 97.9 F Pulse Rate 66 64 63 Respiratory Rate 18 18 18 Blood Pressure 159/98 H 133/62 126/59 L Pulse Oximetry 93 98 98 Oxygen Delivery Room Air Simple Face Mask Simple Face Mask Oxygen Flow Rate 10 4 Fraction of Inspired Oxygen 05/04/25 11:52 05/04/25 12:00 05/04/25 12:02 Temperature Pulse Rate 63 62 Respiratory Rate 20 20 Blood Pressure 125/63 134/65 Pulse Oximetry 98 98 94 Oxygen Delivery Simple Face Mask Room Air Room Air Oxygen Flow Rate 2 Fraction of Inspired Oxygen 05/04/25 12:10 Temperature Pulse Rate 62 Respiratory Rate 20 Blood Pressure 137/89 Pulse Oximetry 94 Oxygen Delivery Room Air Oxygen Flow Rate Fraction of Inspired Oxygen Intake/Output Intake/Output: Intake & Output 05/01/25 05/02/25 05/03/25 05/04/25 23:59 23:59 23:59 23:59 Intake Total 886.7 700 50 Output Total 1350 1150 Balance 886.7 -546 -1100 Meds/Results Medications: Active Medications Generic Name Dose Route Start Last Admin Trade Name Freq PRN Reason Stop Dose Admin Acetaminophen 650 mg 05/02/25 20:49 Acetaminophen Elixir 325 Mg/10.15 Ml Udc FEED TUBE Q4H PRN Mild Pain (1-3) or Fever Amlodipine Besylate 5 mg 05/03/25 09:00 05/03/25 10:59 Amlodipine Besylate 5 Mg Tablet FEED TUBE Not Given On Hold: 05/03/25 09:41 DAILY OLENA Dextrose 12.5 gm 05/02/25 20:20 Dextrose 50% 25 Gm/50 Ml Syringe IV PUSH PRN PRN Hypoglycemia Protocol Febuxostat 80 mg 05/04/25 09:00 05/04/25 09:55 Febuxostat 40 Mg Tablet FEED TUBE 80 mg DAILY OLENA Administration Furosemide 40 mg 05/03/25 09:00 05/04/25 10:10 Furosemide 40 Mg Tablet FEED TUBE 40 mg DAILY OLENA Administration Glucagon 1 mg 05/02/25 20:20 Glucagon For Inj 1 Mg Vial IM PRN PRN Hypoglycemia Protocol Glucose 15 gm 05/02/25 20:20 Glucose Oral Gel 15 Gm Of Glucse In 37.5 Gm Tube PO PRN PRN Hypoglycemia Protocol Hydralazine HCl 25 mg 05/02/25 22:00 05/03/25 05:12 Hydralazine Hcl 25 Mg Tablet FEED TUBE Not Given On Hold: 05/03/25 09:41 Q8H OLNEA Dextrose 1,000 mls @ 100 mls/hr 05/02/25 20:20 Dextrose 5% 1,000 Ml IVPB PRN PRN Hypoglycemia Protocol Ampicillin Sodium/Sulbactam 50 mls @ 100 mls/hr 05/03/25 15:55 05/04/25 11:08 Sodium 1.5 gm/ Sodium Chloride IVPB Infused Q12HR OLENA Infusion Azithromycin 500 mg/ Sodium 250 mls @ 250 mls/hr 05/03/25 16:00 05/03/25 17:56 Chloride IVPB 05/05/25 16:59 250 mls/hr Q24H OLENA Administration Lactated Ringer's 1,000 mls @ 150 mls/hr 05/04/25 08:15 05/04/25 12:02 Lr - Lactated Ringers Iv IV CONT Infused .Q6H40M OLENA Infusion Insulin Aspart 2 - 5 units 05/03/25 00:00 05/04/25 13:22 Insulin Aspart (*Bkc) 100 Units/Ml SUB-Q Not Given Q6HR OLENA Protocol Levetiracetam 750 mg 05/02/25 21:00 05/04/25 10:10 Levetiracetam Oral Pallavi 500 Mg/5 Ml Udc FEED TUBE 750 mg Q12HR OLENA Administration Miscellaneous Information 1 each 05/03/25 00:01 Pharmacy Is Out Of Stock On Febuxostat 40 Mg, Can Pt Use From Home? Pharmacy Will Have Mor XX 06/02/25 00:00 CLARIFY OLENA Pantoprazole Sodium 40 mg 05/03/25 06:00 05/03/25 20:04 Pantoprazole Sodium Iv 40 Mg Vial IV PUSH 40 mg Q12H OLENA Administration Simvastatin 40 mg 05/03/25 09:00 05/04/25 10:10 Simvastatin 20 Mg Tablet FEED TUBE 40 mg DAILY OLENA Administration Radiology Results: ITS Impressions Chest X-Ray 05/03/25 08:28 IMPRESSION: 1. Interstitial pulmonary edema and/or pneumonitis. 2. Bibasilar atelectasis and/or pleural effusions. Chest CT 05/03/25 09:17 IMPRESSION: 1. Diffuse lung disease, likely a combination of moderate pulmonary edema and pneumonia. 2. Moderate-sized pleural effusions. 3. Ascites. Renal Ultrasound 05/03/25 11:21 IMPRESSION: 1. No hydronephrosis. Modified Barium Swallow 05/04/25 13:53 IMPRESSION: Pharyngeal dysphagia with laryngeal penetration without aspiration. Please correlate with speech pathologist findings and specific feeding recommendations. Labs Labs: Laboratory Results - last 24 hr 05/03/25 05/03/25 05/03/25 16:22 17:44 18:12 WBC RBC Hgb 7.9 L Hct 23.3 L MCV MCH MCHC RDW Plt Count MPV Immature Gran % (Auto) Neut % (Auto) Lymph % (Auto) Brooke % (Auto) Eos % (Auto) Baso % (Auto) Lymph # (Auto) Brooke # (Auto) Eos # (Auto) Baso # (Auto) Abs Immat Gran (auto) Absolute Neuts (auto) Absolute Nucleated RBC Nucleated RBC % Sodium Potassium Chloride Carbon Dioxide Anion Gap BUN Creatinine Estim Creat Clear Calc Estimated GFR Glucose POC Capillary Glucose 130 H Calcium Phosphorus Magnesium Total Bilirubin AST ALT Alkaline Phosphatase Total Protein Albumin Urine Color Yellow Urine Appearance Clear Urine pH 7.5 Ur Specific [place] 1.010 Urine Protein 2+ H Urine Glucose (UA) Negative Urine Ketones Negative Ur Blood (Man) 1+ H Urine Nitrate Negative Urine Bilirubin Negative Urine Urobilinogen 0.2 Ur Leukocyte Esterase Negative Urine RBC 21-50 H Urine WBC 0-5 Ur Squamous Epith Cells None seen Urine Bacteria None seen Urine Casts 0-2 05/04/25 05/04/25 00:11 04:09 WBC 11.6 H RBC 2.73 L Hgb 8.5 L Hct 25.6 L MCV 93.8 MCH 31.1 MCHC 33.2 RDW 16.0 H Plt Count 354 MPV 10.7 H Immature Gran % (Auto) 0.6 H Neut % (Auto) 79.6 H Lymph % (Auto) 8.4 L Brooke % (Auto) 9.3 H Eos % (Auto) 1.5 Baso % (Auto) 0.6 Lymph # (Auto) 0.97 Brooke # (Auto) 1.1 H Eos # (Auto) 0.2 Baso # (Auto) 0.1 Abs Immat Gran (auto) 0.07 H Absolute Neuts (auto) 9.2 H Absolute Nucleated RBC 0.000 Nucleated RBC % 0.0 Sodium 136 L Potassium 4.1 Chloride 101 Carbon Dioxide 22 Anion Gap 13 H BUN 122 H* Creatinine 3.64 H Estim Creat Clear Calc 11 Estimated GFR 16 L Glucose 111 H POC Capillary Glucose 121 H Calcium 9.1 Phosphorus 6.5 H Magnesium 2.5 H Total Bilirubin 0.9 AST 28 ALT 19 Alkaline Phosphatase 117 Total Protein 6.8 Albumin 3.7 Urine Color Urine Appearance Urine pH Ur Specific [place] Urine Protein Urine Glucose (UA) Urine Ketones Ur Blood (Man) Urine Nitrate Urine Bilirubin Urine Urobilinogen Ur Leukocyte Esterase Urine RBC Urine WBC Ur Squamous Epith Cells Urine Bacteria Urine Casts
--- NOTE | 2025-05-04 15:44 | PCOTNOTE ---
Attempted to see pt for OT evaluation however pt was off the floor for a procedure. Will continue to follow.
[2025-05-04] MEDS: AZITHROMYCIN IV 500 MG in SODIUM CHLORIDE 0.9% IV 250 ML IVPB (16:47)
--- NOTE | 2025-05-04 17:06 | P.PNNP_ITS ---
Progress Note: A&P Assessment and Plan (1) Acute kidney injury: Code(s): N17.9 - Acute kidney failure, unspecified Status: Acute Assessment and Plan: * a bit worse from baseline (but has been this high before) * suspect due a few issues: * prerenal factors * severe anemia * pneumonia * other * evaluation to date noted: * renal u/s without obstruction * urine electrolytes are prerenal * UA without evidence of infection * proteinuria noted * CPK low * still making good urine output * follow trend of repeat labs and UOP (2) Stage 4 chronic kidney disease: Code(s): N18.4 - Chronic kidney disease, stage 4 (severe) Status: Chronic Assessment and Plan: * fluctuates to extremes at baseline... 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 with small amount of hematin in the lumen * s/p cauterization with APC * GI recommendations noted * holding Eliquis for 7 days * d/c'd PPI * follow trend of H/H (4) Shortness of breath: Code(s): R06.02 - Shortness of breath Status: Acute Assessment and Plan: * clinically seems better * CT imaging noted: * moderate pulmonary edema * pneumonia * pleural effusions * ascites * viral testing for influenza/RSV/COVID negative * remains on oral diuretic therapy * off oxygen at this time * follow respiratory status (5) Anemia: Code(s): D64.9 - Anemia, unspecified Status: Acute Assessment and Plan: * partly related to NANDINI, CKD, and complicated by #3 * follow trend of H/H * consider THEO (6) Pneumonia: Code(s): J18.9 - Pneumonia, unspecified organism Status: Acute Assessment and Plan: * as noted by admission imaging * on antibiotics * follow culture data (negative to date) (7) Atrial fibrillation: Qualifiers: Atrial fibrillation type: unspecified chronic Qualified Code(s): I48.20 - Chronic atrial fibrillation, unspecified Code(s): I48.91 - Unspecified atrial fibrillation Status: Chronic Assessment and Plan: * rate control strategy * Eliquis on hold (see #3) (8) Hyponatremia: Code(s): E87.1 - Hypo-osmolality and hyponatremia Status: Acute Assessment and Plan: * improving * likely related to NANDINI on CKD * follow trend (9) Dysphagia: Qualifiers: Dysphagia type: unspecified Qualified Code(s): R13.10 - Dysphagia, unspecified Code(s): R13.10 - Dysphagia, unspecified Status: Chronic Assessment and Plan: * s/p PEG tube placement * speech therapy recommendations and MBS noted * on tube feedings (10) Hypertension: Code(s): I10 - Essential (primary) hypertension Status: Chronic Assessment and Plan: * reasonable control * slowly resume BP medications * follow trend of hemodyamics (11) Diabetes mellitus: Qualifiers: Diabetes mellitus type: type 2 Diabetes mellitus mcc insulin use: without manager intermediate use Diabetes mellitus complication status: with kidney complications Diabetes mellitus complication detail: with chronic kidney disease Chronic kidney disease stage: stage 4 (severe) Qualified Code(s): E 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; N18.4 - Chronic kidney disease, stage 4 (severe) Code(s): E11.9 - Type 2 diabetes mellitus without complications Status: Chronic Assessment and Plan: * follow accu-cheks * glycemic control per hospitalist (12) Type II fracture of odontoid process: Qualifiers: Encounter type: subsequent encounter Fracture type: closed Fracture alignment: nondisplaced Fracture healing: with routine healing Qualified Code(s): S12.112D - Nondisplaced Type II dens fracture, subsequent encounter for fracture with routine healing Code(s): S12.110A - Anterior displaced Type II dens fracture, initial encounter for closed fracture Status: Chronic Assessment and Plan: * as noted on previous imaging * conservative therapy per Neurosurgery * Benkelman collar in place * ongoing PT/OT Will continue to follow. L Subjective Date/time seen: 05/04/25 17:06 Interval history: Follow-up for acute kidney injury/acute renal failure on chronic kidney disease. Chart reviewed -- assuming care from Dr. Pena; s/p EGD earlier today with findings/interventions noted; no other acute issues/events overnight or earlier this morning; major complaint is that of being thirsty. Exam 2 Narrative: General: elderly but WD/WN male in NAD; Benkelman collar in place Heart: normal S1 and S2; no rub Lungs: clear to auscultation Abdomen: soft, nontender, nondistended, positive bowel sounds Extremities: no cyanosis or clubbing; no edema Skin: warm and dry Objective Data Vital Signs Vital Signs: Vital Signs Temp Pulse Resp BP Pulse Ox O2 Del Method O2 Flow Rate 05/04/25 16:00 97.6 F 64 20 155/61 H 95 05/04/25 14:00 68 05/04/25 12:10 62 20 137/89 94 Room Air 05/04/25 12:02 62 20 134/65 94 Room Air 05/04/25 12:00 98 Room Air 05/04/25 11:52 63 20 125/63 98 Simple Face Mask 2 05/04/25 11:42 63 18 126/59 L 98 Simple Face Mask 4 05/04/25 11:32 64 18 133/62 98 Simple Face Mask 10 05/04/25 11:05 97.9 F 66 18 159/98 H 93 Room Air 05/04/25 10:00 64 05/04/25 09:34 Room Air 05/04/25 08:45 97 Room Air 05/04/25 08:00 62 05/04/25 08:00 98 Nasal Cannula 1 05/04/25 08:00 97.6 F 62 20 146/56 H 100 05/04/25 06:00 68 05/04/25 04:00 63 05/04/25 03:31 97.5 F L 63 16 151/59 H 99 05/04/25 03:25 98 Nasal Cannula 1 05/04/25 02:25 98 Nasal Cannula 1 05/04/25 02:00 64 05/04/25 00:00 57 L 05/04/25 00:00 97.4 F L 59 L 12 137/57 L 96 05/03/25 23:39 93 Room Air 05/03/25 22:00 58 L 05/03/25 20:00 58 L 05/03/25 20:00 93 Room Air 05/03/25 19:57 97.6 F 58 L 16 130/57 L 93 Intake/Output Intake/Output: Intake & Output 05/01/25 05/02/25 05/03/25 05/04/25 23:59 23:59 23:59 23:59 Intake Total 886.7 950 110 Output Total 1350 1650 Balance 886.7 -400 -1540 Meds/Results Medications: Active Medications Generic Name Dose Route Start Last Admin Trade Name Freq PRN Reason Stop Dose Admin Acetaminophen 650 mg 05/02/25 20:49 Acetaminophen Elixir 325 Mg/10.15 Ml Udc FEED TUBE Q4H PRN Mild Pain (1-3) or Fever Dextrose 12.5 gm 05/02/25 20:20 Dextrose 50% 25 Gm/50 Ml Syringe IV PUSH PRN PRN Hypoglycemia Protocol Febuxostat 80 mg 05/04/25 09:00 05/04/25 09:55 Febuxostat 40 Mg Tablet FEED TUBE 80 mg DAILY OLENA Administration Furosemide 40 mg 05/03/25 09:00 05/04/25 10:10 Furosemide 40 Mg Tablet FEED TUBE 40 mg DAILY OLENA Administration Glucagon 1 mg 05/02/25 20:20 Glucagon For Inj 1 Mg Vial IM PRN PRN Hypoglycemia Protocol Glucose 15 gm 05/02/25 20:20 Glucose Oral Gel 15 Gm Of Glucse In 37.5 Gm Tube PO PRN PRN Hypoglycemia Protocol Dextrose 1,000 mls @ 100 mls/hr 05/02/25 20:20 Dextrose 5% 1,000 Ml IVPB PRN PRN Hypoglycemia Protocol Ampicillin Sodium/Sulbactam 50 mls @ 100 mls/hr 05/03/25 15:55 05/04/25 11:08 Sodium 1.5 gm/ Sodium Chloride IVPB Infused Q12HR OLENA Infusion Azithromycin 500 mg/ Sodium 250 mls @ 250 mls/hr 05/03/25 16:00 05/04/25 16:47 Chloride IVPB 05/05/25 16:59 250 mls/hr Q24H OLENA Administration Lactated Ringer's 1,000 mls @ 150 mls/hr 05/04/25 08:15 05/04/25 12:02 Lr - Lactated Ringers Iv IV CONT Infused .Q6H40M OLENA Infusion Insulin Aspart 2 - 5 units 05/03/25 00:00 05/04/25 17:37 Insulin Aspart (*Bkc) 100 Units/Ml SUB-Q Not Given Q6HR [facility] Protocol Levetiracetam 750 mg 05/02/25 21:00 05/04/25 10:10 Levetiracetam Oral Pallavi 500 Mg/5 Ml Udc FEED TUBE 750 mg Q12HR OLENA Administration Miscellaneous Information 1 each 05/03/25 00:01 Pharmacy Is Out Of Stock On Febuxostat 40 Mg, Can Pt Use From Home? Pharmacy Will Have Mor XX 06/02/25 00:00 CLARIFY OLENA Simvastatin 40 mg 05/03/25 09:00 05/04/25 10:10 Simvastatin 20 Mg Tablet FEED TUBE 40 mg DAILY OLENA Administration Radiology Results: ITS Impressions Chest X-Ray 05/03/25 08:28 IMPRESSION: 1. Interstitial pulmonary edema and/or pneumonitis. 2. Bibasilar atelectasis and/or pleural effusions. Chest CT 05/03/25 09:17 IMPRESSION: 1. Diffuse lung disease, likely a combination of moderate pulmonary edema and pneumonia. 2. Moderate-sized pleural effusions. 3. Ascites. Renal Ultrasound 05/03/25 11:21 IMPRESSION: 1. No hydronephrosis. Modified Barium Swallow 05/04/25 13:53 IMPRESSION: Pharyngeal dysphagia with laryngeal penetration without aspiration. Please correlate with speech pathologist findings and specific feeding recommendations. Labs Labs: Laboratory Tests 05/04/25 04:09 05/04/25 04:09 Calcium 9.1 Phosphorus 6.5 H Magnesium 2.5 H Total Bilirubin 0.9 AST 28 ALT 19 Alkaline Phosphatase 117 Total Protein 6.8 Albumin 3.7
[2025-05-05] VITALS (10 sets, daily range): BP systolic 143–173; BP diastolic 59–64; PULSE 61–92; RESP 16–20; TEMP 35.9–36.7; O2SAT 93–98
--- NOTE | 2025-05-05 07:54 | WPDANESPN ---
Anes - Prog Note Post-Op Date/Time: 05/05/25 07:54 Cardiovascular status: normal Respiratory status: normal Airway patency: baseline Mental status: baseline Post-Op hydration status: normal Vital Signs: Last Vital Signs Temp 36.4 C 05/05/25 04:00 Pulse 68 05/05/25 06:00 Resp 18 05/05/25 04:00 BP 165/61 H 05/05/25 04:00 Pulse Ox 96 05/05/25 04:00 O2 Del Method Room Air 05/04/25 20:00 O2 Flow Rate 2 05/04/25 11:52 FiO2 21 05/04/25 08:45 Pain Score (VAS): 2 I/O: Intake & Output 05/04/25 05/04/25 05/05/25 15:59 23:59 07:59 Intake Total 50 110 240 Output Total 500 1100 Balance 62 -905 -268 Laboratory Tests 05/04/25 04:09 05/04/25 04:09 05/05/25 05/05/25 00:17 06:58 POC Capillary Glucose 186 H 174 H Post-procedural complaints: none Patient Feedback: Patient satisfied with anesthetic care.
[2025-05-05 09:24] LABS: Hematocrit 27.1 % (42.0-52.0); Hemoglobin 9.1 g/dL (14.0-18.0); Immature Granulocyte Percent A 0.7 % (0-0.5); Lymphocytes Absolute Auto 0.70 K/mm3 (0.9-3.2); Mean Corpuscular HGB Conc 33.6 g/dl (32-36); Mean Corpuscular Hemoglobin 31.4 pg (26-34); Mean Corpuscular Volume 93.4 fl (80-100); Nucleated Red Blood Cells Absolute Auto 0.000 K/mm3 (0.0-0.012); Nucleated Red Blood Cells Perc 0.0 % (0.0-0.2); Platelet Count Result 453 k/mm3 (150-375); Red Blood Count 2.90 M/mm3 (4.6-6.20); White Blood Count 14.1 K/mm3 (4.5-10.0)
[2025-05-05 09:53] LABS: Alanine Aminotransferase 22 U/L (6-50); Albumin Level 3.7 g/dL (3.5-5.1); Alkaline Phosphatase 115 U/L (38-126); Anion Gap 16 mmol/L (4-12); Aspartate Amino Transferase 30 U/L (17-59); Bilirubin,Total 0.7 mg/dL (0.2-1.3); Blood Urea Nitrogen 115 mg/dL (9-20); Calcium 9.2 mg/dL (8.4-10.2); Carbon Dioxide 22 mmol/L (22-30); Chloride 99 mmol/L (98-107); Estimated CRCL calculation 13 ml/min; Estimated Glomerular Filt Rate 18; Glucose 185 mg/dL (65-110); Magnesium 2.2 mg/dL (1.6-2.3); Potassium 3.2 mmol/L (3.4-5.0); Sodium 137 mmol/L (137-145); Total Protein 7.0 g/dL (6.3-8.2)
[2025-05-05] MEDS: SIMVASTATIN 20 MG TABLET 40 MG FEED TUBE (10:06)
[2025-05-05] MEDS: FEBUXOSTAT 40 MG TABLET 80 MG FEED TUBE (10:06)
[2025-05-05] MEDS: FUROSEMIDE 40 MG TABLET FEED TUBE (10:06)
[2025-05-05] MEDS: levETIRAcetam ORAL SOL 500 MG/5 ML UDC 750 MG FEED TUBE ×2 (10:06→22:25)
[2025-05-05] MEDS: AMOXICILLIN/CLAVULANATE K SUSP 500 MG/6.25 ML UD PO ×2 (10:07→22:28)
--- NOTE | 2025-05-05 10:37 | PCNFU ---
Nutrition Follow-Up Complete: Inadequate energy intake related to NPO status as evidenced by current diet orders Meet estimated needs - Goal is being met with tube feeding Goal: Pt current nutrition is Nepro @ 40 ml/h with 30 ml flushes q4 h. Nutrition recommendation: Increase free water flushes to 100 ml q 4 hours because of labs. Continue Nepro @ current rate. Last recorded weight is 59 kg. Bowel Motility: Last BM 05/02. May benefit from bowel regimen Labs Reviewed: Hgb 9.1, Hct 27.1, K+ 3.2, BUN 115, Cre 3.29, Glu 185, PO4 5.8 Meds Noted: Lasix Skin: No skin issues noted Additional Notes: No IVFs on. PO4 remains elevated. Discussed with MD to increase flushes to 100 ml q 4 h. Nepro @ 40 ml/h provides 1584 kcal, 71 g protein, 639 ml free water. 1239 ml free water with flushes. Meets needs @ 27 kcal/kg, 1.2 g protein/kg. Adequate for needs. Will continue to monitor. Monitor tube feeding, tolerance, wt, labs. Follow up every sunday and sunday
--- NOTE | 2025-05-05 12:01 | P.PNNP_ITS ---
Progress Note: A&P Assessment and Plan (1) Acute kidney injury: Code(s): N17.9 - Acute kidney failure, unspecified Status: Acute Assessment and Plan: * slow improvement in BUN and creatinine.... * a bit worse from baseline (but has been this high before) * suspect due a few issues: * prerenal factors * severe anemia * pneumonia * other * evaluation to date noted: * renal u/s without obstruction * urine electrolytes are prerenal * UA without evidence of infection * proteinuria noted * CPK low * still making good urine output * follow trend of repeat labs and UOP (2) Stage 4 chronic kidney disease: Code(s): N18.4 - Chronic kidney disease, stage 4 (severe) Status: Chronic Assessment and Plan: * fluctuates to extremes at baseline... 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 with small amount of hematin in the lumen * s/p cauterization with APC * GI recommendations noted * holding Eliquis for 7 days * d/c'd PPI * follow trend of H/H (4) Shortness of breath: Code(s): R06.02 - Shortness of breath Status: Acute Assessment and Plan: * clinically seems better * CT imaging noted: * moderate pulmonary edema * pneumonia * pleural effusions * ascites * viral testing for influenza/RSV/COVID negative * remains on oral diuretic therapy * off oxygen at this time * follow respiratory status (5) Anemia: Code(s): D64.9 - Anemia, unspecified Status: Acute Assessment and Plan: * partly related to NANDINI, CKD, and complicated by #3 * follow trend of H/H * consider THEO depending on trend of H/H (6) Pneumonia: Code(s): J18.9 - Pneumonia, unspecified organism Status: Acute Assessment and Plan: * as noted by admission imaging * on antibiotics * follow culture data (negative to date) (7) Atrial fibrillation: Qualifiers: Atrial fibrillation type: unspecified chronic Qualified Code(s): I48.20 - Chronic atrial fibrillation, unspecified Code(s): I48.91 - Unspecified atrial fibrillation Status: Chronic Assessment and Plan: * rate control strategy * Eliquis on hold (see #3) (8) Hyponatremia: Code(s): E87.1 - Hypo-osmolality and hyponatremia Status: Acute Assessment and Plan: * improving * likely related to NANDINI on CKD * follow trend (9) Dysphagia: Qualifiers: Dysphagia type: unspecified Qualified Code(s): R13.10 - Dysphagia, unspecified Code(s): R13.10 - Dysphagia, unspecified Status: Chronic Assessment and Plan: * s/p PEG tube placement * speech therapy recommendations and MBS noted * on tube feedings (10) Hypertension: Code(s): I10 - Essential (primary) hypertension Status: Chronic Assessment and Plan: * reasonable control * slowly resume BP medications * follow trend of hemodyamics (11) Diabetes mellitus: Qualifiers: Diabetes mellitus type: type 2 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: without skilled nursing use Diabetes mellitus complication status: with kidney complications Diabetes mellitus complication detail: with chronic kidney disease Chronic kidney disease stage: stage 4 (severe) Qualified Code(s): E 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; N18.4 - Chronic kidney disease, stage 4 (severe) Code(s): E11.9 - Type 2 diabetes mellitus without complications Status: Chronic Assessment and Plan: * follow accu-cheks * glycemic control per hospitalist (12) Type II fracture of odontoid process: Qualifiers: Encounter type: subsequent encounter Fracture type: closed Fracture alignment: nondisplaced Fracture healing: with routine healing Qualified Code(s): S12.112D - Nondisplaced Type II dens fracture, subsequent encounter for fracture with routine healing Code(s): S12.110A - Anterior displaced Type II dens fracture, initial encounter for closed fracture Status: Chronic Assessment and Plan: * as noted on previous imaging * conservative therapy per Neurosurgery * [place] collar in place * ongoing PT/OT Will continue to follow. L Subjective Date/time seen: 05/05/25 12:01 Interval history: Follow-up for acute kidney injury/acute renal failure on chronic kidney disease. Tolerated EGD yesterday with findings noted; renal function/creatinine slightly better as is BUN; no apparent distress noted at the time of my visit; major complaint to me remains that he is thirsty and want drink something; no other issues/events overnight or earlier this morning. Exam 2 Narrative: General: elderly but WD/WN male in NAD; [place] collar in place Heart: normal S1 and S2; no rub Lungs: clear to auscultation Abdomen: soft, nontender, nondistended, positive bowel sounds Extremities: no cyanosis or clubbing; no edema Skin: warm and intact Objective Data Vital Signs Vital Signs: Vital Signs Temp Pulse Resp BP Pulse Ox O2 Del Method 05/05/25 12:00 63 05/05/25 10:00 72 05/05/25 09:00 Room Air 05/05/25 08:20 98.1 F 79 16 173/60 H 93 05/05/25 08:00 92 05/05/25 06:00 68 05/05/25 04:00 70 05/05/25 04:00 97.6 F 68 18 165/61 H 96 05/05/25 02:00 66 05/05/25 00:00 65 05/05/25 00:00 97.5 F L 61 20 159/64 H 94 05/04/25 22:00 61 05/04/25 20:15 97.2 F L 66 22 H 153/58 H 95 05/04/25 20:00 69 05/04/25 20:00 95 Room Air Intake/Output Intake/Output: Intake & Output 05/02/25 05/03/25 05/04/25 05/05/25 23:59 23:59 23:59 23:59 Intake Total 886.7 950 160 960 Output Total 1350 1650 2200 Balance 886.7 -400 -1490 -1240 Meds/Results Medications: Active Medications Generic Name Dose Route Start Last Admin Trade Name Freq PRN Reason Stop Dose Admin Acetaminophen 650 mg 05/02/25 20:49 Acetaminophen Elixir 325 Mg/10.15 Ml Udc FEED TUBE Q4H PRN Mild Pain (1-3) or Fever Amlodipine Besylate 5 mg 05/05/25 17:25 05/05/25 17:54 Amlodipine Besylate 5 Mg Tablet FEED TUBE 5 mg DAILY OLENA Administration Amoxicillin/Clavulanate Potassium 500 mg 05/05/25 09:30 05/05/25 10:07 Amoxicillin/Clavulanate K Susp 500 Mg/6.25 Ml Ud PO 05/08/25 09:01 500 mg Q12HR OLENA Administration Dextrose 12.5 gm 05/02/25 20:20 Dextrose 50% 25 Gm/50 Ml Syringe IV PUSH PRN PRN Hypoglycemia Protocol Febuxostat 40 mg 05/06/25 09:00 Febuxostat 40 Mg Tablet FEED TUBE DAILY OLENA Furosemide 40 mg 05/03/25 09:00 05/05/25 10:06 Furosemide 40 Mg Tablet FEED TUBE 40 mg DAILY OLENA Administration Glucagon 1 mg 05/02/25 20:20 Glucagon For Inj 1 Mg Vial IM PRN PRN Hypoglycemia Protocol Glucose 15 gm 05/02/25 20:20 Glucose Oral Gel 15 Gm Of Glucse In 37.5 Gm Tube PO PRN PRN Hypoglycemia Protocol Dextrose 1,000 mls @ 100 mls/hr 05/02/25 20:20 Dextrose 5% 1,000 Ml IVPB PRN PRN Hypoglycemia Protocol Potassium Chloride 40 meq/ 520 mls @ 130 mls/hr 05/05/25 17:13 Sodium Chloride IVPB 05/05/25 21:12 ONCE ONE Insulin Aspart 2 - 5 units 05/03/25 00:00 05/05/25 17:06 Insulin Aspart (*Bkc) 100 Units/Ml SUB-Q 2 units Q6HR OLENA Administration Protocol Levetiracetam 750 mg 05/02/25 21:00 05/05/25 10:06 Levetiracetam Oral Pallavi 500 Mg/5 Ml Udc FEED TUBE 750 mg Q12HR OLENA Administration Simvastatin 40 mg 05/03/25 09:00 05/05/25 10:06 Simvastatin 20 Mg Tablet FEED TUBE 40 mg DAILY OLENA Administration Radiology Results: ITS Impressions Chest X-Ray 05/03/25 08:28 IMPRESSION: 1. Interstitial pulmonary edema and/or pneumonitis. 2. Bibasilar atelectasis and/or pleural effusions. Chest CT 05/03/25 09:17 IMPRESSION: 1. Diffuse lung disease, likely a combination of moderate pulmonary edema and pneumonia. 2. Moderate-sized pleural effusions. 3. Ascites. Renal Ultrasound 05/03/25 11:21 IMPRESSION: 1. No hydronephrosis. Modified Barium Swallow 05/04/25 13:53 IMPRESSION: Pharyngeal dysphagia with laryngeal penetration without aspiration. Please correlate with speech pathologist findings and specific feeding recommendations. Labs Labs: Laboratory Tests 05/05/25 09:07 05/05/25 09:07 Calcium 9.2 Phosphorus 5.8 H Magnesium 2.2 Total Bilirubin 0.7 AST 30 ALT 22 Alkaline Phosphatase 115 Total Protein 7.0 Albumin 3.7
[2025-05-05] MEDS: INSULIN ASPART (*BKC) 100 UNITS/ML SUB-Q ×2 (12:44→17:06)
--- NOTE | 2025-05-05 14:07 | PCPTNOTE ---
Attempted to see pt for physical therapy this morning and pt stated that he wanted to try therapy in the afternoon after getting rest. Attempted to see pt again this afternoon and pt was asleep. requested for physical therapy to check back on him in about and hour so he can get some sleep. Will continue to follow.
[2025-05-05] MEDS: AZITHROMYCIN 500 MG TABLET FEED TUBE (14:51)
--- NOTE | 2025-05-05 15:14 | WPDGIPROGNO ---
Progress Note: A&P Assessment and Plan (1) GI bleed: Qualifiers: GI bleed type/associated pathology: melena Qualified Code(s): K92.1 - Melena Code(s): K92.2 - Gastrointestinal hemorrhage, unspecified Status: Acute Assessment and Plan: from avm- treated with apc h/h stable, no more gib will follow as needed (2) AVM (arteriovenous malformation) of duodenum, acquired with hemorrhage: Code(s): K31.811 - Angiodysplasia of stomach and duodenum with bleeding Status: Acute Assessment and Plan: source of ugib (3) Dysphagia: Qualifiers: Dysphagia type: unspecified Qualified Code(s): R13.10 - Dysphagia, unspecified Code(s): R13.10 - Dysphagia, unspecified Status: Chronic Assessment and Plan: peg in place speech therapist on board (4) Melena: Code(s): K92.1 - Melena Status: Acute (5) Acute kidney injury superimposed on CKD: Code(s): N17.9 - Acute kidney failure, unspecified; N18.9 - Chronic kidney disease, unspecified Status: Acute (6) Acute on chronic anemia: Code(s): D64.9 - Anemia, unspecified Status: Acute Assessment and Plan: hgb stable after transfusion monitor for more signs of bleeding Subjective Date/time seen: 05/05/25 15:14 Interval history: egd yesterday with bleeding duodenal avm treated with apc no more bleeding, he is doing ok Review of Systems Review of Systems: All systems reviewed & are unremarkable except as noted in HPI and below Exam Narrative: Gen - NARD HEENT - normal nares Neck - neck brace in place Chest - clear anteriorly and in the flanks, nml RR CV - RRR S1/S2. Abd - soft. NT/ND. +BS. G-tube in place Ext - no pedal edema Neuro - alert and appropriate Skin - Warm, dry. Pallor Psy- normal affect Objective Data Vital Signs Vital Signs: Vital Signs - 24 hr 05/04/25 16:00 05/04/25 16:00 05/04/25 18:00 Temperature 97.6 F Pulse Rate 64 65 63 Respiratory Rate 20 Blood Pressure 155/61 H Pulse Oximetry 95 Oxygen Delivery 05/04/25 20:00 05/04/25 20:00 05/04/25 20:15 Temperature 97.2 F L Pulse Rate 69 66 Respiratory Rate 22 H Blood Pressure 153/58 H Pulse Oximetry 95 95 Oxygen Delivery Room Air 05/04/25 22:00 05/05/25 00:00 05/05/25 00:00 Temperature 97.5 F L Pulse Rate 61 61 65 Respiratory Rate 20 Blood Pressure 159/64 H Pulse Oximetry 94 Oxygen Delivery 05/05/25 02:00 05/05/25 04:00 05/05/25 04:00 Temperature 97.6 F Pulse Rate 66 68 70 Respiratory Rate 18 Blood Pressure 165/61 H Pulse Oximetry 96 Oxygen Delivery 05/05/25 06:00 05/05/25 08:00 05/05/25 08:20 Temperature 98.1 F Pulse Rate 68 92 79 Respiratory Rate 16 Blood Pressure 173/60 H Pulse Oximetry 93 Oxygen Delivery 05/05/25 09:00 05/05/25 10:00 05/05/25 12:00 Temperature Pulse Rate 72 63 Respiratory Rate Blood Pressure Pulse Oximetry Oxygen Delivery Room Air Intake/Output Intake/Output: Intake & Output 05/02/25 05/03/25 05/04/25 05/05/25 23:59 23:59 23:59 23:59 Intake Total 886.7 950 160 240 Output Total 1350 1650 1100 Balance 886.7 -400 -1490 -860 Meds/Results Medications: Active Medications Generic Name Dose Route Start Last Admin Trade Name Freq PRN Reason Stop Dose Admin Acetaminophen 650 mg 05/02/25 20:49 Acetaminophen Elixir 325 Mg/10.15 Ml Udc FEED TUBE Q4H PRN Mild Pain (1-3) or Fever Amoxicillin/Clavulanate Potassium 500 mg 05/05/25 09:30 05/05/25 10:07 Amoxicillin/Clavulanate K Susp 500 Mg/6.25 Ml Ud PO 05/08/25 09:01 500 mg Q12HR OLENA Administration Dextrose 12.5 gm 05/02/25 20:20 Dextrose 50% 25 Gm/50 Ml Syringe IV PUSH PRN PRN Hypoglycemia Protocol Febuxostat 40 mg 05/06/25 09:00 Febuxostat 40 Mg Tablet FEED TUBE DAILY OLENA Furosemide 40 mg 05/03/25 09:00 05/05/25 10:06 Furosemide 40 Mg Tablet FEED TUBE 40 mg DAILY OLENA Administration Glucagon 1 mg 05/02/25 20:20 Glucagon For Inj 1 Mg Vial IM PRN PRN Hypoglycemia Protocol Glucose 15 gm 05/02/25 20:20 Glucose Oral Gel 15 Gm Of Glucse In 37.5 Gm Tube PO PRN PRN Hypoglycemia Protocol Dextrose 1,000 mls @ 100 mls/hr 05/02/25 20:20 Dextrose 5% 1,000 Ml IVPB PRN PRN Hypoglycemia Protocol Insulin Aspart 2 - 5 units 05/03/25 00:00 05/05/25 12:44 Insulin Aspart (*Bkc) 100 Units/Ml SUB-Q 2 units Q6HR OLENA Administration Protocol Levetiracetam 750 mg 05/02/25 21:00 05/05/25 10:06 Levetiracetam Oral Pallavi 500 Mg/5 Ml Udc FEED TUBE 750 mg Q12HR OLENA Administration Simvastatin 40 mg 05/03/25 09:00 05/05/25 10:06 Simvastatin 20 Mg Tablet FEED TUBE 40 mg DAILY OLENA Administration Radiology Results: ITS Impressions Chest X-Ray 05/03/25 08:28 IMPRESSION: 1. Interstitial pulmonary edema and/or pneumonitis. 2. Bibasilar atelectasis and/or pleural effusions. Chest CT 05/03/25 09:17 IMPRESSION: 1. Diffuse lung disease, likely a combination of moderate pulmonary edema and pneumonia. 2. Moderate-sized pleural effusions. 3. Ascites. Renal Ultrasound 05/03/25 11:21 IMPRESSION: 1. No hydronephrosis. Modified Barium Swallow 05/04/25 13:53 IMPRESSION: Pharyngeal dysphagia with laryngeal penetration without aspiration. Please correlate with speech pathologist findings and specific feeding recommendations. Labs Labs: Laboratory Results - last 24 hr 05/04/25 05/05/25 05/05/25 04:09 00:17 06:58 WBC RBC Hgb Hct MCV MCH MCHC RDW Plt Count MPV Immature Gran % (Auto) Neut % (Auto) Lymph % (Auto) [place] % (Auto) Eos % (Auto) Baso % (Auto) Lymph # (Auto) [place] # (Auto) Eos # (Auto) Baso # (Auto) Abs Immat Gran (auto) Absolute Neuts (auto) Absolute Nucleated RBC Nucleated RBC % Sodium Potassium Chloride Carbon Dioxide Anion Gap BUN Creatinine Estim Creat Clear Calc Estimated GFR Glucose POC Capillary Glucose 186 H 174 H Calcium Phosphorus Magnesium Total Bilirubin AST ALT Alkaline Phosphatase Total Protein Albumin M.pneumoniae IgM Titer <770 05/05/25 05/05/25 09:07 11:31 WBC 14.1 H RBC 2.90 L Hgb 9.1 L Hct 27.1 L MCV 93.4 MCH 31.4 MCHC 33.6 RDW 15.2 H Plt Count 453 H MPV 10.0 Immature Gran % (Auto) 0.7 H Neut % (Auto) 82.8 H Lymph % (Auto) 5.0 L [place] % (Auto) 9.5 H Eos % (Auto) 1.6 Baso % (Auto) 0.4 Lymph # (Auto) 0.70 L [place] # (Auto) 1.3 H Eos # (Auto) 0.2 Baso # (Auto) 0.1 Abs Immat Gran (auto) 0.10 H Absolute Neuts (auto) 11.7 H Absolute Nucleated RBC 0.000 Nucleated RBC % 0.0 Sodium 137 Potassium 3.2 L Chloride 99 Carbon Dioxide 22 Anion Gap 16 H BUN 115 H* Creatinine 3.29 H Estim Creat Clear Calc 13 Estimated GFR 18 L Glucose 185 H POC Capillary Glucose 228 H Calcium 9.2 Phosphorus 5.8 H Magnesium 2.2 Total Bilirubin 0.7 AST 30 ALT 22 Alkaline Phosphatase 115 Total Protein 7.0 Albumin 3.7 M.pneumoniae IgM Titer
--- NOTE | 2025-05-05 17:20 | PM.IMPN ---
Progress Note: A&P Assessment and Plan (1) Atrial fibrillation: Qualifiers: Atrial fibrillation type: unspecified chronic Qualified Code(s): I48.20 - Chronic atrial fibrillation, unspecified Code(s): I48.91 - Unspecified atrial fibrillation Status: Chronic (2) Alcohol abuse: Code(s): F10.10 - Alcohol abuse, uncomplicated Status: Acute (3) Acute kidney injury superimposed on CKD: Code(s): N17.9 - Acute kidney failure, unspecified; N18.9 - Chronic kidney disease, unspecified Status: Acute (4) Anemia: Code(s): D64.9 - Anemia, unspecified Status: Acute (5) Shortness of breath: Code(s): R06.02 - Shortness of breath Status: Acute Plan 84 y/o M with PMH of alcohol use disorder, hypertension, prostate cancer, hyperlipidemia, gout, CKD stage IV, seizures, dysphagia S/P peg placement, atrial fibrillation on anticoagulation, anemia of chronic disease, and type 2 diabetes presents here with anemia and bradycardia, melena, shortness of breath x2 days. The patient presents here from [facility] via EMS on 05/02 for further evaluation of low hemoglobin and bradycardia. Patient currently at [facility] after a recent admission at [facility] from 04/12/25 to 04/24/25. Seen at that time for altered mental status/new onset seizure disorder. Seizure suspected to be related to alcohol use or withdrawal, started on Keppra 750 mg twice daily. Patient additionally sustained a type 2 odontoid fracture for which he saw neuro surgery and was placed in an Foss collar, follow-up with their service in 6 weeks and discharged to [facility] for PT/OT. Patient also failed MBS on 04/17 for which a PEG tube was placed on 04/20 and he was started on tube feeds, strict NPO, and to continue speech therapy at [facility]. Patient also developed new AFib during this admission for which he was restarted on labetalol for concurrent hypertension and he was started on anticoagulation, Eliquis. Additionally treated for CAP for which he did not require supplemental oxygen. Has since been at [facility] and has had un unremarkable recovery up to today when his Hgb was found to be 5.2, verified via repeat (4.8). Patient also noted to be bradycardic at 54. Per the patient's , he has been experiencing dark tarry stools for the past 4 days. Initial VS at presentation: 97.9? F, HR 54, R 19, 111/54, and 100% on RA. ED workup showed: WBC 10.5, hemoglobin 4.6 (previously 7.5 on 04/25), INR 1.6, sodium 131, creatinine 3.57 and GFR 17 (previously 2.87 and GFR 21 on 04/25), glucose 142, albumin 2.9. ----- Shortness of breath -reported of shortness of breath transiently on 05/03/2025. Chest CT demonstrated diffuse lung disease likely a combination of moderate pulmonary edema and pneumonia, moderate-size pleural effusions, ascites -patient did received 3 units PRBC. Quad viral screen negative. Respiratory pathogen panel pending. Mycoplasma IgM negative. -required O2 transiently. Has been breathing well since on room air. Continue HEALTHCARE OR MEDICAL Lasix 40 mg via feeding tube daily. Melena, acute anemia on chronic anemia -GI consulted. Status post 3 units PRBC. 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 Lesion was cauterized with APC. GI recommended restarting tube feeding, holding Eliquis for 7 days status post EGD. Discontinue Protonix. Hemoglobin has been stable. Dysphagia status post PEG placement -speech therapy consulted, modified barium swallow completed on 05/04/2025 after EGD, demonstrates pharyngeal dysphagia with laryngeal penetration without aspiration. Feeding tubes restarted, 1 on 1 oral feeding per speech therapy with continued evaluations and treatment. NANDINI and CKD -recent baseline around 3.0. Presents to serum creatinine 3.49, no improvement after 3 unit PRBC and 1 L of lactated Ringer's -nephrology consultation. Elevated BUN possibly due to GI bleed. Appreciate recommendations. Discharge when okay with Nephrology. Hamilton catheter removed. -continue intake/output monitoring and daily weights. Hypokalemia: 05/05/2025, replacing. Continue to monitor. Hypertension -at goal. Initially holding amlodipine and hydralazine due to GI bleed. -05/05/2025: Blood pressure is elevated, restart daily amlodipine. History of alcohol use disorder, seizure disorder -continue HEALTHCARE OR MEDICAL Keppra 750 mg p.o. b.i.d. Atrial fibrillation on anticoagulation, bradycardia -currently in sinus bradycardia. Hold HEALTHCARE OR MEDICAL labetalol -continue telemetry Ubq-[id number] diabetes mellitus -Accu-Cheks q.6 hours with low-dose insulin sliding scale and hypoglycemia protocol Type 2 fracture of odontoid process -continue Foss collar -continue PT/OT Leukocytosis -mild, continue to trend. Afebrile. Patient appears nontoxic, no evidence of active infection Hypothermia -on admission, received heating blanket/Alma Hugger, could have been due to anemia. Resolved. ----- Speech therapy, thickened liquids, pureed diet with 1 on 1 feeding. Tube feeds resume. Continue dietitian and speech therapy Hold HEALTHCARE OR MEDICAL Eliquis, SCDs Received 3 units PRBC in 1 L lactated Ringer's on admission. Saline lock IV Peripheral IV, PEG tube, Ahmilton catheter removed DNR Stable on medical floor. Time Spent With Patient Time with patient: Greater than 35 minutes Subjective Date/time seen: 05/05/25 17:20 Interval history: No major acute overnight events. Patient complains of feeling thirsty and wants to drink. Denies chest pain. Review of Systems Review of Systems: All systems reviewed & are unremarkable except as noted in HPI and below (Subjective) Exam Const: General: comfortable and no acute distress HENMT: Other: Dry mucous membrane Neck: Other: In Foss collar Resp: Effort & Inspection: normal respiratory effort Auscultation: clear to auscultation bilaterally Cardio: Rate: regular rate Rhythm: regular rhythm GI: GI Palp: Yes Soft to palpation and No Tenderness to palpation present (GI) Neuro: Other: Moves all 4 extremities Extrem: General: no edema Objective Data Vital Signs Vital Signs: Vital Signs - 24 hr 05/04/25 18:00 05/04/25 20:00 05/04/25 20:00 Temperature Pulse Rate 63 69 Respiratory Rate Blood Pressure Pulse Oximetry 95 Oxygen Delivery Room Air 05/04/25 20:15 05/04/25 22:00 05/05/25 00:00 Temperature 97.2 F L 97.5 F L Pulse Rate 66 61 61 Respiratory Rate 22 H 20 Blood Pressure 153/58 H 159/64 H Pulse Oximetry 95 94 Oxygen Delivery 05/05/25 00:00 05/05/25 02:00 05/05/25 04:00 Temperature 97.6 F Pulse Rate 65 66 68 Respiratory Rate 18 Blood Pressure 165/61 H Pulse Oximetry 96 Oxygen Delivery 05/05/25 04:00 05/05/25 06:00 05/05/25 08:00 Temperature Pulse Rate 70 68 92 Respiratory Rate Blood Pressure Pulse Oximetry Oxygen Delivery 05/05/25 08:20 05/05/25 09:00 05/05/25 10:00 Temperature 98.1 F Pulse Rate 79 72 Respiratory Rate 16 Blood Pressure 173/60 H Pulse Oximetry 93 Oxygen Delivery Room Air 05/05/25 12:00 05/05/25 16:00 Temperature 97.4 F L Pulse Rate 63 62 Respiratory Rate 16 Blood Pressure 143/59 H Pulse Oximetry 98 Oxygen Delivery Intake/Output Intake/Output: Intake & Output 05/02/25 05/03/25 05/04/25 05/05/25 23:59 23:59 23:59 23:59 Intake Total 886.7 950 160 960 Output Total 1350 1650 2200 Balance 886.7 -400 -1490 -1240 Meds/Results Medications: Active Medications Generic Name Dose Route Start Last Admin Trade Name Freq PRN Reason Stop Dose Admin Acetaminophen 650 mg 05/02/25 20:49 Acetaminophen Elixir 325 Mg/10.15 Ml Udc FEED TUBE Q4H PRN Mild Pain (1-3) or Fever Amoxicillin/Clavulanate Potassium 500 mg 05/05/25 09:30 05/05/25 10:07 Amoxicillin/Clavulanate K Susp 500 Mg/6.25 Ml Ud PO 05/08/25 09:01 500 mg Q12HR OLENA Administration Dextrose 12.5 gm 05/02/25 20:20 Dextrose 50% 25 Gm/50 Ml Syringe IV PUSH PRN PRN Hypoglycemia Protocol Febuxostat 40 mg 05/06/25 09:00 Febuxostat 40 Mg Tablet FEED TUBE DAILY OLENA Furosemide 40 mg 05/03/25 09:00 05/05/25 10:06 Furosemide 40 Mg Tablet FEED TUBE 40 mg DAILY OLENA Administration Glucagon 1 mg 05/02/25 20:20 Glucagon For Inj 1 Mg Vial IM PRN PRN Hypoglycemia Protocol Glucose 15 gm 05/02/25 20:20 Glucose Oral Gel 15 Gm Of Glucse In 37.5 Gm Tube PO PRN PRN Hypoglycemia Protocol Dextrose 1,000 mls @ 100 mls/hr 05/02/25 20:20 Dextrose 5% 1,000 Ml IVPB PRN PRN Hypoglycemia Protocol Potassium Chloride 40 meq/ 520 mls @ 130 mls/hr 05/05/25 17:13 Sodium Chloride IVPB 05/05/25 21:12 ONCE ONE Insulin Aspart 2 - 5 units 05/03/25 00:00 05/05/25 17:06 Insulin Aspart (*Bkc) 100 Units/Ml SUB-Q 2 units Q6HR OLENA Administration Protocol Levetiracetam 750 mg 05/02/25 21:00 05/05/25 10:06 Levetiracetam Oral Pallavi 500 Mg/5 Ml Udc FEED TUBE 750 mg Q12HR OLENA Administration Simvastatin 40 mg 05/03/25 09:00 05/05/25 10:06 Simvastatin 20 Mg Tablet FEED TUBE 40 mg DAILY OLENA Administration Radiology Results: ITS Impressions Chest X-Ray 05/03/25 08:28 IMPRESSION: 1. Interstitial pulmonary edema and/or pneumonitis. 2. Bibasilar atelectasis and/or pleural effusions. Chest CT 05/03/25 09:17 IMPRESSION: 1. Diffuse lung disease, likely a combination of moderate pulmonary edema and pneumonia. 2. Moderate-sized pleural effusions. 3. Ascites. Renal Ultrasound 05/03/25 11:21 IMPRESSION: 1. No hydronephrosis. Modified Barium Swallow 05/04/25 13:53 IMPRESSION: Pharyngeal dysphagia with laryngeal penetration without aspiration. Please correlate with speech pathologist findings and specific feeding recommendations. Labs Labs: Laboratory Results - last 24 hr 05/04/25 05/05/25 05/05/25 04:09 00:17 06:58 WBC RBC Hgb Hct MCV MCH MCHC RDW Plt Count MPV Immature Gran % (Auto) Neut % (Auto) Lymph % (Auto) [place] % (Auto) Eos % (Auto) Baso % (Auto) Lymph # (Auto) [place] # (Auto) Eos # (Auto) Baso # (Auto) Abs Immat Gran (auto) Absolute Neuts (auto) Absolute Nucleated RBC Nucleated RBC % Sodium Potassium Chloride Carbon Dioxide Anion Gap BUN Creatinine Estim Creat Clear Calc Estimated GFR Glucose POC Capillary Glucose 186 H 174 H Calcium Phosphorus Magnesium Total Bilirubin AST ALT Alkaline Phosphatase Troponin I Total Protein Albumin M.pneumoniae IgM Titer <770 05/05/25 05/05/25 05/05/25 09:07 11:31 15:31 WBC 14.1 H RBC 2.90 L Hgb 9.1 L Hct 27.1 L MCV 93.4 MCH 31.4 MCHC 33.6 RDW 15.2 H Plt Count 453 H MPV 10.0 Immature Gran % (Auto) 0.7 H Neut % (Auto) 82.8 H Lymph % (Auto) 5.0 L [place] % (Auto) 9.5 H Eos % (Auto) 1.6 Baso % (Auto) 0.4 Lymph # (Auto) 0.70 L [place] # (Auto) 1.3 H Eos # (Auto) 0.2 Baso # (Auto) 0.1 Abs Immat Gran (auto) 0.10 H Absolute Neuts (auto) 11.7 H Absolute Nucleated RBC 0.000 Nucleated RBC % 0.0 Sodium 137 Potassium 3.2 L Chloride 99 Carbon Dioxide 22 Anion Gap 16 H BUN 115 H* Creatinine 3.29 H Estim Creat Clear Calc 13 Estimated GFR 18 L Glucose 185 H POC Capillary Glucose 228 H Calcium 9.2 Phosphorus 5.8 H Magnesium 2.2 Total Bilirubin 0.7 AST 30 ALT 22 Alkaline Phosphatase 115 Troponin I Cancelled Total Protein 7.0 Albumin 3.7 M.pneumoniae IgM Titer 05/05/25 17:04 WBC RBC Hgb Hct MCV MCH MCHC RDW Plt Count MPV Immature Gran % (Auto) Neut % (Auto) Lymph % (Auto) [place] % (Auto) Eos % (Auto) Baso % (Auto) Lymph # (Auto) [place] # (Auto) Eos # (Auto) Baso # (Auto) Abs Immat Gran (auto) Absolute Neuts (auto) Absolute Nucleated RBC Nucleated RBC % Sodium Potassium Chloride Carbon Dioxide Anion Gap BUN Creatinine Estim Creat Clear Calc Estimated GFR Glucose POC Capillary Glucose 210 H Calcium Phosphorus Magnesium Total Bilirubin AST ALT Alkaline Phosphatase Troponin I Total Protein Albumin M.pneumoniae IgM Titer
[2025-05-05] MEDS: POTASSIUM CHLORIDE INJ 40 MEQ in SODIUM CHLORIDE 0.9% IV 500 ML 130 MEQ IVPB (18:34)
--- NOTE | 2025-05-05 18:36 | PC.NURSE ---
This patient, Shantanu Burleson, was transferred to [[facility] ] on 05/05/25 at 1822. Personal belongings sent with patient. Report given to [Brenda ]. Appropriate documentation sent with patient.
[2025-05-06 04:30] VITALS: BP 151/59; PULSE 67; RESP 16; TEMP 35.8; O2SAT 96
[2025-05-06 05:33] LABS: Hematocrit 27.3 % (42.0-52.0); Hemoglobin 9.1 g/dL (14.0-18.0); Immature Granulocyte Percent A 0.6 % (0-0.5); Lymphocytes Absolute Auto 1.06 K/mm3 (0.9-3.2); Mean Corpuscular HGB Conc 33.3 g/dl (32-36); Mean Corpuscular Hemoglobin 31.4 pg (26-34); Mean Corpuscular Volume 94.1 fl (80-100); Nucleated Red Blood Cells Absolute Auto 0.000 K/mm3 (0.0-0.012); Nucleated Red Blood Cells Perc 0.0 % (0.0-0.2); Platelet Count Result 408 k/mm3 (150-375); Red Blood Count 2.90 M/mm3 (4.6-6.20); White Blood Count 12.0 K/mm3 (4.5-10.0)
[2025-05-06 05:50] LABS: Alanine Aminotransferase 22 U/L (6-50); Albumin Level 3.5 g/dL (3.5-5.1); Alkaline Phosphatase 103 U/L (38-126); Anion Gap 12 mmol/L (4-12); Aspartate Amino Transferase 27 U/L (17-59); Bilirubin,Total 0.6 mg/dL (0.2-1.3); Blood Urea Nitrogen 114 mg/dL (9-20); Calcium 9.3 mg/dL (8.4-10.2); Carbon Dioxide 23 mmol/L (22-30); Chloride 101 mmol/L (98-107); Estimated CRCL calculation 13 ml/min; Estimated Glomerular Filt Rate 19; Glucose 156 mg/dL (65-110); Magnesium 2.1 mg/dL (1.6-2.3); Potassium 3.2 mmol/L (3.4-5.0); Sodium 136 mmol/L (137-145); Total Protein 6.7 g/dL (6.3-8.2)
[2025-05-06] MEDS: levETIRAcetam ORAL SOL 500 MG/5 ML UDC 750 MG FEED TUBE ×2 (08:24→19:55)
[2025-05-06] MEDS: FEBUXOSTAT 40 MG TABLET FEED TUBE (08:28)
[2025-05-06] MEDS: FUROSEMIDE 40 MG TABLET FEED TUBE (08:28)
[2025-05-06] MEDS: SIMVASTATIN 20 MG TABLET 40 MG FEED TUBE (08:28)
[2025-05-06] MEDS: AMOXICILLIN/CLAVULANATE K SUSP 500 MG/6.25 ML UD PO ×2 (08:29→19:56)
--- NOTE | 2025-05-06 10:12 | PCPTNOTE ---
Attempted to see pt for physical therapy this morning. Pt stated that he wants to wait until after lunch so he is able to get more rest. Pt's tried encouraging pt to participate stating that he has to get up at some point and pt stated that he still would like to wait until after lunch.
[2025-05-06] MEDS: POTASSIUM CHLORIDE 20 MEQ PACKET (FOR LIQUID) 40 MEQ PO (10:39)
--- NOTE | 2025-05-06 11:26 | PCPTNOTE ---
Attempted to see pt for physical therapy again before lunch. Pt stated that he is currently on the bed posadas and has been having constant BM's. Pt and requested to try physical therapy after lunch.
--- NOTE | 2025-05-06 12:52 | P.PNNP_ITS ---
Progress Note: A&P Assessment and Plan (1) Acute kidney injury: Code(s): N17.9 - Acute kidney failure, unspecified Status: Acute Assessment and Plan: * slow improvement in BUN and creatinine.... * a bit worse from baseline (but has been this high before) * suspect due a few issues: * prerenal factors * severe anemia * pneumonia * other * evaluation to date noted: * renal u/s without obstruction * urine electrolytes are prerenal * UA without evidence of infection * proteinuria noted * CPK low * still making good urine output * follow trend of repeat labs and UOP (2) Stage 4 chronic kidney disease: Code(s): N18.4 - Chronic kidney disease, stage 4 (severe) Status: Chronic Assessment and Plan: * fluctuates to extremes at baseline... 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 with small amount of hematin in the lumen * s/p cauterization with APC * GI recommendations noted * holding Eliquis for 7 days following EGD * d/c'd PPI * follow trend of H/H (4) Shortness of breath: Code(s): R06.02 - Shortness of breath Status: Acute Assessment and Plan: * clinically seems better * CT imaging noted: * moderate pulmonary edema * pneumonia * pleural effusions * ascites * viral testing for influenza/RSV/COVID negative * remains on oral diuretic therapy * off oxygen at this time * follow respiratory status (5) Anemia: Code(s): D64.9 - Anemia, unspecified Status: Acute Assessment and Plan: * partly related to NANDINI, CKD, and complicated by #3 * follow trend of H/H * consider THEO depending on trend of H/H (6) Pneumonia: Code(s): J18.9 - Pneumonia, unspecified organism Status: Acute Assessment and Plan: * as noted by admission imaging * on antibiotics * follow culture data (negative to date) (7) Atrial fibrillation: Qualifiers: Atrial fibrillation type: unspecified chronic Qualified Code(s): I48.20 - Chronic atrial fibrillation, unspecified Code(s): I48.91 - Unspecified atrial fibrillation Status: Chronic Assessment and Plan: * rate control strategy * Eliquis on hold (see #3) (8) Hyponatremia: Code(s): E87.1 - Hypo-osmolality and hyponatremia Status: Acute Assessment and Plan: * improving * likely related to NANDINI on CKD * follow trend (9) Dysphagia: Qualifiers: Dysphagia type: unspecified Qualified Code(s): R13.10 - Dysphagia, unspecified Code(s): R13.10 - Dysphagia, unspecified Status: Chronic Assessment and Plan: * s/p PEG tube placement * speech therapy recommendations and MBS noted * on tube feedings (10) Hypertension: Code(s): I10 - Essential (primary) hypertension Status: Chronic Assessment and Plan: * reasonable control * slowly resume BP medications * follow trend of hemodyamics (11) Diabetes mellitus: Qualifiers: Diabetes mellitus type: type 2 Diabetes mellitus custodial insulin use: without custodial use Diabetes mellitus complication status: with kidney complications Diabetes mellitus complication detail: with chronic kidney disease Chronic kidney disease stage: stage 4 (severe) Qualified Code(s): E 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; N18.4 - Chronic kidney disease, stage 4 (severe) Code(s): E11.9 - Type 2 diabetes mellitus without complications Status: Chronic Assessment and Plan: * follow accu-cheks * glycemic control per hospitalist (12) Type II fracture of odontoid process: Qualifiers: Encounter type: subsequent encounter Fracture type: closed Fracture alignment: nondisplaced Fracture healing: with routine healing Qualified Code(s): S12.112D - Nondisplaced Type II dens fracture, subsequent encounter for fracture with routine healing Code(s): S12.110A - Anterior displaced Type II dens fracture, initial encounter for closed fracture Status: Chronic Assessment and Plan: * as noted on previous imaging * conservative therapy per Neurosurgery * Orlando collar in place * ongoing PT/OT Will continue to follow. L Subjective Date/time seen: 05/06/25 12:52 Interval history: Follow-up for acute kidney injury/acute renal failure on chronic kidney disease. Renal function/creatinine as well as BUN continue to slowly improve in association with reasonable urine output (although he is on diuretic therapy); no apparent distress noted at the time of my visit; H/H remains relatively stable as well. Exam 2 Narrative: General: elderly but WD/WN male in NAD; Orlando collar in place Heart: normal S1 and S2; no rub Lungs: clear anteriorly Abdomen: soft, nontender, nondistended, positive bowel sounds Extremities: no cyanosis or clubbing; no edema Skin: no rash Objective Data Vital Signs Vital Signs: Vital Signs Temp Pulse Resp BP Pulse Ox O2 Del Method 05/06/25 13:51 97.5 F L 64 16 158/70 H 97 05/06/25 04:30 96.4 F L 67 16 151/59 H 96 05/05/25 20:35 96.6 F L 64 18 157/59 H 98 05/05/25 20:00 Room Air Intake/Output Intake/Output: Intake & Output 05/03/25 05/04/25 05/05/25 05/06/25 23:59 23:59 23:59 23:59 Intake Total 950 148 934 4017 Output Total 1350 1650 2200 1400 Balance -400 -1490 -1240 32 Meds/Results Medications: Active Medications Generic Name Dose Route Start Last Admin Trade Name Freq PRN Reason Stop Dose Admin Acetaminophen 650 mg 05/02/25 20:49 Acetaminophen Elixir 325 Mg/10.15 Ml Udc FEED TUBE Q4H PRN Mild Pain (1-3) or Fever Amlodipine Besylate 5 mg 05/05/25 17:25 05/06/25 08:28 Amlodipine Besylate 5 Mg Tablet FEED TUBE 5 mg DAILY OLENA Administration Amoxicillin/Clavulanate Potassium 500 mg 05/05/25 09:30 05/06/25 08:29 Amoxicillin/Clavulanate K Susp 500 Mg/6.25 Ml Ud PO 05/08/25 09:01 500 mg Q12HR OLENA Administration Dextrose 12.5 gm 05/02/25 20:20 Dextrose 50% 25 Gm/50 Ml Syringe IV PUSH PRN PRN Hypoglycemia Protocol Febuxostat 40 mg 05/06/25 09:00 05/06/25 08:28 Febuxostat 40 Mg Tablet FEED TUBE 40 mg DAILY OLENA Administration Furosemide 40 mg 05/03/25 09:00 05/06/25 08:28 Furosemide 40 Mg Tablet FEED TUBE 40 mg DAILY OLENA Administration Glucagon 1 mg 05/02/25 20:20 Glucagon For Inj 1 Mg Vial IM PRN PRN Hypoglycemia Protocol Glucose 15 gm 05/02/25 20:20 Glucose Oral Gel 15 Gm Of Glucse In 37.5 Gm Tube PO PRN PRN Hypoglycemia Protocol Dextrose 1,000 mls @ 100 mls/hr 05/02/25 20:20 Dextrose 5% 1,000 Ml IVPB PRN PRN Hypoglycemia Protocol Insulin Aspart 2 - 5 units 05/03/25 00:00 05/06/25 13:00 Insulin Aspart (*Bkc) 100 Units/Ml SUB-Q Not Given Q6HR OLENA Protocol Levetiracetam 750 mg 05/02/25 21:00 05/06/25 08:24 Levetiracetam Oral Pallavi 500 Mg/5 Ml Udc FEED TUBE 750 mg Q12HR OLENA Administration Simvastatin 40 mg 05/03/25 09:00 05/06/25 08:28 Simvastatin 20 Mg Tablet FEED TUBE 40 mg DAILY OLENA Administration Radiology Results: ITS Impressions Chest X-Ray 05/03/25 08:28 IMPRESSION: 1. Interstitial pulmonary edema and/or pneumonitis. 2. Bibasilar atelectasis and/or pleural effusions. Chest CT 05/03/25 09:17 IMPRESSION: 1. Diffuse lung disease, likely a combination of moderate pulmonary edema and pneumonia. 2. Moderate-sized pleural effusions. 3. Ascites. Renal Ultrasound 05/03/25 11:21 IMPRESSION: 1. No hydronephrosis. Modified Barium Swallow 05/04/25 13:53 IMPRESSION: Pharyngeal dysphagia with laryngeal penetration without aspiration. Please correlate with speech pathologist findings and specific feeding recommendations. Labs Labs: Laboratory Tests 05/06/25 05:00 05/06/25 05:00 Calcium 9.3 Magnesium 2.1 Total Bilirubin 0.6 AST 27 ALT 22 Alkaline Phosphatase 103 Total Protein 6.7 Albumin 3.5 Microbiology 05/03/25 17:44 Urine - Urine [place] Specimen Source - Final 05/03/25 17:44 Urine - Urine [place] Streptococcus pneumoniae Ag Screen - Final 05/03/25 17:44 Urine - Urine [place] Sterile Body Fluid Culture - Final 05/03/25 17:44 Urine - Urine [place] Organism Identification - Final 05/03/25 17:44 Urine - Urine [place] Microbiology Comment - Final
[2025-05-06 13:51] VITALS: BP 158/70; PULSE 64; RESP 16; TEMP 36.4; O2SAT 97
--- NOTE | 2025-05-06 15:47 | PM.IMPN ---
Progress Note: A&P Assessment and Plan (1) Atrial fibrillation: Qualifiers: Atrial fibrillation type: unspecified chronic Qualified Code(s): I48.20 - Chronic atrial fibrillation, unspecified Code(s): I48.91 - Unspecified atrial fibrillation Status: Chronic (2) Alcohol abuse: Code(s): F10.10 - Alcohol abuse, uncomplicated Status: Acute (3) Acute kidney injury superimposed on CKD: Code(s): N17.9 - Acute kidney failure, unspecified; N18.9 - Chronic kidney disease, unspecified Status: Acute (4) Anemia: Code(s): D64.9 - Anemia, unspecified Status: Acute (5) Shortness of breath: Code(s): R06.02 - Shortness of breath Status: Acute Plan 84 y/o M with PMH of alcohol use disorder, hypertension, prostate cancer, hyperlipidemia, gout, CKD stage IV, seizures, dysphagia S/P peg placement, atrial fibrillation on anticoagulation, anemia of chronic disease, and type 2 diabetes presents here with anemia and bradycardia, melena, shortness of breath x2 days. The patient presents here from [facility] via EMS on 05/02 for further evaluation of low hemoglobin and bradycardia. Patient currently at [facility] after a recent admission at [facility] from 04/12/25 to 04/24/25. Seen at that time for altered mental status/new onset seizure disorder. Seizure suspected to be related to alcohol use or withdrawal, started on Keppra 750 mg twice daily. Patient additionally sustained a type 2 odontoid fracture for which he saw neuro surgery and was placed in an Arnold collar, follow-up with their service in 6 weeks and discharged to [facility] for PT/OT. Patient also failed MBS on 04/17 for which a PEG tube was placed on 04/20 and he was started on tube feeds, strict NPO, and to continue speech therapy at [facility]. Patient also developed new AFib during this admission for which he was restarted on labetalol for concurrent hypertension and he was started on anticoagulation, Eliquis. Additionally treated for CAP for which he did not require supplemental oxygen. Has since been at [facility] and has had un unremarkable recovery up to today when his Hgb was found to be 5.2, verified via repeat (4.8). Patient also noted to be bradycardic at 54. Per the patient's , he has been experiencing dark tarry stools for the past 4 days. Initial VS at presentation: 97.9? F, HR 54, R 19, 111/54, and 100% on RA. ED workup showed: WBC 10.5, hemoglobin 4.6 (previously 7.5 on 04/25), INR 1.6, sodium 131, creatinine 3.57 and GFR 17 (previously 2.87 and GFR 21 on 04/25), glucose 142, albumin 2.9. ----- Shortness of breath -reported of shortness of breath transiently on 05/03/2025. Chest CT demonstrated diffuse lung disease likely a combination of moderate pulmonary edema and pneumonia, moderate-size pleural effusions, ascites -patient did received 3 units PRBC. Quad viral screen negative. Respiratory pathogen panel pending. Mycoplasma IgM negative. -required O2 transiently. Has been breathing well since on room air. Continue [employer] Lasix 40 mg via feeding tube daily. Melena, acute anemia on chronic anemia -GI consulted. Status post 3 units PRBC. 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 Lesion was cauterized with APC. GI recommended restarting tube feeding, holding Eliquis for 7 days status post EGD. Discontinue Protonix. Hemoglobin has been stable. Dysphagia status post PEG placement -speech therapy consulted, modified barium swallow completed on 05/04/2025 after EGD, demonstrates pharyngeal dysphagia with laryngeal penetration without aspiration. Feeding tubes restarted, 1 on 1 oral feeding per speech therapy with continued evaluations and treatment. NANDINI and CKD -recent baseline around 3.0. Presents to serum creatinine 3.49, no improvement after 3 unit PRBC and 1 L of lactated Ringer's -nephrology consultation. Elevated BUN possibly due to GI bleed. Appreciate recommendations. Discharge when okay with Nephrology. Hamilton catheter removed. -continue intake/output monitoring and daily weights. Hypokalemia: 05/05/2025, replacing. Continue to monitor. Hypertension -at goal. Initially holding amlodipine and hydralazine due to GI bleed. -05/05/2025: Blood pressure is elevated, restart daily amlodipine. History of alcohol use disorder, seizure disorder -continue [employer] Keppra 750 mg p.o. b.i.d. Atrial fibrillation on anticoagulation, bradycardia -currently in sinus bradycardia. Hold [employer] labetalol -continue telemetry [id number] diabetes mellitus -Accu-Cheks q.6 hours with low-dose insulin sliding scale and hypoglycemia protocol Type 2 fracture of odontoid process -continue Arnold collar -continue PT/OT Leukocytosis -mild, continue to trend. Afebrile. Patient appears nontoxic, no evidence of active infection Hypothermia -on admission, received heating blanket/Alma Hugger, could have been due to anemia. Resolved. ----- Speech therapy, thickened liquids, pureed diet with 1 on 1 feeding. Tube feeds resume. Continue dietitian and speech therapy Hold [employer] Eliquis, SCDs Received 3 units PRBC in 1 L lactated Ringer's on admission. Saline lock IV Peripheral IV, PEG tube, Hamilton catheter removed DNR Stable on medical floor. Subjective Date/time seen: 05/06/25 15:47 Interval history: patient with dark tarry seen by GI suspect most likely due to AVM, and his hh now stable, does not need any work up, patient is cliniclly stabel seen speech therapiest recommending feeding via PEG, patient has not had any seizures while in the hospital, patient is present gave updates. No major acute overnight events. Patient complains of feeling thirsty and wants to drink. Denies chest pain. 84 y/o M with PMH of alcohol use disorder, hypertension, prostate cancer, hyperlipidemia, gout, CKD stage IV, seizures, dysphagia S/P peg placement, atrial fibrillation on anticoagulation, anemia of chronic disease, and type 2 diabetes presents here with anemia and bradycardia, melena, shortness of breath x2 days. The patient presents here from [facility] via EMS on 05/02 for further evaluation of low hemoglobin and bradycardia. Patient currently at [facility] after a recent admission at [facility] from 04/12/25 to 04/24/25. Seen at that time for altered mental status/new onset seizure disorder. Seizure suspected to be related to alcohol use or withdrawal, started on Keppra 750 mg twice daily. Patient additionally sustained a type 2 odontoid fracture for which he saw neuro surgery and was placed in an Arnold collar, follow-up with their service in 6 weeks and discharged to [facility] for PT/OT. Patient also failed MBS on 04/17 for which a PEG tube was placed on 04/20 and he was started on tube feeds, strict NPO, and to continue speech therapy at [facility]. Patient also developed new AFib during this admission for which he was restarted on labetalol for concurrent hypertension and he was started on anticoagulation, Eliquis. Additionally treated for CAP for which he did not require supplemental oxygen. Has since been at [facility] and has had un unremarkable recovery up to today when his Hgb was found to be 5.2, verified via repeat (4.8). Patient also noted to be bradycardic at 54. Per the patient's , he has been experiencing dark tarry stools for the past 4 days. patient with dark tarry seen by GI suspect most likely due to AVM, and his hh now stable, does not need any work up, patient is cliniclly stabel seen speech therapiest recommending feeding via PEG, patient has not had any seizures while in the hospital, patient is present gave updates. Review of Systems Review of Systems: All systems reviewed & are unremarkable except as noted in HPI and below (Subjective) Objective Data Vital Signs Vital Signs: Vital Signs - 24 hr 05/05/25 16:00 05/05/25 20:00 05/05/25 20:35 Temperature 36.3 C L 35.9 C L Pulse Rate 62 64 Respiratory Rate 16 18 Blood Pressure 143/59 H 157/59 H Pulse Oximetry 98 98 Oxygen Delivery Room Air 05/06/25 04:30 05/06/25 13:51 Temperature 35.8 C L 36.4 C L Pulse Rate 67 64 Respiratory Rate 16 16 Blood Pressure 151/59 H 158/70 H Pulse Oximetry 96 97 Oxygen Delivery Intake/Output Intake/Output: Intake & Output 05/03/25 05/04/25 05/05/25 05/06/25 23:59 23:59 23:59 23:59 Intake Total 950 414 026 9744 Output Total 1350 1650 2200 500 Balance -400 -1490 -1240 932 Meds/Results Medications: Active Medications Generic Name Dose Route Start Last Admin Trade Name Freq PRN Reason Stop Dose Admin Acetaminophen 650 mg 05/02/25 20:49 Acetaminophen Elixir 325 Mg/10.15 Ml Udc FEED TUBE Q4H PRN Mild Pain (1-3) or Fever Amlodipine Besylate 5 mg 05/05/25 17:25 05/06/25 08:28 Amlodipine Besylate 5 Mg Tablet FEED TUBE 5 mg DAILY OLENA Administration Amoxicillin/Clavulanate Potassium 500 mg 05/05/25 09:30 05/06/25 08:29 Amoxicillin/Clavulanate K Susp 500 Mg/6.25 Ml Ud PO 05/08/25 09:01 500 mg Q12HR OLENA Administration Dextrose 12.5 gm 05/02/25 20:20 Dextrose 50% 25 Gm/50 Ml Syringe IV PUSH PRN PRN Hypoglycemia Protocol Febuxostat 40 mg 05/06/25 09:00 05/06/25 08:28 Febuxostat 40 Mg Tablet FEED TUBE 40 mg DAILY OLENA Administration Furosemide 40 mg 05/03/25 09:00 05/06/25 08:28 Furosemide 40 Mg Tablet FEED TUBE 40 mg DAILY OLENA Administration Glucagon 1 mg 05/02/25 20:20 Glucagon For Inj 1 Mg Vial IM PRN PRN Hypoglycemia Protocol Glucose 15 gm 05/02/25 20:20 Glucose Oral Gel 15 Gm Of Glucse In 37.5 Gm Tube PO PRN PRN Hypoglycemia Protocol Dextrose 1,000 mls @ 100 mls/hr 05/02/25 20:20 Dextrose 5% 1,000 Ml IVPB PRN PRN Hypoglycemia Protocol Insulin Aspart 2 - 5 units 05/03/25 00:00 05/06/25 13:00 Insulin Aspart (*Bkc) 100 Units/Ml SUB-Q Not Given Q6HR OLENA Protocol Levetiracetam 750 mg 05/02/25 21:00 05/06/25 08:24 Levetiracetam Oral Pallavi 500 Mg/5 Ml Udc FEED TUBE 750 mg Q12HR OLENA Administration Simvastatin 40 mg 05/03/25 09:00 05/06/25 08:28 Simvastatin 20 Mg Tablet FEED TUBE 40 mg DAILY OLENA Administration Radiology Results: ITS Impressions Chest X-Ray 05/03/25 08:28 IMPRESSION: 1. Interstitial pulmonary edema and/or pneumonitis. 2. Bibasilar atelectasis and/or pleural effusions. Chest CT 05/03/25 09:17 IMPRESSION: 1. Diffuse lung disease, likely a combination of moderate pulmonary edema and pneumonia. 2. Moderate-sized pleural effusions. 3. Ascites. Renal Ultrasound 05/03/25 11:21 IMPRESSION: 1. No hydronephrosis. Modified Barium Swallow 05/04/25 13:53 IMPRESSION: Pharyngeal dysphagia with laryngeal penetration without aspiration. Please correlate with speech pathologist findings and specific feeding recommendations. Labs Labs: Laboratory Results - last 24 hr 05/05/25 05/05/25 05/06/25 15:31 17:04 00:17 WBC RBC Hgb Hct MCV MCH MCHC RDW Plt Count MPV Immature Gran % (Auto) Neut % (Auto) Lymph % (Auto) [place] % (Auto) Eos % (Auto) Baso % (Auto) Lymph # (Auto) [place] # (Auto) Eos # (Auto) Baso # (Auto) Abs Immat Gran (auto) Absolute Neuts (auto) Absolute Nucleated RBC Nucleated RBC % Sodium Potassium Chloride Carbon Dioxide Anion Gap BUN Creatinine Estim Creat Clear Calc Estimated GFR Glucose POC Capillary Glucose 210 H 159 H Calcium Magnesium Total Bilirubin AST ALT Alkaline Phosphatase Troponin I Cancelled Total Protein Albumin 05/06/25 05/06/25 05/06/25 05:00 05:13 12:10 WBC 12.0 H RBC 2.90 L Hgb 9.1 L Hct 27.3 L MCV 94.1 MCH 31.4 MCHC 33.3 RDW 14.9 H Plt Count 408 H MPV 9.9 Immature Gran % (Auto) 0.6 H Neut % (Auto) 75.3 H Lymph % (Auto) 8.8 L [place] % (Auto) 10.6 H Eos % (Auto) 4.4 Baso % (Auto) 0.3 Lymph # (Auto) 1.06 [place] # (Auto) 1.3 H Eos # (Auto) 0.5 H Baso # (Auto) 0.0 Abs Immat Gran (auto) 0.07 H Absolute Neuts (auto) 9.1 H Absolute Nucleated RBC 0.000 Nucleated RBC % 0.0 Sodium 136 L Potassium 3.2 L Chloride 101 Carbon Dioxide 23 Anion Gap 12 BUN 114 H* Creatinine 3.10 H Estim Creat Clear Calc 13 Estimated GFR 19 L Glucose 156 H POC Capillary Glucose 164 H 177 H Calcium 9.3 Magnesium 2.1 Total Bilirubin 0.6 AST 27 ALT 22 Alkaline Phosphatase 103 Troponin I Total Protein 6.7 Albumin 3.5 Quality VTE Prophylaxis VTE prophylaxis: mechanical ordered
--- NOTE | 2025-05-06 16:28 | WPDGIPROGNO ---
Progress Note: A&P Assessment and Plan (1) GI bleed: Qualifiers: GI bleed type/associated pathology: melena Qualified Code(s): K92.1 - Melena Code(s): K92.2 - Gastrointestinal hemorrhage, unspecified Status: Acute Assessment and Plan: from avm- treated with apc h/h stable, no more gib he is also tolerating tube feeding (2) AVM (arteriovenous malformation) of duodenum, acquired with hemorrhage: Code(s): K31.811 - Angiodysplasia of stomach and duodenum with bleeding Status: Acute Assessment and Plan: source of ugib no more recurrent gib (3) Dysphagia: Qualifiers: Dysphagia type: unspecified Qualified Code(s): R13.10 - Dysphagia, unspecified Code(s): R13.10 - Dysphagia, unspecified Status: Chronic Assessment and Plan: peg in place speech therapist on board (4) Melena: Code(s): K92.1 - Melena Status: Acute Assessment and Plan: resolved (5) Acute kidney injury superimposed on CKD: Code(s): N17.9 - Acute kidney failure, unspecified; N18.9 - Chronic kidney disease, unspecified Status: Acute (6) Acute on chronic anemia: Code(s): D64.9 - Anemia, unspecified Status: Acute Assessment and Plan: hgb stable after transfusion monitor for more signs of bleeding Subjective Date/time seen: 05/06/25 16:28 Interval history: no more bleeding with stable h/h tolerating tube feeding at 40 ml/h Review of Systems Review of Systems: All systems reviewed & are unremarkable except as noted in HPI and below Exam Narrative: Gen - NARD HEENT - normal nares Neck - neck brace in place Chest - clear anteriorly and in the flanks, nml RR CV - RRR S1/S2. Abd - soft. NT/ND. +BS. G-tube in place Ext - no pedal edema Neuro - alert and appropriate Skin - Warm, dry. Pallor Psy- normal affect Objective Data Vital Signs Vital Signs: Vital Signs - 24 hr 05/05/25 20:00 05/05/25 20:35 05/06/25 04:30 Temperature 96.6 F L 96.4 F L Pulse Rate 64 67 Respiratory Rate 18 16 Blood Pressure 157/59 H 151/59 H Pulse Oximetry 98 96 Oxygen Delivery Room Air 05/06/25 13:51 Temperature 97.5 F L Pulse Rate 64 Respiratory Rate 16 Blood Pressure 158/70 H Pulse Oximetry 97 Oxygen Delivery Intake/Output Intake/Output: Intake & Output 05/03/25 05/04/25 05/05/25 05/06/25 23:59 23:59 23:59 23:59 Intake Total 950 077 861 8437 Output Total 1350 1650 2200 500 Balance -400 -1490 -1240 932 Meds/Results Medications: Active Medications Generic Name Dose Route Start Last Admin Trade Name Freq PRN Reason Stop Dose Admin Acetaminophen 650 mg 05/02/25 20:49 Acetaminophen Elixir 325 Mg/10.15 Ml Udc FEED TUBE Q4H PRN Mild Pain (1-3) or Fever Amlodipine Besylate 5 mg 05/05/25 17:25 05/06/25 08:28 Amlodipine Besylate 5 Mg Tablet FEED TUBE 5 mg DAILY OLENA Administration Amoxicillin/Clavulanate Potassium 500 mg 05/05/25 09:30 05/06/25 08:29 Amoxicillin/Clavulanate K Susp 500 Mg/6.25 Ml Ud PO 05/08/25 09:01 500 mg Q12HR OLENA Administration Dextrose 12.5 gm 05/02/25 20:20 Dextrose 50% 25 Gm/50 Ml Syringe IV PUSH PRN PRN Hypoglycemia Protocol Febuxostat 40 mg 05/06/25 09:00 05/06/25 08:28 Febuxostat 40 Mg Tablet FEED TUBE 40 mg DAILY OLENA Administration Furosemide 40 mg 05/03/25 09:00 05/06/25 08:28 Furosemide 40 Mg Tablet FEED TUBE 40 mg DAILY OLENA Administration Glucagon 1 mg 05/02/25 20:20 Glucagon For Inj 1 Mg Vial IM PRN PRN Hypoglycemia Protocol Glucose 15 gm 05/02/25 20:20 Glucose Oral Gel 15 Gm Of Glucse In 37.5 Gm Tube PO PRN PRN Hypoglycemia Protocol Dextrose 1,000 mls @ 100 mls/hr 05/02/25 20:20 Dextrose 5% 1,000 Ml IVPB PRN PRN Hypoglycemia Protocol Insulin Aspart 2 - 5 units 05/03/25 00:00 05/06/25 13:00 Insulin Aspart (*Bkc) 100 Units/Ml SUB-Q Not Given Q6HR OLENA Protocol Levetiracetam 750 mg 05/02/25 21:00 05/06/25 08:24 Levetiracetam Oral Pallavi 500 Mg/5 Ml Udc FEED TUBE 750 mg Q12HR OLENA Administration Simvastatin 40 mg 05/03/25 09:00 05/06/25 08:28 Simvastatin 20 Mg Tablet FEED TUBE 40 mg DAILY OLENA Administration Radiology Results: ITS Impressions Chest X-Ray 05/03/25 08:28 IMPRESSION: 1. Interstitial pulmonary edema and/or pneumonitis. 2. Bibasilar atelectasis and/or pleural effusions. Chest CT 05/03/25 09:17 IMPRESSION: 1. Diffuse lung disease, likely a combination of moderate pulmonary edema and pneumonia. 2. Moderate-sized pleural effusions. 3. Ascites. Renal Ultrasound 05/03/25 11:21 IMPRESSION: 1. No hydronephrosis. Modified Barium Swallow 05/04/25 13:53 IMPRESSION: Pharyngeal dysphagia with laryngeal penetration without aspiration. Please correlate with speech pathologist findings and specific feeding recommendations. Labs Labs: Laboratory Results - last 24 hr 05/05/25 05/06/25 05/06/25 17:04 00:17 05:00 WBC 12.0 H RBC 2.90 L Hgb 9.1 L Hct 27.3 L MCV 94.1 MCH 31.4 MCHC 33.3 RDW 14.9 H Plt Count 408 H MPV 9.9 Immature Gran % (Auto) 0.6 H Neut % (Auto) 75.3 H Lymph % (Auto) 8.8 L [place] % (Auto) 10.6 H Eos % (Auto) 4.4 Baso % (Auto) 0.3 Lymph # (Auto) 1.06 [place] # (Auto) 1.3 H Eos # (Auto) 0.5 H Baso # (Auto) 0.0 Abs Immat Gran (auto) 0.07 H Absolute Neuts (auto) 9.1 H Absolute Nucleated RBC 0.000 Nucleated RBC % 0.0 Sodium 136 L Potassium 3.2 L Chloride 101 Carbon Dioxide 23 Anion Gap 12 BUN 114 H* Creatinine 3.10 H Estim Creat Clear Calc 13 Estimated GFR 19 L Glucose 156 H POC Capillary Glucose 210 H 159 H Calcium 9.3 Magnesium 2.1 Total Bilirubin 0.6 AST 27 ALT 22 Alkaline Phosphatase 103 Total Protein 6.7 Albumin 3.5 05/06/25 05/06/25 05:13 12:10 WBC RBC Hgb Hct MCV MCH MCHC RDW Plt Count MPV Immature Gran % (Auto) Neut % (Auto) Lymph % (Auto) [place] % (Auto) Eos % (Auto) Baso % (Auto) Lymph # (Auto) [place] # (Auto) Eos # (Auto) Baso # (Auto) Abs Immat Gran (auto) Absolute Neuts (auto) Absolute Nucleated RBC Nucleated RBC % Sodium Potassium Chloride Carbon Dioxide Anion Gap BUN Creatinine Estim Creat Clear Calc Estimated GFR Glucose POC Capillary Glucose 164 H 177 H Calcium Magnesium Total Bilirubin AST ALT Alkaline Phosphatase Total Protein Albumin
[2025-05-06 20:31] VITALS: BP 176/66; PULSE 78; RESP 18; TEMP 36.6; O2SAT 97
[2025-05-07 05:07] LABS: Hematocrit 26.6 % (42.0-52.0); Hemoglobin 9.0 g/dL (14.0-18.0); Immature Granulocyte Percent A 0.7 % (0-0.5); Lymphocytes Absolute Auto 0.94 K/mm3 (0.9-3.2); Mean Corpuscular HGB Conc 33.8 g/dl (32-36); Mean Corpuscular Hemoglobin 31.6 pg (26-34); Mean Corpuscular Volume 93.3 fl (80-100); Nucleated Red Blood Cells Absolute Auto 0.000 K/mm3 (0.0-0.012); Nucleated Red Blood Cells Perc 0.0 % (0.0-0.2); Platelet Count Result 416 k/mm3 (150-375); Red Blood Count 2.85 M/mm3 (4.6-6.20); White Blood Count 19.2 K/mm3 (4.5-10.0)
[2025-05-07 05:32] LABS: Albumin Level 3.4 g/dL (3.5-5.1); Anion Gap 12 mmol/L (4-12); Calcium 9.3 mg/dL (8.4-10.2); Carbon Dioxide 23 mmol/L (22-30); Chloride 102 mmol/L (98-107); Estimated CRCL calculation 14 ml/min; Estimated Glomerular Filt Rate 21; Glucose 169 mg/dL (65-110); Potassium 3.3 mmol/L (3.4-5.0); Sodium 137 mmol/L (137-145)
[2025-05-07 05:35] LABS: Blood Urea Nitrogen 114 mg/dL (9-20)
[2025-05-07 05:54] VITALS: BP 185/73; PULSE 90; RESP 18; TEMP 37.3; O2SAT 96
[2025-05-07] MEDS: levETIRAcetam ORAL SOL 500 MG/5 ML UDC 750 MG FEED TUBE ×2 (09:42→20:38)
[2025-05-07] MEDS: AMOXICILLIN/CLAVULANATE K SUSP 500 MG/6.25 ML UD PO ×2 (09:43→20:38)
[2025-05-07] MEDS: ACETAMINOPHEN ELIXIR 325 MG/10.15 ML UDC 650 MG FEED TUBE ×2 (09:43→16:31)
[2025-05-07] MEDS: FUROSEMIDE 40 MG TABLET FEED TUBE (09:44)
[2025-05-07] MEDS: FEBUXOSTAT 40 MG TABLET FEED TUBE (09:44)
[2025-05-07] MEDS: POTASSIUM CHLORIDE 20 MEQ PACKET (FOR LIQUID) 40 MEQ PO (09:44)
[2025-05-07] MEDS: SIMVASTATIN 20 MG TABLET 40 MG FEED TUBE (09:44)
--- NOTE | 2025-05-07 12:31 | P.PNNP_ITS ---
Progress Note: A&P Assessment and Plan (1) Acute kidney injury: Code(s): N17.9 - Acute kidney failure, unspecified Status: Acute Assessment and Plan: * slow improvement in BUN and creatinine.... * a bit worse from baseline (but has been this high before) * suspect due a few issues: * prerenal factors * severe anemia * pneumonia * other * evaluation to date noted: * renal u/s without obstruction * urine electrolytes are prerenal * UA without evidence of infection * proteinuria noted * CPK low * still making good urine output * follow trend of repeat labs and UOP (2) Stage 4 chronic kidney disease: Code(s): N18.4 - Chronic kidney disease, stage 4 (severe) Status: Chronic Assessment and Plan: * fluctuates to extremes at baseline... 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 with small amount of hematin in the lumen * s/p cauterization with APC * GI recommendations noted * holding Eliquis for 7 days following EGD * d/c'd PPI * follow trend of H/H (4) Shortness of breath: Code(s): R06.02 - Shortness of breath Status: Acute Assessment and Plan: * clinically seems better if not resolved * CT imaging noted: * moderate pulmonary edema * pneumonia * pleural effusions * ascites * viral testing for influenza/RSV/COVID negative * remains on oral diuretic therapy * off oxygen at this time * follow respiratory status (5) Anemia: Code(s): D64.9 - Anemia, unspecified Status: Acute Assessment and Plan: * partly related to NANDINI, CKD, and complicated by #3 * follow trend of H/H * consider THEO depending on trend of H/H (6) Pneumonia: Code(s): J18.9 - Pneumonia, unspecified organism Status: Acute Assessment and Plan: * as noted by admission imaging * on antibiotics * follow culture data (negative to date) (7) Atrial fibrillation: Qualifiers: Atrial fibrillation type: unspecified chronic Qualified Code(s): I48.20 - Chronic atrial fibrillation, unspecified Code(s): I48.91 - Unspecified atrial fibrillation Status: Chronic Assessment and Plan: * rate control strategy * Eliquis on hold (see #3) (8) Hyponatremia: Code(s): E87.1 - Hypo-osmolality and hyponatremia Status: Acute Assessment and Plan: * improving if not resolved * likely related to NANDINI on CKD * follow trend (9) Dysphagia: Qualifiers: Dysphagia type: unspecified Qualified Code(s): R13.10 - Dysphagia, unspecified Code(s): R13.10 - Dysphagia, unspecified Status: Chronic Assessment and Plan: * s/p PEG tube placement * speech therapy recommendations and MBS noted * on tube feedings (10) Hypertension: Code(s): I10 - Essential (primary) hypertension Status: Chronic Assessment and Plan: * running a bit elevated now * slowly resume BP medications * follow trend of hemodynamics (11) Diabetes mellitus: Qualifiers: Diabetes mellitus type: type 2 Diabetes mellitus senior care insulin use: without senior care use Diabetes mellitus complication status: with kidney complications Diabetes mellitus complication detail: with chronic kidney disease Chronic kidney disease stage: stage 4 (severe) Qualified Code(s): E 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; N18.4 - Chronic kidney disease, stage 4 (severe) Code(s): E11.9 - Type 2 diabetes mellitus without complications Status: Chronic Assessment and Plan: * follow accu-cheks * glycemic control per hospitalist (12) Type II fracture of odontoid process: Qualifiers: Encounter type: subsequent encounter Fracture type: closed Fracture alignment: nondisplaced Fracture healing: with routine healing Qualified Code(s): S12.112D - Nondisplaced Type II dens fracture, subsequent encounter for fracture with routine healing Code(s): S12.110A - Anterior displaced Type II dens fracture, initial encounter for closed fracture Status: Chronic Assessment and Plan: * as noted on previous imaging * conservative therapy per Neurosurgery * Simpson collar in place * ongoing PT/OT Will continue to follow. L Subjective Date/time seen: 05/07/25 12:31 Interval history: Follow-up for acute kidney injury/acute renal failure on chronic kidney disease. Renal function/creatinine slowly getting better although BUN is slow to improve; hemoglobin remains relatively stable but noted rise in WBC; no apparent distress noted at the time of my visit; no issues/events overnight or earlier this AM. Exam 2 Narrative: General: elderly but WD/WN male in NAD; Simpson collar in place Heart: normal S1 and S2; no rub Lungs: clear anteriorly Abdomen: soft, nontender, nondistended, positive bowel sounds Extremities: no cyanosis or clubbing; no edema Skin: no nodules Objective Data Vital Signs Vital Signs: Vital Signs Temp Pulse Resp BP Pulse Ox O2 Del Method 05/07/25 12:06 97.2 F L 78 16 170/95 H 97 05/07/25 08:00 Room Air 05/07/25 05:54 99.1 F 90 18 185/73 H 96 05/06/25 20:31 98 F 78 18 176/66 H 97 Intake/Output Intake/Output: Intake & Output 05/04/25 05/05/25 05/06/25 05/07/25 23:59 23:59 23:59 23:59 Intake Total 095 606 9198 794 Output Total 1650 2200 1400 1550 Balance -1490 -1240 32 -756 Meds/Results Medications: Active Medications Generic Name Dose Route Start Last Admin Trade Name Freq PRN Reason Stop Dose Admin Acetaminophen 650 mg 05/02/25 20:49 05/07/25 16:31 Acetaminophen Elixir 325 Mg/10.15 Ml Udc FEED TUBE 650 mg Q4H PRN Administration Mild Pain (1-3) or Fever Amlodipine Besylate 5 mg 05/05/25 17:25 05/07/25 09:44 Amlodipine Besylate 5 Mg Tablet FEED TUBE 5 mg DAILY OLENA Administration Amoxicillin/Clavulanate Potassium 500 mg 05/05/25 09:30 05/07/25 09:43 Amoxicillin/Clavulanate K Susp 500 Mg/6.25 Ml Ud PO 05/08/25 09:01 500 mg Q12HR OLENA Administration Dextrose 12.5 gm 05/02/25 20:20 Dextrose 50% 25 Gm/50 Ml Syringe IV PUSH PRN PRN Hypoglycemia Protocol Febuxostat 40 mg 05/06/25 09:00 05/07/25 09:44 Febuxostat 40 Mg Tablet FEED TUBE 40 mg DAILY OLENA Administration Furosemide 40 mg 05/03/25 09:00 05/07/25 09:44 Furosemide 40 Mg Tablet FEED TUBE 40 mg DAILY OLENA Administration Glucagon 1 mg 05/02/25 20:20 Glucagon For Inj 1 Mg Vial IM PRN PRN Hypoglycemia Protocol Glucose 15 gm 05/02/25 20:20 Glucose Oral Gel 15 Gm Of Glucse In 37.5 Gm Tube PO PRN PRN Hypoglycemia Protocol Dextrose 1,000 mls @ 100 mls/hr 05/02/25 20:20 Dextrose 5% 1,000 Ml IVPB PRN PRN Hypoglycemia Protocol Insulin Aspart 2 - 5 units 05/03/25 00:00 05/07/25 18:54 Insulin Aspart (*Bkc) 100 Units/Ml SUB-Q 2 units Q6HR OLENA Administration Protocol Levetiracetam 750 mg 05/02/25 21:00 05/07/25 09:42 Levetiracetam Oral Pallavi 500 Mg/5 Ml Udc FEED TUBE 750 mg Q12HR OLENA Administration Simvastatin 40 mg 05/03/25 09:00 05/07/25 09:44 Simvastatin 20 Mg Tablet FEED TUBE 40 mg DAILY OLENA Administration Radiology Results: ITS Impressions Chest CT 05/03/25 09:17 IMPRESSION: 1. Diffuse lung disease, likely a combination of moderate pulmonary edema and pneumonia. 2. Moderate-sized pleural effusions. 3. Ascites. Renal Ultrasound 05/03/25 11:21 IMPRESSION: 1. No hydronephrosis. Modified Barium Swallow 05/04/25 13:53 IMPRESSION: Pharyngeal dysphagia with laryngeal penetration without aspiration. Please correlate with speech pathologist findings and specific feeding recommendations. Chest X-Ray 05/07/25 11:04 Impression: CHF. Superimposed probable pneumonia Labs Labs: Laboratory Tests 05/07/25 04:54 05/07/25 04:54 Calcium 9.3 Phosphorus 4.1 Albumin 3.4 L Microbiology 05/03/25 17:44 Urine - Urine [place] Specimen Source - Final 05/03/25 17:44 Urine - Urine [place] Streptococcus pneumoniae Ag Screen - Final 05/03/25 17:44 Urine - Urine [place] Sterile Body Fluid Culture - Final 05/03/25 17:44 Urine - Urine [place] Organism Identification - Final 05/03/25 17:44 Urine - Urine [place] Microbiology Comment - Final
--- NOTE | 2025-05-07 12:57 | P.PNIM_ITS ---
Progress Note: A&P Assessment and Plan (1) Atrial fibrillation: Qualifiers: Atrial fibrillation type: unspecified chronic Qualified Code(s): I48.20 - Chronic atrial fibrillation, unspecified Code(s): I48.91 - Unspecified atrial fibrillation Status: Chronic (2) Alcohol abuse: Code(s): F10.10 - Alcohol abuse, uncomplicated Status: Acute (3) Acute kidney injury superimposed on CKD: Code(s): N17.9 - Acute kidney failure, unspecified; N18.9 - Chronic kidney disease, unspecified Status: Acute (4) Anemia: Code(s): D64.9 - Anemia, unspecified Status: Acute (5) Shortness of breath: Code(s): R06.02 - Shortness of breath Status: Acute Plan patient with dark tarry seen by GI suspect most likely due to AVM, and his hh now stable, does not need any work up, patient is cliniclly stabel seen speech therapist recommending feeding via PEG, patient has not had any seizures while in the hospital, patient is present gave updates. Patient white counts trending up, has difficulty with swolloing, x-ray today concerning for pnuemonia, patient is treated with augement, currently NPO, will switch with Zosyn, will monitor, and plan. his is present gave updates. 84 y/o M with PMH of alcohol use disorder, hypertension, prostate cancer, hyperlipidemia, gout, CKD stage IV, seizures, dysphagia S/P peg placement, atrial fibrillation on anticoagulation, anemia of chronic disease, and type 2 diabetes presents here with anemia and bradycardia, melena, shortness of breath x2 days. The patient presents here from [facility] via EMS on 05/02 for further evaluation of low hemoglobin and bradycardia. Patient currently at [facility] after a recent admission at [facility] from 04/12/25 to 04/24/25. Seen at that time for altered mental status/new onset seizure disorder. Seizure suspected to be related to alcohol use or withdrawal, started on Keppra 750 mg twice daily. Patient additionally sustained a type 2 odontoid fracture for which he saw neuro surgery and was placed in an [place] collar, follow-up with their service in 6 weeks and discharged to [facility] for PT/OT. Patient also failed MBS on 04/17 for which a PEG tube was placed on 04/20 and he was started on tube feeds, strict NPO, and to continue speech therapy at [facility]. Patient also developed new AFib during this admission for which he was restarted on labetalol for concurrent hypertension and he was started on anticoagulation, Eliquis. Additionally treated for CAP for which he did not require supplemental oxygen. Has since been at [facility] and has had un unremarkable recovery up to today when his Hgb was found to be 5.2, verified via repeat (4.8). Patient also noted to be bradycardic at 54. Per the patient's , he has been experiencing dark tarry stools for the past 4 days. Initial VS at presentation: 97.9? F, HR 54, R 19, 111/54, and 100% on RA. ED workup showed: WBC 10.5, hemoglobin 4.6 (previously 7.5 on 04/25), INR 1.6, sodium 131, creatinine 3.57 and GFR 17 (previously 2.87 and GFR 21 on 04/25), glucose 142, albumin 2.9. ----- Shortness of breath -reported of shortness of breath transiently on 05/03/2025. Chest CT demonstrated diffuse lung disease likely a combination of moderate pulmonary edema and pneumonia, moderate-size pleural effusions, ascites -patient did received 3 units PRBC. Quad viral screen negative. Respiratory pathogen panel pending. Mycoplasma IgM negative. -required O2 transiently. Has been breathing well since on room air. Continue ANALY[employer]ICAL [employer]EARCH CHEMIST Lasix 40 mg via feeding tube daily. Melena, acute anemia on chronic anemia -GI consulted. Status post 3 units PRBC. 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 Lesion was cauterized with APC. GI recommended restarting tube feeding, holding Eliquis for 7 days status post EGD. Discontinue Protonix. Hemoglobin has been stable. Dysphagia status post PEG placement -speech therapy consulted, modified barium swallow completed on 05/04/2025 after EGD, demonstrates pharyngeal dysphagia with laryngeal penetration without aspiration. Feeding tubes restarted, 1 on 1 oral feeding per speech therapy with continued evaluations and treatment. NANDINI and CKD -recent baseline around 3.0. Presents to serum creatinine 3.49, no improvement after 3 unit PRBC and 1 L of lactated Ringer's -nephrology consultation. Elevated BUN possibly due to GI bleed. Appreciate recommendations. Discharge when okay with Nephrology. Hamilton catheter removed. -continue intake/output monitoring and daily weights. Hypokalemia: 05/05/2025, replacing. Continue to monitor. Hypertension -at goal. Initially holding amlodipine and hydralazine due to GI bleed. -05/05/2025: Blood pressure is elevated, restart daily amlodipine. History of alcohol use disorder, seizure disorder -continue ANALYTICAL RESEARCH CHEMIST Keppra 750 mg p.o. b.i.d. Atrial fibrillation on anticoagulation, bradycardia -currently in sinus bradycardia. Hold ANALYTICAL RESEARCH CHEMIST labetalol -continue telemetry [id number] diabetes mellitus -Accu-Cheks q.6 hours with low-dose insulin sliding scale and hypoglycemia protocol Type 2 fracture of odontoid process -continue [place] collar -continue PT/OT Leukocytosis -mild, continue to trend. Afebrile. Patient appears nontoxic, no evidence of active infection Hypothermia -on admission, received heating blanket/Alma Hugger, could have been due to anemia. Resolved. ----- Speech therapy, thickened liquids, pureed diet with 1 on 1 feeding. Tube feeds resume. Continue dietitian and speech therapy Hold ANALYTICAL RESEARCH CHEMIST Eliquis, SCDs Received 3 units PRBC in 1 L lactated Ringer's on admission. Saline lock IV Peripheral IV, PEG tube, Hamilton catheter removed DNR Stable on medical floor. Subjective Date/time seen: 05/07/25 12:57 Interval history: patient with dark tarry seen by GI suspect most likely due to AVM, and his hh now stable, does not need any work up, patient is cliniclly stabel seen speech therapiest recommending feeding via PEG, patient has not had any seizures while in the hospital, patient is present gave updates. No major acute overnight events. Patient complains of feeling thirsty and wants to drink. Denies chest pain. 84 y/o M with PMH of alcohol use disorder, hypertension, prostate cancer, hyperlipidemia, gout, CKD stage IV, seizures, dysphagia S/P peg placement, atrial fibrillation on anticoagulation, anemia of chronic disease, and type 2 diabetes presents here with anemia and bradycardia, melena, shortness of breath x2 days. The patient presents here from [facility] via EMS on 05/02 for further evaluation of low hemoglobin and bradycardia. Patient currently at [facility] after a recent admission at [facility] from 04/12/25 to 04/24/25. Seen at that time for altered mental status/new onset seizure disorder. Seizure suspected to be related to alcohol use or withdrawal, started on Keppra 750 mg twice daily. Patient additionally sustained a type 2 odontoid fracture for which he saw neuro surgery and was placed in an [place] collar, follow-up with their service in 6 weeks and discharged to [facility] for PT/OT. Patient also failed MBS on 04/17 for which a PEG tube was placed on 04/20 and he was started on tube feeds, strict NPO, and to continue speech therapy at [facility]. Patient also developed new AFib during this admission for which he was restarted on labetalol for concurrent hypertension and he was started on anticoagulation, Eliquis. Additionally treated for CAP for which he did not require supplemental oxygen. Has since been at [facility] and has had un unremarkable recovery up to today when his Hgb was found to be 5.2, verified via repeat (4.8). Patient also noted to be bradycardic at 54. Per the patient's , he has been experiencing dark tarry stools for the past 4 days. patient with dark tarry seen by GI suspect most likely due to AVM, and his hh now stable, does not need any work up, patient is cliniclly stabel seen speech therapist recommending feeding via PEG, patient has not had any seizures while in the hospital, patient is present gave updates. Patient white counts trending up, has difficulty with swolloing, x-ray today concerning for pnuemonia, patient is treated with augement, currently NPO, will switch with Zosyn, will monitor, and plan. his is present gave updates. Review of Systems Review of Systems: All systems reviewed & are unremarkable except as noted in HPI and below (Subjective) Objective Data Vital Signs Vital Signs: Vital Signs - 24 hr 05/06/25 13:51 05/06/25 20:31 05/07/25 05:54 Temperature 36.4 C L 36.6 C 37.3 C Pulse Rate 64 78 90 Respiratory Rate 16 18 18 Blood Pressure 158/70 H 176/66 H 185/73 H Pulse Oximetry 97 97 96 Oxygen Delivery 05/07/25 08:00 Temperature Pulse Rate Respiratory Rate Blood Pressure Pulse Oximetry Oxygen Delivery Room Air Intake/Output Intake/Output: Intake & Output 05/04/25 05/05/25 05/06/25 05/07/25 23:59 23:59 23:59 23:59 Intake Total 963 298 8781 794 Output Total 1650 2200 1400 1100 Balance -1490 -1240 32 -306 Meds/Results Medications: Active Medications Generic Name Dose Route Start Last Admin Trade Name Freq PRN Reason Stop Dose Admin Acetaminophen 650 mg 05/02/25 20:49 05/07/25 09:43 Acetaminophen Elixir 325 Mg/10.15 Ml Udc FEED TUBE 650 mg Q4H PRN Administration Mild Pain (1-3) or Fever Amlodipine Besylate 5 mg 05/05/25 17:25 05/07/25 09:44 Amlodipine Besylate 5 Mg Tablet FEED TUBE 5 mg DAILY OLENA Administration Amoxicillin/Clavulanate Potassium 500 mg 05/05/25 09:30 05/07/25 09:43 Amoxicillin/Clavulanate K Susp 500 Mg/6.25 Ml Ud PO 05/08/25 09:01 500 mg Q12HR OLENA Administration Dextrose 12.5 gm 05/02/25 20:20 Dextrose 50% 25 Gm/50 Ml Syringe IV PUSH PRN PRN Hypoglycemia Protocol Febuxostat 40 mg 05/06/25 09:00 05/07/25 09:44 Febuxostat 40 Mg Tablet FEED TUBE 40 mg DAILY OLENA Administration Furosemide 40 mg 05/03/25 09:00 05/07/25 09:44 Furosemide 40 Mg Tablet FEED TUBE 40 mg DAILY OLENA Administration Glucagon 1 mg 05/02/25 20:20 Glucagon For Inj 1 Mg Vial IM PRN PRN Hypoglycemia Protocol Glucose 15 gm 05/02/25 20:20 Glucose Oral Gel 15 Gm Of Glucse In 37.5 Gm Tube PO PRN PRN Hypoglycemia Protocol Dextrose 1,000 mls @ 100 mls/hr 05/02/25 20:20 Dextrose 5% 1,000 Ml IVPB PRN PRN Hypoglycemia Protocol Insulin Aspart 2 - 5 units 05/03/25 00:00 05/07/25 05:51 Insulin Aspart (*Bkc) 100 Units/Ml SUB-Q Not Given Q6HR OLENA Protocol Levetiracetam 750 mg 05/02/25 21:00 05/07/25 09:42 Levetiracetam Oral Pallavi 500 Mg/5 Ml Udc FEED TUBE 750 mg Q12HR OLENA Administration Simvastatin 40 mg 05/03/25 09:00 05/07/25 09:44 Simvastatin 20 Mg Tablet FEED TUBE 40 mg DAILY OLENA Administration Radiology Results: ITS Impressions Chest CT 05/03/25 09:17 IMPRESSION: 1. Diffuse lung disease, likely a combination of moderate pulmonary edema and pneumonia. 2. Moderate-sized pleural effusions. 3. Ascites. Renal Ultrasound 05/03/25 11:21 IMPRESSION: 1. No hydronephrosis. Modified Barium Swallow 05/04/25 13:53 IMPRESSION: Pharyngeal dysphagia with laryngeal penetration without aspiration. Please correlate with speech pathologist findings and specific feeding recommendations. Chest X-Ray 05/07/25 11:04 Impression: CHF. Superimposed probable pneumonia Labs Labs: Laboratory Results - last 24 hr 05/06/25 05/07/25 05/07/25 18:23 00:00 04:18 WBC RBC Hgb Hct MCV MCH MCHC RDW Plt Count MPV Immature Gran % (Auto) Neut % (Auto) Lymph % (Auto) [place] % (Auto) Eos % (Auto) Baso % (Auto) Lymph # (Auto) [place] # (Auto) Eos # (Auto) Baso # (Auto) Abs Immat Gran (auto) Absolute Neuts (auto) Absolute Nucleated RBC Nucleated RBC % Sodium Potassium Chloride Carbon Dioxide Anion Gap BUN Creatinine Estim Creat Clear Calc Estimated GFR Glucose POC Capillary Glucose 171 H 186 H 170 H Calcium Phosphorus Albumin 05/07/25 05/07/25 04:54 12:13 WBC 19.2 H RBC 2.85 L Hgb 9.0 L Hct 26.6 L MCV 93.3 MCH 31.6 MCHC 33.8 RDW 14.6 H Plt Count 416 H MPV 9.5 Immature Gran % (Auto) 0.7 H Neut % (Auto) 82.3 H Lymph % (Auto) 4.9 L [place] % (Auto) 10.8 H Eos % (Auto) 1.1 Baso % (Auto) 0.2 Lymph # (Auto) 0.94 [place] # (Auto) 2.1 H Eos # (Auto) 0.2 Baso # (Auto) 0.0 Abs Immat Gran (auto) 0.14 H Absolute Neuts (auto) 15.8 H Absolute Nucleated RBC 0.000 Nucleated RBC % 0.0 Sodium 137 Potassium 3.3 L Chloride 102 Carbon Dioxide 23 Anion Gap 12 BUN 114 H* Creatinine 2.91 H Estim Creat Clear Calc 14 Estimated GFR 21 L Glucose 169 H POC Capillary Glucose 256 H Calcium 9.3 Phosphorus 4.1 Albumin 3.4 L Quality VTE Prophylaxis VTE prophylaxis: mechanical ordered
[2025-05-07] MEDS: INSULIN ASPART (*BKC) 100 UNITS/ML SUB-Q ×2 (13:29→18:54)
[2025-05-07 13:56] VITALS: BP 170/95; PULSE 78; RESP 16; TEMP 36.2; O2SAT 97
[2025-05-07 16:47] LABS: Add Urine Microscopic? YES; Appearance Urine Clear (Clear); Glucose Urine UA 1+ mg/dL (Negative); Leukocyte Esterase Ur Negative LEU/UL (Negative); Nitrate Urine Negative (Negative); Non Pathogenic Casts 0-2; Specific Grav Ur 1.014 (1.001-1.035)
[2025-05-07 20:00] VITALS: PULSE 78; RESP 16; O2SAT 97
[2025-05-07 20:40] VITALS: BP 133/48; PULSE 65; RESP 20; TEMP 35.9; O2SAT 98
[2025-05-08 05:30] VITALS: BP 152/55; PULSE 84; RESP 20; TEMP 36.1; O2SAT 98
[2025-05-08 06:10] LABS: Hematocrit 25.8 % (42.0-52.0); Hemoglobin 8.3 g/dL (14.0-18.0); Immature Granulocyte Percent A 1.0 % (0-0.5); Lymphocytes Absolute Auto 0.97 K/mm3 (0.9-3.2); Mean Corpuscular HGB Conc 32.2 g/dl (32-36); Mean Corpuscular Hemoglobin 31.0 pg (26-34); Mean Corpuscular Volume 96.3 fl (80-100); Nucleated Red Blood Cells Absolute Auto 0.000 K/mm3 (0.0-0.012); Nucleated Red Blood Cells Perc 0.0 % (0.0-0.2); Platelet Count Result 348 k/mm3 (150-375); Red Blood Count 2.68 M/mm3 (4.6-6.20); White Blood Count 21.8 K/mm3 (4.5-10.0)
[2025-05-08 07:12] LABS: Albumin Level 3.2 g/dL (3.5-5.1); Anion Gap 11 mmol/L (4-12); Blood Urea Nitrogen 117 mg/dL (9-20); Calcium 9.7 mg/dL (8.4-10.2); Carbon Dioxide 23 mmol/L (22-30); Chloride 102 mmol/L (98-107); Estimated CRCL calculation 13 ml/min; Estimated Glomerular Filt Rate 20; Glucose 172 mg/dL (65-110); Potassium 3.4 mmol/L (3.4-5.0); Sodium 136 mmol/L (137-145)
[2025-05-08] MEDS: FEBUXOSTAT 40 MG TABLET FEED TUBE (09:46)
[2025-05-08] MEDS: levETIRAcetam ORAL SOL 500 MG/5 ML UDC 750 MG FEED TUBE ×2 (09:47→21:37)
[2025-05-08] MEDS: SIMVASTATIN 20 MG TABLET 40 MG FEED TUBE (09:47)
[2025-05-08] MEDS: AMOXICILLIN/CLAVULANATE K SUSP 500 MG/6.25 ML UD PO (09:47)
[2025-05-08] MEDS: FUROSEMIDE 40 MG TABLET FEED TUBE (09:47)
[2025-05-08 10:10] VITALS: BMI 10.0
--- NOTE | 2025-05-08 12:36 | PCNFU ---
Nutrition Follow-Up Complete: Inadequate energy intake related to NPO status as evidenced by current diet orders Goal:Meet estimated needs. Pt meeting goal via tube feeding Pt current nutrition is Strict NPO, Tube feeding: Nepro @ 40ml/hr with 100ml water flush q 4 hrs, pt tolerating. This is providing 1584kcals, 71g protein, 1239ml free water. Nutrition recommendation: continue with current plan of care Last recorded weight is 56.8 kg. Bowel Motility: +BM 05/07 Labs Reviewed: Hgb:8.3, HCT:25.8, Alb:3.2, NA:136, BUN:117, Cr:2.99, Glu:172 Meds Noted: lasix Skin: WNL Additional Notes: Pt continues on tube feeding, tolerating well and currently meeting estimated needs. Strict NPO orders. Agree with orders. Monitor tube feeding, tolerance, wt, labs. Follow up every sunday and sunday
[2025-05-08] MEDS: LIDOCAINE 5% PATCH 1 PATCH TRANSDERM (13:08)
--- NOTE | 2025-05-08 13:40 | P.PNNP_ITS ---
Progress Note: A&P Assessment and Plan (1) Acute kidney injury: Code(s): N17.9 - Acute kidney failure, unspecified Status: Acute Assessment and Plan: * slow improvement in creatinine.... * a bit worse from baseline (but has been this high before) * suspect due a few issues: * prerenal factors * severe anemia * pneumonia * other * evaluation to date noted: * renal u/s without obstruction * urine electrolytes are prerenal * UA without evidence of infection * proteinuria noted * CPK low * still making good urine output * azotemia/elevated BUN noted -- likely due to #3; something else contributing(?) * follow trend of repeat labs and UOP (2) Stage 4 chronic kidney disease: Code(s): N18.4 - Chronic kidney disease, stage 4 (severe) Status: Chronic Assessment and Plan: * fluctuates to extremes at baseline... 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 with small amount of hematin in the lumen * s/p cauterization with APC * GI recommendations noted * holding Eliquis for 7 days following EGD * d/c'd PPI * suspected etiology of elevated BUN/azotemia * follow trend of H/H (4) Shortness of breath: Code(s): R06.02 - Shortness of breath Status: Acute Assessment and Plan: * clinically seems better if not resolved * CT imaging noted: * moderate pulmonary edema * pneumonia * pleural effusions * ascites * viral testing for influenza/RSV/COVID negative * remains on oral diuretic therapy * off oxygen at this time * follow respiratory status (5) Anemia: Code(s): D64.9 - Anemia, unspecified Status: Acute Assessment and Plan: * partly related to NANDINI, CKD, and complicated by #3 * follow trend of H/H * consider THEO depending on trend of H/H (6) Pneumonia: Code(s): J18.9 - Pneumonia, unspecified organism Status: Acute Assessment and Plan: * as noted by admission imaging * follow culture data (negative to date) * completed course of antibiotics (7) Atrial fibrillation: Qualifiers: Atrial fibrillation type: unspecified chronic Qualified Code(s): I48.20 - Chronic atrial fibrillation, unspecified Code(s): I48.91 - Unspecified atrial fibrillation Status: Chronic Assessment and Plan: * rate control strategy * Eliquis on hold (see #3) (8) Hyponatremia: Code(s): E87.1 - Hypo-osmolality and hyponatremia Status: Acute Assessment and Plan: * improving if not resolved * likely related to NANDINI on CKD * follow trend (9) Dysphagia: Qualifiers: Dysphagia type: unspecified Qualified Code(s): R13.10 - Dysphagia, unspecified Code(s): R13.10 - Dysphagia, unspecified Status: Chronic Assessment and Plan: * s/p PEG tube placement * speech therapy recommendations and MBS noted * on tube feedings (10) Hypertension: Code(s): I10 - Essential (primary) hypertension Status: Chronic Assessment and Plan: * running a bit elevated now * slowly resume BP medications * follow trend of hemodynamics (11) Diabetes mellitus: Qualifiers: Diabetes mellitus type: type 2 Diabetes mellitus retirement insulin use: without intermediate manager use Diabetes mellitus complication status: with kidney complications Diabetes mellitus complication detail: with chronic kidney disease Chronic kidney disease stage: stage 4 (severe) Qualified Code(s): E 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; N18.4 - Chronic kidney disease, stage 4 (severe) Code(s): E11.9 - Type 2 diabetes mellitus without complications Status: Chronic Assessment and Plan: * follow accu-cheks * glycemic control per hospitalist (12) Type II fracture of odontoid process: Qualifiers: Encounter type: subsequent encounter Fracture type: closed Fracture alignment: nondisplaced Fracture healing: with routine healing Qualified Code(s): S12.112D - Nondisplaced Type II dens fracture, subsequent encounter for fracture with routine healing Code(s): S12.110A - Anterior displaced Type II dens fracture, initial encounter for closed fracture Status: Chronic Assessment and Plan: * as noted on previous imaging * conservative therapy per Neurosurgery * [place] collar in place * ongoing PT/OT Will continue to follow. L Subjective Date/time seen: 05/08/25 13:40 Interval history: Follow-up for acute kidney injury/acute renal failure on chronic kidney disease. Renal function/creatinine appear relatively stable but BUN remains elevated (slightly higher from yesterday as well); major complaint on my visit is that of left leg/knee pain making it difficult for him to ambulate or event move it; trend of WBC noted as well; no other acute issues voiced at the time of my visit. Exam 2 Narrative: General: elderly but WD/WN male in NAD; [place] collar in place Heart: normal S1 and S2; no rub Lungs: clear anteriorly Abdomen: soft, nontender, nondistended, positive bowel sounds Extremities: no cyanosis or clubbing; no edema Skin: warm and dry Objective Data Vital Signs Vital Signs: Vital Signs Temp Pulse Resp BP Pulse Ox O2 Del Method FiO2 05/08/25 13:00 97.8 F 80 16 160/63 H 98 05/08/25 08:00 Room Air 05/08/25 05:30 97 F L 84 20 152/55 H 98 05/07/25 20:40 96.6 F L 65 20 133/48 L 98 05/07/25 20:00 78 16 97 Room Air 21 Intake/Output Intake/Output: Intake & Output 05/05/25 05/06/25 05/07/25 05/08/25 23:59 23:59 23:59 23:59 Intake Total 960 1432 794 0 Output Total 2200 1400 1550 400 Balance -1240 32 -756 -400 Meds/Results Medications: Active Medications Generic Name Dose Route Start Last Admin Trade Name Freq PRN Reason Stop Dose Admin Acetaminophen 650 mg 05/02/25 20:49 05/07/25 16:31 Acetaminophen Elixir 325 Mg/10.15 Ml Udc FEED TUBE 650 mg Q4H PRN Administration Mild Pain (1-3) or Fever Amlodipine Besylate 5 mg 05/05/25 17:25 05/08/25 09:46 Amlodipine Besylate 5 Mg Tablet FEED TUBE 5 mg DAILY OLENA Administration Dextrose 12.5 gm 05/02/25 20:20 Dextrose 50% 25 Gm/50 Ml Syringe IV PUSH PRN PRN Hypoglycemia Protocol Febuxostat 40 mg 05/06/25 09:00 05/08/25 09:46 Febuxostat 40 Mg Tablet FEED TUBE 40 mg DAILY OLENA Administration Furosemide 40 mg 05/03/25 09:00 05/08/25 09:47 Furosemide 40 Mg Tablet FEED TUBE 40 mg DAILY OLENA Administration Glucagon 1 mg 05/02/25 20:20 Glucagon For Inj 1 Mg Vial IM PRN PRN Hypoglycemia Protocol Glucose 15 gm 05/02/25 20:20 Glucose Oral Gel 15 Gm Of Glucse In 37.5 Gm Tube PO PRN PRN Hypoglycemia Protocol Dextrose 1,000 mls @ 100 mls/hr 05/02/25 20:20 Dextrose 5% 1,000 Ml IVPB PRN PRN Hypoglycemia Protocol Insulin Aspart 2 - 5 units 05/03/25 00:00 05/08/25 11:41 Insulin Aspart (*Bkc) 100 Units/Ml SUB-Q Not Given Q6HR OLENA Protocol Levetiracetam 750 mg 05/02/25 21:00 05/08/25 09:47 Levetiracetam Oral Pallavi 500 Mg/5 Ml Udc FEED TUBE 750 mg Q12HR OLENA Administration Lidocaine 1 patch 05/08/25 09:00 05/08/25 13:08 Lidocaine 5% Patch TRANSDERM 1 patch DAILY OLENA Administration Simvastatin 40 mg 05/03/25 09:00 05/08/25 09:47 Simvastatin 20 Mg Tablet FEED TUBE 40 mg DAILY OLENA Administration Radiology Results: ITS Impressions Chest CT 05/03/25 09:17 IMPRESSION: 1. Diffuse lung disease, likely a combination of moderate pulmonary edema and pneumonia. 2. Moderate-sized pleural effusions. 3. Ascites. Renal Ultrasound 05/03/25 11:21 IMPRESSION: 1. No hydronephrosis. Modified Barium Swallow 05/04/25 13:53 IMPRESSION: Pharyngeal dysphagia with laryngeal penetration without aspiration. Please correlate with speech pathologist findings and specific feeding recommendations. Chest X-Ray 05/07/25 11:04 Impression: CHF. Superimposed probable pneumonia Knee X-Ray 05/08/25 14:06 IMPRESSION: 1. Tricompartmental degenerative changes; calcification in the menisci could be associated with pseudogout or CPPD. 2. Extensive vascular calcification may be associated with peripheral artery disease. Labs Labs: Laboratory Tests 05/08/25 05:20 05/08/25 05:20 Calcium 9.7 Phosphorus 4.0 Albumin 3.2 L
[2025-05-08 14:00] VITALS: BP 160/63; PULSE 80; RESP 16; TEMP 36.6; O2SAT 98
--- NOTE | 2025-05-08 14:36 | PM.IMPN ---
Progress Note: A&P Assessment and Plan (1) Atrial fibrillation: Qualifiers: Atrial fibrillation type: unspecified chronic Qualified Code(s): I48.20 - Chronic atrial fibrillation, unspecified Code(s): I48.91 - Unspecified atrial fibrillation Status: Chronic (2) Alcohol abuse: Code(s): F10.10 - Alcohol abuse, uncomplicated Status: Acute (3) Acute kidney injury superimposed on CKD: Code(s): N17.9 - Acute kidney failure, unspecified; N18.9 - Chronic kidney disease, unspecified Status: Acute (4) Anemia: Code(s): D64.9 - Anemia, unspecified Status: Acute (5) Shortness of breath: Code(s): R06.02 - Shortness of breath Status: Acute Plan patient with dark tarry seen by GI suspect most likely due to AVM, and his hh now stable, will continue to monitor. Recommending feeding via PEG, patient has not had any seizures while in the hospital Patient white counts trending up, has difficulty with swallowing, x-ray today concerning for pnuemonia, patient is treated with Augmentin, currently NPO, will switch with Zosyn, will monitor, and plan. his is present gave updates. 84 y/o M with PMH of alcohol use disorder, hypertension, prostate cancer, hyperlipidemia, gout, CKD stage IV, seizures, dysphagia S/P peg placement, atrial fibrillation on anticoagulation, anemia of chronic disease, and type 2 diabetes presents here with anemia and bradycardia, melena, shortness of breath x2 days. The patient presents here from [facility] via EMS on 05/02 for further evaluation of low hemoglobin and bradycardia. Patient currently at [facility] after a recent admission at [facility] from 04/12/25 to 04/24/25. Seen at that time for altered mental status/new onset seizure disorder. Seizure suspected to be related to alcohol use or withdrawal, started on Keppra 750 mg twice daily. Patient additionally sustained a type 2 odontoid fracture for which he saw neuro surgery and was placed in an [place] collar, follow-up with their service in 6 weeks and discharged to [facility] for PT/OT. Patient also failed MBS on 04/17 for which a PEG tube was placed on 04/20 and he was started on tube feeds, strict NPO, and to continue speech therapy at [facility]. Patient also developed new AFib during this admission for which he was restarted on labetalol for concurrent hypertension and he was started on anticoagulation with Eliquis. Additionally treated for CAP for which he did not require supplemental oxygen. Has since been at [facility] and has had a remarkable recovery up until 05/02/2025 when his Hgb was found to be 5.2, verified via repeat (4.8). Patient also noted to be bradycardic at 54. Per the patient's , he has been experiencing dark tarry stools for the past 4 days. Initial VS at presentation: 97.9? F, HR 54, R 19, 111/54, and 100% on RA. ED workup showed: WBC 10.5, hemoglobin 4.6 (previously 7.5 on 04/25), INR 1.6, sodium 131, creatinine 3.57 and GFR 17 (previously 2.87 and GFR 21 on 04/25), glucose 142, albumin 2.9. Shortness of breath -reported of shortness of breath transiently on 05/03/2025. Chest CT demonstrated diffuse lung disease likely a combination of moderate pulmonary edema and pneumonia, moderate-size pleural effusions, ascites -patient did received 3 units PRBC. Quad viral screen negative. Respiratory pathogen panel pending. Mycoplasma IgM negative. -required O2 transiently. Has been breathing well since on room air. Continue MANAGER [employer]PLICATION Lasix 40 mg via feeding tube daily. Melena, acute anemia on chronic anemia -GI consulted. Status post 3 units PRBC. 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 Lesion was cauterized with APC. GI recommended restarting tube feeding, holding Eliquis for 7 days status post EGD. Discontinue Protonix. Hemoglobin has been stable. Dysphagia status post PEG placement -speech therapy consulted, modified barium swallow completed on 05/04/2025 after EGD, demonstrates pharyngeal dysphagia with laryngeal penetration without aspiration. Feeding tubes restarted, 1 on 1 oral feeding per speech therapy with continued evaluations and treatment. NANDINI and CKD -recent baseline around 3.0. Presents to serum creatinine 3.49, no improvement after 3 unit PRBC and 1 L of lactated Ringer's -nephrology consultation. Elevated BUN possibly due to GI bleed. Appreciate recommendations. Hamilton catheter removed. -continue intake/output monitoring and daily weights. Hypokalemia: 05/05/2025, replace and monitor Hypertension -at goal. Initially holding amlodipine and hydralazine due to GI bleed. -05/05/2025: Blood pressure is elevated, restart daily amlodipine. History of alcohol use disorder, seizure disorder -continue [employer]NAGER [employer]PLICATION Keppra 750 mg p.o. b.i.d. Atrial fibrillation on anticoagulation, bradycardia -currently in sinus bradycardia. Hold MANAGER [employer]PLICATION labetalol -continue telemetry Pub-lljsbau-rrxhuixuf diabetes mellitus -Accu-Cheks q.6 hours with low-dose insulin sliding scale and hypoglycemia protocol Type 2 fracture of odontoid process -continue [place] collar -continue PT/OT Leukocytosis -mild, continue to up trend. Afebrile. Patient appears nontoxic, no evidence of active infection will get blood culture x2 UA was 05/07/25. Chest x-ray with CHF and superimposed probable pneumonia. Multiple bowel movement charted. Hypothermia -on admission, received heating blanket/Alma Hugger, could have been due to anemia. Resolved. Left knee pain will get x-ray Speech therapy, thickened liquids, pureed diet with 1 on 1 feeding. Tube feeds resume. Continue dietitian and speech therapy Hold MANAGER [employer]PLICATION Eliquis, SCDs Received 3 units PRBC in 1 L lactated Ringer's on admission. Saline lock IV Peripheral IV, PEG tube, Hamilton catheter removed DNR Stable on medical floor. Subjective Date/time seen: 05/08/25 14:36 Interval history: Complains of left knee pain. Family at bedside. No other issues. Review of Systems Review of Systems: All systems reviewed & are unremarkable except as noted in HPI and below (Subjective) Exam Narrative: GENERAL: The patient is thin built, not in acute distress cervical collar in place HEENT: Nonicteric sclerae, PERRLA, EOMI. Oropharynx clear. Moist mucous membranes. Conjunctivae appear well perfused. CHEST: Chest wall is nontender. HEART: Regular rate and rhythm without murmur, rubs, or gallops LUNGS: Clear to auscultation bilaterally. no respiratory distress ABDOMEN: Soft, positive bowel sounds, non-tender, no organomegaly. G-tube in-situ SKIN: No rash, no excessive bruising, petechiae, or purpura. NEUROLOGIC: Cranial nerves II-XII intact, alert and oriented x 3, no gross motor deficits EXTREMITIES: no edema, cyanosis or clubbing Objective Data Vital Signs Vital Signs: Vital Signs - 24 hr 05/07/25 20:00 05/07/25 20:40 05/08/25 05:30 Temperature 96.6 F L 97 F L Pulse Rate 78 65 84 Respiratory Rate 16 20 20 Blood Pressure 133/48 L 152/55 H Pulse Oximetry 97 98 98 Oxygen Delivery Room Air Fraction of Inspired Oxygen 21 05/08/25 08:00 Temperature Pulse Rate Respiratory Rate Blood Pressure Pulse Oximetry Oxygen Delivery Room Air Fraction of Inspired Oxygen Intake/Output Intake/Output: Intake & Output 05/05/25 05/06/25 05/07/25 05/08/25 23:59 23:59 23:59 23:59 Intake Total 960 1432 794 0 Output Total 2200 1400 1550 400 Balance -1240 48 -953 -432 Meds/Results Medications: Active Medications Generic Name Dose Route Start Last Admin Trade Name Freq PRN Reason Stop Dose Admin Acetaminophen 650 mg 05/02/25 20:49 05/07/25 16:31 Acetaminophen Elixir 325 Mg/10.15 Ml Udc FEED TUBE 650 mg Q4H PRN Administration Mild Pain (1-3) or Fever Amlodipine Besylate 5 mg 05/05/25 17:25 05/08/25 09:46 Amlodipine Besylate 5 Mg Tablet FEED TUBE 5 mg DAILY OLENA Administration Dextrose 12.5 gm 05/02/25 20:20 Dextrose 50% 25 Gm/50 Ml Syringe IV PUSH PRN PRN Hypoglycemia Protocol Febuxostat 40 mg 05/06/25 09:00 05/08/25 09:46 Febuxostat 40 Mg Tablet FEED TUBE 40 mg DAILY OLENA Administration Furosemide 40 mg 05/03/25 09:00 05/08/25 09:47 Furosemide 40 Mg Tablet FEED TUBE 40 mg DAILY OLENA Administration Glucagon 1 mg 05/02/25 20:20 Glucagon For Inj 1 Mg Vial IM PRN PRN Hypoglycemia Protocol Glucose 15 gm 05/02/25 20:20 Glucose Oral Gel 15 Gm Of Glucse In 37.5 Gm Tube PO PRN PRN Hypoglycemia Protocol Dextrose 1,000 mls @ 100 mls/hr 05/02/25 20:20 Dextrose 5% 1,000 Ml IVPB PRN PRN Hypoglycemia Protocol Insulin Aspart 2 - 5 units 05/03/25 00:00 05/08/25 11:41 Insulin Aspart (*Bkc) 100 Units/Ml SUB-Q Not Given Q6HR OLENA Protocol Levetiracetam 750 mg 05/02/25 21:00 05/08/25 09:47 Levetiracetam Oral Pallavi 500 Mg/5 Ml Udc FEED TUBE 750 mg Q12HR OLENA Administration Lidocaine 1 patch 05/08/25 09:00 05/08/25 13:08 Lidocaine 5% Patch TRANSDERM 1 patch DAILY OLENA Administration Simvastatin 40 mg 05/03/25 09:00 05/08/25 09:47 Simvastatin 20 Mg Tablet FEED TUBE 40 mg DAILY OLENA Administration Radiology Results: ITS Impressions Chest CT 05/03/25 09:17 IMPRESSION: 1. Diffuse lung disease, likely a combination of moderate pulmonary edema and pneumonia. 2. Moderate-sized pleural effusions. 3. Ascites. Renal Ultrasound 05/03/25 11:21 IMPRESSION: 1. No hydronephrosis. Modified Barium Swallow 05/04/25 13:53 IMPRESSION: Pharyngeal dysphagia with laryngeal penetration without aspiration. Please correlate with speech pathologist findings and specific feeding recommendations. Chest X-Ray 05/07/25 11:04 Impression: CHF. Superimposed probable pneumonia Knee X-Ray 05/08/25 14:06 IMPRESSION: 1. Tricompartmental degenerative changes; calcification in the menisci could be associated with pseudogout or CPPD. 2. Extensive vascular calcification may be associated with peripheral artery disease. Labs Labs: Laboratory Results - last 24 hr 05/07/25 05/07/25 05/08/25 16:34 18:50 00:40 WBC RBC Hgb Hct MCV MCH MCHC RDW Plt Count MPV Immature Gran % (Auto) Neut % (Auto) Lymph % (Auto) [place] % (Auto) Eos % (Auto) Baso % (Auto) Lymph # (Auto) [place] # (Auto) Eos # (Auto) Baso # (Auto) Abs Immat Gran (auto) Absolute Neuts (auto) Absolute Nucleated RBC Nucleated RBC % Sodium Potassium Chloride Carbon Dioxide Anion Gap BUN Creatinine Estim Creat Clear Calc Estimated GFR Glucose POC Capillary Glucose 215 H 180 H Calcium Phosphorus Albumin Urine Color Yellow Urine Appearance Clear Urine pH 6.5 Ur Specific [place] 1.014 Urine Protein 3+ H Urine Glucose (UA) 1+ H Urine Ketones Negative Ur Blood (Man) Negative Urine Nitrate Negative Urine Bilirubin Negative Urine Urobilinogen 0.2 Ur Leukocyte Esterase Negative Urine RBC 0-2 Urine WBC 0-5 Ur Squamous Epith Cells None seen Urine Bacteria None seen Urine Casts 0-2 05/08/25 05/08/25 05/08/25 05:20 05:42 11:19 WBC 21.8 H RBC 2.68 L Hgb 8.3 L Hct 25.8 L MCV 96.3 MCH 31.0 MCHC 32.2 RDW 14.7 H Plt Count 348 MPV 10.0 Immature Gran % (Auto) 1.0 H Neut % (Auto) 83.9 H Lymph % (Auto) 4.5 L [place] % (Auto) 10.1 H Eos % (Auto) 0.3 Baso % (Auto) 0.2 Lymph # (Auto) 0.97 [place] # (Auto) 2.2 H Eos # (Auto) 0.1 Baso # (Auto) 0.1 Abs Immat Gran (auto) 0.22 H Absolute Neuts (auto) 18.3 H Absolute Nucleated RBC 0.000 Nucleated RBC % 0.0 Sodium 136 L Potassium 3.4 Chloride 102 Carbon Dioxide 23 Anion Gap 11 BUN 117 H* Creatinine 2.99 H Estim Creat Clear Calc 13 Estimated GFR 20 L Glucose 172 H POC Capillary Glucose 177 H 184 H Calcium 9.7 Phosphorus 4.0 Albumin 3.2 L Urine Color Urine Appearance Urine pH Ur Specific [place] Urine Protein Urine Glucose (UA) Urine Ketones Ur Blood (Man) Urine Nitrate Urine Bilirubin Urine Urobilinogen Ur Leukocyte Esterase Urine RBC Urine WBC Ur Squamous Epith Cells Urine Bacteria Urine Casts
[2025-05-08] MEDS: INSULIN ASPART (*BKC) 100 UNITS/ML SUB-Q (19:34)
[2025-05-08 20:00] VITALS: PULSE 80; RESP 18; O2SAT 97
[2025-05-08] MEDS: ACETAMINOPHEN ELIXIR 325 MG/10.15 ML UDC 650 MG FEED TUBE (21:37)
[2025-05-08 22:00] VITALS: BP 155/56; PULSE 80; RESP 18; TEMP 37.1; O2SAT 97
[2025-05-09 06:00] VITALS: BP 137/57; PULSE 69; RESP 14; TEMP 36.8; O2SAT 99
[2025-05-09 06:14] LABS: Hematocrit 24.4 % (42.0-52.0); Hemoglobin 7.9 g/dL (14.0-18.0); Immature Granulocyte Percent A 0.9 % (0-0.5); Lymphocytes Absolute Auto 0.84 K/mm3 (0.9-3.2); Mean Corpuscular HGB Conc 32.4 g/dl (32-36); Mean Corpuscular Hemoglobin 31.6 pg (26-34); Mean Corpuscular Volume 97.6 fl (80-100); Nucleated Red Blood Cells Absolute Auto 0.000 K/mm3 (0.0-0.012); Nucleated Red Blood Cells Perc 0.0 % (0.0-0.2); Platelet Count Result 312 k/mm3 (150-375); Red Blood Count 2.50 M/mm3 (4.6-6.20); White Blood Count 17.2 K/mm3 (4.5-10.0)
[2025-05-09 06:43] LABS: Alanine Aminotransferase 137 U/L (6-50); Albumin Level 3.1 g/dL (3.5-5.1); Alkaline Phosphatase 221 U/L (38-126); Anion Gap 12 mmol/L (4-12); Aspartate Amino Transferase 282 U/L (17-59); Bilirubin,Total 0.9 mg/dL (0.2-1.3); Calcium 9.8 mg/dL (8.4-10.2); Carbon Dioxide 24 mmol/L (22-30); Chloride 102 mmol/L (98-107); Estimated CRCL calculation 13 ml/min; Estimated Glomerular Filt Rate 18; Glucose 178 mg/dL (65-110); Magnesium 2.3 mg/dL (1.6-2.3); Potassium 3.2 mmol/L (3.4-5.0); Sodium 138 mmol/L (137-145); Total Protein 6.7 g/dL (6.3-8.2)
[2025-05-09 06:58] LABS: Blood Urea Nitrogen 120 mg/dL (9-20)
[2025-05-09 06:59] LABS: Toxigenic C. Diff NEGATIVE (NEGATIVE)
[2025-05-09] MEDS: LIDOCAINE 5% PATCH 1 PATCH TRANSDERM (09:05)
[2025-05-09] MEDS: SIMVASTATIN 20 MG TABLET 40 MG FEED TUBE (09:05)
[2025-05-09] MEDS: FEBUXOSTAT 40 MG TABLET FEED TUBE (09:05)
[2025-05-09] MEDS: FUROSEMIDE 40 MG TABLET FEED TUBE (09:05)
[2025-05-09] MEDS: levETIRAcetam ORAL SOL 500 MG/5 ML UDC 750 MG FEED TUBE ×2 (09:05→20:21)
[2025-05-09] MEDS: POTASSIUM CHLORIDE 20 MEQ PACKET (FOR LIQUID) FEED TUBE (09:07)
--- NOTE | 2025-05-09 11:26 | PM.IMPN ---
Progress Note: A&P Assessment and Plan (1) Atrial fibrillation: Qualifiers: Atrial fibrillation type: unspecified chronic Qualified Code(s): I48.20 - Chronic atrial fibrillation, unspecified Code(s): I48.91 - Unspecified atrial fibrillation Status: Chronic (2) Alcohol abuse: Code(s): F10.10 - Alcohol abuse, uncomplicated Status: Acute (3) Acute kidney injury superimposed on CKD: Code(s): N17.9 - Acute kidney failure, unspecified; N18.9 - Chronic kidney disease, unspecified Status: Acute (4) Anemia: Code(s): D64.9 - Anemia, unspecified Status: Acute (5) Shortness of breath: Code(s): R06.02 - Shortness of breath Status: Acute Plan patient with dark tarry seen by GI suspect most likely due to AVM, and his hh now stable, will continue to monitor. Recommending feeding via PEG, patient has not had any seizures while in the hospital Patient white counts trending up, has difficulty with swallowing, x-ray today concerning for pnuemonia, patient is treated with Augmentin, currently NPO, will switch with Zosyn, will monitor, and plan. his is present gave updates. 84 y/o M with PMH of alcohol use disorder, hypertension, prostate cancer, hyperlipidemia, gout, CKD stage IV, seizures, dysphagia S/P peg placement, atrial fibrillation on anticoagulation, anemia of chronic disease, and type 2 diabetes presents here with anemia and bradycardia, melena, shortness of breath x2 days. The patient presents here from [facility] via EMS on 05/02 for further evaluation of low hemoglobin and bradycardia. Patient currently at [facility] after a recent admission at [facility] from 04/12/25 to 04/24/25. Seen at that time for altered mental status/new onset seizure disorder. Seizure suspected to be related to alcohol use or withdrawal, started on Keppra 750 mg twice daily. Patient additionally sustained a type 2 odontoid fracture for which he saw neuro surgery and was placed in an Bancroft collar, follow-up with their service in 6 weeks and discharged to [facility] for PT/OT. Patient also failed MBS on 04/17 for which a PEG tube was placed on 04/20 and he was started on tube feeds, strict NPO, and to continue speech therapy at [facility]. Patient also developed new AFib during this admission for which he was restarted on labetalol for concurrent hypertension and he was started on anticoagulation with Eliquis. Additionally treated for CAP for which he did not require supplemental oxygen. Has since been at [facility] and has had a remarkable recovery up until 05/02/2025 when his Hgb was found to be 5.2, verified via repeat (4.8). Patient also noted to be bradycardic at 54. Per the patient's , he has been experiencing dark tarry stools for the past 4 days. Initial VS at presentation: 97.9? F, HR 54, R 19, 111/54, and 100% on RA. ED workup showed: WBC 10.5, hemoglobin 4.6 (previously 7.5 on 04/25), INR 1.6, sodium 131, creatinine 3.57 and GFR 17 (previously 2.87 and GFR 21 on 04/25), glucose 142, albumin 2.9. Shortness of breath -reported of shortness of breath transiently on 05/03/2025. Chest CT demonstrated diffuse lung disease likely a combination of moderate pulmonary edema and pneumonia, moderate-size pleural effusions, ascites -patient did received 3 units PRBC. Quad viral screen negative. Respiratory pathogen panel pending. Mycoplasma IgM negative. -required O2 transiently. Has been breathing well since on room air. 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 Melena, acute anemia on chronic anemia -GI consulted. Status post 3 units PRBC. 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 Lesion was cauterized with APC. GI recommended restarting tube feeding, holding Eliquis for 7 days status post EGD. Discontinue Protonix. Hemoglobin has been stable. Dysphagia status post PEG placement -speech therapy consulted, modified barium swallow completed on 05/04/2025 after EGD, demonstrates pharyngeal dysphagia with laryngeal penetration without aspiration. Feeding tubes restarted, 1 on 1 oral feeding per speech therapy with continued evaluations and treatment. NANDINI and CKD -recent baseline around 3.0. Presents to serum creatinine 3.49, no improvement after 3 unit PRBC and 1 L of lactated Ringer's -nephrology consultation. Elevated BUN possibly due to GI bleed. Appreciate recommendations. Hamilton catheter removed. -continue intake/output monitoring and daily weights. Hypokalemia: 05/05/2025, replace and monitor Hypertension -at goal. Initially holding amlodipine and hydralazine due to GI bleed. -05/05/2025: Blood pressure is elevated, restart daily amlodipine. History of alcohol use disorder, seizure disorder -continue ELECTRIC SYSTEM OPERATOR Keppra 750 mg p.o. b.i.d. Atrial fibrillation on anticoagulation, bradycardia -currently in sinus bradycardia. Hold ELECTRIC SYSTEM OPERATOR labetalol -continue telemetry Bip-gciqhne-ywckdnucw diabetes mellitus -Accu-Cheks q.6 hours with low-dose insulin sliding scale and hypoglycemia protocol Type 2 fracture of odontoid process -continue Bancroft collar -continue PT/OT Leukocytosis -mild, continue to up trend. Afebrile. Patient appears nontoxic, no evidence of active infection will get blood culture x2 Which is pending.UA was 05/07/25. Chest x-ray with CHF and superimposed probable pneumonia. Multiple bowel movement charted. C diff came back negative. Leukocytosis improved down today Hypothermia -on admission, received heating blanket/Alma Hugger, could have been due to anemia. Resolved. Left knee pain x-ray with no fracture however does have tricompartmental degenerative changes, calcification of the menisci which could be associated with pseudo gout or CPPD. Extensive vascular calcification associated with peripheral artery disease. Will continue therapy lidocaine patch added. If not able to bear weight may need to do CT/MRI to further evaluate Speech therapy, thickened liquids, pureed diet with 1 on 1 feeding. Tube feeds resume. Continue dietitian and speech therapy Hold ELECTRIC SYSTEM OPERATOR Eliquis, SCDs Received 3 units PRBC in 1 L lactated Ringer's on admission. Saline lock IV Peripheral IV, PEG tube, Hamilton catheter removed DNR Stable on medical floor. Subjective Date/time seen: 05/09/25 11:26 Interval history: no overnight events, patient has lidocaine patch. Pain is still present. No other complaints. Review of Systems Review of Systems: All systems reviewed & are unremarkable except as noted in HPI and below (Subjective) Exam Narrative: GENERAL: The patient is thin built, not in acute distress cervical collar in place HEENT: Nonicteric sclerae, PERRLA, EOMI. Oropharynx clear. Moist mucous membranes. Conjunctivae appear well perfused. CHEST: Chest wall is nontender. HEART: Regular rate and rhythm without murmur, rubs, or gallops LUNGS: Clear to auscultation bilaterally. no respiratory distress ABDOMEN: Soft, positive bowel sounds, non-tender, no organomegaly. G-tube in-situ SKIN: No rash, no excessive bruising, petechiae, or purpura. NEUROLOGIC: Cranial nerves II-XII intact, alert and oriented x 3, no gross motor deficits EXTREMITIES: no edema, cyanosis or clubbing Objective Data Vital Signs Vital Signs: Vital Signs - 24 hr 05/08/25 14:00 05/08/25 20:00 05/08/25 22:00 Temperature 97.8 F 98.8 F Pulse Rate 80 80 80 Respiratory Rate 16 18 18 Blood Pressure 160/63 H 155/56 H Pulse Oximetry 98 97 97 Oxygen Delivery Room Air Fraction of Inspired Oxygen 21 05/09/25 06:00 05/09/25 09:00 Temperature 98.2 F Pulse Rate 69 Respiratory Rate 14 Blood Pressure 137/57 L Pulse Oximetry 99 Oxygen Delivery Room Air Fraction of Inspired Oxygen Intake/Output Intake/Output: Intake & Output 05/06/25 05/07/25 05/08/25 05/09/25 23:59 23:59 23:59 23:59 Intake Total 1432 794 0 0 Output Total 1400 1550 900 Balance 32 -756 -900 0 Meds/Results Medications: Active Medications Generic Name Dose Route Start Last Admin Trade Name Freq PRN Reason Stop Dose Admin Acetaminophen 650 mg 05/02/25 20:49 05/08/25 21:37 Acetaminophen Elixir 325 Mg/10.15 Ml Udc FEED TUBE 650 mg Q4H PRN Administration Mild Pain (1-3) or Fever Amlodipine Besylate 5 mg 05/05/25 17:25 05/09/25 09:05 Amlodipine Besylate 5 Mg Tablet FEED TUBE 5 mg DAILY OLENA Administration Dextrose 12.5 gm 05/02/25 20:20 Dextrose 50% 25 Gm/50 Ml Syringe IV PUSH PRN PRN Hypoglycemia Protocol Febuxostat 40 mg 05/06/25 09:00 05/09/25 09:05 Febuxostat 40 Mg Tablet FEED TUBE 40 mg DAILY OLENA Administration Furosemide 20 mg 05/11/25 09:00 Furosemide 20 Mg Tablet FEED TUBE DAILY OLENA Glucagon 1 mg 05/02/25 20:20 Glucagon For Inj 1 Mg Vial IM PRN PRN Hypoglycemia Protocol Glucose 15 gm 05/02/25 20:20 Glucose Oral Gel 15 Gm Of Glucse In 37.5 Gm Tube PO PRN PRN Hypoglycemia Protocol Dextrose 1,000 mls @ 100 mls/hr 05/02/25 20:20 Dextrose 5% 1,000 Ml IVPB PRN PRN Hypoglycemia Protocol Insulin Aspart 2 - 5 units 05/03/25 00:00 05/09/25 06:38 Insulin Aspart (*Bkc) 100 Units/Ml SUB-Q Not Given Q6HR OLENA Protocol Levetiracetam 750 mg 05/02/25 21:00 05/09/25 09:05 Levetiracetam Oral Pallavi 500 Mg/5 Ml Udc FEED TUBE 750 mg Q12HR OLENA Administration Lidocaine 1 patch 05/08/25 09:00 05/09/25 09:05 Lidocaine 5% Patch TRANSDERM 1 patch DAILY OLENA Administration Simvastatin 40 mg 05/03/25 09:00 05/09/25 09:05 Simvastatin 20 Mg Tablet FEED TUBE 40 mg DAILY OLENA Administration Radiology Results: ITS Impressions Chest CT 05/03/25 09:17 IMPRESSION: 1. Diffuse lung disease, likely a combination of moderate pulmonary edema and pneumonia. 2. Moderate-sized pleural effusions. 3. Ascites. Renal Ultrasound 05/03/25 11:21 IMPRESSION: 1. No hydronephrosis. Modified Barium Swallow 05/04/25 13:53 IMPRESSION: Pharyngeal dysphagia with laryngeal penetration without aspiration. Please correlate with speech pathologist findings and specific feeding recommendations. Chest X-Ray 05/07/25 11:04 Impression: CHF. Superimposed probable pneumonia Knee X-Ray 05/08/25 14:06 IMPRESSION: 1. Tricompartmental degenerative changes; calcification in the menisci could be associated with pseudogout or CPPD. 2. Extensive vascular calcification may be associated with peripheral artery disease. Labs Labs: Laboratory Results - last 24 hr 05/08/25 05/08/25 05/09/25 17:16 20:31 00:13 WBC RBC Hgb Hct MCV MCH MCHC RDW Plt Count MPV Immature Gran % (Auto) Neut % (Auto) Lymph % (Auto) Parke % (Auto) Eos % (Auto) Baso % (Auto) Lymph # (Auto) Parke # (Auto) Eos # (Auto) Baso # (Auto) Abs Immat Gran (auto) Absolute Neuts (auto) Absolute Nucleated RBC Nucleated RBC % Sodium Potassium Chloride Carbon Dioxide Anion Gap BUN Creatinine Estim Creat Clear Calc Estimated GFR Glucose POC Capillary Glucose 202 H 170 H 185 H Calcium Phosphorus Magnesium Total Bilirubin AST ALT Alkaline Phosphatase Total Protein Albumin C. difficile (PCR) 05/09/25 05/09/25 05/09/25 04:56 05:59 06:00 WBC 17.2 H RBC 2.50 L Hgb 7.9 L Hct 24.4 L MCV 97.6 MCH 31.6 MCHC 32.4 RDW 14.5 Plt Count 312 MPV 9.7 Immature Gran % (Auto) 0.9 H Neut % (Auto) 82.1 H Lymph % (Auto) 4.9 L Parke % (Auto) 10.9 H Eos % (Auto) 0.9 Baso % (Auto) 0.3 Lymph # (Auto) 0.84 L Parke # (Auto) 1.9 H Eos # (Auto) 0.2 Baso # (Auto) 0.1 Abs Immat Gran (auto) 0.15 H Absolute Neuts (auto) 14.2 H Absolute Nucleated RBC 0.000 Nucleated RBC % 0.0 Sodium 138 Potassium 3.2 L Chloride 102 Carbon Dioxide 24 Anion Gap 12 BUN 120 H* Creatinine 3.22 H Estim Creat Clear Calc 13 Estimated GFR 18 L Glucose 178 H POC Capillary Glucose 195 H Calcium 9.8 Phosphorus 4.7 H Magnesium 2.3 Total Bilirubin 0.9 AST 282 H ALT 137 H Alkaline Phosphatase 221 H Total Protein 6.7 Albumin 3.1 L C. difficile (PCR) Negative
[2025-05-09] MEDS: INSULIN ASPART (*BKC) 100 UNITS/ML SUB-Q (11:49)
--- NOTE | 2025-05-09 12:40 | P.PNNP_ITS ---
Progress Note: A&P Assessment and Plan (1) Acute kidney injury: Code(s): N17.9 - Acute kidney failure, unspecified Status: Acute Assessment and Plan: * slow improvement in creatinine.... * a bit worse from baseline (but has been this high before) * suspect due a few issues: * prerenal factors * severe anemia * pneumonia * other * evaluation to date noted: * renal u/s without obstruction * urine electrolytes are prerenal * UA without evidence of infection * proteinuria noted * CPK low * still making good urine output * almost 4L negative at this time * possible overdiuresis * follow-up on CXR * reduce lasix dosage * azotemia/elevated BUN noted -- likely due to #3; something else contributing(?) * follow trend of repeat labs and UOP (2) Stage 4 chronic kidney disease: Code(s): N18.4 - Chronic kidney disease, stage 4 (severe) Status: Chronic Assessment and Plan: * fluctuates to extremes at baseline... 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 with small amount of hematin in the lumen * s/p cauterization with APC * GI recommendations noted * holding Eliquis for 7 days following EGD * d/c'd PPI * suspected etiology of elevated BUN/azotemia * follow trend of H/H (4) Shortness of breath: Code(s): R06.02 - Shortness of breath Status: Acute Assessment and Plan: * clinically seems better if not resolved * CT imaging noted: * moderate pulmonary edema * pneumonia * pleural effusions * ascites * viral testing for influenza/RSV/COVID negative * remains on oral diuretic therapy * off oxygen at this time * follow respiratory status (5) Anemia: Code(s): D64.9 - Anemia, unspecified Status: Acute Assessment and Plan: * partly related to NANDINI, CKD, and complicated by #3 * follow trend of H/H * consider THEO depending on trend of H/H (6) Pneumonia: Code(s): J18.9 - Pneumonia, unspecified organism Status: Acute Assessment and Plan: * as noted by admission imaging * follow culture data (negative to date) * completed course of antibiotics (7) Atrial fibrillation: Qualifiers: Atrial fibrillation type: unspecified chronic Qualified Code(s): I48.20 - Chronic atrial fibrillation, unspecified Code(s): I48.91 - Unspecified atrial fibrillation Status: Chronic Assessment and Plan: * rate control strategy * Eliquis on hold (see #3) (8) Hyponatremia: Code(s): E87.1 - Hypo-osmolality and hyponatremia Status: Acute Assessment and Plan: * improving if not resolved * likely related to NANDINI on CKD * follow trend (9) Dysphagia: Qualifiers: Dysphagia type: unspecified Qualified Code(s): R13.10 - Dysphagia, unspecified Code(s): R13.10 - Dysphagia, unspecified Status: Chronic Assessment and Plan: * s/p PEG tube placement * speech therapy recommendations and MBS noted * on tube feedings (10) Hypertension: Code(s): I10 - Essential (primary) hypertension Status: Chronic Assessment and Plan: * reasonable control * follow trend of hemodynamics (11) Diabetes mellitus: Qualifiers: Diabetes mellitus type: type 2 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 use: without alf use Diabetes mellitus complication status: with kidney complications Diabetes mellitus complication detail: with chronic kidney disease Chronic kidney disease stage: stage 4 (severe) Qualified Code(s): E 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; N18.4 - Chronic kidney disease, stage 4 (severe) Code(s): E11.9 - Type 2 diabetes mellitus without complications Status: Chronic Assessment and Plan: * follow accu-cheks * glycemic control per hospitalist (12) Type II fracture of odontoid process: Qualifiers: Encounter type: subsequent encounter Fracture type: closed Fracture alignment: nondisplaced Fracture healing: with routine healing Qualified Code(s): S12.112D - Nondisplaced Type II dens fracture, subsequent encounter for fracture with routine healing Code(s): S12.110A - Anterior displaced Type II dens fracture, initial encounter for closed fracture Status: Chronic Assessment and Plan: * as noted on previous imaging * conservative therapy per Neurosurgery * Sod collar in place * ongoing PT/OT Will continue to follow. L Subjective Date/time seen: 05/09/25 12:40 Interval history: Follow-up for acute kidney injury/acute renal failure on chronic kidney disease. Renal function/creatinine appear relatively stable but BUN continues to fluctuate; still with left leg/knee pain; trend of WBC noted as well; no other acute issues voiced at the time of my visit; elevated WBC noted a s well. Exam 2 Narrative: General: elderly but WD/WN male in NAD; Sod collar in place Heart: normal S1 and S2; no rub Lungs: clear anteriorly Abdomen: soft, nontender, nondistended, positive bowel sounds Extremities: no cyanosis or clubbing; no edema Skin: warm and intact Objective Data Vital Signs Vital Signs: Vital Signs Temp Pulse Resp BP Pulse Ox O2 Del Method FiO2 05/09/25 12:00 97.5 F L 67 20 129/59 L 100 05/09/25 09:00 Room Air 05/09/25 06:00 98.2 F 69 14 137/57 L 99 05/08/25 22:00 98.8 F 80 18 155/56 H 97 05/08/25 20:00 80 18 97 Room Air 21 Intake/Output Intake/Output: Intake & Output 05/06/25 05/07/25 05/08/25 05/09/25 23:59 23:59 23:59 23:59 Intake Total 1432 794 0 0 Output Total 1400 1550 900 Balance 32 -756 -900 0 Meds/Results Medications: Active Medications Generic Name Dose Route Start Last Admin Trade Name Freq PRN Reason Stop Dose Admin Acetaminophen 650 mg 05/02/25 20:49 05/08/25 21:37 Acetaminophen Elixir 325 Mg/10.15 Ml Udc FEED TUBE 650 mg Q4H PRN Administration Mild Pain (1-3) or Fever Amlodipine Besylate 5 mg 05/05/25 17:25 05/09/25 09:05 Amlodipine Besylate 5 Mg Tablet FEED TUBE 5 mg DAILY OLENA Administration Dextrose 12.5 gm 05/02/25 20:20 Dextrose 50% 25 Gm/50 Ml Syringe IV PUSH PRN PRN Hypoglycemia Protocol Febuxostat 40 mg 05/06/25 09:00 05/09/25 09:05 Febuxostat 40 Mg Tablet FEED TUBE 40 mg DAILY OLENA Administration Furosemide 20 mg 05/11/25 09:00 Furosemide 20 Mg Tablet FEED TUBE DAILY OLENA Glucagon 1 mg 05/02/25 20:20 Glucagon For Inj 1 Mg Vial IM PRN PRN Hypoglycemia Protocol Glucose 15 gm 05/02/25 20:20 Glucose Oral Gel 15 Gm Of Glucse In 37.5 Gm Tube PO PRN PRN Hypoglycemia Protocol Dextrose 1,000 mls @ 100 mls/hr 05/02/25 20:20 Dextrose 5% 1,000 Ml IVPB PRN PRN Hypoglycemia Protocol Insulin Aspart 2 - 5 units 05/03/25 00:00 05/09/25 11:49 Insulin Aspart (*Bkc) 100 Units/Ml SUB-Q 2 units Q6HR OLENA Administration Protocol Levetiracetam 750 mg 05/02/25 21:00 05/09/25 09:05 Levetiracetam Oral Pallavi 500 Mg/5 Ml Udc FEED TUBE 750 mg Q12HR OLENA Administration Lidocaine 1 patch 05/08/25 09:00 05/09/25 09:05 Lidocaine 5% Patch TRANSDERM 1 patch DAILY OLENA Administration Simvastatin 40 mg 05/03/25 09:00 05/09/25 09:05 Simvastatin 20 Mg Tablet FEED TUBE 40 mg DAILY OLENA Administration Radiology Results: ITS Impressions Chest CT 05/03/25 09:17 IMPRESSION: 1. Diffuse lung disease, likely a combination of moderate pulmonary edema and pneumonia. 2. Moderate-sized pleural effusions. 3. Ascites. Renal Ultrasound 05/03/25 11:21 IMPRESSION: 1. No hydronephrosis. Modified Barium Swallow 05/04/25 13:53 IMPRESSION: Pharyngeal dysphagia with laryngeal penetration without aspiration. Please correlate with speech pathologist findings and specific feeding recommendations. Knee X-Ray 05/08/25 14:06 IMPRESSION: 1. Tricompartmental degenerative changes; calcification in the menisci could be associated with pseudogout or CPPD. 2. Extensive vascular calcification may be associated with peripheral artery disease. Labs Labs: Laboratory Tests 05/09/25 05:59 05/09/25 05:59 Calcium 9.8 Phosphorus 4.7 H Magnesium 2.3 Total Bilirubin 0.9 AST 282 H ALT 137 H Alkaline Phosphatase 221 H Total Protein 6.7 Albumin 3.1 L
[2025-05-09 14:00] VITALS: BP 129/59; PULSE 67; RESP 20; TEMP 36.4; O2SAT 100
[2025-05-09 20:00] VITALS: PULSE 82; RESP 16; O2SAT 97
[2025-05-09] MEDS: ACETAMINOPHEN ELIXIR 325 MG/10.15 ML UDC 650 MG FEED TUBE (20:21)
[2025-05-09 21:19] VITALS: BP 147/53; PULSE 82; RESP 16; TEMP 36.7; O2SAT 97
[2025-05-10 05:28] VITALS: BP 150/59; PULSE 71; RESP 16; TEMP 36.5; O2SAT 98
[2025-05-10 06:40] LABS: Hematocrit 23.7 % (42.0-52.0); Hemoglobin 7.5 g/dL (14.0-18.0); Immature Granulocyte Percent A 0.6 % (0-0.5); Lymphocytes Absolute Auto 0.87 K/mm3 (0.9-3.2); Mean Corpuscular HGB Conc 31.6 g/dl (32-36); Mean Corpuscular Hemoglobin 31.0 pg (26-34); Mean Corpuscular Volume 97.9 fl (80-100); Nucleated Red Blood Cells Absolute Auto 0.000 K/mm3 (0.0-0.012); Nucleated Red Blood Cells Perc 0.0 % (0.0-0.2); Platelet Count Result 303 k/mm3 (150-375); Red Blood Count 2.42 M/mm3 (4.6-6.20); White Blood Count 13.9 K/mm3 (4.5-10.0)
[2025-05-10 07:06] LABS: Alanine Aminotransferase 178 U/L (6-50); Albumin Level 3.1 g/dL (3.5-5.1); Alkaline Phosphatase 268 U/L (38-126); Anion Gap 12 mmol/L (4-12); Aspartate Amino Transferase 243 U/L (17-59); Bilirubin,Total 0.8 mg/dL (0.2-1.3); Calcium 9.8 mg/dL (8.4-10.2); Carbon Dioxide 24 mmol/L (22-30); Chloride 102 mmol/L (98-107); Estimated CRCL calculation 12 ml/min; Estimated Glomerular Filt Rate 18; Glucose 185 mg/dL (65-110); Magnesium 2.4 mg/dL (1.6-2.3); Potassium 3.0 mmol/L (3.4-5.0); Sodium 138 mmol/L (137-145); Total Protein 6.6 g/dL (6.3-8.2)
[2025-05-10 07:25] LABS: Blood Urea Nitrogen 129 mg/dL (9-20)
[2025-05-10] MEDS: SIMVASTATIN 20 MG TABLET 40 MG FEED TUBE (08:37)
[2025-05-10] MEDS: levETIRAcetam ORAL SOL 500 MG/5 ML UDC 750 MG FEED TUBE ×2 (08:37→21:23)
[2025-05-10] MEDS: FEBUXOSTAT 40 MG TABLET FEED TUBE (08:37)
[2025-05-10] MEDS: LIDOCAINE 5% PATCH 1 PATCH TRANSDERM (08:37)
[2025-05-10] MEDS: POTASSIUM CHLORIDE 20 MEQ PACKET (FOR LIQUID) 40 MEQ FEED TUBE (09:06)
[2025-05-10] MEDS: INSULIN ASPART (*BKC) 100 UNITS/ML SUB-Q (12:07)
--- NOTE | 2025-05-10 13:22 | P.PNNP_ITS ---
Progress Note: A&P Assessment and Plan (1) Acute kidney injury: Code(s): N17.9 - Acute kidney failure, unspecified Status: Acute Assessment and Plan: * fluctuating in the last 24 - 48 hours * suspect due a few issues: * prerenal factors * severe anemia * pneumonia * other * evaluation to date noted: * renal u/s without obstruction * urine electrolytes are prerenal * UA without evidence of infection * proteinuria noted * CPK low * still making good urine output * possible overdiuresis(?) * however recent CXR with evidence of congestion/fluid * azotemia/elevated BUN noted -- likely due to #3; something else contributing(?) * trial of holding diuretics today... * follow trend of repeat labs and UOP (2) Stage 4 chronic kidney disease: Code(s): N18.4 - Chronic kidney disease, stage 4 (severe) Status: Chronic Assessment and Plan: * fluctuates to extremes at baseline... * runs anywhere from 2.5 - 3.5mg/dL * in the last 3 - 4 months, creatinine has been running around 2.5 - 3.0mg/dl * due to hypertension, diabetes, vascular disease, and age related change along chronic diuretic therapy to maintain volume status (3) Azotemia: Code(s): R79.89 - Other specified abnormal findings of blood chemistry Status: Acute Assessment and Plan: * worsening in the last 24 - 48 hours * initially thought to be secondary to GI bleed * another potential etiology? 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 (6) Anemia: Code(s): D64.9 - Anemia, unspecified Status: Acute Assessment and Plan: * partly related to NANDINI, CKD, and complicated by #3 * follow trend of H/H * consider THEO depending on trend of H/H (7) Shortness of breath: Code(s): R06.02 - Shortness of breath Status: Acute Assessment and Plan: * clinically seems better if not resolved * CT imaging noted: * moderate pulmonary edema * pneumonia * pleural effusions * ascites * viral testing for influenza/RSV/COVID negative * remains on oral diuretic therapy * off oxygen at this time * follow respiratory status (8) Pneumonia: Code(s): J18.9 - Pneumonia, unspecified organism Status: Acute Assessment and Plan: * as noted by admission imaging * follow culture data (negative to date) * completed course of antibiotics (9) Atrial fibrillation: Qualifiers: Atrial fibrillation type: unspecified chronic Qualified Code(s): I48.20 - Chronic atrial fibrillation, unspecified Code(s): I48.91 - Unspecified atrial fibrillation Status: Chronic Assessment and Plan: * rate control strategy * Eliquis on hold (see #3) (10) Hyponatremia: Code(s): E87.1 - Hypo-osmolality and hyponatremia Status: Acute Assessment and Plan: * improving if not resolved * likely related to NANDINI on CKD * follow trend (11) Dysphagia: Qualifiers: Dysphagia type: unspecified Qualified Code(s): R13.10 - Dysphagia, unspecified Code(s): R13.10 - Dysphagia, unspecified Status: Chronic Assessment and Plan: * s/p PEG tube placement * speech therapy recommendations and MBS noted * on tube feedings (12) Hypertension: Code(s): I10 - Essential (primary) hypertension Status: Chronic Assessment and Plan: * reasonable control * follow trend of hemodynamics (13) Diabetes mellitus: Qualifiers: Chronic kidney disease stage: stage 4 (severe) Diabetes mellitus complication detail: with chronic kidney disease Diabetes mellitus complication status: with kidney complications Diabetes mellitus fdc insulin use: w ithout fdc use Diabetes mellitus type: type 2 Qualified Code(s): E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; N18.4 - Chronic kidney disease, stage 4 (severe) Code(s): E11.9 - Type 2 diabetes mellitus without complications Status: Chronic Assessment and Plan: * follow accu-cheks * glycemic control per hospitalist (14) Type II fracture of odontoid process: Qualifiers: Encounter type: subsequent encounter Fracture alignment: nondisplaced Fracture healing: with routine healing Fracture type: closed Qualified Code(s): S12.112D - Nondisplaced Type II dens fracture, subsequent encounter for fracture with routine healing Code(s): S12.110A - Anterior displaced Type II dens fracture, initial encounter for closed fracture Status: Chronic Assessment and Plan: * as noted on previous imaging * conservative therapy per Neurosurgery * [place] collar in place * ongoing PT/OT as tolerated Will continue to follow. L Subjective Date/time seen: 05/10/25 13:22 Interval history: Follow-up for acute kidney injury/acute renal failure on chronic kidney disease. Renal function/creatinine as well as BUN slightly higher by AM labs (although creatinine is within his baseline range); left knee pain seems to be doing a bit better but still not able to ambulate due to this issue/problem; no other acute issues voiced at the time of my visit. Exam 2 Narrative: General: elderly but WD/WN male in NAD; [place] collar in place Heart: normal S1 and S2; no rub Lungs: clear anteriorly Abdomen: soft, nontender, nondistended, positive bowel sounds Extremities: no cyanosis or clubbing; no edema Skin: no rash Objective Data Vital Signs Vital Signs: Vital Signs Temp Pulse Resp BP Pulse Ox O2 Del Method FiO2 05/10/25 09:00 Room Air 05/10/25 05:28 97.7 F 71 16 150/59 H 98 05/09/25 21:19 98.1 F 82 16 147/53 H 97 05/09/25 20:00 82 16 97 Room Air 21 Intake/Output Intake/Output: Intake & Output 05/07/25 05/08/25 05/09/25 05/10/25 23:59 23:59 23:59 23:59 Intake Total 794 0 780 Output Total 1550 900 650 200 Balance -756 -900 130 -200 Meds/Results Medications: Active Medications Generic Name Dose Route Start Last Admin Trade Name Freq PRN Reason Stop Dose Admin Acetaminophen 650 mg 05/02/25 20:49 05/09/25 20:21 Acetaminophen Elixir 325 Mg/10.15 Ml Udc FEED TUBE 650 mg Q4H PRN Administration Mild Pain (1-3) or Fever Amlodipine Besylate 5 mg 05/05/25 17:25 05/10/25 08:37 Amlodipine Besylate 5 Mg Tablet FEED TUBE 5 mg DAILY OLENA Administration Dextrose 12.5 gm 05/02/25 20:20 Dextrose 50% 25 Gm/50 Ml Syringe IV PUSH PRN PRN Hypoglycemia Protocol Febuxostat 40 mg 05/06/25 09:00 05/10/25 08:37 Febuxostat 40 Mg Tablet FEED TUBE 40 mg DAILY OLENA Administration Furosemide 20 mg 05/11/25 09:00 Furosemide 20 Mg Tablet FEED TUBE DAILY OLENA Glucagon 1 mg 05/02/25 20:20 Glucagon For Inj 1 Mg Vial IM PRN PRN Hypoglycemia Protocol Glucose 15 gm 05/02/25 20:20 Glucose Oral Gel 15 Gm Of Glucse In 37.5 Gm Tube PO PRN PRN Hypoglycemia Protocol Dextrose 1,000 mls @ 100 mls/hr 05/02/25 20:20 Dextrose 5% 1,000 Ml IVPB PRN PRN Hypoglycemia Protocol Insulin Aspart 2 - 5 units 05/03/25 00:00 05/10/25 12:07 Insulin Aspart (*Bkc) 100 Units/Ml SUB-Q 2 units Q6HR OLENA Administration Protocol Levetiracetam 750 mg 05/02/25 21:00 05/10/25 08:37 Levetiracetam Oral Pallavi 500 Mg/5 Ml Udc FEED TUBE 750 mg Q12HR OLENA Administration Lidocaine 1 patch 05/08/25 09:00 05/10/25 08:37 Lidocaine 5% Patch TRANSDERM 1 patch DAILY OLENA Administration Pantoprazole Sodium 40 mg 05/10/25 21:00 Pantoprazole Sodium Iv 40 Mg Vial IV PUSH Q12HR OLENA Simvastatin 40 mg 05/03/25 09:00 05/10/25 08:37 Simvastatin 20 Mg Tablet FEED TUBE 40 mg DAILY OLENA Administration Radiology Results: ITS Impressions Chest CT 05/03/25 09:17 IMPRESSION: 1. Diffuse lung disease, likely a combination of moderate pulmonary edema and pneumonia. 2. Moderate-sized pleural effusions. 3. Ascites. Renal Ultrasound 05/03/25 11:21 IMPRESSION: 1. No hydronephrosis. Modified Barium Swallow 05/04/25 13:53 IMPRESSION: Pharyngeal dysphagia with laryngeal penetration without aspiration. Please correlate with speech pathologist findings and specific feeding recommendations. Knee X-Ray 05/08/25 14:06 IMPRESSION: 1. Tricompartmental degenerative changes; calcification in the menisci could be associated with pseudogout or CPPD. 2. Extensive vascular calcification may be associated with peripheral artery disease. Chest X-Ray 05/09/25 13:06 IMPRESSION: 1. Interstitial pulmonary edema with pleural effusions. 2. Superimposed airspace disease not excluded. Labs Labs: Laboratory Tests 05/10/25 16:12 05/10/25 06:13 Calcium 9.8 Magnesium 2.4 H Total Bilirubin 0.8 AST 243 H ALT 178 H Alkaline Phosphatase 268 H Total Protein 6.6 Albumin 3.1 L Microbiology 05/08/25 15:20 Blood Blood Culture - Preliminary 05/08/25 15:31 Blood Blood Culture - Preliminary
--- NOTE | 2025-05-10 13:59 | PM.IMPN ---
Progress Note: A&P Assessment and Plan (1) Atrial fibrillation: Qualifiers: Atrial fibrillation type: unspecified chronic Qualified Code(s): I48.20 - Chronic atrial fibrillation, unspecified Code(s): I48.91 - Unspecified atrial fibrillation Status: Chronic (2) Alcohol abuse: Code(s): F10.10 - Alcohol abuse, uncomplicated Status: Acute (3) Acute kidney injury superimposed on CKD: Code(s): N17.9 - Acute kidney failure, unspecified; N18.9 - Chronic kidney disease, unspecified Status: Acute (4) Anemia: Code(s): D64.9 - Anemia, unspecified Status: Acute (5) Shortness of breath: Code(s): R06.02 - Shortness of breath Status: Acute Plan patient with dark tarry seen by GI suspect most likely due to AVM, and his hh now stable, will continue to monitor. Recommending feeding via PEG, patient has not had any seizures while in the hospital Patient white counts trending up, has difficulty with swallowing, x-ray today concerning for pnuemonia, patient is treated with Augmentin, currently NPO, will switch with Zosyn, will monitor, and plan. his is present gave updates. 84 y/o M with PMH of alcohol use disorder, hypertension, prostate cancer, hyperlipidemia, gout, CKD stage IV, seizures, dysphagia S/P peg placement, atrial fibrillation on anticoagulation, anemia of chronic disease, and type 2 diabetes presents here with anemia and bradycardia, melena, shortness of breath x2 days. The patient presents here from [facility] ([facility] via EMS on 05/02 for further evaluation of low hemoglobin and bradycardia. Patient currently at [facility] after a recent admission at [facility] from 04/12/25 to 04/24/25. Seen at that time for altered mental status/new onset seizure disorder. Seizure suspected to be related to alcohol use or withdrawal, started on Keppra 750 mg twice daily. Patient additionally sustained a type 2 odontoid fracture for which he saw neuro surgery and was placed in an [place] collar, follow-up with their service in 6 weeks and discharged to [facility] for PT/OT. Patient also failed MBS on 04/17 for which a PEG tube was placed on 04/20 and he was started on tube feeds, strict NPO, and to continue speech therapy at [facility]. Patient also developed new AFib during this admission for which he was restarted on labetalol for concurrent hypertension and he was started on anticoagulation with Eliquis. Additionally treated for CAP for which he did not require supplemental oxygen. Has since been at [facility] and has had a remarkable recovery up until 05/02/2025 when his Hgb was found to be 5.2, verified via repeat (4.8). Patient also noted to be bradycardic at 54. Per the patient's , he has been experiencing dark tarry stools for the past 4 days. Initial VS at presentation: 97.9? F, HR 54, R 19, 111/54, and 100% on RA. ED workup showed: WBC 10.5, hemoglobin 4.6 (previously 7.5 on 04/25), INR 1.6, sodium 131, creatinine 3.57 and GFR 17 (previously 2.87 and GFR 21 on 04/25), glucose 142, albumin 2.9. Shortness of breath -reported of shortness of breath transiently on 05/03/2025. Chest CT demonstrated diffuse lung disease likely a combination of moderate pulmonary edema and pneumonia, moderate-size pleural effusions, ascites -patient did received 3 units PRBC. Quad viral screen negative. Respiratory pathogen panel pending. Mycoplasma IgM negative. -required O2 transiently. Has been breathing well since on room air. Continue [employer] Lasix 40 mg via feeding tube daily. Melena, acute anemia on chronic anemia -GI consulted. Status post 3 units PRBC. 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 Lesion was cauterized with APC. GI recommended restarting tube feeding, holding Eliquis for 7 days status post EGD. Discontinue Protonix. Hemoglobin has been stable. Patient is trending down. With no signs of bleeding. Will continue to monitor Dysphagia status post PEG placement -speech therapy consulted, modified barium swallow completed on 05/04/2025 after EGD, demonstrates pharyngeal dysphagia with laryngeal penetration without aspiration. Feeding tubes restarted, 1 on 1 oral feeding per speech therapy with continued evaluations and treatment. NANDINI and CKD -recent baseline around 3.0. Presents to serum creatinine 3.49, no improvement after 3 unit PRBC and 1 L of lactated Ringer's -nephrology consultation. Elevated BUN possibly due to GI bleed. Appreciate recommendations. Hamilton catheter removed. -continue intake/output monitoring and daily weights. Hypokalemia: 05/05/2025, replace and monitor Hypertension -at goal. Initially holding amlodipine and hydralazine due to GI bleed. -05/05/2025: Blood pressure is elevated, restart daily amlodipine. History of alcohol use disorder, seizure disorder -continue [employer] Keppra 750 mg p.o. b.i.d. Atrial fibrillation on anticoagulation, bradycardia -currently in sinus bradycardia. Hold [employer] labetalol -continue telemetry Hmt-tnchpzc-wawybswxa diabetes mellitus -Accu-Cheks q.6 hours with low-dose insulin sliding scale and hypoglycemia protocol Type 2 fracture of odontoid process -continue Olin collar -continue PT/OT Leukocytosis -mild, continue to up trend. Afebrile. Patient appears nontoxic, no evidence of active infection will get blood culture x2 Which is pending.UA was 05/07/25. Chest x-ray with CHF and superimposed probable pneumonia. Multiple bowel movement charted. C diff came back negative. Leukocytosis improved down today Hypothermia -on admission, received heating blanket/Alma Hugger, could have been due to anemia. Resolved. Left knee pain x-ray with no fracture however does have tricompartmental degenerative changes, calcification of the menisci which could be associated with pseudo gout or CPPD. Extensive vascular calcification associated with peripheral artery disease. Will continue therapy lidocaine patch added. If not able to bear weight may need to do CT/MRI to further evaluate Dysphagia: Speech therapy, thickened liquids, pureed diet with 1 on 1 feeding. Tube feeds resume. Continue dietitian and speech therapy DVT prophylaxis: Hold [employer] Eliquis, SCDs Received 3 units PRBC in 1 L lactated Ringer's on admission. Saline lock IV Peripheral IV, PEG tube, Hamilton catheter removed DNR Stable on medical floor. Subjective Date/time seen: 05/10/25 13:59 Interval history: no overnight events, left knee pain is better. Has not ambulated since Sunday. No chest pain or shortness of breath. Labs were reviewed and discussed with the patient and the family. Review of Systems Review of Systems: All systems reviewed & are unremarkable except as noted in HPI and below (Subjective) Exam Narrative: GENERAL: The patient is thin built, not in acute distress cervical collar in place HEENT: Nonicteric sclerae, PERRLA, EOMI. Oropharynx clear. Moist mucous membranes. Conjunctivae appear well perfused. CHEST: Chest wall is nontender. HEART: Regular rate and rhythm without murmur, rubs, or gallops LUNGS: Clear to auscultation bilaterally. no respiratory distress ABDOMEN: Soft, positive bowel sounds, non-tender, no organomegaly. G-tube in-situ SKIN: No rash, no excessive bruising, petechiae, or purpura. NEUROLOGIC: Cranial nerves II-XII intact, alert and oriented x 3, no gross motor deficits EXTREMITIES: no edema, cyanosis or clubbing Objective Data Vital Signs Vital Signs: Vital Signs - 24 hr 05/09/25 14:00 05/09/25 20:00 05/09/25 21:19 Temperature 97.5 F L 98.1 F Pulse Rate 67 82 82 Respiratory Rate 20 16 16 Blood Pressure 129/59 L 147/53 H Pulse Oximetry 100 97 97 Oxygen Delivery Room Air Fraction of Inspired Oxygen 21 05/10/25 05:28 05/10/25 09:00 Temperature 97.7 F Pulse Rate 71 Respiratory Rate 16 Blood Pressure 150/59 H Pulse Oximetry 98 Oxygen Delivery Room Air Fraction of Inspired Oxygen Intake/Output Intake/Output: Intake & Output 05/07/25 05/08/25 05/09/25 05/10/25 23:59 23:59 23:59 23:59 Intake Total 794 0 780 Output Total 1550 900 650 200 Balance -756 -900 130 -200 Meds/Results Medications: Active Medications Generic Name Dose Route Start Last Admin Trade Name Freq PRN Reason Stop Dose Admin Acetaminophen 650 mg 05/02/25 20:49 05/09/25 20:21 Acetaminophen Elixir 325 Mg/10.15 Ml Udc FEED TUBE 650 mg Q4H PRN Administration Mild Pain (1-3) or Fever Amlodipine Besylate 5 mg 05/05/25 17:25 05/10/25 08:37 Amlodipine Besylate 5 Mg Tablet FEED TUBE 5 mg DAILY OLENA Administration Dextrose 12.5 gm 05/02/25 20:20 Dextrose 50% 25 Gm/50 Ml Syringe IV PUSH PRN PRN Hypoglycemia Protocol Febuxostat 40 mg 05/06/25 09:00 05/10/25 08:37 Febuxostat 40 Mg Tablet FEED TUBE 40 mg DAILY OLENA Administration Furosemide 20 mg 05/11/25 09:00 Furosemide 20 Mg Tablet FEED TUBE DAILY OLENA Glucagon 1 mg 05/02/25 20:20 Glucagon For Inj 1 Mg Vial IM PRN PRN Hypoglycemia Protocol Glucose 15 gm 05/02/25 20:20 Glucose Oral Gel 15 Gm Of Glucse In 37.5 Gm Tube PO PRN PRN Hypoglycemia Protocol Dextrose 1,000 mls @ 100 mls/hr 05/02/25 20:20 Dextrose 5% 1,000 Ml IVPB PRN PRN Hypoglycemia Protocol Insulin Aspart 2 - 5 units 05/03/25 00:00 05/10/25 12:07 Insulin Aspart (*Bkc) 100 Units/Ml SUB-Q 2 units Q6HR OLENA Administration Protocol Levetiracetam 750 mg 05/02/25 21:00 05/10/25 08:37 Levetiracetam Oral Pallavi 500 Mg/5 Ml Udc FEED TUBE 750 mg Q12HR OLENA Administration Lidocaine 1 patch 05/08/25 09:00 05/10/25 08:37 Lidocaine 5% Patch TRANSDERM 1 patch DAILY OLENA Administration Simvastatin 40 mg 05/03/25 09:00 05/10/25 08:37 Simvastatin 20 Mg Tablet FEED TUBE 40 mg DAILY OLENA Administration Radiology Results: ITS Impressions Chest CT 05/03/25 09:17 IMPRESSION: 1. Diffuse lung disease, likely a combination of moderate pulmonary edema and pneumonia. 2. Moderate-sized pleural effusions. 3. Ascites. Renal Ultrasound 05/03/25 11:21 IMPRESSION: 1. No hydronephrosis. Modified Barium Swallow 05/04/25 13:53 IMPRESSION: Pharyngeal dysphagia with laryngeal penetration without aspiration. Please correlate with speech pathologist findings and specific feeding recommendations. Knee X-Ray 05/08/25 14:06 IMPRESSION: 1. Tricompartmental degenerative changes; calcification in the menisci could be associated with pseudogout or CPPD. 2. Extensive vascular calcification may be associated with peripheral artery disease. Chest X-Ray 05/09/25 13:06 IMPRESSION: 1. Interstitial pulmonary edema with pleural effusions. 2. Superimposed airspace disease not excluded. Labs Labs: Laboratory Results - last 24 hr 05/03/25 05/09/25 05/10/25 11:11 17:47 01:05 WBC RBC Hgb Hct MCV MCH MCHC RDW Plt Count MPV Immature Gran % (Auto) Neut % (Auto) Lymph % (Auto) [place] % (Auto) Eos % (Auto) Baso % (Auto) Lymph # (Auto) [place] # (Auto) Eos # (Auto) Baso # (Auto) Abs Immat Gran (auto) Absolute Neuts (auto) Absolute Nucleated RBC Nucleated RBC % Sodium Potassium Chloride Carbon Dioxide Anion Gap BUN Creatinine Estim Creat Clear Calc Estimated GFR Glucose POC Capillary Glucose 194 H 196 H Calcium Magnesium Total Bilirubin AST ALT Alkaline Phosphatase Total Protein Albumin Chlamy pneumoniae PCR Not detected Adenovirus (PCR) Not detected B. pertussis DNA (PCR) Not detected B.parapertussis DNA PCR Not detected Coronavirus OC43 (PCR) Not detected Coronavirus HKU1 (PCR) Not detected Coronavirus 229E (PCR) Not detected Coronavirus NL63 (PCR) Not detected Human Metapneumovir PCR Not detected Influenza A (H1) PCR Not detected Influ A (H1/09) PCR Not detected Influenza A (H3) PCR Not detected Influenza Type A (PCR) Not detected Influenza Type B (PCR) Not detected M. pneumoniae (PCR) Not detected Parainfluenza 1 (PCR) Not detected Parainfluenza 2 (PCR) Not detected Parainfluenza 3 (PCR) Not detected Parainfluenza 4 (PCR) Not detected RSV (PCR) Not detected Entero/Rhino (PCR) Not detected SARS-CoV-2 (PCR) Not detected 05/10/25 05/10/25 05/10/25 05:42 06:13 07:41 WBC 13.9 H RBC 2.42 L Hgb 7.5 L Hct 23.7 L MCV 97.9 MCH 31.0 MCHC 31.6 L RDW 14.0 Plt Count 303 MPV 10.1 Immature Gran % (Auto) 0.6 H Neut % (Auto) 78.2 H Lymph % (Auto) 6.3 L [place] % (Auto) 11.1 H Eos % (Auto) 3.4 Baso % (Auto) 0.4 Lymph # (Auto) 0.87 L [place] # (Auto) 1.5 H Eos # (Auto) 0.5 H Baso # (Auto) 0.1 Abs Immat Gran (auto) 0.08 H Absolute Neuts (auto) 10.9 H Absolute Nucleated RBC 0.000 Nucleated RBC % 0.0 Sodium 138 Potassium 3.0 L Chloride 102 Carbon Dioxide 24 Anion Gap 12 BUN 129 H* Creatinine 3.35 H Estim Creat Clear Calc 12 Estimated GFR 18 L Glucose 185 H POC Capillary Glucose 192 H 194 H Calcium 9.8 Magnesium 2.4 H Total Bilirubin 0.8 AST 243 H ALT 178 H Alkaline Phosphatase 268 H Total Protein 6.6 Albumin 3.1 L Chlamy pneumoniae PCR Adenovirus (PCR) B. pertussis DNA (PCR) B.parapertussis DNA PCR Coronavirus OC43 (PCR) Coronavirus HKU1 (PCR) Coronavirus 229E (PCR) Coronavirus NL63 (PCR) Human Metapneumovir PCR Influenza A (H1) PCR Influ A () PCR Influenza A (H3) PCR Influenza Type A (PCR) Influenza Type B (PCR) M. pneumoniae (PCR) Parainfluenza 1 (PCR) Parainfluenza 2 (PCR) Parainfluenza 3 (PCR) Parainfluenza 4 (PCR) RSV (PCR) Entero/Rhino (PCR) SARS-CoV-2 (PCR) 05/10/25 11:38 WBC RBC Hgb Hct MCV MCH MCHC RDW Plt Count MPV Immature Gran % (Auto) Neut % (Auto) Lymph % (Auto) [place] % (Auto) Eos % (Auto) Baso % (Auto) Lymph # (Auto) [place] # (Auto) Eos # (Auto) Baso # (Auto) Abs Immat Gran (auto) Absolute Neuts (auto) Absolute Nucleated RBC Nucleated RBC % Sodium Potassium Chloride Carbon Dioxide Anion Gap BUN Creatinine Estim Creat Clear Calc Estimated GFR Glucose POC Capillary Glucose 206 H Calcium Magnesium Total Bilirubin AST ALT Alkaline Phosphatase Total Protein Albumin Chlamy pneumoniae PCR Adenovirus (PCR) B. pertussis DNA (PCR) B.parapertussis DNA PCR Coronavirus OC43 (PCR) Coronavirus HKU1 (PCR) Coronavirus 229E (PCR) Coronavirus NL63 (PCR) Human Metapneumovir PCR Influenza A (H1) PCR Influ A () PCR Influenza A (H3) PCR Influenza Type A (PCR) Influenza Type B (PCR) M. pneumoniae (PCR) Parainfluenza 1 (PCR) Parainfluenza 2 (PCR) Parainfluenza 3 (PCR) Parainfluenza 4 (PCR) RSV (PCR) Entero/Rhino (PCR) SARS-CoV-2 (PCR)
[2025-05-10 14:00] VITALS: BP 153/59; PULSE 77; RESP 12; TEMP 36.1; O2SAT 100
[2025-05-10 16:20] LABS: Hematocrit 22.9 % (42.0-52.0); Hemoglobin 7.4 g/dL (14.0-18.0)
--- NOTE | 2025-05-10 19:50 | P.CONGI_ITS ---
Assessment and Plan Assessment and plan (1) Melena: Code(s): K92.1 - Melena Status: Acute Assessment and Plan: Mr. Shantanu Burleson is an 84-year-old male with a complex history including CKD Stage 4 and Atrial Fibrillation (Eliquis held) who presented with melena and severe anemia. An EGD on 05/04 revealed two duodenal AVMs, which were treated with APC. Despite transfusions that raised his hemoglobin 4.6 to 9.1, his current Hb is trending down at 7.4, and he has had a recurrence of dark stools. This recurrent GI bleeding, common with his advanced renal failure, suggests the likely presence of additional, more distal AVMs. Given the recent EGD and ablation of the visible AVMs, there is no indication for immediate repeat endoscopy; instead, a Video Capsule Endoscopy will be scheduled post-discharge to evaluate for distal sources. Furthermore, a Hematology consultation is recommended to optimize his iron stores, consider Erythropoietin-Stimulating Agents and establish a clear protocol for chronic Hb monitoring and transfusion as needed. (2) AVM (arteriovenous malformation) of duodenum, acquired with hemorrhage: Code(s): K31.811 - Angiodysplasia of stomach and duodenum with bleeding Status: Acute GI Consult Note Consult date/time: 05/10/25 19:50 Reason for consult: Melena, anemia HPI: Mr. Shantanu Burleson is an 84-year-old male with a known history of CKD Stage 4 and Atrial Fibrillation, for which his Eliquis was recently held due to a gastrointestinal bleed. He presented with melena and a significant drop in hemoglobin (Hb). An EGD on 05/04 revealed two arteriovenous malformations (AVMs) in the second portion of the duodenum, which were successfully treated with argon plasma coagulation . His creatinine has remained elevated (3.5 on 05/02, 3.35 today). Despite transfusions that raised his Hb from 4.6 (05/02) to 9.1 (05/06), his current Hb is trending down at 7.4. We were consulted today due to the recurrence of dark stools and the falling hemoglobin level. This morning his stools were dark brown, not melanotic. Review of Systems 2 Review of Systems: All systems reviewed & are unremarkable except as noted in HPI and below PMFSH Past Medical History Medical History (Updated 05/10/25 @ 19:50 by Paola Adams MD) AVM (arteriovenous malformation) of duodenum, acquired with hemorrhage Acute on chronic anemia Melena Atherosclerosis of aorta Atrial fibrillation HTN (hypertension) Alcohol abuse Malignant neoplasm of prostate Dysphonia Chronic bilateral low back pain Encephalopathy Mixed hyperlipidemia NANDINI (acute kidney injury) Pneumonia Fluid overload Epistaxis r nares no bleeding site seen Gout, unspecified Gout CKD (chronic kidney disease) stage 4, GFR 15-29 ml/min Osteoarthrosis, localized, primary, involving lower leg Osteoarthrosis, localized, primary, involving hand Lumbar stenosis Anemia in chronic kidney disease Diabetes mellitus currently diet controlled, A1C 6.1% on 02/27/25 Surgical History Surgical History H/O cataract extraction History of appendectomy H/O laminectomy C3-C4 History of carpal tunnel release History of repair of rotator cuff H/O arthroscopy of knee Family History Family History Mother Hypertension, Onset Age: 72 Father Malignant neoplasm of prostate, Onset Age: 76 Social History Social History Social History: Caffeine- coffee Smoking packs per day: 1 Smoking cigarettes per day: 20.0 Years smoked: 40 Smoking pack-years: 40.00 Smoking status: Former smoker Tobacco type: cigarettes Second hand tobacco smoke exposure: No Additional smoking assessment comments: Quit 40 years ago Alcohol intake: current Drinks per week: 10 Substance use: never Substance use type: does not use Do You Feel Safe in your Home?: Yes Lack of Transportation: No Lack of Food: Never True Current Housing: I Have Housing Concerned About Future Housing: No Difficulty Paying Gas/Electric Bills: No Difficulty Paying for Meds: No Currently Unemployed: No Education: Trade/Vocational Certificate Difficulty w/ Childcare or Family Care: No Gender identity (if verbalized by the patient): Male Spiritual care concerns: No Meds Home Medications and Allergies Home Medications ?Medication ?Instructions ?Recorded ?Confirmed ?Type acetaminophen 160 mg/5 mL oral 650 mg (20.3125 mL) fee ding tube 04/24/25 05/02/25 Rx suspension (Nortemp) Q4H PRN Mild Pain (1-3) Or F ever #30 mL amlodipine 5 mg tablet (Norvasc) 5 mg feeding tube RICK LY #30 tabs 04/24/25 05/02/25 Rx apixaban 2.5 mg tablet (Eliquis) 2.5 mg feeding tube Q 12HR #60 tabs 04/24/25 05/02/25 Rx famotidine 20 mg tablet (Pepcid) 10 mg (1/2 x 20 mg) f eeding tube 04/24/25 05/02/25 Rx EVERY OTHER DAY #30 tabs febuxostat 80 mg tablet 80 mg feeding tube DAILY #90 tabs 04/24/25 05/02/25 Rx furosemide 40 mg tablet See Rx Instructions .Route . COMPLEX 04/24/25 05/02/25 History hydralazine 25 mg tablet 25 mg feeding tube Q8H #90 t abs 04/24/25 05/02/25 Rx levetiracetam 100 mg/mL oral 750 mg (7.5 mL) feeding t ube Q12HR 04/24/25 05/02/25 Rx solution #473 mL simvastatin 40 mg tablet See Rx Instructions .Route . COMPLEX 04/24/25 05/02/25 History labetalol 100 mg tablet 100 mg feeding tube Q12H 02/1605/02/25 History Allergies Allergy/AdvReac Type Severity Reaction Status Date / Time allopurinol Allergy Unknown Skin Verified 05/02/25 18:36 Reaction diclofenac Allergy Unknown Pt doesn't Verified 05/02/25 18:36 know doxycycline Allergy Unknown hands Verified 05/02/25 18:36 probenecid Allergy Unknown Skin Verified 05/02/25 18:36 Reaction Vital Signs Vital Signs - 24 hr 05/09/25 20:00 05/09/25 21:19 05/10/25 05:28 Temperature 98.1 F 97.7 F Pulse Rate 82 82 71 Respiratory Rate 16 16 16 Blood Pressure 147/53 H 150/59 H Pulse Oximetry 97 97 98 Oxygen Delivery Room Air Fraction of Inspired Oxygen 21 05/10/25 09:00 05/10/25 14:00 Temperature 97 F L Pulse Rate 77 Respiratory Rate 12 Blood Pressure 153/59 H Pulse Oximetry 100 Oxygen Delivery Room Air Fraction of Inspired Oxygen Results Labs 05/11/25 05:20 05/11/25 05:20 Labs: Short CBC 05/10/25 05/10/25 Range/Units 06:13 16:12 WBC 13.9 H (4.5-10.0) K/mm3 Hgb 7.5 L 7.4 L (14.0-18.0) g/dL Hct 23.7 L 22.9 L (42.0-52.0) % Plt Count 303 (150-375) k/mm3 BMP 05/10/25 06:13 Sodium 138 Potassium 3.0 L Chloride 102 Carbon Dioxide 24 BUN 129 H* Creatinine 3.35 H Glucose 185 H Calcium 9.8 Liver Function 05/10/25 Range/Units 06:13 Total Bilirubin 0.8 (0.2-1.3) mg/dL AST 243 H (17-59) U/L ALT 178 H (6-50) U/L Alkaline Phosphatase 268 H (38-126) U/L Albumin 3.1 L (3.5-5.1) g/dL
[2025-05-10 20:11] VITALS: BP 159/58; PULSE 78; RESP 17; TEMP 36.2; O2SAT 97
[2025-05-10] MEDS: PANTOPRAZOLE SODIUM IV 40 MG VIAL IV PUSH (21:24)
[2025-05-10 22:37] LABS: Hematocrit 22.7 % (42.0-52.0); Hemoglobin 7.2 g/dL (14.0-18.0)
[2025-05-11 05:51] LABS: Hematocrit 22.0 % (42.0-52.0); Hemoglobin 7.1 g/dL (14.0-18.0); Immature Granulocyte Percent A 0.6 % (0-0.5); Lymphocytes Absolute Auto 0.95 K/mm3 (0.9-3.2); Mean Corpuscular HGB Conc 32.3 g/dl (32-36); Mean Corpuscular Hemoglobin 31.4 pg (26-34); Mean Corpuscular Volume 97.3 fl (80-100); Nucleated Red Blood Cells Absolute Auto 0.000 K/mm3 (0.0-0.012); Nucleated Red Blood Cells Perc 0.0 % (0.0-0.2); Platelet Count Result 302 k/mm3 (150-375); Red Blood Count 2.26 M/mm3 (4.6-6.20); White Blood Count 11.4 K/mm3 (4.5-10.0)
[2025-05-11 06:00] VITALS: BP 150/57; PULSE 73; RESP 16; TEMP 36.1; O2SAT 100
[2025-05-11 06:04] LABS: Alanine Aminotransferase 141 U/L (6-50); Albumin Level 2.9 g/dL (3.5-5.1); Alkaline Phosphatase 272 U/L (38-126); Anion Gap 13 mmol/L (4-12); Aspartate Amino Transferase 135 U/L (17-59); Bilirubin,Total 0.6 mg/dL (0.2-1.3); Calcium 9.6 mg/dL (8.4-10.2); Carbon Dioxide 21 mmol/L (22-30); Chloride 104 mmol/L (98-107); Estimated CRCL calculation 12 ml/min; Estimated Glomerular Filt Rate 18; Glucose 192 mg/dL (65-110); Magnesium 2.6 mg/dL (1.6-2.3); Potassium 3.4 mmol/L (3.4-5.0); Sodium 138 mmol/L (137-145); Total Protein 6.5 g/dL (6.3-8.2)
[2025-05-11 06:22] LABS: Blood Urea Nitrogen 135 mg/dL (9-20)
[2025-05-11] MEDS: levETIRAcetam ORAL SOL 500 MG/5 ML UDC 750 MG FEED TUBE ×2 (09:10→22:02)
[2025-05-11] MEDS: SIMVASTATIN 20 MG TABLET 40 MG FEED TUBE (09:11)
[2025-05-11] MEDS: LIDOCAINE 5% PATCH 1 PATCH TRANSDERM (09:11)
[2025-05-11] MEDS: FUROSEMIDE 20 MG TABLET FEED TUBE (09:11)
[2025-05-11] MEDS: FEBUXOSTAT 40 MG TABLET FEED TUBE (09:12)
[2025-05-11] MEDS: PANTOPRAZOLE SODIUM IV 40 MG VIAL IV PUSH (09:12)
--- NOTE | 2025-05-11 11:20 | P.PNNP_ITS ---
Progress Note: A&P Assessment and Plan (1) Acute kidney injury: Code(s): N17.9 - Acute kidney failure, unspecified Status: Acute Assessment and Plan: * fluctuating in the last 24 - 48 hours * suspect due a few issues: * prerenal factors * severe anemia * pneumonia * other * evaluation to date noted: * renal u/s without obstruction * urine electrolytes are prerenal * UA without evidence of infection * proteinuria noted * CPK low * still making good urine output * possible overdiuresis(?) * however recent CXR with evidence of congestion/fluid * azotemia/elevated BUN noted -- likely due to #3; something else contributing(?) * holding diuretics at this time * consider trial of IVFs given #3 * follow trend of repeat labs and UOP (2) Stage 4 chronic kidney disease: Code(s): N18.4 - Chronic kidney disease, stage 4 (severe) Status: Chronic Assessment and Plan: * fluctuates to extremes at baseline... * runs anywhere from 2.5 - 3.5mg/dL * in the last 3 - 4 months, creatinine has been running around 2.5 - 3.0mg/dl * due to hypertension, diabetes, vascular disease, and age related change along chronic diuretic therapy to maintain volume status (3) Azotemia: Code(s): R79.89 - Other specified abnormal findings of blood chemistry Status: Acute Assessment and Plan: * worsening in the last few days] * suspect due to ongoing slow GI bleeding * another potential etiology(?) (4) GI bleed: Qualifiers: GI bleed type/associated pathology: melena Qualified Code(s): K92.1 - Melena Code(s): K92.2 - Gastrointestinal hemorrhage, unspecified Status: Acute Assessment and Plan: * as noted by anemia and black tarry stools on admission * s/p 3 units of PRBC transfusion * s/p EGD on 05/04 with findings noted: * 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 with small amount of hematin in the lumen * s/p cauterization with APC * GI recommendations noted * holding Eliquis * on PPI * suspect more AVMs present causing slow oozing of blood - noted plans for outpatient capsule endoscopy * suspected etiology of elevated BUN/azotemia * follow trend of H/H (5) Anemia: Code(s): D64.9 - Anemia, unspecified Status: Acute Assessment and Plan: * partly related to NANDINI, CKD, and complicated by #4 * follow trend of H/H * start THEO/Epogen today (6) Left knee pain: Code(s): M25.562 - Pain in left knee Status: Acute Assessment and Plan: * slow improvement * X-rays noted * pain control as tolerated (7) Shortness of breath: Code(s): R06.02 - Shortness of breath Status: Acute Assessment and Plan: * clinically seems better if not resolved * CT imaging noted: * moderate pulmonary edema * pneumonia * pleural effusions * ascites * viral testing for influenza/RSV/COVID negative * remains on oral diuretic therapy * off oxygen at this time * follow respiratory status (8) Pneumonia: Code(s): J18.9 - Pneumonia, unspecified organism Status: Acute Assessment and Plan: * as noted by admission imaging * follow culture data (negative to date) * completed course of antibiotics (9) Atrial fibrillation: Qualifiers: Atrial fibrillation type: unspecified chronic Qualified Code(s): I48.20 - Chronic atrial fibrillation, unspecified Code(s): I48.91 - Unspecified atrial fibrillation Status: Chronic Assessment and Plan: * rate control strategy * Eliquis on hold (see #4) (10) Hyponatremia: Code(s): E87.1 - Hypo-osmolality and hyponatremia Status: Acute Assessment and Plan: * improving if not resolved * likely related to NANDINI on CKD * follow trend (11) Dysphagia: Qualifiers: Dysphagia type: unspecified Qualified Code(s): R13.10 - Dysphagia, unspecified Code(s): R13.10 - Dysphagia, unspecified Status: Chronic Assessment and Plan: * s/p PEG tube placement * speech therapy recommendations and MBS noted * on tube feedings (12) Hypertension: Code(s): I10 - Essential (primary) hypertension Status: Chronic Assessment and Plan: * reasonable control * follow trend of hemodynamics (13) Diabetes mellitus: Qualifiers: Diabetes mellitus type: type 2 Diabetes mellitus terminal block assembler insulin use: without terminal block assembler use Diabetes mellitus complication status: with kidney complications Diabetes mellitus complication detail: with chronic kidney dise ase Chronic kidney disease stage: stage 4 (severe) Qualified Code(s): E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; N18.4 - Chronic kidney disease, stage 4 (severe) Code(s): E11.9 - Type 2 diabetes mellitus without complications Status: Chronic Assessment and Plan: * follow accu-cheks * glycemic control per hospitalist (14) Type II fracture of odontoid process: Qualifiers: Encounter type: subsequent encounter Fracture type: closed Fracture alignment: nondisplaced Fracture healing: with routine healing Qualified Code(s): S12.112D - Nondisplaced Type II dens fracture, subsequent encounter for fracture with routine healing Code(s): S12.110A - Anterior displaced Type II dens fracture, initial encounter for closed fracture Status: Chronic Assessment and Plan: * as noted on previous imaging * conservative therapy per Neurosurgery * Lawrence collar in place * ongoing PT/OT as tolerated Will continue to follow. Subjective Date/time seen: 05/11/25 11:20 Interval history: Follow-up for acute kidney injury/acute renal failure on chronic kidney disease. Renal function/creatinine relatively stable but BUN continues to climb; H/H has been slowly declining sine 05/07; this is further complicated by noted black/dark stools as well arguing possibly due to ongoing/slow bleeding; no apparent distress noted -- left knee pain seems netter; continues to work with therapy as tolerated. Exam Narrative: General: elderly but WD/WN male in NAD; Lawrence collar in place Heart: normal S1 and S2; no rub Lungs: clear anteriorly Abdomen: soft, nontender, nondistended, positive bowel sounds Extremities: no cyanosis or clubbing; no edema Skin: no nodules Objective Data Vital Signs Vital Signs: Vital Signs Temp Pulse Resp BP Pulse Ox O2 Del Method 05/11/25 09:00 Room Air 05/11/25 06:00 97.0 F L 73 16 150/57 H 100 05/10/25 20:11 97.2 F L 78 17 159/58 H 97 05/10/25 20:00 Room Air Intake/Output Intake/Output: Intake & Output 05/08/25 05/09/25 05/10/25 05/11/25 23:59 23:59 23:59 23:59 Intake Total 0 780 1355 740 Output Total 900 596 562 1636 Balance -324 687 5060 -260 Meds/Results Medications: Active Medications Generic Name Dose Route Start Last Admin Trade Name Freq PRN Reason Stop Dose Admin Acetaminophen 650 mg 05/02/25 20:49 05/09/25 20:21 Acetaminophen Elixir 325 Mg/10.15 Ml Udc FEED TUBE 650 mg Q4H PRN Administration Mild Pain (1-3) or Fever Amlodipine Besylate 5 mg 05/05/25 17:25 05/11/25 09:10 Amlodipine Besylate 5 Mg Tablet FEED TUBE 5 mg DAILY OLENA Administration Dextrose 12.5 gm 05/02/25 20:20 Dextrose 50% 25 Gm/50 Ml Syringe IV PUSH PRN PRN Hypoglycemia Protocol Febuxostat 40 mg 05/06/25 09:00 05/11/25 09:12 Febuxostat 40 Mg Tablet FEED TUBE 40 mg DAILY OLENA Administration Furosemide 20 mg 05/11/25 09:00 05/11/25 09:11 Furosemide 20 Mg Tablet FEED TUBE 20 mg On Hold: 05/11/25 15:43 DAILY OLENA Administration Glucagon 1 mg 05/02/25 20:20 Glucagon For Inj 1 Mg Vial IM PRN PRN Hypoglycemia Protocol Glucose 15 gm 05/02/25 20:20 Glucose Oral Gel 15 Gm Of Glucse In 37.5 Gm Tube PO PRN PRN Hypoglycemia Protocol Dextrose 1,000 mls @ 100 mls/hr 05/02/25 20:20 Dextrose 5% 1,000 Ml IVPB PRN PRN Hypoglycemia Protocol Sodium Chloride 1,000 mls @ 75 mls/hr 05/11/25 15:45 05/11/25 16:51 Normal Saline Iv IV CONT 75 mls/hr .[id number] OLENA Administration Insulin Aspart 2 - 5 units 05/03/25 00:00 05/11/25 12:02 Insulin Aspart (*Bkc) 100 Units/Ml SUB-Q 2 units Q6HR OLENA Administration Protocol Levetiracetam 750 mg 05/02/25 21:00 05/11/25 09:10 Levetiracetam Oral Pallavi 500 Mg/5 Ml Udc FEED TUBE 750 mg Q12HR OLENA Administration Lidocaine 1 patch 05/08/25 09:00 05/11/25 09:11 Lidocaine 5% Patch TRANSDERM 1 patch DAILY OLENA Administration Octreotide Acetate 50 mcg 05/11/25 18:00 Octreotide Acetate 50 Mcg/Ml Vial SUB-Q Q12H OLENA Pantoprazole Sodium 40 mg 05/10/25 21:00 05/11/25 09:12 Pantoprazole Sodium Iv 40 Mg Vial IV PUSH 40 mg Q12HR OLENA Administration Simvastatin 40 mg 05/03/25 09:00 05/11/25 09:11 Simvastatin 20 Mg Tablet FEED TUBE 40 mg DAILY OLENA Administration Radiology Results: ITS Impressions Chest CT 05/03/25 09:17 IMPRESSION: 1. Diffuse lung disease, likely a combination of moderate pulmonary edema and pn eumonia. 2. Moderate-sized pleural effusions. 3. Ascites. Renal Ultrasound 05/03/25 11:21 IMPRESSION: 1. No hydronephrosis. Modified Barium Swallow 05/04/25 13:53 IMPRESSION: Pharyngeal dysphagia with laryngeal penetration without aspiration. Please correlate with speech pathologist findings and specific feeding recommendations. Knee X-Ray 05/08/25 14:06 IMPRESSION: 1. Tricompartmental degenerative changes; calcification in the menisci could be associated with pseudogout or CPPD. 2. Extensive vascular calcification may be associated with peripheral artery disease. Chest X-Ray 05/09/25 13:06 IMPRESSION: 1. Interstitial pulmonary edema with pleural effusions. 2. Superimposed airspace disease not excluded. Labs Labs: Laboratory Tests 05/11/25 05:20 WBC 11.4 H Hgb 7.1 L Hct 22.0 L Plt Count 302 Sodium 138 Potassium 3.4 Chloride 104 Carbon Dioxide 21 L Anion Gap 13 H BUN 135 H* Creatinine 3.23 H Estim Creat Clear Calc 12 Estimated GFR 18 L Glucose 192 H Calcium 9.6 Magnesium 2.6 H Total Bilirubin 0.6 AST 135 H ALT 141 H Alkaline Phosphatase 272 H Total Protein 6.5 Albumin 2.9 L Microbiology 05/08/25 15:20 Blood Blood Culture - Preliminary 05/08/25 15:31 Blood Blood Culture - Preliminary
[2025-05-11] MEDS: INSULIN ASPART (*BKC) 100 UNITS/ML SUB-Q (12:02)
[2025-05-11 13:05] LABS: Hematocrit 22.5 % (42.0-52.0); Hemoglobin 7.3 g/dL (14.0-18.0)
[2025-05-11 14:00] VITALS: BP 141/59; PULSE 69; RESP 17; TEMP 36.4; O2SAT 99
--- NOTE | 2025-05-11 15:16 | PCOTNOTE ---
Attempted to see Patient at this time. Patient is in bed, seems to be having increased frustration, I want Ice Water, no one understands. Patient verbalized I don't feel good, I'm so weak. Patient is not willing to participate at this time.
--- NOTE | 2025-05-11 15:40 | P.PNIM_ITS ---
Progress Note: A&P Assessment and Plan (1) Atrial fibrillation: Qualifiers: Atrial fibrillation type: unspecified chronic Qualified Code(s): I48.20 - Chronic atrial fibrillation, unspecified Code(s): I48.91 - Unspecified atrial fibrillation Status: Chronic (2) Alcohol abuse: Code(s): F10.10 - Alcohol abuse, uncomplicated Status: Acute (3) Acute kidney injury superimposed on CKD: Code(s): N17.9 - Acute kidney failure, unspecified; N18.9 - Chronic kidney disease, unspecified Status: Acute (4) Anemia: Code(s): D64.9 - Anemia, unspecified Status: Acute (5) Shortness of breath: Code(s): R06.02 - Shortness of breath Status: Acute Plan patient with dark tarry seen by GI suspect most likely due to AVM, and his hh now stable, will continue to monitor. Recommending feeding via PEG, patient has not had any seizures while in the hospital Patient white counts trending up, has difficulty with swallowing, x-ray today concerning for pnuemonia, patient is treated with Augmentin, currently NPO, will switch with Zosyn, will monitor, and plan. his is present gave updates. 84 y/o M with PMH of alcohol use disorder, hypertension, prostate cancer, hyperlipidemia, gout, CKD stage IV, seizures, dysphagia S/P peg placement, atrial fibrillation on anticoagulation, anemia of chronic disease, and type 2 diabetes presents here with anemia and bradycardia, melena, shortness of breath x2 days. The patient presents here from [facility] via EMS on 05/02 for further evaluation of low hemoglobin and bradycardia. Patient currently at [facility] after a recent admission at [facility] from 04/12/25 to 04/24/25. Seen at that time for altered mental status/new onset seizure disorder. Seizure suspected to be related to alcohol use or withdrawal, started on Keppra 750 mg twice daily. Patient additionally sustained a type 2 odontoid fracture for which he saw neuro surgery and was placed in an [place] collar, follow-up with their service in 6 weeks and discharged to [facility] for PT/OT. Patient also failed MBS on 04/17 for which a PEG tube was placed on 04/20 and he was started on tube feeds, strict NPO, and to continue speech therapy at [facility]. Patient also devel oped new AFib during this admission for which he was restarted on labetalol for concurrent hypertension and he was started on anticoagulation with Eliquis. Additionally treated for CAP for which he did not require supplemental oxygen. Has since been at [facility] and has had a remarkable recovery up until 05/02/2025 when his Hgb was found to be 5.2, verified via repeat (4.8). Patient also noted to be bradycardic at 54. Per the patient's , he has been experiencing dark tarry stools for the past 4 days. Initial VS at presentation: 97.9? F, HR 54, R 19, 111/54, and 100% on RA. ED workup showed: WBC 10.5, hemoglobin 4.6 (previously 7.5 on 04/25), INR 1.6, sodium 131, creatinine 3.57 and GFR 17 (previously 2.87 and GFR 21 on 04/25), glucose 142, albumin 2.9. Shortness of breath -reported of shortness of breath transiently on 05/03/2025. Chest CT demonstrated diffuse lung disease likely a combination of moderate pulmonary edema and pneumonia, moderate-size pleural effusions, ascites -patient did received 3 units PRBC. Quad viral screen negative. Respiratory pathogen panel pending. Mycoplasma IgM negative. -required O2 transiently. Has been breathing well since on room air. Continue [employer] Lasix 40 mg via feeding tube daily. Melena, acute anemia on chronic anemia -GI consulted. Status post 3 units PRBC. 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 Lesion was cauterized with APC. GI recommended restarting tube feeding, holding Eliquis for 7 days status post EGD. Discontinue Protonix. Hemoglobin has been stable. Patient is trending down. With no signs of bleeding. Will continue to monitor 05/10/2025 started having dark stool. GI reconsulted. Added on PPI Plans for outpatient capsule endoscopy for suspected more AVMs. Transfuse if hemoglobin less than 7 octreotide for AVMs discussed. will start that Dysphagia status post PEG placement -speech therapy consulted, modified barium swallow completed on 05/04/2025 after EGD, demonstrates pharyngeal dysphagia with laryngeal penetration without aspiration. Feeding tubes restarted, 1 on 1 oral feeding per speech therapy with continued evaluations and treatment. NANDINI and CKD -recent baseline around 3.0. Presents to serum creatinine 3.49, no improvement after 3 unit PRBC and 1 L of lactated Ringer's -nephrology consultation. Elevated BUN possibly due to GI bleed. Appreciate recommendations. Hamilton catheter removed. -continue intake/output monitoring and daily weights. Hypokalemia: 05/05/2025, replace and monitor Hypertension -at goal. Initially holding amlodipine and hydralazine due to GI bleed. -05/05/2025: Blood pressure is elevated, restart daily amlodipine. History of alcohol use disorder, seizure disorder -continue ELECT[employer] Keppra 750 mg p.o. b.i.d. Atrial fibrillation on anticoagulation, bradycardia -currently in sinus bradycardia. Hold ELECT[employer] labetalol -continue telemetry Eliquis on hold due to GI bleed Sdn-uwjcwbq-lcdagzweq diabetes mellitus -Accu-Cheks q.6 hours with low-dose insulin sliding scale and hypoglycemia protocol Type 2 fracture of odontoid process -continue [place]ace[place] collar -continue PT/OT Leukocytosis -mild, continue to up trend. Afebrile. Patient appears nontoxic, no evidence of active infection will get blood culture x2 Which is pending.UA was 05/07/25. Chest x-ray with CHF and superimposed probable pneumonia. Multiple bowel movement charted. C diff came back negative. Leukocytosis improved down and continues to improve Hypothermia -on admission, received heating blanket/Alma Hugger, could have been due to anemia. Resolved. Left knee pain x-ray with no fracture however does have tricompartmental degenerative changes, calcification of the menisci which could be associated with pseudo gout or CPPD. Extensive vascular calcification associated with peripheral artery disease. Will continue therapy lidocaine patch added. If not able to bear weight may need to do CT/MRI to further evaluate Dysphagia: Speech therapy, thickened liquids, pureed diet with 1 on 1 feeding. Tube feeds resume. Continue dietitian and speech therapy DVT prophylaxis: Hold E[employer] Eliquis, SCDs with ongoing bleeding likely hold Eliquis. Received 3 units PRBC in 1 L lactated Ringer's on admission. Saline lock IV Peripheral IV, PEG tube, Hamilton catheter removed DNR Stable on medical floor. Subjective Date/time seen: 05/11/25 15:40 Interval history: Patient started having dark stool. H&H continue to drop. Denies any dizziness or lightheadedness. Work with therapy. Left knee pain is getting better. Family at bedside and discussed with them. Review of Systems Review of Systems: All systems reviewed & are unremarkable except as noted in HPI and below (Subjective) Exam Narrative: GENERAL: The patient is thin built, not in acute distress cervical collar in place HEENT: Nonicteric sclerae, PERRLA, EOMI. Oropharynx clear. Moist mucous membranes. Conjunctivae appear well perfused. CHEST: Chest wall is nontender. HEART: Regular rate and rhythm without murmur, rubs, or gallops LUNGS: Clear to auscultation bilaterally. no respiratory distress ABDOMEN: Soft, positive bowel sounds, non-tender, no organomegaly. G-tube in- situ SKIN: No rash, no excessive bruising, petechiae, or purpura. NEUROLOGIC: Cranial nerves II-XII intact, alert and oriented x 3, no gross motor deficits EXTREMITIES: no edema, cyanosis or clubbing Objective Data Vital Signs Vital Signs: Vital Signs - 24 hr 05/10/25 20:00 05/10/25 20:11 05/11/25 06:00 Temperature 97.2 F L 97.0 F L Pulse Rate 78 73 Respiratory Rate 17 16 Blood Pressure 159/58 H 150/57 H Pulse Oximetry 97 100 Oxygen Delivery Room Air 05/11/25 09:00 05/11/25 14:00 Temperature 97.5 F L Pulse Rate 69 Respiratory Rate 17 Blood Pressure 141/59 H Pulse Oximetry 99 Oxygen Delivery Room Air Intake/Output Intake/Output: Intake & Output 05/08/25 05/09/25 05/10/25 05/11/25 23:59 23:59 23:59 23:59 Intake Total 0 780 1355 740 Output Total 900 646 969 5205 Balance -356 990 0589 -260 Meds/Results Medications: Active Medications Generic Name Dose Route Start Last Admin Trade Name Freq PRN Reason Stop Dose Admin Acetaminophen 650 mg 05/02/25 20:49 05/09/25 20:21 Acetaminophen Elixir 325 Mg/10.15 Ml Udc FEED TUBE 650 mg Q4H PRN Administration Mild Pain (1-3) or Fever Amlodipine Besylate 5 mg 05/05/25 17:25 05/11/25 09:10 Amlodipine Besylate 5 Mg Tablet FEED TUBE 5 mg DAILY OLENA Administration Dextrose 12.5 gm 05/02/25 20:20 Dextrose 50% 25 Gm/50 Ml Syringe IV PUSH PRN PRN Hypoglycemia Protocol Febuxostat 40 mg 05/06/25 09:00 05/11/25 09:12 Febuxostat 40 Mg Tablet FEED TUBE 40 mg DAILY OLENA Administration Furosemide 20 mg 05/11/25 09:00 05/11/25 09:11 Furosemide 20 Mg Tablet FEED TUBE 20 mg DAILY OLENA Administration Glucagon 1 mg 05/02/25 20:20 Glucagon For Inj 1 Mg Vial IM PRN PRN Hypoglycemia Protocol Glucose 15 gm 05/02/25 20:20 Glucose Oral Gel 15 Gm Of Glucse In 37.5 Gm Tube PO PRN PRN Hypoglycemia Protocol Dextrose 1,000 mls @ 100 mls/hr 05/02/25 20:20 Dextrose 5% 1,000 Ml IVPB PRN PRN Hypoglycemia Protocol Insulin Aspart 2 - 5 units 05/03/25 00:00 05/11/25 12:02 Insulin Aspart (*Bkc) 100 Units/Ml SUB-Q 2 units Q6HR OLENA Administration Protocol Levetiracetam 750 mg 05/02/25 21:00 05/11/25 09:10 Levetiracetam Oral Pallavi 500 Mg/5 Ml Udc FEED TUBE 750 mg Q12HR OLENA Administration Lidocaine 1 patch 05/08/25 09:00 05/11/25 09:11 Lidocaine 5% Patch TRANSDERM 1 patch DAILY OLENA Administration Pantoprazole Sodium 40 mg 05/10/25 21:00 05/11/25 09:12 Pantoprazole Sodium Iv 40 Mg Vial IV PUSH 40 mg Q12HR OLENA Administration Simvastatin 40 mg 05/03/25 09:00 05/11/25 09:11 Simvastatin 20 Mg Tablet FEED TUBE 40 mg DAILY OLNEA Administration Radiology Results: ITS Impressions Chest CT 05/03/25 09:17 IMPRESSION: 1. Diffuse lung disease, likely a combination of moderate pulmonary edema and pneumonia. 2. Moderate-sized pleural effusions. 3. Ascites. Renal Ultrasound 05/03/25 11:21 IMPRESSION: 1. No hydronephrosis. Modified Barium Swallow 05/04/25 13:53 IMPRESSION: Pharyngeal dysphagia with laryngeal penetration without aspiration. Please correlate with speech pathologist findings and specific feeding recommendations. Knee X-Ray 05/08/25 14:06 IMPRESSION: 1. Tricompartmental degenerative changes; calcification in the menisci could be associated with pseudogout or CPPD. 2. Extensive vascular calcification may be associated with peripheral artery disease. Chest X-Ray 05/09/25 13:06 IMPRESSION: 1. Interstitial pulmonary edema with pleural effusions. 2. Superimposed airspace disease not excluded. Labs Labs: Laboratory Results - last 24 hr 05/10/25 05/10/25 05/10/25 16:12 17:32 22:24 WBC RBC Hgb 7.4 L 7.2 L Hct 22.9 L 22.7 L MCV MCH MCHC RDW Plt Count MPV Immature Gran % (Auto) Neut % (Auto) Lymph % (Auto) [place] % (Auto) Eos % (Auto) Baso % (Auto) Lymph # (Auto) [place] # (Auto) Eos # (Auto) Baso # (Auto) Abs Immat Gran (auto) Absolute Neuts (auto) Absolute Nucleated RBC Nucleated RBC % Sodium Potassium Chloride Carbon Dioxide Anion Gap BUN Creatinine Estim Creat Clear Calc Estimated GFR Glucose POC Capillary Glucose 178 H Calcium Magnesium Total Bilirubin AST ALT Alkaline Phosphatase Total Protein Albumin 05/10/25 05/11/25 05/11/25 23:24 04:35 05:20 WBC 11.4 H RBC 2.26 L Hgb 7.1 L Hct 22.0 L MCV 97.3 MCH 31.4 MCHC 32.3 RDW 14.0 Plt Count 302 MPV 10.4 Immature Gran % (Auto) 0.6 H Neut % (Auto) 72.8 Lymph % (Auto) 8.4 L [place] % (Auto) 11.5 H Eos % (Auto) 6.1 H Baso % (Auto) 0.6 Lymph # (Auto) 0.95 [place] # (Auto) 1.3 H Eos # (Auto) 0.7 H Baso # (Auto) 0.1 Abs Immat Gran (auto) 0.07 H Absolute Neuts (auto) 8.3 H Absolute Nucleated RBC 0.000 Nucleated RBC % 0.0 Sodium 138 Potassium 3.4 Chloride 104 Carbon Dioxide 21 L Anion Gap 13 H BUN 135 H* Creatinine 3.23 H Estim Creat Clear Calc 12 Estimated GFR 18 L Glucose 192 H POC Capillary Glucose 197 H 191 H Calcium 9.6 Magnesium 2.6 H Total Bilirubin 0.6 AST 135 H ALT 141 H Alkaline Phosphatase 272 H Total Protein 6.5 Albumin 2.9 L 05/11/25 05/11/25 11:56 12:48 WBC RBC Hgb 7.3 L Hct 22.5 L MCV MCH MCHC RDW Plt Count MPV Immature Gran % (Auto) Neut % (Auto) Lymph % (Auto) [place] % (Auto) Eos % (Auto) Baso % (Auto) Lymph # (Auto) [place] # (Auto) Eos # (Auto) Baso # (Auto) Abs Immat Gran (auto) Absolute Neuts (auto) Absolute Nucleated RBC Nucleated RBC % Sodium Potassium Chloride Carbon Dioxide Anion Gap BUN Creatinine Estim Creat Clear Calc Estimated GFR Glucose POC Capillary Glucose 207 H Calcium Magnesium Total Bilirubin AST ALT Alkaline Phosphatase Total Protein Albumin
[2025-05-11] MEDS: SODIUM CHLORIDE 0.9% IV 1,000 ML 75 ML IV CONT (16:51)
[2025-05-11] MEDS: EPOETIN ALFA-EPBX 20,000 UNITS/ML VIAL 20000 UNITS SUB-Q (16:57)
--- NOTE | 2025-05-11 17:10 | P.CONONC_ITS ---
Assessment and Plan Assessment and plan (1) Melena: Code(s): K92.1 - Melena Status: Acute Assessment and Plan: AVMs (2) AVM (arteriovenous malformation) of duodenum, acquired with hemorrhage: Code(s): K31.811 - Angiodysplasia of stomach and duodenum with bleeding Status: Acute Assessment and Plan: Per above. Plan Draw labs to rule out concurrent hemolysis. Octreotide possible if no hemolysis present. HPI Data of Consult Date/Time: 05/11/25 17:10 Requesting Physician: Laurent metzger Oca, MD Primary Care Provider: Presley Maza MD Consult Narrative Narrative: Shantanu Burleson is a 84 year old male with history of alcoholism, CKD stage IV, a fib on anticoagualtion, type II DM and anemia of chronic disease and who is now admitted to the hospital with SOB x 2 days, melena and anemia. 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 Despite transfusions that raised his hemoglobin 4.6 to 9.1, his current Hb is trending down at 7.4, and he has had a recurrence of dark stools. This recurrent GI bleeding, common with his advanced renal failure, suggests the likely presence of additional, more distal AVMs. Given the recent EGD and ablation of the visible AVMs, there is no indication for immediate repeat endoscopy; instead, a Video Capsule Endoscopy will be scheduled post-discharge to evaluate for distal sources... Labs: (05/02/25): H/H 6.8/20.5 (05/03/25): WBC 10.2, Hgb 8.5, Hct 25.6, Plt 328 --> H/H 7.9/23.3 (05/04/25); H/H 8.5/25.6 (05/11/25): WBC 11.4, Hgb 7.1, Hct 27.0, Plt 302 Plan: Draw labs to rule out concurrent hemolysis - haptoglobin, retic count, Antonio (D+I), ferritin. Supplement iron Recheck CBC routinely Capsule endoscopy planned after discharge Deep or intraoperative endoscopy? If patient has required 4 or more units of PRBCs over the past year as well as iv iron and continues to be anemic, he would be a candidate for Octreotide. This would start with a test dose and then Octreotide LAR once monthly would continue if patient has no adverse effects. The drug was found to decrease the RBC transfusion requirement. Review of Systems 2 Review of Systems: Poor historian Constitutional: Comments: Patient reports feeling better Respiratory: Comments: SOB still present Gastrointestinal: Comments: Black stools Neurologic: Comments: Grossly nonfocal. [facility] Past Medical History Medical History (Updated 05/10/25 @ 19:50 by Paola Adams MD) AVM (arteriovenous malformation) of duodenum, acquired with hemorrhage Acute on chronic anemia Melena Atherosclerosis of aorta Atrial fibrillation HTN (hypertension) Alcohol abuse Malignant neoplasm of prostate Dysphonia Chronic bilateral low back pain Encephalopathy Mixed hyperlipidemia NANDINI (acute kidney injury) Pneumonia Fluid overload Epistaxis r nares no bleeding site seen Gout, unspecified Gout CKD (chronic kidney disease) stage 4, GFR 15-29 ml/min Osteoarthrosis, localized, primary, involving lower leg Osteoarthrosis, localized, primary, involving hand Lumbar stenosis Anemia in chronic kidney disease Diabetes mellitus currently diet controlled, A1C 6.1% on 02/27/25 Surgical History Surgical History H/O cataract extraction History of appendectomy H/O laminectomy C3-C4 History of carpal tunnel release History of repair of rotator cuff H/O arthroscopy of knee Family History Family History Mother Hypertension, Onset Age: 72 Father Malignant neoplasm of prostate, Onset Age: 76 Social History Social History Social History: Caffeine- coffee Smoking packs per day: 1 Smoking cigarettes per day: 20.0 Years smoked: 40 Smoking pack-years: 40.00 Smoking status: Former smoker Tobacco type: cigarettes Second hand tobacco smoke exposure: No Additional smoking assessment comments: Quit 40 years ago Alcohol intake: current Drinks per week: 10 Substance use: never Substance use type: does not use Do You Feel Safe in your Home?: Yes Lack of Transportation: No Lack of Food: Never True Current Housing: I Have Housing Concerned About Future Housing: No Difficulty Paying Gas/Electric Bills: No Difficulty Paying for Meds: No Currently Unemployed: No Education: Trade/Vocational Certificate Difficulty w/ Childcare or Family Care: No Gender identity (if verbalized by the patient): Male Spiritual care concerns: No Meds Home Medications and Allergies Home Medications ?Medication ?Instructions ?Recorded ?Confirmed ?Type acetaminophen 160 mg/5 mL oral 650 mg (20.3125 mL) fee ding tube 04/24/25 05/02/25 Rx suspension (Nortemp) Q4H PRN Mild Pain (1-3) Or F ever #30 mL amlodipine 5 mg tablet (Norvasc) 5 mg feeding tube RICK LY #30 tabs 04/24/25 05/02/25 Rx apixaban 2.5 mg tablet (Eliquis) 2.5 mg feeding tube Q 12HR #60 tabs 04/24/25 05/02/25 Rx famotidine 20 mg tablet (Pepcid) 10 mg (1/2 x 20 mg) f eeding tube 04/24/25 05/02/25 Rx EVERY OTHER DAY #30 tabs febuxostat 80 mg tablet 80 mg feeding tube DAILY #90 tabs 04/24/25 05/02/25 Rx hydralazine 25 mg tablet 25 mg feeding tube Q8H #90 t abs 04/24/25 05/02/25 Rx levetiracetam 100 mg/mL oral 750 mg (7.5 mL) feeding t ube Q12HR 04/24/25 05/02/25 Rx solution #473 mL labetalol 100 mg tablet 100 mg feeding tube Q12H 02/1605/02/25 History furosemide 40 mg tablet See Rx Instructions .Route 1 07/11/24 Rx .COMPLEX #90 tabs simvastatin 40 mg tablet See Rx Instructions .Route 1 07/11/24 Rx .COMPLEX #90 tabs Allergies Allergy/AdvReac Type Severity Reaction Status Date / Time allopurinol Allergy Unknown Skin Verified 05/02/25 18:36 Reaction diclofenac Allergy Unknown Pt doesn't Verified 05/02/25 18:36 know doxycycline Allergy Unknown hands Verified 05/02/25 18:36 probenecid Allergy Unknown Skin Verified 05/02/25 18:36 Reaction Vital Signs Vital Signs - 24 hr 05/10/25 20:00 05/10/25 20:11 05/11/25 06:00 Temperature 36.2 C L 36.1 C L Pulse Rate 78 73 Respiratory Rate 17 16 Blood Pressure 159/58 H 150/57 H Pulse Oximetry 97 100 Oxygen Delivery Room Air 05/11/25 09:00 05/11/25 14:00 Temperature 36.4 C L Pulse Rate 69 Respiratory Rate 17 Blood Pressure 141/59 H Pulse Oximetry 99 Oxygen Delivery Room Air Exam 2 Const: Other: Ill appearing male HENMT: Other: Dry pharynx Eyes: Other: Anicteric sclerae Resp: Other: Bilateral air entry Cardio: Other: RRR GI: Other: soft, NT. BS nl. Skin: Other: Dry Neuro: Other: Alert and awake. Grossly nonfocal Extrem: Other: No edema Results Labs 05/11/25 12:48 05/11/25 05:20 Labs: Short CBC 05/10/25 05/11/25 05/11/25 Range/Units 22:24 05:20 12:48 WBC 11.4 H (4.5-10.0) K/mm3 Hgb 7.2 L 7.1 L 7.3 L (14.0-18.0) g/dL Hct 22.7 L 22.0 L 22.5 L (42.0-52.0) % Plt Count 302 (150-375) k/mm3 BMP 05/11/25 05:20 Sodium 138 Potassium 3.4 Chloride 104 Carbon Dioxide 21 L BUN 135 H* Creatinine 3.23 H Glucose 192 H Calcium 9.6 Liver Function 05/11/25 Range/Units 05:20 Total Bilirubin 0.6 (0.2-1.3) mg/dL AST 135 H (17-59) U/L ALT 141 H (6-50) U/L Alkaline Phosphatase 272 H (38-126) U/L Albumin 2.9 L (3.5-5.1) g/dL
[2025-05-11] MEDS: OCTREOTIDE ACETATE 50 MCG/ML VIAL SUB-Q (18:23)
[2025-05-11 18:45] LABS: Hematocrit 21.8 % (42.0-52.0); Hemoglobin 7.1 g/dL (14.0-18.0)
[2025-05-11 18:46] LABS: Immature Reticulocyte Fraction 9.4 % (3.0-15.9); Reticulocyte Hemoglobin Conten 27.8 pg (28.2-36.6); Reticulocytes Absolute 0.03 10^6/uL (0.02-0.10)
[2025-05-11 19:03] LABS: INR 1.3; Prothrombin Time 16.0 Seconds (11.1-14.7)
[2025-05-11 19:05] LABS: Partial Thromboplastin Time 42.3 Seconds (22.3-36.8)
[2025-05-11 19:12] LABS: Iron 34 ug/dL (49-181)
[2025-05-11 19:22] LABS: Percent Iron Saturation 22 % (20-50)
--- NOTE | 2025-05-11 19:32 | P.PNGI_ITS ---
Progress Note: A&P Assessment and Plan (1) AVM (arteriovenous malformation) of duodenum, acquired with hemorrhage: Code(s): K31.811 - Angiodysplasia of stomach and duodenum with bleeding Status: Acute Assessment and Plan: As discussed previously, this patient has recurrent GI bleeding from small bowel origin, given his condition of CKD, angiodysplasias would be the most like source, also given the fact that he had 2 duodenal AVMs recently ablated. Capsule endoscopy ordered when patient is discharged, for documentation purposes and to rule out less frequent causes such as adenocarcinoma, lymphoma or ne uroendocrine neoplasms of the small intestine. In the meantime, the suggestion of SQ octreotide is valid and started. There is little experience in the literature, and the most quoted trial recommends starting with 100 mcg tiD and if effective (meaning decrease transfusion requirements) transition to long acting (Sandostatin LAR) monthly. The option of intraoperative enteroscopy is deemed highly invasive and probably not feasible in his particular case. (2) GI bleed: Qualifiers: GI bleed type/associated pathology: melena Qualified Code(s): K92.1 - Melena Code(s): K92.2 - Gastrointestinal hemorrhage, unspecified Status: Acute Assessment and Plan: - Increase Octreotide to 50 mcg tiD and if tolerated in 24 hours order 100 mcg tiD (goal) - continue monitoring H/H and order hemolysis workup as recommended by hematology Subjective Date/time seen: 05/11/25 19:32 Interval history: Pt has been having intermittent melena, alternating with dark brown stools. There is a tendency to Hb decrease. Objective Data Vital Signs Vital Signs: Vital Signs - 24 hr 05/10/25 20:00 05/10/25 20:11 05/11/25 06:00 Temperature 97.2 F L 97.0 F L Pulse Rate 78 73 Respiratory Rate 17 16 Blood Pressure 159/58 H 150/57 H Pulse Oximetry 97 100 Oxygen Delivery Room Air 05/11/25 09:00 05/11/25 14:00 Temperature 97.5 F L Pulse Rate 69 Respiratory Rate 17 Blood Pressure 141/59 H Pulse Oximetry 99 Oxygen Delivery Room Air Intake/Output Intake/Output: Intake & Output 05/08/25 05/09/25 05/10/25 05/11/25 23:59 23:59 23:59 23:59 Intake Total 0 780 1355 1591 Output Total 900 221 122 6223 Balance -793 179 7692 591 Meds/Results Medications: Active Medications Generic Name Dose Route Start Last Admin Trade Name Freq PRN Reason Stop Dose Admin Acetaminophen 650 mg 05/02/25 20:49 05/09/25 20:21 Acetaminophen Elixir 325 Mg/10.15 Ml Udc FEED TUBE 650 mg Q4H PRN Administration Mild Pain (1-3) or Fever Amlodipine Besylate 5 mg 05/05/25 17:25 05/11/25 09:10 Amlodipine Besylate 5 Mg Tablet FEED TUBE 5 mg DAILY OLENA Administration Dextrose 12.5 gm 05/02/25 20:20 Dextrose 50% 25 Gm/50 Ml Syringe IV PUSH PRN PRN Hypoglycemia Protocol Febuxostat 40 mg 05/06/25 09:00 05/11/25 09:12 Febuxostat 40 Mg Tablet FEED TUBE 40 mg DAILY OLENA Administration Furosemide 20 mg 05/11/25 09:00 05/11/25 09:11 Furosemide 20 Mg Tablet FEED TUBE 20 mg On Hold: 05/11/25 15:43 DAILY OLENA Administration Glucagon 1 mg 05/02/25 20:20 Glucagon For Inj 1 Mg Vial IM PRN PRN Hypoglycemia Protocol Glucose 15 gm 05/02/25 20:20 Glucose Oral Gel 15 Gm Of Glucse In 37.5 Gm Tube PO PRN PRN Hypoglycemia Protocol Dextrose 1,000 mls @ 100 mls/hr 05/02/25 20:20 Dextrose 5% 1,000 Ml IVPB PRN PRN Hypoglycemia Protocol Sodium Chloride 1,000 mls @ 75 mls/hr 05/11/25 15:45 05/11/25 16:51 Normal Saline Iv IV CONT 75 mls/hr .[id number] OLENA Administration Insulin Aspart 2 - 5 units 05/03/25 00:00 05/11/25 18:23 Insulin Aspart (*Bkc) 100 Units/Ml SUB-Q Not Given Q6HR OLENA Protocol Levetiracetam 750 mg 05/02/25 21:00 05/11/25 09:10 Levetiracetam Oral Pallavi 500 Mg/5 Ml Udc FEED TUBE 750 mg Q12HR OLENA Administration Lidocaine 1 patch 05/08/25 09:00 05/11/25 09:11 Lidocaine 5% Patch TRANSDERM 1 patch DAILY OLENA Administration Octreotide Acetate 50 mcg 05/11/25 18:00 05/11/25 18:23 Octreotide Acetate 50 Mcg/Ml Vial SUB-Q 50 mcg Q12H OLENA Administration Pantoprazole Sodium 40 mg 05/10/25 21:00 05/11/25 09:12 Pantoprazole Sodium Iv 40 Mg Vial IV PUSH 40 mg Q12HR OLENA Administration Simvastatin 40 mg 05/03/25 09:00 05/11/25 09:11 Simvastatin 20 Mg Tablet FEED TUBE 40 mg DAILY OLENA Administration Radiology Results: ITS Impressions Chest CT 05/03/25 09:17 IMPRESSION: 1. Diffuse lung disease, likely a combination of moderate pulmonary edema and pneumonia. 2. Moderate-sized pleural effusions. 3. Ascites. Renal Ultrasound 05/03/25 11:21 IMPRESSION: 1. No hydronephrosis. Modified Barium Swallow 05/04/25 13:53 IMPRESSION: Pharyngeal dysphagia with laryngeal penetration without aspiration. Please correlate with speech pathologist findings and specific feeding recommendations. Knee X-Ray 05/08/25 14:06 IMPRESSION: 1. Tricompartmental degenerative changes; calcification in the menisci could be associated with pseudogout or CPPD. 2. Extensive vascular calcification may be associated with peripheral artery disease. Chest X-Ray 05/09/25 13:06 IMPRESSION: 1. Interstitial pulmonary edema with pleural effusions. 2. Superimposed airspace disease not excluded. Labs Labs: Laboratory Results - last 24 hr 05/10/25 05/10/25 05/11/25 22:24 23:24 04:35 WBC RBC Hgb 7.2 L Hct 22.7 L MCV MCH MCHC RDW Plt Count MPV Immature Gran % (Auto) Neut % (Auto) Lymph % (Auto) [place] % (Auto) Eos % (Auto) Baso % (Auto) Lymph # (Auto) [place] # (Auto) Eos # (Auto) Baso # (Auto) Abs Immat Gran (auto) Absolute Neuts (auto) Absolute Nucleated RBC Nucleated RBC % Absolute Retic Percent Retic Immature Retic Fraction Retic Hgb Content PT INR APTT Sodium Potassium Chloride Carbon Dioxide Anion Gap BUN Creatinine Estim Creat Clear Calc Estimated GFR Glucose POC Capillary Glucose 197 H 191 H Calcium Magnesium Iron TIBC % Saturation Total Bilirubin AST ALT Alkaline Phosphatase Total Protein Albumin 05/11/25 05/11/25 05/11/25 05:20 11:56 12:48 WBC 11.4 H RBC 2.26 L Hgb 7.1 L 7.3 L Hct 22.0 L 22.5 L MCV 97.3 MCH 31.4 MCHC 32.3 RDW 14.0 Plt Count 302 MPV 10.4 Immature Gran % (Auto) 0.6 H Neut % (Auto) 72.8 Lymph % (Auto) 8.4 L [place] % (Auto) 11.5 H Eos % (Auto) 6.1 H Baso % (Auto) 0.6 Lymph # (Auto) 0.95 [place] # (Auto) 1.3 H Eos # (Auto) 0.7 H Baso # (Auto) 0.1 Abs Immat Gran (auto) 0.07 H Absolute Neuts (auto) 8.3 H Absolute Nucleated RBC 0.000 Nucleated RBC % 0.0 Absolute Retic Percent Retic Immature Retic Fraction Retic Hgb Content PT INR APTT Sodium 138 Potassium 3.4 Chloride 104 Carbon Dioxide 21 L Anion Gap 13 H BUN 135 H* Creatinine 3.23 H Estim Creat Clear Calc 12 Estimated GFR 18 L Glucose 192 H POC Capillary Glucose 207 H Calcium 9.6 Magnesium 2.6 H Iron TIBC % Saturation Total Bilirubin 0.6 AST 135 H ALT 141 H Alkaline Phosphatase 272 H Total Protein 6.5 Albumin 2.9 L 05/11/25 05/11/25 18:06 18:38 WBC RBC Hgb 7.1 L Hct 21.8 L MCV MCH MCHC RDW Plt Count MPV Immature Gran % (Auto) Neut % (Auto) Lymph % (Auto) [place] % (Auto) Eos % (Auto) Baso % (Auto) Lymph # (Auto) [place] # (Auto) Eos # (Auto) Baso # (Auto) Abs Immat Gran (auto) Absolute Neuts (auto) Absolute Nucleated RBC Nucleated RBC % Absolute Retic 0.03 Percent Retic 1.43 Immature Retic Fraction 9.4 Retic Hgb Content 27.8 L PT 16.0 H INR 1.3 APTT 42.3 H Sodium Potassium Chloride Carbon Dioxide Anion Gap BUN Creatinine Estim Creat Clear Calc Estimated GFR Glucose POC Capillary Glucose 198 H Calcium Magnesium Iron 34 L TIBC 157 L % Saturation 22 Total Bilirubin AST ALT Alkaline Phosphatase Total Protein Albumin
[2025-05-11 20:53] VITALS: BP 141/53; PULSE 72; RESP 17; TEMP 36.1; O2SAT 99
[2025-05-12] MEDS: SODIUM CHLORIDE 0.9% IV 1,000 ML 75 ML IV CONT ×2 (05:40→20:39)
[2025-05-12 06:00] VITALS: BP 156/62; PULSE 78; RESP 17; O2SAT 97
[2025-05-12 06:43] LABS: Hematocrit 21.4 % (42.0-52.0); Hemoglobin 7.0 g/dL (14.0-18.0); Immature Granulocyte Percent A 0.6 % (0-0.5); Lymphocytes Absolute Auto 0.84 K/mm3 (0.9-3.2); Mean Corpuscular HGB Conc 32.7 g/dl (32-36); Mean Corpuscular Hemoglobin 31.3 pg (26-34); Mean Corpuscular Volume 95.5 fl (80-100); Nucleated Red Blood Cells Absolute Auto 0.000 K/mm3 (0.0-0.012); Nucleated Red Blood Cells Perc 0.0 % (0.0-0.2); Platelet Count Result 292 k/mm3 (150-375); Red Blood Count 2.24 M/mm3 (4.6-6.20); White Blood Count 12.8 K/mm3 (4.5-10.0)
[2025-05-12 07:27] LABS: Alanine Aminotransferase 103 U/L (6-50); Albumin Level 2.9 g/dL (3.5-5.1); Alkaline Phosphatase 249 U/L (38-126); Anion Gap 11 mmol/L (4-12); Aspartate Amino Transferase 74 U/L (17-59); Bilirubin,Total 0.5 mg/dL (0.2-1.3); Calcium 9.2 mg/dL (8.4-10.2); Carbon Dioxide 23 mmol/L (22-30); Chloride 103 mmol/L (98-107); Estimated CRCL calculation 13 ml/min; Estimated Glomerular Filt Rate 19; Glucose 179 mg/dL (65-110); Magnesium 2.4 mg/dL (1.6-2.3); Potassium 3.4 mmol/L (3.4-5.0); Sodium 137 mmol/L (137-145); Total Protein 6.4 g/dL (6.3-8.2)
[2025-05-12 07:33] LABS: Blood Urea Nitrogen 131 mg/dL (9-20)
--- NOTE | 2025-05-12 08:17 | WPDONCPN ---
Progress Note: A&P Assessment and Plan (1) AVM (arteriovenous malformation) of duodenum, acquired with hemorrhage: Code(s): K31.811 - Angiodysplasia of stomach and duodenum with bleeding Status: Acute Assessment and Plan: Per GI: As discussed previously, this patient has recurrent GI bleeding from small bowel origin, given his condition of CKD, angiodysplasias would be the most like source, also given the fact that he had 2 duodenal AVMs recently ablated. Capsule endoscopy ordered when patient is discharged, for documentation purposes and to rule out less frequent causes such as adenocarcinoma, lymphoma or neuroendocrine neoplasms of the small intestine. In the meantime, the suggestion of SQ octreotide is valid and started. There is little experience in the literature, and the most quoted trial recommends starting with 100 mcg tiD and if effective (meaning decrease transfusion requirements) transition to long acting (Sandostatin LAR) monthly. The option of intraoperative enteroscopy is deemed highly invasive and probably not feasible in his particular case. (2) GI bleed: Qualifiers: GI bleed type/associated pathology: melena Qualified Code(s): K92.1 - Melena Code(s): K92.2 - Gastrointestinal hemorrhage, unspecified Status: Acute Assessment and Plan: - Increase Octreotide to 50 mcg tiD and if tolerated in 24 hours order 100 mcg tiD (goal) - continue monitoring H/H and order hemolysis workup as recommended by hematology If Octreotide 100 mcg tid tolerated; after two weeks okay to change to Octreotide LAR monthly. Plan [place] schedule f/u with Dr. Arguello 2-3 weeks post discharge. Thank you. Subjective Date/time seen: 05/12/25 08:17 Interval history: Shantanu Burleson is a 84 year old male with history of alcoholism, CKD stage IV, a fib on anticoagualtion, type II DM and anemia of chronic disease and who is now admitted to the hospital with SOB x 2 days, melena and anemia. 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 Despite transfusions that raised his hemoglobin 4.6 to 9.1, his current Hb is trending down at 7.4, and he has had a recurrence of dark stools. This recurrent GI bleeding, common with his advanced renal failure, suggests the likely presence of additional, more distal AVMs. Given the recent EGD and ablation of the visible AVMs, there is no indication for immediate repeat endoscopy; instead, a Video Capsule Endoscopy will be scheduled post-discharge to evaluate for distal sources... Labs: (05/02/25): H/H 6.8/20.5 (05/03/25): WBC 10.2, Hgb 8.5, Hct 25.6, Plt 328 --> H/H 7.9/23.3 (05/04/25); H/H 8.5/25.6 (05/11/25): WBC 11.4, Hgb 7.1, Hct 27.0, Plt 302, iron 34, TIBC 157 05/12/25: Patient doing about the same. Neck brace on. present today. Patient was begun on Octreotide 50 mcg sc tid yesterday and if tolerated after 24 hours, will increase to 100 mcg sc tid. If this is tolerated, patient would be candidate for Octreotide LAR once monthly through the office. He mentions no adverse events.No fevers or chills. Denies SOB and CP. No rash. Labs: (05/12/25): WBC 12.8, Hgb 7.0, Hct 21.4, Plt 292, BUN 131, crea 3.18, Total bili 0.5. Plan: Labs pending - haptoglobin, retic count, Antonio (D+I), ferritin. Supplement iron Recheck CBC routinely Capsule endoscopy planned after discharge Continue Octreotide 100 mcg sc tid for 2 weeks. If tolerated, change to Octreotide LAR. Please schedule f/u with Dr. Arguello 2-3 weeks post discharge. Thank you. Review of Systems Review of Systems As above Exam HENMT: Other: Wearing neck brace Eyes: Other: anicteric sclerae Resp: Other: Bilateral air entry GI: Other: Soft, NT. Neuro: Other: Alert and awake Objective Data Vital Signs Vital Signs: Vital Signs - 24 hr 05/11/25 09:00 05/11/25 14:00 05/11/25 20:00 Temperature 36.4 C L Pulse Rate 69 Respiratory Rate 17 Blood Pressure 141/59 H Pulse Oximetry 99 Oxygen Delivery Room Air Room Air 05/11/25 20:53 05/12/25 06:00 Temperature 36.1 C L Pulse Rate 72 78 Respiratory Rate 17 17 Blood Pressure 141/53 H 156/62 H Pulse Oximetry 99 97 Oxygen Delivery Intake/Output Intake/Output: Intake & Output 05/09/25 05/10/25 05/11/25 05/12/25 23:59 23:59 23:59 23:59 Intake Total 780 1355 1591 1701.3 Output Total 526 948 2946 Balance 130 3532 632 4543.3 Meds/Results Medications: Active Medications Generic Name Dose Route Start Last Admin Trade Name Freq PRN Reason Stop Dose Admin Acetaminophen 650 mg 05/02/25 20:49 05/09/25 20:21 Acetaminophen Elixir 325 Mg/10.15 Ml Udc FEED TUBE 650 mg Q4H PRN Administration Mild Pain (1-3) or Fever Amlodipine Besylate 5 mg 05/05/25 17:25 05/11/25 09:10 Amlodipine Besylate 5 Mg Tablet FEED TUBE 5 mg DAILY OLENA Administration Dextrose 12.5 gm 05/02/25 20:20 Dextrose 50% 25 Gm/50 Ml Syringe IV PUSH PRN PRN Hypoglycemia Protocol Febuxostat 40 mg 05/06/25 09:00 05/11/25 09:12 Febuxostat 40 Mg Tablet FEED TUBE 40 mg DAILY OLENA Administration Furosemide 20 mg 05/11/25 09:00 05/11/25 09:11 Furosemide 20 Mg Tablet FEED TUBE 20 mg On Hold: 05/11/25 15:43 DAILY OLENA Administration Glucagon 1 mg 05/02/25 20:20 Glucagon For Inj 1 Mg Vial IM PRN PRN Hypoglycemia Protocol Glucose 15 gm 05/02/25 20:20 Glucose Oral Gel 15 Gm Of Glucse In 37.5 Gm Tube PO PRN PRN Hypoglycemia Protocol Dextrose 1,000 mls @ 100 mls/hr 05/02/25 20:20 Dextrose 5% 1,000 Ml IVPB PRN PRN Hypoglycemia Protocol Sodium Chloride 1,000 mls @ 75 mls/hr 05/11/25 15:45 05/12/25 05:40 Normal Saline Iv IV CONT 75 mls/hr .[id number] OLENA Administration Insulin Aspart 2 - 5 units 05/03/25 00:00 05/12/25 06:42 Insulin Aspart (*Bkc) 100 Units/Ml SUB-Q Not Given Q6HR OLENA Protocol Levetiracetam 750 mg 05/02/25 21:00 05/11/25 22:02 Levetiracetam Oral Pallavi 500 Mg/5 Ml Udc FEED TUBE 750 mg Q12HR OLENA Administration Lidocaine 1 patch 05/08/25 09:00 05/11/25 09:11 Lidocaine 5% Patch TRANSDERM 1 patch DAILY OLENA Administration Octreotide Acetate 50 mcg 05/12/25 09:00 Octreotide Acetate 50 Mcg/Ml Vial SUB-Q TID OLENA Simvastatin 40 mg 05/03/25 09:00 05/11/25 09:11 Simvastatin 20 Mg Tablet FEED TUBE 40 mg DAILY OLENA Administration Radiology Results: ITS Impressions Chest CT 05/03/25 09:17 IMPRESSION: 1. Diffuse lung disease, likely a combination of moderate pulmonary edema and pneumonia. 2. Moderate-sized pleural effusions. 3. Ascites. Renal Ultrasound 05/03/25 11:21 IMPRESSION: 1. No hydronephrosis. Modified Barium Swallow 05/04/25 13:53 IMPRESSION: Pharyngeal dysphagia with laryngeal penetration without aspiration. Please correlate with speech pathologist findings and specific feeding recommendations. Knee X-Ray 05/08/25 14:06 IMPRESSION: 1. Tricompartmental degenerative changes; calcification in the menisci could be associated with pseudogout or CPPD. 2. Extensive vascular calcification may be associated with peripheral artery disease. Chest X-Ray 05/09/25 13:06 IMPRESSION: 1. Interstitial pulmonary edema with pleural effusions. 2. Superimposed airspace disease not excluded. Labs Labs: Laboratory Results - last 24 hr 05/11/25 05/11/25 05/11/25 11:56 12:48 18:06 WBC RBC Hgb 7.3 L Hct 22.5 L MCV MCH MCHC RDW Plt Count MPV Immature Gran % (Auto) Neut % (Auto) Lymph % (Auto) [place] % (Auto) Eos % (Auto) Baso % (Auto) Lymph # (Auto) [place] # (Auto) Eos # (Auto) Baso # (Auto) Abs Immat Gran (auto) Absolute Neuts (auto) Absolute Nucleated RBC Nucleated RBC % Absolute Retic Percent Retic Immature Retic Fraction Retic Hgb Content PT INR APTT Sodium Potassium Chloride Carbon Dioxide Anion Gap BUN Creatinine Estim Creat Clear Calc Estimated GFR Glucose POC Capillary Glucose 207 H 198 H Calcium Magnesium Iron TIBC % Saturation Total Bilirubin AST ALT Alkaline Phosphatase Total Protein Albumin NINI, IgG Interpret NINI, Poly Interpret NINI, Complement Interp Indirect Antiglob Test 05/11/25 05/12/25 05/12/25 18:38 05:37 06:04 WBC 12.8 H RBC 2.24 L Hgb 7.1 L 7.0 L Hct 21.8 L 21.4 L MCV 95.5 MCH 31.3 MCHC 32.7 RDW 13.8 Plt Count 292 MPV 10.5 H Immature Gran % (Auto) 0.6 H Neut % (Auto) 76.3 H Lymph % (Auto) 6.5 L [place] % (Auto) 9.7 H Eos % (Auto) 6.5 H Baso % (Auto) 0.4 Lymph # (Auto) 0.84 L [place] # (Auto) 1.2 H Eos # (Auto) 0.8 H Baso # (Auto) 0.1 Abs Immat Gran (auto) 0.08 H Absolute Neuts (auto) 9.8 H Absolute Nucleated RBC 0.000 Nucleated RBC % 0.0 Absolute Retic 0.03 Percent Retic 1.43 Immature Retic Fraction 9.4 Retic Hgb Content 27.8 L PT 16.0 H INR 1.3 APTT 42.3 H Sodium 137 Potassium 3.4 Chloride 103 Carbon Dioxide 23 Anion Gap 11 BUN 131 H* Creatinine 3.18 H Estim Creat Clear Calc 13 Estimated GFR 19 L Glucose 179 H POC Capillary Glucose 190 H Calcium 9.2 Magnesium 2.4 H Iron 34 L TIBC 157 L % Saturation 22 Total Bilirubin 0.5 AST 74 H ALT 103 H Alkaline Phosphatase 249 H Total Protein 6.4 Albumin 2.9 L NINI, IgG Interpret 2+ NINI, Poly Interpret 1+ NINI, Complement Interp Negative Indirect Antiglob Test Negative
[2025-05-12] MEDS: levETIRAcetam ORAL SOL 500 MG/5 ML UDC 750 MG FEED TUBE ×2 (08:56→20:39)
[2025-05-12] MEDS: FEBUXOSTAT 40 MG TABLET FEED TUBE (08:57)
[2025-05-12] MEDS: LIDOCAINE 5% PATCH 1 PATCH TRANSDERM (08:57)
[2025-05-12] MEDS: SIMVASTATIN 20 MG TABLET 40 MG FEED TUBE (08:57)
--- NOTE | 2025-05-12 09:13 | PCNFU ---
Nutrition Follow-Up Complete: Inadequate energy intake related to NPO status as evidenced by current diet orders Meet estimated needs - Goal is met with tube feeding Goal: Pt current nutrition is Nepro @ 40 ml/h with 100 ml flushes q 4 hours. Nutrition recommendation: Continue Nepro @ 40 ml/h with flushes 100 ml q 4 hours. NPO. Agree with current orders. Last recorded weight is 59.3 kg. Bowel Motility: +1 BM 05/10 Labs Reviewed: Hgb 7.0, Hct 21.4, Alb 2.9, BUN 131, Cre 3.18, Glu 179, Mag 2.4, PO4 4.7 Meds Noted: Lasix, Keppra Skin: No pressure injuries Additional Notes: Nepro @ 40 ml/h provides 1584 kcal, 71 g protein, 639 ml free water. 100 ml flushes q 4 h. 1239 ml total free water. Tolerating well. Meeting estimated needs @ 27 kcal/kg, 1.2 g protein/kg. Adequate for needs. Agree with current orders. Monitor tube feeding, tolerance, wt, labs. Follow up every sunday and sunday
--- NOTE | 2025-05-12 09:50 | P.PNNP_ITS ---
Progress Note: A&P Assessment and Plan (1) Acute kidney injury: Code(s): N17.9 - Acute kidney failure, unspecified Status: Acute Assessment and Plan: * fluctuating in the last 24 - 48 hours * suspect due a few issues: * prerenal factors * severe anemia * pneumonia * other * evaluation to date noted: * renal u/s without obstruction * urine electrolytes are prerenal * UA without evidence of infection * proteinuria noted * CPK low * still making good urine output * possible overdiuresis(?) * however recent CXR with evidence of congestion/fluid * azotemia/elevated BUN noted -- likely due to #3; something else contributing(?) * holding diuretics at this time * s/p trial of IVFs * follow trend of repeat labs and UOP (2) Stage 4 chronic kidney disease: Code(s): N18.4 - Chronic kidney disease, stage 4 (severe) Status: Chronic Assessment and Plan: * fluctuates to extremes at baseline... * runs anywhere from 2.5 - 3.5mg/dL * in the last 3 - 4 months, creatinine has been running around 2.5 - 3.0mg/dl * due to hypertension, diabetes, vascular disease, and age related change along chronic diuretic therapy to maintain volume status (3) Azotemia: Code(s): R79.89 - Other specified abnormal findings of blood chemistry Status: Acute Assessment and Plan: * worsening in the last few days] * suspect due to ongoing slow GI bleeding * another potential etiology(?) (4) GI bleed: Qualifiers: GI bleed type/associated pathology: melena Qualified Code(s): K92.1 - Melena Code(s): K92.2 - Gastrointestinal hemorrhage, unspecified Status: Acute Assessment and Plan: * as noted by anemia and black tarry stools on admission * s/p 3 units of PRBC transfusion * s/p EGD on 05/04 with findings noted: * 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 with small amount of hematin in the lumen * s/p cauterization with APC * GI recommendations noted * holding Eliquis * on PPI * suspect more AVMs present causing slow oozing of blood - noted plans for outpatient capsule endoscopy * suspected etiology of elevated BUN/azotemia * follow trend of H/H (5) Anemia: Code(s): D64.9 - Anemia, unspecified Status: Acute Assessment and Plan: * partly related to NANDINI, CKD, and complicated by #4 * follow trend of H/H * started THEO/Epogen * Hematology recommendations noted: * started on octreotide (6) Left knee pain: Code(s): M25.562 - Pain in left knee Status: Acute Assessment and Plan: * slow improvement * X-rays noted * pain control as tolerated (7) Shortness of breath: Code(s): R06.02 - Shortness of breath Status: Acute Assessment and Plan: * clinically seems better if not resolved * CT imaging noted: * moderate pulmonary edema * pneumonia * pleural effusions * ascites * viral testing for influenza/RSV/COVID negative * remains on oral diuretic therapy * off oxygen at this time * follow respiratory status (8) Pneumonia: Code(s): J18.9 - Pneumonia, unspecified organism Status: Acute Assessment and Plan: * as noted by admission imaging * follow culture data (negative to date) * completed course of antibiotics (9) Atrial fibrillation: Qualifiers: Atrial fibrillation type: unspecified chronic Qualified Code(s): I48.20 - Chronic atrial fibrillation, unspecified Code(s): I48.91 - Unspecified atrial fibrillation Status: Chronic Assessment and Plan: * rate control strategy * Eliquis on hold (see #4) (10) Hyponatremia: Code(s): E87.1 - Hypo-osmolality and hyponatremia Status: Acute Assessment and Plan: * improving if not resolved * likely related to NANDINI on CKD * follow trend (11) Dysphagia: Qualifiers: Dysphagia type: unspecified Qualified Code(s): R13.10 - Dysphagia, unspecified Code(s): R13.10 - Dysphagia, unspecified Status: Chronic Assessment and Plan: * s/p PEG tube placement * speech therapy recommendations and MBS noted * on tube feedings (12) Hypertension: Code(s): I10 - Essential (primary) hypertension Status: Chronic Assessment and Plan: * reasonable control * follow trend of hemodynamics (13) Diabetes mellitus: Qualifiers: Chronic kidney disease stage: stage 4 (severe) Diabetes mellitus complication detail: with chronic kidney disease Diabetes mellitus complication status: with kidney complications Diabetes mellitus snf insulin use: w ithout snf use Diabetes mellitus type: type 2 Qualified Code(s): E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; N18.4 - Chronic kidney disease, stage 4 (severe) Code(s): E11.9 - Type 2 diabetes mellitus without complications Status: Chronic Assessment and Plan: * follow accu-cheks * glycemic control per hospitalist (14) Type II fracture of odontoid process: Qualifiers: Encounter type: subsequent encounter Fracture alignment: nondisplaced Fracture healing: with routine healing Fracture type: closed Qualified Code(s): S12.112D - Nondisplaced Type II dens fracture, subsequent encounter for fracture with routine healing Code(s): S12.110A - Anterior displaced Type II dens fracture, initial encounter for closed fracture Status: Chronic Assessment and Plan: * as noted on previous imaging * conservative therapy per Neurosurgery * [place] collar in place * ongoing PT/OT as tolerated Will continue to follow. L Subjective Date/time seen: 05/12/25 09:50 Interval history: Follow-up for acute kidney injury/acute renal failure on chronic kidney disease. Renal function/creatinine relatively stable but BUN still remains elevated; started on octreotide yesterday given concerns for ongoing melena and appears to be tolerating; no other acute complaints voiced; diuretics currently on hold and s/p trial of IVFs. Exam 2 Narrative: General: elderly but WD/WN male in NAD; [place] collar in place Heart: normal S1 and S2; no rub Lungs: clear anteriorly Abdomen: soft, nontender, nondistended, positive bowel sounds Extremities: no cyanosis or clubbing; no edema Skin: warm and dry Objective Data Vital Signs Vital Signs: Vital Signs Temp Pulse Resp BP Pulse Ox O2 Del Method 05/12/25 06:00 78 17 156/62 H 97 05/11/25 20:53 97.0 F L 72 17 141/53 H 99 05/11/25 20:00 Room Air 05/11/25 14:00 97.5 F L 69 17 141/59 H 99 Intake/Output Intake/Output: Intake & Output 05/09/25 05/10/25 05/11/25 05/12/25 23:59 23:59 23:59 23:59 Intake Total 780 1355 1591 1701.3 Output Total 942 806 8662 Balance 130 0585 597 6037.3 Meds/Results Medications: Active Medications Generic Name Dose Route Start Last Admin Trade Name Freq PRN Reason Stop Dose Admin Acetaminophen 650 mg 05/02/25 20:49 05/09/25 20:21 Acetaminophen Elixir 325 Mg/10.15 Ml Udc FEED TUBE 650 mg Q4H PRN Administration Mild Pain (1-3) or Fever Amlodipine Besylate 5 mg 05/05/25 17:25 05/12/25 08:57 Amlodipine Besylate 5 Mg Tablet FEED TUBE 5 mg DAILY OLENA Administration Dextrose 12.5 gm 05/02/25 20:20 Dextrose 50% 25 Gm/50 Ml Syringe IV PUSH PRN PRN Hypoglycemia Protocol Febuxostat 40 mg 05/06/25 09:00 05/12/25 08:57 Febuxostat 40 Mg Tablet FEED TUBE 40 mg DAILY OLENA Administration Furosemide 20 mg 05/11/25 09:00 05/11/25 09:11 Furosemide 20 Mg Tablet FEED TUBE 20 mg On Hold: 05/11/25 15:43 DAILY OLENA Administration Glucagon 1 mg 05/02/25 20:20 Glucagon For Inj 1 Mg Vial IM PRN PRN Hypoglycemia Protocol Glucose 15 gm 05/02/25 20:20 Glucose Oral Gel 15 Gm Of Glucse In 37.5 Gm Tube PO PRN PRN Hypoglycemia Protocol Dextrose 1,000 mls @ 100 mls/hr 05/02/25 20:20 Dextrose 5% 1,000 Ml IVPB PRN PRN Hypoglycemia Protocol Sodium Chloride 1,000 mls @ 75 mls/hr 05/11/25 15:45 05/12/25 05:40 Normal Saline Iv IV CONT 75 mls/hr .[id number] OLENA Administration Insulin Aspart 2 - 5 units 05/03/25 00:00 05/12/25 11:42 Insulin Aspart (*Bkc) 100 Units/Ml SUB-Q Not Given Q6HR OLENA Protocol Levetiracetam 750 mg 05/02/25 21:00 05/12/25 08:56 Levetiracetam Oral Pallavi 500 Mg/5 Ml Udc FEED TUBE 750 mg Q12HR OLENA Administration Lidocaine 1 patch 05/08/25 09:00 05/12/25 08:57 Lidocaine 5% Patch TRANSDERM 1 patch DAILY OLENA Administration Octreotide Acetate 50 mcg 05/12/25 14:00 Octreotide Acetate 50 Mcg/Ml Vial SUB-Q Q8HR OLENA Simvastatin 40 mg 05/03/25 09:00 05/12/25 08:57 Simvastatin 20 Mg Tablet FEED TUBE 40 mg DAILY OLENA Administration Radiology Results: ITS Impressions Chest CT 05/03/25 09:17 IMPRESSION: 1. Diffuse lung disease, likely a combination of moderate pulmonary edema and pneumonia. 2. Moderate-sized pleural effusions. 3. Ascites. Renal Ultrasound 05/03/25 11:21 IMPRESSION: 1. No hydronephrosis. Modified Barium Swallow 05/04/25 13:53 IMPRESSION: Pharyngeal dysphagia with laryngeal penetration without aspiration. Please correlate with speech pathologist findings and specific feeding recommendations. Knee X-Ray 05/08/25 14:06 IMPRESSION: 1. Tricompartmental degenerative changes; calcification in the menisci could be associated with pseudogout or CPPD. 2. Extensive vascular calcification may be associated with peripheral artery disease. Chest X-Ray 05/09/25 13:06 IMPRESSION: 1. Interstitial pulmonary edema with pleural effusions. 2. Superimposed airspace disease not excluded. Labs Labs: Laboratory Tests 05/12/25 05:37 05/12/25 05:37 Calcium 9.2 Magnesium 2.4 H Total Bilirubin 0.5 AST 74 H ALT 103 H Alkaline Phosphatase 249 H Total Protein 6.4 Albumin 2.9 L Microbiology 05/08/25 15:20 Blood Blood Culture - Preliminary 05/08/25 15:31 Blood Blood Culture - Preliminary
--- NOTE | 2025-05-12 13:01 | PM.IMPN ---
Progress Note: A&P Assessment and Plan (1) Atrial fibrillation: Qualifiers: Atrial fibrillation type: unspecified chronic Qualified Code(s): I48.20 - Chronic atrial fibrillation, unspecified Code(s): I48.91 - Unspecified atrial fibrillation Status: Chronic (2) Alcohol abuse: Code(s): F10.10 - Alcohol abuse, uncomplicated Status: Acute (3) Acute kidney injury superimposed on CKD: Code(s): N17.9 - Acute kidney failure, unspecified; N18.9 - Chronic kidney disease, unspecified Status: Acute (4) Anemia: Code(s): D64.9 - Anemia, unspecified Status: Acute (5) Shortness of breath: Code(s): R06.02 - Shortness of breath Status: Acute Plan patient with dark tarry seen by GI suspect most likely due to AVM, and his hh now stable, will continue to monitor. Recommending feeding via PEG, patient has not had any seizures while in the hospital Patient white counts trending up, has difficulty with swallowing, x-ray today concerning for pnuemonia, patient is treated with Augmentin, currently NPO, will switch with Zosyn, will monitor, and plan. his is present gave updates. 84 y/o M with PMH of alcohol use disorder, hypertension, prostate cancer, hyperlipidemia, gout, CKD stage IV, seizures, dysphagia S/P peg placement, atrial fibrillation on anticoagulation, anemia of chronic disease, and type 2 diabetes presents here with anemia and bradycardia, melena, shortness of breath x2 days. The patient presents here from [facility] via EMS on 05/02 for further evaluation of low hemoglobin and bradycardia. Patient currently at [facility] after a recent admission at [facility] from 04/12/25 to 04/24/25. Seen at that time for altered mental status/new onset seizure disorder. Seizure suspected to be related to alcohol use or withdrawal, started on Keppra 750 mg twice daily. Patient additionally sustained a type 2 odontoid fracture for which he saw neuro surgery and was placed in an [place] collar, follow-up with their service in 6 weeks and discharged to [facility] for PT/OT. Patient also failed MBS on 04/17 for which a PEG tube was placed on 04/20 and he was started on tube feeds, strict NPO, and to continue speech therapy at [facility]. Patient also developed new AFib during this admission for which he was restarted on labetalol for concurrent hypertension and he was started on anticoagulation with Eliquis. Additionally treated for CAP for which he did not require supplemental oxygen. Has since been at [facility] and has had a remarkable recovery up until 05/02/2025 when his Hgb was found to be 5.2, verified via repeat (4.8). Patient also noted to be bradycardic at 54. Per the patient's , he has been experiencing dark tarry stools for the past 4 days. Initial VS at presentation: 97.9? F, HR 54, R 19, 111/54, and 100% on RA. ED workup showed: WBC 10.5, hemoglobin 4.6 (previously 7.5 on 04/25), INR 1.6, sodium 131, creatinine 3.57 and GFR 17 (previously 2.87 and GFR 21 on 04/25), glucose 142, albumin 2.9. Shortness of breath -reported of shortness of breath transiently on 05/03/2025. Chest CT demonstrated diffuse lung disease likely a combination of moderate pulmonary edema and pneumonia, moderate-size pleural effusions, ascites -patient did received 3 units PRBC. Quad viral screen negative. Respiratory pathogen panel pending. Mycoplasma IgM negative. -required O2 transiently. Has been breathing well since on room air. Continue RECORDAK OPERATOR Lasix 40 mg via feeding tube daily. Lasix currently on hold due to increased BUN Melena, acute anemia on chronic anemia -GI consulted. Status post 3 units PRBC. 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 Lesion was cauterized with APC. GI recommended restarting tube feeding, holding Eliquis for 7 days status post EGD. Discontinue Protonix. Hemoglobin has been stable. Patient is trending down. With no signs of bleeding. Will continue to monitor 05/10/2025 started having dark stool. GI reconsulted. Added on PPI Plans for outpatient capsule endoscopy for suspected more AVMs. Transfuse if hemoglobin less than 7 octreotide for AVMs discussed. Started on octreotide renally dosed Dysphagia status post PEG placement -speech therapy consulted, modified barium swallow completed on 05/04/2025 after EGD, demonstrates pharyngeal dysphagia with laryngeal penetration without aspiration. Feeding tubes restarted, 1 on 1 oral feeding per speech therapy with continued evaluations and treatment. NANDINI and CKD -recent baseline around 3.0. Presents to serum creatinine 3.49, no improvement after 3 unit PRBC and 1 L of lactated Ringer's -nephrology consultation. Elevated BUN possibly due to GI bleed. Appreciate recommendations. Hamilton catheter removed. -continue intake/output monitoring and daily weights. Hypokalemia: 05/05/2025, replace and monitor Hypertension -at goal. Initially holding amlodipine and hydralazine due to GI bleed. -05/05/2025: Blood pressure is elevated, restart daily amlodipine. History of alcohol use disorder, seizure disorder -continue RECORDAK OPERATOR Keppra 750 mg p.o. b.i.d. Atrial fibrillation on anticoagulation, bradycardia -currently in sinus bradycardia. Hold RECORDAK OPERATOR labetalol -continue telemetry Eliquis on hold due to GI bleed [id number] diabetes mellitus -Accu-Cheks q.6 hours with low-dose insulin sliding scale and hypoglycemia protocol Type 2 fracture of odontoid process -continue [place] collar -continue PT/OT Leukocytosis -mild, continue to up trend. Afebrile. Patient appears nontoxic, no evidence of active infection will get blood culture x2 Which is pending.UA was 05/07/25. Chest x-ray with CHF and superimposed probable pneumonia. Multiple bowel movement charted. C diff came back negative. Leukocytosis improved down and continues to improve Hypothermia -on admission, received heating blanket/Alma Hugger, could have been due to anemia. Resolved. Left knee pain x-ray with no fracture however does have tricompartmental degenerative changes, calcification of the menisci which could be associated with pseudo gout or CPPD. Extensive vascular calcification associated with peripheral artery disease. Will continue therapy lidocaine patch added. If not able to bear weight may need to do CT/MRI to further evaluate Dysphagia: Speech therapy, thickened liquids, pureed diet with 1 on 1 feeding. Tube feeds resume. Continue dietitian and speech therapy DVT prophylaxis: Hold RECORDAK OPERATOR Eliquis, SCDs with ongoing bleeding likely hold Eliquis. Received 3 units PRBC in 1 L lactated Ringer's on admission. Saline lock IV Peripheral IV, PEG tube, [place] catheter removed DNR Stable on medical floor. Subjective Date/time seen: 05/12/25 13:01 Interval history: No overnight events. Patient denies any complaints. Work with therapy. Denies any chest pain or shortness of breath. Labs reviewed Review of Systems Review of Systems: All systems reviewed & are unremarkable except as noted in HPI and below (Subjective) Exam Narrative: GENERAL: The patient is thin built, not in acute distress cervical collar in place HEENT: Nonicteric sclerae, PERRLA, EOMI. Oropharynx clear. Moist mucous membranes. Conjunctivae appear well perfused. CHEST: Chest wall is nontender. HEART: Regular rate and rhythm without murmur, rubs, or gallops LUNGS: Clear to auscultation bilaterally. no respiratory distress ABDOMEN: Soft, positive bowel sounds, non-tender, no organomegaly. G-tube in-situ SKIN: No rash, no excessive bruising, petechiae, or purpura. NEUROLOGIC: Cranial nerves II-XII intact, alert and oriented x 3, no gross motor deficits EXTREMITIES: no edema, cyanosis or clubbing Objective Data Vital Signs Vital Signs: Vital Signs - 24 hr 05/11/25 14:00 05/11/25 20:00 05/11/25 20:53 Temperature 97.5 F L 97.0 F L Pulse Rate 69 72 Respiratory Rate 17 17 Blood Pressure 141/59 H 141/53 H Pulse Oximetry 99 99 Oxygen Delivery Room Air 05/12/25 06:00 Temperature Pulse Rate 78 Respiratory Rate 17 Blood Pressure 156/62 H Pulse Oximetry 97 Oxygen Delivery Intake/Output Intake/Output: Intake & Output 05/09/25 05/10/25 05/11/25 05/12/25 23:59 23:59 23:59 23:59 Intake Total 780 1355 1591 1701.3 Output Total 903 996 4299 Balance 130 9822 422 8345.3 Meds/Results Medications: Active Medications Generic Name Dose Route Start Last Admin Trade Name Freq PRN Reason Stop Dose Admin Acetaminophen 650 mg 05/02/25 20:49 05/09/25 20:21 Acetaminophen Elixir 325 Mg/10.15 Ml Udc FEED TUBE 650 mg Q4H PRN Administration Mild Pain (1-3) or Fever Amlodipine Besylate 5 mg 05/05/25 17:25 05/12/25 08:57 Amlodipine Besylate 5 Mg Tablet FEED TUBE 5 mg DAILY OLENA Administration Dextrose 12.5 gm 05/02/25 20:20 Dextrose 50% 25 Gm/50 Ml Syringe IV PUSH PRN PRN Hypoglycemia Protocol Epoetin Donte-epbx 10,000 units 05/12/25 12:10 Epoetin Donte-Epbx 10,000 Units/Ml Vial SUB-Q TUTHSA@09 OLENA Febuxostat 40 mg 05/06/25 09:00 05/12/25 08:57 Febuxostat 40 Mg Tablet FEED TUBE 40 mg DAILY OLENA Administration Furosemide 20 mg 05/11/25 09:00 05/11/25 09:11 Furosemide 20 Mg Tablet FEED TUBE 20 mg On Hold: 05/11/25 15:43 DAILY OLENA Administration Glucagon 1 mg 05/02/25 20:20 Glucagon For Inj 1 Mg Vial IM PRN PRN Hypoglycemia Protocol Glucose 15 gm 05/02/25 20:20 Glucose Oral Gel 15 Gm Of Glucse In 37.5 Gm Tube PO PRN PRN Hypoglycemia Protocol Dextrose 1,000 mls @ 100 mls/hr 05/02/25 20:20 Dextrose 5% 1,000 Ml IVPB PRN PRN Hypoglycemia Protocol Sodium Chloride 1,000 mls @ 75 mls/hr 05/11/25 15:45 05/12/25 05:40 Normal Saline Iv IV CONT 75 mls/hr .[id number] OLENA Administration Insulin Aspart 2 - 5 units 05/03/25 00:00 05/12/25 11:42 Insulin Aspart (*Bkc) 100 Units/Ml SUB-Q Not Given Q6HR OLENA Protocol Levetiracetam 750 mg 05/02/25 21:00 05/12/25 08:56 Levetiracetam Oral Pallavi 500 Mg/5 Ml Udc FEED TUBE 750 mg Q12HR OLENA Administration Lidocaine 1 patch 05/08/25 09:00 05/12/25 08:57 Lidocaine 5% Patch TRANSDERM 1 patch DAILY OLENA Administration Octreotide Acetate 50 mcg 05/12/25 14:00 Octreotide Acetate 50 Mcg/Ml Vial SUB-Q Q8HR OLENA Simvastatin 40 mg 05/03/25 09:00 05/12/25 08:57 Simvastatin 20 Mg Tablet FEED TUBE 40 mg DAILY OLENA Administration Radiology Results: ITS Impressions Chest CT 05/03/25 09:17 IMPRESSION: 1. Diffuse lung disease, likely a combination of moderate pulmonary edema and pneumonia. 2. Moderate-sized pleural effusions. 3. Ascites. Renal Ultrasound 05/03/25 11:21 IMPRESSION: 1. No hydronephrosis. Modified Barium Swallow 05/04/25 13:53 IMPRESSION: Pharyngeal dysphagia with laryngeal penetration without aspiration. Please correlate with speech pathologist findings and specific feeding recommendations. Knee X-Ray 05/08/25 14:06 IMPRESSION: 1. Tricompartmental degenerative changes; calcification in the menisci could be associated with pseudogout or CPPD. 2. Extensive vascular calcification may be associated with peripheral artery disease. Chest X-Ray 05/09/25 13:06 IMPRESSION: 1. Interstitial pulmonary edema with pleural effusions. 2. Superimposed airspace disease not excluded. Labs Labs: Laboratory Results - last 24 hr 05/11/25 05/11/25 05/11/25 12:48 18:06 18:38 WBC RBC Hgb 7.3 L 7.1 L Hct 22.5 L 21.8 L MCV MCH MCHC RDW Plt Count MPV Immature Gran % (Auto) Neut % (Auto) Lymph % (Auto) Murray % (Auto) Eos % (Auto) Baso % (Auto) Lymph # (Auto) Murray # (Auto) Eos # (Auto) Baso # (Auto) Abs Immat Gran (auto) Absolute Neuts (auto) Absolute Nucleated RBC Nucleated RBC % Absolute Retic 0.03 Percent Retic 1.43 Immature Retic Fraction 9.4 Retic Hgb Content 27.8 L Haptoglobin 258 PT 16.0 H INR 1.3 APTT 42.3 H Sodium Potassium Chloride Carbon Dioxide Anion Gap BUN Creatinine Estim Creat Clear Calc Estimated GFR Glucose POC Capillary Glucose 198 H Calcium Magnesium Iron 34 L TIBC 157 L % Saturation 22 Total Bilirubin AST ALT Alkaline Phosphatase Total Protein Albumin NINI, IgG Interpret 2+ NINI, Poly Interpret 1+ NINI, Complement Interp Negative Indirect Antiglob Test Negative 05/12/25 05/12/25 05/12/25 05:37 06:04 11:35 WBC 12.8 H RBC 2.24 L Hgb 7.0 L Hct 21.4 L MCV 95.5 MCH 31.3 MCHC 32.7 RDW 13.8 Plt Count 292 MPV 10.5 H Immature Gran % (Auto) 0.6 H Neut % (Auto) 76.3 H Lymph % (Auto) 6.5 L Murray % (Auto) 9.7 H Eos % (Auto) 6.5 H Baso % (Auto) 0.4 Lymph # (Auto) 0.84 L Murray # (Auto) 1.2 H Eos # (Auto) 0.8 H Baso # (Auto) 0.1 Abs Immat Gran (auto) 0.08 H Absolute Neuts (auto) 9.8 H Absolute Nucleated RBC 0.000 Nucleated RBC % 0.0 Absolute Retic Percent Retic Immature Retic Fraction Retic Hgb Content Haptoglobin PT INR APTT Sodium 137 Potassium 3.4 Chloride 103 Carbon Dioxide 23 Anion Gap 11 BUN 131 H* Creatinine 3.18 H Estim Creat Clear Calc 13 Estimated GFR 19 L Glucose 179 H POC Capillary Glucose 190 H 192 H Calcium 9.2 Magnesium 2.4 H Iron TIBC % Saturation Total Bilirubin 0.5 AST 74 H ALT 103 H Alkaline Phosphatase 249 H Total Protein 6.4 Albumin 2.9 L NINI, IgG Interpret NINI, Poly Interpret NINI, Complement Interp Indirect Antiglob Test
[2025-05-12] MEDS: OCTREOTIDE ACETATE 50 MCG/ML VIAL SUB-Q ×2 (13:45→20:38)
[2025-05-12] MEDS: EPOETIN ALFA-EPBX 10,000 UNITS/ML VIAL 10000 UNITS SUB-Q (13:45)
[2025-05-12 14:00] VITALS: BP 127/53; PULSE 76; RESP 14; TEMP 36.3; O2SAT 99
[2025-05-12] MEDS: INSULIN ASPART (*BKC) 100 UNITS/ML SUB-Q (17:17)
--- NOTE | 2025-05-12 18:03 | P.PNGI_ITS ---
Progress Note: A&P Assessment and Plan (1) GI bleed: Qualifiers: GI bleed type/associated pathology: melena Qualified Code(s): K92.1 - Melena Code(s): K92.2 - Gastrointestinal hemorrhage, unspecified Status: Acute Assessment and Plan: Patient started octreotide yesterday, dose increased to 50 mcg every 8 hours. Hemoglobin has stabilized at a level of 7 today. Hematology suggestions appreciated. Will continue octreotide and watch hemoglobin trend. We might consider further increase of dose. Subjective Date/time seen: 05/12/25 18:03 Objective Data Vital Signs Vital Signs: Vital Signs - 24 hr 05/11/25 20:00 05/11/25 20:53 05/12/25 06:00 Temperature 97.0 F L Pulse Rate 72 78 Respiratory Rate 17 17 Blood Pressure 141/53 H 156/62 H Pulse Oximetry 99 97 Oxygen Delivery Room Air 05/12/25 08:00 Temperature Pulse Rate Respiratory Rate Blood Pressure Pulse Oximetry Oxygen Delivery Room Air Intake/Output Intake/Output: Intake & Output 05/09/25 05/10/25 05/11/25 05/12/25 23:59 23:59 23:59 23:59 Intake Total 780 1355 1591 1701.3 Output Total 533 391 0809 Balance 130 8119 356 5367.3 Meds/Results Medications: Active Medications Generic Name Dose Route Start Last Admin Trade Name Freq PRN Reason Stop Dose Admin Acetaminophen 650 mg 05/02/25 20:49 05/09/25 20:21 Acetaminophen Elixir 325 Mg/10.15 Ml Udc FEED TUBE 650 mg Q4H PRN Administration Mild Pain (1-3) or Fever Amlodipine Besylate 5 mg 05/05/25 17:25 05/12/25 08:57 Amlodipine Besylate 5 Mg Tablet FEED TUBE 5 mg DAILY OLENA Administration Dextrose 12.5 gm 05/02/25 20:20 Dextrose 50% 25 Gm/50 Ml Syringe IV PUSH PRN PRN Hypoglycemia Protocol Epoetin Donte-epbx 10,000 units 05/12/25 12:10 05/12/25 13:45 Epoetin Donte-Epbx 10,000 Units/Ml Vial SUB-Q 10,000 units TUTHSA@09 OLENA Administration Febuxostat 40 mg 05/06/25 09:00 05/12/25 08:57 Febuxostat 40 Mg Tablet FEED TUBE 40 mg DAILY OLENA Administration Furosemide 20 mg 05/11/25 09:00 05/11/25 09:11 Furosemide 20 Mg Tablet FEED TUBE 20 mg On Hold: 05/11/25 15:43 DAILY OLENA Administration Glucagon 1 mg 05/02/25 20:20 Glucagon For Inj 1 Mg Vial IM PRN PRN Hypoglycemia Protocol Glucose 15 gm 05/02/25 20:20 Glucose Oral Gel 15 Gm Of Glucse In 37.5 Gm Tube PO PRN PRN Hypoglycemia Protocol Dextrose 1,000 mls @ 100 mls/hr 05/02/25 20:20 Dextrose 5% 1,000 Ml IVPB PRN PRN Hypoglycemia Protocol Sodium Chloride 1,000 mls @ 75 mls/hr 05/11/25 15:45 05/12/25 05:40 Normal Saline Iv IV CONT 75 mls/hr .[id number] OLENA Administration Insulin Aspart 2 - 5 units 05/03/25 00:00 05/12/25 17:17 Insulin Aspart (*Bkc) 100 Units/Ml SUB-Q 2 units Q6HR OLENA Administration Protocol Levetiracetam 750 mg 05/02/25 21:00 05/12/25 08:56 Levetiracetam Oral Pallavi 500 Mg/5 Ml Udc FEED TUBE 750 mg Q12HR OLENA Administration Lidocaine 1 patch 05/08/25 09:00 05/12/25 08:57 Lidocaine 5% Patch TRANSDERM 1 patch DAILY OLENA Administration Octreotide Acetate 50 mcg 05/12/25 14:00 05/12/25 13:45 Octreotide Acetate 50 Mcg/Ml Vial SUB-Q 50 mcg Q8HR OLENA Administration Simvastatin 40 mg 05/03/25 09:00 05/12/25 08:57 Simvastatin 20 Mg Tablet FEED TUBE 40 mg DAILY OLENA Administration Radiology Results: ITS Impressions Chest CT 05/03/25 09:17 IMPRESSION: 1. Diffuse lung disease, likely a combination of moderate pulmonary edema and pneumonia. 2. Moderate-sized pleural effusions. 3. Ascites. Renal Ultrasound 05/03/25 11:21 IMPRESSION: 1. No hydronephrosis. Modified Barium Swallow 05/04/25 13:53 IMPRESSION: Pharyngeal dysphagia with laryngeal penetration without aspiration. Please correlate with speech pathologist findings and specific feeding recommendations. Knee X-Ray 05/08/25 14:06 IMPRESSION: 1. Tricompartmental degenerative changes; calcification in the menisci could be associated with pseudogout or CPPD. 2. Extensive vascular calcification may be associated with peripheral artery disease. Chest X-Ray 05/09/25 13:06 IMPRESSION: 1. Interstitial pulmonary edema with pleural effusions. 2. Superimposed airspace disease not excluded. Labs Labs: Laboratory Results - last 24 hr 05/09/25 05/11/25 05/11/25 05:59 18:06 18:38 WBC RBC Hgb 7.1 L Hct 21.8 L MCV MCH MCHC RDW Plt Count MPV Immature Gran % (Auto) Neut % (Auto) Lymph % (Auto) [place] % (Auto) Eos % (Auto) Baso % (Auto) Lymph # (Auto) [place] # (Auto) Eos # (Auto) Baso # (Auto) Abs Immat Gran (auto) Absolute Neuts (auto) Absolute Nucleated RBC Nucleated RBC % Absolute Retic 0.03 Percent Retic 1.43 Immature Retic Fraction 9.4 Retic Hgb Content 27.8 L Haptoglobin 258 PT 16.0 H INR 1.3 APTT 42.3 H Sodium Potassium Chloride Carbon Dioxide Anion Gap BUN Creatinine Estim Creat Clear Calc Estimated GFR Glucose POC Capillary Glucose 198 H Calcium Magnesium Iron 34 L TIBC 157 L % Saturation 22 Total Bilirubin AST ALT Alkaline Phosphatase Total Protein Albumin Levetiracetam 78.2 H NINI, IgG Interpret 2+ NINI, Poly Interpret 1+ NINI, Complement Interp Negative Indirect Antiglob Test Negative 05/12/25 05/12/25 05/12/25 05:37 06:04 11:35 WBC 12.8 H RBC 2.24 L Hgb 7.0 L Hct 21.4 L MCV 95.5 MCH 31.3 MCHC 32.7 RDW 13.8 Plt Count 292 MPV 10.5 H Immature Gran % (Auto) 0.6 H Neut % (Auto) 76.3 H Lymph % (Auto) 6.5 L [place] % (Auto) 9.7 H Eos % (Auto) 6.5 H Baso % (Auto) 0.4 Lymph # (Auto) 0.84 L [place] # (Auto) 1.2 H Eos # (Auto) 0.8 H Baso # (Auto) 0.1 Abs Immat Gran (auto) 0.08 H Absolute Neuts (auto) 9.8 H Absolute Nucleated RBC 0.000 Nucleated RBC % 0.0 Absolute Retic Percent Retic Immature Retic Fraction Retic Hgb Content Haptoglobin PT INR APTT Sodium 137 Potassium 3.4 Chloride 103 Carbon Dioxide 23 Anion Gap 11 BUN 131 H* Creatinine 3.18 H Estim Creat Clear Calc 13 Estimated GFR 19 L Glucose 179 H POC Capillary Glucose 190 H 192 H Calcium 9.2 Magnesium 2.4 H Iron TIBC % Saturation Total Bilirubin 0.5 AST 74 H ALT 103 H Alkaline Phosphatase 249 H Total Protein 6.4 Albumin 2.9 L Levetiracetam NINI, IgG Interpret NINI, Poly Interpret NINI, Complement Interp Indirect Antiglob Test 05/12/25 16:32 WBC RBC Hgb Hct MCV MCH MCHC RDW Plt Count MPV Immature Gran % (Auto) Neut % (Auto) Lymph % (Auto) [place] % (Auto) Eos % (Auto) Baso % (Auto) Lymph # (Auto) [place] # (Auto) Eos # (Auto) Baso # (Auto) Abs Immat Gran (auto) Absolute Neuts (auto) Absolute Nucleated RBC Nucleated RBC % Absolute Retic Percent Retic Immature Retic Fraction Retic Hgb Content Haptoglobin PT INR APTT Sodium Potassium Chloride Carbon Dioxide Anion Gap BUN Creatinine Estim Creat Clear Calc Estimated GFR Glucose POC Capillary Glucose 210 H Calcium Magnesium Iron TIBC % Saturation Total Bilirubin AST ALT Alkaline Phosphatase Total Protein Albumin Levetiracetam NINI, IgG Interpret NINI, Poly Interpret NINI, Complement Interp Indirect Antiglob Test
[2025-05-12 21:28] VITALS: BP 127/53; PULSE 73; RESP 16; TEMP 36.6; O2SAT 99
[2025-05-13] VITALS (13 sets, daily range): BP systolic 104–163; BP diastolic 52–88; PULSE 70–86; RESP 16–20; TEMP 36.3–37.1; O2SAT 97–100
[2025-05-13] MEDS: OCTREOTIDE ACETATE 50 MCG/ML VIAL SUB-Q (06:01)
[2025-05-13 06:38] LABS: Immature Granulocyte Percent A 0.7 % (0-0.5); Lymphocytes Absolute Auto 1.17 K/mm3 (0.9-3.2); Mean Corpuscular HGB Conc 32.2 g/dl (32-36); Mean Corpuscular Hemoglobin 31.0 pg (26-34); Mean Corpuscular Volume 96.2 fl (80-100); Nucleated Red Blood Cells Absolute Auto 0.000 K/mm3 (0.0-0.012); Nucleated Red Blood Cells Perc 0.0 % (0.0-0.2); Platelet Count Result 266 k/mm3 (150-375); Red Blood Count 2.10 M/mm3 (4.6-6.20); White Blood Count 11.9 K/mm3 (4.5-10.0)
[2025-05-13 06:48] LABS: Hematocrit 20.2 % (42.0-52.0); Hemoglobin 6.5 g/dL (14.0-18.0)
[2025-05-13 07:13] LABS: Alanine Aminotransferase 81 U/L (6-50); Albumin Level 2.7 g/dL (3.5-5.1); Alkaline Phosphatase 200 U/L (38-126); Anion Gap 10 mmol/L (4-12); Aspartate Amino Transferase 60 U/L (17-59); Bilirubin,Total 0.3 mg/dL (0.2-1.3); Calcium 8.5 mg/dL (8.4-10.2); Carbon Dioxide 20 mmol/L (22-30); Chloride 105 mmol/L (98-107); Estimated CRCL calculation 14 ml/min; Estimated Glomerular Filt Rate 21; Glucose 176 mg/dL (65-110); Magnesium 2.2 mg/dL (1.6-2.3); Potassium 3.3 mmol/L (3.4-5.0); Sodium 135 mmol/L (137-145); Total Protein 6.1 g/dL (6.3-8.2)
[2025-05-13 07:14] LABS: Blood Urea Nitrogen 124 mg/dL (9-20)
--- NOTE | 2025-05-13 08:08 | WPDONCPN ---
Subjective Date/time seen: 05/13/25 08:08 Interval history: Interval history: 05/11/25: Shantanu Burleson is a 84 year old male with history of alcoholism, CKD stage IV, a fib on anticoagualtion, type II DM and anemia of chronic disease and who is now admitted to the hospital with SOB x 2 days, melena and anemia. 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 Despite transfusions that raised his hemoglobin 4.6 to 9.1, his current Hb is trending down at 7.4, and he has had a recurrence of dark stools. This recurrent GI bleeding, common with his advanced renal failure, suggests the likely presence of additional, more distal AVMs. Given the recent EGD and ablation of the visible AVMs, there is no indication for immediate repeat endoscopy; instead, a Video Capsule Endoscopy will be scheduled post-discharge to evaluate for distal sources... Labs: (05/02/25): H/H 6.8/20.5 (05/03/25): WBC 10.2, Hgb 8.5, Hct 25.6, Plt 328 --> H/H 7.9/23.3 (05/04/25); H/H 8.5/25.6 (05/11/25): WBC 11.4, Hgb 7.1, Hct 27.0, Plt 302, iron 34, TIBC 157, retic 1.43. Antonio (D+I) neg. 05/12/25: Patient doing about the same. Neck brace on. present today. Patient was begun on Octreotide 50 mcg sc tid yesterday and if tolerated after 24 hours, will increase to 100 mcg sc tid. If this is tolerated, patient would be candidate for Octreotide LAR once monthly through the office. He mentions no adverse events.No fevers or chills. Denies SOB and CP. No rash. Labs: (05/12/25): WBC 12.8, Hgb 7.0, Hct 21.4, Plt 292, BUN 131, crea 3.18, Total bili 0.5. 05/13/25: Patient feeling about the same. No SOB or CP. Patient being fed through PEG tube. Continue to wear neck brace for C2 fracture; reports that her needs to wear it for 6 weeks or until C2 fracture heals. Hgb dropped to 6.5 today. Currently receiving Octreotide 50 mcg tid; dosing per GI. Labs: (05/13/25): WBC 11.9, Hgb 6.5, Hct 20.2, Plt 266, BUN 124, crea 2.93, AST 135, ALT 141, AP 272, Alb 2.9 Plan: Hgb dropping. Octreotide currently at 50 mcg tid; recommend increase dose to target Octreotide 100 mcg tid - will leave up to GI/nephrology Plan to ultimately change to Octreotide LAR monthly. Given patient's poor kidney function, he may benefit from procrit if epo level < 500. Will draw lab. Labs pending - haptoglobin, ferritin, erythropoetin Recheck CBC. If repeat Hgb is <7, recommend transfusion. Supplement iron Capsule endoscopy planned after discharge Will plan f/u with Dr. Arguello 2-3 weeks post discharge. Objective Data Vital Signs Vital Signs: Vital Signs - 24 hr 05/12/25 14:00 05/12/25 20:00 05/12/25 21:28 Temperature 36.3 C L 36.6 C Pulse Rate 76 73 Respiratory Rate 14 16 Blood Pressure 127/53 L 127/53 L Pulse Oximetry 99 99 Oxygen Delivery Room Air 05/13/25 04:27 Temperature 36.4 C Pulse Rate 86 Respiratory Rate 18 Blood Pressure 163/60 H Pulse Oximetry 97 Oxygen Delivery Intake/Output Intake/Output: Intake & Output 05/10/25 05/11/25 05/12/25 05/13/25 23:59 23:59 23:59 23:59 Intake Total 1355 1591 2701.3 1363 Output Total 200 1000 900 450 Balance 2198 908 8187.3 913 Meds/Results Medications: Active Medications Generic Name Dose Route Start Last Admin Trade Name Freq PRN Reason Stop Dose Admin Acetaminophen 650 mg 05/02/25 20:49 05/09/25 20:21 Acetaminophen Elixir 325 Mg/10.15 Ml Udc FEED TUBE 650 mg Q4H PRN Administration Mild Pain (1-3) or Fever Amlodipine Besylate 5 mg 05/05/25 17:25 05/12/25 08:57 Amlodipine Besylate 5 Mg Tablet FEED TUBE 5 mg DAILY OLENA Administration Dextrose 12.5 gm 05/02/25 20:20 Dextrose 50% 25 Gm/50 Ml Syringe IV PUSH PRN PRN Hypoglycemia Protocol Epoetin Donte-epbx 10,000 units 05/12/25 12:10 05/12/25 13:45 Epoetin Donte-Epbx 10,000 Units/Ml Vial SUB-Q 10,000 units TUTHSA@09 OLENA Administration Febuxostat 40 mg 05/06/25 09:00 05/12/25 08:57 Febuxostat 40 Mg Tablet FEED TUBE 40 mg DAILY OLENA Administration Furosemide 20 mg 05/11/25 09:00 05/11/25 09:11 Furosemide 20 Mg Tablet FEED TUBE 20 mg On Hold: 05/11/25 15:43 DAILY OLENA Administration Glucagon 1 mg 05/02/25 20:20 Glucagon For Inj 1 Mg Vial IM PRN PRN Hypoglycemia Protocol Glucose 15 gm 05/02/25 20:20 Glucose Oral Gel 15 Gm Of Glucse In 37.5 Gm Tube PO PRN PRN Hypoglycemia Protocol Dextrose 1,000 mls @ 100 mls/hr 05/02/25 20:20 Dextrose 5% 1,000 Ml IVPB PRN PRN Hypoglycemia Protocol Sodium Chloride 1,000 mls @ 75 mls/hr 05/11/25 15:45 05/12/25 20:39 Normal Saline Iv IV CONT 75 mls/hr .[id number] OLENA Administration Insulin Aspart 2 - 5 units 05/03/25 00:00 05/13/25 05:58 Insulin Aspart (*Bkc) 100 Units/Ml SUB-Q Not Given Q6HR OLENA Protocol Levetiracetam 750 mg 05/02/25 21:00 05/12/25 20:39 Levetiracetam Oral Pallavi 500 Mg/5 Ml Udc FEED TUBE 750 mg Q12HR OLENA Administration Lidocaine 1 patch 05/08/25 09:00 05/12/25 08:57 Lidocaine 5% Patch TRANSDERM 1 patch DAILY OLENA Administration Octreotide Acetate 50 mcg 05/12/25 14:00 05/13/25 06:01 Octreotide Acetate 50 Mcg/Ml Vial SUB-Q 50 mcg Q8HR OLENA Administration Simvastatin 40 mg 05/03/25 09:00 05/12/25 08:57 Simvastatin 20 Mg Tablet FEED TUBE 40 mg DAILY OLENA Administration Radiology Results: ITS Impressions Chest CT 05/03/25 09:17 IMPRESSION: 1. Diffuse lung disease, likely a combination of moderate pulmonary edema and pneumonia. 2. Moderate-sized pleural effusions. 3. Ascites. Renal Ultrasound 05/03/25 11:21 IMPRESSION: 1. No hydronephrosis. Modified Barium Swallow 05/04/25 13:53 IMPRESSION: Pharyngeal dysphagia with laryngeal penetration without aspiration. Please correlate with speech pathologist findings and specific feeding recommendations. Knee X-Ray 05/08/25 14:06 IMPRESSION: 1. Tricompartmental degenerative changes; calcification in the menisci could be associated with pseudogout or CPPD. 2. Extensive vascular calcification may be associated with peripheral artery disease. Chest X-Ray 05/09/25 13:06 IMPRESSION: 1. Interstitial pulmonary edema with pleural effusions. 2. Superimposed airspace disease not excluded. Labs Labs: Laboratory Results - last 24 hr 05/09/25 05/11/25 05/12/25 05:59 18:38 11:35 WBC RBC Hgb Hct MCV MCH MCHC RDW Plt Count MPV Immature Gran % (Auto) Neut % (Auto) Lymph % (Auto) [place] % (Auto) Eos % (Auto) Baso % (Auto) Lymph # (Auto) [place] # (Auto) Eos # (Auto) Baso # (Auto) Abs Immat Gran (auto) Absolute Neuts (auto) Absolute Nucleated RBC Nucleated RBC % Haptoglobin 258 Sodium Potassium Chloride Carbon Dioxide Anion Gap BUN Creatinine Estim Creat Clear Calc Estimated GFR Glucose POC Capillary Glucose 192 H Calcium Magnesium Total Bilirubin AST ALT Alkaline Phosphatase Total Protein Albumin Levetiracetam 78.2 H 05/12/25 05/13/25 05/13/25 16:32 00:16 05:56 WBC RBC Hgb Hct MCV MCH MCHC RDW Plt Count MPV Immature Gran % (Auto) Neut % (Auto) Lymph % (Auto) [place] % (Auto) Eos % (Auto) Baso % (Auto) Lymph # (Auto) [place] # (Auto) Eos # (Auto) Baso # (Auto) Abs Immat Gran (auto) Absolute Neuts (auto) Absolute Nucleated RBC Nucleated RBC % Haptoglobin Sodium Potassium Chloride Carbon Dioxide Anion Gap BUN Creatinine Estim Creat Clear Calc Estimated GFR Glucose POC Capillary Glucose 210 H 158 H 187 H Calcium Magnesium Total Bilirubin AST ALT Alkaline Phosphatase Total Protein Albumin Levetiracetam 11/19/25 06:14 WBC 11.9 H RBC 2.10 L Hgb 6.5 L* Hct 20.2 L* MCV 96.2 MCH 31.0 MCHC 32.2 RDW 13.6 Plt Count 266 MPV 10.0 Immature Gran % (Auto) 0.7 H Neut % (Auto) 70.7 Lymph % (Auto) 9.8 L [place] % (Auto) 11.0 H Eos % (Auto) 7.3 H Baso % (Auto) 0.5 Lymph # (Auto) 1.17 [place] # (Auto) 1.3 H Eos # (Auto) 0.9 H Baso # (Auto) 0.1 Abs Immat Gran (auto) 0.08 H Absolute Neuts (auto) 8.5 H Absolute Nucleated RBC 0.000 Nucleated RBC % 0.0 Haptoglobin Sodium 135 L Potassium 3.3 L Chloride 105 Carbon Dioxide 20 L Anion Gap 10 BUN 124 H* Creatinine 2.93 H Estim Creat Clear Calc 14 Estimated GFR 21 L Glucose 176 H POC Capillary Glucose Calcium 8.5 Magnesium 2.2 Total Bilirubin 0.3 AST 60 H ALT 81 H Alkaline Phosphatase 200 H Total Protein 6.1 L Albumin 2.7 L Levetiracetam
[2025-05-13 08:46] LABS: Mean Corpuscular HGB Conc 33.2 g/dl (32-36); Mean Corpuscular Hemoglobin 31.6 pg (26-34); Mean Corpuscular Volume 95.1 fl (80-100); Platelet Count Result 249 k/mm3 (150-375); Red Blood Count 2.06 M/mm3 (4.6-6.20); White Blood Count 12.4 K/mm3 (4.5-10.0)
[2025-05-13 08:50] LABS: Hematocrit 19.6 % (42.0-52.0); Hemoglobin 6.5 g/dL (14.0-18.0)
--- NOTE | 2025-05-13 09:44 | P.PNIM_ITS ---
Progress Note: A&P Assessment and Plan (1) Atrial fibrillation: Qualifiers: Atrial fibrillation type: unspecified chronic Qualified Code(s): I48.20 - Chronic atrial fibrillation, unspecified Code(s): I48.91 - Unspecified atrial fibrillation Status: Chronic (2) Alcohol abuse: Code(s): F10.10 - Alcohol abuse, uncomplicated Status: Acute (3) Acute kidney injury superimposed on CKD: Code(s): N17.9 - Acute kidney failure, unspecified; N18.9 - Chronic kidney disease, unspecified Status: Acute (4) Anemia: Code(s): D64.9 - Anemia, unspecified Status: Acute (5) Shortness of breath: Code(s): R06.02 - Shortness of breath Status: Acute Plan patient with dark tarry seen by GI suspect most likely due to AVM, and his hh now stable, will continue to monitor. Recommending feeding via PEG, patient has not had any seizures while in the hospital Patient white counts trending up, has difficulty with swallowing, x-ray today concerning for pnuemonia, patient is treated with Augmentin, currently NPO, will switch with Zosyn, will monitor, and plan. his is present gave updates. 84 y/o M with PMH of alcohol use disorder, hypertension, prostate cancer, hyperlipidemia, gout, CKD stage IV, seizures, dysphagia S/P peg placement, atrial fibrillation on anticoagulation, anemia of chronic disease, and type 2 diabetes presents here with anemia and bradycardia, melena, shortness of breath x2 days. The patient presents here from [facility] via EMS on 05/02 for further evaluation of low hemoglobin and bradycardia. Patient currently at [facility] after a recent admission at [facility] from 04/12/25 to 04/24/25. Seen at that time for altered mental status/new onset seizure disorder. Seizure suspected to be related to alcohol use or withdrawal, started on Keppra 750 mg twice daily. Patient additionally sustained a type 2 odontoid fracture for which he saw neuro surgery and was placed in an Thomaston collar, follow-up with their service in 6 weeks and discharged to [facility] for PT/OT. Patient also failed MBS on 04/17 for which a PEG tube was placed on 04/20 and he was started on tube feeds, strict NPO, and to continue speech therapy at [facility]. Patient also devel oped new AFib during this admission for which he was restarted on labetalol for concurrent hypertension and he was started on anticoagulation with Eliquis. Additionally treated for CAP for which he did not require supplemental oxygen. Has since been at [facility] and has had a remarkable recovery up until 05/02/2025 when his Hgb was found to be 5.2, verified via repeat (4.8). Patient also noted to be bradycardic at 54. Per the patient's , he has been experiencing dark tarry stools for the past 4 days. Initial VS at presentation: 97.9? F, HR 54, R 19, 111/54, and 100% on RA. ED workup showed: WBC 10.5, hemoglobin 4.6 (previously 7.5 on 04/25), INR 1.6, sodium 131, creatinine 3.57 and GFR 17 (previously 2.87 and GFR 21 on 04/25), glucose 142, albumin 2.9. Shortness of breath -reported of shortness of breath transiently on 05/03/2025. Chest CT demonstrated diffuse lung disease likely a combination of moderate pulmonary edema and pneumonia, moderate-size pleural effusions, ascites -patient did received 3 units PRBC. Quad viral screen negative. Respiratory pathogen panel pending. Mycoplasma IgM negative. -required O2 transiently. Has been breathing well since on room air. Lasix was resumed but now currently on hold due to increased BUN Melena, acute anemia on chronic anemia -GI consulted. Status post 3 units PRBC. 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 Lesion was cauterized with APC. GI recommended restarting tube feeding, holding Eliquis for 7 days status post EGD. Discontinue Protonix. Hemoglobin has been stable. Patient is trending down. With no signs of bleeding. Will continue to monitor 05/10/2025 started having dark stool. GI reconsulted. Added on PPI Plans for outpatient capsule endoscopy for suspected more AVMs. Transfuse PRBC today for hgb 6.5 octreotide for AVMs and dose increased today Dysphagia status post PEG placement -speech therapy consulted, modified barium swallow completed on 05/04/2025 after EGD, demonstrates pharyngeal dysphagia with laryngeal penetration without aspiration. Tube feeding restarted, NPO except for 1 on 1 oral feeding per speech therapy with continued evaluations and treatment. NANDINI and CKD -recent baseline around 3.0. Presents to serum creatinine 3.49, no improvement after 3 unit PRBC and 1 L of lactated Ringer's -nephrology consultation. Elevated BUN possibly due to GI bleed. Appreciate recommendations. Hamilton catheter removed. Cr better at 2.9 -continue intake/output monitoring and daily weights. IVF fluids on hold. Hypokalemia: Replace and monitor Hypertension Initially holding amlodipine and hydralazine due to GI bleed. Blood pressure was elevated so amlodipine resumed SBP running about 150-160 range. Follow for now. History of alcohol use disorder, seizure disorder Keppra level elevated at 78. Lower Keppra to 500mg b.i.d. Neuro consult Atrial fibrillation on anticoagulation, bradycardia Currently in sinus bradycardia. 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 Accu-Cheks q.6 hours with low-dose insulin sliding scale and hypoglycemia protocol Type 2 fracture of odontoid process -continue Thomaston collar -continue PT/OT Leukocytosis Afebrile. Patient appears nontoxic, no evidence of active infection. BCx NGTD. Chest x-ray 05/09 with CHF and superimposed probable pneumonia. Multiple bowel movement charted. C diff came back negative. Leukocytosis improved down and continues to improve Hypothermia -on admission, received heating blanket/Alma Hugger, could have been due to anemia. Resolved. Left knee pain x-ray with no fracture however does have tricompartmental degenerative changes, calcification of the menisci which could be associated with pseudo gout or CPPD. Extensive vascular calcification associated with peripheral artery disease. Will continue therapy lidocaine patch added. If not able to bear weight may need to do CT/MRI to further evaluate Dysphagia: Speech therapy, thickened liquids, pureed diet with 1 on 1 feeding. Tube feeds resume. Continue dietitian and speech therapy DVT prophylaxis: Holding Eliquis, SCDs with ongoing bleeding likely hold Eliquis. Code status - DNR Subjective Date/time seen: 05/13/25 09:44 Interval history: 84yo male with alcohol use disorder, HTN, HLD, prostate cancer, gout, CKD stage IV, seizures, dysphagia S/P peg placement, atrial fibrillation on anticoagulation, anemia of chronic disease, and type 2 DM who presents here with anemia, bradycardia, melena, and shortness of breath x2 days. Assuming care. Chart reviewed. Mo neck pain. No CP or SOB. Able to stand and pivot. NPO. No recent change with his keppra dose. Has not seen neurology since having a seizure prior to original hospitaliation in March Exam Narrative: AF 97.6 163/60 86 18 97% ra Gen - thin, frail male in NARD sitting up in chair Neck - C-collar in place Chest - CTA bilaterally, nml RR CV - RRR S1/S2 Abd - soft, NT/ND, +BS, GTube site clean and dry Ext - trace LE edema. Neuro - alert and appropriate Psych - nml mood Skin - warm and dry Objective Data Vital Signs Vital Signs: Vital Signs - 24 hr 05/12/25 14:00 05/12/25 20:00 05/12/25 21:28 Temperature 97.4 F L 97.8 F Pulse Rate 76 73 Respiratory Rate 14 16 Blood Pressure 127/53 L 127/53 L Pulse Oximetry 99 99 Oxygen Delivery Room Air 05/13/25 04:27 Temperature 97.6 F Pulse Rate 86 Respiratory Rate 18 Blood Pressure 163/60 H Pulse Oximetry 97 Oxygen Delivery Intake/Output Intake/Output: Intake & Output 05/10/25 05/11/25 05/12/25 05/13/25 23:59 23:59 23:59 23:59 Intake Total 1355 1591 2701.3 1363 Output Total 200 1000 900 450 Balance 9362 890 9879.3 913 Meds/Results Medications: Active Medications Generic Name Dose Route Start Last Admin Trade Name Freq PRN Reason Stop Dose Admin Acetaminophen 650 mg 05/02/25 20:49 05/09/25 20:21 Acetaminophen Elixir 325 Mg/10.15 Ml Udc FEED TUBE 650 mg Q4H PRN Administration Mild Pain (1-3) or Fever Amlodipine Besylate 5 mg 05/05/25 17:25 05/12/25 08:57 Amlodipine Besylate 5 Mg Tablet FEED TUBE 5 mg DAILY OLENA Administration Dextrose 12.5 gm 05/02/25 20:20 Dextrose 50% 25 Gm/50 Ml Syringe IV PUSH PRN PRN Hypoglycemia Protocol Epoetin Donte-epbx 10,000 units 05/12/25 12:10 05/12/25 13:45 Epoetin Donte-Epbx 10,000 Units/Ml Vial SUB-Q 10,000 units TUTHSA@09 OLENA Administration Febuxostat 40 mg 05/06/25 09:00 05/12/25 08:57 Febuxostat 40 Mg Tablet FEED TUBE 40 mg DAILY OLENA Administration Furosemide 20 mg 05/11/25 09:00 05/11/25 09:11 Furosemide 20 Mg Tablet FEED TUBE 20 mg On Hold: 05/11/25 15:43 DAILY OLENA Administration Glucagon 1 mg 05/02/25 20:20 Glucagon For Inj 1 Mg Vial IM PRN PRN Hypoglycemia Protocol Glucose 15 gm 05/02/25 20:20 Glucose Oral Gel 15 Gm Of Glucse In 37.5 Gm Tube PO PRN PRN Hypoglycemia Protocol Dextrose 1,000 mls @ 100 mls/hr 05/02/25 20:20 Dextrose 5% 1,000 Ml IVPB PRN PRN Hypoglycemia Protocol Sodium Chloride 1,000 mls @ 75 mls/hr 05/11/25 15:45 05/12/25 20:39 Normal Saline Iv IV CONT 75 mls/hr .[id number] OLENA Administration Insulin Aspart 2 - 5 units 05/03/25 00:00 05/13/25 05:58 Insulin Aspart (*Bkc) 100 Units/Ml SUB-Q Not Given Q6HR OLENA Protocol Levetiracetam 750 mg 05/02/25 21:00 05/12/25 20:39 Levetiracetam Oral Pallavi 500 Mg/5 Ml Udc FEED TUBE 750 mg Q12HR OLENA Administration Lidocaine 1 patch 05/08/25 09:00 05/12/25 08:57 Lidocaine 5% Patch TRANSDERM 1 patch DAILY OLENA Administration Octreotide Acetate 50 mcg 05/12/25 14:00 05/13/25 06:01 Octreotide Acetate 50 Mcg/Ml Vial SUB-Q 50 mcg Q8HR OLENA Administration Simvastatin 40 mg 05/03/25 09:00 05/12/25 08:57 Simvastatin 20 Mg Tablet FEED TUBE 40 mg DAILY OLENA Administration Radiology Results: ITS Impressions Chest CT 05/03/25 09:17 IMPRESSION: 1. Diffuse lung disease, likely a combination of moderate pulmonary edema and pneumonia. 2. Moderate-sized pleural effusions. 3. Ascites. Renal Ultrasound 05/03/25 11:21 IMPRESSION: 1. No hydronephrosis. Modified Barium Swallow 05/04/25 13:53 IMPRESSION: Pharyngeal dysphagia with laryngeal penetration without aspiration. Please correlate with speech pathologist findings and specific feeding recommendations. Knee X-Ray 05/08/25 14:06 IMPRESSION: 1. Tricompartmental degenerative changes; calcification in the menisci could be associated with pseudogout or CPPD. 2. Extensive vascular calcification may be associated with peripheral artery disease. Chest X-Ray 05/09/25 13:06 IMPRESSION: 1. Interstitial pulmonary edema with pleural effusions. 2. Superimposed airspace disease not excluded. Labs Labs: Laboratory Results - last 24 hr 05/09/25 05/11/25 05/12/25 05:59 18:38 11:35 WBC RBC Hgb Hct MCV MCH MCHC RDW Plt Count MPV Immature Gran % (Auto) Neut % (Auto) Lymph % (Auto) Bradley % (Auto) Eos % (Auto) Baso % (Auto) Lymph # (Auto) Bradley # (Auto) Eos # (Auto) Baso # (Auto) Abs Immat Gran (auto) Absolute Neuts (auto) Absolute Nucleated RBC Nucleated RBC % Haptoglobin 258 Sodium Potassium Chloride Carbon Dioxide Anion Gap BUN Creatinine Estim Creat Clear Calc Estimated GFR Glucose POC Capillary Glucose 192 H Calcium Magnesium Total Bilirubin AST ALT Alkaline Phosphatase Total Protein Albumin Levetiracetam 78.2 H 05/12/25 05/13/25 05/13/25 16:32 00:16 05:56 WBC RBC Hgb Hct MCV MCH MCHC RDW Plt Count MPV Immature Gran % (Auto) Neut % (Auto) Lymph % (Auto) Bradley % (Auto) Eos % (Auto) Baso % (Auto) Lymph # (Auto) Bradley # (Auto) Eos # (Auto) Baso # (Auto) Abs Immat Gran (auto) Absolute Neuts (auto) Absolute Nucleated RBC Nucleated RBC % Haptoglobin Sodium Potassium Chloride Carbon Dioxide Anion Gap BUN Creatinine Estim Creat Clear Calc Estimated GFR Glucose POC Capillary Glucose 210 H 158 H 187 H Calcium Magnesium Total Bilirubin AST ALT Alkaline Phosphatase Total Protein Albumin Levetiracetam 05/13/25 05/13/25 06:14 08:40 WBC 11.9 H 12.4 H RBC 2.10 L 2.06 L Hgb 6.5 L* 6.5 L* Hct 20.2 L* 19.6 L* MCV 96.2 95.1 MCH 31.0 31.6 MCHC 32.2 33.2 RDW 13.6 13.6 Plt Count 266 249 MPV 10.0 9.6 Immature Gran % (Auto) 0.7 H Neut % (Auto) 70.7 Lymph % (Auto) 9.8 L Bradley % (Auto) 11.0 H Eos % (Auto) 7.3 H Baso % (Auto) 0.5 Lymph # (Auto) 1.17 Bradley # (Auto) 1.3 H Eos # (Auto) 0.9 H Baso # (Auto) 0.1 Abs Immat Gran (auto) 0.08 H Absolute Neuts (auto) 8.5 H Absolute Nucleated RBC 0.000 Nucleated RBC % 0.0 Haptoglobin Sodium 135 L Potassium 3.3 L Chloride 105 Carbon Dioxide 20 L Anion Gap 10 BUN 124 H* Creatinine 2.93 H Estim Creat Clear Calc 14 Estimated GFR 21 L Glucose 176 H POC Capillary Glucose Calcium 8.5 Magnesium 2.2 Total Bilirubin 0.3 AST 60 H ALT 81 H Alkaline Phosphatase 200 H Total Protein 6.1 L Albumin 2.7 L Levetiracetam
--- NOTE | 2025-05-13 10:30 | PC.NURSE ---
RN called hospitalist Tim to discuss patient's keppra medication. Patient is on keppra however a keppra lab was drawn on 05/09 and reported high (see LABS). RN explained patient has continued to get the keppra despite the lab keppra being high. Hospitalist Tim told RN to hold patient's morning keppra dose and he will review patient's chart.
[2025-05-13] MEDS: SIMVASTATIN 20 MG TABLET 40 MG FEED TUBE (10:33)
[2025-05-13] MEDS: LIDOCAINE 5% PATCH 1 PATCH TRANSDERM (10:33)
[2025-05-13] MEDS: FEBUXOSTAT 40 MG TABLET FEED TUBE (10:33)
[2025-05-13] MEDS: SODIUM CHLORIDE 0.9% IV 250 ML 30 ML IV CONT (10:34)
--- NOTE | 2025-05-13 13:54 | P.PNNP_ITS ---
Progress Note: A&P Assessment and Plan (1) Acute kidney injury: Code(s): N17.9 - Acute kidney failure, unspecified Status: Acute Assessment and Plan: * slow improvement * suspect due a few issues: * prerenal factors * severe anemia * pneumonia * other * evaluation to date noted: * renal u/s without obstruction * urine electrolytes are prerenal * UA without evidence of infection * proteinuria noted * CPK low * still making good urine output * possible overdiuresis(?) * however recent CXR with evidence of congestion/fluid * azotemia/elevated BUN noted -- likely due to #3; something else contributing(?) * holding diuretics at this time * s/p trial of IVFs * follow trend of repeat labs and UOP (2) Stage 4 chronic kidney disease: Code(s): N18.4 - Chronic kidney disease, stage 4 (severe) Status: Chronic Assessment and Plan: * fluctuates to extremes at baseline... * runs anywhere from 2.5 - 3.5mg/dL * in the last 3 - 4 months, creatinine has been running around 2.5 - 3.0mg/dl * due to hypertension, diabetes, vascular disease, and age related change along chronic diuretic therapy to maintain volume status (3) Azotemia: Code(s): R79.89 - Other specified abnormal findings of blood chemistry Status: Acute Assessment and Plan: * worsening in the last few days] * suspect due to ongoing slow GI bleeding * another potential etiology(?) (4) GI bleed: Qualifiers: GI bleed type/associated pathology: melena Qualified Code(s): K92.1 - Melena Code(s): K92.2 - Gastrointestinal hemorrhage, unspecified Status: Acute Assessment and Plan: * as noted by anemia and black tarry stools on admission * s/p 3 units of PRBC transfusion * s/p EGD on 05/04 with findings noted: * 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 with small amount of hematin in the lumen * s/p cauterization with APC * GI recommendations noted * holding Eliquis * on PPI * suspect more AVMs present causing slow oozing of blood - noted plans for outpatient capsule endoscopy * suspected etiology of elevated BUN/azotemia * follow trend of H/H (5) Anemia: Code(s): D64.9 - Anemia, unspecified Status: Acute Assessment and Plan: * partly related to NANDINI, CKD, and complicated by #4 * follow trend of H/H * started THEO/Epogen * Hematology recommendations noted: * on octreotide (6) Left knee pain: Code(s): M25.562 - Pain in left knee Status: Acute Assessment and Plan: * slow improvement * X-rays noted * pain control as tolerated (7) Shortness of breath: Code(s): R06.02 - Shortness of breath Status: Acute Assessment and Plan: * clinically seems better if not resolved * CT imaging noted: * moderate pulmonary edema * pneumonia * pleural effusions * ascites * viral testing for influenza/RSV/COVID negative * remains on oral diuretic therapy * off oxygen at this time * follow respiratory status (8) Pneumonia: Code(s): J18.9 - Pneumonia, unspecified organism Status: Acute Assessment and Plan: * as noted by admission imaging * follow culture data (negative to date) * completed course of antibiotics (9) Atrial fibrillation: Qualifiers: Atrial fibrillation type: unspecified chronic Qualified Code(s): I48.20 - Chronic atrial fibrillation, unspecified Code(s): I48.91 - Unspecified atrial fibrillation Status: Chronic Assessment and Plan: * rate control strategy * Eliquis on hold (see #4) (10) Hyponatremia: Code(s): E87.1 - Hypo-osmolality and hyponatremia Status: Acute Assessment and Plan: * improving if not resolved * likely related to NANDINI on CKD * follow trend (11) Dysphagia: Qualifiers: Dysphagia type: unspecified Qualified Code(s): R13.10 - Dysphagia, unspecified Code(s): R13.10 - Dysphagia, unspecified Status: Chronic Assessment and Plan: * s/p PEG tube placement * speech therapy recommendations and MBS noted * on tube feedings (12) Hypertension: Code(s): I10 - Essential (primary) hypertension Status: Chronic Assessment and Plan: * reasonable control * follow trend of hemodynamics (13) Diabetes mellitus: Qualifiers: Chronic kidney disease stage: stage 4 (severe) Diabetes mellitus complication detail: with chronic kidney disease Diabetes mellitus complication status: with kidney complications Diabetes mellitus terminologist insulin use: [facility] terminologist use Diabetes mellitus type: type 2 Qualified Code(s): E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; N18.4 - Chronic kidney disease, stage 4 (severe) Code(s): E11.9 - Type 2 diabetes mellitus without complications Status: Chronic Assessment and Plan: * follow accu-cheks * glycemic control per hospitalist (14) Type II fracture of odontoid process: Qualifiers: Encounter type: subsequent encounter Fracture alignment: nondisplaced Fracture healing: with routine healing Fracture type: closed Qualified Code(s): S12.112D - Nondisplaced Type II dens fracture, subsequent encounter for fracture with routine healing Code(s): S12.110A - Anterior displaced Type II dens fracture, initial encounter for closed fracture Status: Chronic Assessment and Plan: * as noted on previous imaging * conservative therapy per Neurosurgery * Waldron collar in place * ongoing PT/OT as tolerated Will continue to follow. L Subjective Date/time seen: 05/13/25 13:54 Interval history: Follow-up for acute kidney injury/acute renal failure on chronic kidney disease. Drop in H/H noted by AM labs -- PRBC transfusion today; renal function/creatinine relatively stable but BUN remain elevated; left knee pain is better and about to bear weight on this leg now; no apparent distress noted. Exam 2 Narrative: General: elderly but WD/WN male in NAD; Waldron collar in place Heart: normal S1 and S2; no rub Lungs: clear anteriorly Abdomen: soft, nontender, nondistended, positive bowel sounds Extremities: no cyanosis or clubbing; trace edema Skin: warm and intact Objective Data Vital Signs Vital Signs: Vital Signs Temp Pulse Resp BP Pulse Ox O2 Del Method 05/13/25 13:45 97.7 F 72 16 153/59 H 100 05/13/25 13:27 97.3 F L 70 16 147/56 H 99 05/13/25 10:33 Room Air 05/13/25 04:27 97.6 F 86 18 163/60 H 97 05/12/25 21:28 97.8 F 73 16 127/53 L 99 05/12/25 20:00 Room Air Intake/Output Intake/Output: Intake & Output 05/10/25 05/11/25 05/12/25 05/13/25 23:59 23:59 23:59 23:59 Intake Total 1355 1591 2701.3 2113 Output Total 200 9874 157 9182 Balance 1742 973 3240.3 863 Meds/Results Medications: Active Medications Generic Name Dose Route Start Last Admin Trade Name Freq PRN Reason Stop Dose Admin Acetaminophen 650 mg 05/02/25 20:49 05/09/25 20:21 Acetaminophen Elixir 325 Mg/10.15 Ml Udc FEED TUBE 650 mg Q4H PRN Administration Mild Pain (1-3) or Fever Amlodipine Besylate 5 mg 05/05/25 17:25 05/13/25 10:34 Amlodipine Besylate 5 Mg Tablet FEED TUBE 5 mg DAILY OLENA Administration Dextrose 12.5 gm 05/02/25 20:20 Dextrose 50% 25 Gm/50 Ml Syringe IV PUSH PRN PRN Hypoglycemia Protocol Epoetin Donte-epbx 10,000 units 05/12/25 12:10 05/12/25 13:45 Epoetin Donte-Epbx 10,000 Units/Ml Vial SUB-Q 10,000 units TUTHSA@09 OLENA Administration Febuxostat 40 mg 05/06/25 09:00 05/13/25 10:33 Febuxostat 40 Mg Tablet FEED TUBE 40 mg DAILY OLENA Administration Furosemide 20 mg 05/11/25 09:00 05/11/25 09:11 Furosemide 20 Mg Tablet FEED TUBE 20 mg On Hold: 05/11/25 15:43 DAILY OLENA Administration Glucagon 1 mg 05/02/25 20:20 Glucagon For Inj 1 Mg Vial IM PRN PRN Hypoglycemia Protocol Glucose 15 gm 05/02/25 20:20 Glucose Oral Gel 15 Gm Of Glucse In 37.5 Gm Tube PO PRN PRN Hypoglycemia Protocol Dextrose 1,000 mls @ 100 mls/hr 05/02/25 20:20 Dextrose 5% 1,000 Ml IVPB PRN PRN Hypoglycemia Protocol Sodium Chloride 1,000 mls @ 75 mls/hr 05/11/25 15:45 05/13/25 10:23 Normal Saline Iv IV CONT Infused On Hold: 05/13/25 09:55 .[id number] OLENA Infusion Sodium Chloride 250 mls @ 30 mls/hr 05/13/25 09:54 05/13/25 10:34 Normal Saline Iv IV CONT 05/13/25 18:13 30 mls/hr .[id number] STA Administration Insulin Aspart 2 - 5 units 05/03/25 00:00 05/13/25 13:00 Insulin Aspart (*Bkc) 100 Units/Ml SUB-Q Not Given Q6HR [facility] Protocol Levetiracetam 500 mg 05/13/25 21:00 Levetiracetam Oral Pallavi 500 Mg/5 Ml Udc PO Q12HR OLENA Lidocaine 1 patch 05/08/25 09:00 05/13/25 10:33 Lidocaine 5% Patch TRANSDERM 1 patch DAILY OLENA Administration Octreotide Acetate 100 mcg 05/13/25 22:00 Octreotide Acetate 50 Mcg/Ml Vial SUB-Q Q8HR OLENA Simvastatin 40 mg 05/03/25 09:00 05/13/25 10:33 Simvastatin 20 Mg Tablet FEED TUBE 40 mg DAILY OLENA Administration Radiology Results: ITS Impressions Chest CT 05/03/25 09:17 IMPRESSION: 1. Diffuse lung disease, likely a combination of moderate pulmonary edema and pneumonia. 2. Moderate-sized pleural effusions. 3. Ascites. Renal Ultrasound 05/03/25 11:21 IMPRESSION: 1. No hydronephrosis. Modified Barium Swallow 05/04/25 13:53 IMPRESSION: Pharyngeal dysphagia with laryngeal penetration without aspiration. Please correlate with speech pathologist findings and specific feeding recommendations. Knee X-Ray 05/08/25 14:06 IMPRESSION: 1. Tricompartmental degenerative changes; calcification in the menisci could be associated with pseudogout or CPPD. 2. Extensive vascular calcification may be associated with peripheral artery disease. Chest X-Ray 05/09/25 13:06 IMPRESSION: 1. Interstitial pulmonary edema with pleural effusions. 2. Superimposed airspace disease not excluded. Labs Labs: Laboratory Tests 05/13/25 08:40 05/13/25 06:14 Calcium 8.5 Magnesium 2.2 Erythropoietin Pending Total Bilirubin 0.3 AST 60 H ALT 81 H Alkaline Phosphatase 200 H Total Protein 6.1 L Albumin 2.7 L
--- NOTE | 2025-05-13 19:06 | P.PNGI_ITS ---
Progress Note: A&P Assessment and Plan (1) AVM (arteriovenous malformation) of duodenum, acquired with hemorrhage: Code(s): K31.811 - Angiodysplasia of stomach and duodenum with bleeding Status: Acute Assessment and Plan: The patient's occult, refractory, transfusion-dependent GI bleeding is highly suggestive of small bowel Arteriovenous Malformations . The diagnostic test of choice, capsule endoscopy, is only performed on an outpatient basis at our institution; therefore, the order is already placed for when the patient is stable for discharge. Medical management has been initiated, and the Octreotide dose was optimized today to 100 mcg every 8 hours. Furthermore, input from the Hematology service is appreciated to assist in establishing a long-term management protocol for transfusion support, iron and erythropoietin. Direct visualization of the small bowel (with the aim to cauterize lesions) is only possible with a double balloon enteroscopy, not done in our Hospital and not even done in referral institutions like [facility] or [facility] as we have consulted. Intraoperative enteroscopy in his particular case carries an unacceptable high risk given his multple comorbidities. Subjective Date/time seen: 05/13/25 19:06 Interval history: According to the nursing staff, the patient is having brown stools (no melena) for the past 48 hours. Despite this, his Hb is slowly drifting down, today 6.5. Objective Data Vital Signs Vital Signs: Vital Signs - 24 hr 05/12/25 20:00 05/12/25 21:28 05/13/25 04:27 Temperature 97.8 F 97.6 F Pulse Rate 73 86 Respiratory Rate 16 18 Blood Pressure 127/53 L 163/60 H Pulse Oximetry 99 97 Oxygen Delivery Room Air 05/13/25 10:33 05/13/25 13:27 05/13/25 13:45 Temperature 97.3 F L 97.7 F Pulse Rate 70 72 Respiratory Rate 16 16 Blood Pressure 147/56 H 153/59 H Pulse Oximetry 99 100 Oxygen Delivery Room Air 05/13/25 14:45 05/13/25 14:45 05/13/25 15:45 Temperature 98.2 F 98.2 F 97.3 F L Pulse Rate 81 81 74 Respiratory Rate 16 16 20 Blood Pressure 104/52 L 104/52 L 150/57 H Pulse Oximetry 99 99 100 Oxygen Delivery 05/13/25 16:20 05/13/25 16:40 05/13/25 16:53 Temperature 98.6 F 98.6 F 98.2 F Pulse Rate 72 72 76 Respiratory Rate 16 16 18 Blood Pressure 148/52 H 148/52 H 160/59 H Pulse Oximetry 98 98 100 Oxygen Delivery 05/13/25 16:55 05/13/25 17:55 Temperature 98.2 F 98.4 F Pulse Rate 76 79 Respiratory Rate 18 20 Blood Pressure 160/59 H 158/63 H Pulse Oximetry 100 100 Oxygen Delivery Intake/Output Intake/Output: Intake & Output 05/10/25 05/11/25 05/12/25 05/13/25 23:59 23:59 23:59 23:59 Intake Total 1355 1591 2701.3 2113 Output Total 200 4144 754 2252 Balance 5061 005 7804.3 463 Meds/Results Medications: Active Medications Generic Name Dose Route Start Last Admin Trade Name Freq PRN Reason Stop Dose Admin Acetaminophen 650 mg 05/02/25 20:49 05/09/25 20:21 Acetaminophen Elixir 325 Mg/10.15 Ml Udc FEED TUBE 650 mg Q4H PRN Administration Mild Pain (1-3) or Fever Amlodipine Besylate 5 mg 05/05/25 17:25 05/13/25 10:34 Amlodipine Besylate 5 Mg Tablet FEED TUBE 5 mg DAILY OLENA Administration Dextrose 12.5 gm 05/02/25 20:20 Dextrose 50% 25 Gm/50 Ml Syringe IV PUSH PRN PRN Hypoglycemia Protocol Epoetin Donte-epbx 10,000 units 05/12/25 12:10 05/12/25 13:45 Epoetin Donte-Epbx 10,000 Units/Ml Vial SUB-Q 10,000 units TUTHSA@09 OLENA Administration Febuxostat 40 mg 05/06/25 09:00 05/13/25 10:33 Febuxostat 40 Mg Tablet FEED TUBE 40 mg DAILY OLENA Administration Furosemide 20 mg 05/11/25 09:00 05/11/25 09:11 Furosemide 20 Mg Tablet FEED TUBE 20 mg On Hold: 05/11/25 15:43 DAILY OLENA Administration Glucagon 1 mg 05/02/25 20:20 Glucagon For Inj 1 Mg Vial IM PRN PRN Hypoglycemia Protocol Glucose 15 gm 05/02/25 20:20 Glucose Oral Gel 15 Gm Of Glucse In 37.5 Gm Tube PO PRN PRN Hypoglycemia Protocol Dextrose 1,000 mls @ 100 mls/hr 05/02/25 20:20 Dextrose 5% 1,000 Ml IVPB PRN PRN Hypoglycemia Protocol Sodium Chloride 1,000 mls @ 75 mls/hr 05/11/25 15:45 05/13/25 10:23 Normal Saline Iv IV CONT Infused On Hold: 05/13/25 09:55 .[id number] OLENA Infusion Insulin Aspart 2 - 5 units 05/03/25 00:00 05/13/25 18:37 Insulin Aspart (*Bkc) 100 Units/Ml SUB-Q Not Given Q6HR OLENA Protocol Levetiracetam 500 mg 05/13/25 21:00 Levetiracetam Oral Pallavi 500 Mg/5 Ml Udc PO Q12HR OLENA Lidocaine 1 patch 05/08/25 09:00 05/13/25 10:33 Lidocaine 5% Patch TRANSDERM 1 patch DAILY OLENA Administration Octreotide Acetate 100 mcg 05/13/25 22:00 Octreotide Acetate 50 Mcg/Ml Vial SUB-Q Q8HR OLENA Simvastatin 40 mg 05/03/25 09:00 05/13/25 10:33 Simvastatin 20 Mg Tablet FEED TUBE 40 mg DAILY OLENA Administration Radiology Results: ITS Impressions Chest CT 05/03/25 09:17 IMPRESSION: 1. Diffuse lung disease, likely a combination of moderate pulmonary edema and pneumonia. 2. Moderate-sized pleural effusions. 3. Ascites. Renal Ultrasound 05/03/25 11:21 IMPRESSION: 1. No hydronephrosis. Modified Barium Swallow 05/04/25 13:53 IMPRESSION: Pharyngeal dysphagia with laryngeal penetration without aspiration. Please correlate with speech pathologist findings and specific feeding recommendations. Knee X-Ray 05/08/25 14:06 IMPRESSION: 1. Tricompartmental degenerative changes; calcification in the menisci could be associated with pseudogout or CPPD. 2. Extensive vascular calcification may be associated with peripheral artery disease. Chest X-Ray 05/09/25 13:06 IMPRESSION: 1. Interstitial pulmonary edema with pleural effusions. 2. Superimposed airspace disease not excluded. Labs Labs: Laboratory Results - last 24 hr 05/13/25 05/13/25 05/13/25 00:16 05:56 06:14 WBC 11.9 H RBC 2.10 L Hgb 6.5 L* Hct 20.2 L* MCV 96.2 MCH 31.0 MCHC 32.2 RDW 13.6 Plt Count 266 MPV 10.0 Immature Gran % (Auto) 0.7 H Neut % (Auto) 70.7 Lymph % (Auto) 9.8 L [place] % (Auto) 11.0 H Eos % (Auto) 7.3 H Baso % (Auto) 0.5 Lymph # (Auto) 1.17 [place] # (Auto) 1.3 H Eos # (Auto) 0.9 H Baso # (Auto) 0.1 Abs Immat Gran (auto) 0.08 H Absolute Neuts (auto) 8.5 H Absolute Nucleated RBC 0.000 Nucleated RBC % 0.0 Sodium 135 L Potassium 3.3 L Chloride 105 Carbon Dioxide 20 L Anion Gap 10 BUN 124 H* Creatinine 2.93 H Estim Creat Clear Calc 14 Estimated GFR 21 L Glucose 176 H POC Capillary Glucose 158 H 187 H Calcium 8.5 Magnesium 2.2 Total Bilirubin 0.3 AST 60 H ALT 81 H Alkaline Phosphatase 200 H Total Protein 6.1 L Albumin 2.7 L Blood Type Antibody Screen Crossmatch 05/13/25 05/13/25 05/13/25 08:40 13:00 18:18 WBC 12.4 H RBC 2.06 L Hgb 6.5 L* Hct 19.6 L* MCV 95.1 MCH 31.6 MCHC 33.2 RDW 13.6 Plt Count 249 MPV 9.6 Immature Gran % (Auto) Neut % (Auto) Lymph % (Auto) [place] % (Auto) Eos % (Auto) Baso % (Auto) Lymph # (Auto) [place] # (Auto) Eos # (Auto) Baso # (Auto) Abs Immat Gran (auto) Absolute Neuts (auto) Absolute Nucleated RBC Nucleated RBC % Sodium Potassium Chloride Carbon Dioxide Anion Gap BUN Creatinine Estim Creat Clear Calc Estimated GFR Glucose POC Capillary Glucose 198 H 187 H Calcium Magnesium Total Bilirubin AST ALT Alkaline Phosphatase Total Protein Albumin Blood Type B Negative Antibody Screen Negative Crossmatch See Detail
[2025-05-13] MEDS: levETIRAcetam ORAL SOL 500 MG/5 ML UDC PO (20:39)
[2025-05-13] MEDS: OCTREOTIDE ACETATE 50 MCG/ML VIAL 100 MCG SUB-Q (22:00)
[2025-05-14] MEDS: SODIUM CHLORIDE 0.9% IV 1,000 ML 75 ML IV CONT ×2 (03:58→15:30)
[2025-05-14 05:52] VITALS: BP 157/66; PULSE 71; RESP 16; TEMP 36.6; O2SAT 97
[2025-05-14] MEDS: OCTREOTIDE ACETATE 50 MCG/ML VIAL 100 MCG SUB-Q (06:55)
--- NOTE | 2025-05-14 07:19 | WPDONCPN ---
Subjective Date/time seen: 05/14/25 07:19 Interval history: Interval history: 05/11/25: Shantanu Burleson is a 84 year old male with history of alcoholism, CKD stage IV, a fib on anticoagualtion, type II DM and anemia of chronic disease and who is now admitted to the hospital with SOB x 2 days, melena and anemia. 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 Despite transfusions that raised his hemoglobin 4.6 to 9.1, his current Hb is trending down at 7.4, and he has had a recurrence of dark stools. This recurrent GI bleeding, common with his advanced renal failure, suggests the likely presence of additional, more distal AVMs. Given the recent EGD and ablation of the visible AVMs, there is no indication for immediate repeat endoscopy; instead, a Video Capsule Endoscopy will be scheduled post-discharge to evaluate for distal sources... Labs: (05/02/25): H/H 6.8/20.5 (05/03/25): WBC 10.2, Hgb 8.5, Hct 25.6, Plt 328 --> H/H 7.9/23.3 (05/04/25); H/H 8.5/25.6 (05/11/25): WBC 11.4, Hgb 7.1, Hct 27.0, Plt 302, iron 34, TIBC 157, retic 1.43. Antonio (D+I) neg. 05/12/25: Patient doing about the same. Neck brace on. present today. Patient was begun on Octreotide 50 mcg sc tid yesterday and if tolerated after 24 hours, will increase to 100 mcg sc tid. If this is tolerated, patient would be candidate for Octreotide LAR once monthly through the office. He mentions no adverse events.No fevers or chills. Denies SOB and CP. No rash. Labs: (05/12/25): WBC 12.8, Hgb 7.0, Hct 21.4, Plt 292, BUN 131, crea 3.18, Total bili 0.5. 05/13/25: Patient feeling about the same. No SOB or CP. Patient being fed through PEG tube. Continue to wear neck brace for C2 fracture; reports that her needs to wear it for 6 weeks or until C2 fracture heals. Hgb dropped to 6.5 today. Currently receiving Octreotide 50 mcg tid; dosing per GI. Labs: (05/13/25): WBC 11.9, Hgb 6.5, Hct 20.2, Plt 266, BUN 124, crea 2.93, AST 135, ALT 141, AP 272, Alb 2.9 05/14/25: CBC repeated yesterday but results not called to me. Labs: (05/13/25): WBC 12.4, Hgb 6.5, Hct 19.6, Plt 249.4 Labs from this morning pending. Plan: Hgb dropping. Octreotide currently at 50 mcg tid; recommend increase dose to target Octreotide 100 mcg tid - will leave up to GI/nephrology Plan to ultimately change to Octreotide LAR monthly. Given patient's poor kidney function, he may benefit from procrit if epo level < 500. Will draw lab. Labs pending - haptoglobin, ferritin, erythropoetin Recheck CBC. If repeat Hgb is <7, recommend transfusion. Supplement iron Capsule endoscopy planned after discharge Will plan f/u with Dr. Arguello 2-3 weeks post discharge. Objective Data Vital Signs Vital Signs: Vital Signs - 24 hr 05/13/25 10:33 05/13/25 13:27 05/13/25 13:45 Temperature 36.3 C L 36.5 C Pulse Rate 70 72 Respiratory Rate 16 16 Blood Pressure 147/56 H 153/59 H Pulse Oximetry 99 100 Oxygen Delivery Room Air 05/13/25 14:45 05/13/25 14:45 05/13/25 15:45 Temperature 36.8 C 36.8 C 36.3 C L Pulse Rate 81 81 74 Respiratory Rate 16 16 20 Blood Pressure 104/52 L 104/52 L 150/57 H Pulse Oximetry 99 99 100 Oxygen Delivery 05/13/25 16:20 05/13/25 16:40 05/13/25 16:53 Temperature 37.0 C 37.0 C 36.8 C Pulse Rate 72 72 76 Respiratory Rate 16 16 18 Blood Pressure 148/52 H 148/52 H 160/59 H Pulse Oximetry 98 98 100 Oxygen Delivery 05/13/25 16:55 05/13/25 17:55 05/13/25 18:55 Temperature 36.8 C 36.9 C 37.0 C Pulse Rate 76 79 81 Respiratory Rate 18 20 16 Blood Pressure 160/59 H 158/63 H 162/70 H Pulse Oximetry 100 100 Oxygen Delivery 05/13/25 19:23 05/13/25 19:29 05/13/25 20:00 Temperature 37.0 C 37.1 C Pulse Rate 81 81 Respiratory Rate 16 16 Blood Pressure 162/70 H 158/88 H Pulse Oximetry 99 100 Oxygen Delivery Room Air 05/14/25 05:52 Temperature 36.6 C Pulse Rate 71 Respiratory Rate 16 Blood Pressure 157/66 H Pulse Oximetry 97 Oxygen Delivery Intake/Output Intake/Output: Intake & Output 05/11/25 05/12/25 05/13/25 05/14/25 23:59 23:59 23:59 23:59 Intake Total 1591 2701.3 2463 Output Total 3328 398 4087 800 Balance 591 1801.3 813 -800 Meds/Results Medications: Active Medications Generic Name Dose Route Start Last Admin Trade Name Freq PRN Reason Stop Dose Admin Acetaminophen 650 mg 05/02/25 20:49 05/09/25 20:21 Acetaminophen Elixir 325 Mg/10.15 Ml Udc FEED TUBE 650 mg Q4H PRN Administration Mild Pain (1-3) or Fever Amlodipine Besylate 5 mg 05/05/25 17:25 05/13/25 10:34 Amlodipine Besylate 5 Mg Tablet FEED TUBE 5 mg DAILY OLENA Administration Dextrose 12.5 gm 05/02/25 20:20 Dextrose 50% 25 Gm/50 Ml Syringe IV PUSH PRN PRN Hypoglycemia Protocol Epoetin Donte-epbx 10,000 units 05/12/25 12:10 05/12/25 13:45 Epoetin Donte-Epbx 10,000 Units/Ml Vial SUB-Q 10,000 units TUTHSA@09 OLENA Administration Febuxostat 40 mg 05/06/25 09:00 05/13/25 10:33 Febuxostat 40 Mg Tablet FEED TUBE 40 mg DAILY OLENA Administration Furosemide 20 mg 05/11/25 09:00 05/11/25 09:11 Furosemide 20 Mg Tablet FEED TUBE 20 mg On Hold: 05/11/25 15:43 DAILY OLENA Administration Glucagon 1 mg 05/02/25 20:20 Glucagon For Inj 1 Mg Vial IM PRN PRN Hypoglycemia Protocol Glucose 15 gm 05/02/25 20:20 Glucose Oral Gel 15 Gm Of Glucse In 37.5 Gm Tube PO PRN PRN Hypoglycemia Protocol Dextrose 1,000 mls @ 100 mls/hr 05/02/25 20:20 Dextrose 5% 1,000 Ml IVPB PRN PRN Hypoglycemia Protocol Sodium Chloride 1,000 mls @ 75 mls/hr 05/11/25 15:45 05/14/25 03:58 Normal Saline Iv IV CONT 75 mls/hr .[id number] OLENA Administration Insulin Aspart 2 - 5 units 05/03/25 00:00 05/14/25 06:55 Insulin Aspart (*Bkc) 100 Units/Ml SUB-Q Not Given Q6HR OLENA Protocol Levetiracetam 500 mg 05/13/25 21:00 05/13/25 20:39 Levetiracetam Oral Pallavi 500 Mg/5 Ml Udc PO 500 mg Q12HR OLENA Administration Lidocaine 1 patch 05/08/25 09:00 05/13/25 10:33 Lidocaine 5% Patch TRANSDERM 1 patch DAILY OLENA Administration Octreotide Acetate 100 mcg 05/13/25 22:00 05/14/25 06:55 Octreotide Acetate 50 Mcg/Ml Vial SUB-Q 100 mcg Q8HR OLENA Administration Simvastatin 40 mg 05/03/25 09:00 05/13/25 10:33 Simvastatin 20 Mg Tablet FEED TUBE 40 mg DAILY OLENA Administration Radiology Results: ITS Impressions Chest CT 05/03/25 09:17 IMPRESSION: 1. Diffuse lung disease, likely a combination of moderate pulmonary edema and pneumonia. 2. Moderate-sized pleural effusions. 3. Ascites. Renal Ultrasound 05/03/25 11:21 IMPRESSION: 1. No hydronephrosis. Modified Barium Swallow 05/04/25 13:53 IMPRESSION: Pharyngeal dysphagia with laryngeal penetration without aspiration. Please correlate with speech pathologist findings and specific feeding recommendations. Knee X-Ray 05/08/25 14:06 IMPRESSION: 1. Tricompartmental degenerative changes; calcification in the menisci could be associated with pseudogout or CPPD. 2. Extensive vascular calcification may be associated with peripheral artery disease. Chest X-Ray 05/09/25 13:06 IMPRESSION: 1. Interstitial pulmonary edema with pleural effusions. 2. Superimposed airspace disease not excluded. Labs Labs: Laboratory Results - last 24 hr 05/13/25 05/13/25 05/13/25 08:40 13:00 18:18 WBC 12.4 H RBC 2.06 L Hgb 6.5 L* Hct 19.6 L* MCV 95.1 MCH 31.6 MCHC 33.2 RDW 13.6 Plt Count 249 MPV 9.6 POC Capillary Glucose 198 H 187 H Blood Type B Negative Antibody Screen Negative Crossmatch See Detail 05/14/25 00:55 WBC RBC Hgb Hct MCV MCH MCHC RDW Plt Count MPV POC Capillary Glucose 175 H Blood Type Antibody Screen Crossmatch
[2025-05-14 07:22] LABS: Hematocrit 27.3 % (42.0-52.0); Hemoglobin 9.2 g/dL (14.0-18.0); Immature Granulocyte Percent A 0.6 % (0-0.5); Lymphocytes Absolute Auto 0.99 K/mm3 (0.9-3.2); Mean Corpuscular HGB Conc 33.7 g/dl (32-36); Mean Corpuscular Hemoglobin 29.7 pg (26-34); Mean Corpuscular Volume 88.1 fl (80-100); Nucleated Red Blood Cells Absolute Auto 0.000 K/mm3 (0.0-0.012); Nucleated Red Blood Cells Perc 0.0 % (0.0-0.2); Platelet Count Result 259 k/mm3 (150-375); Red Blood Count 3.10 M/mm3 (4.6-6.20); White Blood Count 12.6 K/mm3 (4.5-10.0)
[2025-05-14 07:37] LABS: Alanine Aminotransferase 80 U/L (6-50); Albumin Level 2.8 g/dL (3.5-5.1); Alkaline Phosphatase 221 U/L (38-126); Anion Gap 11 mmol/L (4-12); Aspartate Amino Transferase 66 U/L (17-59); Bilirubin,Total 0.4 mg/dL (0.2-1.3); Blood Urea Nitrogen 120 mg/dL (9-20); Calcium 8.5 mg/dL (8.4-10.2); Carbon Dioxide 19 mmol/L (22-30); Chloride 105 mmol/L (98-107); Estimated CRCL calculation 16 ml/min; Estimated Glomerular Filt Rate 23; Glucose 173 mg/dL (65-110); Magnesium 2.1 mg/dL (1.6-2.3); Potassium 3.0 mmol/L (3.4-5.0); Sodium 135 mmol/L (137-145); Total Protein 6.3 g/dL (6.3-8.2)
[2025-05-14] MEDS: POTASSIUM CHLORIDE 20 MEQ ER TABLET PO (08:47)
[2025-05-14] MEDS: SIMVASTATIN 20 MG TABLET 40 MG FEED TUBE (08:48)
[2025-05-14] MEDS: FEBUXOSTAT 40 MG TABLET FEED TUBE (08:48)
[2025-05-14] MEDS: levETIRAcetam ORAL SOL 500 MG/5 ML UDC PO (08:49)
[2025-05-14] MEDS: LIDOCAINE 5% PATCH 1 PATCH TRANSDERM (08:49)
[2025-05-14] MEDS: EPOETIN ALFA-EPBX 10,000 UNITS/ML VIAL 10000 UNITS SUB-Q (13:07)
[2025-05-14 14:00] VITALS: BP 152/64; PULSE 78; RESP 18; TEMP 36.4; O2SAT 100
--- NOTE | 2025-05-14 14:05 | P.PNNP_ITS ---
Progress Note: A&P Assessment and Plan (1) Acute kidney injury: Code(s): N17.9 - Acute kidney failure, unspecified Status: Acute Assessment and Plan: * slow improvement * suspect due a few issues: * prerenal factors * severe anemia * pneumonia * other * evaluation to date noted: * renal u/s without obstruction * urine electrolytes are prerenal * UA without evidence of infection * proteinuria noted * CPK low * still making good urine output * possible overdiuresis(?) * however recent CXR with evidence of congestion/fluid * azotemia/elevated BUN noted -- likely due to #3; something else contributing(?) * holding diuretics at this time * s/p trial of IVFs * follow trend of repeat labs and UOP (2) Stage 4 chronic kidney disease: Code(s): N18.4 - Chronic kidney disease, stage 4 (severe) Status: Chronic Assessment and Plan: * fluctuates to extremes at baseline... * runs anywhere from 2.5 - 3.5mg/dL * in the last 3 - 4 months, creatinine has been running around 2.5 - 3.0mg/dl * due to hypertension, diabetes, vascular disease, and age related change along chronic diuretic therapy to maintain volume status (3) Azotemia: Code(s): R79.89 - Other specified abnormal findings of blood chemistry Status: Acute Assessment and Plan: * worsening in the last few days * suspect due to ongoing slow GI bleeding * another potential etiology(?) (4) GI bleed: Qualifiers: GI bleed type/associated pathology: melena Qualified Code(s): K92.1 - Melena Code(s): K92.2 - Gastrointestinal hemorrhage, unspecified Status: Acute Assessment and Plan: * as noted by anemia and black tarry stools on admission * s/p 5 units of PRBC transfusion this admission * s/p EGD on 05/04 with findings noted: * 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 with small amount of hematin in the lumen * s/p cauterization with APC * GI recommendations noted * holding Eliquis * on PPI * suspect more AVMs present causing slow oozing of blood - noted plans for outpatient capsule endoscopy * suspected etiology of elevated BUN/azotemia * follow trend of H/H (5) Anemia: Code(s): D64.9 - Anemia, unspecified Status: Acute Assessment and Plan: * partly related to NANDINI, CKD, and complicated by #4 * follow trend of H/H * on THEO/Epogen * Hematology recommendations noted: * on octreotide (6) Left knee pain: Code(s): M25.562 - Pain in left knee Status: Acute Assessment and Plan: * slow improvement * X-rays noted * pain control as tolerated (7) Shortness of breath: Code(s): R06.02 - Shortness of breath Status: Acute Assessment and Plan: * clinically seems better if not resolved * CT imaging noted: * moderate pulmonary edema * pneumonia * pleural effusions * ascites * viral testing for influenza/RSV/COVID negative * remains on oral diuretic therapy * off oxygen at this time * follow respiratory status (8) Pneumonia: Code(s): J18.9 - Pneumonia, unspecified organism Status: Acute Assessment and Plan: * as noted by admission imaging * follow culture data (negative to date) * completed course of antibiotics (9) Atrial fibrillation: Qualifiers: Atrial fibrillation type: unspecified chronic Qualified Code(s): I48.20 - Chronic atrial fibrillation, unspecified Code(s): I48.91 - Unspecified atrial fibrillation Status: Chronic Assessment and Plan: * rate control strategy * Eliquis on hold (see #4) (10) Hyponatremia: Code(s): E87.1 - Hypo-osmolality and hyponatremia Status: Acute Assessment and Plan: * improving if not stable * likely related to NANDINI on CKD * follow trend (11) Dysphagia: Qualifiers: Dysphagia type: unspecified Qualified Code(s): R13.10 - Dysphagia, unspecified Code(s): R13.10 - Dysphagia, unspecified Status: Chronic Assessment and Plan: * s/p PEG tube placement * speech therapy recommendations and MBS noted * on tube feedings (12) Hypertension: Code(s): I10 - Essential (primary) hypertension Status: Chronic Assessment and Plan: * reasonable control * follow trend of hemodynamics (13) Diabetes mellitus: Qualifiers: Diabetes mellitus type: type 2 Diabetes mellitus snf insulin use: without snf use Diabetes mellitus complication status: with kidney complications Diabetes mellitus complication detail: with chronic kidney disease Chronic kidney disease stage: stage 4 (severe) Qualified Code(s): E 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; N18.4 - Chronic kidney disease, stage 4 (severe) Code(s): E11.9 - Type 2 diabetes mellitus without complications Status: Chronic Assessment and Plan: * follow accu-cheks * glycemic control per hospitalist (14) Type II fracture of odontoid process: Qualifiers: Encounter type: subsequent encounter Fracture type: closed Fracture alignment: nondisplaced Fracture healing: with routine healing Qualified Code(s): S12.112D - Nondisplaced Type II dens fracture, subsequent encounter for fracture with routine healing Code(s): S12.110A - Anterior displaced Type II dens fracture, initial encounter for closed fracture Status: Chronic Assessment and Plan: * as noted on previous imaging * conservative therapy per Neurosurgery * Arnot collar in place * ongoing PT/OT as tolerated Will continue to follow. L Subjective Date/time seen: 05/14/25 14:05 Interval history: Follow-up for acute kidney injury/acute renal failure on chronic kidney disease. Improvement/appropriate incrementation in H/H with PRBC transfusion yesterday; relative improvement in renal function/creatinine as BUN at this time; no apparent distress noted; still having difficulty ambulating and standing up. Exam 2 Narrative: General: elderly but WD/WN male in NAD; Arnot collar in place Heart: normal S1 and S2; no rub Lungs: clear anteriorly Abdomen: soft, nontender, nondistended, positive bowel sounds Extremities: no cyanosis or clubbing; trace edema Skin: no rash Objective Data Vital Signs Vital Signs: Vital Signs Temp Pulse Resp BP Pulse Ox O2 Del Method 05/14/25 14:00 97.5 F L 78 18 152/64 H 100 05/14/25 08:00 Room Air 05/14/25 05:52 98 F 71 16 157/66 H 97 05/13/25 20:00 Room Air 05/13/25 19:29 98.7 F 81 16 158/88 H 100 05/13/25 19:23 98.6 F 81 16 162/70 H 99 Intake/Output Intake/Output: Intake & Output 05/11/25 05/12/25 05/13/25 05/14/25 23:59 23:59 23:59 23:59 Intake Total 1591 2701.3 2463 865 Output Total 6295 373 0029 800 Balance 591 1801.3 813 65 Meds/Results Medications: Active Medications Generic Name Dose Route Start Last Admin Trade Name Freq PRN Reason Stop Dose Admin Acetaminophen 650 mg 05/02/25 20:49 05/09/25 20:21 Acetaminophen Elixir 325 Mg/10.15 Ml Udc FEED TUBE 650 mg Q4H PRN Administration Mild Pain (1-3) or Fever Amlodipine Besylate 5 mg 05/05/25 17:25 05/14/25 08:48 Amlodipine Besylate 5 Mg Tablet FEED TUBE 5 mg DAILY OLENA Administration Dextrose 12.5 gm 05/02/25 20:20 Dextrose 50% 25 Gm/50 Ml Syringe IV PUSH PRN PRN Hypoglycemia Protocol Epoetin Donte-epbx 10,000 units 05/12/25 12:10 05/14/25 13:07 Epoetin Donte-Epbx 10,000 Units/Ml Vial SUB-Q 10,000 units TUTHSA@09 OLENA Administration Febuxostat 40 mg 05/06/25 09:00 05/14/25 08:48 Febuxostat 40 Mg Tablet FEED TUBE 40 mg DAILY OLENA Administration Furosemide 20 mg 05/11/25 09:00 05/11/25 09:11 Furosemide 20 Mg Tablet FEED TUBE 20 mg On Hold: 05/11/25 15:43 DAILY OLENA Administration Glucagon 1 mg 05/02/25 20:20 Glucagon For Inj 1 Mg Vial IM PRN PRN Hypoglycemia Protocol Glucose 15 gm 05/02/25 20:20 Glucose Oral Gel 15 Gm Of Glucse In 37.5 Gm Tube PO PRN PRN Hypoglycemia Protocol Dextrose 1,000 mls @ 100 mls/hr 05/02/25 20:20 Dextrose 5% 1,000 Ml IVPB PRN PRN Hypoglycemia Protocol Sodium Chloride 1,000 mls @ 75 mls/hr 05/11/25 15:45 05/14/25 15:30 Normal Saline Iv IV CONT 75 mls/hr .[id number] OLENA Administration Insulin Aspart 2 - 5 units 05/03/25 00:00 05/14/25 18:33 Insulin Aspart (*Bkc) 100 Units/Ml SUB-Q Not Given Q6HR OLENA Protocol Levetiracetam 500 mg 05/13/25 21:00 05/14/25 08:49 Levetiracetam Oral Pallavi 500 Mg/5 Ml Udc PO 500 mg Q12HR OLENA Administration Lidocaine 1 patch 05/08/25 09:00 05/14/25 08:49 Lidocaine 5% Patch TRANSDERM 1 patch DAILY OLENA Administration Octreotide Acetate 100 mcg 05/14/25 14:00 05/14/25 15:26 Octreotide Acetate 100 Mcg/Ml Vial SUB-Q 100 mcg Q8HR OLENA Administration Simvastatin 40 mg 05/03/25 09:00 05/14/25 08:48 Simvastatin 20 Mg Tablet FEED TUBE 40 mg DAILY OLENA Administration Radiology Results: ITS Impressions Chest CT 05/03/25 09:17 IMPRESSION: 1. Diffuse lung disease, likely a combination of moderate pulmonary edema and pneumonia. 2. Moderate-sized pleural effusions. 3. Ascites. Renal Ultrasound 05/03/25 11:21 IMPRESSION: 1. No hydronephrosis. Modified Barium Swallow 05/04/25 13:53 IMPRESSION: Pharyngeal dysphagia with laryngeal penetration without aspiration. Please correlate with speech pathologist findings and specific feeding recommendations. Knee X-Ray 05/08/25 14:06 IMPRESSION: 1. Tricompartmental degenerative changes; calcification in the menisci could be associated with pseudogout or CPPD. 2. Extensive vascular calcification may be associated with peripheral artery disease. Chest X-Ray 05/09/25 13:06 IMPRESSION: 1. Interstitial pulmonary edema with pleural effusions. 2. Superimposed airspace disease not excluded. Labs Labs: Laboratory Tests 05/14/25 06:53 05/14/25 06:54 Calcium 8.5 Phosphorus 3.6 Magnesium 2.1 Total Bilirubin 0.4 AST 66 H ALT 80 H Alkaline Phosphatase 221 H Total Protein 6.3 Albumin 2.8 L Microbiology 05/08/25 15:20 Blood Blood Culture - Final 05/08/25 15:31 Blood Blood Culture - Final
--- NOTE | 2025-05-14 14:49 | PM.IMPN ---
Progress Note: A&P Assessment and Plan (1) Shortness of breath: Code(s): R06.02 - Shortness of breath Status: Acute (2) GI bleed: Qualifiers: GI bleed type/associated pathology: melena Qualified Code(s): K92.1 - Melena Code(s): K92.2 - Gastrointestinal hemorrhage, unspecified Status: Acute (3) AVM (arteriovenous malformation) of duodenum, acquired with hemorrhage: Code(s): K31.811 - Angiodysplasia of stomach and duodenum with bleeding Status: Acute (4) Anemia: Code(s): D64.9 - Anemia, unspecified Status: Acute (5) Dysphagia: Qualifiers: Dysphagia type: unspecified Qualified Code(s): R13.10 - Dysphagia, unspecified Code(s): R13.10 - Dysphagia, unspecified Status: Chronic (6) Acute kidney injury superimposed on CKD: Code(s): N17.9 - Acute kidney failure, unspecified; N18.9 - Chronic kidney disease, unspecified Status: Acute (7) Hypokalemia: Code(s): E87.6 - Hypokalemia Status: Acute (8) Hypertension: Code(s): I10 - Essential (primary) hypertension Status: Chronic (9) Alcohol abuse: Code(s): F10.10 - Alcohol abuse, uncomplicated Status: Acute (10) Atrial fibrillation: Qualifiers: Atrial fibrillation type: unspecified chronic Qualified Code(s): I48.20 - Chronic atrial fibrillation, unspecified Code(s): I48.91 - Unspecified atrial fibrillation Status: Chronic (11) Diabetes mellitus: Qualifiers: Diabetes mellitus type: type 2 Diabetes mellitus alf insulin use: without alf use Diabetes mellitus complication status: with kidney complications Diabetes mellitus complication detail: with chronic kidney disease Chronic kidney disease stage: stage 4 (severe) Qualified Code(s): E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; N18.4 - Chronic kidney disease, stage 4 (severe) Code(s): E11.9 - Type 2 diabetes mellitus without complications Status: Chronic (12) Leukocytosis: Code(s): D72.829 - Elevated white blood cell count, unspecified Status: Acute (13) Hypothermia: Qualifiers: Encounter type: initial encounter Qualified Code(s): T68.XXXA - Hypothermia, initial encounter Code(s): T68.XXXA - Hypothermia, initial encounter Status: Acute (14) Knee pain: Code(s): M25.569 - Pain in unspecified knee Status: Acute (15) Type II fracture of odontoid process: Qualifiers: Encounter type: subsequent encounter Fracture type: closed Fracture alignment: nondisplaced Fracture healing: with routine healing Qualified Code(s): S12.112D - Nondisplaced Type II dens fracture, subsequent encounter for fracture with routine healing Code(s): S12.110A - Anterior displaced Type II dens fracture, initial encounter for closed fracture Status: Chronic Plan patient with dark tarry seen by GI suspect most likely due to AVM, and his hh now stable, will continue to monitor. Recommending feeding via PEG, patient has not had any seizures while in the hospital Patient white counts trending up, has difficulty with swallowing, x-ray today concerning for pnuemonia, patient is treated with Augmentin, currently NPO, will switch with Zosyn, will monitor, and plan. his is present gave updates. 84 y/o M with PMH of alcohol use disorder, hypertension, prostate cancer, hyperlipidemia, gout, CKD stage IV, seizures, dysphagia S/P peg placement, atrial fibrillation on anticoagulation, anemia of chronic disease, and type 2 diabetes presents here with anemia and bradycardia, melena, shortness of breath x2 days. The patient presents here from [facility] via EMS on 05/02 for further evaluation of low hemoglobin and bradycardia. Patient currently at [facility] after a recent admission at [facility] from 04/12/25 to 04/24/25. Seen at that time for altered mental status/new onset seizure disorder. Seizure suspected to be related to alcohol use or withdrawal, started on Keppra 750 mg twice daily. Patient additionally sustained a type 2 odontoid fracture for which he saw neuro surgery and was placed in an Kane collar, follow-up with their service in 6 weeks and discharged to [facility] for PT/OT. Patient also failed MBS on 04/17 for which a PEG tube was placed on 04/20 and he was started on tube feeds, strict NPO, and to continue speech therapy at [facility]. Patient also developed new AFib during this admission for which he was restarted on labetalol for concurrent hypertension and he was started on anticoagulation with Eliquis. Additionally treated for CAP for which he did not require supplemental oxygen. Has since been at [facility] and has had a remarkable recovery up until 05/02/2025 when his Hgb was found to be 5.2, verified via repeat (4.8). Patient also noted to be bradycardic at 54. Per the patient's , he has been experiencing dark tarry stools for the past 4 days. Initial VS at presentation: 97.9? F, HR 54, R 19, 111/54, and 100% on RA. ED workup showed: WBC 10.5, hemoglobin 4.6 (previously 7.5 on 04/25), INR 1.6, sodium 131, creatinine 3.57 and GFR 17 (previously 2.87 and GFR 21 on 04/25), glucose 142, albumin 2.9. Shortness of breath -reported of shortness of breath transiently on 05/03/2025. Chest CT demonstrated diffuse lung disease likely a combination of moderate pulmonary edema and pneumonia, moderate-size pleural effusions, ascites -patient did received 3 units PRBC. Quad viral screen negative. Respiratory pathogen panel pending. Mycoplasma IgM negative. -required O2 transiently. Has been breathing well since on room air. Lasix was resumed but now currently on hold due to NANDINI Melena, acute anemia on chronic anemia -GI consulted. Status post 3 units PRBC. 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 Lesion was cauterized with APC. GI recommended restarting tube feeding, holding Eliquis for 7 days status post EGD. Discontinue Protonix. Hemoglobin has been stable. Patient is trending down. With no signs of bleeding. Will continue to monitor 05/10/2025 started having dark stool. GI reconsulted. Added on PPI Plans for outpatient capsule endoscopy for suspected more AVMs. Transfused PRBC yesterday for hgb 6.5 octreotide for AVMs and dose increased yesterday. Hgb 9.2. Follow Dysphagia status post PEG placement -speech therapy consulted, modified barium swallow completed on 05/04/2025 after EGD, demonstrates pharyngeal dysphagia with laryngeal penetration without aspiration. Tube feeding restarted, NPO except for 1 on 1 oral feeding per speech therapy with continued evaluations and treatment. Continue dietitian and speech therapy NANDINI and CKD -recent baseline around 3.0. Presents to serum creatinine 3.49, no improvement after 3 unit PRBC and 1 L of lactated Ringer's -nephrology consultation. Elevated BUN possibly due to GI bleed. Appreciate recommendations. Hamiltno catheter removed. Cr better at 2.6 -continue intake/output monitoring and daily weights. Stop IV fluids Hypokalemia: Replace and monitor Hypertension Initially holding amlodipine and hydralazine due to GI bleed. Blood pressure was elevated so amlodipine resumed SBP running about 150-160 range. Follow for now. History of alcohol use disorder, seizure disorder Keppra level elevated at 78. Lowered Keppra to 500mg b.i.d. Neuro consult. Discussed with neurology. Atrial fibrillation on anticoagulation, bradycardia Currently in sinus rhythm. Holding [employer] labetalol Eliquis on hold due to GI bleed Vth-wicrill-woffublda diabetes mellitus Aic 6.1% in Feb. Accu-Cheks q.6 hours with low-dose insulin sliding scale and hypoglycemia protocol Type 2 fracture of odontoid process -continue Kane collar -continue PT/OT Leukocytosis Afebrile. Patient appears nontoxic, no evidence of active infection. BCx NGTD. Chest x-ray 05/09 with CHF and superimposed probable pneumonia. Multiple bowel movement charted. C diff came back negative. Leukocytosis stable at 12K. Follow Hypothermia -on admission, received heating blanket/Alma Hugger, could have been due to anemia. Resolved. Left knee pain x-ray with no fracture however does have tricompartmental degenerative changes, calcification of the menisci which could be associated with pseudo gout or CPPD. Extensive vascular calcification associated with peripheral artery disease. Pain better. Will continue therapy and lidocaine patch. Encouraged him to also do ROM exercises to the left ankle. DVT prophylaxis: Holding Eliquis, SCDs with ongoing bleeding likely hold Eliquis. Code status - DNR Subjective Date/time seen: 05/14/25 14:49 Interval history: 84yo male with alcohol use disorder, HTN, HLD, prostate cancer, gout, CKD stage IV, seizures, dysphagia S/P peg placement, atrial fibrillation on anticoagulation, anemia of chronic disease, and type 2 DM who presents here with anemia, bradycardia, melena, and shortness of breath x2 days. Slept well but still feels sleepy. No Cp or SOB. Still unable to stand. Exam Narrative: AF 98.0 157/66 71 16 97% ra Gen - thin, frail male in NARD Neck - C-collar in place Chest - CTA bilaterally, nml RR CV - RRR S1/S2 Abd - soft, NT/ND, +BS, GTube site clean and dry Ext - trace LE edema. Neuro - alert and appropriate Psych - nml mood Skin - warm and dry Objective Data Vital Signs Vital Signs: Vital Signs - 24 hr 05/13/25 15:45 05/13/25 16:20 05/13/25 16:40 Temperature 97.3 F L 98.6 F 98.6 F Pulse Rate 74 72 72 Respiratory Rate 20 16 16 Blood Pressure 150/57 H 148/52 H 148/52 H Pulse Oximetry 100 98 98 Oxygen Delivery 05/13/25 16:53 05/13/25 16:55 05/13/25 17:55 Temperature 98.2 F 98.2 F 98.4 F Pulse Rate 76 76 79 Respiratory Rate 18 18 20 Blood Pressure 160/59 H 160/59 H 158/63 H Pulse Oximetry 100 100 100 Oxygen Delivery 05/13/25 18:55 05/13/25 19:23 05/13/25 19:29 Temperature 98.6 F 98.6 F 98.7 F Pulse Rate 81 81 81 Respiratory Rate 16 16 16 Blood Pressure 162/70 H 162/70 H 158/88 H Pulse Oximetry 99 100 Oxygen Delivery 05/13/25 20:00 05/14/25 05:52 05/14/25 08:00 Temperature 98 F Pulse Rate 71 Respiratory Rate 16 Blood Pressure 157/66 H Pulse Oximetry 97 Oxygen Delivery Room Air Room Air Intake/Output Intake/Output: Intake & Output 05/11/25 05/12/25 05/13/25 05/14/25 23:59 23:59 23:59 23:59 Intake Total 1591 2701.3 2463 Output Total 9685 152 6702 800 Balance 591 1801.3 813 -800 Meds/Results Medications: Active Medications Generic Name Dose Route Start Last Admin Trade Name Freq PRN Reason Stop Dose Admin Acetaminophen 650 mg 05/02/25 20:49 05/09/25 20:21 Acetaminophen Elixir 325 Mg/10.15 Ml Udc FEED TUBE 650 mg Q4H PRN Administration Mild Pain (1-3) or Fever Amlodipine Besylate 5 mg 05/05/25 17:25 05/14/25 08:48 Amlodipine Besylate 5 Mg Tablet FEED TUBE 5 mg DAILY OLENA Administration Dextrose 12.5 gm 05/02/25 20:20 Dextrose 50% 25 Gm/50 Ml Syringe IV PUSH PRN PRN Hypoglycemia Protocol Epoetin Donte-epbx 10,000 units 05/12/25 12:10 05/14/25 13:07 Epoetin Donte-Epbx 10,000 Units/Ml Vial SUB-Q 10,000 units TUTHSA@09 OLENA Administration Febuxostat 40 mg 05/06/25 09:00 05/14/25 08:48 Febuxostat 40 Mg Tablet FEED TUBE 40 mg DAILY OLENA Administration Furosemide 20 mg 05/11/25 09:00 05/11/25 09:11 Furosemide 20 Mg Tablet FEED TUBE 20 mg On Hold: 05/11/25 15:43 DAILY OLENA Administration Glucagon 1 mg 05/02/25 20:20 Glucagon For Inj 1 Mg Vial IM PRN PRN Hypoglycemia Protocol Glucose 15 gm 05/02/25 20:20 Glucose Oral Gel 15 Gm Of Glucse In 37.5 Gm Tube PO PRN PRN Hypoglycemia Protocol Dextrose 1,000 mls @ 100 mls/hr 05/02/25 20:20 Dextrose 5% 1,000 Ml IVPB PRN PRN Hypoglycemia Protocol Sodium Chloride 1,000 mls @ 75 mls/hr 05/11/25 15:45 05/14/25 03:58 Normal Saline Iv IV CONT 75 mls/hr .[id number] OLENA Administration Insulin Aspart 2 - 5 units 05/03/25 00:00 05/14/25 13:02 Insulin Aspart (*Bkc) 100 Units/Ml SUB-Q Not Given Q6HR OLENA Protocol Levetiracetam 500 mg 05/13/25 21:00 05/14/25 08:49 Levetiracetam Oral Pallavi 500 Mg/5 Ml Udc PO 500 mg Q12HR OLENA Administration Lidocaine 1 patch 05/08/25 09:00 05/14/25 08:49 Lidocaine 5% Patch TRANSDERM 1 patch DAILY OLENA Administration Octreotide Acetate 100 mcg 05/14/25 14:00 Octreotide Acetate 100 Mcg/Ml Vial SUB-Q Q8HR OLENA Simvastatin 40 mg 05/03/25 09:00 05/14/25 08:48 Simvastatin 20 Mg Tablet FEED TUBE 40 mg DAILY OLENA Administration Radiology Results: ITS Impressions Chest CT 05/03/25 09:17 IMPRESSION: 1. Diffuse lung disease, likely a combination of moderate pulmonary edema and pneumonia. 2. Moderate-sized pleural effusions. 3. Ascites. Renal Ultrasound 05/03/25 11:21 IMPRESSION: 1. No hydronephrosis. Modified Barium Swallow 05/04/25 13:53 IMPRESSION: Pharyngeal dysphagia with laryngeal penetration without aspiration. Please correlate with speech pathologist findings and specific feeding recommendations. Knee X-Ray 05/08/25 14:06 IMPRESSION: 1. Tricompartmental degenerative changes; calcification in the menisci could be associated with pseudogout or CPPD. 2. Extensive vascular calcification may be associated with peripheral artery disease. Chest X-Ray 05/09/25 13:06 IMPRESSION: 1. Interstitial pulmonary edema with pleural effusions. 2. Superimposed airspace disease not excluded. Labs Labs: Laboratory Results - last 24 hr 05/13/25 05/13/25 05/14/25 08:40 18:18 00:55 WBC RBC Hgb Hct MCV MCH MCHC RDW Plt Count MPV Immature Gran % (Auto) Neut % (Auto) Lymph % (Auto) [place] % (Auto) Eos % (Auto) Baso % (Auto) Lymph # (Auto) [place] # (Auto) Eos # (Auto) Baso # (Auto) Abs Immat Gran (auto) Absolute Neuts (auto) Absolute Nucleated RBC Nucleated RBC % Sodium Potassium Chloride Carbon Dioxide Anion Gap BUN Creatinine Estim Creat Clear Calc Estimated GFR Glucose POC Capillary Glucose 187 H 175 H Calcium Phosphorus Magnesium Total Bilirubin AST ALT Alkaline Phosphatase Total Protein Albumin Blood Type B Negative Antibody Screen Negative Crossmatch See Detail 05/14/25 05/14/25 05/14/25 06:53 06:54 11:46 WBC 12.6 H RBC 3.10 L Hgb 9.2 L Hct 27.3 L MCV 88.1 D MCH 29.7 D MCHC 33.7 RDW 16.4 H Plt Count 259 MPV 9.9 Immature Gran % (Auto) 0.6 H Neut % (Auto) 76.4 H Lymph % (Auto) 7.8 L [place] % (Auto) 9.9 H Eos % (Auto) 4.9 H Baso % (Auto) 0.4 Lymph # (Auto) 0.99 [place] # (Auto) 1.3 H Eos # (Auto) 0.6 H Baso # (Auto) 0.1 Abs Immat Gran (auto) 0.08 H Absolute Neuts (auto) 9.6 H Absolute Nucleated RBC 0.000 Nucleated RBC % 0.0 Sodium 135 L Potassium 3.0 L Chloride 105 Carbon Dioxide 19 L Anion Gap 11 BUN 120 H* Creatinine 2.63 H Estim Creat Clear Calc 16 Estimated GFR 23 L Glucose 173 H POC Capillary Glucose 185 H Calcium 8.5 Phosphorus 3.6 Magnesium 2.1 Total Bilirubin 0.4 AST 66 H ALT 80 H Alkaline Phosphatase 221 H Total Protein 6.3 Albumin 2.8 L Blood Type Antibody Screen Crossmatch
[2025-05-14] MEDS: OCTREOTIDE ACETATE 100 MCG/ML VIAL SUB-Q ×2 (15:26→21:03)
--- NOTE | 2025-05-14 16:41 | P.PNGI_ITS ---
Progress Note: A&P Assessment and Plan (1) GI bleed: Qualifiers: GI bleed type/associated pathology: melena Qualified Code(s): K92.1 - Melena Code(s): K92.2 - Gastrointestinal hemorrhage, unspecified Status: Acute Assessment and Plan: The patient did not have overt GI bleeding, i.e., melena the past 72 hours. He remains hemodynamically stable. He is now on maximum dose of octreotide, 100 mcg every 8 hours. Apparently the plans are to send him to a rehab institution with this medication, and with regular controlled of hematocrit. The appointment for capsule endoscopy is already set in our system, to be done as an outpatient in order to confirm the presence of suspected angiodysplasia in the small bowel. Will sign off for now, let us know if there are any other issues related to our specialty. Subjective Date/time seen: 05/14/25 16:41 Objective Data Vital Signs Vital Signs: Vital Signs - 24 hr 05/13/25 16:53 05/13/25 16:55 05/13/25 17:55 Temperature 98.2 F 98.2 F 98.4 F Pulse Rate 76 76 79 Respiratory Rate 18 18 20 Blood Pressure 160/59 H 160/59 H 158/63 H Pulse Oximetry 100 100 100 Oxygen Delivery 05/13/25 18:55 05/13/25 19:23 05/13/25 19:29 Temperature 98.6 F 98.6 F 98.7 F Pulse Rate 81 81 81 Respiratory Rate 16 16 16 Blood Pressure 162/70 H 162/70 H 158/88 H Pulse Oximetry 99 100 Oxygen Delivery 05/13/25 20:00 05/14/25 05:52 05/14/25 08:00 Temperature 98 F Pulse Rate 71 Respiratory Rate 16 Blood Pressure 157/66 H Pulse Oximetry 97 Oxygen Delivery Room Air Room Air 05/14/25 14:00 Temperature 97.5 F L Pulse Rate 78 Respiratory Rate 18 Blood Pressure 152/64 H Pulse Oximetry 100 Oxygen Delivery Intake/Output Intake/Output: Intake & Output 05/11/25 05/12/25 05/13/25 05/14/25 23:59 23:59 23:59 23:59 Intake Total 1591 2701.3 2463 865 Output Total 4232 710 5152 800 Balance 591 1801.3 813 65 Meds/Results Medications: Active Medications Generic Name Dose Route Start Last Admin Trade Name Freq PRN Reason Stop Dose Admin Acetaminophen 650 mg 05/02/25 20:49 05/09/25 20:21 Acetaminophen Elixir 325 Mg/10.15 Ml Udc FEED TUBE 650 mg Q4H PRN Administration Mild Pain (1-3) or Fever Amlodipine Besylate 5 mg 05/05/25 17:25 05/14/25 08:48 Amlodipine Besylate 5 Mg Tablet FEED TUBE 5 mg DAILY OLENA Administration Dextrose 12.5 gm 05/02/25 20:20 Dextrose 50% 25 Gm/50 Ml Syringe IV PUSH PRN PRN Hypoglycemia Protocol Epoetin Donte-epbx 10,000 units 05/12/25 12:10 05/14/25 13:07 Epoetin Donte-Epbx 10,000 Units/Ml Vial SUB-Q 10,000 units TUTHSA@09 OLENA Administration Febuxostat 40 mg 05/06/25 09:00 05/14/25 08:48 Febuxostat 40 Mg Tablet FEED TUBE 40 mg DAILY OLENA Administration Furosemide 20 mg 05/11/25 09:00 05/11/25 09:11 Furosemide 20 Mg Tablet FEED TUBE 20 mg On Hold: 05/11/25 15:43 DAILY OLENA Administration Glucagon 1 mg 05/02/25 20:20 Glucagon For Inj 1 Mg Vial IM PRN PRN Hypoglycemia Protocol Glucose 15 gm 05/02/25 20:20 Glucose Oral Gel 15 Gm Of Glucse In 37.5 Gm Tube PO PRN PRN Hypoglycemia Protocol Dextrose 1,000 mls @ 100 mls/hr 05/02/25 20:20 Dextrose 5% 1,000 Ml IVPB PRN PRN Hypoglycemia Protocol Sodium Chloride 1,000 mls @ 75 mls/hr 05/11/25 15:45 05/14/25 15:30 Normal Saline Iv IV CONT 75 mls/hr .[id number] OLENA Administration Insulin Aspart 2 - 5 units 05/03/25 00:00 05/14/25 13:02 Insulin Aspart (*Bkc) 100 Units/Ml SUB-Q Not Given Q6HR OLENA Protocol Levetiracetam 500 mg 05/13/25 21:00 05/14/25 08:49 Levetiracetam Oral Pallavi 500 Mg/5 Ml Udc PO 500 mg Q12HR OLENA Administration Lidocaine 1 patch 05/08/25 09:00 05/14/25 08:49 Lidocaine 5% Patch TRANSDERM 1 patch DAILY OLENA Administration Octreotide Acetate 100 mcg 05/14/25 14:00 05/14/25 15:26 Octreotide Acetate 100 Mcg/Ml Vial SUB-Q 100 mcg Q8HR OLENA Administration Simvastatin 40 mg 05/03/25 09:00 05/14/25 08:48 Simvastatin 20 Mg Tablet FEED TUBE 40 mg DAILY OLENA Administration Radiology Results: ITS Impressions Chest CT 05/03/25 09:17 IMPRESSION: 1. Diffuse lung disease, likely a combination of moderate pulmonary edema and pneumonia. 2. Moderate-sized pleural effusions. 3. Ascites. Renal Ultrasound 05/03/25 11:21 IMPRESSION: 1. No hydronephrosis. Modified Barium Swallow 05/04/25 13:53 IMPRESSION: Pharyngeal dysphagia with laryngeal penetration without aspiration. Please correlate with speech pathologist findings and specific feeding recommendations. Knee X-Ray 05/08/25 14:06 IMPRESSION: 1. Tricompartmental degenerative changes; calcification in the menisci could be associated with pseudogout or CPPD. 2. Extensive vascular calcification may be associated with peripheral artery disease. Chest X-Ray 05/09/25 13:06 IMPRESSION: 1. Interstitial pulmonary edema with pleural effusions. 2. Superimposed airspace disease not excluded. Labs Labs: Laboratory Results - last 24 hr 05/13/25 05/13/25 05/13/25 06:14 08:40 18:18 WBC RBC Hgb Hct MCV MCH MCHC RDW Plt Count MPV Immature Gran % (Auto) Neut % (Auto) Lymph % (Auto) [place] % (Auto) Eos % (Auto) Baso % (Auto) Lymph # (Auto) [place] # (Auto) Eos # (Auto) Baso # (Auto) Abs Immat Gran (auto) Absolute Neuts (auto) Absolute Nucleated RBC Nucleated RBC % Sodium Potassium Chloride Carbon Dioxide Anion Gap BUN Creatinine Estim Creat Clear Calc Estimated GFR Glucose POC Capillary Glucose 187 H Calcium Phosphorus Magnesium Erythropoietin 295.5 H Total Bilirubin AST ALT Alkaline Phosphatase Total Protein Albumin Crossmatch See Detail 05/14/25 05/14/25 05/14/25 00:55 06:53 06:54 WBC 12.6 H RBC 3.10 L Hgb 9.2 L Hct 27.3 L MCV 88.1 D MCH 29.7 D MCHC 33.7 RDW 16.4 H Plt Count 259 MPV 9.9 Immature Gran % (Auto) 0.6 H Neut % (Auto) 76.4 H Lymph % (Auto) 7.8 L [place] % (Auto) 9.9 H Eos % (Auto) 4.9 H Baso % (Auto) 0.4 Lymph # (Auto) 0.99 [place] # (Auto) 1.3 H Eos # (Auto) 0.6 H Baso # (Auto) 0.1 Abs Immat Gran (auto) 0.08 H Absolute Neuts (auto) 9.6 H Absolute Nucleated RBC 0.000 Nucleated RBC % 0.0 Sodium 135 L Potassium 3.0 L Chloride 105 Carbon Dioxide 19 L Anion Gap 11 BUN 120 H* Creatinine 2.63 H Estim Creat Clear Calc 16 Estimated GFR 23 L Glucose 173 H POC Capillary Glucose 175 H Calcium 8.5 Phosphorus 3.6 Magnesium 2.1 Erythropoietin Total Bilirubin 0.4 AST 66 H ALT 80 H Alkaline Phosphatase 221 H Total Protein 6.3 Albumin 2.8 L Crossmatch 05/14/25 11:46 WBC RBC Hgb Hct MCV MCH MCHC RDW Plt Count MPV Immature Gran % (Auto) Neut % (Auto) Lymph % (Auto) [place] % (Auto) Eos % (Auto) Baso % (Auto) Lymph # (Auto) [place] # (Auto) Eos # (Auto) Baso # (Auto) Abs Immat Gran (auto) Absolute Neuts (auto) Absolute Nucleated RBC Nucleated RBC % Sodium Potassium Chloride Carbon Dioxide Anion Gap BUN Creatinine Estim Creat Clear Calc Estimated GFR Glucose POC Capillary Glucose 185 H Calcium Phosphorus Magnesium Erythropoietin Total Bilirubin AST ALT Alkaline Phosphatase Total Protein Albumin Crossmatch
--- NOTE | 2025-05-14 17:13 | P.CONNEU_ITS ---
Assessment and Plan Assessment and plan (1) Seizure: Code(s): R56.9 - Unspecified convulsions Status: Chronic Assessment and Plan: It was noted that he has a Keppra level of 78 which is very high although he does not seem to be having any significant side effects from this. I will suggest to reduce the dose to 500 mg twice a day. We can repeat the level after 2-3 weeks time. He was advised to see a neurosurgeon in view of the ordered tried fracture on the previous admission. I shall be glad to see him in my office regarding seizure management. (2) Type II fracture of odontoid process: Qualifiers: Encounter type: subsequent encounter Fracture type: closed Fracture alignment: nondisplaced Fracture healing: with routine healing Qualified Code(s): S12.112D - Nondisplaced Type II dens fracture, subsequent encounter for fracture with routine healing Code(s): S12.110A - Anterior displaced Type II dens fracture, initial encounter for closed fracture Status: Chronic (3) Thalamic stroke: Code(s): I63.81 - Other cerebral infarction due to occlusion or stenosis of small artery Status: Acute (4) Alcohol abuse: Code(s): F10.10 - Alcohol abuse, uncomplicated Status: Acute (5) Atrial fibrillation: Qualifiers: Atrial fibrillation type: unspecified chronic Qualified Code(s): I48.20 - Chronic atrial fibrillation, unspecified Code(s): I48.91 - Unspecified atrial fibrillation Status: Chronic (6) Diabetes mellitus: Qualifiers: Diabetes mellitus type: type 2 Diabetes mellitus assistant terminal manager insulin use: without assistant terminal manager use Diabetes mellitus complication status: with kidney complications Diabetes mellitus complication detail: with chronic kidney disease Chronic kidney disease stage: stage 4 (severe) Qualified Code(s): E 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; N18.4 - Chronic kidney disease, stage 4 (severe) Code(s): E11.9 - Type 2 diabetes mellitus without complications Status: Chronic (7) AVM (arteriovenous malformation) of duodenum, acquired with hemorrhage: Code(s): K31.811 - Angiodysplasia of stomach and duodenum with bleeding Status: Acute (8) GI bleed: Qualifiers: GI bleed type/associated pathology: melena Qualified Code(s): K92.1 - Melena Code(s): K92.2 - Gastrointestinal hemorrhage, unspecified Status: Acute (9) Acute kidney injury superimposed on CKD: Code(s): N17.9 - Acute kidney failure, unspecified; N18.9 - Chronic kidney disease, unspecified Status: Acute Consult date: 05/14/25 HPI: Shantanu Burleson is a 84 year old male With history of seizure disorder and trauma to the cervical spine leading to type 2 fracture of the odontoid process was seen for an evaluation. I saw him previously when he was hospitalized and was started on Keppra 750 mg twice a day. I believe that his most recent blood level is high at 78.2 with reference range of 10-40 mcg per mL. Denies any nausea vomiting or sleepiness. He is here on account of the various medical problems including anemia and GI bleed and is being seen by the fine sander for AV malformation in the duodenum. He also has acute on chronic renal disease and diabetes mellitus. He was in rehab since discharge from here and was admitted to [facility] on 05/02 2025. MRI of the brain was performed on 04/13/2025 which shows white matter changes and old infarct in the left thalamic area. He has not had any seizures since I saw him last time. Review of Systems 2 Review of Systems: All systems reviewed & are unremarkable except as noted in HPI and below PMFSH Past Medical History Medical History (Updated 05/10/25 @ 19:50 by Paola Adams MD) AVM (arteriovenous malformation) of duodenum, acquired with hemorrhage Acute on chronic anemia Melena Atherosclerosis of aorta Atrial fibrillation HTN (hypertension) Alcohol abuse Malignant neoplasm of prostate Dysphonia Chronic bilateral low back pain Encephalopathy Mixed hyperlipidemia NANDINI (acute kidney injury) Pneumonia Fluid overload Epistaxis r nares no bleeding site seen Gout, unspecified Gout CKD (chronic kidney disease) stage 4, GFR 15-29 ml/min Osteoarthrosis, localized, primary, involving lower leg Osteoarthrosis, localized, primary, involving hand Lumbar stenosis Anemia in chronic kidney disease Diabetes mellitus currently diet controlled, A1C 6.1% on 02/27/25 Surgical History Surgical History H/O cataract extraction History of appendectomy H/O laminectomy C3-C4 History of carpal tunnel release History of repair of rotator cuff H/O arthroscopy of knee Family History Family History Mother Hypertension, Onset Age: 72 Father Malignant neoplasm of prostate, Onset Age: 76 Social History Social History Social History: Caffeine- coffee Smoking packs per day: 1 Smoking cigarettes per day: 20.0 Years smoked: 40 Smoking pack-years: 40.00 Smoking status: Former smoker Tobacco type: cigarettes Second hand tobacco smoke exposure: No Additional smoking assessment comments: Quit 40 years ago Alcohol intake: current Drinks per week: 10 Substance use: never Substance use type: does not use Do You Feel Safe in your Home?: Yes Lack of Transportation: No Lack of Food: Never True Current Housing: I Have Housing Concerned About Future Housing: No Difficulty Paying Gas/Electric Bills: No Difficulty Paying for Meds: No Currently Unemployed: No Education: Trade/Vocational Certificate Difficulty w/ Childcare or Family Care: No Gender identity (if verbalized by the patient): Male Spiritual care concerns: No Meds Home Medications and Allergies Home Medications ?Medication ?Instructions ?Recorded ?Confirmed ?Type acetaminophen 160 mg/5 mL oral 650 mg (20.3125 mL) fee ding tube 04/24/25 05/02/25 Rx suspension (Nortemp) Q4H PRN Mild Pain (1-3) Or F ever #30 mL amlodipine 5 mg tablet (Norvasc) 5 mg feeding tube RICK LY #30 tabs 04/24/25 05/02/25 Rx apixaban 2.5 mg tablet (Eliquis) 2.5 mg feeding tube Q 12HR #60 tabs 04/24/25 05/02/25 Rx famotidine 20 mg tablet (Pepcid) 10 mg (1/2 x 20 mg) f eeding tube 04/24/25 05/02/25 Rx EVERY OTHER DAY #30 tabs febuxostat 80 mg tablet 80 mg feeding tube DAILY #90 tabs 04/24/25 05/02/25 Rx hydralazine 25 mg tablet 25 mg feeding tube Q8H #90 t abs 04/24/25 05/02/25 Rx levetiracetam 100 mg/mL oral 750 mg (7.5 mL) feeding t ube Q12HR 04/24/25 05/02/25 Rx solution #473 mL labetalol 100 mg tablet 100 mg feeding tube Q12H 02/1605/02/25 History furosemide 40 mg tablet See Rx Instructions .Route 1 07/11/24 Rx .COMPLEX #90 tabs simvastatin 40 mg tablet See Rx Instructions .Route 1 07/11/24 Rx .COMPLEX #90 tabs Allergies Allergy/AdvReac Type Severity Reaction Status Date / Time allopurinol Allergy Unknown Skin Verified 05/02/25 18:36 Reaction diclofenac Allergy Unknown Pt doesn't Verified 05/02/25 18:36 know doxycycline Allergy Unknown hands Verified 05/02/25 18:36 probenecid Allergy Unknown Skin Verified 05/02/25 18:36 Reaction Vital Signs Vital Signs - 24 hr 05/13/25 17:55 05/13/25 18:55 05/13/25 19:23 Temperature 98.4 F 98.6 F 98.6 F Pulse Rate 79 81 81 Respiratory Rate 20 16 16 Blood Pressure 158/63 H 162/70 H 162/70 H Pulse Oximetry 100 99 Oxygen Delivery 05/13/25 19:29 05/13/25 20:00 05/14/25 05:52 Temperature 98.7 F 98 F Pulse Rate 81 71 Respiratory Rate 16 16 Blood Pressure 158/88 H 157/66 H Pulse Oximetry 100 97 Oxygen Delivery Room Air 05/14/25 08:00 05/14/25 14:00 Temperature 97.5 F L Pulse Rate 78 Respiratory Rate 18 Blood Pressure 152/64 H Pulse Oximetry 100 Oxygen Delivery Room Air Exam 2 Const: General: cooperative and no acute distress HENMT: Head: atraumatic Eyes: Alignment and Position: alignment normal and position normal EOM: E OMs intact bilaterally Neck: Neck: normal visual inspection and supple Resp: Effort & Inspection: normal respiratory effort Skin: General skin exam: normal color Neuro: Cranial nerves: Yes CN's II-XII intact bilaterally, Yes facial symmetry and Yes Midline tongue present Cognition (Neuro): normal cognition Speech: normal speech Sensory Exam: normal sensation ( Decreased vibration sense in both lower limbs) Coordination: [id number] test normal and Normal rapid alternating movements of the distal upper extremity present (Neuro) Other: deep tendon reflexes decreased at both ankles. No asymmetry reflexes noted. Extrem: General: normal to inspection Psych: Speech and movement: Normal speech and movement present Affect: n ormal affect Thought content: Yes Normal thought content present Results Labs 05/14/25 06:53 05/14/25 06:54 Labs: Short CBC 05/14/25 Range/Units 06:53 WBC 12.6 H (4.5-10.0) K/mm3 Hgb 9.2 L (14.0-18.0) g/dL Hct 27.3 L (42.0-52.0) % Plt Count 259 (150-375) k/mm3 [facility] 05/14/25 06:54 Sodium 135 L Potassium 3.0 L Chloride 105 Carbon Dioxide 19 L BUN 120 H* Creatinine 2.63 H Glucose 173 H Calcium 8.5 Liver Function 05/14/25 Range/Units 06:54 Total Bilirubin 0.4 (0.2-1.3) mg/dL AST 66 H (17-59) U/L ALT 80 H (6-50) U/L Alkaline Phosphatase 221 H (38-126) U/L Albumin 2.8 L (3.5-5.1) g/dL
[2025-05-14] MEDS: levETIRAcetam ORAL SOL 500 MG/5 ML UDC FEED TUBE (21:03)
[2025-05-14 22:00] VITALS: BP 164/61; PULSE 88; RESP 18; TEMP 37.2; O2SAT 97
[2025-05-15] MEDS: OCTREOTIDE ACETATE 100 MCG/ML VIAL SUB-Q ×2 (05:24→14:24)
[2025-05-15] MEDS: INSULIN ASPART (*BKC) 100 UNITS/ML SUB-Q (05:24)
[2025-05-15 05:27] VITALS: BP 146/63; PULSE 54; RESP 20; TEMP 37.1; O2SAT 97
[2025-05-15 06:55] LABS: Hematocrit 27.7 % (42.0-52.0); Hemoglobin 9.4 g/dL (14.0-18.0); Immature Granulocyte Percent A 0.7 % (0-0.5); Lymphocytes Absolute Auto 0.97 K/mm3 (0.9-3.2); Mean Corpuscular HGB Conc 33.9 g/dl (32-36); Mean Corpuscular Hemoglobin 30.2 pg (26-34); Mean Corpuscular Volume 89.1 fl (80-100); Nucleated Red Blood Cells Absolute Auto 0.000 K/mm3 (0.0-0.012); Nucleated Red Blood Cells Perc 0.0 % (0.0-0.2); Platelet Count Result 302 k/mm3 (150-375); Red Blood Count 3.11 M/mm3 (4.6-6.20); White Blood Count 13.1 K/mm3 (4.5-10.0)
[2025-05-15 07:20] LABS: Alanine Aminotransferase 73 U/L (6-50); Albumin Level 2.7 g/dL (3.5-5.1); Alkaline Phosphatase 220 U/L (38-126); Anion Gap 12 mmol/L (4-12); Aspartate Amino Transferase 61 U/L (17-59); Bilirubin,Total 0.5 mg/dL (0.2-1.3); Blood Urea Nitrogen 120 mg/dL (9-20); Calcium 8.7 mg/dL (8.4-10.2); Carbon Dioxide 17 mmol/L (22-30); Chloride 107 mmol/L (98-107); Estimated CRCL calculation 16 ml/min; Estimated Glomerular Filt Rate 23; Glucose 181 mg/dL (65-110); Potassium 3.2 mmol/L (3.4-5.0); Sodium 136 mmol/L (137-145); Total Protein 6.2 g/dL (6.3-8.2)
[2025-05-15] MEDS: POTASSIUM CHLORIDE 20 MEQ PACKET (FOR LIQUID) FEED TUBE (09:18)
[2025-05-15] MEDS: LIDOCAINE 5% PATCH 1 PATCH TRANSDERM (09:19)
[2025-05-15] MEDS: SIMVASTATIN 20 MG TABLET 40 MG FEED TUBE (09:19)
[2025-05-15] MEDS: levETIRAcetam ORAL SOL 500 MG/5 ML UDC FEED TUBE (09:19)
[2025-05-15] MEDS: FEBUXOSTAT 40 MG TABLET FEED TUBE (09:19)
--- NOTE | 2025-05-15 09:50 | WPDONCPN ---
Subjective Date/time seen: 05/15/25 09:50 Interval history: Interval history: 05/11/25: Shantanu Burleson is a 84 year old male with history of alcoholism, CKD stage IV, a fib on anticoagualtion, type II DM and anemia of chronic disease and who is now admitted to the hospital with SOB x 2 days, melena and anemia. 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 Despite transfusions that raised his hemoglobin 4.6 to 9.1, his current Hb is trending down at 7.4, and he has had a recurrence of dark stools. This recurrent GI bleeding, common with his advanced renal failure, suggests the likely presence of additional, more distal AVMs. Given the recent EGD and ablation of the visible AVMs, there is no indication for immediate repeat endoscopy; instead, a Video Capsule Endoscopy will be scheduled post-discharge to evaluate for distal sources... Labs: (05/02/25): H/H 6.8/20.5 (05/03/25): WBC 10.2, Hgb 8.5, Hct 25.6, Plt 328 --> H/H 7.9/23.3 (05/04/25); H/H 8.5/25.6 (05/11/25): WBC 11.4, Hgb 7.1, Hct 27.0, Plt 302, iron 34, TIBC 157, retic 1.43. Antonio (D+I) neg. 05/12/25: Patient doing about the same. Neck brace on. present today. Patient was begun on Octreotide 50 mcg sc tid yesterday and if tolerated after 24 hours, will increase to 100 mcg sc tid. If this is tolerated, patient would be candidate for Octreotide LAR once monthly through the office. He mentions no adverse events.No fevers or chills. Denies SOB and CP. No rash. Labs: (05/12/25): WBC 12.8, Hgb 7.0, Hct 21.4, Plt 292, BUN 131, crea 3.18, Total bili 0.5. 05/13/25: Patient feeling about the same. No SOB or CP. Patient being fed through PEG tube. Continue to wear neck brace for C2 fracture; reports that her needs to wear it for 6 weeks or until C2 fracture heals. Hgb dropped to 6.5 today. Currently receiving Octreotide 50 mcg tid; dosing per GI. Labs: (05/13/25): WBC 11.9, Hgb 6.5, Hct 20.2, Plt 266, BUN 124, crea 2.93, AST 135, ALT 141, AP 272, Alb 2.9 05/14/25: CBC repeated yesterday but results not called to me. Labs: (05/13/25): WBC 12.4, Hgb 6.5, Hct 19.6, Plt 249.4 Labs from this morning pending. 05/15/25: Patient doing about the same. present. He is now receiving the target dose of Octreotide 100 mcg sc tid. S/P 2 units PRBCs 05/13/25 Labs: (05/14/25): WBC 12.6, Hgb 9.2, Hct 27.3, Plt 259 (05/15/25): WBC 13.1, Hgb 9.4, Hct 27.7, Plt 302 Plan: Continue Octreotide 100 mcg tid - Hgb has not dropped from yesterday. Plan to ultimately change to Octreotide LAR monthly. Given patient's poor kidney function, he may benefit from procrit if epo level < 500. Will draw lab. Labs pending - haptoglobin, ferritin, erythropoetin Recheck CBC. If repeat Hgb is <7, recommend transfusion. Supplement iron Capsule endoscopy planned after discharge Will plan f/u with Dr. Arguello 2-3 weeks post discharge. Review of Systems Constitutional Comments: Generally weak, unchanged ENT Comments: Continues wearing neck brace Exam Const: Other: Ill appearing frail male HENMT: Other: Wearing neck brace. Eyes: Other: Anicteric sclerae Resp: Other: No wheezing Objective Data Vital Signs Vital Signs: Vital Signs - 24 hr 05/14/25 14:00 05/14/25 20:53 05/14/25 22:00 Temperature 36.4 C L 37.2 C Pulse Rate 78 88 Respiratory Rate 18 18 Blood Pressure 152/64 H 164/61 H Pulse Oximetry 100 97 Oxygen Delivery Room Air 05/15/25 05:27 Temperature 37.1 C Pulse Rate 54 L Respiratory Rate 20 Blood Pressure 146/63 H Pulse Oximetry 97 Oxygen Delivery Intake/Output Intake/Output: Intake & Output 05/12/25 05/13/25 05/14/25 05/15/25 23:59 23:59 23:59 23:59 Intake Total 2701.3 2463 865 948 Output Total 900 1650 800 Balance 1801.3 813 65 948 Meds/Results Medications: Active Medications Generic Name Dose Route Start Last Admin Trade Name Freq PRN Reason Stop Dose Admin Acetaminophen 650 mg 05/02/25 20:49 05/09/25 20:21 Acetaminophen Elixir 325 Mg/10.15 Ml Udc FEED TUBE 650 mg Q4H PRN Administration Mild Pain (1-3) or Fever Amlodipine Besylate 5 mg 05/05/25 17:25 05/15/25 09:19 Amlodipine Besylate 5 Mg Tablet FEED TUBE 5 mg DAILY OLENA Administration Dextrose 12.5 gm 05/02/25 20:20 Dextrose 50% 25 Gm/50 Ml Syringe IV PUSH PRN PRN Hypoglycemia Protocol Epoetin Donte-epbx 10,000 units 05/12/25 12:10 05/14/25 13:07 Epoetin Donte-Epbx 10,000 Units/Ml Vial SUB-Q 10,000 units TUTHSA@09 OLENA Administration Febuxostat 40 mg 05/06/25 09:00 05/15/25 09:19 Febuxostat 40 Mg Tablet FEED TUBE 40 mg DAILY OLENA Administration Furosemide 20 mg 05/11/25 09:00 05/11/25 09:11 Furosemide 20 Mg Tablet FEED TUBE 20 mg On Hold: 05/11/25 15:43 DAILY OLENA Administration Glucagon 1 mg 05/02/25 20:20 Glucagon For Inj 1 Mg Vial IM PRN PRN Hypoglycemia Protocol Glucose 15 gm 05/02/25 20:20 Glucose Oral Gel 15 Gm Of Glucse In 37.5 Gm Tube PO PRN PRN Hypoglycemia Protocol Dextrose 1,000 mls @ 100 mls/hr 05/02/25 20:20 Dextrose 5% 1,000 Ml IVPB PRN PRN Hypoglycemia Protocol Insulin Aspart 2 - 5 units 05/03/25 00:00 05/15/25 05:24 Insulin Aspart (*Bkc) 100 Units/Ml SUB-Q 2 units Q6HR OLENA Administration Protocol Levetiracetam 500 mg 05/14/25 21:00 05/15/25 09:19 Levetiracetam Oral Pallavi 500 Mg/5 Ml Udc FEED TUBE 500 mg Q12HR OLENA Administration Lidocaine 1 patch 05/08/25 09:00 05/15/25 09:19 Lidocaine 5% Patch TRANSDERM 1 patch DAILY OLENA Administration Octreotide Acetate 100 mcg 05/14/25 14:00 05/15/25 05:24 Octreotide Acetate 100 Mcg/Ml Vial SUB-Q 100 mcg Q8HR OLENA Administration Simvastatin 40 mg 05/03/25 09:00 05/15/25 09:19 Simvastatin 20 Mg Tablet FEED TUBE 40 mg DAILY OLENA Administration Radiology Results: ITS Impressions Chest CT 05/03/25 09:17 IMPRESSION: 1. Diffuse lung disease, likely a combination of moderate pulmonary edema and pneumonia. 2. Moderate-sized pleural effusions. 3. Ascites. Renal Ultrasound 05/03/25 11:21 IMPRESSION: 1. No hydronephrosis. Modified Barium Swallow 05/04/25 13:53 IMPRESSION: Pharyngeal dysphagia with laryngeal penetration without aspiration. Please correlate with speech pathologist findings and specific feeding recommendations. Knee X-Ray 05/08/25 14:06 IMPRESSION: 1. Tricompartmental degenerative changes; calcification in the menisci could be associated with pseudogout or CPPD. 2. Extensive vascular calcification may be associated with peripheral artery disease. Chest X-Ray 05/15/25 08:00 IMPRESSION: 1. Patchy areas of pneumonia or pulmonary edema right worse than left. Labs Labs: Laboratory Results - last 24 hr 05/13/25 05/14/25 05/14/25 06:14 11:46 17:10 WBC RBC Hgb Hct MCV MCH MCHC RDW Plt Count MPV Immature Gran % (Auto) Neut % (Auto) Lymph % (Auto) Barnes % (Auto) Eos % (Auto) Baso % (Auto) Lymph # (Auto) Barnes # (Auto) Eos # (Auto) Baso # (Auto) Abs Immat Gran (auto) Absolute Neuts (auto) Absolute Nucleated RBC Nucleated RBC % Sodium Potassium Chloride Carbon Dioxide Anion Gap BUN Creatinine Estim Creat Clear Calc Estimated GFR Glucose POC Capillary Glucose 185 H 184 H Calcium Erythropoietin 295.5 H Total Bilirubin AST ALT Alkaline Phosphatase Total Protein Albumin 05/15/25 05/15/25 05/15/25 00:12 05:21 06:38 WBC 13.1 H RBC 3.11 L Hgb 9.4 L Hct 27.7 L MCV 89.1 MCH 30.2 MCHC 33.9 RDW 16.2 H Plt Count 302 MPV 9.9 Immature Gran % (Auto) 0.7 H Neut % (Auto) 79.5 H Lymph % (Auto) 7.4 L Barnes % (Auto) 9.6 H Eos % (Auto) 2.5 Baso % (Auto) 0.3 Lymph # (Auto) 0.97 Barnes # (Auto) 1.3 H Eos # (Auto) 0.3 Baso # (Auto) 0.0 Abs Immat Gran (auto) 0.09 H Absolute Neuts (auto) 10.4 H Absolute Nucleated RBC 0.000 Nucleated RBC % 0.0 Sodium 136 L Potassium 3.2 L Chloride 107 Carbon Dioxide 17 L Anion Gap 12 BUN 120 H* Creatinine 2.66 H Estim Creat Clear Calc 16 Estimated GFR 23 L Glucose 181 H POC Capillary Glucose 185 H 216 H Calcium 8.7 Erythropoietin Total Bilirubin 0.5 AST 61 H ALT 73 H Alkaline Phosphatase 220 H Total Protein 6.2 L Albumin 2.7 L
--- NOTE | 2025-05-15 10:20 | P.PNNP_ITS ---
Progress Note: A&P Assessment and Plan (1) Acute kidney injury: Code(s): N17.9 - Acute kidney failure, unspecified Status: Acute Assessment and Plan: * slow improvement if not stable * suspect due a few issues: * prerenal factors * severe anemia * pneumonia * other * evaluation to date noted: * renal u/s without obstruction * urine electrolytes are prerenal * UA without evidence of infection * proteinuria noted * CPK low * still making good urine output * possible overdiuresis(?) * however recent CXR with evidence of congestion/fluid * azotemia/elevated BUN noted -- likely due to #3; something else contributing(?) * holding diuretics at this time * s/p trial of IVFs * follow trend of repeat labs and UOP (2) Stage 4 chronic kidney disease: Code(s): N18.4 - Chronic kidney disease, stage 4 (severe) Status: Chronic Assessment and Plan: * fluctuates to extremes at baseline... * runs anywhere from 2.5 - 3.5mg/dL * in the last 3 - 4 months, creatinine has been running around 2.5 - 3.0mg/dl * due to hypertension, diabetes, vascular disease, and age related change along chronic diuretic therapy to maintain volume status (3) Azotemia: Code(s): R79.89 - Other specified abnormal findings of blood chemistry Status: Acute Assessment and Plan: * worsening in the last few days * suspect due to ongoing slow GI bleeding * another potential etiology(?) (4) GI bleed: Qualifiers: GI bleed type/associated pathology: melena Qualified Code(s): K92.1 - Melena Code(s): K92.2 - Gastrointestinal hemorrhage, unspecified Status: Acute Assessment and Plan: * as noted by anemia and black tarry stools on admission * s/p 5 units of PRBC transfusion this admission * s/p EGD on 05/04 with findings noted: * 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 with small amount of hematin in the lumen * s/p cauterization with APC * GI recommendations noted * holding Eliquis * on PPI * suspect more AVMs present causing slow oozing of blood - noted plans for outpatient capsule endoscopy * suspected etiology of elevated BUN/azotemia * follow trend of H/H (5) Anemia: Code(s): D64.9 - Anemia, unspecified Status: Acute Assessment and Plan: * partly related to NANDINI, CKD, and complicated by #4 * follow trend of H/H * on THEO/Epogen * Hematology recommendations noted: * on octreotide (6) Left knee pain: Code(s): M25.562 - Pain in left knee Status: Acute Assessment and Plan: * slow improvement * X-rays noted * pain control as tolerated (7) Shortness of breath: Code(s): R06.02 - Shortness of breath Status: Acute Assessment and Plan: * clinically seems better if not resolved * CT imaging noted: * moderate pulmonary edema * pneumonia * pleural effusions * ascites * viral testing for influenza/RSV/COVID negative * remains on oral diuretic therapy * off oxygen at this time * follow respiratory status (8) Pneumonia: Code(s): J18.9 - Pneumonia, unspecified organism Status: Acute Assessment and Plan: * as noted by admission imaging * follow culture data (negative to date) * completed course of antibiotics (9) Atrial fibrillation: Qualifiers: Atrial fibrillation type: unspecified chronic Qualified Code(s): I48.20 - Chronic atrial fibrillation, unspecified Code(s): I48.91 - Unspecified atrial fibrillation Status: Chronic Assessment and Plan: * rate control strategy * Eliquis on hold (see #4) (10) Hyponatremia: Code(s): E87.1 - Hypo-osmolality and hyponatremia Status: Acute Assessment and Plan: * improving if not stable * likely related to NANDINI on CKD * follow trend (11) Dysphagia: Qualifiers: Dysphagia type: unspecified Qualified Code(s): R13.10 - Dysphagia, unspecified Code(s): R13.10 - Dysphagia, unspecified Status: Chronic Assessment and Plan: * s/p PEG tube placement * speech therapy recommendations and MBS noted * on tube feedings (12) Hypertension: Code(s): I10 - Essential (primary) hypertension Status: Chronic Assessment and Plan: * reasonable control * follow trend of hemodynamics (13) Diabetes mellitus: Qualifiers: Diabetes mellitus type: type 2 Diabetes mellitus long-term insulin use: without long-term use Diabetes mellitus complication status: with kidney complications Diabetes mellitus complication detail: with chronic kidney disease Chronic kidney disease stage: stage 4 (severe) Qualified Code(s): E 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; N18.4 - Chronic kidney disease, stage 4 (severe) Code(s): E11.9 - Type 2 diabetes mellitus without complications Status: Chronic Assessment and Plan: * follow accu-cheks * glycemic control per hospitalist (14) Type II fracture of odontoid process: Qualifiers: Encounter type: subsequent encounter Fracture type: closed Fracture alignment: nondisplaced Fracture healing: with routine healing Qualified Code(s): S12.112D - Nondisplaced Type II dens fracture, subsequent encounter for fracture with routine healing Code(s): S12.110A - Anterior displaced Type II dens fracture, initial encounter for closed fracture Status: Chronic Assessment and Plan: * as noted on previous imaging * conservative therapy per Neurosurgery * Lindsay collar in place * ongoing PT/OT as tolerated Will continue to follow. L Subjective Date/time seen: 05/15/25 10:20 Interval history: Follow-up for acute kidney injury/acute renal failure on chronic kidney disease. H/H relatively stable since last PRBC transfusion; no apparent distress noted at the time of my visit; no issues/events overnight or earlier this morning; at bedside and situation discussed. Exam 2 Narrative: General: elderly but WD/WN male in NAD; Lindsay collar in place Heart: normal S1 and S2; no rub Lungs: clear anteriorly Abdomen: soft, nontender, nondistended, positive bowel sounds Extremities: no cyanosis or clubbing; trace edema Skin: no nodules Objective Data Vital Signs Vital Signs: Vital Signs Temp Pulse Resp BP Pulse Ox O2 Del Method 05/15/25 08:00 Room Air 05/15/25 05:27 98.8 F 54 L 20 146/63 H 97 05/14/25 22:00 98.9 F 88 18 164/61 H 97 05/14/25 20:53 Room Air 05/14/25 14:00 97.5 F L 78 18 152/64 H 100 Intake/Output Intake/Output: Intake & Output 05/12/25 05/13/25 05/14/25 05/15/25 23:59 23:59 23:59 23:59 Intake Total 2701.3 2463 865 948 Output Total 900 1650 800 Balance 1801.3 813 65 948 Meds/Results Medications: Active Medications Generic Name Dose Route Start Last Admin Trade Name Freq PRN Reason Stop Dose Admin Acetaminophen 650 mg 05/02/25 20:49 05/09/25 20:21 Acetaminophen Elixir 325 Mg/10.15 Ml Udc FEED TUBE 650 mg Q4H PRN Administration Mild Pain (1-3) or Fever Amlodipine Besylate 5 mg 05/05/25 17:25 05/15/25 09:19 Amlodipine Besylate 5 Mg Tablet FEED TUBE 5 mg DAILY OLENA Administration Dextrose 12.5 gm 05/02/25 20:20 Dextrose 50% 25 Gm/50 Ml Syringe IV PUSH PRN PRN Hypoglycemia Protocol Epoetin Donte-epbx 10,000 units 05/12/25 12:10 05/14/25 13:07 Epoetin Donte-Epbx 10,000 Units/Ml Vial SUB-Q 10,000 units TUTHSA@09 OLENA Administration Febuxostat 40 mg 05/06/25 09:00 05/15/25 09:19 Febuxostat 40 Mg Tablet FEED TUBE 40 mg DAILY OLENA Administration Furosemide 20 mg 05/11/25 09:00 05/11/25 09:11 Furosemide 20 Mg Tablet FEED TUBE 20 mg On Hold: 05/11/25 15:43 DAILY OLENA Administration Glucagon 1 mg 05/02/25 20:20 Glucagon For Inj 1 Mg Vial IM PRN PRN Hypoglycemia Protocol Glucose 15 gm 05/02/25 20:20 Glucose Oral Gel 15 Gm Of Glucse In 37.5 Gm Tube PO PRN PRN Hypoglycemia Protocol Dextrose 1,000 mls @ 100 mls/hr 05/02/25 20:20 Dextrose 5% 1,000 Ml IVPB PRN PRN Hypoglycemia Protocol Insulin Aspart 2 - 5 units 05/03/25 00:00 05/15/25 05:24 Insulin Aspart (*Bkc) 100 Units/Ml SUB-Q 2 units Q6HR OLENA Administration Protocol Levetiracetam 500 mg 05/14/25 21:00 05/15/25 09:19 Levetiracetam Oral Pallavi 500 Mg/5 Ml Udc FEED TUBE 500 mg Q12HR OLENA Administration Lidocaine 1 patch 05/08/25 09:00 05/15/25 09:19 Lidocaine 5% Patch TRANSDERM 1 patch DAILY OLENA Administration Octreotide Acetate 100 mcg 05/14/25 14:00 05/15/25 05:24 Octreotide Acetate 100 Mcg/Ml Vial SUB-Q 100 mcg Q8HR OLENA Administration Simvastatin 40 mg 05/03/25 09:00 05/15/25 09:19 Simvastatin 20 Mg Tablet FEED TUBE 40 mg DAILY OLENA Administration Radiology Results: ITS Impressions Chest CT 05/03/25 09:17 IMPRESSION: 1. Diffuse lung disease, likely a combination of moderate pulmonary edema and pneumonia. 2. Moderate-sized pleural effusions. 3. Ascites. Renal Ultrasound 05/03/25 11:21 IMPRESSION: 1. No hydronephrosis. Modified Barium Swallow 05/04/25 13:53 IMPRESSION: Pharyngeal dysphagia with laryngeal penetration without aspiration. Please correlate with speech pathologist findings and specific feeding recommendations. Knee X-Ray 05/08/25 14:06 IMPRESSION: 1. Tricompartmental degenerative changes; calcification in the menisci could be associated with pseudogout or CPPD. 2. Extensive vascular calcification may be associated with peripheral artery disease. Chest X-Ray 05/15/25 08:00 IMPRESSION: 1. Patchy areas of pneumonia or pulmonary edema right worse than left. Labs Labs: Laboratory Tests 05/15/25 06:38 05/15/25 06:38 Calcium 8.7 Total Bilirubin 0.5 AST 61 H ALT 73 H Alkaline Phosphatase 220 H Total Protein 6.2 L Albumin 2.7 L Microbiology 05/08/25 15:20 Blood Blood Culture - Final 05/08/25 15:31 Blood Blood Culture - Final
--- NOTE | 2025-05-15 12:30 | PCNFU ---
Nutrition Follow-Up Complete: Inadequate energy intake related to NPO status as evidenced by current diet orders Meet estimated needs - Goal is being met with tube feeding. Continue with same goal Goal: Pt current nutrition is Nepro @ 40 ml/g per PEG tube. 100 ml flushes q 4 hours. Nutrition recommendation: No new recommendations. Continue current tube feeding orders. Last recorded weight is 61.8 kg. Bowel Motility: BM +2 05/13 Labs Reviewed: Hbg 9.4, Hct 27.7, Alb 2.7, Na 136, K+ .2, BUN 120, Cre 2.66, Glu 181 Meds Noted: Sole Pierce Skin: No skin issues Additional Notes: Tolerating tube feeding well. Continue with current orders. Agree with orders. Monitor tube feeding, tolerance, wt, labs. Follow up every sunday and sunday
--- NOTE | 2025-05-15 13:20 | PCOTNOTE ---
Patient sleeping at this time. Patient's verbalized he had PT services this morning, he is very weak and has plans to be discharged to [facility] this afternoon. Patient's declined at this time.
[2025-05-15 14:00] VITALS: BP 136/60; PULSE 68; RESP 16; TEMP 37; O2SAT 99
--- NOTE | 2025-05-15 14:33 | P.DS_ITS ---
DS: Admitting Diagnosis Discharge Date 05/15/25 Admitting Diagnosis Shortness of breath DS: Discharge Diagnosis Discharge Diagnosis (1) Shortness of breath: Code(s): R06.02 - Shortness of breath Status: Acute (2) GI bleed: Qualifiers: GI bleed type/associated pathology: melena Qualified Code(s): K92.1 - Melena Code(s): K92.2 - Gastrointestinal hemorrhage, unspecified Status: Acute (3) AVM (arteriovenous malformation) of duodenum, acquired with hemorrhage: Code(s): K31.811 - Angiodysplasia of stomach and duodenum with bleeding Status: Acute (4) Anemia: Code(s): D64.9 - Anemia, unspecified Status: Acute (5) Dysphagia: Qualifiers: Dysphagia type: unspecified Qualified Code(s): R13.10 - Dysphagia, unspecified Code(s): R13.10 - Dysphagia, unspecified Status: Chronic (6) Acute kidney injury superimposed on CKD: Code(s): N17.9 - Acute kidney failure, unspecified; N18.9 - Chronic kidney disease, unspecified Status: Acute (7) Hypokalemia: Code(s): E87.6 - Hypokalemia Status: Acute (8) Hypertension: Code(s): I10 - Essential (primary) hypertension Status: Chronic (9) Alcohol abuse: Code(s): F10.10 - Alcohol abuse, uncomplicated Status: Acute (10) Atrial fibrillation: Qualifiers: Atrial fibrillation type: unspecified chronic Qualified Code(s): I48.20 - Chronic atrial fibrillation, unspecified Code(s): I48.91 - Unspecified atrial fibrillation Status: Chronic (11) Diabetes mellitus: Qualifiers: Diabetes mellitus type: type 2 Diabetes mellitus chcf insulin use: without chcf use Diabetes mellitus complication status: with kidney complications Diabetes mellitus complication detail: with chronic kidney disease Chronic kidney disease stage: stage 4 (severe) Qualified Code(s): E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; N18.4 - Chronic kidney disease, stage 4 (severe) Code(s): E11.9 - Type 2 diabetes mellitus without complications Status: Chronic (12) Leukocytosis: Code(s): D72.829 - Elevated white blood cell count, unspecified Status: Acute (13) Hypothermia: Qualifiers: Encounter type: initial encounter Qualified Code(s): T68.XXXA - Hypothermia, initial encounter Code(s): T68.XXXA - Hypothermia, initial encounter Status: Acute (14) Knee pain: Code(s): M25.569 - Pain in unspecified knee Status: Acute (15) Type II fracture of odontoid process: Qualifiers: Encounter type: subsequent encounter Fracture type: closed Fracture alignment: nondisplaced Fracture healing: with routine healing Qualified Code(s): S12.112D - Nondisplaced Type II dens fracture, subsequent encounter for fracture with routine healing Code(s): S12.110A - Anterior displaced Type II dens fracture, initial encounter for closed fracture Status: Chronic DS: Summary Hospital Course Reason for hospitalization: 84 y/o M with PMH of alcohol use disorder, hypertension, prostate cancer, hyperlipidemia, gout, CKD stage IV, seizures, dysphagia S/P peg placement, atrial fibrillation on anticoagulation, anemia of chronic disease, and type 2 diabetes presents here with anemia and bradycardia, melena, shortness of breath x2 days. Please see H&P for details Hospital Course: The patient presents here from [facility] via EMS on 05/02 for further evaluation of low hemoglobin and bradycardia. Patient currently at [facility] after a recent admission at [facility] from 04/12/25 to 04/24/25. Seen at that time for altered mental status/new onset seizure disorder. Seizure suspected to be related to alcohol use or withdrawal, started on Keppra 750 mg twice daily. Patient additionally found to have a type 2 odontoid fracture for which he saw neuro surgery and was placed in an Belmond collar, follow-up with their service in 6 weeks and discharged to [facility] for PT/OT. Patient also failed MBS on 04/17 for which a PEG tube was placed on 04/20 and he was started on tube feeds, strict NPO, and to continue speech therapy at [facility]. Patient also developed new AFib during this admission for which he was restarted on labetalol for concurrent hypertension and he was started on anticoagulation with Eliquis. Additionally treated for CAP for which he did not require supplemental oxygen. Has since been at [facility] and has had an unremarkable recovery up until 05/02/2025 when his Hgb was found to be 5.2, verified via repeat (4.8). Patient also noted to be bradycardic at 54. Per the patient's , he has been experiencing dark tarry stools for the past 4 days. Initial VS at presentation: 97.9? F, HR 54, R 19, 111/54, and 100% on RA. ED workup showed: WBC 10.5, hemoglobin 4.6 (previously 7.5 on 04/25), INR 1.6, sodium 131, creatinine 3.57 and GFR 17 (previously 2.87 and GFR 21 on 04/25), glucose 142, albumin 2.9. Shortness of breath Reported feeling shortness of breath transiently on 05/03/2025. Chest CT demonstrated diffuse lung disease likely a combination of moderate pulmonary edema and pneumonia, moderate-size pleural effusions, ascites Patient did received 3 units PRBC. Quad viral screen negative. Respiratory pathogen panel pending. Mycoplasma IgM negative. Required O2 transiently. Has been breathing well since on room air. Lasix was resumed but now currently on hold due to NANDINI Melena, acute anemia on chronic anemia GI consulted. Status post 3 units PRBC. 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 Lesion was cauterized with APC. GI recommended restarting tube feeding, holding Eliquis for 7 days status post EGD. PPi stopped. Hgb was trending down and then began to have dark stools. GI reconsulted. Added on PPI. Started ocreotide for AVMs. Hgb dropped to 6.5 and received 2U PRBCs on 05/13. Hgb climbed to 9.2 and has remained stable. Plan to continue Octreotide as outpatient and outpatient capsule endoscopy for suspected more AVMs. Dysphagia status post PEG placement Speech therapy consulted, modified barium swallow completed on 05/04/2025 after EGD, demonstrates pharyngeal dysphagia with laryngeal penetration without aspiration. Tube feeding restarted, NPO except for 1 on 1 oral feeding per sp eech therapy with continued evaluations and treatment. We continued dietitian and speech therapy NANDINI and CKD Recent baseline around 3.0. Presents to serum creatinine 3.49, no improvement after 3 unit PRBC and 1 L of lactated Ringer's Nephrology consulted. Elevated BUN possibly due to GI bleed. Appreciate recommendations. Hamilton catheter removed. Cr better at 2.6 but BUN remains elevated. Hypokalemia: Replaced Hypertension Initially holding amlodipine and hydralazine due to GI bleed. Blood pressure was elevated so amlodipine resumed SBP running about 150-160 range. History of alcohol use disorder, seizure disorder Keppra level elevated at 78. Lowered Keppra to 500mg b.i.d. Neuro consulted. Discussed with neurology. Atrial fibrillation on anticoagulation, bradycardia Currently in sinus rhythm. Holding [employer] labetalol Eliquis on hold due to GI bleed. Vot-jkuqqyo-nihfvrojo diabetes mellitus Aic 6.1% in Feb. Accu-Cheks q.6 hours with low-dose insulin sliding scale and hypoglycemia protocol Type 2 fracture of odontoid process -continue Belmond collar -continue PT/OT Leukocytosis Afebrile. Patient appears nontoxic, no evidence of active infection. BCx NGTD. Chest x-ray 05/09 with CHF and superimposed probable pneumonia. Multiple bowel movement charted. C diff came back negative. Leukocytosis stable at 12-13K. Hypothermia On admission, received heating blanket/Alma Hugger, could have been due to anemia. Resolved. Left knee pain x-ray with no fracture however does have tricompartmental degenerative changes, calcification of the menisci which could be associated with pseudo gout or CPPD. Extensive vascular calcification associated with peripheral artery disease. Pain better. Will continue therapy and lidocaine patch. Left LE venous doppler negative for DVT The patient overall did well and was able to be discharged on 05/15/25. Discharge instructions discussed including medication side effects and all questions answered. Zocor changed to Lipitor due to patient being on Norvasc Status at Discharge Cognitive/behavioral status at discharge: stable Time Spent with Patient Time attestation: Total time spent providing and/or coordinating discharge services: 40 minutes Time spent: Greater than 30 minutes Exam Narrative: AF 98.8 146/63 54 20 97% ra Gen - thin, frail male in NARD Neck - C-collar in place Chest - CTA bilaterally, nml RR CV - RRR S1/S2 Abd - soft, NT/ND, +BS, GTube site clean and dry Ext - trace L>R LE edema. Neuro - alert and appropriate Psych - nml mood. more animated today Skin - warm and dry DS: Data Data Completed and Pending Labs on day of discharge: Labs from last 24 hours 05/15/25 05/15/25 05/15/25 12:04 06:38 05:21 WBC 13.1 H RBC 3.11 L Hgb 9.4 L Hct 27.7 L MCV 89.1 MCH 30.2 MCHC 33.9 RDW 16.2 H Plt Count 302 MPV 9.9 Immature Gran % (Auto) 0.7 H Neut % (Auto) 79.5 H Lymph % (Auto) 7.4 L [place] % (Auto) 9.6 H Eos % (Auto) 2.5 Baso % (Auto) 0.3 Lymph # (Auto) 0.97 [place] # (Auto) 1.3 H Eos # (Auto) 0.3 Baso # (Auto) 0.0 Abs Immat Gran (auto) 0.09 H Absolute Neuts (auto) 10.4 H Absolute Nucleated RBC 0.000 Nucleated RBC % 0.0 Sodium 136 L Potassium 3.2 L Chloride 107 Carbon Dioxide 17 L Anion Gap 12 BUN 120 H* Creatinine 2.66 H Estim Creat Clear Calc 16 Estimated GFR 23 L Glucose 181 H POC Capillary Glucose 175 H 216 H Calcium 8.7 Erythropoietin Total Bilirubin 0.5 AST 61 H ALT 73 H Alkaline Phosphatase 220 H Total Protein 6.2 L Albumin 2.7 L 05/15/25 05/14/25 05/13/25 00:12 17:10 06:14 WBC RBC Hgb Hct MCV MCH MCHC RDW Plt Count MPV Immature Gran % (Auto) Neut % (Auto) Lymph % (Auto) [place] % (Auto) Eos % (Auto) Baso % (Auto) Lymph # (Auto) [place] # (Auto) Eos # (Auto) Baso # (Auto) Abs Immat Gran (auto) Absolute Neuts (auto) Absolute Nucleated RBC Nucleated RBC % Sodium Potassium Chloride Carbon Dioxide Anion Gap BUN Creatinine Estim Creat Clear Calc Estimated GFR Glucose POC Capillary Glucose 185 H 184 H Calcium Erythropoietin 295.5 H Total Bilirubin AST ALT Alkaline Phosphatase Total Protein Albumin Discharge Plan Discharge Attending physician on discharge: Brandt Dumont Consulting providers: Carlos Pena; Benji Arguello; Dino Damon Discharging Clinician: Brandt Dumont Anticipated Discharge Date/Time: 05/15/25 14:51 Patient [facility]position: [facility] Activity: other - see discharge instructions Diet: NPO and other - see discharge instructions Discharge Instructions: NPO and strict G-Tube feeding except for 1 on 1 oral feeding per speech therapy with continued evaluations and treatment. Routine G-Tube care. Recommend Nephrology consult. Continue Tube Feeding per current instructions Please check glucose before meals and before bed. Record for the doctor's review. Check blood pressure 1 to 2 times a day. Record for the doctor's review. Take precautions to avoid falls. Rise slowly from a lying or sitting position. Pause before standing or walking. Maintain C-collar on at all time, avoid pushing/pulling or lifting greater than 10 lbs. Contact the doctor if the patient has any type of trauma, lightheadedness with standing or other worrisome symptoms. Avoid NSAIDs (ibuprofen, naproxen, Aleve). Tylenol is safe to take. Follow-up with the provider at the facility. Follow-up with Neurosurgery, Dr. Angulo in 6 weeks. Follow-up wih Dr Pena in 2-4 weeks. Follow-up with Dr Phillips for outpatient capsule endoscopy study to further evaluate the intermittent bleeding in the bowel. Thank you for using [facility] for your health care needs. Patient Language: Russian Follow-up/Referrals: Benji Arguello MD [Physician, Hematology] - 3 Weeks Alverto Angulo MD [Physician, Neurosurgery] - Call for Appointment Dino Damon MD [Physician, Neurology] - 4 Weeks Carlos Pena MD [Physician, Nephrology] - 4 Weeks Adilson Phillips MD [Physician, Gastroenterology] - 2 Weeks Discharge Medications: New lidocaine [Lidoderm] 5 % Adhesive Patch,Medicated 1 patch transdermal DAILY Qty: 30 0RF levetiracetam 100 mg/mL Solution 500 mg feeding tube Q12HR Qty: 60 0RF atorvastatin [Lipitor] 20 mg tablet 20 mg feeding tube DAILY Qty: 30 0RF Retacrit 10,000 unit/mL Solution 10,000 unit subcut TUTHSA@09 Qty: 10 0RF octreotide acetate [Sandostatin] 100 mcg/mL Solution 100 mcg subcut Q8HR 30 Days Qty: 90 0RF Continued acetaminophen [Nortemp] 160 mg/5 mL Suspension 650 mg feeding tube Q4H PRN (Reason: Mild Pain (1-3) Or Fever) Qty: 30 0RF amlodipine [Norvasc] 5 mg Tablet 5 mg feeding tube DAILY Qty: 30 0RF Changed febuxostat 80 mg tablet 40 mg feeding tube DAILY Qty: 90 1RF Held furosemide 40 mg tablet See Rx Instructions .ROUTE .COMPLEX Qty: 90 2RF Hold Instructions: HOLD - resume when okay with the other providers Dose Instruction: TAKE 1 TABLET BY MOUTH EVERY DAY Rx Instructions: TAKE 1 TABLET BY MOUTH EVERY DAY Discontinued hydralazine 25 mg Tablet 25 mg feeding tube Q8H Qty: 90 0RF levetiracetam 100 mg/mL Solution 750 mg feeding tube Q12HR Qty: 473 0RF Eliquis 2.5 mg Tablet 2.5 mg feeding tube Q12HR Qty: 60 0RF famotidine [Pepcid] 20 mg tablet 10 mg feeding tube EVERY OTHER DAY Qty: 30 0RF labetalol 100 mg tablet 100 mg feeding tube Q12H Rx Instructions: TAKE 1 TABLET BY MOUTH TWICE A DAY simvastatin 40 mg tablet See Rx Instructions .ROUTE .COMPLEX Qty: 90 2RF Dose Instruction: TAKE 1 TABLET BY MOUTH EVERY DAY Rx Instructions: TAKE 1 TABLET BY MOUTH EVERY DAY Other Ambulatory Orders: Complete Blood Count with Diff (Routine) Timeframe: 20250518 Location: Determined by Patient Ordered By: Brandt Dumont Comprehensive Metabolic Panel (Routine) Timeframe: 20250518 Location: Determined by Patient Ordered By: Brandt Dumont Date of admission: 05/03/25 12:02 Primary Care Provider: Presley Maza Admitting Provider: Laurent Mg Oca Attending physician on admission: Laurent Mg Oca Condition: Guarded Prognosis Hospitalist MIPS Heart Failure (Exclusion) Patient has history of Heart Transplant or Left Ventricular Assistive Device?: No IF YES, STOP HERE Heart Failure (Qualifier) Patient has current or prior documentation of LVEF less than or equal to 40%, or mod/servere depressed LVSF?: No IF NO, STOP HERE
== END 2025-05-15 19:15 | DRG 377 ==
LOC: ANHED 14:50 → ANHIMU 17:21 → ANH3MEDSUR 05-05 18:23
PROVIDERS: Family Medicine; General Practice; Internal Medicine; Internal Medicine Gastroenterology; Internal Medicine Hematology & Oncology; Internal Medicine Nephrology; Student in an Organized Health Care Education/Training Program; Admitting Provider Student in an Organized Health Care Education/Training Program; Emergency Provider Physician Assistant; PCP Internal Medicine; Visit Provider Internal Medicine
PROC: 0DJ08ZZ Inspection of Upper Intestinal Tract, Via Natural or Artificial Opening Endoscopic (ICD-10-PCS; principal; 2025-05-04 14:00)
DX: K31.811 Angiodysplasia of stomach and duodenum with bleeding (principal); J18.9 Pneumonia, unspecified organism; N17.9 Acute kidney failure, unspecified; N18.4 Chronic kidney disease, stage 4 (severe); E87.1 Hypo-osmolality and hyponatremia; G40.509 Epileptic seizures related to external causes, not intractable, without status epilepticus; J81.1 Chronic pulmonary edema; J90 Pleural effusion, not elsewhere classified; D62 Acute posthemorrhagic anemia; T45.515A Adverse effect of anticoagulants, initial encounter; D63.1 Anemia in chronic kidney disease; E78.2 Mixed hyperlipidemia; I48.91 Unspecified atrial fibrillation; F10.10 Alcohol abuse, uncomplicated; M54.59 Other low back pain; E11.22 Type 2 diabetes mellitus with diabetic chronic kidney disease; M48.061 Spinal stenosis, lumbar region without neurogenic claudication; I70.0 Atherosclerosis of aorta; M17.12 Unilateral primary osteoarthritis, left knee; R13.10 Dysphagia, unspecified; Z66 Do not resuscitate; Z20.822 Contact with and (suspected) exposure to COVID-19; E87.6 Hypokalemia; M25.562 Pain in left knee; R68.0 Hypothermia, not associated with low environmental temperature; I73.9 Peripheral vascular disease, unspecified; M10.9 Gout, unspecified; Z96.659 Presence of unspecified artificial knee joint; Z79.01 Long term (current) use of anticoagulants; Z87.891 Personal history of nicotine dependence; Z93.1 Gastrostomy status; S12.110D Anterior displaced Type II dens fracture, subsequent encounter for fracture with routine healing; Z86.73 Personal history of transient ischemic attack (TIA), and cerebral infarction without residual deficits; Z85.46 Personal history of malignant neoplasm of prostate
CPT/HCPCS: 36415; 36430; 71045; 71250; 73562; 74230; 76770; 80053; 80069; 80177; 81001; 82550; 82570; 82607; 82668; 82728; 82746; 82948; 83010; 83540; 83550; 83735; 83880; 84100; 84153; 84156; 84300; 84439; 84443; 84480; 84540; 85014; 85018; 85025; 85027; 85046; 85610; 85730; 86738; 86850; 86880; 86900; 86901; 86923; 87040; 87493; 87633; 87637; 87899; 92507; 92526; 92611; 93005; 93971; 96374; 97110; 97162; 97166; 97530; 97535; 99285; A9270; G0103; G0378; J0295; J0456; J1815; J2354; J2470; J2704; J3480; J7030; J7040; J7050; J7120; P9016; P9047; Q5105

== ENCOUNTER 2025-05-18 08:35 | Inpatient (IN) | payer MEDICARE, SELFPAY ==
[2025-05-18] VITALS (19 sets, daily range): BP systolic 97–122; BP diastolic 42–52; PULSE 81–102; RESP 20–36; TEMP 36.9–37.6; O2SAT 95–100; BMI 22.5
--- NOTE | ~2025-05-18 | XR_ITS ---
EXAMINATION: XR chest 1V portable COMPARISON: No comparisons available. HISTORY: SOB FINDINGS: There are bilateral infiltrates with small left effusion. No pneumothorax. Mild cardiomegaly. Mediastinal and hilar contours are within normal limits. Bony thorax no acute abnormality. Miscellaneous: None Impression: Bilateral pneumonia. Findings appear slightly progressed compared to the previous exam Reviewed, dictated and finalized at location [facility] Impression: Bilateral pneumonia. Findings appear slightly progressed compared to the previo us exam
--- NOTE | 2025-05-18 08:45 | PC.NURSE ---
patient came in on 2L per NC and this RN wanted to evaluate patient without O2.
--- NOTE | 2025-05-18 09:00 | ED.GENADULT ---
HPI - General Adult General Chief complaint: Shortness of Breath/Dyspnea Stated complaint: SOB Time Seen by Provider: 05/18/25 08:40 History of Present Illness HPI narrative: 84-year-old male presents emergency department for evaluation for worsening shortness of breath. Patient was just discharged from [facility] after being admitted for GI bleed, AVM of the duodenum, acute kidney injury and AFib. patient was at his care facility last night when he had an episode emesis and coughing and when the came to check on him today she noticed that he seemed to be having some increased difficulty breathing. Patient did have an increased respiratory rate and O2 requirement. Patient was transferred to the emergency department by EMS and treated with a DuoNeb. Related Data Home Medications ?Medication ?Instructions ?Recorded ?Confirmed ?Last Taken ?Type nystatin 100,000 unit/gram topical 1 applic topical BID PRN blistering 05/18/25 05/18/25 05/17/25 21:05 History powder 1 applic ondansetron 4 mg disintegrating 4 mg PO Q6H PRN nausea and vomiting 05/18/25 05/18/25 05/18/25 00:15 History tablet 4 mg Allergies Allergy/AdvReac Type Severity Reaction Status Date / Time allopurinol Allergy Unknown Skin Verified 05/18/25 15:38 Reaction diclofenac Allergy Unknown Pt doesn't Verified 05/18/25 15:38 know doxycycline Allergy Unknown hands Verified 05/18/25 15:38 probenecid Allergy Unknown Skin Verified 05/18/25 15:38 Reaction Review of Systems Review of Systems: All systems reviewed & are unremarkable except as noted in HPI and below PMFSH Past Medical History Medical History (Updated 05/18/25 @ 18:00 by Zen Beltrán MD) Seizure Atrial fibrillation, chronic AVM (arteriovenous malformation) of duodenum, acquired with hemorrhage Acute on chronic anemia Melena Atherosclerosis of aorta Atrial fibrillation HTN (hypertension) Alcohol abuse Malignant neoplasm of prostate Dysphonia Chronic bilateral low back pain Encephalopathy Mixed hyperlipidemia NANDINI (acute kidney injury) Pneumonia Fluid overload Epistaxis r nares no bleeding site seen Gout, unspecified Gout CKD (chronic kidney disease) stage 4, GFR 15-29 ml/min Osteoarthrosis, localized, primary, involving lower leg Osteoarthrosis, localized, primary, involving hand Lumbar stenosis Anemia in chronic kidney disease Diabetes mellitus currently diet controlled, A1C 6.1% on 02/27/25 Surgical History Surgical History H/O cataract extraction History of appendectomy H/O laminectomy C3-C4 History of carpal tunnel release History of repair of rotator cuff H/O arthroscopy of knee Family History Family History Mother Hypertension, Onset Age: 72 Father Malignant neoplasm of prostate, Onset Age: 76 Social History Social History Social History: Caffeine- coffee Smoking packs per day: 1 Smoking cigarettes per day: 20.0 Years smoked: 40 Smoking pack-years: 40.00 Smoking status: Former smoker Tobacco type: cigarettes Second hand tobacco smoke exposure: No Additional smoking assessment comments: Quit 40 years ago Alcohol intake: former Drinks per week: 10 Substance use: never Substance use type: does not use Do You Feel Safe in your Home?: Yes Lack of Transportation: No Lack of Food: Never True Current Housing: I Have Housing Concerned About Future Housing: No Difficulty Paying Gas/Electric Bills: No Difficulty Paying for Meds: No Currently Unemployed: No Education: High School Diploma/GED Difficulty w/ Childcare or Family Care: No Gender identity (if verbalized by the patient): Male Spiritual care concerns: No Exam Narrative: APPEARANCE: Ill-appearing HEAD: normocephalic, atraumatic. EYES: PERRLA/EOMI, conjunctivae clear. NOSE: Normal no drainage EARS:TMS clear with good light reflex. THROAT: Pharynx clear, no exudate. NECK: Standish collar in place RESPIRATORY: Congested lung sounds bilaterally CARDIOVASCULAR: Regular rate and rhythm without murmurs rubs or gallops. ABDOMINAL: Soft, nontender, nondistended, normal bowel sounds MUSCULOSKELETAL: Moves all extremities. Strength/ROM intact, No edema, No calf tenderness. NEURO: Alert. Cranial nerves II through XII intact. Good gait. Good coordination SKIN: Warm, dry. Normal Color Course Vital Signs Vital signs: Vital Signs Temperature 99.1 F 05/18/25 08:34 Pulse Rate 98 05/18/25 08:34 Respiratory Rate 32 H 05/18/25 08:34 Blood Pressure 107/42 L 05/18/25 08:34 Pulse Oximetry 100 05/18/25 08:34 Oxygen Delivery Nasal Cannula 05/18/25 08:34 Oxygen Flow Rate 2 05/18/25 08:34 Temperature 98.4 F 05/18/25 16:00 Pulse Rate 91 05/18/25 16:00 Respiratory Rate 22 H 05/18/25 16:00 Blood Pressure 122/47 L 05/18/25 16:00 Pulse Oximetry 98 05/18/25 16:00 Oxygen Delivery Nasal Cannula 05/18/25 13:33 Oxygen Flow Rate 2 05/18/25 13:33 Medical Decision Making MDM Narrative Medical decision making narrative: 84-year-old male presented to the emergency department for evaluation for increased shortness of breath and new onset hypoxia. Patient typically has no oxygen requirement but is were requiring oxygen here today. Patient is afebrile but does have an elevated white blood cell count of 18.1 hemoglobin of 9.2. On patient's ABG he was hypoxic. Creatinine and BUN were elevated but similar to his baseline. Patient was ordered antibiotics for pneumonia. Patient was treated with 5 mg of nebulized albuterol. Case was discussed with hospitalist patient was accepted for admission for pneumonia treatment. does confirm that the patient was DNI DNR. Patient was admitted the IMU. Differential Diagnosis Differential Diagnosis: COVID, RSV, influenza, pneumonia, pneumothorax, aspiration pneumonia Vital Signs Vital Signs: Vital Signs Temperature 99.1 F 05/18/25 08:34 Pulse Rate 98 05/18/25 08:34 Respiratory Rate 32 H 05/18/25 08:34 Blood Pressure 107/42 L 05/18/25 08:34 Pulse Oximetry 100 05/18/25 08:34 Oxygen Delivery Nasal Cannula 05/18/25 08:34 Oxygen Flow Rate 2 05/18/25 08:34 Temperature 98.4 F 05/18/25 16:00 Pulse Rate 91 05/18/25 16:00 Respiratory Rate 22 H 05/18/25 16:00 Blood Pressure 122/47 L 05/18/25 16:00 Pulse Oximetry 98 05/18/25 16:00 Oxygen Delivery Nasal Cannula 05/18/25 13:33 Oxygen Flow Rate 2 05/18/25 13:33 Lab Data Lab results reviewed: Yes I reviewed the patient's lab results. 05/18/25 08:56 05/18/25 08:56 Labs: Lab Results 05/18/25 05/18/25 05/18/25 Range/Units 08:56 09:12 11:25 WBC 18.1 H (4.5-10.0) K/mm3 RBC 3.10 L (4.6-6.20) M/mm3 Hgb 9.2 L (14.0-18.0) g/dL Hct 27.8 L (42.0-52.0) % MCV 89.7 (80-100) fl MCH 29.7 (26-34) pg MCHC 33.1 (32-36) g/dl RDW 16.2 H (11.5-14.5) % Plt Count 392 H (150-375) k/mm3 MPV 9.1 (7.4-10.4) fl Immature Gran % (Auto) Not Reportable Neut % (Auto) Not Reportable Lymph % (Auto) Not Reportable [place] % (Auto) Not Reportable Eos % (Auto) Not Reportable Baso % (Auto) Not Reportable Lymph # (Auto) Not Reportable [place] # (Auto) Not Reportable Eos # (Auto) Not Reportable Baso # (Auto) Not Reportable Abs Immat Gran (auto) Not Reportable Absolute Neuts (auto) Not Reportable Absolute Nucleated RBC Not Reportable Total Counted 100 Neutrophils % (Manual) 76 H (46-73) % Band Neutrophils % 15 H (0-6) % Lymphocytes % (Manual) 5 L (18-44) % Monocytes % (Manual) 4 (3-9) % Nucleated RBC % Not Reportable Abs Neuts (Manual) 16.47 H (1.3-6.7) K/mm3 Abs Lymphs (Manual) 0.90 L (1.1-4.5) K/mm3 Abs Monocytes (Manual) 0.72 (0.1-0.90) K/mm3 Nucleated RBCs 2 % Platelet Estimate Slightly increased (Adequate) Hypochromasia Occasional Anisocytosis 1+ Schistocytes None seen PT 19.1 H (11.1-14.7) Seconds INR 1.6 APTT 35.7 (22.3-36.8) Seconds Sodium 139 (137-145) mmol/L Potassium 2.9 L (3.4-5.0) mmol/L Chloride 111 H (98-107) mmol/L Carbon Dioxide 18 L (22-30) mmol/L Anion Gap 10 (4-12) mmol/L BUN 113 H* (9-20) mg/dL Creatinine 3.06 H (0.7-1.3) mg/dL Estim Creat Clear Calc 19 ml/min Estimated GFR 20 L (59 - ) Glucose 108 (65-110) mg/dL Calcium 9.2 (8.4-10.2) mg/dL Total Bilirubin 0.8 (0.2-1.3) mg/dL AST 215 H (17-59) U/L ALT 139 H (6-50) U/L Alkaline Phosphatase 323 H (38-126) U/L Total Protein 6.1 L (6.3-8.2) g/dL Albumin 2.5 L (3.5-5.1) g/dL Urine Color Yellow (Yellow) Urine Appearance Clear (Clear) Urine pH 5.0 (5.0-9.0) Ur Specific [place] 1.015 (1.001-1.035) Urine Protein 3+ H (Negative) mg/dL Urine Glucose (UA) Trace H (Negative) mg/dL Urine Ketones Negative (Negative) mg/dL Ur Blood (Man) Negative (Negative) Urine Nitrate Negative (Negative) Urine Bilirubin Negative (Negative) Urine Urobilinogen 0.2 (<2.0) mg/dL Add Ur Microanalysis Reviewed Leukocyte Esterase Rfl Negative (Negative) BRIDGET/UL Urine RBC 0-2 (0-2) /hpf Urine WBC 0-5 (0-3) /hpf Ur Squamous Epith Cells None seen (Few) /hpf Urine Bacteria None seen /hpf Urine Casts 11-20 Nasal MRSA (PCR) Not detected (NOT DETECTE) ABG Data ABG results: 05/18/25 09:12 Puncture Site Left radial ABG pH 7.444 ABG pCO2 25.5 L ABG pO2 52.0 L ABG PO2/FiO2 Ratio 2.48 ABG HCO3 17.1 L ABG O2 Saturation 88.9 L ABG O2 Content 16.1 ABG Base Excess -5.3 A-a Gradient 67.2 Oxyhemoglobin 87.0 L* Total Hemoglobin 13.2 O2 Delivery Device Room air O2 Liters/Min Not Reportable FiO2 21 Imaging Data Attestation: I personally reviewed and interpreted this imaging study as follows: My impression: Chest x-ray: Bilateral pneumonia. Radiologist's impression: Impressions Chest X-Ray 05/18/25 10:07 Impression: Bilateral pneumonia. Findings appear slightly progressed compared to the previous exam Discharge Plan Discharge Clinical Impression: Hypoxia, Pneumonia Patient Disposition: Still a Patient Condition: Serious
[2025-05-18 09:04] LABS: Hematocrit 27.8 % (42.0-52.0); Hemoglobin 9.2 g/dL (14.0-18.0); Mean Corpuscular HGB Conc 33.1 g/dl (32-36); Mean Corpuscular Hemoglobin 29.7 pg (26-34); Mean Corpuscular Volume 89.7 fl (80-100); Platelet Count Result 392 k/mm3 (150-375); Red Blood Count 3.10 M/mm3 (4.6-6.20); White Blood Count 18.1 K/mm3 (4.5-10.0)
[2025-05-18] MEDS: ALBUTEROL SULFATE NEB 2.5 MG/3 ML INH 5 MG INHALATION (09:14)
[2025-05-18 09:15] LABS: Anisocytosis 1+; Band Neutrophils Percent 15 % (0-6); Hypochromasia Occasional; Lymphocytes Absolute Manual 0.90 K/mm3 (1.1-4.5); Lymphocytes Percent Manual 5 % (18-44); Monocytes Absolute Manual 0.72 K/mm3 (0.1-0.90); Monocytes Percent Manual 4 % (3-9); Neutrophils Absolute Manual 16.47 K/mm3 (1.3-6.7); Neutrophils Percent Manual 76 % (46-73); Schistocytes None Seen; Total Cells Counted 100
[2025-05-18 09:16] LABS: INR 1.6; Prothrombin Time 19.1 Seconds (11.1-14.7)
[2025-05-18 09:17] LABS: Partial Thromboplastin Time 35.7 Seconds (22.3-36.8)
--- OUTSIDE RECORDS SUMMARY | 2025-05-18 09:17 | XMS_ITS | Clinical Summary ---
Author Organization [facility] Address [address] [place] [id number] Phone Care Team Providers Care Complaint Inspector Name Role Phone Aramis Tompkins Primary Care Provider [phone] Allergies Active Allergy Reactions Criticality Noted Date Comments Allopurinol Rash Low 03/27/2019 Diclofenac 01/07/2002 Doxycycline 11/22/2005 Peg 2254-Prc-Ulwot-Nacl-Nasulf 05/11 Medications sildenafil (VIAGRA) 100 MG tablet [...] Next Due H1N1 All Forms 07/09/2009,07/09/2009 Influenza LAIV (Nasal) 03/18/2021 Influenza Recombinant Bari valent Injectable Preservative Free 03/04/2019 Influenza Split High Dose Pr eservative Free IM 02/20/2018,02/20/2018 Influenza TIV (IM) 03/25/2020, 0,03/12/2019,03/12,03/06/2017,03/06/2017,03/22/2015 ,03/22/2015,02/11/2014,02/11/2014,02/24,03/18/2013,02/14/2012, 2,04/24/2011,04/24/2011,04/06/2010,,03/02/2009,03/02/2009,03/26/20 08,03/26/2008,04/10/2007,04/10/2007,,04/17/2006,03/30/2005, 005 Influenza, Injectable, Quadrivalent 03/04/2020 Influenza, Quadrivalent 03/18/2021 Influenza, Unspecified 03/25/2021 Influenza, split virus, trivalent, PF 03/04/2019 ,03/04/2019 Pfizer Sars-cov-2 Vaccination 09/10/2020, 021 Pneumococcal Conjugate [...] Date Last Done Comments COVID-19 Vaccine (3 - 2024-2 6 season) 2025 09/10/2020, 08/20/2020 Influenza Vaccine (#1) 2025 , 03/18/2021, 03/25/2020, Additional history exists Pneumococcal PPSV23/PCV13 65 + Years / Low and Medium Risk Completed 10/30/2014, 10/30/2014, 03/30/2005 Insurance AET[employer] Care Teams Complaint Inspector Relationship Specialty Start Date End Date Aramis Tompkins DO PCP - General Family Medicine 03/15/22
--- OUTSIDE RECORDS SUMMARY | 2025-05-18 09:17 | XMS_ITS | Clinical Summary ---
Author Organization [facility] Address [facility] [place] [address] Care Team Providers Care Armhole Presser Name Role Phone Tete Kay MD Primary Care Provider [phone] Allergies Active Allergy Reactions Criticality Noted Date [...] (02/03/2021): Added automatically from request for surgery [id number] Anemia in chronic kidney disease 08/28/2018 Hypertensive [...] on file Medical Devices Implanted Type Area Shredding Machine Operator Device Identifier Shelf Expiration Date Model / Serial / Lot [employer] 700-025 I Factor Allograft Putty Syringe Graft 2.5cc Bone - Sna - [id number] Implanted:Qty : 1 on 03/03/2021 by Chacorta Wheeler MD at [facility] Other - see comments N/A: Spine Cervical [employer] [id number] 07/25/2023 700-025 / NA / [id number] Norbert Spine [id number] Mm X W17 Mm X H6 Mm Cervical Anterior 10 D Cage Spinal Tritanium Sterile Latex Free - Sna - [id number] Implanted:Qty : 1 on 03/03/2021 by Chacorta Wheeler MD at [facility] Other - see comments N/A: Spine Cervical [employer] Spine [id number] 05/31/2022 [id number] / NA / [id number] Norbert Spine [id number] Plate 20mm Bone Haakon Spine Cervical 1 Level Nonsterile Latex Free - Sna - [id number] Implanted:Qty : 1 on 03/03/2021 by Chacorta Wheeler MD at [facility] Screw N/A: Spine Cervical Norbert Spine [id number] / NA / [employer] Spine [id number] Screw 16mm 4mm Bone Haakon Spine Cervical Self Start Variable Angle Nonsterile - Sna - [id number] Implanted:Qty : 3 on 03/03/2021 by Chacorta Wheeler MD at [facility] Screw N/A: Spine Cervical Norbert Spine [id number] / NA / [employer] Spine [id number] zark 4.5mm 16mm Self Start Variable Angle Spine Cervical Screw - Sna - [id number] Implanted:Qty : 1 on 03/03/2021 by Chacorta Wheeler MD at [facility] Screw N/A: Spine Cervical Norbert Spine [id number] / NA / Insurance AETNA MCR ADV REF [facility] ADV REF [facility] ADV REF [employer] MCR ADV REF Advance Directives For more information, please contact: [phone] * Full Code (Latest Code Status on File) Date Activated Date Inactivated Comments 03/03/2021 7:57 PM 03/04/2021 5:47 PM Healthcare Agents on File Name Relationship [facility] Caprice Burleson Spouse Health Care Agent Care Teams Armhole Presser Relationship Specialty Start Date End Date Tete Kay MD [address] [place] [address] PCP - General Family Medicine 01/04/21
--- OUTSIDE RECORDS SUMMARY | 2025-05-18 09:17 | XMS_ITS | Encounter Summary ---
Author Organization [facility] Address [address] [place] [address] Care Team Providers Care [employer] Name Role Phone Tete Kay MD Primary Care Provider [phone] Encounter Details Date Type Department Care Team (Late st Contact Info) Description 01/10/2021 Telephone [facility] [address] [place] [address] Clari Syed, RT Social History Tobacco Use [...] on filedocumented in this encounter Care Teams City [employer] Relationship Specialty Start Date End Date Tete Kay MD [address] [place] [address] PCP - General Family Medicine 01/04/21 documented as of this encounter
[2025-05-18 09:20] LABS: Alveolar/Arterial O2 Gradient 67.2 mmHg; Fractional Inspired Oxygen 21 %; HCO3 ABG 17.1 mEq/l (22.0-26.0); Oxygen Content ABG 16.1 %vol (16.0-22.0); Oxygen Saturation ABG 88.9 % (95.0-100.0); PCO2 ABG 25.5 mmHg (35.0-45.0); PO2 ABG 52.0 mmHg (80.0-100.0); PO2 FiO2 Ratio Arterial Blood 2.48 %
[2025-05-18 09:21] LABS: Alanine Aminotransferase 139 U/L (6-50); Albumin Level 2.5 g/dL (3.5-5.1); Alkaline Phosphatase 323 U/L (38-126); Anion Gap 10 mmol/L (4-12); Aspartate Amino Transferase 215 U/L (17-59); Bilirubin,Total 0.8 mg/dL (0.2-1.3); Blood Urea Nitrogen 113 mg/dL (9-20); Calcium 9.2 mg/dL (8.4-10.2); Carbon Dioxide 18 mmol/L (22-30); Chloride 111 mmol/L (98-107); Estimated CRCL calculation 19 ml/min; Estimated Glomerular Filt Rate 20; Glucose 108 mg/dL (65-110); Potassium 2.9 mmol/L (3.4-5.0); Sodium 139 mmol/L (137-145); Total Protein 6.1 g/dL (6.3-8.2)
[2025-05-18 09:23] LABS: Modified Allen's Test Pass; Site Drawn LEFT RADIAL
--- NOTE | 2025-05-18 09:24 | PCRCNOTE ---
ABG'S delayed due to catheter being placed in by nursing.
[2025-05-18 09:37] LABS: Add Urine Microscopic? YES; Appearance Urine Clear (Clear); Glucose Urine UA Trace mg/dL (Negative); Leukocyte Esterase Ur Negative LEU/UL (Negative); Need Manual Microscopic Reviewed; Nitrate Urine Negative (Negative); Specific Grav Ur 1.015 (1.001-1.035)
--- NOTE | 2025-05-18 09:43 | PC.NURSE ---
Clarification with the patient and his ; that patient stated that he does not want to be intubated or have CPR. BILLY Beltrán made aware.
--- NOTE | 2025-05-18 10:31 | ECG_ITS ---
Test Date: 2025-05-18 08:38:55 Measurements Intervals [place] Rate: 88 P: 0 [place]: 0 QRS: -49 QRSD: 83 T: -10 QT: 357 QTc: 432 Interpretive Statements ATRIAL FIBRILLATION PATTERN CONSISTENT WITH PULMONARY DISEASE INFERIOR MYOCARDIAL INFARCTION , PROBABLY OLD [40+ ms Q WAVE AND/OR ST/T ABNORMALITY IN II/aVF] NONSPECIFIC ST AND T-WAVE ABNORMALITY ABNORMAL ECG Electronically Signed On 05-18-2025 13:52:41 CAP CUTTER by Markie Warren M.D.
--- NOTE | 2025-05-18 10:45 | ECG_ITS ---
Test Date: 2025-05-18 10:45:12 Measurements Intervals [place] Rate: 88 P: 8 NH: 180 QRS: -50 QRSD: 85 T: 21 QT: 392 QTc: 475 Interpretive Statements SINUS RHYTHM LEFT AXIS DEVIATION [QRS AXIS < -30] PATTERN CONSISTENT WITH PULMONARY DISEASE ANTERIOR ST ABNORMALITY, CONSIDER ISCHEMIA PROLONGED QT INTERVAL ABNORMAL ECG Electronically Signed On 05-18-2025 13:55:48 DISHWASHER by Markie Warren M.D.
[2025-05-18] MEDS: CEFEPIME 1 GM in SODIUM CHLORIDE 0.9% IV 50 ML 100 ML IVPB ×2 (10:58→22:00)
[2025-05-18] MEDS: LACTATED RINGERS 1,000 ML 100 ML IV CONT (12:40)
[2025-05-18 12:41] LABS: MRSA (PCR) NOT DETECTED (NOT DETECTE)
[2025-05-18] MEDS: ALBUTEROL SULFATE NEB 2.5 MG/3 ML INH INHALATION (13:31)
--- NOTE | 2025-05-18 13:33 | PM.IMHP ---
H&P: HPI History of Present Illness Date/Time: 05/18/25 13:33 Chief Complaint: Respiratory distress Narrative: A 4-year-old male past medical history of AFib on Eliquis, AVM of duodenum, HTN, alcohol abuse, prostate cancer, hyperlipidemia, gout, CKD, dm 2 presents to the ED from [facility] on 05/18/2025 with complaints of shortness of breath. Patient reportedly had an episode of vomiting last night at the rehab center. When the patient's came to check on him today she noticed he seemed to have increased difficulty in breathing. Patient did have an increased respiratory rate and new O2 requirement upon EMS arrival. Patient very drowsy from me. Information obtained from chart review and patient's at bedside. Initial vital signs 107/42, HR 98, respirations 32, temp 99.1?, 100% on 2 L O2 Lab significant for leukocytosis with WBC 18.1, hemoglobin 9.2 hematocrit 27.8, PT 19.1. ABG with pH 7.44, pCO2 25.5, PO2 52, HC03 17.1, O2 saturation 88.9. Potassium 2.9, chloride 111, carbon dioxide 18, BUN 113, creatinine 3.06 with GFR of 20, BUN 113. AST 215, ALT 139, alk-phos 323. UTI negative for infection. MRSA PCR negative. Chest x-ray reveals bilateral pneumonia. Appears slightly progressed compared to previous exam on 05/15. Patient has been at [facility] since his admission at [facility] from 04/12/25 to 04/24/25. At that time the patient had altered mental status with new onset seizure (thought to be from alcohol use or withdrawal). Patient also found to have a type 2 odontoid fracture which is being conservatively managed with an [place] collar. Patient failed modified barium swallow on 04/17, ultimately having a PEG tube placed on 04/20. Patient also developed new onset AFib for which he was started on labetalol and Eliquis. Patient also treated for community-acquired pneumonia. Patient admitted 05/02/25 to 05/15/25 for melena, shortness of breath and bradycardia. Patient's hemoglobin in the ED was 5.2. EGD on 05/04 demonstrated 2 AVM in the 2nd part of the duodenum; cauterized with APC. Hemoglobin again down trending and patient began having dark stools. Patient required 2 more units packed red blood cells on 05/13. Continuing octreotide as outpatient with plan for capsule study for suspected more AVMs. Patient's son Shantanu Burleson III is POA. Documentation present in chart. Review of Systems Review of Systems: All systems reviewed & are unremarkable except as noted in HPI and below PMFSH Past Medical History Medical History (Updated 05/18/25 @ 20:47 by Irasema Spivey APRN) Seizure Atrial fibrillation, chronic AVM (arteriovenous malformation) of duodenum, acquired with hemorrhage Acute on chronic anemia Melena Atherosclerosis of aorta Atrial fibrillation HTN (hypertension) Alcohol abuse Malignant neoplasm of prostate Dysphonia Chronic bilateral low back pain Encephalopathy Mixed hyperlipidemia NANDINI (acute kidney injury) Pneumonia Fluid overload Epistaxis r nares no bleeding site seen Gout, unspecified Gout CKD (chronic kidney disease) stage 4, GFR 15-29 ml/min Osteoarthrosis, localized, primary, involving lower leg Osteoarthrosis, localized, primary, involving hand Lumbar stenosis Anemia in chronic kidney disease Diabetes mellitus currently diet controlled, A1C 6.1% on 02/27/25 Surgical History Surgical History H/O cataract extraction History of appendectomy H/O laminectomy C3-C4 History of carpal tunnel release History of repair of rotator cuff H/O arthroscopy of knee Family History Family History Mother Hypertension, Onset Age: 72 Father Malignant neoplasm of prostate, Onset Age: 76 Social History Social History Social History: Caffeine- coffee Smoking packs per day: 1 Smoking cigarettes per day: 20.0 Years smoked: 40 Smoking pack-years: 40.00 Smoking status: Former smoker Tobacco type: cigarettes Second hand tobacco smoke exposure: No Additional smoking assessment comments: Quit 40 years ago Alcohol intake: former Drinks per week: 10 Substance use: never Substance use type: does not use Do You Feel Safe in your Home?: Yes Lack of Transportation: No Lack of Food: Never True Current Housing: I Have Housing Concerned About Future Housing: No Difficulty Paying Gas/Electric Bills: No Difficulty Paying for Meds: No Currently Unemployed: No Education: High School Diploma/GED Difficulty w/ Childcare or Family Care: No Gender identity (if verbalized by the patient): Male Spiritual care concerns: No Meds Home Medications and Allergies Home Medications ?Medication ?Instructions ?Recorded ?Confirmed ?Type acetaminophen 160 mg/5 mL oral 650 mg (20.3125 mL) feeding tube 04/24/25 05/18/25 Rx suspension (Nortemp) Q4H PRN Mild Pain (1-3) Or Fever #30 mL amlodipine 5 mg tablet (Norvasc) 5 mg feeding tube DAILY #30 tabs 04/24/25 05/18/25 Rx furosemide 40 mg tablet See Rx Instructions .Route 05/11/25 05/18/25 Rx .COMPLEX #90 tabs atorvastatin 20 mg tablet (Lipitor) 20 mg feeding tube DAILY #30 tabs 05/15/25 05/18/25 Rx epoetin cuco-epbx 10,000 unit/mL 10,000 unit subcut TUTHSA@09 #10 mL 05/15/25 05/18/25 Rx injection solution (Retacrit) febuxostat 80 mg tablet 40 mg (1/2 x 80 mg) feeding tube 05/15/25 05/18/25 Rx DAILY #90 tabs levetiracetam 100 mg/mL oral 500 mg (5 mL) feeding tube Q12HR 05/15/25 05/18/25 Rx solution #60 mL lidocaine 5 % topical patch 1 patch transdermal DAILY #30 ea 05/15/25 05/18/25 Rx (Lidoderm) octreotide acetate 100 mcg/mL 100 mcg subcut Q8HR 30 days #90 mL 05/15/25 05/18/25 Rx injection solution (Sandostatin) nystatin 100,000 unit/gram topical 1 applic topical BID PRN blistering 05/18/25 05/18/25 History powder ondansetron 4 mg disintegrating 4 mg PO Q6H PRN nausea and vomiting 05/18/25 05/18/25 History tablet Allergies Allergy/AdvReac Type Severity Reaction Status Date / Time allopurinol Allergy Unknown Skin Verified 05/18/25 15:38 Reaction diclofenac Allergy Unknown Pt doesn't Verified 05/18/25 15:38 know doxycycline Allergy Unknown hands Verified 05/18/25 15:38 probenecid Allergy Unknown Skin Verified 05/18/25 15:38 Reaction Vital Signs Vital Signs - 24 hr 05/18/25 08:34 05/18/25 08:41 05/18/25 08:46 Temperature 99.1 F Pulse Rate 98 93 Respiratory Rate 32 H 36 H Blood Pressure 107/42 L 104/46 L Pulse Oximetry 100 100 Oxygen Delivery Nasal Cannula Room Air Oxygen Flow Rate 2 05/18/25 09:01 05/18/25 09:14 05/18/25 09:16 Temperature Pulse Rate 95 95 102 H Respiratory Rate 34 H 20 34 H Blood Pressure 107/46 L 102/48 L Pulse Oximetry 99 100 Oxygen Delivery Oxygen Flow Rate 05/18/25 09:32 05/18/25 10:01 05/18/25 11:01 Temperature Pulse Rate 85 92 89 Respiratory Rate 20 30 H 29 H Blood Pressure 113/52 L 100/48 L Pulse Oximetry 99 98 Oxygen Delivery Oxygen Flow Rate 05/18/25 11:46 05/18/25 12:01 Temperature Pulse Rate 86 85 Respiratory Rate 22 H 25 H Blood Pressure 97/48 L 116/49 L Pulse Oximetry 98 98 Oxygen Delivery Oxygen Flow Rate Exam Narrative: GENERAL: Chronically ill-appearing HEAD: Normocephalic, atraumatic. EYES: Conjunctivae clear. NOSE: Normal no drainage. NECK: Trachea midline. [place] collar in place RESPIRATORY: Airway patent, respirations nonlabored. Rhonchi bilaterally CARDIOVASCULAR: Regular rate and rhythm GASTROINTESTINAL: Abdomen is soft and nontender. No organomegaly. Bowel sounds normal in all quadrants. Peg tube present GENITOURINARY: PureWick in place MUSCULOSKELETAL: Moves all extremities. No gross deformities. Bilateral +1 lower extremity edema SKIN: Scattered ecchymosis. DTI right heel. NEURO: A&O X4. Speech clear PSYCHIATRIC: Normal interaction H&P: Results Labs Labs: Short CBC 05/18/25 Range/Units 08:56 WBC 18.1 H (4.5-10.0) K/mm3 Hgb 9.2 L (14.0-18.0) g/dL Hct 27.8 L (42.0-52.0) % Plt Count 392 H (150-375) k/mm3 BMP 05/18/25 08:56 Sodium 139 Potassium 2.9 L Chloride 111 H Carbon Dioxide 18 L BUN 113 H* Creatinine 3.06 H Glucose 108 Calcium 9.2 Liver Function 05/18/25 Range/Units 08:56 Total Bilirubin 0.8 (0.2-1.3) mg/dL AST 215 H (17-59) U/L ALT 139 H (6-50) U/L Alkaline Phosphatase 323 H (38-126) U/L Albumin 2.5 L (3.5-5.1) g/dL Urine 05/18/25 Range/Units 09:12 Urine Color Yellow (Yellow) Urine Appearance Clear (Clear) Urine pH 5.0 (5.0-9.0) Ur Specific [place] 1.015 (1.001-1.035) Urine Protein 3+ H (Negative) mg/dL Urine Glucose (UA) Trace H (Negative) mg/dL Assessment and Plan Assessment and plan (1) Pneumonia: Qualifiers: Pneumonia type: due to unspecified organism Laterality: bilateral Lung location: unspecified part of lung Qualified Code(s): J18.9 - Pneumonia, unspecified organism Code(s): J18.9 - Pneumonia, unspecified organism Status: Acute Assessment and Plan: Patient noted to be in respiratory distress during 's visit with him this morning at the facility. Patient did have an increased respiratory rate and new O2 requirement upon EMS arrival. Chest x-ray reveals bilateral pneumonia. Appears slightly progressed compared to previous exam on 05/15. - started on HAP treatment with cefepime and vancomycin on 05/18 - MRSA PCR negative - Viral PCR ordered - sputum culture ordered if able to obtain - requiring 2 L O2 per nasal cannula - DuoNeb q.6 hours - guaifenesin 200 mg Q4 - acetaminophen p.r.n. (2) Acute kidney injury superimposed on CKD: Code(s): N17.9 - Acute kidney failure, unspecified; N18.9 - Chronic kidney disease, unspecified Status: Acute Assessment and Plan: NANDINI likely related to several factors including infection, anemia, diuresis. Baseline creatinine about 3.0. Creatinine on admit 3.06 with BUN 113. UA with no concern of infection. Patient received about 500 mL of LR prior to discontinuation. Recent chest x-rays demonstrate interstitial pulmonary edema and small effusions along with pneumonia. Will continue Lasix at this time at a decreased dose. -40 mg Lasix x1--> decreased to 20 mg per tube daily -carefully monitor respiratory status -trend renal function -monitor I&Os -may need trial of IV fluids based on labs and clinical progression (3) Dysphagia: Qualifiers: Dysphagia type: unspecified Qualified Code(s): R13.10 - Dysphagia, unspecified Code(s): R13.10 - Dysphagia, unspecified Status: Chronic Assessment and Plan: PEG tube placed on 04/20/2025 due to failing modified barium swallow. -registered dietitian consulted for tube feeding assessment -resume Glucerna 1.2 for now -keep patient head of bed at least 30? 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 -continue Retacrit every Rciqmcs-Ofkblgkk-Bmepzimt -trend H&H (5) AVM (arteriovenous malformation) of duodenum, acquired with hemorrhage: Code(s): K31.811 - Angiodysplasia of stomach and duodenum with bleeding Status: Chronic Assessment and Plan: EGD on 05/04/2025 demonstrated two AVM in the duodenum on EGD 05/04 with concern for additional AVMs due to further bleeding post cauterization. Plan for capsule study outpatient. -monitor bowel movements for blood. (6) Deep tissue injury: Code(s): T14.8XXA - Other injury of unspecified body region, initial encounter Status: Chronic Assessment and Plan: Evolving DTI to right medial heel. Wound pictures in chart. -wound care consult -pressure relief measures (7) Atrial fibrillation: Qualifiers: Atrial fibrillation type: unspecified chronic Qualified Code(s): I48.20 - Chronic atrial fibrillation, unspecified Code(s): I48.91 - Unspecified atrial fibrillation Status: Chronic Assessment and Plan: New onset during recent admission. Holding Eliquis in setting of recent GIB with concern for more AVMs. Initial EKG shows AFib with a rate of 88. Follow-up EKG sinus rhythm. 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 insulin use: without assisted use Diabetes mellitus type: type 2 Qualified Code(s): E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; N18.4 - Chronic kidney disease, stage 4 (severe) Code(s): E11.9 - Type 2 diabetes mellitus without complications Status: Chronic Assessment and Plan: - hypoglycemia protocol - POC blood glucose q.6 - home medication: No home medications - correct regimen ordered: Low-dose sliding scale - A1C 6.1 on 02/27/2025 (9) Essential (primary) hypertension: Code(s): I10 - Essential (primary) hypertension Status: Chronic Assessment and Plan: BP stable with most recent 120/45 -continue amlodipine Plan Diet: Tube feeding Glucerna 1.2 at 60 mL/hour GI prophylaxis: Octreotide DVT prophylaxis: SCDs lines/drains: PIV, G-tube Fluids: About 500 mL LR given Code status: DNR DNI Quality VTE Prophylaxis VTE prophylaxis: mechanical ordered Hospitalist [facility] Advance Care Plan I have confirmed that the patient's Advanced Care Plan is present, code status is documented, or surrogate decision maker is listed in patient medical record.: Yes Medication Reconciliation I have utilized all available resources to obtain, update and review the patients current medications (includes all prescriptions, OTC, herbals, cannabis, and nutritional supplements).: Yes
--- NOTE | 2025-05-18 13:48 | WPCEDHO ---
ED Hand Off Checklist All vitals saved:Y IV Site documented:Y All med administrations documented:Y Triage Note Triage Note patient via EFD with c/o acute 05/18/25 08:34 onset resp distress 85% RA. lung sounds decreased. 98% 2L NC LCTA. h/o seizures after fall and C- Spine. G-tube, last feeding midnight. 12 lead Afbib. 110/60 BG 124. Allergies allopurinol Allergy (Unknown, Verified 05/18/25 10:35) Skin Reaction diclofenac Allergy (Unknown, Verified 05/18/25 10:35) Pt doesn't know doxycycline Allergy (Unknown, Verified 05/18/25 10:35) hands probenecid Allergy (Unknown, Verified 05/18/25 10:35) Skin Reaction Family History (Last Reviewed 05/16/25 @ 16:44 by Dina Durham MD) Mother Hypertension Father Malignant neoplasm of prostate Active Medications including assessments/comments Albuterol (Albuterol Sulfate Neb 2.5 Mg/3 Ml Inh) 2.5 mg INHALATION Q6HRT [facility] Last Admin: 05/18/25 13:31 Dose: 2.5 mg Documented By: MEME MAR Nebulizer Assessment Document 05/18/25 13:31 DLW (Rec: 05/18/25 13:31 MEME [id number]) Updraft Nebulizer Treatment Method Mask Treatment Tolerance Good Lactated Ringer's (Lr - Lactated Ringers Iv) 1,000 mls @ 100 mls/hr IV CONT .Q10H [facility] Last Admin: 05/18/25 12:40 Dose: 100 mls/hr Documented By: BHP Infusion/Titration Document 05/18/25 12:40 BHP (Rec: 05/18/25 12:40 BHP [id number]) Intake IV Site Peripheral Access Left Wrist Container Volume 1,000 Waste Amount 0 Dosing Infusion Rate 100 Cumulative Dose Not Applicable Increase/Decrease Started Elapsed Time Elapsed Time ( 0m minutes) Administered/Completed Medications Discontinued Medications Albuterol (Albuterol Sulfate Neb 2.5 Mg/3 Ml Inh) 5 mg INHALATION ONCE STA Stop: 05/18/25 09:00 Last Admin: 05/18/25 09:14 Dose: 5 mg Documented By: EMME Cefepime HCl 1 gm/ Sodium (Chloride) 50 mls @ 100 mls/hr IVPB ONCE STA Stop: 05/18/25 11:04 Last Infusion: 05/18/25 11:28 Dose: Infused Documented By: Admin: 05/18/25 10:58 Dose: 100 mls/hr Documented By: AJAY Notes 05/18/25 09:43 Nurse Note by Cindy Barnes Clarification with the patient and his ; that patient stated that he does not want to be intubated or have CPR. BILLY Beltrán made aware. Initialized on 05/18/25 09:43 - END OF NOTE 05/18/25 09:24 Respiratory Therapy Note by Marium Alvarenga ABG'S delayed due to catheter being placed in by nursing. Initialized on 05/18/25 09:24 - END OF NOTE 05/18/25 08:45 Nurse Note by Cindy Barnes. patient came in on 2L per NC and this RN wanted to evaluate patient without O2. Initialized on 05/18/25 08:45 - END OF NOTE Interventions/Assessments IV / Saline Lock, Insert Start: 05/18/25 08:29 Freq: Status: Active Protocol: Document 05/18/25 08:47 BHP (Rec: 05/18/25 08:48 BHP [id number]) IV Assessment Peripheral Access Left Wrist IV Catheter Access Initiated Before Arrival IV Insertion Date 05/18/25 Catheter Gauge 18 Ultrasound Used for No Placement IV Site Assessment WNL IV Care and WNL Maintenance PA: Cardiovascular Assessment Start: 05/18/25 08:29 Freq: Status: Complete Protocol: Document 05/18/25 08:41 BHP (Rec: 05/18/25 08:44 BHP [id number]) Cardiovascular Assessment Cardiovascular None Symptoms Skin Description Normal Color Heart Sounds Normal Jugular Vein None Distention PA: Respiratory Assessment Start: 05/18/25 08:29 Freq: Status: Complete Protocol: Document 05/18/25 08:41 BHP (Rec: 05/18/25 08:44 BHP [id number]) Respiratory Assessment Symptoms Congestion,Cough Cough Description Loose Oxygen Delivery Oxygen Delivery Room Air Last Vital Signs Temperature 99.1 F 05/18/25 08:34 Pulse Rate 84 05/18/25 13:42 Respiratory Rate 20 05/18/25 13:42 Pulse Oximetry 95 05/18/25 13:33 Blood Pressure 116/49 L 05/18/25 12:01 Blood Pressure Mean 69 05/18/25 12:01 Oxygen Delivery Nasal Cannula 05/18/25 13:33 Oxygen Flow Rate 2 05/18/25 13:33 Weight 86 kg 05/18/25 08:34 Last Result - Abnormals Only WBC 18.1 K/mm3 (4.5-10.0) H 05/18/25 08:56 RBC 3.10 M/mm3 (4.6-6.20) L 05/18/25 08:56 Hgb 9.2 g/dL (14.0-18.0) L 05/18/25 08:56 Hct 27.8 % (42.0-52.0) L 05/18/25 08:56 RDW 16.2 % (11.5-14.5) H 05/18/25 08:56 Plt Count 392 k/mm3 (150-375) H 05/18/25 08:56 Neutrophils % (Manual) 76 % (46-73) H 05/18/25 08:56 Band Neutrophils % 15 % (0-6) H 05/18/25 08:56 Lymphocytes % (Manual) 5 % (18-44) L 05/18/25 08:56 Abs Neuts (Manual) 16.47 K/mm3 (1.3-6.7) H 05/18/25 08:56 Abs Lymphs (Manual) 0.90 K/mm3 (1.1-4.5) L 05/18/25 08:56 PT 19.1 Seconds (11.1-14.7) H 05/18/25 08:56 ABG pCO2 25.5 mmHg (35.0-45.0) L 05/18/25 09:12 ABG pO2 52.0 mmHg (80.0-100.0) L 05/18/25 09:12 ABG HCO3 17.1 mEq/l (22.0-26.0) L 05/18/25 09:12 ABG O2 Saturation 88.9 % (95.0-100.0) L 05/18/25 09:12 Oxyhemoglobin 87.0 % THb (90.0-100.0) L* 05/18/25 09:12 Potassium 2.9 mmol/L (3.4-5.0) L 05/18/25 08:56 Chloride 111 mmol/L (98-107) H 05/18/25 08:56 Carbon Dioxide 18 mmol/L (22-30) L 05/18/25 08:56 BUN 113 mg/dL (9-20) H* 05/18/25 08:56 Creatinine 3.06 mg/dL (0.7-1.3) H 05/18/25 08:56 Estimated GFR 20 (59-) L 05/18/25 08:56 AST 215 U/L (17-59) H 05/18/25 08:56 ALT 139 U/L (6-50) H 05/18/25 08:56 Alkaline Phosphatase 323 U/L (38-126) H 05/18/25 08:56 Total Protein 6.1 g/dL (6.3-8.2) L 05/18/25 08:56 Albumin 2.5 g/dL (3.5-5.1) L 05/18/25 08:56 Urine Protein 3+ mg/dL (Negative) H 05/18/25 09:12 Urine Glucose (UA) Trace mg/dL (Negative) H 05/18/25 09:12 Most Recent Suicide Severity Rating Suicide Severity Rating NO RISK INDICATED 05/18/25 08:34
--- NOTE | 2025-05-18 14:19 | WNDPHOTO ---
PHOTO ONLY - See Nursing Notes and/ or assessments for documentation.
--- NOTE | 2025-05-18 14:21 | WNDPHOTO ---
PHOTO ONLY - See Nursing Notes and/ or assessments for documentation.
--- NOTE | 2025-05-18 15:30 | PC.NURSE ---
Patient arrived to the floor at 1410pm via stretcher from the ER. Patient noted to be on 2L/NC. IV fluids infusing. Awake. industrial engineering placed on and functioning at this time. Vital signs obtained and stable at this time. Photos taken of skin issues. Patient remains in C-collar at this time. No acute distress noted. Family at bedside.
--- NOTE | 2025-05-18 15:50 | PC.NURSE ---
Patient family member at bedside confirmed that patient POA is Shantanu Burleson (son) and his phone number is as follows [phone]
[2025-05-18] MEDS: ATORVASTATIN 20 MG TABLET FEED TUBE (16:40)
[2025-05-18] MEDS: FUROSEMIDE 40 MG TABLET FEED TUBE (16:40)
[2025-05-18] MEDS: levETIRAcetam ORAL SOL 500 MG/5 ML UDC FEED TUBE (16:40)
[2025-05-18] MEDS: FEBUXOSTAT 40 MG TABLET FEED TUBE (16:40)
[2025-05-18] MEDS: IPRATROPIUM 0.5 MG/ALBUTEROL SULFATE 2.5 MG (BASE) AMPUL.NEB 3 ML INHALATION (19:49)
[2025-05-18 20:54] LABS: Anion Gap 11 mmol/L (4-12); Blood Urea Nitrogen 117 mg/dL (9-20); Calcium 9.1 mg/dL (8.4-10.2); Carbon Dioxide 17 mmol/L (22-30); Chloride 109 mmol/L (98-107); Estimated CRCL calculation 13 ml/min; Estimated Glomerular Filt Rate 18; Glucose 148 mg/dL (65-110); Sodium 137 mmol/L (137-145)
[2025-05-18] MEDS: OCTREOTIDE ACETATE 100 MCG/ML VIAL SUB-Q (21:47)
[2025-05-18 22:13] LABS: Potassium 3.5 mmol/L (3.4-5.0)
[2025-05-19] VITALS (24 sets, daily range): BP systolic 126–138; BP diastolic 47–60; PULSE 62–102; RESP 14–21; TEMP 36.3–37.6; O2SAT 92–98; BMI 25.3
[2025-05-19] MEDS: levETIRAcetam ORAL SOL 500 MG/5 ML UDC FEED TUBE ×3 (00:10→20:54)
[2025-05-19 00:59] LABS: Influenza A QL RT-PCR Negative (Negative); Influenza B QL RT-PCR Negative (Negative); RSV RNA, RT-PCR Negative (Negative); SARS-CoV-2 RNA PCR Negative (Negative)
[2025-05-19] MEDS: IPRATROPIUM 0.5 MG/ALBUTEROL SULFATE 2.5 MG (BASE) AMPUL.NEB 3 ML INHALATION ×4 (02:03→20:26)
[2025-05-19 04:38] LABS: Hematocrit 23.5 % (42.0-52.0); Hemoglobin 7.5 g/dL (14.0-18.0); Mean Corpuscular HGB Conc 31.9 g/dl (32-36); Mean Corpuscular Hemoglobin 29.5 pg (26-34); Mean Corpuscular Volume 92.5 fl (80-100); Platelet Count Result 362 k/mm3 (150-375); Red Blood Count 2.54 M/mm3 (4.6-6.20); White Blood Count 23.5 K/mm3 (4.5-10.0)
[2025-05-19 05:15] LABS: Anisocytosis 1+; Band Neutrophils Percent 11 % (0-6); Eosinophils Absolute Manual 0.23 K/mm3 (0.02-0.50); Eosinophils Percent Manual 1 % (0-4); Lymphocytes Absolute Manual 0.94 K/mm3 (1.1-4.5); Lymphocytes Percent Manual 4.0 % (18-44); Microcytosis 1+ (NORMAL); Monocytes Absolute Manual 0.70 K/mm3 (0.1-0.90); Monocytes Percent Manual 3 % (3-9); Neutrophils Absolute Manual 21.62 K/mm3 (1.3-6.7); Neutrophils Percent Manual 81 % (46-73); Ovalocytes Occasional; Schistocytes None Seen; Total Cells Counted 100
[2025-05-19 05:16] LABS: Burr Cells 1+; Hypochromasia 2+; Smudge Cells PRESENT
[2025-05-19] MEDS: OCTREOTIDE ACETATE 100 MCG/ML VIAL SUB-Q ×3 (05:28→20:54)
[2025-05-19 05:31] LABS: Anion Gap 13 mmol/L (4-12); Calcium 8.9 mg/dL (8.4-10.2); Carbon Dioxide 16 mmol/L (22-30); Chloride 108 mmol/L (98-107); Estimated CRCL calculation 13 ml/min; Estimated Glomerular Filt Rate 18; Glucose 170 mg/dL (65-110); Potassium 3.2 mmol/L (3.4-5.0); Sodium 137 mmol/L (137-145)
[2025-05-19 06:22] LABS: Blood Urea Nitrogen 117 mg/dL (9-20)
--- NOTE | 2025-05-19 07:48 | PC.NURSE ---
Patient is awake, alert and oriented at this time. Discussed goals of care and patient verbalizes that he wants to go home. This RN asked him if he wants to go back to rehab for therapy and he stated No. This RN asked discussed his options as they pertain to his wishes including that not going home he probably wouldn't be mobile and would continue to decline. If he chose to go home he needs to speak to his family about his wishes including going home on hospice. The patient states Listen, I am 84 years old and I don't care if I . I spoke to someone about hospice last night. I want to go home and eat and drink what I want and my family can come see me there. This RN discussed aspiration PNA with the patient and what it means. Patient shrugged his shoulders. His walked into the room at this time.
[2025-05-19] MEDS: FEBUXOSTAT 40 MG TABLET FEED TUBE (08:21)
[2025-05-19] MEDS: FUROSEMIDE 20 MG TABLET FEED TUBE (08:21)
[2025-05-19] MEDS: ATORVASTATIN 20 MG TABLET FEED TUBE (08:21)
[2025-05-19] MEDS: EPOETIN ALFA-EPBX 10,000 UNITS/ML VIAL 10000 UNITS SUB-Q (08:23)
--- NOTE | 2025-05-19 08:42 | PC.NURSE ---
This RN had a long discussion with patient's spouse regarding patients wishes, including his desire to go home and ok with dying. Patient alert and awake during this conversation. Spouse is tearful and verbalizes understanding at this time. States that she understands he has been in the hospital alot. This RN told them I would give them some time to discuss his options and come back and check on them.
--- NOTE | 2025-05-19 09:54 | PC.NURSE ---
This RN asked patient and family how the conversations are going regarding the patient going home on hospice. The patients spouse states Our daughter is ok with his decision. Our son would like him to be around a little longer. She further states He, (pointing to the patient), hasn't made his decision yet. This RN states, oh, he just told me he told his son he wants to go home and that while his son said he would like him to be around a little longer he stated that he said he understands. This RN asked Shantanu, have you changed your mind and are undecided? the Patient expresses a strong desire to go home on hospice at this time. States to his I have no quality of life. I lay in the bed, and am in the hospital and do nothing. I want to go to the comfort of my home on hospice. He was very direct and concise in his decision. This RN discussed further what it means to be on hospice. This RN asked the patient Do you want me to let the animal care taker and doctor know that you want to go home on hospice? The patient stated yes. I informed them both that I would make the necessary calls.
--- NOTE | 2025-05-19 10:04 | PC.NURSE ---
MD made aware of patients desire to go home on hospice. Orders placed for care coordination to consult for hospice care.
--- NOTE | 2025-05-19 10:37 | PCWOUND ---
WOCN NOTE Spoke with patient's RN who states patient is wanting to go hospice. Wound care does not need to see patient, photos were taken of Left heel DTI and has friction/maceration to sacrum. RN applied border to heel and is treating sacrum with barrier cream. Wound care to sign off.
[2025-05-19] MEDS: CEFEPIME 1 GM in SODIUM CHLORIDE 0.9% IV 50 ML 100 ML IVPB ×2 (11:14→23:14)
--- NOTE | 2025-05-19 15:48 | PM.IMPN ---
Progress Note: A&P Assessment and Plan (1) Pneumonia: Qualifiers: Pneumonia type: due to unspecified organism Laterality: bilateral Lung location: unspecified part of lung Qualified Code(s): J18.9 - Pneumonia, unspecified organism Code(s): J18.9 - Pneumonia, unspecified organism Status: Acute Assessment and Plan: Patient noted to be in respiratory distress during 's visit with him this morning at the facility. Patient did have an increased respiratory rate and new O2 requirement upon EMS arrival. Chest x-ray reveals bilateral pneumonia. Appears slightly progressed compared to previous exam on 05/15. - started on HAP treatment with cefepime and vancomycin on 05/18 - MRSA PCR negative - Viral PCR ordered - sputum culture ordered if able to obtain - requiring 2 L O2 per nasal cannula - DuoNeb q.6 hours - guaifenesin 200 mg Q4 - acetaminophen p.r.n. (2) Acute kidney injury superimposed on CKD: Code(s): N17.9 - Acute kidney failure, unspecified; N18.9 - Chronic kidney disease, unspecified Status: Acute Assessment and Plan: NANDINI likely related to several factors including infection, anemia, diuresis. Baseline creatinine about 3.0. Creatinine on admit 3.06 with BUN 113. UA with no concern of infection. Patient received about 500 mL of LR prior to discontinuation. Recent chest x-rays demonstrate interstitial pulmonary edema and small effusions along with pneumonia. Will continue Lasix at this time at a decreased dose. -40 mg Lasix x1--> decreased to 20 mg per tube daily -carefully monitor respiratory status -trend renal function -monitor I&Os -may need trial of IV fluids based on labs and clinical progression (3) Dysphagia: Qualifiers: Dysphagia type: unspecified Qualified Code(s): R13.10 - Dysphagia, unspecified Code(s): R13.10 - Dysphagia, unspecified Status: Chronic Assessment and Plan: PEG tube placed on 04/20/2025 due to failing modified barium swallow. -registered dietitian consulted for tube feeding assessment -resume Glucerna 1.2 for now -keep patient head of bed at least 30? 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 -continue Retacrit every Bvjcicu-Vgfaddvq-Bydhkoni -trend H&H (5) AVM (arteriovenous malformation) of duodenum, acquired with hemorrhage: Code(s): K31.811 - Angiodysplasia of stomach and duodenum with bleeding Status: Chronic Assessment and Plan: EGD on 05/04/2025 demonstrated two AVM in the duodenum on EGD 05/04 with concern for additional AVMs due to further bleeding post cauterization. Plan for capsule study outpatient. -monitor bowel movements for blood. (6) Deep tissue injury: Code(s): T14.8XXA - Other injury of unspecified body region, initial encounter Status: Chronic Assessment and Plan: Evolving DTI to right medial heel. Wound pictures in chart. -wound care consult -pressure relief measures (7) Atrial fibrillation: Qualifiers: Atrial fibrillation type: unspecified chronic Qualified Code(s): I48.20 - Chronic atrial fibrillation, unspecified Code(s): I48.91 - Unspecified atrial fibrillation Status: Chronic Assessment and Plan: New onset during recent admission. Holding Eliquis in setting of recent GIB with concern for more AVMs. Initial EKG shows AFib with a rate of 88. Follow-up EKG sinus rhythm. -continue telemetry (8) Diabetes mellitus: Qualifiers: Diabetes mellitus type: type 2 Diabetes mellitus supervisor intermediates insulin use: without long-term use Diabetes mellitus complication status: with kidney complications Diabetes mellitus complication detail: with chronic kidney disease Chronic kidney disease stage: stage 4 (severe) Qualified Code(s): E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; N18.4 - Chronic kidney disease, stage 4 (severe) Code(s): E11.9 - Type 2 diabetes mellitus without complications Status: Chronic Assessment and Plan: - hypoglycemia protocol - POC blood glucose q.6 - home medication: No home medications - correct regimen ordered: Low-dose sliding scale - A1C 6.1 on 02/27/2025 (9) Essential (primary) hypertension: Code(s): I10 - Essential (primary) hypertension Status: Chronic Assessment and Plan: BP stable with most recent 120/45 -continue amlodipine Plan Diet: Tube feeding Glucerna 1.2 at 60 mL/hour GI prophylaxis: Octreotide DVT prophylaxis: SCDs lines/drains: PIV, G-tube Fluids: About 500 mL LR given Code status: DNR DNI patient has decided to transition to comfort care, and awaiting eval by hospice team Subjective Date/time seen: 05/19/25 15:48 Interval history: comfortable at bedside patient has decided to transition to comfort care awaiting hospice consult Review of Systems Review of Systems: All systems reviewed & are unremarkable except as noted in HPI and below Exam Narrative: GENERAL: Chronically ill-appearing HEAD: Normocephalic, atraumatic. EYES: Conjunctivae clear. NOSE: Normal no drainage. NECK: Trachea midline. [place] collar in place RESPIRATORY: Airway patent, respirations nonlabored. Rhonchi bilaterally CARDIOVASCULAR: Regular rate and rhythm GASTROINTESTINAL: Abdomen is soft and nontender. No organomegaly. Bowel sounds normal in all quadrants. Peg tube present GENITOURINARY: PureWick in place MUSCULOSKELETAL: Moves all extremities. No gross deformities. Bilateral +1 lower extremity edema SKIN: Scattered ecchymosis. DTI right heel. NEURO: A&O X4. Speech clear PSYCHIATRIC: Normal interaction Objective Data Vital Signs Vital Signs: Vital Signs - 24 hr 05/18/25 16:00 05/18/25 16:00 05/18/25 18:00 Temperature 98.4 F Pulse Rate 82 91 91 Respiratory Rate 22 H Blood Pressure 122/47 L Pulse Oximetry 98 Oxygen Delivery Oxygen Flow Rate 05/18/25 19:49 05/18/25 19:55 05/18/25 19:55 Temperature Pulse Rate 82 93 Respiratory Rate 20 20 Blood Pressure Pulse Oximetry 99 Oxygen Delivery Nasal Cannula Oxygen Flow Rate 2 05/18/25 20:00 05/18/25 20:00 05/18/25 20:00 Temperature 99.6 F Pulse Rate 83 92 Respiratory Rate 20 Blood Pressure 120/45 L Pulse Oximetry 97 97 Oxygen Delivery Nasal Cannula Oxygen Flow Rate 2 05/18/25 22:00 05/19/25 00:00 05/19/25 00:00 Temperature 98.6 F Pulse Rate 88 83 Respiratory Rate 14 Blood Pressure 132/53 L Pulse Oximetry 96 96 Oxygen Delivery Nasal Cannula Oxygen Flow Rate 2 05/19/25 02:00 05/19/25 02:04 05/19/25 02:11 Temperature Pulse Rate 96 85 85 Respiratory Rate 20 20 Blood Pressure Pulse Oximetry Oxygen Delivery Oxygen Flow Rate 05/19/25 03:56 05/19/25 04:00 05/19/25 04:00 Temperature 98.6 F Pulse Rate 93 92 Respiratory Rate 16 Blood Pressure 126/49 L Pulse Oximetry 95 95 Oxygen Delivery Nasal Cannula Oxygen Flow Rate 2 05/19/25 04:00 05/19/25 05:52 05/19/25 07:32 Temperature Pulse Rate 91 62 Respiratory Rate 16 Blood Pressure Pulse Oximetry 95 95 Oxygen Delivery Nasal Cannula Nasal Cannula Oxygen Flow Rate 2 2 05/19/25 07:32 05/19/25 07:57 05/19/25 08:00 Temperature Pulse Rate 94 93 93 Respiratory Rate 16 18 Blood Pressure Pulse Oximetry 95 Oxygen Delivery Nasal Cannula Oxygen Flow Rate 2 05/19/25 08:00 05/19/25 08:05 05/19/25 08:05 Temperature 98.0 F Pulse Rate 87 93 93 Respiratory Rate 18 18 Blood Pressure 130/60 Pulse Oximetry 96 96 Oxygen Delivery Nasal Cannula Oxygen Flow Rate 1 05/19/25 08:09 05/19/25 10:00 05/19/25 12:00 Temperature Pulse Rate 93 91 90 Respiratory Rate 18 Blood Pressure Pulse Oximetry 96 Oxygen Delivery Nasal Cannula Oxygen Flow Rate 1 05/19/25 12:00 05/19/25 12:13 05/19/25 14:00 Temperature 99.7 F H Pulse Rate 90 92 93 Respiratory Rate 18 Blood Pressure 130/56 L Pulse Oximetry 97 Oxygen Delivery Oxygen Flow Rate 05/19/25 14:12 05/19/25 14:17 Temperature Pulse Rate 92 92 Respiratory Rate 18 16 Blood Pressure Pulse Oximetry Oxygen Delivery Oxygen Flow Rate Intake/Output Intake/Output: Intake & Output 05/16/25 05/17/25 05/18/25 05/19/25 23:59 23:59 23:59 23:59 Intake Total 100 541 Output Total 100 500 Balance 0 41 Meds/Results Medications: Active Medications Generic Name Dose Route Start Last Admin Trade Name Freq PRN Reason Stop Dose Admin Acetaminophen 650 mg 05/18/25 15:14 Acetaminophen Elixir 325 Mg/10.15 Ml Udc FEED TUBE Q4H PRN Mild Pain (1-3) or Fever Albuterol/Ipratropium 3 ml 05/18/25 20:00 05/19/25 14:10 Ipratropium 0.5 Mg/Albuterol Sulfate 2.5 Mg (Base) Ampul.Neb 3 Ml INHALATION 3 ml Q6HRT OLENA Administration Amlodipine Besylate 5 mg 05/19/25 09:00 05/19/25 08:21 Amlodipine Besylate 5 Mg Tablet FEED TUBE 5 mg DAILY OLENA Administration Atorvastatin Calcium 20 mg 05/19/25 09:00 05/19/25 08:21 Atorvastatin 20 Mg Tablet FEED TUBE 20 mg DAILY OLENA Administration Dextrose 12.5 gm 05/18/25 12:49 Dextrose 50% 25 Gm/50 Ml Syringe IV PUSH PRN PRN Hypoglycemia Protocol Epoetin Donte-epbx 10,000 units 05/19/25 09:00 05/19/25 08:23 Epoetin Donte-Epbx 10,000 Units/Ml Vial SUB-Q 10,000 units TUTHSA@09 OLENA Administration Febuxostat 40 mg 05/19/25 09:00 05/19/25 08:21 Febuxostat 40 Mg Tablet FEED TUBE 40 mg DAILY OLENA Administration Furosemide 20 mg 05/19/25 09:00 05/19/25 08:21 Furosemide 20 Mg Tablet FEED TUBE 20 mg DAILY OLENA Administration Glucagon 1 mg 05/18/25 12:49 Glucagon For Inj 1 Mg Vial IM PRN PRN Hypoglycemia Protocol Glucose 15 gm 05/18/25 12:49 Glucose Oral Gel 15 Gm Of Glucse In 37.5 Gm Tube PO PRN PRN Hypoglycemia Protocol Guaifenesin 200 mg 05/18/25 20:30 Guaifenesin 200 Mg/10 Ml Udc PO Q4H PRN Expectorant Cefepime HCl 1 gm/ Sodium 50 mls @ 100 mls/hr 05/18/25 23:00 05/19/25 11:14 Chloride IVPB 100 mls/hr Q12H OLENA Administration Dextrose 1,000 mls @ 100 mls/hr 05/18/25 12:49 Dextrose 5% 1,000 Ml IVPB PRN PRN Hypoglycemia Protocol Insulin Aspart 2 - 5 units 05/18/25 18:00 05/19/25 12:44 Insulin Aspart (*Bkc) 100 Units/Ml SUB-Q Not Given Q6HR OLENA Protocol Levetiracetam 500 mg 05/18/25 15:20 05/19/25 08:20 Levetiracetam Oral Pallavi 500 Mg/5 Ml Udc FEED TUBE 500 mg Q12HR OLENA Administration Octreotide Acetate 100 mcg 05/18/25 22:00 05/19/25 14:18 Octreotide Acetate 100 Mcg/Ml Vial SUB-Q 100 mcg Q8HR OLENA Administration Radiology Results: ITS Impressions Chest X-Ray 05/18/25 10:07 Impression: Bilateral pneumonia. Findings appear slightly progressed compared to the previous exam Labs Labs: Laboratory Results - last 24 hr 05/18/25 05/18/25 05/18/25 16:48 20:36 20:49 WBC RBC Hgb Hct MCV MCH MCHC RDW Plt Count MPV Immature Gran % (Auto) Neut % (Auto) Lymph % (Auto) [place] % (Auto) Eos % (Auto) Baso % (Auto) Lymph # (Auto) [place] # (Auto) Eos # (Auto) Baso # (Auto) Abs Immat Gran (auto) Absolute Neuts (auto) Absolute Nucleated RBC Total Counted Neutrophils % (Manual) Band Neutrophils % Lymphocytes % (Manual) Monocytes % (Manual) Eosinophils % (Manual) Nucleated RBC % Abs Neuts (Manual) Abs Lymphs (Manual) Abs Monocytes (Manual) Absolute Eos (Manual) Smudge Cells Platelet Estimate Large Platelets Hypochromasia Anisocytosis Microcytosis Ovalocytes [place] Cells Schistocytes Sodium 137 Potassium 3.5 Chloride 109 H Carbon Dioxide 17 L Anion Gap 11 BUN 117 H* Creatinine 3.30 H Estim Creat Clear Calc 13 Estimated GFR 18 L Glucose 148 H POC Capillary Glucose 143 H 149 H Calcium 9.1 Influenza A (RT-PCR) Influenza B (RT-PCR) RSV (RT-PCR) SARS-CoV-2 RNA (RT-PCR) 05/18/25 05/19/25 05/19/25 23:22 00:17 03:50 WBC 23.5 H RBC 2.54 L Hgb 7.5 L Hct 23.5 L MCV 92.5 MCH 29.5 MCHC 31.9 L RDW 16.4 H Plt Count 362 MPV 9.5 Immature Gran % (Auto) Not Reportable Neut % (Auto) Not Reportable Lymph % (Auto) Not Reportable [place] % (Auto) Not Reportable Eos % (Auto) Not Reportable Baso % (Auto) Not Reportable Lymph # (Auto) Not Reportable [place] # (Auto) Not Reportable Eos # (Auto) Not Reportable Baso # (Auto) Not Reportable Abs Immat Gran (auto) Not Reportable Absolute Neuts (auto) Not Reportable Absolute Nucleated RBC Not Reportable Total Counted 100 Neutrophils % (Manual) 81 H Band Neutrophils % 11 H Lymphocytes % (Manual) 4.0 L Monocytes % (Manual) 3 Eosinophils % (Manual) 1 Nucleated RBC % Not Reportable Abs Neuts (Manual) 21.62 H Abs Lymphs (Manual) 0.94 L Abs Monocytes (Manual) 0.70 Absolute Eos (Manual) 0.23 Smudge Cells Present Platelet Estimate Adequate Large Platelets Present Hypochromasia 2+ Anisocytosis 1+ Microcytosis 1+ Ovalocytes Occasional Ravi Cells 1+ Schistocytes None seen Sodium 137 Potassium 3.2 L Chloride 108 H Carbon Dioxide 16 L Anion Gap 13 H BUN 117 H* Creatinine 3.30 H Estim Creat Clear Calc 13 Estimated GFR 18 L Glucose 170 H POC Capillary Glucose 171 H Calcium 8.9 Influenza A (RT-PCR) Negative Influenza B (RT-PCR) Negative RSV (RT-PCR) Negative SARS-CoV-2 RNA (RT-PCR) Negative 05/19/25 05/19/25 05:31 12:12 WBC RBC Hgb Hct MCV MCH MCHC RDW Plt Count MPV Immature Gran % (Auto) Neut % (Auto) Lymph % (Auto) [place] % (Auto) Eos % (Auto) Baso % (Auto) Lymph # (Auto) [place] # (Auto) Eos # (Auto) Baso # (Auto) Abs Immat Gran (auto) Absolute Neuts (auto) Absolute Nucleated RBC Total Counted Neutrophils % (Manual) Band Neutrophils % Lymphocytes % (Manual) Monocytes % (Manual) Eosinophils % (Manual) Nucleated RBC % Abs Neuts (Manual) Abs Lymphs (Manual) Abs Monocytes (Manual) Absolute Eos (Manual) Smudge Cells Platelet Estimate Large Platelets Hypochromasia Anisocytosis Microcytosis Ovalocytes [place] Cells Schistocytes Sodium Potassium Chloride Carbon Dioxide Anion Gap BUN Creatinine Estim Creat Clear Calc Estimated GFR Glucose POC Capillary Glucose 176 H 200 H Calcium Influenza A (RT-PCR) Influenza B (RT-PCR) RSV (RT-PCR) SARS-CoV-2 RNA (RT-PCR) Quality VTE Prophylaxis VTE prophylaxis: mechanical ordered
--- NOTE | 2025-05-19 23:22 | PC.NURSE ---
This patient, Shantanu Burleson, was transferred to [[id number] ] on 05/19/25 at 2322. Personal belongings sent with patient. Report given to [Anna landaverde ]. Appropriate documentation sent with patient.
[2025-05-20] MEDS: INSULIN ASPART (*BKC) 100 UNITS/ML SUB-Q ×3 (00:31→12:15)
[2025-05-20 06:30] VITALS: BP 126/49; PULSE 77; RESP 20; TEMP 36.9; O2SAT 95
[2025-05-20 07:30] VITALS: PULSE 63; RESP 14
[2025-05-20] MEDS: IPRATROPIUM 0.5 MG/ALBUTEROL SULFATE 2.5 MG (BASE) AMPUL.NEB 3 ML INHALATION ×2 (07:35→14:12)
[2025-05-20 07:37] VITALS: PULSE 63; RESP 14
[2025-05-20] MEDS: ATORVASTATIN 20 MG TABLET FEED TUBE (08:09)
[2025-05-20] MEDS: FEBUXOSTAT 40 MG TABLET FEED TUBE (08:09)
[2025-05-20] MEDS: levETIRAcetam ORAL SOL 500 MG/5 ML UDC FEED TUBE (08:09)
[2025-05-20] MEDS: FUROSEMIDE 20 MG TABLET FEED TUBE (08:09)
[2025-05-20] MEDS: ACETAMINOPHEN ELIXIR 325 MG/10.15 ML UDC 650 MG FEED TUBE (10:48)
[2025-05-20] MEDS: CEFEPIME 1 GM in SODIUM CHLORIDE 0.9% IV 50 ML 100 ML IVPB (12:00)
[2025-05-20 14:00] VITALS: BP 119/76; PULSE 78; RESP 18; TEMP 37.7; O2SAT 95
[2025-05-20 14:21] VITALS: PULSE 70; RESP 14
[2025-05-20 14:26] VITALS: PULSE 67; RESP 14
--- NOTE | 2025-05-20 14:44 | P.DS_ITS ---
DS: Admitting Diagnosis Discharge Date 05/20/25 Admitting Diagnosis - pneumonia - NANDINI - dysphagia DS: Discharge Diagnosis Discharge Diagnosis (1) Pneumonia: Qualifiers: Pneumonia type: due to unspecified organism Laterality: bilateral Lung location: unspecified part of lung Qualified Code(s): J18.9 - Pneumonia, unspecified organism Code(s): J18.9 - Pneumonia, unspecified organism Status: Acute (2) Acute kidney injury superimposed on CKD: Code(s): N17.9 - Acute kidney failure, unspecified; N18.9 - Chronic kidney disease, unspecified Status: Acute (3) Dysphagia: Qualifiers: Dysphagia type: unspecified Qualified Code(s): R13.10 - Dysphagia, unspecified Code(s): R13.10 - Dysphagia, unspecified Status: Chronic (4) Erythropoietin deficiency anemia: Code(s): D63.1 - Anemia in chronic kidney disease Status: Chronic (5) AVM (arteriovenous malformation) of duodenum, acquired with hemorrhage: Code(s): K31.811 - Angiodysplasia of stomach and duodenum with bleeding Status: Chronic (6) Deep tissue injury: Code(s): T14.8XXA - Other injury of unspecified body region, initial encounter Status: Chronic (7) Atrial fibrillation: Qualifiers: Atrial fibrillation type: unspecified chronic Qualified Code(s): I48.20 - Chronic atrial fibrillation, unspecified Code(s): I48.91 - Unspecified atrial fibrillation Status: Chronic (8) Diabetes mellitus: Qualifiers: Diabetes mellitus type: type 2 Diabetes mellitus intermediate insulin use: without intermediate use Diabetes mellitus complication status: with kidney complications Diabetes mellitus complication detail: with chronic kidney disease Chronic kidney disease stage: stage 4 (severe) Qualified Code(s): E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; N18.4 - Chronic kidney disease, stage 4 (severe) Code(s): E11.9 - Type 2 diabetes mellitus without complications Status: Chronic (9) Essential (primary) hypertension: Code(s): I10 - Essential (primary) hypertension Status: Chronic DS: Summary Hospital Course Reason for hospitalization: - pneumonia - NANDINI - dysphagia Hospital Course: Mr. Shantanu Burleson, an 84-year-old male with a complex medical history including chronic atrial fibrillation, duodenal AVMs with prior GI bleeding, stage 4 chronic kidney disease, type 2 diabetes mellitus, hypertension, prostate cancer, and a recent type 2 odontoid fracture, was admitted from a rehabilitation facility on 05/18/25 for acute respiratory distress and hypoxia. He was found to have a new oxygen requirement, tachypnea, and drowsiness. Initial evaluation revealed leukocytosis, anemia, acute on chronic kidney injury (creatinine 3.06, BUN 113), and hypoxemia on ABG. Chest x-ray demonstrated bilateral pneumonia, with findings progressed from prior imaging. He was started on empiric hospital- acquired pneumonia coverage with cefepime and vancomycin, along with supportive care including supplemental oxygen, scheduled DuoNebs, and guaifenesin. MRSA and viral PCRs were negative. His hospital course was complicated by persistent NANDINI on CKD, likely multifactorial from infection, anemia, and diuresis. Furosemide was continued at a reduced dose, and renal function was closely monitored. He remained on tube feeds via PEG, with aspiration precautions and dietitian involvement. Throughout admission, Mr. Burleson remained DNR/DNI per prior advanced directives. Overall, his functional status has continued to decline and he has not made any meaningful recovery while in [facility]. Patient and his made the decision to transition to comfort care with hospice services at home. He was discharged home with guarded prognosis with hospice to be initiated this evening. IV antibiotics were transitioned to Levaquin per PEG tube on discharge to complete 5-day course. Bedside nurse confirms that hospice nurse will educate on administering meds per G-tube this evening. Status at Discharge Functional status at discharge: bed bound Overall status at discharge: patient is not back to baseline Time Spent with Patient Time attestation: Total time spent providing and/or coordinating discharge services: Time spent: Greater than 30 minutes Exam Narrative: General: Ill-appearing, cachectic Eyes: EOMI ENT: neck supple Cardiovascular: Regular rate and rhythm Respiratory: Left lower lobe bronchi, respirations even and unlabored on room air Gastrointestinal: Soft, non tender Genitourinary: no suprapubic tenderness Musculoskeletal: No edema, C-collar in place Skin: warm, dry Neuro: Alert. Psych: Mood appropriate DS: Data Data Completed and Pending Completed studies during hospitalization: ITS Impressions Chest X-Ray 05/18/25 10:07 Impression: Bilateral pneumonia. Findings appear slightly progressed compared to the previous exam Labs on day of discharge: Labs from last 24 hours 05/20/25 05/20/25 05/20/25 11:51 06:23 00:17 POC Capillary Glucose 217 H 211 H 219 H Discharge Plan Discharge Attending physician on discharge: Jose Angel Varghese Consulting providers: Tri Parekh; Marguerite Andrew Discharging Clinician: Marguerite Andrew Anticipated Discharge Date/Time: 05/20/25 14:34 Patient Disposition: Hospice - Home Activity: unlimited Diet: as tolerated Discharge Instructions: Hospice well be assuming your care. You have been started on levofloxacin for pneumonia. You can start this tomorrow and will take it every other day for 2 doses. Patient Language: E[place]re[place] Stand Alone Forms: General Discharge Information Discharge Medications: New levofloxacin 500 mg tablet 500 mg feeding tube Q48H Qty: 2 0RF furosemide 20 mg Tablet 20 mg feeding tube DAILY 30 Days Qty: 30 0RF Continued acetaminophen [Nortemp] 160 mg/5 mL Suspension 650 mg feeding tube Q4H PRN (Reason: Mild Pain (1-3) Or Fever) Qty: 30 0RF amlodipine [Norvasc] 5 mg Tablet 5 mg feeding tube DAILY Qty: 30 0RF Retacrit 10,000 unit/mL Solution 10,000 unit subcut TUTHSA@09 Qty: 10 0RF lidocaine [Lidoderm] 5 % Adhesive Patch,Medicated 1 patch transdermal DAILY Qty: 30 0RF atorvastatin [Lipitor] 20 mg tablet 20 mg feeding tube DAILY Qty: 30 0RF febuxostat 80 mg tablet 40 mg feeding tube DAILY Qty: 90 1RF nystatin 100,000 unit/gram powder 1 applic topical BID PRN (Reason: blistering) Rx Instructions: apply to groin area as needed ondansetron 4 mg tablet,disintegrating 4 mg PO Q6H PRN (Reason: nausea and vomiting) levetiracetam 100 mg/mL Solution 500 mg feeding tube Q12HR Qty: 473 0RF Discontinued octreotide acetate [Sandostatin] 100 mcg/mL Solution 100 mcg subcut Q8HR 30 Days Qty: 90 0RF furosemide 40 mg tablet See Rx Instructions .ROUTE .COMPLEX Qty: 90 2RF Dose Instruction: TAKE 1 TABLET BY MOUTH EVERY DAY Patient Comments: 1st dose to be resumed 05/18 Rx Instructions: TAKE 1 TABLET BY MOUTH EVERY DAY Date of admission: 05/18/25 14:37 Primary Care Provider: Presley Maza Admitting Provider: Adolph Dunne Attending physician on admission: Adolph Dunne Condition: Guarded Prognosis
== END 2025-05-20 17:45 | disposition hospice, home (50) | DRG 193 ==
LOC: ANHED 08:48 → ANHIMU 13:15 → ANH3MEDSUR 05-19 23:24
PROVIDERS: Nurse Practitioner Adult Health; Admitting Provider General Practice; Emergency Provider Emergency Medicine; PCP Internal Medicine; Visit Provider Physician Assistant
DX: J18.9 Pneumonia, unspecified organism (principal); K31.811 Angiodysplasia of stomach and duodenum with bleeding; I48.20 Chronic atrial fibrillation, unspecified; N17.9 Acute kidney failure, unspecified; N18.4 Chronic kidney disease, stage 4 (severe); I12.9 Hypertensive chronic kidney disease with stage 1 through stage 4 chronic kidney disease, or unspecified chronic kidney disease; E11.22 Type 2 diabetes mellitus with diabetic chronic kidney disease; R06.03 Acute respiratory distress; R09.02 Hypoxemia; R13.10 Dysphagia, unspecified; S90.31XA Contusion of right foot, initial encounter; X58.XXXA Exposure to other specified factors, initial encounter; D63.1 Anemia in chronic kidney disease; Z93.1 Gastrostomy status; Z51.5 Encounter for palliative care; Z66 Do not resuscitate; G40.909 Epilepsy, unspecified, not intractable, without status epilepticus; I70.0 Atherosclerosis of aorta; E78.2 Mixed hyperlipidemia; M19.049 Primary osteoarthritis, unspecified hand; M19.09 Primary osteoarthritis, other specified site; M48.061 Spinal stenosis, lumbar region without neurogenic claudication; Z90.49 Acquired absence of other specified parts of digestive tract; Z87.891 Personal history of nicotine dependence; Z79.01 Long term (current) use of anticoagulants; Z85.46 Personal history of malignant neoplasm of prostate
CPT/HCPCS: 36415; 36600; 71045; 80048; 80053; 81001; 82805; 82948; 85018; 85025; 85610; 85730; 87040; 87637; 87641; 93005; 94640; 96365; 99285; A9270; G0378; J0692; J1815; J2354; J7120; Q5105